=== PATIENT | male | born 1965 | race Caucasian/White ===

== ENCOUNTER 2016-07-31 01:09 | Emergency (ER) | payer BC ==
[~2016-07-31] VITALS: Ht 177.8 cm; Wt 104.6 kg
[~2016-07-31 01:09] MED LIST: AMR2 PO; ASPI81TA28 PO; ATOR-22 PO; BUPR-83 PO; GLC/500 PO; IBUP600T44 PO; INSDGI SC; LISI-461 PO; LPR25 PO; SILD100T PO; SITA50TA9 PO
[2016-07-31 01:12] VITALS: TEMP 36.6; Ht 177.8 cm; Wt 104.6 kg
[2016-07-31] MEDS ORDERED: PROMETHAZINE HCL INJ 25 MG/ML 1 ML VIAL IM STA (01:35)
[2016-07-31] MEDS ORDERED: KETOROLAC TROMETHAMINE 60 MG/2 ML VIAL IM STA (01:35)
[2016-07-31] MEDS ORDERED: MoRPHine SULFATE 4 MG/ML 1 ML CARP\\VIAL IM ONE (01:45)
[2016-07-31] MEDS ORDERED: DEXAMETHASONE SOD INJ 10 MG/ML VIAL IM ONE (01:45)
[2016-07-31] MEDS ORDERED: GLIM4TAB2 PO (02:48)
[2016-07-31] MEDS ORDERED: METO100T14 PO (02:48)
[2016-07-31] MEDS ORDERED: WLLXL300 PO (02:48)
[2016-07-31] MEDS ORDERED: VERA120C2 PO (02:48)
[2016-07-31] MEDS ORDERED: NRN100 PO (02:48)
[2016-07-31] MEDS ORDERED: INSDGIPEN SC (02:50)
[2016-07-31] MEDS ORDERED: OXYCODONE IR HOME PACK PO ONE (03:00)
[2016-07-31 03:20] VITALS: BP 144/82; PULSE 82; O2SAT 93
--- NOTE | 2016-07-31 04:30 | EMERGENCY ROOM VISIT NOTE ---
History First contact with patient: 01:21 Chief Complaint: BACK PAIN Stated Complaint: PAIN IN LEFT LOWER BACK, DOWN LEG History of Present Illness The patient is a 50 year old male who presents to the Emergency Room with complaints of right-sided low back pain that radiates down his right side leg. The patient states he has had slowly worsening symptoms over the past 3 or 4 days. He does not recall a distinct injury or trauma. He has had kidney stones in the past, but this does not feel like his kidney stones. He states that different positions and motions exacerbate his discomfort. He has been trying [id number] analgesics without relief of symptoms. He has been using the bathroom without difficulty. No saddle paresthesias. He does not report fever or chills. He does have a report of an old injury to his back 2 years ago, and occasionally this does cause him pain. He was not able to sleep the past 2 nights because of his pain, prompting him to come to the ER today for relief. He rates his discomfort an 8/10. Review of Systems More than 10 systems were reviewed and otherwise negative with the exception of history of present illness. Past Medical/Surgical History Medical Problems: (1) CALCULUS OF URETER (2) Depression (3) DIAB RADHA WO COMPL, TYPE II OR UNSPEC TYPE, NOT UNCNTRLD (4) Hyperlipidemia (5) Hypertension (6) Replacement of total knee joint Family History No pertinent family history Social History Smoking Status: Never Smoker Alcohol Use: occasionally Marital Status: Occupation Status: employed Current/Historical Medications Scheduled Aspirin (Aspirin Ec), 81 MG PO DAILY Bupropion HCl (Bupropion HCl Xl), 300 MG PO DAILY Gabapentin (Gabapentin), 100 MG PO TID Glimepiride (Glimepiride), 4 MG PO BID Insulin Glargine (Lantus Solostar), 20 UNITS SC QPM Lisinopril (Zestril), 5 MG PO DAILY Metoprolol Tartrate (Lopressor) (Lopressor), 100 MG PO BID Sitagliptin-Metformin Hcl (Janumet), 1 TAB PO BID Verapamil Hcl (Verapamil Hcl Er), 120 MG PO DAILY Allergies Coded Allergies: Levofloxacin (Verified Allergy, Mild, GI SYMPTOMS, 07/31/16) Anxiety Pneumococcal Polysaccharides (Verified Allergy, Mild, GI SYMPTOMS, 07/31/16) Flu s/s Uncoded Allergies: Tetanus/diptheria/pertussis (Adverse Reaction, Mild, GI SYMPTOMS, 02/22/14) Flu s/s Physical Exam Vital Signs Date Time Temp Pulse Resp B/P Pulse Ox O2 Delivery O2 Flow Rate FiO2 07/31/16 03:20 82 20 144/82 93 07/31/16 01:12 36.6 80 18 165/82 97 Room Air Pain Rating (0-10): 5.0 Physical Exam VITALS: Vitals are noted on the nurse's note and reviewed by myself. Vital signs stable. GENERAL: Well-developed, well-nourished, white male, who is in no acute distress and resting comfortably. Patient is cooperative with the examination. HEAD: Normocephalic atraumatic. NECK: Supple without nuchal rigidity. No lymphadenopathy. No thyromegaly. Cervical spine is nontender. HEART: Regular rate and rhythm without murmurs gallops or rubs. LUNGS: Clear to auscultation bilaterally without wheezes, rales or rhonchi. No retractions or accessory muscle use. MUSCULOSKELETAL: No muscle atrophy, erythema, or edema noted. Mild lower lumbar tenderness on palpation with right SI joint tenderness. No saddle paresthesias. Positive straight leg raise on the right. Negative straight leg raise on the left. DTRs intact to the lower extremities. NEURO: Patient was alert and oriented to person place and time. CN II through XII grossly intact. Medical Decision & Procedures Medications Administered Medications (Trade) Dose Ordered Sig/Silvano Route Start Time Stop Time Status Last Admin Dose Admin Morphine Sulfate (MoRPHine SULFATE INJ) 8 mg NOW ONCE IM 07/31/16 01:45 07/31/16 01:46 DC 07/31/16 02:03 8 MG Ketorolac Tromethamine (Toradol Inj) 60 mg NOW STAT IM 07/31/16 01:35 07/31/16 01:36 DC 07/31/16 02:03 60 MG Promethazine HCl (Phenergan Inj) 25 mg NOW STAT IM 07/31/16 01:35 07/31/16 01:36 DC 07/31/16 02:01 25 MG Dexamethasone Sodium Phosphate (Decadron Inj) 10 mg NOW ONCE IM 07/31/16 01:45 07/31/16 01:46 DC 07/31/16 02:02 10 MG Oxycodone HCl (Roxicodone Immediate Rel 5MG Home Pack) 1 homepack UD ONCE PO 07/31/16 03:00 07/31/16 03:01 DC 07/31/16 03:18 1 HOMEPACK ED Course Physical exam and history were performed. Nursing notes and EMR were reviewed. Patient appears to have low back pain symptoms with radiation down his right leg for the past few days. The patient does have a positive straight leg raise and history of old injury to his back. He does not have a recent injury. Because of the patient's discomfort I did elect to provide him a milligrams IM morphine, 60 mg IM Toradol, 10 mg IM Decadron, 25 mg IM Phenergan. X-rays were performed and do not show significant acute process. There does appear to be some chronic arthritic changes. Official radiology read is pending at the time of this dictation. Overall the patient felt much better after analgesics here in the department. He was able to rest quite comfortably and feels well for discharge home. I will give him a home pack of OxyIR and instructions to follow with his PCP in the next 1-2 days for recheck. He was otherwise invited back to the ER anytime and rated his discomfort a 2/10 at the time of her departure. 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 The chart was completed utilizing [employer] Speech Voice Recognition Software. Grammatical errors, random word insertions, pronoun errors, and incomplete sentences are an occasional consequence of this system due to software limitations, ambient noise, and hardware issues. Any formal questions or concerns about the content, text, or information contained within the body of this dictation should be directly addressed to the provider for clarification. . Medical Decision Differential diagnosis: Etiologies such as musculoskeletal, disc herniation, fracture, aortic disease, metastatic disease, cord compression, discitis, infection, renal colic, gastrointestinal, acute exacerbation of chronic back pain, sciatica, cauda equina, as well as others were entertained. Impression Primary Impression: Low back pain with sciatica Departure Information Dispostion Home / Self-Care Condition GOOD Forms HOME CARE DOCUMENTATION FORM, IMPORTANT VISIT INFORMATION Patient Instructions My [facility] Additional Instructions You were seen and evaluated today on an emergency basis only. This is not a substitute for, or an effort to provide, complete comprehensive medical care. It is not possible to recognize and treat all injuries or illnesses in a single emergency department visit. For this reason it is recommended that you followup with your primary care physician in the next 1 to 2 days for recheck of your condition. For baseline pain relief you may alternate ibuprofen and acetaminophen every 4 hours for pain control. Take 600 mg ibuprofen (Advil) and then 4 hours later take 1000 mg acetaminophen (Tylenol). Do not take more than 3000 mg acetaminophen in a single day. Oxycodone (OxyIR) 5mg (homepack): Take ONE pill every SIX hours for breakthrough pain. Avoid alcohol, operating machinery or dangerous equipment, working on ladders or roofs, DRIVING, or situations where being under the influence may be dangerous. It is recommended to use an euug-mci-lpudcob stool softener such as Colace, 100mg twice daily while taking this medication to avoid constipation. You are welcome to return to the emergency department anytime with new, worsening, or concerning symptoms.
--- NOTE | 2016-07-31 07:17 | DIAGNOSTIC IMAGING REPORT ---
LUMBAR SPINE 5 VIEWS HISTORY: Right side low back pain COMPARISON: None. FINDINGS: There is no fracture. Bilateral L5 spondylolysis with associated grade II anterolisthesis. This remains unchanged. Mild disc space narrowing at L1-L2 and moderate to space narrowing L5-S1 have slightly progressed. Severe facet degenerative changes at L5-S1 are again noted. IMPRESSION: 1. No change in the bilateral L5 spondylolysis with associated grade II anterolisthesis. 2. Mild progression of the degenerative disc disease at L1-L2 and L5-S1. 3. No fractures within the lumbar spine. Electronically signed by: Nilton Mchugh M.D. 07/31/2016 7:15 AM Dictated Date/Time: 07/31/2016 7:13 AM
== END 2016-07-31 03:20 | disposition home or self-care (01) ==
LOC: C.EDB 01:11
DX: M54.41 Lumbago with sciatica, right side (principal); E78.5 Hyperlipidemia, unspecified; I10 Essential (primary) hypertension; E11.9 Type 2 diabetes mellitus without complications; F32.9 Major depressive disorder, single episode, unspecified; Z79.4 Long term (current) use of insulin; Z79.82 Long term (current) use of aspirin; Z79.899 Other long term (current) drug therapy; Z87.442 Personal history of urinary calculi; Z87.828 Personal history of other (healed) physical injury and trauma

== ENCOUNTER → 2017-03-13 | Outpatient (CLI) | payer BC ==
[~2017-03-13] MED LIST changes: -AMR2 PO; -ATOR-22 PO; -BUPR-83 PO; -GLC/500 PO; +GLIM4TAB2 PO; -IBUP600T44 PO; -INSDGI SC; +INSDGIPEN SC; -LPR25 PO; +METO100T14 PO; +NRN100 PO; -SILD100T PO; +VERA120C2 PO; +WLLXL300 PO
--- NOTE | 2017-03-13 13:20 | DIAGNOSTIC IMAGING REPORT ---
RIGHT GREAT TOE 3 VIEWS CLINICAL HISTORY: L03.115 CELLULITIS COMPARISON: None. DISCUSSION: No acute fractures or dislocations are visualized. There are vascular calcifications present. There is no conventional radiographic evidence of osteomyelitis. There is no visible air within soft tissues. IMPRESSION: 1. No acute fractures 2. No conventional radiographic evidence of osteomyelitis Electronically signed by: Shaun Das M.D. 03/13/2017 1:18 PM Dictated Date/Time: 03/13/2017 1:17 PM
== END | disposition home or self-care (01) ==
LOC: C.RAD1850 12:54
PROVIDERS: ATTEND Student in an Organized Health Care Education/Training Program
DX: L03.115 Cellulitis of right lower limb (principal)

== ENCOUNTER 2017-05-07 08:33 | Emergency (ER) | payer OTHER ==
[~2017-05-07] VITALS: Ht 177.8 cm; Wt 103.0 kg
[~2017-05-07 08:33] MED LIST changes: +CEPH500C2 PO
[2017-05-07 08:34] VITALS: TEMP 36.6; Ht 177.8 cm; Wt 103.0 kg
[2017-05-07] MEDS ORDERED: CEFAZOLIN SOD 1000MG/7.5 ML IV PUSH IV STA (08:46)
[2017-05-07 09:10] LABS: BASO % 0.2 %; BASO ABS # 0.03 K/uL (0-0.2); EOS % 0.9 %; EOS ABS # 0.12 K/uL (0-0.5); HEMATOCRIT 41.8 % (42-52); HEMOGLOBIN 14.8 g/dL (14.0-18.0); IG# 0.04 K/uL (0.00-0.02); LYMPH % 10.8 %; LYMPH ABS # 1.45 K/uL (1.2-3.4); MEAN CELL VOLUME 88.4 fL (80-100); MEAN CORPUSCULAR HEMOGLOBIN 31.3 pg (25-34); MEAN CORPUSCULAR HGB CONC 35.4 g/dl (32-36); MEAN PLATELET VOLUME 10.5 fL (7.4-10.4); NEUT % 78.8 %; NEUT ABS # 10.54 K/uL (1.4-6.5); PLATELET COUNT 254 K/uL (130-400); RED CELL DISTRIBUTION WIDTH CV 12.7 % (11.5-14.5); WHITE BLOOD COUNT 13.38 K/uL (4.8-10.8)
[2017-05-07 09:57] LABS: CALCIUM 8.7 mg/dl (8.5-10.1); CREATININE 0.91 mg/dl (0.60-1.40); POTASSIUM 4.4 mmol/L (3.5-5.1)
--- NOTE | 2017-05-07 10:49 | DIAGNOSTIC IMAGING REPORT ---
RIGHT FOOT 3 VIEWS HISTORY: great toe infection COMPARISON: Right first toe 03/13/2017. FINDINGS: There is no fracture or dislocation. Soft tissue swelling within the dorsum of the foot and within the first toe. No evidence for osteomyelitis. Vascular calcifications are noted. Plantar and posterior calcaneal spurs. Mild degenerative changes within the midfoot. No radiopaque foreign bodies. Calcifications at the plantar fascia. IMPRESSION: 1. Soft tissue swelling within the dorsum of the foot and first toe. 2. No radiographic evidence for osteomyelitis. Electronically signed by: Nilton Mchugh M.D. 05/07/2017 10:47 AM Dictated Date/Time: 05/07/2017 10:43 AM
[2017-05-07] MEDS ORDERED: NovoLIN-R INSULIN PER UNIT CHARGE SC STA (11:19)
--- NOTE | 2017-05-07 11:22 | EMERGENCY ROOM VISIT NOTE ---
History Report prepared by Dariusz: Gustavo Lantigua Under the Supervision of: Dr. Kurt Seymour D.O. First contact with patient: 08:39 Chief Complaint: WOUND INFECTION Stated Complaint: FOOT INFECTION Nursing Triage Summary: pt to the ED with c/o sent over from wound center for streaking from right 1st digit History of Present Illness The patient is a 51 year old male who presents to the Emergency Room with complaints of a worsening infection to a wound in the toes of the right foot that began two weeks prior to this visit. The patient states that he bought a new pair of shoes two week ago that rubbed an ulcer on the first tow of his right foot. This then became infected. The patient's primary care physician started him on antibiotics and referred him to the wound clinic as he is a Type II Diabetic. He went to the wound clinic today and was sent directly here to the Emergency Department for IV antibiotics and x-ray of the wound area. 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 A total of 10 systems reviewed and were otherwise negative. Past Medical & Surgical Medical Problems: (1) CALCULUS OF URETER (2) Depression (3) DIAB RADHA WO COMPL, TYPE II OR UNSPEC TYPE, NOT UNCNTRLD (4) Hyperlipidemia (5) Hypertension (6) Replacement of total knee joint Family History Cancer Diabetes mellitus Hypertension Social History Smoking Status: Never Smoker Alcohol Use: occasionally Marital Status: Occupation Status: employed Current/Historical Medications Scheduled Aspirin (Aspirin Ec), 81 MG PO DAILY Bupropion HCl (Bupropion HCl Xl), 300 MG PO DAILY Cephalexin Monohydrate (Keflex), 500 MG PO TID Gabapentin (Gabapentin), 100 MG PO TID Glimepiride (Glimepiride), 4 MG PO BID Insulin Glargine (Lantus Solostar), 35 UNITS SC QPM Lisinopril (Zestril), 5 MG PO DAILY Metoprolol Tartrate (Lopressor) (Lopressor), 100 MG PO BID Sitagliptin-Metformin Hcl (Janumet), 1 TAB PO BID Verapamil Hcl (Verapamil Hcl Er), 120 MG PO DAILY Allergies Coded Allergies: Levofloxacin (Verified Allergy, Mild, GI SYMPTOMS, 05/07/17) Anxiety Pneumococcal Polysaccharides (Verified Allergy, Mild, GI SYMPTOMS, 05/07/17 ) Flu s/s Uncoded Allergies: Tetanus/diptheria/pertussis (Adverse Reaction, Mild, GI SYMPTOMS, 02/22/14) Flu s/s Physical Exam Vital Signs Date Time Temp Pulse Resp B/P (MAP) Pulse Ox O2 Delivery O2 Flow Rate FiO2 05/07/17 10:35 80 18 121/69 97 Room Air 05/07/17 08:34 36.6 83 16 140/86 95 Physical Exam CONSTITUTIONAL/VITAL SIGNS: Reviewed / noted above. GENERAL: Non-toxic in appearance. INTEGUMENTARY: Warm, dry, and [place]. HEAD: Normocephalic. EYES: without scleral icterus or trauma. ENT/OROPHARYNX: clear and moist. LYMPHADENOPATHY/NECK: Is supple without lymphadenopathy or meningismus. RESPIRATORY: Lungs clear and equal. CARDIOVASCULAR: Regular rate and rhythm. GI/ABDOMEN: Soft and nontender. No organomegaly or pulsatile mass. No rebound or guarding. Normal bowel sounds. EXTREMITIES: Warm and well perfused. There are two ulcerations to the right great toe, one lateral and one medially. There is redness surrounding the great toe and also a small amount of redness in the dorsal aspect of the foot. BACK: No CVA tenderness. NEUROLOGICAL: Intact without focal deficits. PSYCHIATRIC: normal affect. MUSCULOSKELETAL: Normally developed with good muscle tone. Medical Decision & Procedures ER Provider Diagnostic Interpretation: Radiology results as stated below per my review and radiologist interpretation: RIGHT FOOT 3 VIEWS HISTORY: great toe infection COMPARISON: Right first toe 03/13/2017. FINDINGS: There is no fracture or dislocation. Soft tissue swelling within the dorsum of the foot and within the first toe. No evidence for osteomyelitis. Vascular calcifications are noted. Plantar and posterior calcaneal spurs. Mild degenerative changes within the midfoot. No radiopaque foreign bodies. Calcifications at the plantar fascia. IMPRESSION: 1. Soft tissue swelling within the dorsum of the foot and first toe. 2. No radiographic evidence for osteomyelitis. Electronically signed by: Nilton Mchugh M.D. 05/07/2017 10:47 AM Dictated Date/Time: 05/07/2017 10:43 AM Laboratory Results 05/07/17 08:55 Red Blood Count 4.73, Mean Corpuscular Volume 88.4, Mean Corpuscular Hemoglobin 31.3, Mean Corpuscular Hemoglobin Concent 35.4, Mean Platelet Volume 10.5, Neutrophils (%) (Auto) 78.8, Lymphocytes (%) (Auto) 10.8, Monocytes (%) (Auto) 9.0, Eosinophils (%) (Auto) 0.9, Basophils (%) (Auto) 0.2, Neutrophils # (Auto) 10.54, Lymphocytes # (Auto) 1.45, Monocytes # (Auto) 1.20, Eosinophils # (Auto) 0.12, Basophils # (Auto) 0.03 05/07/17 08:55 Test 05/07/17 08:55 White Blood Count 13.38 K/uL (4.8-10.8) Red Blood Count 4.73 M/uL (4.7-6.1) Hemoglobin 14.8 g/dL (14.0-18.0) Hematocrit 41.8 % (42-52) Mean Corpuscular Volume 88.4 fL (80-100) Mean Corpuscular Hemoglobin 31.3 pg (25-34) Mean Corpuscular Hemoglobin Concent 35.4 g/dl (32-36) Platelet Count 254 K/uL (130-400) Mean Platelet Volume 10.5 fL (7.4-10.4) Neutrophils (%) (Auto) 78.8 % Lymphocytes (%) (Auto) 10.8 % Monocytes (%) (Auto) 9.0 % Eosinophils (%) (Auto) 0.9 % Basophils (%) (Auto) 0.2 % Neutrophils # (Auto) 10.54 K/uL (1.4-6.5) Lymphocytes # (Auto) 1.45 K/uL (1.2-3.4) Monocytes # (Auto) 1.20 K/uL (0.11-0.59) Eosinophils # (Auto) 0.12 K/uL (0-0.5) Basophils # (Auto) 0.03 K/uL (0-0.2) RDW Standard Deviation 41.0 fL (36.4-46.3) RDW Coefficient of Variation 12.7 % (11.5-14.5) Immature Granulocyte % (Auto) 0.3 % Immature Granulocyte # (Auto) 0.04 K/uL (0.00-0.02) Anion Gap 9.0 mmol/L (3-11) Est Creatinine Clear Calc Drug Dose 112.9 ml/min Estimated GFR () 111.1 Estimated GFR (Non- 95.9 BUN/Creatinine Ratio 20.3 (10-20) Calcium Level 8.7 mg/dl (8.5-10.1) Beta-Hydroxybutyric Acid 1.38 mg/dL (0.2-2.81) Laboratory results as stated above per my review. Medications Administered Medications (Trade) Dose Ordered Sig/Silvano Route Start Time Stop Time Status Last Admin Dose Admin Cefazolin Sodium (Cefazolin 1000mg Iv Push) 2,000 mg NOW STAT IV 05/07/17 08:46 05/07/17 08:49 DC 05/07/17 09:04 2,000 MG ED Course 0842: Previous medical records were reviewed. The patient was evaluated in room B11B. A complete history and physical examination was performed. 0846: Ordered Cefazolin Sodium 2000 mg IV. 1119: Ordered Regular Human Insulin 4 units. 1125: On reevaluation, the patient is resting in bed comfortably. I discussed the results and findings with the patient. He verbalized agreement of the treatment plan. The patient was discharged home. Medical Decision Differential diagnosis: Etiologies such as cellulitis, abscess, MRSA infection, DVT, necrotizing fasciitis, dermatitis, drug eruption, as well as others were entertained.. This is a 51-year-old male who presents to the ED with a chief complaint of an infection to the right toe. The patient was seen by the PCP on Saturday and started on Keflex. He first noticed the redness on Saturday. The patient states that he had been wearing a new shoe the cause some ulcerations to his right toe a couple of weeks ago. The patient was seen by the wound care center nurse today and sent here for evaluation. The doctor is apparently sick today. His vital signs here are stable. He is afebrile. Exam reveals 2 ulcerations of the right great toe. One is on the lateral and one is on the medial aspect. There is redness diffusely around the right toe and on the dorsal aspect of the foot distally. There is a small area that extends proximally along the midline of the dorsal foot but does not reach the ankle. There is no abnormal discharge noted. A white blood count of 13.3. Blood sugar was 44. Chemistries were otherwise unremarkable. X-ray did not show osteomyelitis. The patient was treated with IV Ancef. He was told the results. He was given subcutaneous insulin for his hyperglycemia. He was told the results of his tests. He is felt to be stable for discharge. He will continue his Keflex was started by his PCP. He is to have close follow-up with the wound care center and her PCP for recheck and return here for worsening or new symptoms. Medication Reconcilliation Current Medication List: was personally reviewed by me Blood Pressure Screening Patient's blood pressure: Normal blood pressure Impression Primary Impression: Cellulitis of foot Scribe Attestation The scribe's documentation has been prepared under my direction and personally reviewed by me in its entirety. I confirm that the note above accurately reflects all work, treatment, procedures, and medical decision making performed by me. Departure Information Dispostion Home / Self-Care Referrals No Doctor, Assigned (PCP) Patient Instructions My [facility] Additional Instructions Continue Keflex. Return to the emergency department for significant worsening of symptoms, fevers , vomiting or other concerns. Follow-up with wound care center or PCP for recheck in 2-3 days.
[2017-05-07 11:39] VITALS: BP 141/66; PULSE 82; O2SAT 93
[2017-05-09] MEDS ORDERED: AMOX875T PO (14:28)
[2017-05-09] MEDS ORDERED: CIPR-255 PO (14:28)
== END 2017-05-07 11:39 | disposition home or self-care (01) ==
LOC: C.EDB 08:34
DX: L03.115 Cellulitis of right lower limb (principal); F32.9 Major depressive disorder, single episode, unspecified; E11.9 Type 2 diabetes mellitus without complications; E78.5 Hyperlipidemia, unspecified; I10 Essential (primary) hypertension; Z80.9 Family history of malignant neoplasm, unspecified; Z83.3 Family history of diabetes mellitus; Z82.49 Family history of ischemic heart disease and other diseases of the circulatory system; Z79.82 Long term (current) use of aspirin; Z79.4 Long term (current) use of insulin; Z79.899 Other long term (current) drug therapy; Z88.1 Allergy status to other antibiotic agents; Z88.7 Allergy status to serum and vaccine

== ENCOUNTER → 2017-05-09 | Outpatient (CLI) | payer OTHER ==
[~2017-05-09] MED LIST changes: +AMOX875T PO; +CIPR-255 PO
--- NOTE | 2017-05-09 16:02 | DIAGNOSTIC IMAGING REPORT ---
ART DOP DUPLEX LWR EXT UNI CLINICAL HISTORY: R LEG NON HEALING WOUND arterial insufficiency TECHNIQUE: Arterial Doppler COMPARISON STUDY: None FINDINGS: Arterial Doppler evaluation of the right leg shows triphasic waveforms throughout. Monophasic waveforms are identified involving the dorsalis pedis and peroneal artery. Ankle-brachial brachial index of the right posterior tibial artery is 1.12. Dorsalis pedis is 1.21. IMPRESSION: Moderate arterial occlusive change of the right dorsalis pedis and peroneal arteries. No evidence for a high-grade or critical stenosis. Normal arterial evaluation of the right thigh The above report was generated using voice recognition software. It may contain grammatical, syntax or spelling errors. Electronically signed by: Jared Lux M.D. 05/09/2017 4:01 PM Dictated Date/Time: 05/09/2017 3:59 PM
== END | disposition home or self-care (01) ==
LOC: C.ULTR 14:57
PROVIDERS: ATTEND Physician Assistant
DX: S91.101A Unspecified open wound of right great toe without damage to nail, initial encounter (principal); X58.XXXA Exposure to other specified factors, initial encounter; I70.201 Unspecified atherosclerosis of native arteries of extremities, right leg

== ENCOUNTER → 2017-05-13 | Outpatient (CLI) | payer OTHER ==
[~2017-05-13] MED LIST changes: -CEPH500C2 PO; +GADAVIST IV PRN
--- NOTE | 2017-05-13 09:41 | DIAGNOSTIC IMAGING REPORT ---
MRI OF THE RIGHT FOREFOOT WITHOUT AND WITH GADOLINIUM CLINICAL HISTORY: Nonhealing right great toe ulcer. Possible osteomyelitis COMPARISON STUDY: Conventional radiographic study dated 05/07/2017 FINDINGS: Imaging was performed the sagittal, axial, and coronal planes before and after the administration of 10 cc of intravenous Gadavist. There is diffuse dorsal soft tissue edema. There is a small joint effusion the level of the first metatarsal phalangeal joint. There is T1 and T2 marrow edema involving the distal phalanx of the great toe. The findings are indicative of acute osteomyelitis. There is overlying soft tissue edema involving both the nailbed, as well as the plantar soft tissues, with an apparent plantar ulcer. There is mild T2 edema involving the proximal phalanx of the great toe. There is no convincing evidence of T1 edema to indicate osteomyelitis and therefore this likely represents a reactive osteitis. IMPRESSION: T1 and T2 marrow edema involving the distal phalanx of the great toe. Given the clinical history, the findings are indicative of osteomyelitis Electronically signed by: Shaun Das M.D. 05/13/2017 9:40 AM Dictated Date/Time: 05/13/2017 9:34 AM
== END ==
LOC: C.MRIBC 07:56
PROVIDERS: ATTEND Physician Assistant
DX: S91.101A Unspecified open wound of right great toe without damage to nail, initial encounter (principal); X58.XXXA Exposure to other specified factors, initial encounter

== ENCOUNTER → 2017-05-17 | Outpatient (CLI) | payer OTHER ==
[~2017-05-17] MED LIST changes: +AUGMENTIN PO; +BUPIVACAINE 0.5 % 5 MG/1 ML MPF 30ML VIAL ONE; +CIPR1TAB11 PO; +CLC100 PO; +EZET10TA63 PO; -GADAVIST IV PRN; +LCTX PO; +LIDOCAINE HCL 1% 20 ML VIAL ONE; +LINE1TAB2 PO; +METF1000 PO; +MULT-890 PO; +NVLGI/PEN SQ; +NVLGI7030 SC; +OXYC-57 PO; +POVIDONE-IODINE OP SOLN 30 ML BTL ONE
== END | disposition home or self-care (01) ==
LOC: C.CPL 16:52
PROVIDERS: ATTEND Physical Medicine & Rehabilitation Sports Medicine
DX: L97.519 Non-pressure chronic ulcer of other part of right foot with unspecified severity (principal); E11.621 Type 2 diabetes mellitus with foot ulcer; Z01.810 Encounter for preprocedural cardiovascular examination

== ENCOUNTER → 2017-05-17 | Outpatient (CLI) | payer OTHER ==
[~2017-05-17] MED LIST changes: -BUPIVACAINE 0.5 % 5 MG/1 ML MPF 30ML VIAL ONE; -LIDOCAINE HCL 1% 20 ML VIAL ONE; -POVIDONE-IODINE OP SOLN 30 ML BTL ONE
== END | disposition home or self-care (01) ==
LOC: C.RDSM 10:28
PROVIDERS: ATTEND Physical Medicine & Rehabilitation Sports Medicine
DX: S91.101A Unspecified open wound of right great toe without damage to nail, initial encounter (principal); X58.XXXA Exposure to other specified factors, initial encounter

== ENCOUNTER 2017-05-21 05:13 | Inpatient (IN) | payer OTHER ==
--- NOTE | 2017-05-20 09:07 | History and Physical ---
History & Physical Date & Time of Service: May 20, 2017 at 08:46 Chief Complaint: Right Big Toe, Claw Toes 2-5 Diabetic Foot Ulcer Primary Care Physician: Kaushal Johnson MD History of Present Illness Source: patient The patient is a 51-year-old male who presented to our office on Saturday for evaluation of her right great toe Nonhealing ulcer And probable osteomyelitis of his right great toe. He was sent to Dr. Chow by the wound clinic. He states that proximally a month prior to today he got some new shoes for work. Typically he does get his shoes from the diabetic foot clinic but this time he did not. He states that he did develop a blister on his right great toe that seemed superficial. He went to his family doctor, Dr. Johnson, and was referred to the wound clinic for treatment of the blister. He states that he was placed on antibiotics and was advised on using dressings to cover the blister and keeping it clean. He states that he did this and feels that wrapping his toe caused further breakdown in the skin of his right great toe. After approximately 10 days from the initial blister he states his antibiotics were discontinued. During that time, on no antibiotics he felt that his toe became more red and swollen. He also developed more breakdown in the skin around his great toe. He returned to the wound clinic weekly in which they debrided the wound and cleaned it and reapply the dressings. Continued to have nonhealing wounds of his right great toe. X-rays were taken back the initial time of the injury and showed no evidence of acute bony abnormality, fracture, or osteomyelitis. A recent MRI was done and shows osteomyelitis of his right distal phalanx. Due to these findings, he is referred to Dr. Chow for surgical evaluation. Currently is on Augmentin and Cipro with no significant improvement in the wounds or his toe overall. Dr. Chow discussed conservative treatment versus surgical intervention. He recommended surgical intervention and the patient agreed to proceed with surgery. He is scheduled for an irrigation, debridement of his right big toe with partial amputation of his right big toe and percutaneous flexor tenotomies of his claw toes [address] Chow on May 21, 2017. This will be performed at the [facility] and he will require a few nights in the hospital after surgery for IV antibiotics and wound management. Past Medical/Surgical History 1. Hypertension 2. History of heart palpitations and heart murmur 3. Anxiety 4. Insulin-dependent diabetes type 2 5. Obesity 6. History of kidney stones Past surgical history: 1. Left total knee arthroplasty - Done by Dr. 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[employer]) Multi-Drug Resistant Organisms History of MDRO: No Allergies Coded Allergies: Levofloxacin (Verified Allergy, Mild, GI SYMPTOMS, 05/07/17) Anxiety Pneumococcal Polysaccharides (Verified Allergy, Mild, GI SYMPTOMS, 05/07/17 ) Flu s/s Uncoded Allergies: Tetanus/diptheria/pertussis (Adverse Reaction, Mild, GI SYMPTOMS, 02/22/14) Flu s/s Home Medications Scheduled Amoxicillin & Pot Clavulanate (Augmentin 875-125 mg), 875 MG PO BID Aspirin (Aspirin Ec), 81 MG PO DAILY Bupropion HCl (Bupropion HCl Xl), 300 MG PO DAILY Ciprofloxacin Hcl (Cipro), 500 MG PO BID Gabapentin (Gabapentin), 100 MG PO TID Glimepiride (Glimepiride), 4 MG PO BID Insulin Glargine (Lantus Solostar), 45 UNITS SC QPM Lisinopril (Zestril), 5 MG PO DAILY Metoprolol Tartrate (Lopressor) (Lopressor), 100 MG PO BID Sitagliptin-Metformin Hcl (Janumet), 1 TAB PO BID Verapamil Hcl (Verapamil Hcl Er), 120 MG PO DAILY Review of Systems Constitutional: No fever, No chills, No sweats, No weight loss Eyes: No worsening of vision ENT: + dental problems (Has multiple crowns and some chipped teeth), No hearing loss, No sore throat, No tinnitus Respiratory: No cough, No sputum, No wheezing, No shortness of breath Cardiovascular: No chest pain, No edema, No palpitations Abdomen: No pain, No nausea, No vomiting, No diarrhea, No constipation Musculoskeletal: + joint pain (Right great toe), + swelling (Right great toe), No muscle pain, No calf pain Genitourinary - Male: No hematuria, No dysuria, No urinary frequency, No urinary retention, No urinary incontinence Neurologic: No memory loss, No numbness/tingling, No balance problems Hematologic / Lymphatic: No abnormal bleeding/bruising, No clotting problems Integumentary: + problem reported (Right great toe), No rash, No itch Allergic / Immunologic: + poor healing (Due to diabetes), No frequent infections Physical Exam Vital Signs Height is 5 feet 10 inches. Weight 225 pounds. BMI 32.3 General Appearance: WD/WN, no apparent distress Head: normocephalic, atraumatic Eyes: normal inspection, PERRL, EOMI, sclerae normal ENT: normal ENT inspection, hearing grossly normal, TMs normal, pharynx normal Neck: supple, no adenopathy, no carotid bruits, trachea midline Respiratory/Chest: chest non-tender, lungs clear, normal breath sounds, no respiratory distress, no accessory muscle use Cardiovascular: regular rate, rhythm, no edema, no murmur, normal peripheral pulses Abdomen/GI: normal bowel sounds, non tender, soft Extremities/Musculoskelatal: no calf tenderness, normal capillary refill, no pedal edema, + pertinent finding (Exam of his right foot: Posterior tibial pulse is not palpable, dorsalis pedis is 2+. He cannot flex the IP joint of the big toe, but can extend. There are 2 large, full-thickness ulcerations in the subcutaneous tissue one about a centimeter in diameter medially and the other one about 1.5 cm laterally. The lateral wound probes down to the bone. The toe was swollen with a deformed fungal nail. There is some redness, but not much in the way of tenderness. His partially correctable dynamic claw toes. In the standing position, he has significant claw toes with pressure on the tips of his toes. He reports intact sensation and strength is 5/5. The ankle is not swollen with good mobility.) Neurologic/Psych: no motor/sensory deficits, alert, normal mood/affect, normal reflexes, oriented x 3 Skin: normal color, warm/dry, no rash, + pertinent finding Diagnostics Diagnostic Radiology Radiology images: X-rays from February 2017 of his right foot show vascular calcifications, but no bone damage. X-rays of the right big toe done on May 17, 2017 showed lucency within the bone and erosion consistent with osteomyelitis. MRI done on May 13, 2017 shows fluid collection plantarly, with loss of flexion tendon, likely secondary to infection. Significant edema in the bone with some destruction EKG Preoperative EKG ordered and currently pending. Impression Assessment and Plan Assessment: 1. Diabetes 2. Toe deformity, toes 2 through 5. 3. Diabetic foot ulceration of the right great toe with osteomyelitis of his distal phalanx Plan: The findings on x-ray and MRI were discussed with the patient. Surgical intervention was recommended due to having osteomyelitis of the distal phalanx of the big toe with a soft tissue wound. He is scheduled for an irrigation, debridement and amputation of the right great toe, percutaneous flexor tenotomies of his claw toes 2 through 5. He has agreed agreed to proceed with surgery. Risks and complications of surgery were explained to the patient and include but are not limited to infection, bleeding, pain, scarring, nerve and blood vessel damage, weakness, wound problems, stiffness, incomplete relief of symptoms, blood clots, embolisms, heart attack, stroke and . Informed consent was obtained by Dr. Chow. There may be some issues with wound closure of his right great toe and a wound VAC might be necessary after surgery. We will obtain a preoperative EKG prior to surgery. He will be admitted after surgery for wound management, IV antibiotics, diabetic control. He most likely will need a consult after surgery for infectious disease, wound clinic, hospitalist service. Is scheduled with Dr. Chow 10-14 days after surgery for postoperative wound check. He knows to call with any further problems, questions or concerns. All questions were answered today.
[2017-05-20 11:41] VITALS: BMI 32.0
[~2017-05-21] VITALS: Ht 177.8 cm; Wt 102.3 kg
[2017-05-21] VITALS (12 sets, daily range): BP systolic 121–166; BP diastolic 73–81; PULSE 82–99; TEMP 37–37.2; O2SAT 90–98; BMI 32.0; BMI 32.4
[~2017-05-21 05:13] MED LIST changes: -AMOX875T PO; -CIPR-255 PO; -CLC100 PO; -LCTX PO; -LINE1TAB2 PO; -METF1000 PO; -MULT-890 PO; -NVLGI/PEN SQ; -NVLGI7030 SC; -OXYC-57 PO
[2017-05-21] MEDS ORDERED: SODIUM CHLORIDE 0.9% 1000ML 1,000 ML IV SCH (06:00)
[2017-05-21] MEDS ORDERED: LACTATED RINGER'S 1000ML 1,000 ML IV SCH (06:00)
[2017-05-21] MEDS ORDERED: CEFAZOLIN SOD 2000MG/15 ML IV PUSH IV SCH (06:00)
[2017-05-21] MEDS ORDERED: DEXAMETHASONE SOD INJ 4 MG/ML VIAL ONE (06:46)
[2017-05-21] MEDS ORDERED: LIDOCAINE HCL 2% 2 ML VIAL (20MG/ML) ONE (06:46)
[2017-05-21] MEDS ORDERED: MIDAZOLAM HCL 1 MG/ML 2ML VIAL ONE (06:46)
[2017-05-21] MEDS ORDERED: PROPOFOL IV EMULSION 10 MG/ML 20 ML VIAL IV ONE (06:46)
[2017-05-21] MEDS ORDERED: ONDANSETRON INJ 2 MG/ML 2 ML VIAL ONE (06:46)
[2017-05-21] MEDS ORDERED: FENTANYL CITRATE INJ 50 MCG/1 ML 2 ML VIAL ONE (06:46)
--- NOTE | 2017-05-21 07:03 | History & Physical Bridge Note ---
H&P Re-Evaluation Bridge Note: I have examined the patient, reviewed the History & Physical and in the interval since the performance of the History & Physical I have noted the following changes of clinical significance: No changes noted
[2017-05-21] MEDS ORDERED: EpHEDrine SULFATE INJ 50 MG/ML AMP IV PRN (07:45)
[2017-05-21] MEDS ORDERED: ONDANSETRON INJ 2 MG/ML 2 ML VIAL IV PRN ×2 (07:45→09:00)
[2017-05-21] MEDS ORDERED: HYDROmorphone INJ 2 MG/ML SYR/VIAL IV PRN (07:45)
[2017-05-21] MEDS ORDERED: ATROPINE SULFATE 0.1 MG/ML 5ML SYR IV PRN (07:45)
[2017-05-21] MEDS ORDERED: PHENYLEPHRINE 100MCG/ML 5ML SYR IV PRN (07:45)
--- NOTE | 2017-05-21 08:37 | [facility] Post Operative Brief Note ---
Immediate Operative Summary Operative Date May 21, 2017. Pre-Operative Diagnosis Diabetic foot ulceration of the right great toe with osteomyelitis of his distal phalanx; claw Toe deformity, toes two through five. Post-Operative Diagnosis Diabetic foot ulceration of the right great toe with osteomyelitis of his distal phalanx; claw Toe deformity, toes two through five. Procedure(s) Performed Irrigation and sharp excisional debridement. Partial amputation through the proximal phalanx of the right big toe. Percutaneous flexor digitorum longus tendon release of toes 2 and [address] Chow Rn Wellness Surgeon(s) Shelby Lopez PA-C Estimated Blood Loss 5 cc Findings Consistent with Post-Op Diagnosis Specimens Microbiology #1-Swab culture right great toe-gram stain, routine culture and sensitivity, anaerobic Microbiology #2- Distal phalanx right great toe-routine culture and sensitivity Permanent Specimen A: Distal phalanx right great toe B: Proximal phalanx right great toe Drains None Anesthesia Type General Complication(s) none Disposition Accompanied Pt To Recover: no Disposition: Recovery Room / PACU
[2017-05-21] MEDS ORDERED: BUPIVACAINE 0.5 % 5 MG/1 ML MPF 30ML VIAL INJ ONE (08:38)
[2017-05-21] MEDS ORDERED: MoRPHine SULFATE 2 MG/ML CARP IV PRN (09:00)
[2017-05-21] MEDS ORDERED: PIPERACILL/TAZOBAC CONSULT ACTIVE PRN (09:00)
[2017-05-21] MEDS ORDERED: ACETAMINOPHEN 325 MG TAB PO PRN (09:00)
[2017-05-21] MEDS ORDERED: METOCLOPRAMIDE HCL INJ 5 MG/ML 2 ML VIAL IV PRN (09:00)
--- NOTE | 2017-05-21 09:14 | [facility] Operative Report ---
Operative Report Operative Date May 21, 2017. Pre-Operative Diagnosis Diabetic foot ulceration of the right great toe with osteomyelitis of his distal phalanx; claw Toe deformity, toes two through five. Post-Operative Diagnosis Diabetic foot ulceration of the right great toe with osteomyelitis of his distal phalanx; claw Toe deformity, toes two through five. Procedure(s) Performed Irrigation and sharp excisional debridement. Partial amputation through the proximal phalanx of the right big toe. Percutaneous flexor digitorum longus tendon release of toes 2 and [address] Chow Business Management Specialist Surgeon(s) Shelby Lopez PA-C Estimated Blood Loss 5 cc Specimens Microbiology #1-Swab culture right great toe-gram stain, routine culture and sensitivity, anaerobic Microbiology #2- Distal phalanx right great toe-routine culture and sensitivity Permanent Specimen A: Distal phalanx right great toe B: Proximal phalanx right great toe Drains None Anesthesia Type General Complication(s) none Disposition no Recovery Room / PACU Indications Patient is a 51-year-old male who presented to our office for evaluation of her right great toe ulcer. He states that it started approximately 1-2 months ago. Started with a blister. He was treated as an outpatient with his family physician and at the wound care center. His wound progressively worsened. He had x-rays in February which showed no bony abnormality but a recent MRI done in April showed evidence for osteomyelitis. An x-ray was then performed of his right great toe and showed some bony destruction suggestive of osteomyelitis. Dr. Chow recommended right great toe partial amputation, irrigation and debridement and possible percutaneous flexor tenotomies of toes 2 through 5. He agreed to proceed with surgery. Risks and complications of surgery were explained to the patient and informed consent was obtained. Description of Procedure Patient was taken to the operating room and placed under general anesthesia. He was given 2 g of IV Ancef for surgical prophylaxis. Timeout was performed. He was prepped and draped in routine sterile fashion. I was present during the entire case, please see Dr. Chow's operative report for further detail. Patient was awakened and transferred to the recovery room in stable condition. I attest to the content of the Intraoperative Record and any orders documented therein. Any exceptions are noted below.
--- NOTE | 2017-05-21 09:17 | [facility] Operative Report ---
Operative Report Operative Date May 21, 2017. Pre-Operative Diagnosis Diabetic foot ulceration of the right great toe with osteomyelitis of his distal phalanx; claw Toe deformity, toes two through five. Post-Operative Diagnosis Diabetic foot ulceration of the right great toe with osteomyelitis of his distal phalanx; claw Toe deformity, toes two through five. Procedure(s) Performed Irrigation and sharp excisional debridement. Partial amputation through the proximal phalanx of the right big toe. Percutaneous flexor digitorum longus tendon release of toes 2 and [address] Chow Director Emergency Department Surgeon(s) Shelby Lopez PA-C Estimated Blood Loss 5 cc Findings Claw toe deformity of toes 2 through 4 with tight long flexor tendon. Diabetic great toe ulceration with full-thickness open wound and bone fragmentation consistent with osteomyelitis of the distal phalanx. Specimens Microbiology #1-Swab culture right great toe-gram stain, routine culture and sensitivity, anaerobic Microbiology #2- Distal phalanx right great toe-routine culture and sensitivity Permanent Specimen A: Distal phalanx right great toe B: Proximal phalanx right great toe Drains None Anesthesia Type General Complication(s) none Disposition no Recovery Room / PACU Indications Patient is a 51-year-old male with previously uncontrolled diabetes. He developed a blister secondary to shoe wear. This is progressed over the past month. He has 2 open wounds on the plantar aspect of the great toe. The lateral one of these appears to be full-thickness down to bone. MRI and x-ray showed findings consistent with osteomyelitis. Surgical surgical treatment in the form of irrigation debridement and partial amputation is recommended. Additionally he has claw toe deformities with tight flexor tendons of toes 2 through 5. Flexor tenotomy is considered to help relieve pressure on the distal aspect of the toe. Description of Procedure Patient was identified as Maury Juarez. He identified the operative site as the right foot. I marked individual toe was marked with my initials. A preop surgical timeout was performed. Preop dose of IV antibiotics was given. Informed consent was obtained. He was positioned supine on the OR table with the tourniquet on the right calf below the fibular neck. The leg was double prepped with chlorhexidine scrub and Betadine paint. Early mobilization will be utilized for DVT prophylaxis. Intraoperatively he will have SCDs. The preoperative examination showed that there was a superficial ulceration about a centimeter in in diameter located on the plantar medial aspect of the toe at about the level of the interphalangeal joint. There was some skin eschar which was removed. He had a large fungal infected horn nail which was removed. There was a ulceration medially running from close to the end of the toe to proximal to the IP joint. This was about 2 cm long and a centimeter wide with necrotic appearing tissue and black eschar distally. This probed directly down to bone proximally. Silverskiold's test was negative. The ankle could be dorsiflexed to neutral it with the knee in the extended position. There were claw toe deformities with tight flexor tendons. When the ankle was plantar flexed the toes assumed a reasonably relaxed position and the DIP joint could be fully extended. When the ankle was dorsiflexed the toe was clogged and the DIP joints became hyperflexed with palpable tension on the flexor tendon. The limb was exsanguinated with gravity. The tourniquet inflated tone 25 mmHg. At the conclusion of the operation the surgeon and assistants changed their gloves and fresh instruments were utilized. A percutaneous tenotomies were performed at the level of the middle phalanx distal aspect. The knife was introduced longitudinally in line with the toe was then turned sideways and brought along the bone until the tendon was completely released. The third toe incision was inadvertently made slightly large larger which required closure with a 4-0 nylon suture. Care was taken to stay at the level of the bone. The toes had good capillary refill at the conclusion of this procedure the other percutaneous tenotomies were left open. This relieved the tension on the toes and improved their alignment with the ankle in weightbearing plantarflexion simulated position. The fifth toe was left as is and did not have significant tension. I performed a sign a meat amputation first removing the nail. Then the germinal matrix and nailbed were excised. The distal phalanx was then excised in subperiosteal fashion using electrocautery and knife. Fragmentation at the proximal base was noted on its plantar aspect with several fragments of bone. The flexor tendon was necrotic and slightly retracted. Extraneous pieces of bone work sought out and removed were encountered especially proximally. The flexor tendon was brought into the wound and transected. The plantar plate which also appeared to be somewhat necrotic was also debrided. I then performed sharp excisional debridement with a knife and/or rongeur to completely debride the wound bed. Most of the distal phalanx appeared fine but the proximal base was softened and fragmented consistent with osteomyelitis. I then went ahead and debrided both ulcerations back to healthy tissue. This resulted in 2 large holes in the distal plantar skin flap with minimal skin bridges in between. This was not possible to repair this. I therefore elected to amputate at approximate more proximal level. I amputated the plantar distal skin bridge preserving as far distal as possible. I then made mid lateral incisions dorsal to the neurovascular bundles sub-and subperiosteally exposed the distal portion of the proximal phalanx of the great toe. I then resected the distal 10-12 mm and rounded this off with a rongeur. A sales representatives image was obtained with the fluoroscope in the AP projection. The skin could then be closed in a [place] fashion top to bottom. The tourniquet was let down after and then meticulous hemostasis was performed. There was some active but not profuse bleeding present. Irrigation was then performed with Betadine lavage 500 cc followed by approximately 250 cc of sterile saline. The wound was then closed in a tension-free fashion using 4-0 nylon with well approximated skin edges and healthy tissue. Local anesthetic was then injected into the big toe for digital block and into the incisions of the lesser toes. This was 1% lidocaine and 0.5% Marcaine without epinephrine. Leg was cleaned with wet and dry sponges and dressing consisting of Xeroform 4 x 4's fluffs between the toes cast padding and Marko wrap in a postop shoe was then applied. Patient is awake from anesthesia without difficulty taken to the recovery room in stable condition the resected bone was sent for biopsy and culture. A swab culture was also obtained of the osteomyelitis site of the wound bed. There were no complications. Counts were correct in the case. Blood loss was approximately 5 cc. At the conclusion of the procedure spoke to patient's informed her my findings and gave detailed postoperative instructions. The plan moving forward will be weightbearing as tolerated with a pair crutches. Elevation. Medicine and ID consults. He will be placed on intravenous Zosyn after consulting with pharmacy. I attest to the content of the Intraoperative Record and any orders documented therein. Any exceptions are noted below.
--- NOTE | 2017-05-21 09:19 | DIAGNOSTIC IMAGING REPORT ---
Intraoperative great toe single view CLINICAL HISTORY: Right great toe amputation COMPARISON STUDY: May 17, 2017 FINDINGS: A single fluoroscopic spot film is provided for interpretation. 1 seconds of fluoroscopic time was utilized. There are postsurgical changes of an amputation of the great toe at the level of the distal aspect of the proximal phalanx. IMPRESSION: Right great toe amputation. Electronically signed by: Shaun Das M.D. 05/21/2017 9:17 AM Dictated Date/Time: 05/21/2017 9:16 AM
--- NOTE | 2017-05-21 09:34 | Anesthesiology Progress Note ---
Anesthesia Post Op Note Date & Time May 21, 2017 at 09:34 Vital Signs Pain Intensity: 0 Vital Signs Past 12 Hours Date Time Temp Pulse Resp B/P (MAP) Pulse Ox O2 Delivery O2 Flow Rate FiO2 05/21/17 09:25 82 16 122/72 92 Room Air 05/21/17 09:15 83 18 116/76 98 Oxymask 10 05/21/17 09:05 81 15 123/73 97 Oxymask 10 05/21/17 08:58 36.3 82 22 102/65 96 Oxymask 10 05/21/17 05:45 37.2 87 20 147/79 98 Room Air 05/21/17 05:40 37.2 87 20 147/79 (101) 96 Room Air Notes Mental Status: alert / awake / arousable, participated in evaluation Pt Amnestic to Procedure: Yes Nausea / Vomiting: adequately controlled Pain: adequately controlled Airway Patency, RR, SpO2: stable & adequate BP & HR: stable & adequate Hydration State: stable & adequate Anesthetic Complications: no major complications apparent
[2017-05-21] MEDS ORDERED: PIPERACILL/TAZOBAC IV 3.375 GM in DEXTROSE 5% 100ML IV STA (10:21)
--- NOTE | 2017-05-21 11:55 | Medical Consult ---
Consultation Date of Consultation: May 21, 2017. Attending Physician: Luis Chow M.D. Reason for Consultation: Antibiotic recommendations History of Present Illness 51-year-old male well known to me from [facility], with diabetes mellitus, who has had nonhealing ulceration of his right great toe for more than 1 month. He has been treated with combination of Augmentin and ciprofloxacin with prior cultures growing methicillin sensitive Staph aureus and coagulase-negative Staph. He has had no improvement and more recently developed progressive redness and swelling and has evidence of osteomyelitis. He is now status post distal amputation of the toe. He denies any pain currently. He has not had any significant fever or chills or other systemic complaints. Past Medical/Surgical History Medical Problems: (1) Cellulitis of foot Status: Acute (2) Low back pain with sciatica Status: Acute Medical Problems: (1) CALCULUS OF URETER (2) Depression (3) DIAB RADHA WO COMPL, TYPE II OR UNSPEC TYPE, NOT UNCNTRLD (4) Diabetic ulcer of right great toe (5) Hyperlipidemia (6) Hypertension (7) Replacement of total knee joint Surgical Problems: (1) S/P amputation Family History Cancer Diabetes mellitus Hypertension Social History Smoking Status: Never Smoker Smokeless Tobacco Use: No Alcohol Use: States he drinks approximately 2 alcoholic drinks per week Drug Use: none Marital Status: 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[email or web address]) Allergies Coded Allergies: Tetanus Toxoid (Verified Allergy, Unknown, TETANUS/DIPTHERIA/PERTUSSIS-GI UPSTE/BODY ACHES, 05/21/17) OK IF MULTIPLE VACCINES GIVEN SEPARATELY PER PT Levofloxacin (Verified Adverse Reaction, Mild, GI SYMPTOMS, 05/21/17) Anxiety Pneumococcal Polysaccharides (Verified Adverse Reaction, Unknown, GI SYMPTOMS-OK IF MULTIPLE VACCINES GIVEN SEPARATELY, 05/21/17) Flu s/s Current Inpatient Medications Current Inpatient Medications Medications (Trade) Dose Ordered Sig/Silvano Route Start Time Stop Time Status Last Admin Dose Admin Sodium Chloride 1,000 ml @ 15 mls/hr Q24H IV 05/21/17 06:00 05/22/17 05:59 Cefazolin Sodium (Ancef 2000mg Iv Push) 2,000 mg PREOP IV 05/21/17 06:00 05/21/17 18:00 05/21/17 07:15 2,000 MG Lactated Ringer's 1,000 ml @ 15 mls/hr Q24H IV 05/21/17 06:00 05/22/17 05:59 05/21/17 05:37 15 MLS/HR Hydromorphone HCl (Dilaudid Inj) 0.5 mg Q5M PRN IV 05/21/17 07:45 05/21/17 12:45 Ondansetron HCl (Zofran Inj) 4 mg ONE PRN IV 05/21/17 07:45 05/21/17 12:45 Ephedrine Sulfate (EpHEDrine SULFATE INJ) 5 mg Q5M PRN IV 05/21/17 07:45 05/21/17 12:45 Atropine Sulfate (Atropine Sulfate 0.1mg/ml Inj) 0.5 mg Q1M PRN IV 05/21/17 07:45 05/21/17 12:45 Phenylephrine HCl (Maicol-Synephrine 500MCG/5ML Syr) 100 mcg Q5M PRN IV 05/21/17 07:45 05/21/17 12:45 Acetaminophen (Tylenol Tab) 650 mg Q6H PRN PO 05/21/17 09:00 06/20/17 08:59 Metoclopramide HCl (Reglan Inj) 10 mg Q6H PRN IV 05/21/17 09:00 06/20/17 08:59 Ondansetron HCl (Zofran Inj) 4 mg Q6H PRN IV 05/21/17 09:00 06/20/17 08:59 Pantoprazole Sodium (Protonix Tab) 40 mg QAM PO 05/21/17 09:00 06/20/17 08:59 UNV Potassium Chloride 10 meq/ Sodium Chloride 1,005 ml @ 100 mls/hr Q10H3M IV 05/21/17 08:58 06/20/17 08:57 UNV Oxycodone HCl (Roxicodone Immediate Rel Tab) 1-2 TABS FOR PAIN 1 TABLET ... Q4H PRN PO 05/21/17 09:00 06/04/17 08:59 Morphine Sulfate (MoRPHine SULFATE INJ) If PO analgesic is order... Q2H PRN IV 05/21/17 09:00 06/04/17 08:59 UNV Docusate Sodium (coLACE CAP) 100 mg BID PO 05/21/17 09:00 06/20/17 08:59 UNV Multivitamins (Multivitamin Tab) 1 tab QAM PO 05/21/17 09:00 06/20/17 08:59 UNV Piperacillin Sod/ Tazobactam Sod 3.375 gm/Dextrose 115 ml @ 28.75 mls/ hr Q8H IV 05/21/17 16:00 07/02/17 15:59 Miscellaneous Information (Consult) 1 ea UD PRN N/A 05/21/17 09:00 06/20/17 08:59 Review of Systems All systems were reviewed and are negative except as per HPI Physical Exam Date Time Temp Pulse Resp B/P (MAP) Pulse Ox O2 Delivery O2 Flow Rate FiO2 05/21/17 10:54 83 16 123/74 (90) 94 05/21/17 10:31 84 16 123/76 (92) 90 Room Air 05/21/17 10:24 92 Room Air 05/21/17 09:45 37.2 86 16 121/75 (90) 92 Room Air 05/21/17 09:45 92 Room Air 05/21/17 09:35 36.3 83 16 122/70 92 Room Air 05/21/17 09:25 82 16 122/72 92 Room Air 05/21/17 09:15 83 18 116/76 98 Oxymask 10 05/21/17 09:05 81 15 123/73 97 Oxymask 10 05/21/17 08:58 36.3 82 22 102/65 96 Oxymask 10 05/21/17 05:45 37.2 87 20 147/79 98 Room Air 05/21/17 05:40 37.2 87 20 147/79 (101) 96 Room Air General Appearance: WD/WN, no apparent distress Head: normocephalic, atraumatic Eyes: normal inspection, EOMI, sclerae normal ENT: normal ENT inspection, hearing grossly normal, pharynx normal Neck: supple, no adenopathy, thyroid normal, trachea midline Respiratory/Chest: chest non-tender, lungs clear, normal breath sounds, no respiratory distress Cardiovascular: regular rate, rhythm, no gallop, no murmur Abdomen/GI: normal bowel sounds, non tender, soft, no organomegaly Back: normal inspection, no CVA tenderness Extremities/Musculoskelatal: no calf tenderness, normal capillary refill, non- tender Neurologic/Psych: alert, normal mood/affect, oriented x 3 Skin: normal color, warm/dry, no rash, + pertinent finding (Surgical dressing intact) Lymphatic: no adenopathy Laboratory Results Date/Time Source Procedure Growth Status 05/21/17 07:54 Tissue Toe Right 1 Gram Stain - Final Resulted 05/21/17 07:54 Tissue Toe Right 1 Bacterial Culture Pending Resulted 05/21/17 07:50 Drainage-Deep Toe Right 1 Gram Stain - Final Resulted 05/21/17 07:50 Drainage-Deep Toe Right 1 Bacterial Culture Pending Resulted Last 24 Hours Test 05/21/17 05:42 05/21/17 09:11 Bedside Glucose 227 mg/dl 165 mg/dl Intraoperative great toe single view CLINICAL HISTORY: Right great toe amputation COMPARISON STUDY: May 17, 2017 FINDINGS: A single fluoroscopic spot film is provided for interpretation. 1 seconds of fluoroscopic time was utilized. There are postsurgical changes of an amputation of the great toe at the level of the distal aspect of the proximal phalanx. IMPRESSION: Right great toe amputation. Electronically signed by: Shaun Das M.D. 05/21/2017 9:17 AM Dictated Date/Time: 05/21/2017 9:16 AM The status of this report is Signed. Draft = Not yet reviewed or approved by Radiologist. Signed = Reviewed and approved by Radiologist. <AttendingPhy>Luis Chow M.D.</AttendingPhy> <FamilyPhy>Kaushal Johnson MD</FamilyPhy> <PrimaryPhy>Kaushal Johnson MD</PrimaryPhy > <UnitNumber>[id number]</UnitNumber> <VisitNumber>[id number]</VisitNumber> < PatientName>[place] LOMBARDI</PatientName> <DateOfBirth>1965</DateOfBirth > <Location>[facility]</ Assessment & Plan Right great toe osteomyelitis and diabetic male now status post amputation, with previous cultures positive for methicillin sensitive Staph aureus. Current treatment with Zosyn appropriate, I will adjust once final operative cultures available. Given removal of infected bone, length of antibiotics will be determined by clinical response and wound healing. Will follow.
[2017-05-21] MEDS ORDERED: MoRPHine SULFATE 4 MG/ML 1 ML CARP\\VIAL IV PRN (12:45)
[2017-05-21] MEDS: POTASSIUM CHLORIDE INJ 10 MEQ in SODIUM CHLORIDE 0.9% 1000ML 1,000 ML IV SCH ×2 (12:55→23:04)
[2017-05-21] MEDS ORDERED: DEXTROSE 50% 50 ML SYR IV PRN ×2 (13:15→17:15)
[2017-05-21] MEDS ORDERED: GLUCAGON FOR INJ 1 MG VIAL SQ PRN ×2 (13:15→17:15)
[2017-05-21] MEDS ORDERED: GLUCOSE 40% GEL 15 GM TUBE PO PRN ×2 (13:15→17:15)
[2017-05-21] MEDS ORDERED: GLUCOSE 10 TABS/TUBE PO PRN ×2 (13:15→17:15)
--- NOTE | 2017-05-21 13:33 | Medical Consult ---
Consultation Date of Consultation: May 21, 2017. Attending Physician: Luis Chow M.D. Reason for Consultation: diabetes management History of Present Illness 51 years old man with past medical history of diabetes mellitus insulin requiring and peripheral neuropathy, also patient has hypertension and mild obesity. As per patient he was trying to wear special diabetic footwear that was slightly tight and cause blisters in his foot to involve unruptured. Later on his blister got infected. Patient came for an elective debridement. As per infectious diseases note done by Dr. Vincent, outpatient cultures grew MSSA , currently patient is in [facility] and Dr. Vincent agrees with that Patient admits to having insulin requiring diabetes, takes Lantus 45 units every night, not on any sliding scale or any other oral diabetes medication. 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[employer]) Allergies Coded Allergies: Levofloxacin (Verified Allergy, Mild, GI SYMPTOMS, 05/21/17) Anxiety Pneumococcal Polysaccharides (Verified Allergy, Mild, GI SYMPTOMS-OK IF MULTIPLE VACCINES GIVEN SEPARATELY, 05/21/17) Flu s/s Tetanus Toxoid (Verified Allergy, Unknown, TETANUS/DIPTHERIA/PERTUSSIS-GI UPSTE/BODY ACHES, 05/21/17) OK IF MULTIPLE VACCINES GIVEN SEPARATELY PER PT Current Inpatient Medications Current Inpatient Medications Medications (Trade) Dose Ordered Sig/Silvano Route Start Time Stop Time Status Last Admin Dose Admin Sodium Chloride 1,000 ml @ 15 mls/hr Q24H IV 05/21/17 06:00 05/22/17 05:59 Cefazolin Sodium (Ancef 2000mg Iv Push) 2,000 mg PREOP IV 05/21/17 06:00 05/21/17 18:00 05/21/17 07:15 2,000 MG Lactated Ringer's 1,000 ml @ 15 mls/hr Q24H IV 05/21/17 06:00 05/22/17 05:59 05/21/17 05:37 15 MLS/HR Acetaminophen (Tylenol Tab) 650 mg Q6H PRN PO 05/21/17 09:00 06/20/17 08:59 Metoclopramide HCl (Reglan Inj) 10 mg Q6H PRN IV 05/21/17 09:00 06/20/17 08:59 Ondansetron HCl (Zofran Inj) 4 mg Q6H PRN IV 05/21/17 09:00 06/20/17 08:59 Pantoprazole Sodium (Protonix Tab) 40 mg QAM PO 05/22/17 09:00 05/25/17 10:00 Potassium Chloride 10 meq/ Sodium Chloride 1,005 ml @ 100 mls/hr Q10H3M IV 05/21/17 12:33 06/20/17 12:32 05/21/17 12:55 100 MLS/HR Oxycodone HCl (Roxicodone Immediate Rel Tab) 1-2 TABS FOR PAIN 1 TABLET ... Q4H PRN PO 05/21/17 09:00 06/04/17 08:59 Morphine Sulfate (MoRPHine SULFATE INJ) 2 mg Q2H PRN IV 05/21/17 09:00 06/04/17 08:59 Docusate Sodium (coLACE CAP) 100 mg BID PO 05/21/17 21:00 06/20/17 20:59 Multivitamins (Multivitamin Tab) 1 tab QAM PO 05/22/17 09:00 06/21/17 08:59 Piperacillin Sod/ Tazobactam Sod 3.375 gm/Dextrose 115 ml @ 28.75 mls/ hr Q8H IV 05/21/17 16:00 07/02/17 15:59 Miscellaneous Information (Consult) 1 ea UD PRN N/A 05/21/17 09:00 06/20/17 08:59 Morphine Sulfate (MoRPHine SULFATE INJ) 4 mg Q2H PRN IV 05/21/17 12:45 06/04/17 12:44 Review of Systems Review of system Constitutional: No fever / no chills / no sweats / no weakness / no fatigue Eyes: no blurring of vision / no eye pain / no discharge / no redness ENT: no hearing loss / no epistaxis /no swallowing problems Respiratory: no cough / no wheezing / no SOB / no hemoptysis Cardiovascular: no Chest pain / no lower extremity edema / no palpitation Abdomen: no pain / no nausea / no vomiting / no constipation Musculoskeletal: Aside from her right foot which is currently wrapped, no joint pain / no muscle pain / no joint swelling Genitourinary: no dysuria / no incontinence / no urinary retention Neurologic: no focal weakness / no numbness/tingling / no ataxia Psychiatric: no depression symptoms / no anxiety / no insomnia Endocrine: no excessive thirst / no excessive urination Hematologic: no abnormal bleeding / no bruising / no LN swelling Skin: No rash / no pallor Physical Exam Date Time Temp Pulse Resp B/P (MAP) Pulse Ox O2 Delivery O2 Flow Rate FiO2 05/21/17 13:01 92 18 136/78 (97) 05/21/17 12:08 82 18 123/73 (90) 91 Room Air 05/21/17 10:54 83 16 123/74 (90) 94 05/21/17 10:31 84 16 123/76 (92) 90 Room Air 05/21/17 10:24 92 Room Air 05/21/17 09:45 37.2 86 16 121/75 (90) 92 Room Air 05/21/17 09:45 92 Room Air 05/21/17 09:35 36.3 83 16 122/70 92 Room Air 05/21/17 09:25 82 16 122/72 92 Room Air 05/21/17 09:15 83 18 116/76 98 Oxymask 10 05/21/17 09:05 81 15 123/73 97 Oxymask 10 05/21/17 08:58 36.3 82 22 102/65 96 Oxymask 10 05/21/17 05:45 37.2 87 20 147/79 98 Room Air 05/21/17 05:40 37.2 87 20 147/79 (101) 96 Room Air Physical examination General patient appears to be comfortable, not in acute distress HEENT: Atraumatic , normocephalic /no jaundice /no pallor /anicteric /no dry mucous membrane /normal external ear inspection Neck: Supple /no swelling /central trach Heart: S1/S2 normal/regular rate and rhythm/no gallop /no rub /no murmur Lungs: Clear to auscultation bilaterally/normal chest with expansion/no rhonchi/ no rales/no wheezing/no use of accessory muscles of respiration Abdomen: Soft/nontender/no guarding/no rebound/no organomegaly/no pulsatile mass Musculoskeletal: No swelling/no edema/no tenderness/normal range of motion Neuro exam: Awake alert oriented 3/cranial nerves II through XII appear to be intact/sensation intact/moves all extremities/no abnormal movements Psychiatric evaluation: No depressed mood/normal affect Skin: No rash on exposed skin area/no erythema Extremity: Left lower extremity showed normal pulse/no pitting edema/no clubbing or cyanosis, right lower extremity is wrapped Endocrine/lymphatic: No obvious lymphadenopathy /no lymphedema Laboratory Results Last 24 Hours Test 05/21/17 05:42 05/21/17 09:11 05/21/17 12:13 05/21/17 13:14 Bedside Glucose 227 mg/dl 165 mg/dl 273 mg/dl Assessment & Plan 51-year-old male with insulin-dependent diabetes mellitus and peripheral neuropathy, hypertension and mild obesity presented to the hospital for an elective I&D/debridement of right lower extremity. Status post incision, debridement, partial amputation of proximal phalanx of right big toe and percutaneous flexor digitorum longus tendon release of toes 2 and 3 and 4, postoperative day #0 Assessment: Right foot infected diabetic ulcer plus osteomyelitis proximal phalanx of right big toe status post debridement/partial proximal phalanx amputation/tendon release Diabetes mellitus insulin requiring Hypertension Peripheral neuropathy Mild obesity Plan Status post orthopedic procedure, went uneventful full, postoperative day #0 Patient tolerated procedure well with minimal blood loss Appears to be stable Restarted patient metoprolol on 25 mg p.o. twice daily instead of 100 mg twice daily as his blood pressure is normal at this point, hold the rest of blood pressure medications Restarted patient Lantus plus sliding scale, check hemoglobin A1c Continue antibiotics as per Dr. Vincent Follow-up labs Ensure adequate oral/parenteral intake Pain management Physical therapy initiation as per primary orthopedic team DVT prophylaxis as per the choice of primary orthopedic team
[2017-05-21] MEDS ORDERED: INSULIN HUMAN REGULAR SC SCH (13:34)
[2017-05-21] MEDS: METOPROLOL TARTRATE 50 MG TAB PO SCH ×2 (13:53→20:46)
[2017-05-21 14:00] LABS: BASO % 0.2 %; BASO ABS # 0.02 K/uL (0-0.2); HEMOGLOBIN 13.8 g/dL (14.0-18.0); IG# 0.02 K/uL (0.00-0.02); LYMPH % 7.3 %; LYMPH ABS # 0.65 K/uL (1.2-3.4); MEAN CORPUSCULAR HGB CONC 34.5 g/dl (32-36); MEAN PLATELET VOLUME 9.7 fL (7.4-10.4); MONO % 1.7 %; MONO ABS # 0.15 K/uL (0.11-0.59); NEUT % 90.6 %; NEUT ABS # 8.07 K/uL (1.4-6.5); PLATELET COUNT 336 K/uL (130-400); RED CELL DISTRIBUTION WIDTH SD 41.2 fL (36.4-46.3); WHITE BLOOD COUNT 8.91 K/uL (4.8-10.8)
[2017-05-21 14:23] LABS: CALCIUM 8.2 mg/dl (8.5-10.1); CREATININE 1.19 mg/dl (0.60-1.40); POTASSIUM 4.8 mmol/L (3.5-5.1)
[2017-05-21] MEDS: PIPERACILL/TAZOBAC IV 3.375 GM in DEXTROSE 5% 100ML 100 ML IV SCH ×2 (16:09→23:25)
--- NOTE | 2017-05-21 16:13 | Orthopedic Progress Note ---
Orthopedic Progress Note Date of Service May 21, 2017. Subjective Post OP Day: 0 Reports: feeling well, pain controlled w PO medications, Denies: complaints, chest pain, SOB, nausea / vomiting, light headedness, calf pain Additional Notes: States no pain in right toe at this point. States that "it was the best anesthesia he's ever had". He has been out of bed, complaining of something rubbing on back of right heel. Objective calves soft nontender, N/V intact, capillary refill less than 2 sec., dressing C /D/I, A&O x3, toes mobile Post op shoe removed while in bed, pressure he was feeling was immediately relieved with post op shoe coming off. Dressings left intact. Heels off bed, elevated on pillow. Ice pack in place. Tolerates ankle ROM. Date Time Temp Pulse Resp B/P (MAP) Pulse Ox O2 Delivery O2 Flow Rate FiO2 05/21/17 13:01 92 18 136/78 (97) 05/21/17 12:08 82 18 123/73 (90) 91 Room Air 05/21/17 10:54 83 16 123/74 (90) 94 05/21/17 10:31 84 16 123/76 (92) 90 Room Air 05/21/17 10:24 92 Room Air 05/21/17 09:45 37.2 86 16 121/75 (90) 92 Room Air 05/21/17 09:45 92 Room Air 05/21/17 09:35 36.3 83 16 122/70 92 Room Air 05/21/17 09:25 82 16 122/72 92 Room Air 05/21/17 09:15 83 18 116/76 98 Oxymask 10 05/21/17 09:05 81 15 123/73 97 Oxymask 10 05/21/17 08:58 36.3 82 22 102/65 96 Oxymask 10 05/21/17 05:45 37.2 87 20 147/79 98 Room Air 05/21/17 05:40 37.2 87 20 147/79 (101) 96 Room Air Laboratory Results 24 Hours: Test 05/21/17 13:40 White Blood Count 8.91 K/uL Red Blood Count 4.60 M/uL Hemoglobin 13.8 g/dL Hematocrit 40.0 % Mean Corpuscular Volume 87.0 fL Mean Corpuscular Hemoglobin 30.0 pg Mean Corpuscular Hemoglobin Concent 34.5 g/dl Platelet Count 336 K/uL Mean Platelet Volume 9.7 fL Neutrophils (%) (Auto) 90.6 % Lymphocytes (%) (Auto) 7.3 % Monocytes (%) (Auto) 1.7 % Eosinophils (%) (Auto) 0.0 % Basophils (%) (Auto) 0.2 % Neutrophils # (Auto) 8.07 K/uL Lymphocytes # (Auto) 0.65 K/uL Monocytes # (Auto) 0.15 K/uL Eosinophils # (Auto) 0.00 K/uL Basophils # (Auto) 0.02 K/uL Assessment & Plan Assessment: S/P right great toe partial amputation, flexor tenotomies of toes 2-[address] Chow Plan: Ice/elevate right foot to relieve pain/swelling Post op shoe when out of bed right foot for ambulation Use walker or crutches to assist with ambulation. Regular diet as ordered Appreciate medicine assistance for diabetic management Continue IV zosyn, cultures pending. May be out of bed as tolerated, weight bear as tolerated RLE with post op shoe on. Plan for discharge to home once antibiotic determined based on culture results. All questions answered, will discuss findings with Dr. Chow Will recheck in AM. Call with questions.
[2017-05-21] MEDS ORDERED: DC ALL PREVIOUSLY ORDERED DIABETES MEDS ONE (17:15)
[2017-05-21] MEDS: LACTOBACILLUS ACIDOPHILUS (FLORANEX) TAB PO SCH (18:10)
[2017-05-21] MEDS: INSULIN ASPART 100 UNITS/ML 3 ML PEN SC SCH ×2 (18:18→20:54)
[2017-05-21] MEDS: EZETIMIBE 10MG TAB PO SCH (20:45)
[2017-05-21] MEDS: GABAPENTIN 100 MG CAP PO SCH (20:45)
[2017-05-21] MEDS: DOCUSATE SODIUM 100 MG CAP PO SCH (20:46)
[2017-05-21] MEDS: INSULIN GLARGINE SOLOSTAR 100 UNITS/ML 3 ML PEN SC SCH (20:55)
[2017-05-21] MEDS ORDERED: INSULIN GLARGINE SOLOSTAR 100 UNITS/ML 3 ML PEN SC SCH (21:00)
[2017-05-21] MEDS: OXYCODONE HCL IR 5 MG TAB (IMMEDIATE RELEASE) PO PRN (21:01)
[2017-05-22] VITALS (7 sets, daily range): BP systolic 142–159; BP diastolic 74–83; PULSE 78–96; TEMP 36.6–37; O2SAT 93–96; BMI 32.4
[2017-05-22 05:32] LABS: BASO % 0.1 %; BASO ABS # 0.01 K/uL (0-0.2); EOS % 0.1 %; EOS ABS # 0.01 K/uL (0-0.5); HEMOGLOBIN 13.2 g/dL (14.0-18.0); IG# 0.04 K/uL (0.00-0.02); MEAN CELL VOLUME 86.4 fL (80-100); MEAN CORPUSCULAR HGB CONC 34.7 g/dl (32-36); MEAN PLATELET VOLUME 9.3 fL (7.4-10.4); MONO % 7.8 %; NEUT % 78.7 %; NEUT ABS # 12.13 K/uL (1.4-6.5); PLATELET COUNT 310 K/uL (130-400); RED CELL DISTRIBUTION WIDTH CV 12.8 % (11.5-14.5); RED CELL DISTRIBUTION WIDTH SD 40.6 fL (36.4-46.3); WHITE BLOOD COUNT 15.39 K/uL (4.8-10.8)
[2017-05-22 06:17] LABS: ALBUMIN 2.6 gm/dl (3.4-5.0); CALCIUM 8.4 mg/dl (8.5-10.1); CREATININE 0.8 mg/dl (0.60-1.40); POTASSIUM 3.9 mmol/L (3.5-5.1); TOTAL PROTEIN 6.3 gm/dl (6.4-8.2)
[2017-05-22 06:59] LABS: HEMOGLOBIN A1C 11.1 % (4.5-5.6)
--- NOTE | 2017-05-22 07:56 | Anesthesiology Progress Note ---
Anesthesia Post Op Note Date & Time May 22, 2017 at 07:55 Vital Signs Pain Intensity: 0.0 Vital Signs Past 12 Hours Date Time Temp Pulse Resp B/P (MAP) Pulse Ox O2 Delivery O2 Flow Rate FiO2 05/22/17 03:41 37.0 96 16 142/74 (96) 93 Room Air 05/21/17 22:58 37.1 93 16 141/80 (100) 95 Room Air 05/21/17 20:30 97 166/77 (106) Notes Mental Status: alert / awake / arousable, participated in evaluation Pt Amnestic to Procedure: Yes Nausea / Vomiting: adequately controlled Pain: adequately controlled Airway Patency, RR, SpO2: stable & adequate BP & HR: stable & adequate Hydration State: stable & adequate Anesthetic Complications: no major complications apparent
--- NOTE | 2017-05-22 08:28 | Orthopedic Progress Note ---
Orthopedic Progress Note Date of Service May 22, 2017. Subjective Post OP Day: 1 Reports: feeling well, pain controlled w PO medications, Denies: complaints, chest pain, SOB, nausea / vomiting, light headedness, calf pain Additional Notes: States no pain in right foot. Tolerates up and ambulation with walker. Post op shoe in place. Tolerating diet Objective calves soft nontender, capillary refill less than 2 sec., A&O x3, toes mobile Tolerates gentle ROM of toes right foot. Dressings with visible dried bloody drainage but not soaking through dressings. Date Time Temp Pulse Resp B/P (MAP) Pulse Ox O2 Delivery O2 Flow Rate FiO2 05/22/17 07:55 36.8 96 20 152/80 (104) 96 Room Air 05/22/17 07:20 Room Air 05/22/17 03:41 37.0 96 16 142/74 (96) 93 Room Air 05/21/17 22:58 37.1 93 16 141/80 (100) 95 Room Air 05/21/17 20:30 97 166/77 (106) 05/21/17 19:28 37.0 95 16 136/81 (99) 94 Room Air 05/21/17 19:15 Room Air 05/21/17 17:40 37.1 99 18 132/74 (93) 94 Room Air 05/21/17 13:01 92 18 136/78 (97) 05/21/17 12:08 82 18 123/73 (90) 91 Room Air 05/21/17 10:54 83 16 123/74 (90) 94 05/21/17 10:31 84 16 123/76 (92) 90 Room Air 05/21/17 10:24 92 Room Air 05/21/17 09:45 37.2 86 16 121/75 (90) 92 Room Air 05/21/17 09:45 92 Room Air 05/21/17 09:35 36.3 83 16 122/70 92 Room Air 05/21/17 09:25 82 16 122/72 92 Room Air 05/21/17 09:15 83 18 116/76 98 Oxymask 10 05/21/17 09:05 81 15 123/73 97 Oxymask 10 05/21/17 08:58 36.3 82 22 102/65 96 Oxymask 10 Laboratory Results 24 Hours: Test 05/21/17 13:40 05/22/17 05:13 White Blood Count 8.91 K/uL 15.39 K/uL Red Blood Count 4.60 M/uL 4.40 M/uL Hemoglobin 13.8 g/dL 13.2 g/dL Hematocrit 40.0 % 38.0 % Mean Corpuscular Volume 87.0 fL 86.4 fL Mean Corpuscular Hemoglobin 30.0 pg 30.0 pg Mean Corpuscular Hemoglobin Concent 34.5 g/dl 34.7 g/dl Platelet Count 336 K/uL 310 K/uL Mean Platelet Volume 9.7 fL 9.3 fL Neutrophils (%) (Auto) 90.6 % 78.7 % Lymphocytes (%) (Auto) 7.3 % 13.0 % Monocytes (%) (Auto) 1.7 % 7.8 % Eosinophils (%) (Auto) 0.0 % 0.1 % Basophils (%) (Auto) 0.2 % 0.1 % Neutrophils # (Auto) 8.07 K/uL 12.13 K/uL Lymphocytes # (Auto) 0.65 K/uL 2.00 K/uL Monocytes # (Auto) 0.15 K/uL 1.20 K/uL Eosinophils # (Auto) 0.00 K/uL 0.01 K/uL Basophils # (Auto) 0.02 K/uL 0.01 K/uL Assessment & Plan Assessment: POD 1 - S/P right great toe partial amputation, flexor tenotomies of toes 2-[address] Chow Plan: Ice/elevate right foot to relieve pain/swelling Post op shoe when out of bed right foot for ambulation Use walker or crutches to assist with ambulation. Regular diet as ordered Appreciate medicine assistance for diabetic management Continue IV zosyn, cultures pending. - ID consult pending May be out of bed as tolerated, weight bear as tolerated RLE with post op shoe on. Plan for discharge to home once antibiotic determined based on culture results. All questions answered, will discuss findings with Dr. Chow Will recheck in AM. Call with questions.
[2017-05-22] MEDS: PIPERACILL/TAZOBAC IV 3.375 GM in DEXTROSE 5% 100ML 100 ML IV SCH (08:46)
[2017-05-22] MEDS: LISINOPRIL 5 MG TAB PO SCH (08:48)
[2017-05-22] MEDS: GABAPENTIN 100 MG CAP PO SCH ×3 (08:49→20:59)
[2017-05-22] MEDS: ASPIRIN 81 MG ECTAB PO SCH (08:49)
[2017-05-22] MEDS: VERAPAMIL HCL 120 MG TABCR PO SCH (08:49)
[2017-05-22] MEDS: PANTOprazole SOD 40 MG TAB PO SCH (08:50)
[2017-05-22] MEDS: METOPROLOL TARTRATE 50 MG TAB PO SCH ×2 (08:50→21:00)
[2017-05-22] MEDS: LACTOBACILLUS ACIDOPHILUS (FLORANEX) TAB PO SCH ×3 (08:51→17:48)
[2017-05-22] MEDS: DOCUSATE SODIUM 100 MG CAP PO SCH ×2 (08:51→20:59)
[2017-05-22] MEDS: MULTIVITAMIN TAB PO SCH (08:51)
[2017-05-22] MEDS: INSULIN ASPART 100 UNITS/ML 3 ML PEN SC SCH ×4 (08:54→21:12)
[2017-05-22] MEDS: POTASSIUM CHLORIDE INJ 10 MEQ in SODIUM CHLORIDE 0.9% 1000ML 1,000 ML IV SCH ×2 (08:56→17:50)
[2017-05-22] MEDS ORDERED: BuPROPion XL 300 MG TABCR PO SCH (09:00)
[2017-05-22] MEDS ORDERED: COUGH DROP (SUGAR FREE) LOZ 24 LOZ/1 BOX LOZ ONE (09:02)
[2017-05-22] MEDS ORDERED: COUGH DROP (SUGAR FREE) LOZ 24 LOZ/1 BOX LOZ PRN (09:15)
--- NOTE | 2017-05-22 10:41 | Progress Note ---
Progress Note Date of Service May 22, 2017. Progress Note Patient resting comfortably in bed. Afebrile vital signs stable. Labs are noted. White blood cell count likely elevated secondary to stress. Hemoglobin A1c is 11. Cultures are pending. Dressing is clean dry. Plan is to continue elevation. Dressing will be changed tomorrow. Antibiotics will be tapered upon culture results and infectious disease recommendations. Importance of tight glucose control is discussed with patient. He will follow-up with me next week. Elevation. Patient is aware that I will be out beginning tomorrow. 1 of my colleagues will assume his care if he remains an inpatient.
--- NOTE | 2017-05-22 11:13 | Discharge Instructions ---
Discharge Instructions Date of Service May 22, 2017. Admission Reason for Admission: Right Big Toe, Claw Toes 2-5 Diabetic Foot Ulcer Discharge Discharge Diagnosis / Problem: Diabetic foot ulcer right great toe, osteomyelitis right great toe Discharge Goals Goal(s): Decrease discomfort, Improve function, Increase independence Activity Recommendations Activity Limitations: per Instructions/Follow-up section Weightbearing Status: Right weightbearing (as tolerated with post op shoe ) . Instructions / Follow-Up Instructions / Follow-Up DIET: * Resume previous diet. MEDICATIONS: * Please take your prescriptions as instructed at your pre-op appointment and/ or see medication discharge instructions listed above. * If concerns develop, call your physician's office at . SPECIAL CARE INSTRUCTIONS: * Ice to right foot as needed for pain and swelling * Elevate right lower extremity above heart as needed for pain and swelling. * Keep dressing clean, dry, intact. He may change dressings daily and as needed. * Wear postop shoe right foot when out of bed. * Use crutches or walker to assist with ambulation. * You may weight-bear as tolerated right lower extremity. * Keep toes and incisions covered with clean dry dressings. Starting on Saturday, you may shower. Okay to let the water and soap run over her right foot. Do not soak or submerge her right foot. Pat incisions dry and redress with dressings appropriately. * Your surgical extremity may be discolored due to prepping agents used on the skin. A bluish-green tint is a normal variant and should not cause alarm. Call your doctor at [phone] if: * Temperature above 101 degrees * Pain not relieved by pain medicine ordered * There is increased drainage or redness from any incision * You have any unanswered questions, problems or concerns. FOLLOW UP VISIT: * If not already scheduled, please call the office at to schedule a follow-up appointment. * You have a follow-up appointment scheduled with Dr. Chow on 05/28/2017 at 8:00 a.m. * Follow up with Dr. Vincent from Infectious Disease. Please call [phone] to schedule appointment. * Follow up with Dr. Johnson your family doctor to continue your new diabetic regimen. Please call [phone] to schedule appointment. Current Hospital Diet Patient's current hospital diet: Diabetes Type 2 Diet Discharge Diet Recommended Diet: Regular Diet, Diabetes Type 2 Diet Procedures Procedures Performed: Irrigation and sharp excisional debridement. Partial amputation through the proximal phalanx of the right big toe. Percutaneous flexor digitorum longus tendon release of toes 2 and 3 and 4. Pending Studies Studies pending at discharge: no Laboratory Results Hemoglobin A1c Test 05/21/17 13:40 Range/Units Estimated Average Glucose 272 mg/dl Hemoglobin A1c 11.1 H 4.5-5.6 % Medical Emergencies . Who to Call and When: Medical Emergencies: If at any time you feel your situation is an emergency, please call 911 immediately. . Non-Emergent Contact Non-Emergency issues call your: Surgeon Call Non-Emergent contact if: temperature is above 101, your pain is not controlled, your pain is worsening, your pain is concerning you, wound has increased drainage, wound has increased redness, wound has increased pain, you have any medication questions . "Provider Documentation" section prepared by Shelby Lopez. . VTE Core Measure Inpt VTE Proph given/why not?: Treatment not indicated [place] Drug Monitoring Program Search Results: patient reviewed within database, no issues identified
[2017-05-22] MEDS: OXYCODONE HCL IR 5 MG TAB (IMMEDIATE RELEASE) PO PRN (13:49)
--- NOTE | 2017-05-22 14:04 | Infectious Disease Progress Nt ---
Progress Note Date of Service May 22, 2017. Subjective Pt evaluation today including: conversation w/ patient, physical exam, chart review, lab review, review of studies, conversation w/ design sales consultant, review of inpatient medication list Patient offers no new complaints today. Remains afebrile. Cultures growing coagulase negative Staph. All Other Systems: Reviewed and Negative Medications Current Inpatient Medications Medications (Trade) Dose Ordered Sig/Silvano Route Start Time Stop Time Status Last Admin Dose Admin Acetaminophen (Tylenol Tab) 650 mg Q6H PRN PO 05/21/17 09:00 06/20/17 08:59 Metoclopramide HCl (Reglan Inj) 10 mg Q6H PRN IV 05/21/17 09:00 06/20/17 08:59 Ondansetron HCl (Zofran Inj) 4 mg Q6H PRN IV 05/21/17 09:00 06/20/17 08:59 Pantoprazole Sodium (Protonix Tab) 40 mg QAM PO 05/22/17 09:00 05/25/17 10:00 05/22/17 08:50 40 MG Potassium Chloride 10 meq/ Sodium Chloride 1,005 ml @ 100 mls/hr Q10H3M IV 05/21/17 12:33 06/20/17 12:32 05/22/17 08:56 100 MLS/HR Oxycodone HCl (Roxicodone Immediate Rel Tab) 1-2 TABS FOR PAIN 1 TABLET ... Q4H PRN PO 05/21/17 09:00 06/04/17 08:59 05/22/17 13:49 5 MG Morphine Sulfate (MoRPHine SULFATE INJ) 2 mg Q2H PRN IV 05/21/17 09:00 06/04/17 08:59 Docusate Sodium (coLACE CAP) 100 mg BID PO 05/21/17 21:00 06/20/17 20:59 05/22/17 08:51 100 MG Multivitamins (Multivitamin Tab) 1 tab QAM PO 05/22/17 09:00 06/21/17 08:59 05/22/17 08:51 1 TAB Piperacillin Sod/ Tazobactam Sod 3.375 gm/Dextrose 115 ml @ 28.75 mls/ hr Q8H IV 05/21/17 16:00 07/02/17 15:59 05/22/17 08:46 28.75 MLS/HR Miscellaneous Information (Consult) 1 ea UD PRN N/A 05/21/17 09:00 06/20/17 08:59 Morphine Sulfate (MoRPHine SULFATE INJ) 4 mg Q2H PRN IV 05/21/17 12:45 06/04/17 12:44 Metoprolol Tartrate (Lopressor Tab) 25 mg BID PO 05/21/17 13:14 06/20/17 13:13 05/22/17 08:50 25 MG Lactobacillus Acidophilus (Floranex Tab) 4 tab TIDM PO 05/21/17 17:45 06/20/17 17:44 05/22/17 12:37 4 TAB Aspirin (Ecotrin Tab) 81 mg QAM PO 05/22/17 09:00 06/21/17 08:59 05/22/17 08:49 81 MG Bupropion HCl (Wellbutrin-Xl Tab) 300 mg QAM PO 05/22/17 09:00 06/21/17 08:59 05/22/17 08:49 300 MG EZETIMIBE (Zetia Tab) 10 mg QPM PO 05/21/17 21:00 06/20/17 20:59 05/21/17 20:45 10 MG Gabapentin (Neurontin Cap) 100 mg TID PO 05/21/17 21:00 06/20/17 20:59 05/22/17 13:49 100 MG Lisinopril (Zestril Tab) 5 mg QAM PO 05/22/17 09:00 06/21/17 08:59 05/22/17 08:48 5 MG Verapamil HCl (Calan-Sr Tab) 120 mg QAM PO 05/22/17 09:00 06/21/17 08:59 05/22/17 08:49 120 MG Insulin Aspart (novoLOG ASPART) SLIDING SCALE If C... ACHS SC 05/21/17 17:15 06/20/17 17:14 05/22/17 12:39 5 UNITS Glucose (Glucose 40% Gel) 15-30 GRAMS 15 GRAMS... UD PRN PO 05/21/17 17:15 06/20/17 17:14 Glucose (Glucose Chew Tab) 4-8 Tablets 4 Tabl... UD PRN PO 05/21/17 17:15 06/20/17 17:14 Dextrose (Dextrose 50% 50ML Syringe) 25-50ML OF 50% DW IV FOR... UD PRN IV 05/21/17 17:15 06/20/17 17:14 Glucagon (Glucagon Inj) 1 mg UD PRN SQ 05/21/17 17:15 06/20/17 17:14 Insulin Glargine (Lantus Solostar Pen) 45 units QPM SC 05/21/17 21:00 06/20/17 20:59 05/21/17 20:55 45 UNITS Menthol (Nice [place]) 1 [place] PRN PRN [place] 05/22/17 09:15 06/21/17 09:14 Objective Vital Signs Date Time Temp Pulse Resp B/P (MAP) Pulse Ox O2 Delivery O2 Flow Rate FiO2 05/22/17 11:47 36.6 82 20 142/80 (100) 96 Room Air 05/22/17 10:29 96 Room Air 05/22/17 07:55 36.8 96 20 152/80 (104) 96 Room Air 05/22/17 07:20 Room Air 05/22/17 03:41 37.0 96 16 142/74 (96) 93 Room Air 05/21/17 22:58 37.1 93 16 141/80 (100) 95 Room Air 05/21/17 20:30 97 166/77 (106) 05/21/17 19:28 37.0 95 16 136/81 (99) 94 Room Air 05/21/17 19:15 Room Air 05/21/17 17:40 37.1 99 18 132/74 (93) 94 Room Air Physical Exam General Appearance: WD/WN, no apparent distress Eyes: normal inspection, EOMI, sclerae normal ENT: normal ENT inspection, pharynx normal Neck: supple, no adenopathy, thyroid normal, trachea midline Respiratory/Chest: chest non-tender, lungs clear, normal breath sounds, no respiratory distress Cardiovascular: regular rate, rhythm, no gallop, no murmur Abdomen: normal bowel sounds, non tender, soft, no organomegaly Extremities: non-tender, no calf tenderness, normal capillary refill Neurologic/Psychiatric: alert, oriented x 3 Skin: normal color, no rash Lymphatic: no adenopathy Laboratory Results RUN DATE: 05/22/17 [facility] LAB PAGE 1 RUN TIME: 1341 Specimen Inquiry PATIENT: [place] LOMBARDI LOC: [facility] U # : [id number] AGE/SX: 51/M ROOM: [facility] REG : 05/21/[address]: Luis Chow M.D. : 1965 BED: 1 DIS : STATUS: ADM IN TLOC: SPEC #: [id number] BERE: 05/21/17 STATUS: RES REQ #: [id number] RECD: 05/21/[address]: Luis Chow M.D. SOURCE: DRAIN-DEEP ENTR: 05/21/[address] [facility] [address]: Kaushal Johnson MD SPDESC: TOE R1 ORDERED: AER/BETO CULTSMR Procedure Result Verified Site GRAM STAIN Final 05/21/17-2291 RESULT FEW WBCs SEEN RARE GRAM POSITIVE BACILLI OR AER/BETO CULT Preliminary 05/22/17-1341 Organism 1 COAG NEG STAPHYLOCOCCUS QUANITY FEW SENS NO SENSITIVITY TO FOLLOW +MIXWOUND PLUS LOW COUNTS OF PROBABLE SKIN ANGE Results Past 24 Hours Test 05/21/17 17:23 05/21/17 20:41 05/22/17 05:13 05/22/17 07:55 Range/Units Bedside Glucose 240 277 149 70-99 mg/dl White Blood Count 15.39 4.8-10.8 K/uL Red Blood Count 4.40 4.7-6.1 M/uL Hemoglobin 13.2 14.0-18.0 g/dL Hematocrit 38.0 42-52 % Mean Corpuscular Volume 86.4 80-100 fL Mean Corpuscular Hemoglobin 30.0 25-34 pg Mean Corpuscular Hemoglobin Concent 34.7 32-36 g/dl Platelet Count 310 130-400 K/uL Mean Platelet Volume 9.3 7.4-10.4 fL Neutrophils (%) (Auto) 78.7 % Lymphocytes (%) (Auto) 13.0 % Monocytes (%) (Auto) 7.8 % Eosinophils (%) (Auto) 0.1 % Basophils (%) (Auto) 0.1 % Neutrophils # (Auto) 12.13 1.4-6.5 K/uL Lymphocytes # (Auto) 2.00 1.2-3.4 K/uL Monocytes # (Auto) 1.20 0.11-0.59 K/uL Eosinophils # (Auto) 0.01 0-0.5 K/uL Basophils # (Auto) 0.01 0-0.2 K/uL RDW Standard Deviation 40.6 36.4-46.3 fL RDW Coefficient of Variation 12.8 11.5-14.5 % Immature Granulocyte % (Auto) 0.3 % Immature Granulocyte # (Auto) 0.04 0.00-0.02 K/uL Sodium Level 136 136-145 mmol/L Potassium Level 3.9 3.5-5.1 mmol/L Chloride Level 104 98-107 mmol/L Carbon Dioxide Level 25 21-32 mmol/L Anion Gap 7.0 3-11 mmol/L Blood Urea Nitrogen 15 7-18 mg/dl Creatinine 0.80 0.60-1.40 mg/dl Est Creatinine Clear Calc Drug Dose 127.9 ml/min Estimated GFR () 118.2 Estimated GFR (Non- 102.0 BUN/Creatinine Ratio 18.9 10-20 Random Glucose 173 70-99 mg/dl Calcium Level 8.4 8.5-10.1 mg/dl Magnesium Level 2.0 1.8-2.4 mg/dl Total Bilirubin 0.5 0.2-1 mg/dl Aspartate Amino Transf (AST/SGOT) 18 15-37 U/L Alanine Aminotransferase (ALT/SGPT) 35 12-78 U/L Alkaline Phosphatase 65 45-117 U/L Total Protein 6.3 6.4-8.2 gm/dl Albumin 2.6 3.4-5.0 gm/dl Globulin 3.7 2.5-4.0 gm/dl Albumin/Globulin Ratio 0.7 0.9-2 Hepatitis C Antibody Screen NEG NEG Test 05/22/17 11:56 Range/Units Bedside Glucose 206 70-99 mg/dl Assessment and Plan Right great toe osteomyelitis and diabetic male now status post amputation, with previous cultures positive for methicillin sensitive Staph aureus, but now with operative cultures growing coagulase-negative Staph. No sensitivity results available. Would recommend use of oral Zyvox 600 mg b.i.d., likely in the range of 2 weeks.
--- NOTE | 2017-05-22 14:16 | Progress Note ---
Subjective Date of Service: May 22, 2017. Subjective Pt evaluation today including: conversation w/ patient, physical exam, chart review, lab review, review of studies, conversation w/ digital media sales consultant, review of inpatient medication list Voiding: no voiding problems Walking, pain well controlled, no complaint, blood glucose around 150, patient is happy about this, denies fever and chills Problem List Medical Problems: (1) Cellulitis of foot Status: Acute (2) Low back pain with sciatica Status: Acute Review of Systems Constitutional: No fever, No chills, No sweats, No weight loss, No weakness, No fatigue, No problem reported Eyes: No worsening of vision, No eye pain, No redness, No discharge, No diplopia ENT: No hearing loss, No unusual epistaxis, No nasal symptoms, No sore throat, No tinnitus, No dental problems, No trouble swallowing Respiratory: No cough, No sputum, No wheezing, No shortness of breath, No dyspnea on exertion, No dyspnea at rest, No hemoptysis Cardiac: No chest pain, No orthopnea, No PND, No edema, No claudication, No palpitations Abdomen: No pain, No nausea, No vomiting, No diarrhea, No constipation Musculoskeletal: No joint pain, No muscle pain, No swelling, No calf pain Male : No dysuria, No urinary frequency, No incontinence, No nocturia more than once/night, No slowing stream, No hematuria Neurologic: No memory loss, No paralysis, No weakness, No numbness/tingling, No vertigo, No balance problems Psychiatric: No depression symptoms, No anhedonism, No anxiety, No insomnia, No substance abuse Heme: No abnormal bleeding/bruising, No clotting problems, No swollen lymph nodes, No night sweats Endo: No fatigue, No excessive thirst, No excessive urination Skin: + problem reported (Right toe in dress), No rash, No itch, No new/ changing skin lesions, No color change, No bleeding Objective Vital Signs Date Time Temp Pulse Resp B/P (MAP) Pulse Ox O2 Delivery O2 Flow Rate FiO2 05/22/17 11:47 36.6 82 20 142/80 (100) 96 Room Air 05/22/17 10:29 96 Room Air 05/22/17 07:55 36.8 96 20 152/80 (104) 96 Room Air 05/22/17 07:20 Room Air 05/22/17 03:41 37.0 96 16 142/74 (96) 93 Room Air 05/21/17 22:58 37.1 93 16 141/80 (100) 95 Room Air 05/21/17 20:30 97 166/77 (106) 05/21/17 19:28 37.0 95 16 136/81 (99) 94 Room Air 05/21/17 19:15 Room Air 05/21/17 17:40 37.1 99 18 132/74 (93) 94 Room Air Physical Exam General Appearance: WD/WN, no apparent distress Eyes: normal inspection, PERRL, EOMI, sclerae normal ENT: normal ENT inspection, hearing grossly normal, pharynx normal Neck: supple, no adenopathy, thyroid normal, no JVD, no carotid bruits, trachea midline Respiratory/Chest: chest non-tender, lungs clear, normal breath sounds, no respiratory distress, no accessory muscle use, + decreased breath sounds Cardiovascular: regular rate, rhythm, no edema, no gallop, no JVD, no murmur Abdomen: normal bowel sounds, non tender, soft, no organomegaly, no pulsatile mass Extremities: normal range of motion, non-tender, normal inspection, no pedal edema, no calf tenderness, normal capillary refill, pelvis stable Neurologic/Psychiatric: religious studies professor II-XII nml as tested, no motor/sensory deficits, alert, normal mood/affect, oriented x 3 Skin: normal color, warm/dry, no rash, + pertinent finding (Right toe in dress) Lymphatic: no adenopathy Laboratory Results Last 24 Hours Test 05/21/17 17:23 05/21/17 20:41 05/22/17 05:13 05/22/17 07:55 Bedside Glucose 240 mg/dl 277 mg/dl 149 mg/dl White Blood Count 15.39 K/uL Red Blood Count 4.40 M/uL Hemoglobin 13.2 g/dL Hematocrit 38.0 % Mean Corpuscular Volume 86.4 fL Mean Corpuscular Hemoglobin 30.0 pg Mean Corpuscular Hemoglobin Concent 34.7 g/dl Platelet Count 310 K/uL Mean Platelet Volume 9.3 fL Neutrophils (%) (Auto) 78.7 % Lymphocytes (%) (Auto) 13.0 % Monocytes (%) (Auto) 7.8 % Eosinophils (%) (Auto) 0.1 % Basophils (%) (Auto) 0.1 % Neutrophils # (Auto) 12.13 K/uL Lymphocytes # (Auto) 2.00 K/uL Monocytes # (Auto) 1.20 K/uL Eosinophils # (Auto) 0.01 K/uL Basophils # (Auto) 0.01 K/uL RDW Standard Deviation 40.6 fL RDW Coefficient of Variation 12.8 % Immature Granulocyte % (Auto) 0.3 % Immature Granulocyte # (Auto) 0.04 K/uL Sodium Level 136 mmol/L Potassium Level 3.9 mmol/L Chloride Level 104 mmol/L Carbon Dioxide Level 25 mmol/L Anion Gap 7.0 mmol/L Blood Urea Nitrogen 15 mg/dl Creatinine 0.80 mg/dl Est Creatinine Clear Calc Drug Dose 127.9 ml/min Estimated GFR () 118.2 Estimated GFR (Non- 102.0 BUN/Creatinine Ratio 18.9 Random Glucose 173 mg/dl Calcium Level 8.4 mg/dl Magnesium Level 2.0 mg/dl Total Bilirubin 0.5 mg/dl Aspartate Amino Transf (AST/SGOT) 18 U/L Alanine Aminotransferase (ALT/SGPT) 35 U/L Alkaline Phosphatase 65 U/L Total Protein 6.3 gm/dl Albumin 2.6 gm/dl Globulin 3.7 gm/dl Albumin/Globulin Ratio 0.7 Hepatitis C Antibody Screen NEG Test 05/22/17 11:56 Bedside Glucose 206 mg/dl Assessment and Plan 51-year-old male admitted to Dr. Chow's service l for an elective I&D/ debridement of right lower extremity. Status post incision, debridement, partial amputation of proximal phalanx of right big toe and percutaneous flexor digitorum longus tendon release of toes 2 and 3 and 4, postoperative day #1 , weightbearing, PT OT, DVT prophylaxis, and discharge plan , and pain control will be per primary team Right foot infected diabetic ulcer plus osteomyelitis proximal phalanx of right big toe status post debridement/partial proximal phalanx amputation/tendon release: Continue current antibiotics, agree with Dr. Vincent's input, recommend a follow- up culture and sensitivity, Uncontrolled diabetic with A1c at 11 , was on insulin Lantus and checking One Touch 4 times a day,, in service educator discussed with me and patient, possible start insulin sliding scale, continue home regimen of glargine, educated patient about blood glucose control for the healing of wounds and avoid of complications Hypertension Peripheral neuropathy Mild obesity The above condition are stable, continue current medication Continued [facility] stay due to: multiple IV medications needed Discharge planning: home
[2017-05-22] MEDS: LINEZOLID 600 MG TAB PO SCH (20:59)
[2017-05-22] MEDS: EZETIMIBE 10MG TAB PO SCH (21:00)
[2017-05-22] MEDS: INSULIN GLARGINE SOLOSTAR 100 UNITS/ML 3 ML PEN SC SCH (21:13)
[2017-05-23] MEDS: POTASSIUM CHLORIDE INJ 10 MEQ in SODIUM CHLORIDE 0.9% 1000ML 1,000 ML IV SCH (03:36)
[2017-05-23] MEDS: OXYCODONE HCL IR 5 MG TAB (IMMEDIATE RELEASE) PO PRN (03:39)
[2017-05-23 05:52] LABS: HEMATOCRIT 39.1 % (42-52); HEMOGLOBIN 13.4 g/dL (14.0-18.0); MEAN CELL VOLUME 86.7 fL (80-100); MEAN CORPUSCULAR HEMOGLOBIN 29.7 pg (25-34); MEAN CORPUSCULAR HGB CONC 34.3 g/dl (32-36); MEAN PLATELET VOLUME 9.5 fL (7.4-10.4); PLATELET COUNT 306 K/uL (130-400); RED CELL DISTRIBUTION WIDTH CV 13.1 % (11.5-14.5); RED CELL DISTRIBUTION WIDTH SD 41.7 fL (36.4-46.3); WHITE BLOOD COUNT 9.81 K/uL (4.8-10.8)
[2017-05-23 07:15] VITALS: BP 152/87; PULSE 74; TEMP 36.6; O2SAT 94
[2017-05-23] MEDS ORDERED: LINE1TAB2 PO (08:20)
[2017-05-23] MEDS ORDERED: CLC100 PO (08:20)
[2017-05-23] MEDS ORDERED: LCTX PO (08:20)
[2017-05-23] MEDS ORDERED: MULT-890 PO (08:20)
[2017-05-23] MEDS ORDERED: OXYC-57 PO (08:21)
--- NOTE | 2017-05-23 08:25 | Orthopedic Progress Note ---
Orthopedic Progress Note Date of Service May 23, 2017. Subjective Post OP Day: 2 Reports: feeling well, pain controlled w PO medications, Denies: complaints, chest pain, SOB, nausea / vomiting, light headedness, calf pain Objective calves soft nontender, capillary refill less than 2 sec., incision C/D/I, A&O x3 , toes mobile able to feel with light touch, excellent cap. refill. Distal pulses 1+, Able to move toes. Dressings removed today, redressed. mild erythema of right great toe amputation site. Date Time Temp Pulse Resp B/P (MAP) Pulse Ox O2 Delivery O2 Flow Rate FiO2 05/23/17 07:15 36.6 74 16 152/87 (108) 94 Room Air 05/22/17 23:25 37.0 78 16 144/75 (98) 94 Room Air 05/22/17 20:58 83 159/83 (108) 05/22/17 19:55 Room Air 05/22/17 15:18 36.7 83 18 144/81 (102) 95 Room Air 05/22/17 11:47 36.6 82 20 142/80 (100) 96 Room Air 05/22/17 10:29 96 Room Air Laboratory Results 24 Hours: Test 05/23/17 05:32 Hematocrit 39.1 % Hemoglobin 13.4 g/dL Assessment & Plan Assessment: POD 2 - S/P right great toe partial amputation, flexor tenotomies of toes 2-[address] Chow Plan: Ice/elevate right foot to relieve pain/swelling Post op shoe when out of bed right foot for ambulation Use walker or crutches to assist with ambulation. Regular diet as ordered Appreciate medicine assistance for diabetic management Zyvox started yesterday - will discharge on 600mg BID May be out of bed as tolerated, weight bear as tolerated RLE with post op shoe on. Plan for discharge to home today. All questions answered, will discuss findings with Dr. Chow Follow up with Dr. Chow, Infectious Disease and Dr. Johnson as outpatient. Discharge Planning Discharge Planning: home with home health Pain Management: Percocet
[2017-05-23] MEDS: LACTOBACILLUS ACIDOPHILUS (FLORANEX) TAB PO SCH ×2 (09:08→12:40)
[2017-05-23] MEDS: DOCUSATE SODIUM 100 MG CAP PO SCH (09:09)
[2017-05-23] MEDS: MULTIVITAMIN TAB PO SCH (09:09)
[2017-05-23] MEDS: VERAPAMIL HCL 120 MG TABCR PO SCH (09:10)
[2017-05-23] MEDS: PANTOprazole SOD 40 MG TAB PO SCH (09:10)
[2017-05-23] MEDS: LINEZOLID 600 MG TAB PO SCH (09:11)
[2017-05-23] MEDS: GABAPENTIN 100 MG CAP PO SCH ×2 (09:11→12:43)
[2017-05-23] MEDS: METOPROLOL TARTRATE 50 MG TAB PO SCH (09:12)
[2017-05-23] MEDS: ASPIRIN 81 MG ECTAB PO SCH (09:13)
[2017-05-23] MEDS: LISINOPRIL 5 MG TAB PO SCH (09:13)
[2017-05-23] MEDS: INSULIN ASPART 100 UNITS/ML 3 ML PEN SC SCH ×2 (09:17→12:42)
[2017-05-23 10:00] VITALS: Ht 177.8 cm; Wt 102.3 kg
[2017-05-23] MEDS ORDERED: METF1000 PO (10:30)
[2017-05-23] MEDS ORDERED: NVLGI7030 SC (10:30)
[2017-05-23] MEDS ORDERED: NVLGI/PEN SQ (10:36)
--- NOTE | 2017-05-23 10:37 | Discharge Instructions ---
Discharge Instructions Date of Service May 23, 2017. Admission Reason for Admission: Right Big Toe, Claw Toes 2-5 Diabetic Foot Ulcer Discharge Discharge Diagnosis / Problem: uncontrolled DM , anxiety Discharge Goals Goal(s): Decrease discomfort, Improve function, Increase independence, Improve disease control, Improve nutritional status, Learn about illness, Diagnostic testing, Therapeutic intervention, Prevent Disease Progression, Specific goals Activity Recommendations Activity Limitations: per Instructions/Follow-up section . Instructions / Follow-Up Instructions / Follow-Up you have toe infection Status post incision, debridement, for this detail you need to follow up instructions from your surgeon you have uncontrolled diabetic with A1c at 11 , you can continue insulin Lantus , I changed Janumet to Metformin, added Novolog 5 unit every meal, and Insulin sliding scale, Insulin sliding scale instructions see below: Blood glucose 150-175, 1 unit Blood glucose 176-200, 2 unit Blood glucose 201 to 225, 3 unit Glucose 226 to 250 4 unit Blood glucose from 251 to 275 , 5 unit Blood glucose from 276 to 300 6 unit Blood glucose from 301 to 325, 7 unit Blood glucose from 326 to 350, 8 unit Blood glucose from 351 to 375 , 9 units Blood glucose from 376 to 400 , 10 units Call PCP if blood glucose > 400 you have anxiety was on Wellbutrin, because you are now on Zyvox, I recommend to stop Wellbutrin because of drug drug interactions You need to be seen by your family doctor in next Saturday or Saturday, to follow- up all of your medical conditions include diabetic and to find the options of medication instead of Wellbutrin for your anxiety Call PCP if any questions Current Hospital Diet Patient's current hospital diet: Diabetes Type 2 Diet Discharge Diet Recommended Diet: Diabetes Type 2 Diet Procedures Procedures Performed: Irrigation and sharp excisional debridement. Partial amputation through the proximal phalanx of the right big toe. Percutaneous flexor digitorum longus tendon release of toes 2 and 3 and 4. Pending Studies Studies pending at discharge: no Laboratory Results Hemoglobin A1c Test 05/21/17 13:40 Range/Units Estimated Average Glucose 272 mg/dl Hemoglobin A1c 11.1 H 4.5-5.6 % Medical Emergencies . Who to Call and When: Medical Emergencies: If at any time you feel your situation is an emergency, please call 911 immediately. . Non-Emergent Contact Non-Emergency issues call your: Primary Care Provider . . "Provider Documentation" section prepared by Lorenzo Yo. .
[2017-05-23 12:11] VITALS: BP 152/87; PULSE 74; TEMP 36.6; O2SAT 94
--- NOTE | 2017-05-23 14:50 | Discharge Summary ---
Discharge Summary Date of Service May 23, 2017. Discharge Summary Admission Date: May 21, 2017 at 09:11 Discharge Date: May 23, 2017 Discharge Disposition: Home with services Principal Diagnosis: Diabetic foot ulcer right great toe; osteomyelitis right distal phalanx Secondary Diagnoses/Problems: Hypertension, hyperlipidemia, diabetes type 2 Procedures: Status post irrigation, debridement, partial amputation right great toe, percutaneous flexor tenotomies of toes [address] Chow on May 21, 2017 Consultations: Infectious disease, hospitalists Pending Studies/Follow-Up: Follow-up is scheduled with Dr. Chow on May 28, 2017. Recommend follow- up with Dr. Vincent please call his office to schedule appointment. Follow up with your family physician, Dr. Johnson for continued diabetic management/control. Medication Reconciliation New Medications: Insulin Aspart (Novolog Flexpen) 100 Units/Ml Inj 5 UNITS SQ TIDM for 30 Days Metformin Hcl (Glucophage) 1,000 Mg Tab 1 TAB PO BID for 30 Days, #60 TAB 5 Refills Oxycodone/Acetaminophen 5MG/325MG (Percocet 5MG/325MG) Tab 1-2 TABLETS PO Q4H PRN for Pain, #30 TAB Docusate Sodium (Docusate Sodium) 100 Mg Cap 100 MG PO BID for 14 Days, #28 CAP Lactobacillus Acidophilus (Floranex) 1 Tab Tab 4 TAB PO TIDM for 30 Days, TAB Linezolid (Linezolid) 600 Mg Tab 600 MG PO BID for 14 Days, #28 TAB 0 Refills Multiple Vitamin (Daily-Alphonse) 1 Tab Tab 1 TAB PO QAM for 30 Days, #30 TAB Continued Medications: Aspirin (Aspirin Ec) 81 Mg Tab 81 MG PO QAM Ezetimibe (Zetia) 10 Mg Tab 10 MG PO QPM, TAB Gabapentin (Gabapentin) 100 Mg Cap 100 MG PO TID Insulin Glargine (Lantus Solostar) 100 Unit/Ml Inj 45 UNITS SC QPM, PEN Lisinopril (Zestril) 10 Mg Tab 5 MG PO QAM 1/2 TABLET DOSE Metoprolol Tartrate (Lopressor) (Lopressor) 100 Mg Tab 100 MG PO BID Verapamil Hcl (Verapamil Hcl Er) 120 Mg Cap 120 MG PO QAM Discontinued Medications: Bupropion HCl (Bupropion HCl Xl) 300 Mg Tabcr 300 MG PO QAM Ciprofloxacin Tab (Cipro) 250 Mg Tab 500 MG PO BID, TAB Glimepiride (Glimepiride) 4 Mg Tab 4 MG PO BID Sitagliptin-Metformin Hcl (Janumet) 1 Tab Tab 1 TAB PO BID [Augmentin] () 875 MG PO BID Admission Information HPI (per Admitting provider): The patient is a 51-year-old male who presented to our office on Saturday for evaluation of her right great toe Nonhealing ulcer And probable osteomyelitis of his right great toe. He was sent to Dr. Chow by the wound clinic. He states that proximally a month prior to today he got some new shoes for work. Typically he does get his shoes from the diabetic foot clinic but this time he did not. He states that he did develop a blister on his right great toe that seemed superficial. He went to his family doctor, Dr. Johnson, and was referred to the wound clinic for treatment of the blister. He states that he was placed on antibiotics and was advised on using dressings to cover the blister and keeping it clean. He states that he did this and feels that wrapping his toe caused further breakdown in the skin of his right great toe. After approximately 10 days from the initial blister he states his antibiotics were discontinued. During that time, on no antibiotics he felt that his toe became more red and swollen. He also developed more breakdown in the skin around his great toe. He returned to the wound clinic weekly in which they debrided the wound and cleaned it and reapply the dressings. Continued to have nonhealing wounds of his right great toe. X-rays were taken back the initial time of the injury and showed no evidence of acute bony abnormality, fracture, or osteomyelitis. A recent MRI was done and shows osteomyelitis of his right distal phalanx. Due to these findings, he is referred to Dr. Chow for surgical evaluation. Currently is on Augmentin and Cipro with no significant improvement in the wounds or his toe overall. Dr. Chow discussed conservative treatment versus surgical intervention. He recommended surgical intervention and the patient agreed to proceed with surgery. He is scheduled for an irrigation, debridement of his right big toe with partial amputation of his right big toe and percutaneous flexor tenotomies of his claw toes [address] Chow on May 21, 2017. This will be performed at the [facility] and he will require a few nights in the hospital after surgery for IV antibiotics and wound management. Physical Exam (per Admitting): General Appearance: WD/WN, no apparent distress Head: normocephalic, atraumatic Eyes: normal inspection, PERRL, EOMI, sclerae normal ENT: normal ENT inspection, hearing grossly normal, TMs normal, pharynx normal Neck: supple, no adenopathy, no carotid bruits, trachea midline Respiratory/Chest: chest non-tender, lungs clear, normal breath sounds, no respiratory distress, no accessory muscle use Cardiovascular: regular rate, rhythm, no edema, no murmur, normal peripheral pulses Abdomen/GI: normal bowel sounds, non tender, soft Extremities/Musculoskelatal: no calf tenderness, normal capillary refill, no pedal edema, + pertinent finding (Exam of his right foot: Posterior tibial pulse is not palpable, dorsalis pedis is 2+. He cannot flex the IP joint of the big toe, but can extend. There are 2 large, full-thickness ulcerations in the subcutaneous tissue one about a centimeter in diameter medially and the other one about 1.5 cm laterally. The lateral wound probes down to the bone. The toe was swollen with a deformed fungal nail. There is some redness, but not much in the way of tenderness. His partially correctable dynamic claw toes. In the standing position, he has significant claw toes with pressure on the tips of his toes. He reports intact sensation and strength is 5/5. The ankle is not swollen with good mobility.) Neurologic/Psych: no motor/sensory deficits, alert, normal mood/affect, normal reflexes, oriented x 3 Skin: normal color, warm/dry, no rash, + pertinent finding Hospital Course Patient is a 51-year-old male who was admitted to the hospital after undergoing an irrigation, debridement, partial amputation of his right great toe, Percutaneous flexor tenotomies of toes [address] Chow on April. He underwent the procedure with general anesthesia. He was given 2 g of IV Ancef for surgical prophylaxis. He tolerated the procedure well without any intraoperative complications. Postoperatively IV Zosyn was ordered for broad-spectrum coverage of his right great toe. He was allowed out of bed, weightbearing as tolerated right lower extremity with the postoperative shoe on the knee assistance of a walker or crutches. He was ordered a regular diabetic type II diet. Infectious disease was consulted for antibiotic management. The hospitalists service was consulted for postoperative medical management and diabetic control. Intraoperative cultures were taken of his right great toe. His cultures grow out coag-negative staph. Dr. Vincent followed patient during his inpatient stay and his IV antibiotics were changed from Zosyn to oral Zyvox 600mg twice a day 2 weeks. His diabetes was well controlled during his inpatient stay. His lab work was stable during his inpatient stay. He tolerated regular diet. He was safe out of bed with the assistance of a walker. His dressings were changed on postoperative day 2 of his right foot. Not develop any postoperative complications. He was stable for discharge to his home with home health services for dressing changes on May 23, 2017. Discharge instructions were provided. Questions were answered today. Case management also followed the patient during his stay and assisted with setting up home nursing for dressing changes. Total time spent on discharge = This includes examination of the patient, discharge planning, medication reconciliation, and communication with other providers. Discharge Instructions Discharge Instructions Date of Service May 22, 2017. Admission Reason for Admission: Right Big Toe, Claw Toes 2-5 Diabetic Foot Ulcer Discharge Discharge Diagnosis / Problem: Diabetic foot ulcer right great toe, osteomyelitis right great toe Discharge Goals Goal(s): Decrease discomfort, Improve function, Increase independence Activity Recommendations Activity Limitations: per Instructions/Follow-up section Weightbearing Status: Right weightbearing (as tolerated with post op shoe ) . Instructions / Follow-Up Instructions / Follow-Up DIET: * Resume previous diet. MEDICATIONS: * Please take your prescriptions as instructed at your pre-op appointment and/ or see medication discharge instructions listed above. * If concerns develop, call your physician's office at . SPECIAL CARE INSTRUCTIONS: * Ice to right foot as needed for pain and swelling * Elevate right lower extremity above heart as needed for pain and swelling. * Keep dressing clean, dry, intact. He may change dressings daily and as needed. * Wear postop shoe right foot when out of bed. * Use crutches or walker to assist with ambulation. * You may weight-bear as tolerated right lower extremity. * Keep toes and incisions covered with clean dry dressings. Starting on Saturday, you may shower. Okay to let the water and soap run over her right foot. Do not soak or submerge her right foot. Pat incisions dry and redress with dressings appropriately. * Your surgical extremity may be discolored due to prepping agents used on the skin. A bluish-green tint is a normal variant and should not cause alarm. Call your doctor at [phone] if: * Temperature above 101 degrees * Pain not relieved by pain medicine ordered * There is increased drainage or redness from any incision * You have any unanswered questions, problems or concerns. FOLLOW UP VISIT: * If not already scheduled, please call the office at to schedule a follow-up appointment. * You have a follow-up appointment scheduled with Dr. Chow on 05/28/2017 at 8:00 a.m. * Follow up with Dr. Vincent from Infectious Disease. Please call [phone] to schedule appointment. * Follow up with Dr. Johnson your family doctor to continue your new diabetic regimen. Please call [phone] to schedule appointment. Current Hospital Diet Patient's current hospital diet: Diabetes Type 2 Diet Discharge Diet Recommended Diet: Regular Diet, Diabetes Type 2 Diet Procedures Procedures Performed: Irrigation and sharp excisional debridement. Partial amputation through the proximal phalanx of the right big toe. Percutaneous flexor digitorum longus tendon release of toes 2 and 3 and 4. Pending Studies Studies pending at discharge: no Laboratory Results Hemoglobin A1c Test 05/21/17 13:40 Range/Units Estimated Average Glucose 272 mg/dl Hemoglobin A1c 11.1 H 4.5-5.6 % Medical Emergencies . Who to Call and When: Medical Emergencies: If at any time you feel your situation is an emergency, please call 911 immediately. . Non-Emergent Contact Non-Emergency issues call your: Surgeon Call Non-Emergent contact if: temperature is above 101, your pain is not controlled, your pain is worsening, your pain is concerning you, wound has increased drainage, wound has increased redness, wound has increased pain, you have any medication questions . "Provider Documentation" section prepared by Shelby Lopez. . VTE Core Measure Inpt VTE Proph given/why not?: Treatment not indicated [place] Drug Monitoring Program Search Results: patient reviewed within database, no issues identified Discharge Instructions Date of Service May 23, 2017. Admission Reason for Admission: Right Big Toe, Claw Toes 2-5 Diabetic Foot Ulcer Discharge Discharge Diagnosis / Problem: uncontrolled DM , anxiety Discharge Goals Goal(s): Decrease discomfort, Improve function, Increase independence, Improve disease control, Improve nutritional status, Learn about illness, Diagnostic testing, Therapeutic intervention, Prevent Disease Progression, Specific goals Activity Recommendations Activity Limitations: per Instructions/Follow-up section . Instructions / Follow-Up Instructions / Follow-Up you have toe infection Status post incision, debridement, for this detail you need to follow up instructions from your surgeon you have uncontrolled diabetic with A1c at 11 , you can continue insulin Lantus , I changed Janumet to Metformin, added Novolog 5 unit every meal, and Insulin sliding scale, Insulin sliding scale instructions see below: Blood glucose 150-175, 1 unit Blood glucose 176-200, 2 unit Blood glucose 201 to 225, 3 unit Glucose 226 to 250 4 unit Blood glucose from 251 to 275 , 5 unit Blood glucose from 276 to 300 6 unit Blood glucose from 301 to 325, 7 unit Blood glucose from 326 to 350, 8 unit Blood glucose from 351 to 375 , 9 units Blood glucose from 376 to 400 , 10 units Call PCP if blood glucose > 400 you have anxiety was on Wellbutrin, because you are now on Zyvox, I recommend to stop Wellbutrin because of drug drug interactions You need to be seen by your family doctor in next Saturday or Saturday, to follow- up all of your medical conditions include diabetic and to find the options of medication instead of Wellbutrin for your anxiety Call PCP if any questions Current Hospital Diet Patient's current hospital diet: Diabetes Type 2 Diet Discharge Diet Recommended Diet: Diabetes Type 2 Diet Procedures Procedures Performed: Irrigation and sharp excisional debridement. Partial amputation through the proximal phalanx of the right big toe. Percutaneous flexor digitorum longus tendon release of toes 2 and 3 and 4. Pending Studies Studies pending at discharge: no Laboratory Results Hemoglobin A1c Test 05/21/17 13:40 Range/Units Estimated Average Glucose 272 mg/dl Hemoglobin A1c 11.1 H 4.5-5.6 % Medical Emergencies . Who to Call and When: Medical Emergencies: If at any time you feel your situation is an emergency, please call 911 immediately. . Non-Emergent Contact Non-Emergency issues call your: Primary Care Provider . . "Provider Documentation" section prepared by Lorenzo Yo. .
--- NOTE | 2017-05-23 18:08 | Progress Note ---
Subjective Date of Service: May 23, 2017. Subjective Pt evaluation today including: conversation w/ patient, chart review, lab review, review of studies, conversation w/ safety consultant, review of inpatient medication list Doing well, up and walk, no complaint Problem List Medical Problems: (1) Cellulitis of foot Status: Acute (2) Low back pain with sciatica Status: Acute Review of Systems Constitutional: No fever, No chills, No sweats, No weight loss, No weakness, No fatigue, No problem reported Eyes: No worsening of vision, No eye pain, No redness, No discharge, No diplopia ENT: No hearing loss, No unusual epistaxis, No nasal symptoms, No sore throat, No tinnitus, No dental problems, No trouble swallowing Respiratory: No cough, No sputum, No wheezing, No shortness of breath, No dyspnea on exertion, No dyspnea at rest, No hemoptysis Cardiac: No chest pain, No orthopnea, No PND, No edema, No claudication, No palpitations Abdomen: No pain, No nausea, No vomiting, No diarrhea, No constipation Musculoskeletal: + joint pain, No muscle pain, No swelling, No calf pain Male : No dysuria, No urinary frequency, No incontinence, No nocturia more than once/night, No slowing stream, No hematuria Neurologic: No memory loss, No paralysis, No weakness, No numbness/tingling, No vertigo, No balance problems Psychiatric: No depression symptoms, No anhedonism, No anxiety, No insomnia, No substance abuse Heme: No abnormal bleeding/bruising, No clotting problems, No swollen lymph nodes, No night sweats Endo: No fatigue, No excessive thirst, No excessive urination Skin: No rash, No itch, No new/changing skin lesions, No color change, No bleeding Objective Vital Signs Date Time Temp Pulse Resp B/P (MAP) Pulse Ox O2 Delivery O2 Flow Rate FiO2 05/23/17 12:11 36.6 74 16 94 Room Air 05/23/17 08:00 Room Air 05/23/17 07:15 36.6 74 16 152/87 (108) 94 Room Air 05/22/17 23:25 37.0 78 16 144/75 (98) 94 Room Air 05/22/17 20:58 83 159/83 (108) 05/22/17 19:55 Room Air Physical Exam General Appearance: WD/WN, no apparent distress Eyes: normal inspection, PERRL, EOMI, sclerae normal ENT: normal ENT inspection, hearing grossly normal, pharynx normal Neck: supple, no adenopathy, thyroid normal, no JVD, no carotid bruits, trachea midline Respiratory/Chest: chest non-tender, lungs clear, normal breath sounds, no respiratory distress, no accessory muscle use Cardiovascular: regular rate, rhythm, no edema, no gallop, no JVD, no murmur Abdomen: normal bowel sounds, non tender, soft, no organomegaly, no pulsatile mass Extremities: normal range of motion, non-tender, no pedal edema, no calf tenderness, normal capillary refill, pelvis stable, + pertinent finding (right foot local in dressing) Neurologic/Psychiatric: 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 as tested, no motor/sensory deficits, alert, normal mood/affect, oriented x 3 Skin: normal color, warm/dry, no rash Lymphatic: no adenopathy Laboratory Results Last 24 Hours Test 05/22/17 20:33 05/22/17 23:21 05/23/17 05:32 05/23/17 07:52 Bedside Glucose 214 mg/dl 204 mg/dl 152 mg/dl White Blood Count 9.81 K/uL Red Blood Count 4.51 M/uL Hemoglobin 13.4 g/dL Hematocrit 39.1 % Mean Corpuscular Volume 86.7 fL Mean Corpuscular Hemoglobin 29.7 pg Mean Corpuscular Hemoglobin Concent 34.3 g/dl RDW Standard Deviation 41.7 fL RDW Coefficient of Variation 13.1 % Platelet Count 306 K/uL Mean Platelet Volume 9.5 fL Test 05/23/17 12:05 Bedside Glucose 251 mg/dl Assessment and Plan 51-year-old male admitted to Dr. Chow's service l for an elective I&D/ debridement of right lower extremity. Status post incision, debridement, partial amputation of proximal phalanx of right big toe and percutaneous flexor digitorum longus tendon release of toes 2 and 3 and 4, postoperative day #2 , weightbearing, PT OT, DVT prophylaxis, and discharge plan , and pain control will be per primary team Right foot infected diabetic ulcer plus osteomyelitis proximal phalanx of right big toe status post debridement/partial proximal phalanx amputation/tendon release: Continue current antibiotics, agree with Dr. Vincent's input, recommend a follow- up culture and sensitivity, Uncontrolled diabetic with A1c at 11 , was on insulin Lantus and checking One Touch 4 times a day,, clinical systems educator discussed with me and patient, detailed planning please see instructions below. Hypertension Peripheral neuropathy Mild obesity The above condition are stable, continue current medication Anxiety on Wellbutrin at home, now patient is discharged to home with Zyvox, because there is concern about contraindication of Zyvox and Wellbutrin interaction which may have risk caused serotonin syndrome, therefore we discontinue Wellbutrin after counseling about the risks and benefits, vies patient to follow-up with his PCP for the options of anxiety medicine, PCP updated him about the decisions Instructions / Follow-Up you have toe infection Status post incision, debridement, for this detail you need to follow up instructions from your surgeon you have uncontrolled diabetic with A1c at 11 , you can continue insulin Lantus , I changed Janumet to Metformin, added Novolog 5 unit every meal, and Insulin sliding scale, Insulin sliding scale instructions see below: Blood glucose 150-175, 1 unit Blood glucose 176-200, 2 unit Blood glucose 201 to 225, 3 unit Glucose 226 to 250 4 unit Blood glucose from 251 to 275 , 5 unit Blood glucose from 276 to 300 6 unit Blood glucose from 301 to 325, 7 unit Blood glucose from 326 to 350, 8 unit Blood glucose from 351 to 375 , 9 units Blood glucose from 376 to 400 , 10 units Call PCP if blood glucose > 400 you have anxiety was on Wellbutrin, because you are now on Zyvox, I recommend to stop Wellbutrin because of drug drug interactions You need to be seen by your family doctor in next Saturday or Saturday, to follow- up all of your medical conditions include diabetic and to find the options of medication instead of Wellbutrin for your anxiety Call PCP if any questions Continued [facility] stay due to: multiple IV medications needed Discharge planning: home
== END 2017-05-23 14:48 | disposition home health service (06) | DRG 617 ==
LOC: C.ACU 05:13 → C.3E 09:11 → ENRESERV 09:32
PROVIDERS: ADMIT Internal Medicine; ATTEND Physical Medicine & Rehabilitation Sports Medicine
PROC: 0LNV0ZZ Release Right Foot Tendon, Open Approach (ICD-10-PCS; principal; 2017-05-21 07:15)
PROC: 0JBQ0ZZ Excision of Right Foot Subcutaneous Tissue and Fascia, Open Approach (ICD-10-PCS; principal; 2017-05-21 07:15)
PROC: 0Y6P0Z1 Detachment at Right 1st Toe, High, Open Approach (ICD-10-PCS; principal; 2017-05-21 07:15)
DX: E11.69 Type 2 diabetes mellitus with other specified complication (principal); M86.8X7 Other osteomyelitis, ankle and foot; L03.115 Cellulitis of right lower limb; E11.621 Type 2 diabetes mellitus with foot ulcer; E11.40 Type 2 diabetes mellitus with diabetic neuropathy, unspecified; B95.8 Unspecified staphylococcus as the cause of diseases classified elsewhere; L97.519 Non-pressure chronic ulcer of other part of right foot with unspecified severity; F41.9 Anxiety disorder, unspecified; I10 Essential (primary) hypertension; E66.9 Obesity, unspecified; Z87.442 Personal history of urinary calculi; Z96.652 Presence of left artificial knee joint; Z83.3 Family history of diabetes mellitus; Z88.1 Allergy status to other antibiotic agents; Z88.7 Allergy status to serum and vaccine; Z79.4 Long term (current) use of insulin; M21.531 Acquired clawfoot, right foot; Z79.82 Long term (current) use of aspirin

== ENCOUNTER 2019-12-09 14:25 | Inpatient (IN) ==
[2019-12-09] MEDS ORDERED: ASPIRIN CHEW 324 MG PO STA (14:42)
[2019-12-09] MEDS ORDERED: NITROGLYCERIN SL 0.4 MG/TAB TAB SL PRN (14:42)
--- NOTE | 2019-12-09 14:54 | Emergency Department Note ---
Impression & Plan Chest pain, CHF (congestive heart failure), Acute hyperkalemia ED Provider Note NAME: KY LOMBARDI AGE: 54 SEX: M : 1965 ARRIVES VIA: Walk-In INFORMANT: Patient ED PROVIDER(S): Dusty Johnson DO CHIEF COMPLAINT: Chest Pain HPI: Patient is a 54-year-old male with a past medical history of A. fib, diastolic heart failure, diabetes, hypertension, hyperlipidemia who presents to the ER for chest pain and shortness of breath. It started while he was walking up a small flight of stairs. He notes it improved with rest. It was worse when he was moving around. Is currently about 5 out of 10. It is in the middle of his chest. Describes as a pressure and heaviness. His arms feel weak and tired. He does have some shortness of breath associated with this. He has never had this before. No previous heart attacks that he is aware of. ROS: See above HPI for pertinent positives & negatives. A total of 10 systems reviewed and were otherwise negative. PAST MEDICAL HISTORY:See Below PAST SURGICAL HISTORY:See Below FAMILY HISTORY:See Below SOCIAL HISTORY:See Below HOME MEDICATIONS:See Below ALLERGIES:See Below VITALS:See Below PHYSICAL EXAMINATION: GENERAL: Sitting up in bed, alert, well appearing, well nourished, no distress, non-toxic EYE EXAM: normal conjunctiva. OROPHARYNX: no exudate, no erythema, lips, buccal mucosa, and tongue normal and mucous membranes are moist NECK: supple, no nuchal rigidity, no adenopathy, non-tender LUNGS: Clear to auscultation. Normal chest wall mechanics HEART: no murmurs, S1 normal and S2 normal ABDOMEN: abdomen soft, non-tender, normo-active bowel sounds, no masses, no rebound or guarding. BACK: Back is symmetrical on inspection and there is no deformity, no midline tenderness, no CVA tenderness. SKIN: no rashes and no bruising UPPER EXTREMITIES: upper extremities are grossly normal. LOWER EXTREMITIES: +pitting edema. Calves are equal bilateral NEURO EXAM: Normal sensorium, cranial nerves II-XII grossly intact, normal speech, no gross weakness of arms, no gross weakness of legs. MEDICAL DECISION MAKING: Patient is a 54-year-old male with a past medical history of diastolic heart failure, diabetes, hypertension, hyperlipidemia and A. fib that presents the ER for chest pain. IV was established and blood work was obtained. Labs show mild leukocytosis 11,000. Mild anemia 11. BMP with a potassium of 5.4. Creatinine at 1.47. LFTs bilirubin and troponin was negative. Lipase unremarkable. Chest x-ray suggestive of CHF. EKG was nonischemic. Patient was updated bedside. He was given aspirin and nitro as well as a dose of morphine and his pain resolved. Patient was updated at bedside and discussed with hospitalist for further evaluation. Triage Nursing notes reviewed. Prior medical records reviewed Vital Signs: reviewed and remarkable for no significant abnormalities Differential diagnosis: Differential diagnoses includes but is not limited to acute coronary syndrome, myocardial infarction, pericarditis, pulmonary embolus, aortic dissection, pneumonia, pneumothorax, musculoskeletal, shingles, esophageal. ER treatment provided: See below Diagnostics interpreted by me: ECG: Sinus rhythm 67 normal axis no PVCs Normal QTc Cardiac Monitoring: An order was placed for continuous cardiac monitoring. The monitor shows a rate of 68 with sinus rhythm. Laboratory studies: As stated above and show below. Imaging studies: See below Consultation(s): Discussed with hospitalist for further evaluation ED COURSE: Procedures: none Critical Care: None Past Med/Surg History Medical History (Updated 12/09/19 @ 19:53 by Dusty Johnson DO) Acquired bilateral hammer toes Acquired claw toe of right foot Amputated great toe of right foot Callus Depression Depression Diabetes mellitus Diabetic peripheral neuropathy associated with type 2 diabetes mellitus DM type 2 (diabetes mellitus, type 2) Dysesthesia History of amputation of right great toe History of diabetic ulcer of foot HTN (hypertension) Hyperlipidemia Hyperlipidemia Hypokalemia Hyponatremia Lymphangitis, acute, lower leg Obstructive sleep apnea syndrome Surgical screw in right hand Ulcer of left midfoot Ureteral stone Surgical History (Updated 11/02/19 @ 15:32 by Mulu Arambula PA-C) History of colonoscopy History of wisdom tooth extraction S/P knee surgery S/P left knee surgery Family History Other No pertinent family history Social History Smoking Status: Never smoker Second Hand Exposure: No; Hx Substance Use: No Preferred Language: Nigerian Communication Ability: Effective Visual Impairment: Limited 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 Groceries Required: No Beliefs That Will Affect Care: None marital status: Current Living Situation: Spouse current occupational status: employed 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 How many Children do You have: 2 Feels Safe at Home: Yes during the past year weight has: remained stable Allergies Allergies Allergy/AdvReac Type Severity Reaction Status Date / Time pneumococcal vaccine AdvReac Intermediate GI Verified 12/09/19 16:43 SYMPTOMS-OK IF MULTIPLE VACCINES GIVEN SEPARATELY tetanus toxoid, adsorbed AdvReac Intermediate TETANUS/DIPTHERIA/PERTUSSIS-GI Verified 12/09/19 16:43 UPSTE/BODY ACHES levofloxacin AdvReac Mild GI SYMPTOMS Verified 12/09/19 16:43 Home Meds Home Medications Medication Instructions Recorded Confirmed bupropion HCl [Wellbutrin XL] 300 mg PO DAILY 12/05/17 12/09/19 ezetimibe [Zetia] 10 mg PO PM 12/05/17 12/09/19 gabapentin [Neurontin] 100 mg PO TID 12/05/17 12/09/19 insulin aspart U-100 [Novolog 0 unit SUBCUT ACHS 12/05/17 12/09/19 Flexpen U-100 Insulin] lisinopril 5 mg PO QAM 12/05/17 12/09/19 metformin 1,000 mg PO BIDM 12/05/17 12/09/19 insulin glargine [Lantus Solostar 80 unit SUBCUT PM 01/06/18 12/09/19 U-100 Insulin] aspirin 81 mg tablet,delayed 81 mg PO DAILY 04/02/18 12/09/19 release verapamil 120 mg 24 hr 120 mg PO DAILY 04/02/18 12/09/19 capsule,extended release furosemide 20 mg PO QAM 12/09/19 12/09/19 trazodone 50 mg PO HS PRN 12/09/19 12/09/19 Previous Rx's Medication Instructions Recorded oxycodone 5 mg PO Q4H PRN #15 tab 03/27/19 cephalexin 500 mg capsule 500 mg PO BID #60 cap 04/01/19 Results & Data (ED) Vital Signs Vital Signs - 24 hr 12/09/19 14:27 12/09/19 14:39 12/09/19 14:48 Temperature 36.9 C Temperature Source Oral Pulse Rate 62 69 Pulse Rate from SpO2 Sensor Respiratory Rate 18 15 Respiratory Effort / Characteristics Short of Breath Respiratory Depth Respiratory Pattern Blood Pressure 118/71 Blood Pressure Mean 86 Blood Pressure Position Sitting Pulse Oximetry 96 98 Oxygen Delivery Method Room Air Room Air Sepsis Recent Fever Within 48 Hours No Sepsis New/Unexplained Change in Mental Status N/A Sepsis Action Taken by Nursing No Action Required 12/09/19 14:49 12/09/19 14:51 12/09/19 15:00 Temperature Temperature Source Pulse Rate 71 Pulse Rate from SpO2 Sensor Respiratory Rate 18 Respiratory Effort / Characteristics Non-Labored Spontaneous Respiratory Depth Normal Respiratory Pattern Regular Blood Pressure Blood Pressure Mean Blood Pressure Position Pulse Oximetry 98 Oxygen Delivery Method Room Air Sepsis Recent Fever Within 48 Hours Sepsis New/Unexplained Change in Mental Status Sepsis Action Taken by Nursing 12/09/19 15:09 12/09/19 15:11 12/09/19 15:12 Temperature Temperature Source Pulse Rate 69 71 70 Pulse Rate from SpO2 Sensor 71 Respiratory Rate 22 24 20 Respiratory Effort / Characteristics Respiratory Depth Respiratory Pattern Blood Pressure 129/63 126/67 123/64 Blood Pressure Mean 79 86 86 Blood Pressure Position Pulse Oximetry 92 92 90 Oxygen Delivery Method Sepsis Recent Fever Within 48 Hours Sepsis New/Unexplained Change in Mental Status Sepsis Action Taken by Nursing 12/09/19 15:30 12/09/19 15:31 12/09/19 16:00 Temperature Temperature Source Pulse Rate 70 69 71 Pulse Rate from SpO2 Sensor 70 69 71 Respiratory Rate 21 24 22 Respiratory Effort / Characteristics Respiratory Depth Respiratory Pattern Blood Pressure 141/72 H 142/73 H Blood Pressure Mean 84 91 Blood Pressure Position Pulse Oximetry 92 91 93 Oxygen Delivery Method Sepsis Recent Fever Within 48 Hours Sepsis New/Unexplained Change in Mental Status Sepsis Action Taken by Nursing 12/09/19 16:01 12/09/19 16:30 12/09/19 16:31 Temperature Temperature Source Pulse Rate 72 72 72 Pulse Rate from SpO2 Sensor 72 72 73 Respiratory Rate 22 18 21 Respiratory Effort / Characteristics Respiratory Depth Respiratory Pattern Blood Pressure 155/67 H Blood Pressure Mean 101 Blood Pressure Position Pulse Oximetry 91 91 91 Oxygen Delivery Method Sepsis Recent Fever Within 48 Hours Sepsis New/Unexplained Change in Mental Status Sepsis Action Taken by Nursing Laboratory Data Result diagrams: 12/09/19 14:43 12/09/19 14:43 Lab Results 12/09/19 12/09/19 12/09/19 Range/Units 14:43 14:43 14:43 WBC 11.47 H (4.8-10.8) K/uL RBC 4.05 L (4.7-6.1) M/uL Hgb 11.6 L (14.0-18.0) g/dL Hct 36.3 L (42-52) % MCV 89.6 (80-100) fL MCH 28.6 (25-34) pg MCHC 32.0 (32-36) g/dL RDW Std Deviation 45.2 (36.4-46.3) fL RDW Coeff of Monica 13.8 (11.5-14.5) % Plt Count 270 (130-400) K/uL MPV 11.1 H (7.4-10.4) fL Immature Gran % (Auto) 0.4 % Neut % (Auto) 76.5 % Lymph % (Auto) 14.5 % Elbert % (Auto) 5.8 % Eos % (Auto) 2.4 % Baso % (Auto) 0.4 % Neut # (Auto) 8.77 H (1.4-6.5) K/uL Lymph # (Auto) 1.66 (1.2-3.4) K/uL Elbert # (Auto) 0.67 H (0.11-0.59) K/uL Eos # (Auto) 0.27 (0-0.5) K/uL Baso # (Auto) 0.05 (0-0.2) K/uL Immature Gran # (Auto) 0.05 H (0.00-0.02) K/uL PT 12.5 H (9.0-12.0) Seconds INR 1.2 H (0.9-1.1) APTT 30.0 (21.0-31.0) Seconds PTT Ratio 1.1 Sodium 138 (136-145) mmol/L Potassium 5.4 H (3.5-5.1) mmol/L Chloride 106 (98-107) mmol/L Carbon Dioxide 24 (21-32) mmol/L Anion Gap 9.0 (3-11) BUN 22 H (7-18) mg/dl Creatinine 1.47 H (0.6-1.4) mg/dl Est Cr Clr Drug Dosing Not Reportable Est GFR ( Amer) 60.9 Est GFR (Non-Af Amer) 52.6 BUN/Creatinine Ratio 15.1 (10-20) Glucose 263 H (70-99) mg/dl Calcium 9.2 (8.5-10.1) mg/dl Total Bilirubin 0.3 (0.2-1) mg/dl AST 23 (15-37) U/L ALT 31 (12-78) U/L Alkaline Phosphatase 121 H (45-117) U/L Troponin I < 0.015 (0-0.045) ng/ml Total Protein 6.5 (6.4-8.2) gm/dl Albumin 3.0 L (3.4-5.0) gm/dl Globulin 3.5 (2.5-4.0) gm/dl Albumin/Globulin Ratio 0.8 L (0.9-2) Lipase 138 (73-393) U/L Procalcitonin (0-0.5) ng/ml 12/09/19 Range/Units 14:43 WBC (4.8-10.8) K/uL RBC (4.7-6.1) M/uL Hgb (14.0-18.0) g/dL Hct (42-52) % MCV (80-100) fL MCH (25-34) pg MCHC (32-36) g/dL RDW Std Deviation (36.4-46.3) fL RDW Coeff of Monica (11.5-14.5) % Plt Count (130-400) K/uL MPV (7.4-10.4) fL Immature Gran % (Auto) % Neut % (Auto) % Lymph % (Auto) % Elbert % (Auto) % Eos % (Auto) % Baso % (Auto) % Neut # (Auto) (1.4-6.5) K/uL Lymph # (Auto) (1.2-3.4) K/uL Elbert # (Auto) (0.11-0.59) K/uL Eos # (Auto) (0-0.5) K/uL Baso # (Auto) (0-0.2) K/uL Immature Gran # (Auto) (0.00-0.02) K/uL PT (9.0-12.0) Seconds INR (0.9-1.1) APTT (21.0-31.0) Seconds PTT Ratio Sodium (136-145) mmol/L Potassium (3.5-5.1) mmol/L Chloride (98-107) mmol/L Carbon Dioxide (21-32) mmol/L Anion Gap (3-11) BUN (7-18) mg/dl Creatinine (0.6-1.4) mg/dl Est Cr Clr Drug Dosing Est GFR ( Amer) Est GFR (Non-Af Amer) BUN/Creatinine Ratio (10-20) Glucose (70-99) mg/dl Calcium (8.5-10.1) mg/dl Total Bilirubin (0.2-1) mg/dl AST (15-37) U/L ALT (12-78) U/L Alkaline Phosphatase (45-117) U/L Troponin I (0-0.045) ng/ml Total Protein (6.4-8.2) gm/dl Albumin (3.4-5.0) gm/dl Globulin (2.5-4.0) gm/dl Albumin/Globulin Ratio (0.9-2) Lipase (73-393) U/L Procalcitonin 0.14 (0-0.5) ng/ml Administered Medications Nitroglycerin (Nitroglycerin Sl 0.4 Mg/Tab Tab) 0.4 mg SL UD PRN PRN Reason: Chest Pain Stop: 01/08/20 14:41 Last Admin: 12/09/19 15:10 Dose: 0.4 mg Documented by: [id number] Discontinued Medications Aspirin (Aspirin Chew 324 Mg) 243 mg PO NOW STA Stop: 12/09/19 14:43 Last Admin: 12/09/19 15:09 Dose: 243 mg Documented by: [id number] Furosemide (Furosemide 40 Mg/4 Ml Vial) 40 mg IV NOW STA Stop: 12/09/19 15:50 Last Admin: 12/09/19 15:58 Dose: 40 mg Documented by: [id number] Morphine Sulfate (Morphine Sulfate 4 Mg/Ml 1 Ml Carp\Vial) 4 mg IV NOW STA Stop: 12/09/19 15:31 Last Admin: 12/09/19 15:39 Dose: 4 mg Documented by: [id number] Discharge Plan Visit Data Chief Complaint: Shortness of Breath/Dyspnea Stated Complaint: SOB,HEAVINESS IN ARMS AND SHOULDER,TIRED ED Provider: Dusty Johnson Discharge Problem: Chest pain, CHF (congestive heart failure), Acute hyperkalemia Patient Disposition: Admitted As Inpatient Discharge Instructions Interventions: ED Discharge Assessment Last Done: 12/09/19 19:25 Discharge Problem: Chest pain Qualifiers: Chest pain type: unspecified Qualified Code(s): R07.9 - Chest pain, unspecified CHF (congestive heart failure) Qualifiers: Heart failure type: unspecified Heart failure chronicity: unspecified Qualified Code(s): I50.9 - Heart failure, unspecified
[2019-12-09 15:04] LABS: Basophils # (auto) 0.05 K/uL (0-0.2); Basophils % (auto) 0.4 %; Eosinophils # (auto) 0.27 K/uL (0-0.5); Eosinophils % (auto) 2.4 %; Hematocrit (blood only) 36.3 % (42-52); Hemoglobin 11.6 g/dL (14.0-18.0); Immature Granulocytes # (auto) 0.05 K/uL (0.00-0.02); Immature Granulocytes % (auto) 0.4 %; Lymphocytes # (auto) 1.66 K/uL (1.2-3.4); Lymphocytes % (auto) 14.5 %; Mean Corpuscular Hemoglobin 28.6 pg (25-34); Mean Corpuscular Volume 89.6 fL (80-100); Mean Platelet Volume 11.1 fL (7.4-10.4); Monocytes # (auto) 0.67 K/uL (0.11-0.59); Monocytes % (auto) 5.8 %; Neutrophils # (auto) 8.77 K/uL (1.4-6.5); Neutrophils % (auto) 76.5 %; Platelet Count 270 K/uL (130-400); RDW Coefficient of Variation 13.8 % (11.5-14.5); RDW Standard Deviation 45.2 fL (36.4-46.3); Red Blood Count 4.05 M/uL (4.7-6.1); White Blood Count 11.47 K/uL (4.8-10.8)
--- NOTE | 2019-12-09 15:17 | XRay Report ---
SINGLE VIEW CHEST CLINICAL HISTORY: Atypical chest pain. FINDINGS: An AP, portable, upright chest radiograph is compared to study dated 01/30/2018 and correlat ed with chest CT dated 01/01/2018. The examination is degraded by portable technique, apical lordotic positioning, and patient rotation. The heart is enlarged. There is pulmonary vascular congestion. B ilateral airspace opacities are noted. No large pleural effusion or pneumothorax is seen. The bony th orax is grossly intact. IMPRESSION: 1. Cardiomegaly with evidence of congestive failure. 2. Bilateral airspace opacities likely represent interstitial edema. Correlate clinically for evidenc e of a superimposed infectious/inflammatory pneumonitis. ACT 112: Negative or not required by law. Electronically signed by: Blaise Vinson M.D. 12/09/2019 3:16 PM
[2019-12-09 15:18] LABS: INR 1.2 (0.9-1.1); Partial Thromboplastin Ratio 1.1; Prothrombin Time 12.5 Seconds (9.0-12.0)
[2019-12-09 15:25] LABS: Alanine Aminotransferase 31 U/L (12-78); Aspartate Aminotransferase 23 U/L (15-37); BUN Creatinine Ratio 15.1 (10-20); Blood Urea Nitrogen 22 mg/dl (7-18); Calcium 9.2 mg/dl (8.5-10.1); Carbon Dioxide 24 mmol/L (21-32); Chloride 106 mmol/L (98-107); Est GFR (African American) 60.9; Est GFR (Non-African American) 52.6; Glucose 263 mg/dl (70-99); Lipase 138 U/L (73-393); Potassium 5.4 mmol/L (3.5-5.1); Sodium 138 mmol/L (136-145)
[2019-12-09 15:30] LABS: Albumin Globulin Ratio 0.8 (0.9-2); Alkaline Phosphatase 121 U/L (45-117); Bilirubin,Total 0.3 mg/dl (0.2-1); Globulin 3.5 gm/dl (2.5-4.0); Total Protein 6.5 gm/dl (6.4-8.2); Troponin I < 0.015 ng/ml (0-0.045)
[2019-12-09] MEDS ORDERED: MoRPHine SULFATE 4 MG/ML 1 ML CARP\\VIAL IV STA (15:30)
[2019-12-09] MEDS ORDERED: FUROSEMIDE 40 MG/4 ML VIAL IV STA (15:49)
--- NOTE | 2019-12-09 17:58 | History & Physical Report ---
Date of Service December 09, 2019 Assessment & Plan (1) Chest pain: suspect cardiac demand in setting of acute chf Trend troponins to r/o ACS although low suspicion of this. (2) Acute on chronic congestive heart failure: Unclear what caused acute exacerbation. No change in diet. Compliant with Lasix. Previous LVEF in 2018 normal - Strict I&Os Daily weights Lasix 40mg IV given in ER with producing good amounts of urine, continue lasix 40mg IV in AM as long as Cr improving. Pending TTE will continue his usual verapamil - unclear why he is not on metoprolol succinate, consider switching. Continue lisinopril 5 mg p.o. nightly. (3) Acute hyperkalemia: Should improve with lasix use. (4) Obstructive sleep apnea syndrome: CPAP 12 cm H2O (5) Multiple transverse process fractures: Gabapentin 100 mg p.o. 3 times daily Home dose: oxycodone every 4 hourly as needed (6) DM type 2 (diabetes mellitus, type 2): HbA1c 8.0 in 2018, repeat with a.m. labs Hold home dosing of metformin Continue his usual Lantus 80 units at bedtime NovoLog sliding scale, aim 100-140, correction 10mg/dL/unit, 1 unit per 3 g carbs BSG ACHS Admission and Anticipated Discharge Date Admission Date: December 09, 2019 History of Present Illness Chief Complaint: Chest pain, shortness of breath Primary Care Provider: Dino Johnson MD Casey Walker is a 54-year-old male with significant past medical history of atrial fibrillation, diastolic heart failure, diabetes, hypertension, hyperlipidemia who presents to the ER with chest pain and shortness of breath. Both his chest pain and shortness of breath occurred at the same time while walking up a flight of stairs. It improved with rest but did not fully resolved. Describes as a substernal pressure and heaviness. Worse on exertion. Severity 5/10 at worst, currently 0/10. He denies any prior heart attack. He has never had chest pain like this before. Chest pressure lasted until he came to the emergency room. He does note worsening leg swelling and shortness of breath over the last 2 days. No change in his diet. No change in his medication. He reports compliance with his medication. He is using his CPAP at night. In the ER he was diagnosed with congestive heart failure and rule out ACS. He was given nitroglycerin 0.4 mg, aspirin 243 mg, Lasix 40 mg IV, morphine 4 mg IV. With interventions given he feels much improved and denies any chest pain at this time. Allergies Allergy/AdvReac Type Severity Reaction Status Date / Time pneumococcal vaccine AdvReac Intermediate GI Verified 12/09/19 16:43 SYMPTOMS-OK IF MULTIPLE VACCINES GIVEN SEPARATELY tetanus toxoid, adsorbed AdvReac Intermediate TETANUS/DIPTHERIA/PERTUSSIS-GI Verified 12/09/19 16:43 UPSTE/BODY ACHES levofloxacin AdvReac Mild GI SYMPTOMS Verified 12/09/19 16:43 Home Medications Home Medications Medication Instructions Recorded Confirmed Type bupropion HCl [Wellbutrin XL] 300 mg PO DAILY 12/05/17 12/09/19 History ezetimibe [Zetia] 10 mg PO PM 12/05/17 12/09/19 History gabapentin [Neurontin] 100 mg PO TID 12/05/17 12/09/19 History lisinopril 5 mg PO QAM 12/05/17 12/09/19 History metformin 1,000 mg PO BIDM 12/05/17 12/09/19 History Lantus Solostar U-100 Insulin 80 unit SUBCUT PM 01/06/18 12/09/19 History aspirin 81 mg tablet,delayed 81 mg PO DAILY 04/02/18 12/09/19 History release verapamil 120 mg 24 hr 120 mg PO DAILY 04/02/18 12/09/19 History capsule,extended release oxycodone 5 mg PO Q4H PRN #15 tab 03/27/19 12/09/19 Rx cephalexin 500 mg capsule 500 mg PO BID #60 cap 04/01/19 12/09/19 Rx furosemide 20 mg PO QAM 12/09/19 12/09/19 History trazodone 50 mg PO HS PRN 12/09/19 12/09/19 History insulin aspart U-100 [Novolog 0 unit SUBCUT ACHS #0 ml 12/12/19 12/09/19 Rx Flexpen U-100 Insulin] Past Med/Surg History Medical History (Updated 12/11/19 @ 15:21 by Navi Garvey MD) Acquired bilateral hammer toes Acquired claw toe of right foot Amputated great toe of right foot Callus Depression Depression Diabetes mellitus Diabetic peripheral neuropathy associated with type 2 diabetes mellitus DM type 2 (diabetes mellitus, type 2) Dysesthesia History of amputation of right great toe History of diabetic ulcer of foot HTN (hypertension) Hyperlipidemia Hyperlipidemia Hypokalemia Hyponatremia Lymphangitis, acute, lower leg Obstructive sleep apnea syndrome Surgical screw in right hand Ulcer of left midfoot Ureteral stone Surgical History (Updated 11/02/19 @ 15:32 by Mulu Arambula PA-C) History of colonoscopy History of wisdom tooth extraction S/P knee surgery S/P left knee surgery Family History Other No pertinent family history Social History Smoking Status: Never smoker Second Hand Exposure: No; Hx Alcohol Use: Yes Alcohol type: beer Hx Substance Use: No Preferred Language: Spanish Communication Ability: Effective Visual Impairment: Limited 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 Beliefs That Will Affect Care: None marital status: Current Living Situation: Family current occupational status: employed 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 How many Children do You have: 2 Feels Safe at Home: Yes during the past year weight has: remained stable Review of Systems Review of Systems: All systems reviewed & are unremarkable except as noted in HPI & below Physical Exam Constitutional: well developed and + obese; + not well nourished and no acute distress Eyes: + anicteric sclerae; normal pupil size ENMT: external ear and nose normal, oropharynx normal Neck: trachea midline, no thyromegaly Respiratory: normal respiratory effort and able to speak in complete sentences; no labored breathing, no retractions, does not use accessory muscles and no cough Auscultation: + crackles (Bibasal to mid zone on back); no diminished lung sounds, no rales, no rhonchi and no wheezes Cardiovascular: Rate/Rhythm: regular rate and regular rhythm Heart Sounds: no murmur Vessels: + JVD Extremities: normal capillary refill and + pedal edema (3+ pitting to mid thighs b/l equal) Gastrointestinal (Abdomen): normal bowel sounds, soft, nontender, no hepatosplenomegaly Musculoskeletal: no cyanosis or clubbing, extremities motor strength 5/5 Skin: no rashes, warm and dry (No areas of cellulitis) Neurologic: moves all extremities and awake; not confused Psychiatric: A+Ox3, euthymic affect Genitourinary: no CVA tenderness Results & Data Results & Data ([facility]) Vital Signs (Past 12 Hours) Vital Signs Temp Pulse Resp BP Pulse Ox 12/09/19 16:31 72 21 91 12/09/19 16:30 72 18 155/67 H 91 12/09/19 16:01 72 22 91 12/09/19 16:00 71 22 142/73 H 93 12/09/19 15:31 69 24 141/72 H 91 12/09/19 15:30 70 21 92 12/09/19 15:12 70 20 123/64 90 12/09/19 15:11 71 24 126/67 92 12/09/19 15:09 69 22 129/63 92 12/09/19 15:00 71 18 12/09/19 14:49 98 12/09/19 14:48 98 12/09/19 14:39 69 15 12/09/19 14:27 36.9 C 62 18 118/71 96 Diagnostic Findings SINGLE VIEW CHEST IMPRESSION: 1. Cardiomegaly with evidence of congestive failure. 2. Bilateral airspace opacities likely represent interstitial edema. Correlate clinically for evidence of a superimposed infectious/inflammatory pneumonitis. ECG Indication: chest pain Rate (beats per minute): 67 Rhythm: normal sinus Findings: no acute ischemic change Comparison ECG Date: from Code Status & VTE Plan Code Status Full VTE Prophylaxis Plan VTE Prophylaxis will be ordered: No PG Care Time/CCT Total # of Minutes Spent Total Time Spent with Patient: Total time spent is greater than 50% in coordination of care (as documented) at patient's floor/unit and/or counseling patient: Coding Level of Care Code 87750 Initial Inpt Care Lvl 3 Diagnoses Chest pain R07.9 Chest pain type: unspecified Acute on chronic congestive heart failure I50.9 Acute hyperkalemia E87.5 Obstructive sleep apnea syndrome G47.33 Multiple transverse process fractures DM type 2 (diabetes mellitus, type 2) E11.9 (1) Chest pain Chest pain type: unspecified Qualified Code(s): R07.9 - Chest pain, unspecified
[2019-12-09 18:14] LABS: Adenovirus PCR Not Detected (NotDetected); Bordetella parapertussis PCR Not Detected (NotDetected); Bordetella pertussis PCR Not Detected (NotDetected); Chlamydia pneumoniae PCR Not Detected (NotDetected); Coronavirus 229E PCR Not Detected (NotDetected); Coronavirus CoV-2 (COVID19)PCR Not Detected (NotDetected); Coronavirus HKU1 PCR Not Detected (NotDetected); Coronavirus NL63 PCR Not Detected (NotDetected); Coronavirus OC43PCR Not Detected (NotDetected); Human Metapneumovirus PCR Not Detected (NotDetected); Influenza A PCR Not Detected (NotDetected); Influenza B PCR Not Detected (NotDetected); Mycoplasma pneumoniae PCR Not Detected (NotDetected); Parainfluenza Virus 1 PCR Not Detected (NotDetected); Parainfluenza Virus 2 PCR Not Detected (NotDetected); Parainfluenza Virus 3 PCR Not Detected (NotDetected); Parainfluenza Virus 4 PCR Not Detected (NotDetected); Respiratory Syncytial VirusPCR Not Detected (NotDetected); Rhinovirus/Enterovirus PCR Not Detected (NotDetected)
[2019-12-09] MEDS ORDERED: OXYCODONE HCL IR 5 MG TAB (IMMEDIATE RELEASE) PO PRN ×2 (19:37→20:37)
[2019-12-09] MEDS ORDERED: ACETAMINOPHEN 325 MG TAB PO PRN (19:37)
[2019-12-09] MEDS ORDERED: GLUCAGON FOR INJ 1 MG VIAL SQ PRN (20:16)
[2019-12-09] MEDS ORDERED: GLUCOSE 40% GEL 15 GM TUBE PO PRN (20:16)
[2019-12-09] MEDS ORDERED: DEXTROSE 50% 50 ML SYRINGE IV PRN (20:16)
[2019-12-09] MEDS ORDERED: GLUCOSE 10 TABS/TUBE PO PRN (20:16)
[2019-12-09] MEDS ORDERED: CARBOHYDRATES FOR HYPOGLYCEMIA PO PRN (20:16)
[2019-12-09] MEDS: GABAPENTIN 100 MG CAP PO SCH (21:00)
[2019-12-09] MEDS: INSULIN GLARGINE SOLOSTAR 100 UNITS/ML 3 ML PEN SC SCH (21:00)
[2019-12-09] MEDS: EZETIMIBE 10 MG TABLET PO SCH (21:00)
[2019-12-09] MEDS: INSULIN ASPART 100 UNITS/ML 3 ML PEN SC SCH (21:01)
[2019-12-09] MEDS: TRAZODONE HCL 50 MG TAB PO PRN (21:08)
[2019-12-10 04:07] LABS: Hematocrit (blood only) 34.2 % (42-52); Hemoglobin 11.3 g/dL (14.0-18.0); Mean Corpuscular Hemoglobin 29.4 pg (25-34); Mean Corpuscular Volume 89.1 fL (80-100); Mean Platelet Volume 10.1 fL (7.4-10.4); Platelet Count 221 K/uL (130-400); RDW Coefficient of Variation 13.6 % (11.5-14.5); RDW Standard Deviation 44.4 fL (36.4-46.3); Red Blood Count 3.84 M/uL (4.7-6.1); White Blood Count 9.66 K/uL (4.8-10.8)
[2019-12-10 04:34] LABS: BUN Creatinine Ratio 21.8 (10-20); Blood Urea Nitrogen 21 mg/dl (7-18); Calcium 8.6 mg/dl (8.5-10.1); Carbon Dioxide 29 mmol/L (21-32); Chloride 106 mmol/L (98-107); Creatinine Clr Calc Pharmacy 112.4 ml/min; Glucose 125 mg/dl (70-99); Sodium 138 mmol/L (136-145)
[2019-12-10 04:36] LABS: Potassium 3.9 mmol/L (3.5-5.1)
[2019-12-10 04:49] LABS: Troponin I < 0.015 ng/ml (0-0.045)
[2019-12-10 05:43] LABS: Estimated Average Glucose 243 mg/dl; Hemoglobin A1C 10.1 % (4.5-5.6)
[2019-12-10] MEDS: GABAPENTIN 100 MG CAP PO SCH ×3 (07:58→21:19)
[2019-12-10] MEDS: BuPROPion XL 300 MG TABCR PO SCH (07:58)
[2019-12-10] MEDS: ASPIRIN 81 MG ECTAB PO SCH (08:00)
[2019-12-10] MEDS: lisinopriL 5 MG TAB PO SCH (08:01)
[2019-12-10] MEDS: VERAPAMIL HCL 120 MG TABCR PO SCH (08:01)
[2019-12-10] MEDS: INSULIN ASPART 100 UNITS/ML 3 ML PEN SC SCH ×4 (08:04→21:18)
[2019-12-10] MEDS ORDERED: FUROSEMIDE 40 MG in SYRINGE 0 ML IV SCH (09:00)
[2019-12-10] MEDS ORDERED: PERFLUTREN LIPID MICROSPHERE (DEFINITY) IV ONE (10:07)
--- NOTE | 2019-12-10 14:32 | Hospitalist Progress Note ---
Date of Service December 10, 2019 Assessment & Plan (1) Acute on chronic congestive heart failure: Presumed diastolic heart failure as his last EF was 60-65% in 2018. Exacerbation caused by dietary changes. Son has been living with him and his for the last month and orders/buys more high-sodium foods. - Continue Lasix 40 mg BID17 - Daily weights; I&Os - Consult his health information manager, Dr. Marsh (2) Hypertension: BP is 140/75 today. - Continue verapamil and lisinopril (3) Chest pain: Suspect pulmonary edema. - Troponins all < 0.015. (4) DM type 2 (diabetes mellitus, type 2): HbA1c is 8.0% in 2018; 10.1% this admission. - Hold home dosing of metformin - Continue his usual Lantus 80 units at bedtime - NovoLog sliding scale - Blood sugars have been 150-260 in the last 24 hours. (5) Obstructive sleep apnea syndrome: - Continue CPAP 12 cm H2O (6) Multiple transverse process fractures: Stable today. - Continue home gabapentin & oxycodone (7) DVT prophylaxis: Lovenox 40 mg SQ daily Admission and Anticipated Discharge Date Admission Date: December 09, 2019 Subjective Already feeling much better. Able to lie flat. Legs still swollen. Reports no fevers/chills, chest pain, shortness of breath, abdominal pain, nausea, or vomiting. Physical Exam Constitutional: WD/WN, vitals as above Eyes: EOM intact bilaterally; no conjunctival abnormality ENMT: external ear and nose normal, oropharynx normal Neck: trachea midline, no thyromegaly normal visual inspection Respiratory: normal respiratory effort, lungs clear to auscultation no respiratory distress Cardiovascular: Rate/Rhythm: regular rate and regular rhythm Heart Sounds: normal S1 and normal S2 Extremities: + edema Gastrointestinal (Abdomen): Inspection/Auscultation: abdomen normal to inspect ion; abdomen not distended Musculoskeletal: no cyanosis or clubbing, extremities motor strength 5/5 Skin: no rashes, warm and dry Neurologic: moves all extremities and awake Psychiatric: Orientation: alert, oriented to person and cooperative Results & Data Results & Data ([facility]) Vital Signs (Past 12 Hours) Vital Signs Temp Pulse Pulse Resp BP BP Pulse Ox 12/10/19 14:01 82 10 L 12/10/19 12:01 36.7 C 92 H 13 12/10/19 11:36 88 14 138/74 12/10/19 10:00 84 18 12/10/19 08:00 88 14 12/10/19 07:57 37.1 C 89 17 142/82 H 12/10/19 07:00 84 17 12/10/19 04:00 36.9 C 81 17 166/81 H 94 PG Care Time/CCT Total # of Minutes Spent Total Time Spent with Patient: Total time spent is greater than 50% in coordination of care (as documented) at patient's floor/unit and/or counseling patient: Coding Level of Care Code 66152 Subseq Hosp Care Lvl 3 Diagnoses Acute on chronic congestive heart failure I50.9 Hypertension I10 Chest pain R07.9 Chest pain type: unspecified DM type 2 (diabetes mellitus, type 2) E11.9 Obstructive sleep apnea syndrome G47.33 Multiple transverse process fractures DVT prophylaxis Z29.9 (1) Chest pain Chest pain type: unspecified Qualified Code(s): R07.9 - Chest pain, unspecified
--- NOTE | 2019-12-10 18:18 | XCELERA ---
[id number]
--- NOTE | 2019-12-10 19:46 | Electrocardiogram Report ---
Test Reason : Blood Pressure : / mmHG Vent. Rate : 067 BPM Atrial Rate : 067 BPM P-R Int : 202 ms QRS Dur : 090 ms QT Int : 406 ms P-R-T Axes : 036 026 050 degrees QTc Int : 429 ms Normal sinus rhythm Normal ECG When compared with ECG of 09-DEC-2019 14:36, No significant change was found Confirmed by Amilcar Graff ([id number]) on 12/10/2019 7:46:13 PM Referred By: REFERRED SELF Confirmed By:Amilcar Graff
[2019-12-10] MEDS: INSULIN GLARGINE SOLOSTAR 100 UNITS/ML 3 ML PEN SC SCH (21:17)
[2019-12-10] MEDS: FUROSEMIDE 40 MG in SYRINGE 0 ML IV SCH (21:18)
[2019-12-10] MEDS: EZETIMIBE 10 MG TABLET PO SCH (21:19)
[2019-12-11 06:58] LABS: Hematocrit (blood only) 35.9 % (42-52); Hemoglobin 11.8 g/dL (14.0-18.0); Mean Corpuscular Hemoglobin 28.9 pg (25-34); Mean Corpuscular Hgb Conc 32.9 g/dL (32-36); Mean Corpuscular Volume 87.8 fL (80-100); Mean Platelet Volume 10.4 fL (7.4-10.4); Platelet Count 233 K/uL (130-400); RDW Coefficient of Variation 13.5 % (11.5-14.5); Red Blood Count 4.09 M/uL (4.7-6.1); White Blood Count 7.47 K/uL (4.8-10.8)
[2019-12-11 07:52] LABS: BUN Creatinine Ratio 18.5 (10-20); Calcium 8.8 mg/dl (8.5-10.1); Creatinine Clr Calc Pharmacy 94.7 ml/min; Est GFR (African American) 84.7
[2019-12-11 08:28] LABS: Magnesium 2.1 mg/dl (1.8-2.4); Potassium 4.5 mmol/L (3.5-5.1)
[2019-12-11] MEDS: FUROSEMIDE 40 MG in SYRINGE 0 ML IV SCH (08:47)
[2019-12-11] MEDS: INSULIN ASPART 100 UNITS/ML 3 ML PEN SC SCH ×4 (08:48→22:31)
[2019-12-11] MEDS: GABAPENTIN 100 MG CAP PO SCH ×3 (08:49→22:29)
[2019-12-11] MEDS: lisinopriL 5 MG TAB PO SCH (08:49)
[2019-12-11] MEDS: VERAPAMIL HCL 120 MG TABCR PO SCH (08:49)
[2019-12-11] MEDS: BuPROPion XL 300 MG TABCR PO SCH (08:49)
[2019-12-11] MEDS: ASPIRIN 81 MG ECTAB PO SCH (08:50)
--- NOTE | 2019-12-11 09:40 | Medical Student Progress Note ---
Date of Service December 11, 2019 Assessment & Plan (1) Acute on chronic congestive heart failure: Mr Berger is a 54 yo male with a pmh significant for HFpEF, HTN, and afib. He presented to the ED with SOB and chest pain. Clinical story, labs, and imaging are not concerning of an ischemic etiology and are consistent with a CHF exacerbation that is likely due to increased salt intake in his diet. Plan: continue Lasix, daily weights, strict I/O's (2) CHF (congestive heart failure): HFpEF with an EF of 75%. Mr. Berger's systolic BP seems to run in 150- 160s. He is on verapamil and lisinopril. Plan: It is important to control BP in a setting of HFpEF. Continue BP meds, take BP regularly at home. Adding a BB to patients regimen may be helpful. Heart failure chronicity: unspecified Heart failure type: diastolic Qualified Code(s): I50.30 - Unspecified diastolic (congestive) heart failure (3) DM type 2 (diabetes mellitus, type 2): Glucose level: 225, A1C: 10.8 Plan: f/u with PCP to adjust insulin regimen. Take blood sugars at home regularly. Admission and Anticipated Discharge Date Admission Date: December 09, 2019 Supervising Attestation This is a medical student note for learning purposes only. Please see the attending note for plan. Subjective Mr. Berger reports feeling better today compared to yesterday. He woke up today with a headache 3/10 and reports experiencing some SOB when sitting up from bed that resolves instantly. He also complaints of constipation, has not had a bowel movement for 2 days, He uses 2 pillows at night. He denies chest pain, [place], diaphoretic pain, heavy or difficult breathing, calf pain, nausea, or vomiting. Review of Systems Constitutional: no fever, no chills, no sweats and no fatigue Respiratory: no cough and no dyspnea Cardiovascular: no chest pain, no chest pain at rest, no chest pain with activity, no radiating jaw, neck or arm pain, no dyspnea and no palpitations Gastrointestinal: + constipation; no abdominal pain, no nausea, no vomiting and no diarrhea/loose stools Neurologic: + headache(s); no tingling, no numbness and no confusion Physical Exam Constitutional: well developed and + obese; no acute distress Respiratory: normal respiratory effort; no respiratory distress and no labored breathing Auscultation: lungs clear to auscultation bilaterally; no rales, no rhonchi and no wheezes Cardiovascular: Rate/Rhythm: regular rate and regular rhythm Heart Sounds: + murmur; no gallop and no cardiac rub Vessels: no JVD and no carotid bruit Extremities: + edema (+2 bilateral lower extremity edema, I was unable to appreciate pedal pulse ); no calf tenderness Gastrointestinal (Abdomen): Inspection/Auscultation: abdomen normal to inspection and normal bowel sounds (distant ) Percussion/Palpation: abdomen nontender, no guarding and abdomen not rigid Results & Data ([facility]) Vital Signs (Past 12 Hours) Vital Signs Temp Pulse Pulse Pulse Resp BP Pulse Ox 12/11/19 07:39 36.8 C 90 18 142/82 H 97 12/11/19 07:18 89 12/11/19 03:49 36.7 C 90 18 132/71 96 12/11/19 00:42 97 H 12/10/19 23:47 37.2 C 99 H 20 131/75 93
--- NOTE | 2019-12-11 15:26 | Hospitalist Progress Note ---
Date of Service December 11, 2019 Assessment & Plan (1) Acute on chronic congestive heart failure: Presumed diastolic heart failure as his last EF was 60-65% in 2018. Exacerbation caused by dietary changes. Son has been living with him and his for the last month and orders/buys more high-sodium foods. - Continue Lasix 40 mg daily -> Lower to daily given his mild rise in Cr today. - Daily weights; I&Os - Discussed with Dr. Marsh who will have him follow up with an office PA next week. - Likely discharge tomorrow if feeling better. (2) DM type 2 (diabetes mellitus, type 2): HbA1c is 8.0% in 2018; 10.1% this admission. - Hold home dosing of metformin - Continue his usual Lantus 80 units at bedtime - NovoLog sliding scale - Blood sugars have been 150-260 in the last 24 hours. (3) Hypertension: BP presently 130/75. As high as 170/80 in the hospital. - Continue home lisinopril & verapamil; could raise dose of lisinopril if needed (4) Infection of prosthetic right knee joint: In 2019. Was seeing Dr. Vincent for monitoring. - Continue chronic Keflex, though he and are wondering if he still needs it as it's been about 1 1/2 years. - Will defer to outpatient physicians (5) Atrial fibrillation: Unclear if he has a history of this or not. I don't see mention of it on an PCP note from 2019. - Not on anticoagulation - Defer to his cardiology for this (6) DVT prophylaxis: SCDs - Low DVT risk per admission calculator Admission and Anticipated Discharge Date Admission Date: December 09, 2019 Subjective Feeling some better today, though still short of breath with exertion. Reports no fevers/chills, chest pain, shortness of breath at rest, abdominal pain, nausea, or vomiting. Physical Exam Constitutional: WD/WN, vitals as above Eyes: EOM intact bilaterally; no conjunctival abnormality ENMT: external ear and nose normal, oropharynx normal Neck: trachea midline, no thyromegaly normal visual inspection Respiratory: normal respiratory effort, lungs clear to auscultation no respiratory distress Cardiovascular: Rate/Rhythm: regular rate and regular rhythm Heart Sounds: normal S1 and normal S2 Extremities: + edema Gastrointestinal (Abdomen): Inspection/Auscultation: abdomen normal to inspection; abdomen not distended Musculoskeletal: no cyanosis or clubbing, extremities motor strength 5/5 Skin: no rashes, warm and dry Neurologic: moves all extremities and awake Psychiatric: Orientation: alert, oriented to person and cooperative Results & Data Results & Data ([facility]) Vital Signs (Past 12 Hours) Vital Signs Temp Pulse Pulse Pulse Resp BP Pulse Ox 12/11/19 15:13 36.7 C 100 H 20 128/74 95 12/11/19 12:00 36.7 C 99 H 20 127/70 96 12/11/19 07:39 36.8 C 90 18 142/82 H 97 12/11/19 07:18 89 12/11/19 03:49 36.7 C 90 18 132/71 96 PG Care Time/CCT Total # of Minutes Spent Total Time Spent with Patient: Total time spent is greater than 50% in coordination of care (as documented) at patient's floor/unit and/or counseling patient: Coding Level of Care Code 48139 Subseq Hosp Care Lvl 3 Diagnoses Acute on chronic congestive heart failure I50.9 DM type 2 (diabetes mellitus, type 2) E11.9 Hypertension I10 Infection of prosthetic right knee joint T84.53XA Atrial fibrillation I48.91 DVT prophylaxis Z29.9
[2019-12-11] MEDS: cephALEXin 500 MG CAP PO SCH (17:39)
[2019-12-11] MEDS: TRAZODONE HCL 50 MG TAB PO PRN (22:28)
[2019-12-11] MEDS: EZETIMIBE 10 MG TABLET PO SCH (22:29)
[2019-12-11] MEDS: INSULIN GLARGINE SOLOSTAR 100 UNITS/ML 3 ML PEN SC SCH (22:32)
[2019-12-12] MEDS ORDERED: METOPROLOL TARTRATE 1 MG/ML VIAL IV STA (00:24)
[2019-12-12] MEDS ORDERED: MELATONIN 3 MG TAB PO PRN (00:25)
--- NOTE | 2019-12-12 00:28 | Communication Note ---
Date of Service: December 12, 2019 Notified about 11:45pm that pt was having a "funny feeling" in his chest and some associated SOB. Given his Hx and noting that his Lasix dose was decreased today, a stat portable XR was ordered. It showed improvement. The telemetry room was contacted and it was noted that he has been in sinus rhythm with occasional rates >100. Earlier in the day it was noted that he was in sinus tachycardia with occasional PVCs. A one time dose of Lopressor 5mg ordered. Pt also requested melatonin to help with sleep. 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
[2019-12-12 05:54] LABS: Hematocrit (blood only) 37.5 % (42-52); Hemoglobin 12.4 g/dL (14.0-18.0); Mean Corpuscular Hemoglobin 29.3 pg (25-34); Mean Corpuscular Hgb Conc 33.1 g/dL (32-36); Mean Corpuscular Volume 88.7 fL (80-100); Mean Platelet Volume 10.9 fL (7.4-10.4); Platelet Count 280 K/uL (130-400); RDW Coefficient of Variation 13.7 % (11.5-14.5); RDW Standard Deviation 44.7 fL (36.4-46.3); Red Blood Count 4.23 M/uL (4.7-6.1); White Blood Count 7.32 K/uL (4.8-10.8)
[2019-12-12 06:30] LABS: BUN Creatinine Ratio 20.7 (10-20); Calcium 8.8 mg/dl (8.5-10.1); Creatinine Clr Calc Pharmacy 79.2 ml/min; Est GFR (African American) 68.2; Est GFR (Non-African American) 58.8; Magnesium 2.2 mg/dl (1.8-2.4); Potassium 3.9 mmol/L (3.5-5.1)
[2019-12-12] MEDS: cephALEXin 500 MG CAP PO SCH (07:50)
[2019-12-12] MEDS: GABAPENTIN 100 MG CAP PO SCH (07:50)
[2019-12-12] MEDS: VERAPAMIL HCL 120 MG TABCR PO SCH (07:51)
[2019-12-12] MEDS: BuPROPion XL 300 MG TABCR PO SCH (07:51)
[2019-12-12] MEDS: lisinopriL 5 MG TAB PO SCH (07:51)
[2019-12-12] MEDS: ASPIRIN 81 MG ECTAB PO SCH (07:51)
--- NOTE | 2019-12-12 07:52 | XRay Report ---
SINGLE VIEW CHEST CLINICAL HISTORY: Dyspnea. FINDINGS: An AP, portable, upright chest radiograph is compared to study dated 12/09/2019 and correlat ed with chest CT dated 01/01/2018. The examination is degraded by portable technique and patient rota tion. The heart is top normal for projection. The pulmonary vasculature is noncongested. Chronic inte rstitial thickening is noted. There is no airspace consolidation or large pleural effusion. No pneumo thorax is seen. The bony thorax is grossly intact. IMPRESSION: No acute cardiopulmonary abnormality. ACT 112: Negative or not required by law. Electronically signed by: Blaise iVnson M.D. 12/12/2019 7:50 AM
[2019-12-12] MEDS: INSULIN ASPART 100 UNITS/ML 3 ML PEN SC SCH ×2 (07:57→12:35)
[2019-12-12] MEDS ORDERED: FUROSEMIDE 40 MG in SYRINGE 0 ML IV SCH (09:00)
--- NOTE | 2019-12-12 14:46 | Discharge Summary ---
Date of Service December 12, 2019 Admission HPI Per Admitting Provider Casey Walker is a 54-year-old male who presents to the ER with chest pain shortness of breath. Principal Diagnosis CHF Discharge Exam Constitutional: WD/WN, vitals as above Eyes: EOM intact bilaterally; no conjunctival abnormality ENMT: external ear and nose normal, oropharynx normal Neck: trachea midline, no thyromegaly normal visual inspection Respiratory: normal respiratory effort, lungs clear to auscultation no respiratory distress Cardiovascular: Rate/Rhythm: regular rate and regular rhythm Heart Sounds: normal S1 and normal S2 Extremities: + edema Gastrointestinal (Abdomen): Inspection/Auscultation: abdomen normal to inspection; abdomen not distended Musculoskeletal: no cyanosis or clubbing, extremities motor strength 5/5 Skin: no rashes, warm and dry Neurologic: moves all extremities and awake Psychiatric: Orientation: alert, oriented to person and cooperative Discharge Data Allergies Allergy/AdvReac Type Severity Reaction Status Date / Time pneumococcal vaccine AdvReac Intermediate GI Verified 12/09/19 16:43 SYMPTOMS-OK IF MULTIPLE VACCINES GIVEN SEPARATELY tetanus toxoid, adsorbed AdvReac Intermediate TETANUS/DIPTHERIA/PERTUSSIS-GI Verified 12/09/19 16:43 UPSTE/BODY ACHES levofloxacin AdvReac Mild GI SYMPTOMS Verified 12/09/19 16:43 Consultations 12/09/19 15:40 ED Decision to Admit Stat Diabetes Follow up Diabetes Follow-up Needed for HgbA1c >9% Hospital Course (1) Acute on chronic congestive heart failure: Presumed diastolic heart failure as his last EF was 60-65% in 2018. Exacerbation caused by dietary changes. Son has been living with him and his for the last month and orders/buys more high-sodium foods. - Continue Lasix 40 mg daily -> Lower to daily given his mild rise in Cr today. - Daily weights; I&Os - Discussed with Dr. Marsh who will have him follow up with an office PA next week. - Patient reports feeling well. Ok to discharge (2) DM type 2 (diabetes mellitus, type 2): HbA1c is 8.0% in 2018; 10.1% this admission. - Hold home dosing of metformin - Continue his usual Lantus 80 units at bedtime - NovoLog sliding scale - Blood sugars have been 150-260 in the last 24 hours. (3) Hypertension: BP presently 130/75. As high as 170/80 in the hospital. - Continue home lisinopril & verapamil; could raise dose of lisinopril if needed (4) Infection of prosthetic right knee joint: In 2019. Was seeing Dr. Vincent for monitoring. - Continue chronic Keflex, though he and are wondering if he still needs it as it's been about 1 1/2 years. - Will defer to outpatient physicians (5) Atrial fibrillation: Unclear if he has a history of this or not. I don't see mention of it on an PCP note from 2019. - Not on anticoagulation - Defer to his cardiology for this (6) DVT prophylaxis: SCDs - Low DVT risk per admission calculator (7) Chest pain: Suspect pulmonary edema. - Troponins all < 0.015. (8) Acute hyperkalemia: Should improve with lasix use. (9) Obstructive sleep apnea syndrome: - Continue CPAP 12 cm H2O (10) Multiple transverse process fractures: Stable today. - Continue home gabapentin & oxycodone Total Time Total Time Spent Total Time Spent (In Minutes): 32 Total Time Includes: Examination of the Patient, Discharge Planning and Medication Reconciliation Discharge Plan Discharge Items Patient Disposition: Home - Self-Care Reason For Visit: ACUTE EXACERBATION DISTOLIC CONGESTIVE HEART FAIL Discharge Diagnosis: Acute diastolic heart failure Activity: Resume your previous activity Non-emergency contact: Primary Care Provider Call non-emergency contact if: you have any medication questions Follow-up/Referrals: Dino Johnson MD [Primary Care Provider] - Diet: Low Sodium (2gm) Addtl Attending Provider Instructions: Call 911 and go to the Emergency Room if: * You have tightness or pain in your chest that does not go away with rest or Nitroglycerin * You are very short of breath even with rest Call your doctor if any of the following symptoms or problems start or get worse: * Shortness of breath or difficulty breathing * Wake up at night short of breath * Chest pain * Cough * Swelling of your hands, fee, or legs * More fatigued or tired with your normal activity * Palpitations - sudden fast heart beats WEIGHT * Weigh yourself every morning after using the bathroom. * Use the same scale. * Wear the same amount of clothing. * Write your weight down on your chart. * Call your doctor if you gain more than 2-3 pounds in 1-2 days. MEDICATIONS * Use this discharge instruction sheet for instructions. * Take your medications at the time your doctor ordered. * Do not skip a dose of your medicines. * If you miss a dose of medicine, take as soon as possible, but DO NOT DOUBLE A DOSE. * Read your medicine information when you get home. * Know all of the side effects of your medicine. * Call your doctor's office if you have any side effects. * Be sure all of your doctors know what medicine and herbs you take (including cold, flu, and herbal medicine). * Pain Medicine: If you do not get relief from your pain, please call your doctor for help. Take the following with you to your follow-up doctor appointments: * Weight Chart * Medication List * List of questions Do not drink excessive alcohol, beer or wine. Pending Studies at Discharge: No Stand-Alone Forms: My [facility] [employer], Smoking Cessation Medications and DC Order Prescriptions: Continued aspirin [Adult Low Dose Aspirin] 81 mg tablet,delayed release (DR/EC) 81 mg PO DAILY RF: 0 verapamil 120 mg capsule,ext rel. pellets 24 hr 120 mg PO DAILY RF: 0 cephalexin [Keflex] 500 mg capsule 500 mg PO BID Qty: 60 RF: 6 Lantus Solostar U-100 Insulin 100 unit/mL (3 mL) Insulin Pen 80 unit SUBCUT PM RF: 0 gabapentin [Neurontin] 100 mg capsule 100 mg PO TID RF: 0 ezetimibe [Zetia] 10 mg tablet 10 mg PO PM RF: 0 bupropion HCl [Wellbutrin XL] 300 mg tablet extended release 24 hr 300 mg PO DAILY RF: 0 lisinopril 10 mg tablet 5 mg PO QAM RF: 0 metformin 1,000 mg Tablet 1,000 mg PO BIDM RF: 0 oxycodone 5 mg tablet 5 mg PO Q4H PRN (Reason: pain) Qty: 15 RF: 0 trazodone 50 mg tablet 50 mg PO HS PRN (Reason: Insomnia) RF: 0 furosemide 20 mg Tablet 20 mg PO QAM RF: 0 insulin aspart U-100 [Novolog Flexpen U-100 Insulin] 100 unit/mL insulin pen 0 unit subcut ACHS Qty: 0 RF: 0 Discharge Orders: Discharge Order (Routine); Ordered 12/12/19 Ordered By: Aniceto Martin Admission Data Admit Date/Time: 12/09/19 16:50 Attending Provider: Aniceto Martin Admit Provider: Sanjay Blackwood Primary Care Provider: Dino Johnson Other Providers: Navi Garvey ; Sanjay Blackwood Other Interventions: Discharge Summary Assessment (RN) Last Done: 12/12/19 14:33 Coding Level of Care Code D/C Day Management >30 mins Diagnoses Acute on chronic congestive heart failure I50.9 DM type 2 (diabetes mellitus, type 2) E11.9 Hypertension I10 Infection of prosthetic right knee joint T84.53XA Atrial fibrillation I48.91 DVT prophylaxis Z29.9 Chest pain R07.9 Chest pain type: unspecified Acute hyperkalemia E87.5 Obstructive sleep apnea syndrome G47.33 Multiple transverse process fractures
== END 2019-12-12 14:52 | disposition home or self-care (01) | DRG 293 ==
LOC: ED 14:25 → 1E 16:50 → SUATTDRO 16:50 → 1E 19:25 → 2N 12-10 18:00

== ENCOUNTER 2021-08-04 13:21 | Observation (INO) ==
[2021-08-04] MEDS ORDERED: SODIUM CHLORIDE 0.9% 500 ML IV ONE (14:16)
--- NOTE | 2021-08-04 14:46 | XRay Report ---
XR chest 2V PA/lateral HISTORY: Stroke symptoms. Altered mental status. COMPARISON: Chest 07/04/2021. FINDINGS: The lungs are clear. Cardiac silhouette is normal in size. No pleural effusions. No pneumot horax. IMPRESSION: No acute process. ACT 112: Negative or not required by law. Electronically signed by: Nilton Mchugh M.D. 08/04/2021 2:45 PM
[2021-08-04 14:53] LABS: Hematocrit (blood only) 39.2 % (42-52); Hemoglobin 12.7 g/dL (14.0-18.0); Mean Corpuscular Hemoglobin 29.5 pg (25-34); Mean Corpuscular Hgb Conc 32.4 g/dL (32-36); Mean Corpuscular Volume 91.2 fL (80-100); Mean Platelet Volume 10.9 fL (7.4-10.4); Platelet Count 298 K/uL (130-400); RDW Coefficient of Variation 13.7 % (11.5-14.5); White Blood Count 8.51 K/uL (4.8-10.8)
[2021-08-04 15:09] LABS: INR 1.2 (0.9-1.1); Partial Thromboplastin Ratio 1.1; Partial Thromboplastin Time 28.9 Seconds (21.0-31.0); Prothrombin Time 12.5 Seconds (9.0-12.0)
[2021-08-04 15:20] LABS: Albumin Globulin Ratio 1.4 (0.9-2); Albumin Level 4.2 gm/dl (3.4-5.0); BUN Creatinine Ratio 10.7 (10-20); Bilirubin,Total 0.5 mg/dl (0.2-1.0); Calcium 9.4 mg/dl (8.5-10.1); Creatinine Clr Calc Pharmacy 54.2 ml/min; Est GFR (African American) 45.2 ml/min; Globulin 3.1 gm/dl (2.5-4.0); Magnesium 2.4 mg/dl (1.7-2.4); Potassium 3.7 mmol/L (3.5-5.1); Total Protein 7.3 gm/dl (6.0-8.3)
--- NOTE | 2021-08-04 15:53 | CT Scan Report ---
CT OF THE ABDOMEN AND PELVIS WITHOUT CONTRAST CLINICAL HISTORY: Bilateral lower extremity edema. Renal failure. COMPARISON STUDY: CT of the abdomen and pelvis May 28, 2021. TECHNIQUE: Axial images of the abdomen and pelvis were obtained without IV contrast. Images were revi ewed in the axial, sagittal, and coronal planes. Automated exposure control was utilized for the seamus dy. A dose lowering technique was utilized adhering to the principles of ALARA. FINDINGS: Mild cardiomegaly is noted. Lung bases are unremarkable. No renal, ureteral or bladder calc maxim are present. There is no hydronephrosis or hydroureter. Evaluation of the remainder of the abdome n and pelvis is suboptimal on this unenhanced exam. Nodularity of the liver surface is unchanged. The re is no biliary or pancreatic ductal dilatation. Unenhanced images of the spleen, adrenal glands and pancreas are unremarkable. Moderate amount of stool within the colon is present. No evidence for a b owel obstruction. Appendix is unremarkable. There is no lymphadenopathy or ascites. No acute fracture or suspicious lesion within the visualized skeletal structures. Anterolisthesis of L5 on S1 is simil ar to prior exam with bilateral L5 pars defects. Bladder is moderately distended. Calcified peritone al bodies are incidentally noted. These are not acute. IMPRESSION: 1. No urinary calculi or hydronephrosis. Moderately distended bladder. 2. No bowel obstruction. No evidence for acute appendicitis. 3. No acute process within the abdomen or pelvis on unenhanced exam. ACT 112: Negative or not required by law. Electronically signed by: Davie Fitzgerald M.D. 08/04/2021 3:52 PM
--- NOTE | 2021-08-04 15:56 | CT Scan Report ---
HEAD CT NONCONTRAST CT DOSE: 884.08 mGy.cm HISTORY: ataxia, weakness TECHNIQUE: Multiaxial CT images of the head were performed without the use of intravenous contrast. A utomated exposure control was utilized for this study. A dose lowering technique was utilized adheri ng to the principles of ALARA. Comparison: Head CT 07/04/2021. Findings: The paranasal sinuses and mastoid air cells are clear. The calvarium and skull base are int act. There is no mass, hematoma, midline shift, acute infarct. White matter hypodensity is nonspecifi c but suggestive of microvascular ischemic change. The ventricles and sulci demonstrate mild age-rela andreina involutional changes. Old punctate lacunar infarcts again noted within the right basal ganglia an d left thalamus. Impression: No significant change compared to the prior study. No acute intracranial abnormality. ACT 112: Negative or not required by law. Electronically signed by: Nilton Mchugh M.D. 08/04/2021 3:55 PM
[2021-08-04 16:31] LABS: Troponin I High Sensitivity 13.8 pg/ml (0-20)
[2021-08-04 16:38] LABS: Phosphorus 2.8 mg/dl (2.5-4.9)
--- NOTE | 2021-08-04 16:44 | History & Physical Report ---
Date of Service August 04, 2021 Assessment & Plan (1) Frequent falls: Plan: - Ongoing for several weeks, 4 in last day. Unclear etiology, patient does have evidence of significant lumbar disease on MRI, notable medical comorbidities. However assoicated with memory loss and ataxic gait is concerning for neurologic cause. - Has been seen by neurology for workup, has been ordered initial labs, imaging which we will perform today: ammonia, TSH + free T4, UA, CRP, ESR, iron panel w/ ferritin, vit B12, HgbA1C, vit D, lyme Ab IgG and IgM w/WB Rflx, - CT head without acute findings, MRI w/o contrast for further evaluation. Cannot perform w/ contrast d/t renal function. - PT and OT to see pt tomorrow. -Routine neurology consult. (2) Ataxia: Plan: - As above. (3) Memory loss: Plan: - As above. (4) Acute diastolic congestive heart failure: Plan: - Last echo in 11/2019--> EF > 70%, no wall abnormalities, mild LVH. No significant valvular abnormalities. Normal RVSP. - Lasix 20 mg daily; reports worsening of chronic b/l LE edema over 2-3 days - Will update echo. (5) Hypertension: Plan: - Continue lisinopril, metoprolol, verapamil. (6) Hyperlipidemia: Plan: - Continue rosuvastatin, Zetia. (7) Depression: Plan: - Continue bupropion. (8) DM type 2 (diabetes mellitus, type 2): Plan: - Metformin, Farxiga, inuslin at home. Hold oral agents. - Home insulin regimen: - Insulin aspart 10 units ACHS. - Insulin glargine 50 units BID. - Accu-checks with SSI. - CC/low sodium diet. - A1c in AM. (9) Diabetic peripheral neuropathy associated with type 2 diabetes mellitus: Plan: - Continue gabapentin. (10) Sleep apnea: Plan: - CPAP at night. (11) GERD (gastroesophageal reflux disease): Plan: - Continue protonix. (12) History of infection of total joint prosthesis of knee: Plan: - In 2019, on chronic Keflex 500 BID. Plan: - OBS med/surg. - SCDs for DVT ppx. - Full Code. History of Present Illness Chief Complaint: multiple falls Primary Care Provider: Dino Johnson MD Mr. Berger is a 55-year-old male with a past medical history of hypertension, diabetes type 2 with peripheral neuropathy, hyperlipidemia, depression, JENNIFFER, HFpEF, and insomnia who comes in today with worsening ataxia over the past several days. Patient actually reports he has had short-term memory loss such as forgetting his last name and what he is doing mid task over the past year, and multiple falls per week over the past month or two. He saw his PCP saw him in office for this last month and referred him to neurology, who he had just seen yesterday. They had ordered a panel of labs and MRI for further evaluation. Patient states that with his falls he typically knows he is about to fall, it happens after standing and with his first initial steps, because he is unbalanced and initially moves very quickly, hard for him to coordinate his steps. He denies LOC or hitting his head or having pain elsewhere from his falls, they are not associated with chest pain, shortness of breath, palpitations, nausea, or diaphoresis. He denies personal or family history of Alzheimer's, Parkinson's, MS, CVA. Does not smoke or use illicit drugs, drinks occasionally, several times per month but not regularly. His falls have been more frequent over the past day, which prompted presentation for further evaluation today. In ED, he is borderline hypotensive 100/55, SBP now in 130s after IVF, otherwise vital signs within normal limits and stable. Labs significant for Hgb 12.7 (baseline), 0.7 (baseline), glucose 248. Head CT did not show mass, hematoma, midline shift, or acute infarct. No change when compared to prior study. CT A/P did not show acute process within the abdomen or pelvis. CXR showed no acute process. Allergies Allergy/AdvReac Type Severity Reaction Status Date / Time levofloxacin AdvReac Intermediate GI SYMPTOMS Verified 08/04/21 16:19 pneumococcal vaccine AdvReac Intermediate GI Verified 08/04/21 16:19 SYMPTOMS-OK IF MULTIPLE VACCINES GIVEN SEPARATELY tetanus toxoid, adsorbed AdvReac Intermediate TETANUS/DIPTHERIA/PERTUSSIS-GI Verified 08/04/21 16:19 UPSTE/BODY ACHES Home Medications Medication Instructions Recorded Confirmed Type bupropion HCl 300 mg 24 hr tablet, 300 mg PO QAM 12/05/17 08/04/21 History extended release (Wellbutrin XL) ezetimibe 10 mg tablet (Zetia) 10 mg PO QPM 12/05/17 08/04/21 History metformin 1,000 mg tablet 1,000 mg PO BIDM 12/05/17 08/04/21 History aspirin 81 mg tablet,delayed 81 mg PO QAM 04/02/18 08/04/21 History release (Adult Low Dose Aspirin) furosemide 20 mg tablet 20 mg PO QAM 12/09/19 08/04/21 History insulin aspart U-100 100 unit/mL 10 unit SUBCUT ACHS ml 01/28/20 08/04/21 History (3 mL) subcutaneous pen (Novolog Flexpen U-100 Insulin aspart) metoprolol tartrate 100 mg tablet 100 mg PO BID 03/22/20 08/04/21 History insulin glargine 100 unit/mL (3 50 unit SUBCUT BID ml 03/23/20 08/04/21 History mL) subcutaneous pen (Lantus Solostar U-100 Insulin) lisinopril 2.5 mg tablet 2.5 mg PO QAM 07/04/20 08/04/21 History pantoprazole 40 mg tablet,delayed 40 mg PO QAM 07/04/20 08/04/21 History release cephalexin 500 mg capsule 500 mg PO BID 07/04/21 08/04/21 History cyclobenzaprine 10 mg tablet 10 mg PO TID PRN 07/04/21 08/04/21 History dapagliflozin 10 mg tablet 10 mg PO QAM 07/04/21 08/04/21 History (Farxiga) gabapentin 300 mg capsule 300 mg PO TID 07/04/21 08/04/21 History ondansetron HCl 4 mg tablet 4 mg PO Q8H PRN 07/04/21 08/04/21 History rosuvastatin 40 mg tablet 40 mg PO DAILY 07/04/21 08/04/21 History verapamil 180 mg tablet,extended 180 mg PO QAM 07/04/21 08/04/21 History release Past Med/Surg History Medical History Anxiety and depression Attention deficit disorder (ADD) Bulging lumbar disc Cardiac murmur FOLLOWS WITH DR. GREENWOOD CHF (congestive heart failure) Diabetic peripheral neuropathy associated with type 2 diabetes mellitus DM type 2 (diabetes mellitus, type 2) GERD (gastroesophageal reflux disease) History of amputation of right great toe History of anemia History of kidney stones HTN (hypertension) Hx MRSA infection 2018> resolved Hx of diabetic foot ulcer Hyperlipidemia Osteoarthritis Sleep apnea CPAP Surgical History History of colonoscopy History of open reduction and internal fixation (ORIF) procedure RT HAND History of tooth extraction History of total left knee replacement History of wisdom tooth extraction S/P revision of total knee LEFT Family History Father Family history of diabetes mellitus Other No family history of adverse response to anesthesia No pertinent family history Social History Smoking Status: Never smoker Second Hand Exposure: No; Hx Alcohol Use: Yes Alcohol type: beer, wine and hard liquor Hx Substance Use: No Preferred Language: Algerian Communication Ability: Effective Visual Impairment: Limited [employer]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 Beliefs That Will Affect Care: None marital status: Current Living Situation: Spouse current occupational status: employed 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 How many Children do You have: 2 Feels Safe at Home: Yes during the past year weight has: remained stable Assistive Devices: Contacts, CPAP and Denture - Upper Review of Systems Review of Systems: Constitutional: generalized weakness ongoing for weeks; No fever/chills, fatigue, myalgias, anorexia, night sweats Eyes: No diplopia, no worsening or blurred vision ENT: normal hearing, no trouble swallowing Respiratory: No cough, sputum, dyspnea at rest or on exertion Cardiovascular: No chest pain, tightness or palpitations Abdomen: No pain, nausea, vomiting, diarrhea or constipation : Denies dysuria, hematuria, increased urgency/frequency, urinary retention Musculoskeletal: No joint pain, calf pain, swelling Neurologic: short term memory loss x 1 year, balance problems x several weeks; No focal weakness, numbness/tingling Psychiatric: No anxiety or depression Skin: No rash or itch Physical Exam Physical Exam: General: awake, alert, no apparent distress Head: Normocephalic, atraumatic ENT: PERRL, EOMI, no pharyngeal exudate, mucous membranes moist Chest: Clear to auscultation, on room air, no adventitious breath sounds Cardiac: Regular rate and rhythm, no murmur, no JVD, normal peripheral pulses, good capillary refill Abdominal: NABS x 4 quadrants, soft, nontender to palpation, no rebound, guarding or tenderness Extremities: b/l LE 3+ edema; no erythema, calfs nontender to palpation Psych: Normal mood and affect Neuro: wide gait, with an initial hurried, accelerated gait consistent with festination; AAO x 3, strength intact bilaterally and rated 5/5, speech is clear, no peripheral sensory deficits Skin: b/l brush burn like rash on b/l knees consistent with patient's report of crawling on rug today after fall Results & Data Results & Data ([facility]) Vital Signs (Past 12 Hours) Vital Signs Temp Pulse Pulse Resp BP BP Pulse Ox 08/04/21 14:48 69 18 100/55 L 100 08/04/21 13:34 36.9 C 72 18 135/76 100 Laboratory Results Abnormal lab results 08/04/21 08/04/21 08/04/21 Range/Units 14:28 14:28 14:28 RBC 4.30 L (4.7-6.1) M/uL Hgb 12.7 L (14.0-18.0) g/dL Hct 39.2 L (42-52) % MPV 10.9 H (7.4-10.4) fL PT 12.5 H (9.0-12.0) Seconds INR 1.2 H (0.9-1.1) Creatinine 1.87 H (0.6-1.4) mg/dl Glucose 248 H (70-99(Fasting)) mg/dl Diagnostic Findings Chest X-Ray 08/04/21 13:39 XR chest 2V PA/lateral HISTORY: Stroke symptoms. Altered mental status. COMPARISON: Chest 07/04/2021. FINDINGS: The lungs are clear. Cardiac silhouette is normal in size. No pleural effusions. No pneumothorax. IMPRESSION: No acute process. ACT 112: Negative or not required by law. Electronically signed by: Nilton Mchugh M.D. 08/04/2021 2:45 PM Abdomen/Pelvis CT 08/04/21 14:43 CT OF THE ABDOMEN AND PELVIS WITHOUT CONTRAST CLINICAL HISTORY: Bilateral lower extremity edema. Renal failure. COMPARISON STUDY: CT of the abdomen and pelvis May 28, 2021. TECHNIQUE: Axial images of the abdomen and pelvis were obtained without IV contrast. Images were reviewed in the axial, sagittal, and coronal planes. Automated exposure control was utilized for the study. A dose lowering technique was utilized adhering to the principles of ALARA. FINDINGS: Mild cardiomegaly is noted. Lung bases are unremarkable. No renal, ureteral or bladder calculi are present. There is no hydronephrosis or hydroureter. Evaluation of the remainder of the abdomen and pelvis is suboptimal on this unenhanced exam. Nodularity of the liver surface is unchanged. There is no biliary or pancreatic ductal dilatation. Unenhanced images of the spleen, adrenal glands and pancreas are unremarkable. Moderate amount of stool within the colon is present. No evidence for a bowel obstruction. Appendix is unremarkable. There is no lymphadenopathy or ascites. No acute fracture or suspicious lesion within the visualized skeletal structures. Anterolisthesis of L5 on S1 is similar to prior exam with bilateral L5 pars defects. Bladder is moderately distended. Calcified peritoneal bodies are incidentally noted. These are not acute. IMPRESSION: 1. No urinary calculi or hydronephrosis. Moderately distended bladder. 2. No bowel obstruction. No evidence for acute appendicitis. 3. No acute process within the abdomen or pelvis on unenhanced exam. ACT 112: Negative or not required by law. Electronically signed by: Davie Fitzgerald M.D. 08/04/2021 3:[address] 08/04/21 14:[address] DOSE: 884.08 mGy.cm HISTORY: ataxia, weakness TECHNIQUE: Multiaxial CT images of the head were performed without the use of intravenous contrast. Automated exposure control was utilized for this study. A dose lowering technique was utilized adhering to the principles of ALARA. Comparison: Head CT 07/04/2021. Findings: The paranasal sinuses and mastoid air cells are clear. The calvarium and skull base are intact. There is no mass, hematoma, midline shift, acute infarct. White matter hypodensity is nonspecific but suggestive of microvascular ischemic change. The ventricles and sulci demonstrate mild age-related involutional changes. Old punctate lacunar infarcts again noted within the right basal ganglia and left thalamus. Impression: No significant change compared to the prior study. No acute intracranial abnormality. ACT 112: Negative or not required by law. Electronically signed by: Nilton Mchugh M.D. 08/04/2021 3:55 PM ECG Additional Comments: Sinus rhythm with 1st degree A-V block Otherwise normal ECG When compared with ECG of 04-JUL-2021 17:13, No significant change was found. Code Status & VTE Plan Code Status Full Code. Supervising Physician Co-Signing Physician Notes Reviewed case with TORIBIO, reviewed notes, agree with the note above. Patient was seen by neurology yesterday, concern for possible movement disorder such as Parkinson's. Was ordered extensive lab work but has not yet had the opportunity to get this drawn. Return to the hospital today as he was having multiple falls along with some other neurological symptoms as described above. Patient to be admitted for further neurology work-up, including MRI. Labs to be drawn as previously recommended by neurology. We will consult them for further recommendations. PT/OT for ambulation and safety at home. May need to consider short-term rehab depending on progress. PG Care Time/CCT Total # of Minutes Spent Total Time Spent with Patient: Total time spent is greater than 50% in coordination of care (as documented) at patient's floor/unit and/or counseling patient: Coding Level of Care Code INT OBSERVATION CARE 70M LVL 3 Diagnoses Ataxia R27.0 Acute diastolic congestive heart failure I50.31 Hypertension I10 Hyperlipidemia E78.5 Depression F32.9 DM type 2 (diabetes mellitus, type 2) E11.9 Diabetic peripheral neuropathy associated with type 2 diabetes mellitus E11.42 Sleep apnea G47.30 Memory loss R41.3 Frequent falls R29.6 GERD (gastroesophageal reflux disease) K21.9 History of infection of total joint prosthesis of knee Z87.39
[2021-08-04] MEDS ORDERED: GLUCAGON FOR INJ 1 MG VIAL SQ PRN (21:24)
[2021-08-04] MEDS ORDERED: GLUCOSE 40% GEL 15 GM TUBE PO PRN (21:24)
[2021-08-04] MEDS ORDERED: DEXTROSE 50% 50 ML SYRINGE IV PRN (21:24)
[2021-08-04] MEDS ORDERED: POLYETHYLENE (MIRALAX) 17 GM PACK PO PRN (21:24)
[2021-08-04] MEDS ORDERED: ACETAMINOPHEN 325 MG TAB PO PRN (21:24)
[2021-08-04] MEDS ORDERED: CYCLOBENZAPRINE HCL 10 MG TAB PO PRN (21:24)
[2021-08-04] MEDS ORDERED: ONDANSETRON INJ 2 MG/ML 2 ML VIAL IV PRN (21:24)
[2021-08-04] MEDS ORDERED: GLUCOSE 10 TABS/TUBE PO PRN (21:24)
[2021-08-04] MEDS ORDERED: CARBOHYDRATES FOR HYPOGLYCEMIA PO PRN (21:24)
--- NOTE | 2021-08-04 22:49 | Emergency Department Note ---
Impression & Plan Ataxia, Ambulatory dysfunction, CKD (chronic kidney disease), Diabetic peripheral neuropathy associated with type 2 diabetes mellitus ED Provider Note NAME: KY LOMBARDI AGE: 55 SEX: M ARRIVES VIA: Walk-In INFORMANT: Patient ED PROVIDER(S): Carter Juárez MD CHIEF COMPLAINT: Ambulatory dysfunction/dizziness, referred. PLAN: Disposition: Admit MEDICAL DECISION MAKING: The patient is a pleasant 55-year-old gentleman with a past medical history of CKD, diastolic heart failure, uncontrolled type 2 diabetes with diabetic neuropathy who presents to the emergency department accompanied by his for evaluation of worsening generalized weakness and gait instability where he had several falls today. The patient was seen by his neurologist yesterday and per the patient's they were planning to have an MRI performed next week to evaluate for possible stroke but given his worsening symptoms today were referred to the emergency department when they called their neurology office. There was also concern that he may have worsening kidney function. Denies any cough, congestion, fevers, chills, vomiting or diarrhea. They report that his difficulty with walking and with his walker has become so severe it is difficult to function at home. They agree that physical therapy may be helpful. The patient is no distress, afebrile stable vital signs. He has dry mucous membranes but also he has 2+ bilateral lower extremity edema. EKG without overt acute ischemia. Chest x-ray negative for acute cardiopulmonary process. CT of the head and abdomen pelvis were performed and negative for acute findings WBC and platelets within normal limits. H/H12.7/39.2 similar to prior range of values. Chemistry without metabolic acidosis. Creatinine 1.8, within prior range of values in setting of CKD. Glucose 200s. Electrolytes and LFTs without significant abnormality. High-sensitivity troponin 30.8, within normal limits. Covid-19 RNA, NAAT negative. Given the patient's worsening ambulatory dysfunction with concern for his safety at home they do agree with plan for admission for further evaluation and possible placement. Case was discussed with ABE Manley PAC, with Dr. Yvan LONDON hospitalist who will evaluate the patient for admission. Triage Nursing notes reviewed and agree them. Prior medical records reviewed Vital Signs: reviewed and remarkable for no significant abnormalities Differential diagnosis: Infection, dehydration, metabolic abnormality, hypo/hyperglycemia, electrolyte disturbance, anemia, hypoxia, cardiac sources, intracerebral event, toxicologic, neurologic, as well as other pathologies. ER treatment provided: See below. Diagnostics interpreted by me: ECG: Sinus rhythm with first-degree AV block, 71 bpm, no ectopy, no overt ST elevation or depression, QTC 456, QRS 94 Cardiac Monitoring: An order for continuous cardiac monitoring was placed and demonstrated Sinus rhythm with first-degree AV block, 71 bpm, no ectopy. Laboratory studies: See below Imaging studies: See below Consultation(s): Case was discussed with Brooke Kc, ABE PAC, with Dr. Yvan LONDON hospitalist who will evaluate the patient for admission. HPI: The patient is a pleasant 55-year-old gentleman with a past medical history of CKD, diastolic heart failure, uncontrolled type 2 diabetes with diabetic neuropathy who presents to the emergency department accompanied by his for evaluation of worsening generalized weakness and gait instability where he had several falls today. The patient was seen by his neurologist yesterday and per the patient's they were planning to have an MRI performed next week to evaluate for possible stroke but given his worsening symptoms today were referred to the emergency department when they called their neurology office. There was also concern that he may have worsening kidney function. Denies any cough, congestion, fevers, chills, vomiting or diarrhea. They report that his difficulty with walking and with his walker has become so severe it is difficult to function at home. They agree that physical therapy may be helpful. ROS: See above HPI for pertinent positives & negatives. A total of 10 systems reviewed and were otherwise negative. VITALS:See Below PHYSICAL EXAMINATION: GENERAL: Awake, alert, well-appearing, in no distress HENT: Normocephalic, atraumatic. Oropharynx with dry mucous membranes and otherwise unremarkable. EYES: Normal conjunctiva. Sclera non-icteric. EOMI. No nystamgus. PEARRL. NECK: Supple. No nuchal rigidity. FROM. No JVD. RESPIRATORY: Clear to auscultation. CARDIAC: Regular rate, normal rhythm. Extremities warm and well perfused. Pulses equal. ABDOMEN: Soft, non-distended. No tenderness to palpation. No rebound or guarding. No masses. RECTAL: Deferred. MUSCULOSKELETAL: Chest examination reveals no tenderness. The back is symmetrical on inspection without obvious abnormality. There is no CVA tenderness to palpation. No joint edema. LOWER EXTREMITIES: Calves are equal size bilaterally and non-tender. 2+ BLE. No discoloration. NEURO: No sensory or motor deficits noted. 5/5 strength and SILT x 4 extremities. Cerebellar function intact including [id number], alternating palms, [id number]. SKIN: No rash or jaundice noted. Carter Juárez MD Past Med/Surg History Medical History Anxiety and depression Attention deficit disorder (ADD) Bulging lumbar disc Cardiac murmur FOLLOWS WITH DR. GREENWOOD CHF (congestive heart failure) Diabetic peripheral neuropathy associated with type 2 diabetes mellitus DM type 2 (diabetes mellitus, type 2) GERD (gastroesophageal reflux disease) History of amputation of right great toe History of anemia History of kidney stones HTN (hypertension) Hx MRSA infection 2018> resolved Hx of diabetic foot ulcer Hyperlipidemia Osteoarthritis Sleep apnea CPAP Surgical History History of colonoscopy History of open reduction and internal fixation (ORIF) procedure RT HAND History of tooth extraction History of total left knee replacement History of wisdom tooth extraction S/P revision of total knee LEFT Family History Father Family history of diabetes mellitus Other No family history of adverse response to anesthesia No pertinent family history Social History Smoking Status: Never smoker Second Hand Exposure: No; Hx Alcohol Use: No Hx Substance Use: No Preferred Language: Polish Communication Ability: Effective Visual Impairment: Limited Hand Alterations Tailor Required: No Beliefs That Will Affect Care: None marital status: Current Living Situation: Spouse current occupational status: employed current occupation: [employer] How many Children do You have: 2 Other Information That Helps Us Care for You: No Feels Safe at Home: Yes Safety Concerns: Feels Safe At This Time during the past year weight has: remained stable Assistive Devices: Glasses and Walker Assistive Devices Comment: patient uses walker at home Allergies Allergies Allergy/AdvReac Type Severity Reaction Status Date / Time levofloxacin AdvReac Intermediate GI SYMPTOMS Verified 08/04/21 16:19 pneumococcal vaccine AdvReac Intermediate GI Verified 08/04/21 16:19 SYMPTOMS-OK IF MULTIPLE VACCINES GIVEN SEPARATELY tetanus toxoid, adsorbed AdvReac Intermediate TETANUS/DIPTHERIA/PERTUSSIS-GI Verified 08/04/21 16:19 UPSTE/BODY ACHES Home Meds Home Medications Medication Instructions Recorded Confirmed bupropion HCl 300 mg 24 hr tablet, 300 mg PO QAM 12/05/17 08/04/21 extended release (Wellbutrin XL) ezetimibe 10 mg tablet (Zetia) 10 mg PO QPM 12/05/17 08/04/21 metformin 1,000 mg tablet 1,000 mg PO BIDM 12/05/17 08/04/21 aspirin 81 mg tablet,delayed 81 mg PO QAM 04/02/18 08/04/21 release (Adult Low Dose Aspirin) furosemide 20 mg tablet 20 mg PO QAM 12/09/19 08/04/21 insulin aspart U-100 100 unit/mL 10 unit SUBCUT ACHS ml 01/28/20 08/04/21 (3 mL) subcutaneous pen (Novolog Flexpen U-100 Insulin aspart) metoprolol tartrate 100 mg tablet 100 mg PO BID 03/22/20 08/04/21 insulin glargine 100 unit/mL (3 50 unit SUBCUT BID ml 03/23/20 08/04/21 mL) subcutaneous pen (Lantus Solostar U-100 Insulin) lisinopril 2.5 mg tablet 2.5 mg PO QAM 07/04/20 08/04/21 pantoprazole 40 mg tablet,delayed 40 mg PO QAM 07/04/20 08/04/21 release cephalexin 500 mg capsule 500 mg PO BID 07/04/21 08/04/21 cyclobenzaprine 10 mg tablet 10 mg PO TID PRN 07/04/21 08/04/21 dapagliflozin 10 mg tablet 10 mg PO QAM 07/04/21 08/04/21 (Farxiga) gabapentin 300 mg capsule 300 mg PO TID 07/04/21 08/04/21 ondansetron HCl 4 mg tablet 4 mg PO Q8H PRN 07/04/21 08/04/21 rosuvastatin 40 mg tablet 40 mg PO DAILY 07/04/21 08/04/21 verapamil 180 mg tablet,extended 180 mg PO QAM 07/04/21 08/04/21 release Results & Data (ED) Vital Signs Vital Signs - 24 hr 08/04/21 13:34 08/04/21 14:48 08/04/21 16:00 Temperature 36.9 C 36.8 C Temperature Source Temporal Artery Scan Oral Pulse Rate 72 Pulse Rate [Apical] 69 75 Respiratory Rate 18 18 18 Blood Pressure 135/76 Blood Pressure [Right Arm] 100/55 L 132/71 Blood Pressure Mean 95 Blood Pressure Mean [Right Arm] 70 91 Pulse Oximetry 100 100 100 Oxygen Delivery Method Room Air Room Air Sepsis Recent Fever Within 48 Hours No Sepsis New/Unexplained Change in Mental Status No Sepsis Action Taken by Nursing No Action Required Laboratory Data Attestation: I reviewed the patient's lab results. Result diagrams: 08/04/21 14:28 08/04/21 14:28 Lab Results 08/04/21 08/04/21 08/04/21 Range/Units 14:28 14:28 14:28 WBC 8.51 (4.8-10.8) K/uL RBC 4.30 L (4.7-6.1) M/uL Hgb 12.7 L (14.0-18.0) g/dL Hct 39.2 L (42-52) % MCV 91.2 (80-100) fL MCH 29.5 (25-34) pg MCHC 32.4 (32-36) g/dL RDW Std Deviation 45.0 (36.4-46.3) fL RDW Coeff of Monica 13.7 (11.5-14.5) % Plt Count 298 (130-400) K/uL MPV 10.9 H (7.4-10.4) fL PT 12.5 H (9.0-12.0) Seconds INR 1.2 H (0.9-1.1) APTT 28.9 (21.0-31.0) Seconds PTT Ratio 1.1 Sodium 137 (136-145) mmol/L Potassium 3.7 (3.5-5.1) mmol/L Chloride 105 (98-107) mmol/L Carbon Dioxide 23 (21-32) mmol/L Anion Gap 9 (3-11) BUN 20 (6-23) mg/dl Creatinine 1.87 H (0.6-1.4) mg/dl Est Cr Clr Drug Dosing 54.2 ml/min Est GFR ( Amer) 45.2 ml/min Est GFR (Non-Af Amer) 39.0 ml/min BUN/Creatinine Ratio 10.7 (10-20) Glucose 248 H (70-99(Fasting)) mg/dl Calcium 9.4 (8.5-10.1) mg/dl Phosphorus (2.5-4.9) mg/dl Magnesium 2.4 (1.7-2.4) mg/dl Total Bilirubin 0.5 (0.2-1.0) mg/dl AST 38 (13-39) U/L ALT 30 (7-52) U/L Alkaline Phosphatase 87 (34-104) U/L Troponin I High Sens (0-20) pg/ml Total Protein 7.3 (6.0-8.3) gm/dl Albumin 4.2 (3.4-5.0) gm/dl Globulin 3.1 (2.5-4.0) gm/dl Albumin/Globulin Ratio 1.4 (0.9-2) SARS-CoV-2, RNA, NAAT (NEGATIVE) 08/04/21 08/04/21 Range/Units 14:28 14:30 WBC (4.8-10.8) K/uL RBC (4.7-6.1) M/uL Hgb (14.0-18.0) g/dL Hct (42-52) % MCV (80-100) fL MCH (25-34) pg MCHC (32-36) g/dL RDW Std Deviation (36.4-46.3) fL RDW Coeff of Monica (11.5-14.5) % Plt Count (130-400) K/uL MPV (7.4-10.4) fL PT (9.0-12.0) Seconds INR (0.9-1.1) APTT (21.0-31.0) Seconds PTT Ratio Sodium (136-145) mmol/L Potassium (3.5-5.1) mmol/L Chloride (98-107) mmol/L Carbon Dioxide (21-32) mmol/L Anion Gap (3-11) BUN (6-23) mg/dl Creatinine (0.6-1.4) mg/dl Est Cr Clr Drug Dosing ml/min Est GFR ( Amer) ml/min Est GFR (Non-Af Amer) ml/min BUN/Creatinine Ratio (10-20) Glucose (70-99(Fasting)) mg/dl Calcium (8.5-10.1) mg/dl Phosphorus 2.8 (2.5-4.9) mg/dl Magnesium (1.7-2.4) mg/dl Total Bilirubin (0.2-1.0) mg/dl AST (13-39) U/L ALT (7-52) U/L Alkaline Phosphatase (34-104) U/L Troponin I High Sens 13.8 (0-20) pg/ml Total Protein (6.0-8.3) gm/dl Albumin (3.4-5.0) gm/dl Globulin (2.5-4.0) gm/dl Albumin/Globulin Ratio (0.9-2) SARS-CoV-2, RNA, NAAT NEGATIVE (NEGATIVE) Administered Medications Discontinued Medications Sodium Chloride (Nss) 500 mls @ 999 mls/hr IV .Q31M ONE Stop: 08/04/21 14:46 Last Infusion: 08/04/21 17:34 Dose: 0 mls/hr Documented by: [id number] Admin: 08/04/21 14:42 Dose: 999 mls/hr Documented by: [id number] Imaging Data Radiologist's Impression: Chest X-Ray 08/04/21 13:39 XR chest 2V PA/lateral HISTORY: Stroke symptoms. Altered mental status. COMPARISON: Chest 07/04/2021. FINDINGS: The lungs are clear. Cardiac silhouette is normal in size. No pleural effusions. No pneumothorax. IMPRESSION: No acute process. ACT 112: Negative or not required by law. Electronically signed by: Nilton Mchugh M.D. 08/04/2021 2:45 PM Abdomen/Pelvis CT 08/04/21 14:43 CT OF THE ABDOMEN AND PELVIS WITHOUT CONTRAST CLINICAL HISTORY: Bilateral lower extremity edema. Renal failure. COMPARISON STUDY: CT of the abdomen and pelvis May 28, 2021. TECHNIQUE: Axial images of the abdomen and pelvis were obtained without IV contrast. Images were reviewed in the axial, sagittal, and coronal planes. Automated exposure control was utilized for the study. A dose lowering technique was utilized adhering to the principles of ALARA. FINDINGS: Mild cardiomegaly is noted. Lung bases are unremarkable. No renal, ure teral or bladder calculi are present. There is no hydronephrosis or hydroureter. Evaluation of the remainder of the abdomen and pelvis is suboptimal on this unenhanced exam. Nodularity of the liver surface is unchanged. There is no biliary or pancreatic ductal dilatation. Unenhanced images of the spleen, adrenal glands and pancreas are unremarkable. Moderate amount of stool within the colon is present. No evidence for a bowel obstruction. Appendix is unremarkable. There is no lymphadenopathy or ascites. No acute fracture or suspicious lesion within the visualized skeletal structures. Anterolisthesis of L5 on S1 is similar to prior exam with bilateral L5 pars defects. Bladder is moderately distended. Calcified peritoneal bodies are incidentally noted. These are not acute. IMPRESSION: 1. No urinary calculi or hydronephrosis. Moderately distended bladder. 2. No bowel obstruction. No evidence for acute appendicitis. 3. No acute process within the abdomen or pelvis on unenhanced exam. ACT 112: Negative or not required by law. Electronically signed by: Davie Fitzgerald M.D. 08/04/2021 3:[address] 08/04/21 14:[address] DOSE: 884.08 mGy.cm HISTORY: ataxia, weakness TECHNIQUE: Multiaxial CT images of the head were performed without the use of intravenous contrast. Automated exposure control was utilized for this study. A dose lowering technique was utilized adhering to the principles of ALARA. Comparison: Head CT 07/04/2021. Findings: The paranasal sinuses and mastoid air cells are clear. The calvarium and skull base are intact. There is no mass, hematoma, midline shift, acute infarct. White matter hypodensity is nonspecific but suggestive of microvascular ischemic change. The ventricles and sulci demonstrate mild age-related involutional changes. Old punctate lacunar infarcts again noted within the right basal ganglia and left thalamus. Impression: No significant change compared to the prior study. No acute intracranial abnormality. ACT 112: Negative or not required by law. Electronically signed by: Nilton Mchugh M.D. 08/04/2021 3:55 PM Discharge Plan Visit Data Chief Complaint: Neuro Symptoms/Deficit Stated Complaint: KIDNEY ISSUES, POSSIBLE STROKE, REFERRED BY DR VAZQUEZ Provider: Carter Juárez Discharge Problem: Ataxia, Ambulatory dysfunction, CKD (chronic kidney disease), Diabetic peripheral neuropathy associated with type 2 diabetes mellitus Patient Disposition: Admitted As Inpatient Discharge Instructions Interventions: ED Discharge Assessment Last Done: 08/04/21 19:50 Discharge Problem: CKD (chronic kidney disease) Qualifiers: Chronic kidney disease stage: unspecified stage Qualified Code(s): N18.9 - Chronic kidney disease, unspecified
--- NOTE | 2021-08-04 22:50 | Electrocardiogram Report ---
Test Reason : Blood Pressure : / mmHG Vent. Rate : 071 BPM Atrial Rate : 071 BPM P-R Int : 212 ms QRS Dur : 094 ms QT Int : 420 ms P-R-T Axes : 037 -06 022 degrees QTc Int : 456 ms Sinus rhythm with 1st degree A-V block Otherwise normal ECG When compared with ECG of 04-JUL-2021 17:13, No significant change was found Confirmed by Amilcar Graff ([id number]) on 08/04/2021 10:50:08 PM Referred By: REFERRED SELF Confirmed By:Amilcar Graff
[2021-08-04] MEDS: INSULIN ASPART PER UNIT SC SCH (22:52)
[2021-08-04] MEDS: INSULIN GLARGINE SOLOSTAR 100 UNITS/ML 3 ML PEN SQ SCH (22:52)
[2021-08-04] MEDS: EZETIMIBE 10 MG TABLET PO SCH (22:54)
[2021-08-04] MEDS: GABAPENTIN 300 MG CAP PO SCH (22:54)
[2021-08-04] MEDS: cephALEXin 500 MG CAP PO SCH (22:54)
[2021-08-04] MEDS: METOPROLOL TARTRATE 100 MG TAB PO SCH (22:55)
[2021-08-04 23:28] LABS: Appearance Urine Clear (Clear); Bacteria Urine Automated Negative (Negative); Bilirubin Urine Negative (Negative); Blood Urine 1+ (Negative); Cast Urine Automated 0 /lpf (0-5); Color Urine Yellow; Glucose Urine UA 3+ (Negative); Ketones Urine Negative (Negative); Leukocyte Esterase Urine Negative (Negative); Nitrite Urine Negative (Negative); Protein Urine 1+ (Negative); RBC Urine Automated 0-4 /hpf (0-4); Specific Gravity Urine 1.018 (1.000-1.030); Urobilinogen Urine Negative (Negative); WBC Urine Automated 0 /hpf (0-5); pH Urine 7.5 (4.5-7.5)
[2021-08-05 06:33] LABS: C Reactive Protein < 0.50 mg/dl (0-0.5); Iron 56 mcg/dl (35-175); Total Iron Binding Cap Calc 330 mcg/dl (250-450); Transferrin (FE) Percent Satur 17 % (20-50); Unsaturated Iron Binding Cap 274 mcg/dl (155-355)
[2021-08-05 07:01] LABS: Vitamin D, 25 Hydrox 11.3 ng/ml (30-100)
[2021-08-05 07:10] LABS: Lyme Ab IgG w/WB Rflx Negative (Negative); Lyme Ab IgM w/WB Rflx Negative (Negative)
[2021-08-05 07:46] LABS: Estimated Average Glucose 223 mg/dl; Hemoglobin A1C 9.4 % (4.5-5.6)
--- NOTE | 2021-08-05 08:32 | Magnetic Resonance Report ---
Brain MRI WITHOUT CONTRAST HISTORY: ataxia, falls, memory loss TECHNIQUE: Multiplanar multisequence MRI of the brain was performed without the use of contrast. COMPARISON STUDY: Head CT 08/04/2021. Brain MRI 11/09/2020. FINDINGS: There is no mass, hematoma, midline shift, or acute infarct. The paranasal sinuses are beverly r. The mastoid air cells are clear. The ventricles and sulci demonstrate mild age-related involutiona l changes. Scattered foci of T2 hyperintensity seen within the periventricular and subcortical white matter are nonspecific but suggestive of moderate microvascular ischemic changes. The major vascular flow voids at the skull base are well-maintained. Old punctate lacunar infarct seen within the right basal ganglia and left thalamus. IMPRESSION: No acute intracranial abnormality and no significant change compared to the prior study. Scattered fo ci of T2 hyperintensity seen within the periventricular and subcortical white matter are nonspecific but favor moderate microvascular ischemic change. Lyme disease, a demyelinating disease, or a vasculi tis could also have a similar appearance but are considered less likely. ACT 112: Negative or not required by law. Electronically signed by: Nilton Mchugh M.D. 08/05/2021 8:30 AM
--- NOTE | 2021-08-05 08:34 | Hospitalist Progress Note ---
Date of Service August 05, 2021 Assessment & Plan (1) Frequent falls: Plan: Ongoing for several weeks, 4 on day of admission Patient with diabetes and neuropathy. Sugars poorly controlled with A1c of 9.4% MRI of the brain shows microvascular disease. No acute infarct. No evidence of NPH. There was question of demyelination which could represent microvascular disease versus inflammatory process versus vasculitis (ESR/CRP WNL, Lyme IgM/IgG neg) Suspect multifactorial: Microvascular disease, diabetic neuropathy, B12 deficiency Lengthy discussion with patient regarding the importance of good glycemic control Patient with old MRI of the spine showing canal stenosis. No current reports of loss of bowel or bladder function, back pain, or radicular symptoms; however, may be playing a role Awaiting PT/OT eval. From a medical standpoint, patient may be discharged home. May benefit from short-term rehab which she is agreeable to (2) Ataxia: Plan: - Likely a result of neuropathy and B12 deficiency TSH: 1.64 CRP: <0.50 ESR: 43 Iron: 56 B12: 174 A1c: 9.4 Vitamin D: 11.4 Lyme IgM/IgG: Negative (3) B12 deficiency: Plan: Start cyanocobalamin. 1000 mcg given today. Spoke with neurology who recommends weekly injections X2 then monthly injections X2 while concurrently on oral cyanocobalamin then oral only Will need follow-up B12 level in 3 months (4) Vitamin D deficiency: Plan: Start oral supplementation with follow-up labs in 3 months (5) Cerebral microvascular disease: Plan: Continue aspirin and Crestor Obtain lipid panel in the a.m. (6) Memory loss: Plan: Likely a result of B12 deficiency May have a component of vascular dementia Did discuss with neurology potentially adding Aricept. We will hold off for now. Will need to follow-up with neurology as an outpatient. May consider this addition in the future Ammonia level normal (7) Acute diastolic congestive heart failure: Plan: - Last echo in 11/2019--> EF > 70%, no wall abnormalities, mild LVH. No significant valvular abnormalities. Normal RVSP. - Lasix 20 mg daily; reports worsening of chronic b/l LE edema over 2-3 days - TTE orderedpending - We will refrain from increasing Lasix (given renal dysfunction) as he is not in fulminant CHF. May have venous insufficiency. May benefit from compression stockings (8) CKD (chronic kidney disease): Plan: Creatinine at baseline--1.8. Baseline seems to be 1.6-2.1 Lengthy discussion with patient regarding the importance of good glycemic control Would avoid nephrotoxic medications Okay to continue lisinopril/metformin for now but with close monitoring of his renal function. If continues to uptrend, may consider discontinuation of these medicationsat discretion of PCP (9) Hypertension: Plan: - Continue lisinopril, metoprolol, verapamil. (10) Hyperlipidemia: Plan: - Continue rosuvastatin, Zetia. (11) Depression: Plan: - Continue bupropion. (12) DM type 2 (diabetes mellitus, type 2): Plan: - Metformin, Farxiga, inuslin at home. Hold oral agents. - Home insulin regimen: - Insulin aspart 10 units ACHS. - Insulin glargine 50 units BID. - Accu-checks with SSI. - CC/low sodium diet. - A1c = 9.4% - lengthy discussion with patient regarding the importance of good glycemic control. He vocalizes understanding. Follow-up with PCP regarding this (13) Diabetic peripheral neuropathy associated with type 2 diabetes mellitus: Plan: - Increase gabapentin to 600 mg twice daily (14) Sleep apnea: Plan: - CPAP at night. (15) GERD (gastroesophageal reflux disease): Plan: - Continue protonix. (16) History of infection of total joint prosthesis of knee: Plan: - In 2019, on chronic Keflex 500 BID for suppression Plan: -Awaiting PT/OT eval and recommendations -Plan for likely discharge tomorrow with home health if therapy believes this to be reasonable. Patient may warrant a short rehab stay -Plan of care discussed with neurology - updated at bedside Admission and Anticipated Discharge Date Admission Date: August 04, 2021 Subjective Patient seen on daily rounds today. Hospitalized last evening given her recurrent frequent falls and ongoing memory loss. Symptoms progressive over the past several months. Seen recently by PCP and referred to neurology. Neurological exam done in 08/03/2021 (however note still in draft form). Labs and MRI ordered; however, prior to these being completedpatient had 3 falls prompting him to seek medical attention. Patient lives with his . 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 Has been struggling with short term memory. Reports, will go to the garage to retrieve a tool for his son and when he gets there, can not remember what he was to get. Does report a family h/o Dementia In addition, has been having multiple falls. No LOC. Denies dizziness/lighth eadedness or near syncope. Will be walking and "just goes down". Does have neuropathy. Will occasionally use an ambulatory device but not "as often as he should". Denies drinking ETOH or illicit drug use. Denies loss of bowel of bladder function. report mild intention but no resting tremor. Review of Systems Review of Systems: All systems reviewed and are unremarkable except as noted in HPI and below Denies fevers, chills, headache, nasal congestion, sore throat, cough, chest pain, shortness of breath, palpitations, orthopnea, PND, abdominal pain, nausea, vomiting, diarrhea, constipation, dysuria, hematuria, frequency, back pain, joint pain or swelling, easy bruising or bleeding, skin lesions or rashes. Physical Exam Physical Exam: General: Resting comfortably in his hospital bed. NAD. HEENT: Head is AT/NC. Buccal mucosa is moist and pink Neck: No JVD. Negative hepatojugular reflex Cardiac: RRR without M/G/R Lungs: CTA without W/R/R Abdomen: Normoactive X4. Soft and nontender in all quadrants. Extremities: No peripheral clubbing cyanosis or edema Neuro: A&O X4. Cranial nerves II through XII are grossly intact. No focal neuro deficits. Unable to differentiate sharp versus dull to bilateral feet. In addition, unable to differentiate up/down (proprioception not intact) Skin: No obvious skin lesions or rashes Psych: Appropriate affect. Pleasant and cooperative Results & Data Results & Data ([facility]) Vital Signs (Past 12 Hours) Vital Signs Temp Pulse Pulse Resp BP BP Pulse Ox 08/05/21 07:29 36.7 C 64 16 124/78 96 08/05/21 03:19 68 98 08/05/21 00:15 70 97 08/04/21 22:42 36.7 C 68 18 127/74 99 08/04/21 20:35 36.7 C 68 18 133/64 100 Laboratory Results 08/04/21 14:28 08/04/21 14:28 PG Care Time/CCT Total # of Minutes Spent Total Time Spent with Patient: Total time spent is greater than 50% in coordination of care (as documented) at patient's floor/unit and/or counseling patient: Coding Level of Care Code 26601 Subseq Obs Care Lvl 3 Diagnoses Frequent falls R29.6 Ataxia R27.0 Memory loss R41.3 Acute diastolic congestive heart failure I50.31 Hypertension I10 Hyperlipidemia E78.5 Depression F32.9 DM type 2 (diabetes mellitus, type 2) E11.9 Diabetic peripheral neuropathy associated with type 2 diabetes mellitus E11.42 Sleep apnea G47.30 GERD (gastroesophageal reflux disease) K21.9 History of infection of total joint prosthesis of knee Z87.39 B12 deficiency E53.8 Vitamin D deficiency E55.9 Cerebral microvascular disease I67.89 CKD (chronic kidney disease) N18.9
[2021-08-05] MEDS: METOPROLOL TARTRATE 100 MG TAB PO SCH ×2 (08:42→21:04)
[2021-08-05] MEDS: GABAPENTIN 300 MG CAP PO SCH ×2 (08:43→21:04)
[2021-08-05] MEDS: cephALEXin 500 MG CAP PO SCH ×2 (08:43→21:04)
[2021-08-05] MEDS: FUROSEMIDE 20 MG TAB PO SCH (08:44)
[2021-08-05] MEDS: PANTOprazole 40 MG TAB PO SCH (08:44)
[2021-08-05] MEDS: ROSUVASTATIN CALCIUM 20 MG TAB PO SCH (08:45)
[2021-08-05] MEDS: VERAPAMIL HCL 180 MG TABCR PO SCH (08:45)
[2021-08-05] MEDS: ASPIRIN 81 MG ECTAB PO SCH (08:46)
[2021-08-05] MEDS: buPROPion XL 300 MG TABCR PO SCH (08:46)
[2021-08-05] MEDS: INSULIN ASPART PER UNIT SC SCH ×4 (09:00→21:09)
[2021-08-05] MEDS ORDERED: lisinopril 2.5 MG TAB PO SCH (09:00)
[2021-08-05] MEDS: INSULIN GLARGINE SOLOSTAR 100 UNITS/ML 3 ML PEN SQ SCH ×2 (09:01→21:04)
[2021-08-05] MEDS ORDERED: CYANOCOBALAMIN 1000 MCG/ML VIAL IM SCH (12:15)
[2021-08-05] MEDS ORDERED: CHOLECALCIFEROL 1,000 UNITS 25 MCG TAB PO SCH (12:15)
[2021-08-05] MEDS ORDERED: ERGOCALCIFEROL 50,000 UNITS 1250 MCG CAP PO SCH (13:15)
--- NOTE | 2021-08-05 13:19 | Neurology Consultation ---
Date of Consultation August 05, 2021 Assessment & Plan (1) Sensory ataxic gait: (2) Memory loss: (3) Neuropathy: (4) Cerebral microvascular disease: (5) Vitamin D deficiency: (6) B12 deficiency: (7) Lumbar spinal stenosis: This patient has had subacute onset of neurologic symptoms consistent with short-term memory and concentration problems and balance /gait issues. The patient has longstanding diabetes and diabetic polyneuropathy but he seems to have more of a sensory ataxic gait now. Vitamin B12 deficiency can give cognitive problems as well as sensory ataxia from posterior column neuropathy. This significant B12 deficiency, on top of a longstanding diabetic with polyneuropathy and chronic cerebral ischemia, would affect the patient much greater than without diabetic issues. Patient has low back pain and lumbar spinal stenosis. Recommendations: 1. replace B12 with 1000 micrograms IM or subcu, once a week for 2-3 weeks, then once a month for several months, then continue oral replacement daily 2. Replace vitamin-D with 13757 units of vitamin D3 weekly for 3 months then recheck vitamin-D. 3. Continue 81 milligram aspirin tablet daily. 4. Control glucose bringing his hemoglobin A1c down from 9.4 to closer to 7 initially. 5. physical and occupational therapy. 6. Follow-up with neurology PA (VALENTIN) in 2-3 weeks. Overall I spent a total of 75 minutes with this case including review of records, review of MRI films, direct evaluation of the patient at bedside, and discussion of the case with the patient and RN at bedside and Shelby Rojas, including differential diagnosis and treatment options. History of Present Illness Reason for Consultation: Patient is a 55-year-old, who I was asked to see at the request of Dr. Santoro, or neurologic consultation regarding balance problems, weakness, and memory issues. Requesting Physician: Dr. Santoro Attending Physician: Navi Garvey MD History of Present Illness Patient has a history of type 2 diabetes of a relatively uncontrolled nature with diabetic polyneuropathy. There is a history of hypertension and some diastolic congestive heart failure without a history of [place] or stroke. He has been on 81 milligram aspirin tablet daily. Patient tells me that he has been having new symptoms over the last 4 months which started somewhat insidiously and have been progressive over this time. prior to this he had no new medications, acute illness or head trauma. Patient noted short-term memory problems which have been getting a little bit worse. Long-term has remained intact. His balance is been gradually worse any falls particularly over the last month. He can get a vertiginous feeling if he gets up quick and when he sitting he does not have that sensation. When he gets up he does does not seem to sense the ground and can drag his feet causing him to fall. He says he has been very clumsy. He has had chronic low back pain and some gluteal pain but no pain or numbness in his arms or legs. He has no new tingling, incontinence, vision issues, or headache.He denies tremor. Patient saw Monica Durbin PA-C on August 03, as an outpatient in [facility], at the request of his PCP for these issues. A number of studies were ordered but because of increased falling he came to the emergency room August 04. He arrived August 04 at 1334 with a temperature 36.9, pulse 72 and regular, respiratory rate 18, blood pressure 135/76, and O2 saturation 100. Examination revealed no focal deficits or ataxia. There was mild anemia on CBC and a sed rate was 43. CRP was quite normal at less than 0.5. Creatinine was mildly elevated at 1.87, glucose of 248, but the rest of the metabolic profile was normal. Ammonia and TSH were unremarkable. B12 was low at 174. Vitamin-D was markedly low at 11.3. Chest x-ray was unremarkable. CT scan of the abdomen pelvis was unremarkable. CT scan of the head showed no acute changes MRI of the brain showed no acute stroke and no changes compared to previous imaging in October 2020. was moderate old small vessel ischemia still. MRI of the lumbar spine revealed multilevel degenerative changes of disc in bone with spinal stenosis particularly at L1-2. There was spondylolisthesis at L5 on S1. I reviewed all the MRI films. Allergies Allergy/AdvReac Type Severity Reaction Status Date / Time levofloxacin AdvReac Intermediate GI SYMPTOMS Verified 08/04/21 16:19 pneumococcal vaccine AdvReac Intermediate GI Verified 08/04/21 16:19 SYMPTOMS-OK IF MULTIPLE VACCINES GIVEN SEPARATELY tetanus toxoid, adsorbed AdvReac Intermediate TETANUS/DIPTHERIA/PERTUSSIS-GI Verified 08/04/21 16:19 UPSTE/BODY ACHES Home Medications Medication Instructions Recorded Confirmed Type bupropion HCl 300 mg 24 hr tablet, 300 mg PO QAM 12/05/17 08/04/21 History extended release (Wellbutrin XL) ezetimibe 10 mg tablet (Zetia) 10 mg PO QPM 12/05/17 08/04/21 History metformin 1,000 mg tablet 1,000 mg PO BIDM 12/05/17 08/04/21 History aspirin 81 mg tablet,delayed 81 mg PO QAM 04/02/18 08/04/21 History release (Adult Low Dose Aspirin) furosemide 20 mg tablet 20 mg PO QAM 12/09/19 08/04/21 History insulin aspart U-100 100 unit/mL 10 unit SUBCUT ACHS ml 01/28/20 08/04/21 History (3 mL) subcutaneous pen (Novolog Flexpen U-100 Insulin aspart) metoprolol tartrate 100 mg tablet 100 mg PO BID 03/22/20 08/04/21 History insulin glargine 100 unit/mL (3 50 unit SUBCUT BID ml 03/23/20 08/04/21 History mL) subcutaneous pen (Lantus Solostar U-100 Insulin) lisinopril 2.5 mg tablet 2.5 mg PO QAM 07/04/20 08/04/21 History pantoprazole 40 mg tablet,delayed 40 mg PO QAM 07/04/20 08/04/21 History release cephalexin 500 mg capsule 500 mg PO BID 07/04/21 08/04/21 History cyclobenzaprine 10 mg tablet 10 mg PO TID PRN 07/04/21 08/04/21 History dapagliflozin 10 mg tablet 10 mg PO QAM 07/04/21 08/04/21 History (Farxiga) gabapentin 300 mg capsule 300 mg PO TID 07/04/21 08/04/21 History ondansetron HCl 4 mg tablet 4 mg PO Q8H PRN 07/04/21 08/04/21 History rosuvastatin 40 mg tablet 40 mg PO DAILY 07/04/21 08/04/21 History verapamil 180 mg tablet,extended 180 mg PO QAM 07/04/21 08/04/21 History release Patient History Medical History Anxiety and depression Attention deficit disorder (ADD) Bulging lumbar disc Cardiac murmur FOLLOWS WITH DR. FRAGIN CHF (congestive heart failure) Diabetic peripheral neuropathy associated with type 2 diabetes mellitus DM type 2 (diabetes mellitus, type 2) GERD (gastroesophageal reflux disease) History of amputation of right great toe History of anemia History of kidney stones HTN (hypertension) Hx MRSA infection 2018> resolved Hx of diabetic foot ulcer Hyperlipidemia Osteoarthritis Sleep apnea CPAP Surgical History History of colonoscopy History of open reduction and internal fixation (ORIF) procedure RT HAND History of tooth extraction History of total left knee replacement History of wisdom tooth extraction S/P revision of total knee LEFT Family History Father Family history of diabetes mellitus Other No family history of adverse response to anesthesia No pertinent family history Social History (Updated 08/05/21 @ 13:02 by Jared Licona MD) Smoking Status: Never smoker Second Hand Exposure: No; Hx Alcohol Use: No Hx Substance Use: No Preferred Language: Estonian Communication Ability: Effective Visual Impairment: Limited Paste Worker Required: No Beliefs That Will Affect Care: None marital status: Current Living Situation: Spouse current occupational status: employed 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 , 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 How many Children do You have: 2 Other Information That Helps Us Care for You: No Feels Safe at Home: Yes Safety Concerns: Feels Safe At This Time during the past year weight has: remained stable Assistive Devices: Glasses and Walker Assistive Devices Comment: patient uses walker at home Review of Systems Constitutional: + fever, + fatigue and + weakness Eyes: no diplopia, no eye pain and no worsening vision Ear, Nose, Mouth, Throat: + dizziness; no ear pain, no tinnitus, no hearing loss, no hoarseness and no dysphagia Respiratory: no cough and no dyspnea Cardiovascular: no chest pain, no palpitations and no lightheadedness Gastrointestinal: no abdominal pain, no nausea and no vomiting Musculoskeletal: + back pain; no neck pain, no radicular pain, no joint pain and no myalgia Integumentary: no rash and no lesions Neurologic: + gait abnormality and + memory loss; no localized weakness, no generalized weakness, no tingling, no numbness, no tremor(s), no abnormal movements, no headache(s), no abnormal speech and no confusion Psychiatric: no depression, no irritability, no anxiety, no difficulty concentrating, no confusion and no hallucinations Endocrine: no fatigue and no flushing Hematologic / Lymphatic: no easy bleeding and no easy bruising Allergy / Immunological: no urticaria and no problem reported Exam (Neuro) Physical Exam: The patient is right-handed. The patient is awake, alert, and attentive. Speech is normal without any aphasia or dysarthria. The patient can name objects, repeat phrases, and has normal spontaneous speech. Mentation and thought processes are intact, with orientation to person, place and time, and normal fund of knowledge. Attention and concentration are normal. Mood and affect are normal and appropriate. General appearance and grooming are normal. Short and long-term memory are intact to conversation. Pupils are 4 mm bilaterally and reactive to light. Extraocular eye muscles are intact without nystagmus. Visual acuity and visual garrett seem normal grossly to confrontation. There are no deficits to sensation in the face in all 3 distributions of the fifth cranial nerve bilaterally. Corneal reflexes are positive bilaterally. Facial strength and symmetry was normal bilaterally. Hearing seems normal bilaterally. Palate moves well without asymmetry. There is normal sternocleidomastoid and trapezius (shoulder shrug) strength bilaterally. Tongue is midline with good strength bilaterally. Neck has a full range of motion without discomfort. There are no cervical bruits bilaterally. There are no cranial or ocular bruits. Heart is without murmur. There is a regular rhythm and rate. Cervical, thoracic, and lumbar spine are nontender to palpation. Gait is narrow based and very slow and cautious. Turns are very cautious as well. With outstretched arms there is no drift. There are no resting, postural, or action tremors. There is no ataxia with finger to nose testing. There is decreased facility in the hands bilaterally.. No other abnormal involuntary movements are noted. Motor strength is 5/5 diffusely in the arms bilaterally including deltoids, biceps, triceps, brachioradialis, wrist flexors and extensors, plug drill operator, and intrinsic hand muscles. Motor strength is 5/5 diffusely in the legs bilaterally including hip flexors, quadriceps, hamstrings, gastrocnemius, tibialis anterior, tibialis posterior, and Peroneii muscles. Toe extensors are normal and there is good bulk in the extensor digitorum brevis muscles bilaterally. The limbs have good tone without rigidity or spasticity. There is no atrophy noted in the muscles. Muscle bulk is normal, there is no tenderness to palpatio n, no myotonia to percussion, and no fasciculations seen. Sensory examination reveals decrease pin touch and vibration in a stocking distribution. Reflexes are 0/4 in the biceps, triceps, brachioradialis, quadriceps, and Achilles tendons bilaterally. There is no clonus bilaterally. Toes are downgoing with plantar stimulation bilaterally. Peripheral pulses are present and of normal quality distally in all 4 limbs. There is no peripheral edema noted in the limbs. Results & Data ([facility]) Vital Signs (Past 12 Hours) Vital Signs Temp Pulse Pulse Resp BP BP Pulse Ox 08/05/21 11:17 70 113/70 08/05/21 08:41 68 149/83 H 08/05/21 07:29 36.7 C 64 16 124/78 96 08/05/21 03:19 68 98 PG Care Time/CCT Total # of Minutes Spent Total Time Spent with Patient: Total time spent is greater than 50% in coordination of care (as documented) at patient's floor/unit and/or counseling patient: Coding Level of Care Code 59280 Office/Outpt Visit, Est Diagnoses Sensory ataxic gait R26.0 Memory loss R41.3 Neuropathy G62.9 Cerebral microvascular disease I67.89 Vitamin D deficiency E55.9 B12 deficiency E53.8 Lumbar spinal stenosis M48.061 Time Spent (min) 75
[2021-08-05] MEDS ORDERED: CYANOCOBALAMIN 1000 MCG/ML VIAL IM STA (14:14)
[2021-08-05 17:38] LABS: Amphetamines+Metham, Urine Neg (Neg); Barbiturates, Urine Neg (Neg); Benzodiazepine, Urine Neg (Neg); Cocaine, Urine Neg (Neg); MDMA (Ecstacy), Urine Pos (Neg); Methadone, Urine Neg (Neg); Opiate, Urine Neg (Neg); Phencyclidine, Urine Neg (Neg)
[2021-08-05] MEDS ORDERED: DONEPEZIL HCL 5 MG TAB PO SCH (21:00)
[2021-08-05] MEDS ORDERED: ATORVASTATIN 40 MG TAB PO SCH (21:00)
[2021-08-05] MEDS: EZETIMIBE 10 MG TABLET PO SCH (21:04)
[2021-08-06 07:29] LABS: BUN Creatinine Ratio 12.8 (10-20); Calcium 9.2 mg/dl (8.5-10.1); Creatinine Clr Calc Pharmacy 55.3 ml/min; Est GFR (African American) 47.7 ml/min; Est GFR (Non-African American) 41.1 ml/min; Potassium 3.7 mmol/L (3.5-5.1)
[2021-08-06] MEDS: METOPROLOL TARTRATE 100 MG TAB PO SCH (08:24)
[2021-08-06] MEDS: GABAPENTIN 300 MG CAP PO SCH (08:26)
[2021-08-06] MEDS: VERAPAMIL HCL 180 MG TABCR PO SCH (08:27)
[2021-08-06] MEDS: cephALEXin 500 MG CAP PO SCH (08:27)
[2021-08-06] MEDS: ASPIRIN 81 MG ECTAB PO SCH (08:28)
[2021-08-06] MEDS: buPROPion XL 300 MG TABCR PO SCH (08:28)
[2021-08-06] MEDS: FUROSEMIDE 20 MG TAB PO SCH (08:29)
[2021-08-06] MEDS: ROSUVASTATIN CALCIUM 20 MG TAB PO SCH (08:29)
[2021-08-06] MEDS: PANTOprazole 40 MG TAB PO SCH (08:30)
[2021-08-06] MEDS: INSULIN ASPART PER UNIT SC SCH ×2 (08:37→12:31)
[2021-08-06] MEDS: INSULIN GLARGINE SOLOSTAR 100 UNITS/ML 3 ML PEN SQ SCH (08:38)
[2021-08-06] MEDS ORDERED: lisinopril 2.5 MG TAB PO SCH (09:00)
[2021-08-06] MEDS ORDERED: CYANOCOBALAMIN (B-12) 500 MCG TABLET PO SCH (09:00)
[2021-08-06] MEDS ORDERED: ASPIRIN 81 MG ECTAB PO SCH (09:00)
--- NOTE | 2021-08-06 13:47 | Discharge Summary ---
Date of Service August 06, 2021 Admission HPI Per Admitting Provider Mr. Berger is a 55-year-old male with a past medical history of hypertension, diabetes type 2 with peripheral neuropathy, hyperlipidemia, depression, JENNIFFER, HFpEF, and insomnia who comes in today with worsening ataxia over the past several days. Patient actually reports he has had short-term memory loss such as forgetting his last name and what he is doing mid task over the past year, and multiple falls per week over the past month or two. He saw his PCP saw him in office for this last month and referred him to neurology, who he had just seen yesterday. They had ordered a panel of labs and MRI for further evalu ation. Patient states that with his falls he typically knows he is about to fall, it happens after standing and with his first initial steps, because he is unbalanced and initially moves very quickly, hard for him to coordinate his steps. He denies LOC or hitting his head or having pain elsewhere from his falls, they are not associated with chest pain, shortness of breath, palpitations, nausea, or diaphoresis. He denies personal or family history of Alzheimer's, Parkinson's, MS, CVA. Does not smoke or use illicit drugs, drinks occasionally, several times per month but not regularly. His falls have been more frequent over the past day, which prompted presentation for further evaluation today. In ED, he is borderline hypotensive 100/55, SBP now in 130s after IVF, otherwise vital signs within normal limits and stable. Labs significant for Hgb 12.7 (baseline), 0.7 (baseline), glucose 248. Head CT did not show mass, hematoma, midline shift, or acute infarct. No change when compared to prior study. CT A/P did not show acute process within the abdomen or pelvis. CXR showed no acute process. Principal Diagnosis 1. Sensory ataxic gait w/ frequent falls 2. Memory loss 3. Peripheral neuropathy 4. Vitamin B12 Deficiency 5. Vitamin D Deficiency 6. Lumbar spinal stenosis Discharge Exam GENERAL: 55 yo well-developed, well-nourished WM. NAD. LUNGS: Clear to auscultation bilaterally. No W/R/R. CARDIOVASCULAR: Regular rate and rhythm. ABDOMEN: Soft, non-tender and non-distended. BS normal x 4 quad. EXTREMITIES: Non-tender. 1+ edema b/l LE. Peripheral pulses +2/4. NEUROLOGIC: A&O x3. No focal neurological deficits. CN II-XII grossly intact. Proprioception not intact. Change in sensation (unable to differentiate sharp v dull) PSYCHIATRIC: Cooperative. Appropriate mood and affect. SKIN: Warm, dry, intact. No rashes or lesions. Discharge Data Allergies Allergy/AdvReac Type Severity Reaction Status Date / Time levofloxacin AdvReac Intermediate GI SYMPTOMS Verified 08/04/21 16:19 pneumococcal vaccine AdvReac Intermediate GI Verified 08/04/21 16:19 SYMPTOMS-OK IF MULTIPLE VACCINES GIVEN SEPARATELY tetanus toxoid, adsorbed AdvReac Intermediate TETANUS/DIPTHERIA/PERTUSSIS-GI Verified 08/04/21 16:19 UPSTE/BODY ACHES Consultations 08/04/21 16:28 ED Decision to Admit Stat 08/04/21 21:24 Consult Neurology Routine Ordered Studies Chest X-Ray 08/04/21 13:39 XR chest 2V PA/lateral HISTORY: Stroke symptoms. Altered mental status. COMPARISON: Chest 07/04/2021. FINDINGS: The lungs are clear. Cardiac silhouette is normal in size. No pleural effusions. No pneumothorax. IMPRESSION: No acute process. ACT 112: Negative or not required by law. Electronically signed by: Nilton Mchugh M.D. 08/04/2021 2:45 PM Abdomen/Pelvis CT 08/04/21 14:43 CT OF THE ABDOMEN AND PELVIS WITHOUT CONTRAST CLINICAL HISTORY: Bilateral lower extremity edema. Renal failure. COMPARISON STUDY: CT of the abdomen and pelvis May 28, 2021. TECHNIQUE: Axial images of the abdomen and pelvis were obtained without IV contrast. Images were reviewed in the axial, sagittal, and coronal planes. Automated exposure control was utilized for the study. A dose lowering technique was utilized adhering to the principles of ALARA. FINDINGS: Mild cardiomegaly is noted. Lung bases are unremarkable. No renal, ureteral or bladder calculi are present. There is no hydronephrosis or hydroureter. Evaluation of the remainder of the abdomen and pelvis is suboptimal on this unenhanced exam. Nodularity of the liver surface is unchanged. There is no biliary or pancreatic ductal dilatation. Unenhanced images of the spleen, adrenal glands and pancreas are unremarkable. Moderate amount of stool within the colon is present. No evidence for a bowel obstruction. Appendix is unremarkable. There is no lymphadenopathy or ascites. No acute fracture or suspicious lesion within the visualized skeletal structures. Anterolisthesis of L5 on S1 is similar to prior exam with bilateral L5 pars defects. Bladder is moderately distended. Calcified peritoneal bodies are incidentally noted. These are not acute. IMPRESSION: 1. No urinary calculi or hydronephrosis. Moderately distended bladder. 2. No bowel obstruction. No evidence for acute appendicitis. 3. No acute process within the abdomen or pelvis on unenhanced exam. ACT 112: Negative or not required by law. Electronically signed by: Davie Fitzgerald M.D. 08/04/2021 3:[address] 08/04/21 14:[address] DOSE: 884.08 mGy.cm HISTORY: ataxia, weakness TECHNIQUE: Multiaxial CT images of the head were performed without the use of intravenous contrast. Automated exposure control was utilized for this study. A dose lowering technique was utilized adhering to the principles of ALARA. Comparison: Head CT 07/04/2021. Findings: The paranasal sinuses and mastoid air cells are clear. The calvarium and skull base are intact. There is no mass, hematoma, midline shift, acute infarct. White matter hypodensity is nonspecific but suggestive of microvascular ischemic change. The ventricles and sulci demonstrate mild age-related involutional changes. Old punctate lacunar infarcts again noted within the right basal ganglia and left thalamus. Impression: No significant change compared to the prior study. No acute intracranial abnormality. ACT 112: Negative or not required by law. Electronically signed by: Nilton Mchugh M.D. 08/04/2021 3:55 PM Brain MRI 08/04/21 18:30 Brain MRI WITHOUT CONTRAST HISTORY: ataxia, falls, memory loss TECHNIQUE: Multiplanar multisequence MRI of the brain was performed without the use of contrast. COMPARISON STUDY: Head CT 08/04/2021. Brain MRI 11/09/2020. FINDINGS: There is no mass, hematoma, midline shift, or acute infarct. The paranasal sinuses are clear. The mastoid air cells are clear. The ventricles and sulci demonstrate mild age-related involutional changes. Scattered foci of T2 hyperintensity seen within the periventricular and subcortical white matter are nonspecific but suggestive of moderate microvascular ischemic changes. The major vascular flow voids at the skull base are well-maintained. Old punctate lacunar infarct seen within the right basal ganglia and left thalamus. IMPRESSION: No acute intracranial abnormality and no significant change compared to the prior study. Scattered foci of T2 hyperintensity seen within the periventricular and subcortical white matter are nonspecific but favor moderate microvascular ischemic change. Lyme disease, a demyelinating disease, or a vasculitis could also have a similar appearance but are considered less likely. ACT 112: Negative or not required by law. Electronically signed by: Nilton Mchugh M.D. 08/05/2021 8:30 AM Diabetes Follow up Diabetes Follow-up Needed for HgbA1c >9% Hospital Course (1) Frequent falls: Ongoing for several weeks, 4 on day of admission Patient with diabetes and neuropathy. Sugars poorly controlled with A1c of 9.4% MRI of the brain shows microvascular disease. No acute infarct. No evidence of NPH. There was question of demyelination which could represent microvascular disease versus inflammatory process versus vasculitis (ESR/CRP WNL, Lyme IgM/IgG neg) Suspect multifactorial: Microvascular disease, diabetic neuropathy, B12 deficiency Lengthy discussion with patient regarding the importance of good glycemic control Patient with old MRI of the spine showing canal stenosis. No current reports of loss of bowel or bladder function, back pain, or radicular symptoms; however, may be playing a role PT/OT consulted, apparently pt not seen by OT but has been seen by PT who felt that pt could possibly benefit from stay in rehab but could also go home with therapy. D/w pt this morning, he is motivated, self aware, and would like to try rehab as an outpatient. He is able to drive himself and his works long hours (6a-6p) thus in-home pt/ot will be needed. Case management notified to assist in arranging this. * Pt does live in a two story home with but lives on one story (2) Ataxia: - Likely a result of neuropathy and B12 deficiency TSH: 1.64 CRP: <0.50 ESR: 43 Iron: 56 B12: 174 A1c: 9.4 Vitamin D: 11.4 Lyme IgM/IgG: Negative (3) B12 deficiency: Start cyanocobalamin. 1000 mcg given today. Spoke with neurology who recommends weekly injections X2 then monthly injections X2 while concurrently on oral cyanocobalamin then oral only Will need follow-up B12 level in 3 months (4) Vitamin D deficiency: Start oral supplementation with follow-up labs in 3 months (5) Cerebral microvascular disease: Continue aspirin and Crestor Obtain lipid panel in the a.m. (6) Memory loss: Likely a result of B12 deficiency May have a component of vascular dementia Did discuss with neurology potentially adding Aricept. We will hold off for now. Will need to follow-up with neurology as an outpatient. May consider this addition in the future Ammonia level normal (7) Acute diastolic congestive heart failure: - Last echo in 11/2019--> EF > 70%, no wall abnormalities, mild LVH. No significant valvular abnormalities. Normal RVSP. - Lasix 20 mg daily; reports worsening of chronic b/l LE edema over 2-3 days - TTE orderedLVEF 60-65%, no wma, mild AR, normal RVSP, grade I diastolic dysfunction - We will refrain from increasing Lasix (given renal dysfunction) as he is not in fulminant CHF. May have venous insufficiency. May benefit from compression stockings (8) CKD (chronic kidney disease): Creatinine at baseline--1.8. Baseline seems to be 1.6-2.1 Lengthy discussion with patient regarding the importance of good glycemic control Would avoid nephrotoxic medications Okay to continue lisinopril/metformin for now but with close monitoring of his renal function. If continues to uptrend, may consider discontinuation of these medicationsat discretion of PCP (9) Hypertension: - Continue lisinopril, metoprolol, verapamil. (10) Hyperlipidemia: - Continue rosuvastatin, Zetia. (11) Depression: - Continue bupropion. (12) DM type 2 (diabetes mellitus, type 2): - Metformin, Farxiga, inuslin at home. Hold oral agents. - Home insulin regimen: - Insulin aspart 10 units ACHS. - Insulin glargine 50 units BID. - Accu-checks with SSI. - CC/low sodium diet. - A1c = 9.4% - lengthy discussion with patient regarding the importance of good glycemic control. He vocalizes understanding. Follow-up with PCP regarding this (13) Diabetic peripheral neuropathy associated with type 2 diabetes mellitus: - Increase gabapentin to 600 mg twice daily, prescription sent to pharmacy (14) Sleep apnea: - CPAP at night. (15) GERD (gastroesophageal reflux disease): - Continue protonix. (16) History of infection of total joint prosthesis of knee: - In 2019, on chronic Keflex 500mg BID for suppression Patient Total Time Total Time Spent Total Time Spent (In Minutes): <30 minutes Discharge Plan Discharge Items Patient Disposition: Home - Home Health Services Reason For Visit: FREQUENT FALLS AT HOME Discharge Diagnosis: Frequent falls Activity: Resume your previous activity Non-emergency contact: Primary Care Provider Call non-emergency contact if: you have any medication questions and your symptoms worsen Follow-up/Referrals: Dino Johnson MD [Primary Care Provider] - Diet: Carb Consistent or DM2 Addtl Attending Provider Instructions: You were hospitalized due to frequent falls which was felt to be related to balance/gait issues. You were found to be extremely deficient in vitamin B12 as well as vitamin D. In addition, with your longstanding history of diabetes and lower extremity neuropathy, this was also felt to be playing a role. You were seen in consult by neurology, Dr. Licona, who advised treatment for your vitamin deficiencies and outpatient follow up in the neurology office with Tiffanie Durbin PA-C in 2 weeks. You were given a vitamin B12 1000 mcg injection which will need to be continued on a weekly basis x2 more doses. A prescription has been sent to your pharmacy, please take these injections to your primary care physician's office and they will administer them there. You will be due for your next injection on Saturday, August 11, 2021. Please call your doctors office ahead of time to determine what time you should come to the office. You have also been started on vitamin D supplementation. It is recommended that you take one 50,000 unit capsule once a week for the next 3 months. At that time a vitamin D level will need to be rechecked. This will either be ordered by your PCP or neurology. Your gabapentin has also been increased to 600 mg twice a day. A new prescription has been sent to your pharmacy for this. In terms of your diabetes, you will need to follow-up closely with your primary care physician in order to optimize your glycemic management. The goal of your hemoglobin A1c needs to be closer to 7%. Your hemoglobin A1c that was checked during this hospitalization was at 9.4%. In addition to medications, diet is of utmost importance. Ensure that you are keeping your complex carbohydrate intake to a minimum and incorporate fresh vegetables and lean protein into each meal. Physical and occupational therapy was consulted during your hospitalization. They advised either discharge to [facility] facility where you could do inpatient physical rehabilitation or participating in physical and occupational therapy as an outpatient. You have requested to participate in therapy as an outpatient. Subsequently, you will be discharged home with your and we will arrange for in-home PT/OT. It is strongly recommended that you follow up with your family doctor within 1 week of discharge, or sooner if needed. In the event that you have any questions or concerns, please contact the nonemergency number listed on your discharge paperwork. In the event of a medical emergency, call 911. Pending Studies at Discharge: No Stand-Alone Forms: My [facility] [place], Smoking Cessation Medications and DC Order Prescriptions: New ergocalciferol (vitamin D2) 1,250 mcg (50,000 unit) Capsule 50,000 unit PO Sa@0900 Qty: 4 RF: 1 gabapentin 600 mg tablet 600 mg PO BID Qty: 60 RF: 0 cyanocobalamin (vitamin B-12) 1,000 mcg/mL kit 1,000 mcg subcut .weekly 14 Days Qty: 1 RF: 1 Continued aspirin [Adult Low Dose Aspirin] 81 mg tablet,delayed release (DR/EC) 81 mg PO QAM RF: 0 metoprolol tartrate 100 mg tablet 100 mg PO BID RF: 0 insulin aspart U-100 [Novolog Flexpen U-100 Insulin] 100 unit/mL (3 mL) insulin pen 10 unit subcut ACHS RF: 0 Lantus Solostar U-100 Insulin 100 unit/mL (3 mL) insulin pen 50 unit SUBCUT BID RF: 0 ezetimibe [Zetia] 10 mg tablet 10 mg PO QPM RF: 0 bupropion HCl [Wellbutrin XL] 300 mg tablet extended release 24 hr 300 mg PO QAM RF: 0 metformin 1,000 mg Tablet 1,000 mg PO BIDM RF: 0 furosemide 20 mg Tablet 20 mg PO QAM RF: 0 pantoprazole 40 mg Tablet,Delayed Release (Dr/Ec) 40 mg PO QAM RF: 0 lisinopril 2.5 mg Tablet 2.5 mg PO QAM RF: 0 ondansetron HCl 4 mg Tablet 4 mg PO Q8H PRN (Reason: NAUSEA/VOMITING) RF: 0 verapamil 180 mg Tablet Extended Release 180 mg PO QAM RF: 0 Farxiga 10 mg Tablet 10 mg PO QAM RF: 0 cyclobenzaprine 10 mg Tablet 10 mg PO TID PRN (Reason: MUSCLE SPASMS) RF: 0 cephalexin 500 mg capsule 500 mg PO BID RF: 0 rosuvastatin 40 mg Tablet 40 mg PO DAILY RF: 0 Discontinued gabapentin 300 mg Capsule 300 mg PO TID RF: 0 Discharge Orders: Discharge Order (Routine); Ordered 08/06/21 Ordered By: Alicja Kim/Other Patient Handouts: Vitamin B-12, Vitamin D, Managing Type 2 Diabetes, Special Foot Care for Diabetes Admission Data Admit Date/Time: 08/04/21 17:53 Attending Provider: Navi Garvey Admit Provider: Cuauhtemoc Santoro Primary Care Provider: Dino Johnson Other Providers: Jared Licona ; Navi Garvey ; [facility] Other Interventions: Discharge Summary Assessment (RN) Last Done: 08/06/21 13:53 Supervising Physician Co-Signing Physician Notes I supervised Alicja Noriega PA-C on the care of this patient. I interviewed and examined the patient independently of her. The plan is as written in her note except for any following changes/exceptions: None Doing better today. Seems more steady when discussed with PT. He feels better and would like to go home. Will continue to get B12 injections via his PCP and take high-dose vitamin D supplement. He is having some urinary urgency/incontinence as well today per the RN. There was some concern for NPH with him. His MRI "cannot exclude" NPH per radiology as he does have larger ventricles, but also has significant atrophy. I discussed this with the evaluating neurologist who felt that we should treat the B12 and vitamin D deficiencies first and re-evaluate. If his confusion & gait issues have resolved, NPH is unlikely. If they have not, then could consider further work-up. We will reach out to Shelby Garvey (director telehealth) tomorrow to help confirm prompt neurology follow-up. Coding Level of Care Code 95442 OBS Care - Discharge Diagnoses Frequent falls R29.6 Ataxia R27.0 B12 deficiency E53.8 Vitamin D deficiency E55.9 Cerebral microvascular disease I67.89 Memory loss R41.3 Acute diastolic congestive heart failure I50.31 CKD (chronic kidney disease) N18.9 Hypertension I10 Hyperlipidemia E78.5 Depression F32.9 DM type 2 (diabetes mellitus, type 2) E11.9 Diabetic peripheral neuropathy associated with type 2 diabetes mellitus E11.42 Sleep apnea G47.30 GERD (gastroesophageal reflux disease) K21.9 History of infection of total joint prosthesis of knee Z87.39 Home Health Attestation I certify that this patient is under my care and that I, or a physicians assistant track and field coach working with me, had a face to-face encounter that meets the home health [id number] encounter requirements with this patient. The encounter with the patient was in whole, or in part, for the following medical condition, which is the primary reason for home health care (list medical condition): I certify that, based on my findings, the following services are medically necessary home health services: My clinical findings support the need for the above services because: Further, I certify that my clinical findings support that this patient is homebound (i.e. absences from home require considerable and taxing effort and are for medical reasons or holiness services or infrequently or of short duration when for other reasons) because: Certification for Home Health Services: Based on the above findings, I certify that this patient is confined to the home and needs intermittent fci care, physical therapy and/or speech therapy or continues to need occupational therapy. The patient is under my care, and I have initiated the establishment of the plan of care. This patient will be followed by a physician who will periodically review the plan of care.
[2021-08-08 23:46] LABS: Methyl Alcohol Comment SERUM/PLASMA; Methyl Alcohol Level NONE DETECTED (NONE DETECTED)
[2021-08-11 05:50] LABS: MDA negative; MDEA negative; MDMA (Ecstasy) Urine, Confirm negative
== END 2021-08-06 14:50 | disposition home health service (06) ==
LOC: ED 13:21 → 3W 13:21 → SUATTDRO 17:53 → 3W 19:50
DX: Z79.01 Long term (current) use of anticoagulants; I67.89 Other cerebrovascular disease; I50.31 Acute diastolic (congestive) heart failure; E78.5 Hyperlipidemia, unspecified; R29.6 Repeated falls; E11.42 Type 2 diabetes mellitus with diabetic polyneuropathy; G47.30 Sleep apnea, unspecified; Z79.899 Other long term (current) drug therapy; Z79.82 Long term (current) use of aspirin; E55.9 Vitamin D deficiency, unspecified; R41.3 Other amnesia; F32.9 Major depressive disorder, single episode, unspecified; Z79.84 Long term (current) use of oral hypoglycemic drugs; N18.9 Chronic kidney disease, unspecified; E53.8 Deficiency of other specified B group vitamins; R27.0 Ataxia, unspecified; Z79.4 Long term (current) use of insulin; K21.9 Gastro-esophageal reflux disease without esophagitis; Z87.39 Personal history of other diseases of the musculoskeletal system and connective tissue; I13.0 Hypertensive heart and chronic kidney disease with heart failure and stage 1 through stage 4 chronic kidney disease, or unspecified chronic kidney disease

== ENCOUNTER 2021-12-31 09:59 | Inpatient (IN) ==
--- NOTE | 2021-12-31 11:12 | Emergency Department Note ---
Impression & Plan Cellulitis, Falls, Fatigue, Leg swelling ED Provider Note NAME: KY LOMBARDI AGE: 56 SEX: M : 1965 ARRIVES VIA: Walk-In INFORMANT: Patient, ED PROVIDER(S): Shai Barnhart MD Chief Complaint: Knee pain and swelling, falls HPI: Patient presents due to concern for history of about 5 falls over the last 7 to 10 days with associated worsening left knee pain and leg swelling. The patient's son is at bedside states that he is witnessed to the falls and believes that he has been falling backwards. Unsure as whether or not the patient struck his head. Patient has had increasing sleepiness but does not take any blood thinning medications. They did think that this may have been secondary to a history of hyperglycemia but his sugars been in the 170s which is fairly good for him. No chest pains or shortness of breath. They did notice increasing swelling of the left knee and has had a prior TKA about 5 or 6 years ago. Patient is compliant with medications. No reported fevers head or neck pain numbness tingling or focal weakness. Patient does suffer from neuropathy. ROS: See HPI for pertinent positives and negatives. A total of 10 systems were reviewed and otherwise negative. Past medical history: See below Surgical history: See below Social history: See below Physical Exam: GENERAL: NAD, wearing a mask, non-toxic. Wearing glasses, opens eyes to voice. EYE EXAM: Normal conjunctiva. PERRL, no anisocoria and EOM's grossly intact w/o pain. NECK: Supple, no nuchal rigidity, no adenopathy, non-tender. No signs of meningismus. FROM of the neck with good chin to chest and neck extension. No stridor. LUNGS: Clear to auscultation. Normal chest wall mechanics. HEART: NSR, no MRG. ABDOMEN: Abdomen soft, non-tender, normo-active bowel sounds, no masses, no rebound or guarding. BACK: No CVA TTP. SKIN: No rashes and no bruising. UPPER EXTREMITIES: Upper extremities are grossly normal. Abrasion to right posterior elbow with associated eschar, no obvious deformity or TTP, neurovasc ular intact distally. LOWER EXTREMITIES: Grossly normal, left greater than right lower extremity swe lling with associated calor with mild erythema distal to the left knee, no obvious erythema overlying the left knee, well-perfused. Compartments are soft and without crepitus or fluctuance. No active drainage. NEURO EXAM: A&O x3, cranial nerves II-XII grossly intact, normal speech, moves all 4 extremities w/ eception of decreased range of motion of left lower extremity secondary to pain. Sensation normal throughout per patient. Differential diagnoses: Infection, DVT, dehydration, metabolic abnormality, hypo/hyperglycemia, electrolyte disturbance, anemia, hypoxia, cardiac sources, intracerebral event, toxicologic, neurologic, as well as other pathologies. Course: Patient was seen and evaluated the bedside. Full history physical exam was performed. EKG interpreted by me Imaging Studies: See Below Cardiac monitoring: An order was placed for continuous cardiac monitoring. The monitor shows a rate of with rhythm. MDM: Patient presents due to concern for knee swelling leg pain and increasing falls. Blood work is obtained along with a CT of the head left lower extremity ultra sound chest x-ray and left knee x-ray. Patient was ordered Tylenol and IV fluids as the patient clinically appears dehydrated. The patient's blood work showed mild white count of 12. The patient has anemia hemoglobin 11.3 with a normal platelet count. Patient does have mild hyponatremia. Creatinine at virtual baseline 1.6. BSG 145 patient is not in DKA. Patient's Pro-Eliecer is 1.7. I did order broad-spectrum antibiotics. Patient's chest x-ray is negative. Venous Dopplers negative of the left lower extremity knee x-ray is negative the patient's head CT is negative. I did discuss the case and the on-call hospitalist Dr. Mckinney and the patient was admitted to the medicine service. The patient did have the calor and swelling to the left lower extremity and the patient may have a beginning of a cellulitis. Patient does not have any overt signs of a septic joint. There is no surrounding erythema over the left knee. Past Med/Surg History Medical History Anxiety and depression Attention deficit disorder (ADD) Bulging lumbar disc Cardiac murmur FOLLOWS WITH DR. GREENWOOD CHF (congestive heart failure) Diabetic peripheral neuropathy associated with type 2 diabetes mellitus DM type 2 (diabetes mellitus, type 2) GERD (gastroesophageal reflux disease) History of amputation of right great toe History of anemia History of kidney stones HTN (hypertension) Hx MRSA infection 2018> resolved Hx of diabetic foot ulcer Hyperlipidemia Osteoarthritis Sleep apnea CPAP Surgical History History of colonoscopy History of open reduction and internal fixation (ORIF) procedure RT HAND History of tooth extraction History of total left knee replacement History of wisdom tooth extraction S/P revision of total knee LEFT Family History Father Family history of diabetes mellitus Other No family history of adverse response to anesthesia No pertinent family history Social History Smoking Status: Never smoker Second Hand Exposure: No; Hx Alcohol Use: No Hx Substance Use: No Preferred Language: Angolan Communication Ability: Effective Visual Impairment: Limited Dedenter Required: No Beliefs That Will Affect Care: None marital status: Current Living Situation: Spouse current occupational status: employed current occupation: [employer] , 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 How many Children do You have: 2 Feels Safe at Home: Yes during the past year weight has: remained stable Assistive Devices: Walker Allergies Allergies Allergy/AdvReac Type Severity Reaction Status Date / Time levofloxacin AdvReac Intermediate GI SYMPTOMS Verified 12/31/21 15:16 pneumococcal vaccine AdvReac Intermediate GI Verified 12/31/21 15:16 SYMPTOMS-OK IF MULTIPLE VACCINES GIVEN SEPARATELY tetanus toxoid, adsorbed AdvReac Intermediate TETANUS/DIPTHERIA/PERTUSSIS-GI Verified 12/31/21 15:16 UPSTE/BODY ACHES Home Meds Home Medications Medication Instructions Recorded Confirmed bupropion HCl 300 mg 24 hr tablet, 300 mg PO QAM 12/05/17 12/31/21 extended release (Wellbutrin XL) ezetimibe 10 mg tablet (Zetia) 10 mg PO QPM 12/05/17 12/31/21 metformin 1,000 mg tablet 1,000 mg PO BIDM 12/05/17 12/31/21 aspirin 81 mg tablet,delayed 81 mg PO QAM 04/02/18 12/31/21 release (Adult Low Dose Aspirin) furosemide 20 mg tablet 20 mg PO QAM 12/09/19 12/31/21 insulin aspart U-100 100 unit/mL 10 unit subcut ACHS 01/28/20 12/31/21 (3 mL) subcutaneous pen (Novolog Flexpen U-100 Insulin aspart) metoprolol tartrate 100 mg tablet 100 mg PO BID 03/22/20 12/31/21 insulin glargine 100 unit/mL (3 50 unit subcut BID 03/23/20 12/31/21 mL) subcutaneous pen (Lantus Solostar U-100 Insulin) lisinopril 2.5 mg tablet 2.5 mg PO QAM 07/04/20 12/31/21 pantoprazole 40 mg tablet,delayed 40 mg PO QAM 07/04/20 12/31/21 release cyclobenzaprine 10 mg tablet 10 mg PO TID PRN MUSCLE SPASMS 07/04/21 12/31/21 dapagliflozin 10 mg tablet 10 mg PO QAM 07/04/21 12/31/21 ([facility]) ondansetron HCl 4 mg tablet 4 mg PO Q8H PRN NAUSEA/VOMITING 07/04/21 12/31/21 rosuvastatin 40 mg tablet 40 mg PO DAILY 07/04/21 12/31/21 verapamil 180 mg tablet,extended 180 mg PO QAM 07/04/21 12/31/21 release cyanocobalamin (vitamin B-12) 1,000 mcg subcut WK 12/31/21 12/31/21 1,000 mcg/mL injection kit ergocalciferol (vitamin D2) 1,250 50,000 unit PO WK 12/31/21 12/31/21 mcg (50,000 unit) capsule Previous Rx's Medication Instructions Recorded gabapentin 600 mg tablet 600 mg PO BID #60 tabs 08/06/21 Results & Data (ED) Vital Signs Vital Signs - 24 hr 12/31/21 10:11 12/31/21 13:33 12/31/21 12:10 Temperature 36.7 C Temperature Source Temporal Artery Scan Pulse Rate 80 Pulse Rate [Left Apical] 68 84 Pulse Rhythm Regular Pulse Rhythm [Left Apical] Regular Pulse Strength Normal Pulse Strength [Left Apical] Normal Respiratory Rate 20 16 16 Respiratory Effort / Characteristics Non-Labored Spontaneous Non-Labored Respiratory Depth Normal Normal Respiratory Pattern Regular Blood Pressure 99/49 L Blood Pressure [Left Arm] 97/52 L 121/46 L Blood Pressure Mean 65 Blood Pressure Mean [Left Arm] 67 71 Blood Pressure Position Sitting Pulse Oximetry 95 92 94 Oxygen Delivery Method Room Air Room Air Room Air Oxygen Flow Rate Sepsis Recent Fever Within 48 Hours No Sepsis New/Unexplained Change in Mental Status No Sepsis Action Taken by Nursing No Action Required 12/31/21 14:04 Temperature Temperature Source Pulse Rate Pulse Rate [Left Apical] 77 Pulse Rhythm Pulse Rhythm [Left Apical] Regular Pulse Strength Pulse Strength [Left Apical] Normal Respiratory Rate 20 Respiratory Effort / Characteristics Non-Labored Spontaneous Respiratory Depth Normal Respiratory Pattern Blood Pressure Blood Pressure [Left Arm] 94/49 L Blood Pressure Mean Blood Pressure Mean [Left Arm] 64 Blood Pressure Position Pulse Oximetry 97 Oxygen Delivery Method Nasal Cannula Oxygen Flow Rate 2 Sepsis Recent Fever Within 48 Hours Sepsis New/Unexplained Change in Mental Status Sepsis Action Taken by Care Home Medications Current Medication List: was personally reviewed by me Laboratory Data Attestation: I reviewed the patient's lab results. Result diagrams: 12/31/21 11:15 12/31/21 11:15 Lab Results 12/31/21 12/31/21 12/31/21 Range/Units 11:15 11:15 11:15 WBC 12.58 H (4.8-10.8) K/ul RBC 3.83 L (4.63-6.08) M/uL Hgb 11.3 L (14.0-18.0) g/dl Hct 33.0 L (40.1-51.0) % MCV 86.2 (80.0-100.0) fL MCH 29.5 (25.0-34.0) pg MCHC 34.2 (32.0-36.0) g/dL RDW Std Deviation 41.1 (36.4-46.3) fL RDW Coeff of Monica 13.2 (11.5-14.5) % Plt Count 252 (130-400) K/uL MPV 10.8 (9.4-12.4) fL Immature Gran % (Auto) 0.4 % Neut % (Auto) 84.6 % Lymph % (Auto) 6.7 % [place] % (Auto) 7.9 % Eos % (Auto) 0.2 % Baso % (Auto) 0.2 % Neut # (Auto) 10.64 H (1.4-6.5) K/uL Lymph # (Auto) 0.84 L (1.2-3.4) K/uL [place] # (Auto) 0.99 H (0.24-0.82) K/uL Eos # (Auto) 0.03 (0-0.50) K/uL Baso # (Auto) 0.03 (0-0.2) K/uL Immature Gran # (Auto) 0.05 H (0.00-0.02) K/uL Sodium 132 L (136-145) mmol/L Potassium 3.7 (3.5-5.1) mmol/L Chloride 97 L (98-107) mmol/L Carbon Dioxide 24 (21-32) mmol/L Anion Gap 11 (3-11) BUN 39 H (6-23) mg/dl Creatinine 1.66 H (0.6-1.4) mg/dl Est Cr Clr Drug Dosing Not Reportable Est GFR ( Amer) 51.9 ml/min Est GFR (Non-Af Amer) 44.8 ml/min BUN/Creatinine Ratio 23.5 H (10-20) Glucose 145 H (70-99(Fasting)) mg/dl Calcium 9.1 (8.5-10.1) mg/dl Total Bilirubin 0.7 (0.2-1.0) mg/dl AST 48 H (13-39) U/L ALT 32 (7-52) U/L Alkaline Phosphatase 83 (34-104) U/L Ammonia C-Reactive Protein 18.02 H (0-0.5) mg/dl Total Protein 7.1 (6.0-8.3) gm/dl Albumin 3.5 (3.4-5.0) gm/dl Globulin 3.6 (2.5-4.0) gm/dl Albumin/Globulin Ratio 1.0 (0.9-2) SARS-CoV-2, RNA, NAAT (NEGATIVE) 12/31/21 12/31/21 Range/Units 11:50 14:56 WBC (4.8-10.8) K/ul RBC (4.63-6.08) M/uL Hgb (14.0-18.0) g/dl Hct (40.1-51.0) % MCV (80.0-100.0) fL MCH (25.0-34.0) pg MCHC (32.0-36.0) g/dL RDW Std Deviation (36.4-46.3) fL RDW Coeff of Monica (11.5-14.5) % Plt Count (130-400) K/uL MPV (9.4-12.4) fL Immature Gran % (Auto) % Neut % (Auto) % Lymph % (Auto) % [place] % (Auto) % Eos % (Auto) % Baso % (Auto) % Neut # (Auto) (1.4-6.5) K/uL Lymph # (Auto) (1.2-3.4) K/uL [place] # (Auto) (0.24-0.82) K/uL Eos # (Auto) (0-0.50) K/uL Baso # (Auto) (0-0.2) K/uL Immature Gran # (Auto) (0.00-0.02) K/uL Sodium (136-145) mmol/L Potassium (3.5-5.1) mmol/L Chloride (98-107) mmol/L Carbon Dioxide (21-32) mmol/L Anion Gap (3-11) BUN (6-23) mg/dl Creatinine (0.6-1.4) mg/dl Est Cr Clr Drug Dosing Est GFR ( Amer) ml/min Est GFR (Non-Af Amer) ml/min BUN/Creatinine Ratio (10-20) Glucose (70-99(Fasting)) mg/dl Calcium (8.5-10.1) mg/dl Total Bilirubin (0.2-1.0) mg/dl AST (13-39) U/L ALT (7-52) U/L Alkaline Phosphatase (34-104) U/L Ammonia Cancelled C-Reactive Protein (0-0.5) mg/dl Total Protein (6.0-8.3) gm/dl Albumin (3.4-5.0) gm/dl Globulin (2.5-4.0) gm/dl Albumin/Globulin Ratio (0.9-2) SARS-CoV-2, RNA, NAAT NEGATIVE (NEGATIVE) Administered Medications Discontinued Medications Acetaminophen (Acetaminophen 500 Mg Tab) 1,000 mg PO NOW STA Stop: 12/31/21 11:34 Last Admin: 12/31/21 11:49 Dose: 1,000 mg Documented By: TW Sodium Chloride (Nss 1000ml) 1,000 mls @ 999 mls/hr IV .Q1H1M ONE Stop: 12/31/21 12:33 Last Infusion: 12/31/21 12:39 Dose: 0 mls/hr Documented By: Admin: 12/31/21 11:49 Dose: 999 mls/hr Documented By: DESI Piperacillin Sod/Tazobactam Sod (Zosyn) 4.5 gm in 120 mls @ 240 mls/hr IV NOW ONE Stop: 12/31/21 14:40 Last Infusion: 12/31/21 16:44 Dose: 0 mls/hr Documented By: KKRg Admin: 12/31/21 16:14 Dose: 240 mls/hr Documented By: MACKENZIE Vancomycin HCl 2,500 mg/ (Sodium Chloride) 550 mls @ 200 mls/hr IV NOW ONE Stop: 12/31/21 16:55 Last Admin: 12/31/21 15:02 Dose: 200 mls/hr Documented By: MACKENZIE Sodium Chloride (Nss 1000ml) 1,000 mls @ 999 mls/hr IV .Q1H1M ONE Stop: 12/31/21 16:33 Last Admin: 12/31/21 16:14 Dose: 999 mls/hr Documented By: MACKENZIE Imaging Data Radiologist's Impression: Head CT 12/31/21 11:33 CT head/brain wo con CLINICAL HISTORY: 56 years-old Male with falls, fatigue. Acute head trauma status post fall TECHNIQUE: Multiple axial CT images of the head were obtained without contrast. A dose lowering technique was utilized adhering to the principles of ALARA. CT DOSE: 687.98 mGy.cm COMPARISON: Head CT and brain MRI 08/04/2021 FINDINGS: No acute intracranial hemorrhage, midline shift, intracranial mass, hydroceph alus, territorial ischemia or abnormal extra-axial collection. Involutional changes with ex vacuo ventriculomegaly. White matter hypodensities appears stable. The calvarium is intact. The paranasal sinuses, mastoid air cells, and middle ear cavities are clear. IMPRESSION: No acute intracranial abnormality or calvarial fracture. ACT 112: Negative or not required by law. The above report was generated using voice recognition software. It may contain grammatical, syntax or spelling errors. Electronically signed by: Gus Haider M.D. 12/31/2021 1:43 PM Knee X-Ray 12/31/21 11:33 XR knee LT 3V HISTORY: 56 years-old Male L knee swelling/pain; prior TKA acute left knee pain status post fall COMPARISON: 01/30/2018 TECHNIQUE: 3 views of the left knee FINDINGS: Total joint arthroplasty with patellar resurfacing. No acute fracture, dislocation or evidence of hardware complication. Corticated ossifications surrounding the knee are unchanged. Probable trace joint effusion. Arterial calcifications. IMPRESSION: No acute fracture. ACT 112: Negative or not required by law. The above report was generated using voice recognition software. It may contain grammatical, syntax or spelling errors. Electronically signed by: Gus Haider M.D. 12/31/2021 12:10 PM Venous Doppler Study 12/31/21 11:33 LEFT LOWER EXTREMITY VENOUS DOPPLER HISTORY: Acute pain and swelling of the left lower extremity swelling compared to R COMPARISON STUDY: Doppler study 02/17/2018 FINDINGS: There is normal compressibility, flow, and augmentation within the left lower extremity deep venous system. Subcutaneous edema. IMPRESSION: No DVT within the left lower extremity. ACT 112: Negative or not required by law. Electronically signed by: Gus Haider M.D. 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 No pneumothorax, pleural effusion, airspace consolidation or overt pulmonary edema. Bones of the chest appear grossly intact. Unchanged linear calcification along the right inferior glenoid. IMPRESSION: No acute process. ACT 112: Negative or not required by law. The above report was generated using voice recognition software. It may contain grammatical, syntax or spelling errors. Electronically signed by: Gus Haider M.D. 12/31/2021 12:09 PM Discharge Plan Visit Data Chief Complaint: Knee Injury/Pain Stated Complaint: LEFT KNEE PAIN, FALL ED Provider: Shai Barnhart Discharge Problem: Cellulitis, Falls, Fatigue, Leg swelling Patient Disposition: Admitted As Inpatient Discharge Instructions Interventions: ED Discharge Assessment Last Done: 12/31/21 16:45
[2021-12-31 11:27] LABS: Basophils # (auto) 0.03 K/uL (0-0.2); Basophils % (auto) 0.2 %; Eosinophils # (auto) 0.03 K/uL (0-0.50); Eosinophils % (auto) 0.2 %; Hemoglobin 11.3 g/dl (14.0-18.0); Immature Granulocytes # (auto) 0.05 K/uL (0.00-0.02); Immature Granulocytes % (auto) 0.4 %; Lymphocytes # (auto) 0.84 K/uL (1.2-3.4); Lymphocytes % (auto) 6.7 %; Mean Corpuscular Hemoglobin 29.5 pg (25.0-34.0); Mean Corpuscular Hgb Conc 34.2 g/dL (32.0-36.0); Mean Corpuscular Volume 86.2 fL (80.0-100.0); Mean Platelet Volume 10.8 fL (9.4-12.4); Monocytes # (auto) 0.99 K/uL (0.24-0.82); Monocytes % (auto) 7.9 %; Neutrophils # (auto) 10.64 K/uL (1.4-6.5); Neutrophils % (auto) 84.6 %; Platelet Count 252 K/uL (130-400); RDW Coefficient of Variation 13.2 % (11.5-14.5); RDW Standard Deviation 41.1 fL (36.4-46.3); Red Blood Count 3.83 M/uL (4.63-6.08); White Blood Count 12.58 K/ul (4.8-10.8)
[2021-12-31] MEDS ORDERED: SODIUM CHLORIDE 0.9% 1000ML 1,000 ML IV ONE ×3 (11:33→15:45)
[2021-12-31] MEDS ORDERED: ACETAMINOPHEN 500 MG TAB PO STA (11:33)
[2021-12-31 12:10] LABS: Alanine Aminotransferase 32 U/L (7-52); Albumin Level 3.5 gm/dl (3.4-5.0); Alkaline Phosphatase 83 U/L (34-104); Anion Gap 11 (3-11); Aspartate Aminotransferase 48 U/L (13-39); BUN Creatinine Ratio 23.5 (10-20); Bilirubin,Total 0.7 mg/dl (0.2-1.0); Blood Urea Nitrogen 39 mg/dl (6-23); Calcium 9.1 mg/dl (8.5-10.1); Carbon Dioxide 24 mmol/L (21-32); Chloride 97 mmol/L (98-107); Est GFR (African American) 51.9 ml/min; Est GFR (Non-African American) 44.8 ml/min; Globulin 3.6 gm/dl (2.5-4.0); Glucose 145 mg/dl (70-99(Fasting)); Potassium 3.7 mmol/L (3.5-5.1); Sodium 132 mmol/L (136-145); Total Protein 7.1 gm/dl (6.0-8.3)
--- NOTE | 2021-12-31 12:10 | XRay Report ---
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 No pneumothorax, pleural effusion, airspace consolidation or overt pulmonary edema. Bones of the chest appear grossly intact. Unchanged linear calcification along the right inferior glenoid. IMPRESSION: No acute process. ACT 112: Negative or not required by law. The above report was generated using voice recognition software. It may contain grammatical, syntax o r spelling errors. Electronically signed by: Gus Haider M.D. 12/31/2021 12:09 PM
--- NOTE | 2021-12-31 12:12 | XRay Report ---
XR knee LT 3V HISTORY: 56 years-old Male L knee swelling/pain; prior TKA acute left knee pain status post fall COMPARISON: 01/30/2018 TECHNIQUE: 3 views of the left knee FINDINGS: Total joint arthroplasty with patellar resurfacing. No acute fracture, dislocation or evidence of tolu dware complication. Corticated ossifications surrounding the knee are unchanged. Probable trace joint effusion. Arterial calcifications. IMPRESSION: No acute fracture. ACT 112: Negative or not required by law. The above report was generated using voice recognition software. It may contain grammatical, syntax o r spelling errors. Electronically signed by: Gus Haider M.D. 12/31/2021 12:10 PM
--- NOTE | 2021-12-31 13:45 | CT Scan Report ---
CT head/brain wo con CLINICAL HISTORY: 56 years-old Male with falls, fatigue. Acute head trauma status post fall TECHNIQUE: Multiple axial CT images of the head were obtained without contrast. A dose lowering tech nique was utilized adhering to the principles of ALARA. CT DOSE: 687.98 mGy.cm COMPARISON: Head CT and brain MRI 08/04/2021 FINDINGS: No acute intracranial hemorrhage, midline shift, intracranial mass, hydrocephalus, territorial ischem ia or abnormal extra-axial collection. Involutional changes with ex vacuo ventriculomegaly. White mat ter hypodensities appears stable. The calvarium is intact. The paranasal sinuses, mastoid air cells, and middle ear cavities are clear . IMPRESSION: No acute intracranial abnormality or calvarial fracture. ACT 112: Negative or not required by law. The above report was generated using voice recognition software. It may contain grammatical, syntax o r spelling errors. Electronically signed by: Gus Haider M.D. 12/31/2021 1:43 PM
--- NOTE | 2021-12-31 13:49 | Ultrasound Report ---
LEFT LOWER EXTREMITY VENOUS DOPPLER HISTORY: Acute pain and swelling of the left lower extremity swelling compared to R COMPARISON STUDY: Doppler study 02/17/2018 FINDINGS: There is normal compressibility, flow, and augmentation within the left lower extremity yvonne p venous system. Subcutaneous edema. IMPRESSION: No DVT within the left lower extremity. ACT 112: Negative or not required by law. Electronically signed by: Gus Haider M.D. 12/31/2021 1:48 PM
[2021-12-31] MEDS ORDERED: VANCOMYCIN HCL 2,500 MG in SODIUM CHLORIDE 0.9% 500 ML IV ONE (14:11)
[2021-12-31] MEDS ORDERED: PIPERACILLIN/TAZOBACTAM 4.5 GM/120 ML BAG IV ONE (14:11)
[2021-12-31] MEDS ORDERED: VANCOMYCIN CONSULT ACTIVE PRN (14:11)
--- NOTE | 2021-12-31 15:18 | History & Physical Report ---
Date of Service December 31, 2021 Assessment & Plan (1) History of infection of total joint prosthesis of knee: Plan: Patient presents with metabolic encephalopathy with his history of infection of his total knee and lack of significant clinical corresponding evidence of inspection concern would be of recurrence. Patient does have erythema to the left leg elevation of procalcitonin and leukocytosis subsequently placed on vancomycin and Zosyn with concern for prosth etic knee infection. Plain films did not show anything significant we will have orthopedic consultation and consider advanced imaging if required. Blood cultures are obtained. Other sources have been ruled out with exception of a pending urine analysis. Chest is clear on exam x-ray is unremarkable he has no right upper quadrant pain and LFTs are not significantly abnormal on presentation he does have a pilot point gallbladder. Although previous diabetic foot infections his feet including his area of amputation do not look significantly abnormal. At this point time we will treat him with the above antibiotics wait for orthopedic evaluation and inflammatory markers will be checked in the morning also consider infectious disease if need be Patient has a qSOFA score of 2 which gives him a 6% chance of a bad outcome and concern for sepsis on presentation although early should be undertaken (2) DM type 2 (diabetes mellitus, type 2): Plan: His diabetes has been out of control as an outpatient according to his family. He is on a fairly robust dose of glargine (50 twice daily) this will be continued as well as sliding scale and an A1c will be checked (3) Diastolic heart failure: Plan: Patient is not in acute diastolic heart failure has chronic issues. His blood pressure is low on presentation subsequently we will reduce his metoprolol to 50 twice daily from 100 and hold his verapamil. Patient also is on daily Lasix therapy this will also be held in hopes his blood pressure improves. Patient will be given 2 L of crystalloid given the concern of low blood pressure being associated with infection (4) Sleep apnea: Plan: Patient will be continued on CPAP at 12 cm of water (5) Hypertension: Plan: Patient typically is on metoprolol verapamil and furosemide. The verapamil and furosemide will be held metoprolol dose will be reduced to watch his blood pressure after volume resuscitation with crystalloid (6) Depression: Plan: Patient will continue on Wellbutrin (7) CKD (chronic kidney disease): Plan: Patient has chronic kidney disease stage III based upon diabetic nephropathy and hypertension Plan Heparin abuse for DVT prevention at this time History of Present Illness Primary Care Provider: Dino Johnson MD 56-year-old male brought into the emergency department for uncontrolled diabetes and some discomfort with his left knee which is replaced. The patient has had a previous knee infection with strep which required polyexchange approximately 2019 and remains on suppressive therapy with Keflex. In the emergency department plain films did not show significant derangement of his knee hardware, Doppler study of that leg is unremarkable (the leg is slightly swollen and erythematous) patient has elevated procalcitonin, elevation of white count with leftward shift and has encephalopathy with confusion In the emergency department is given vancomycin and Zosyn and blood cultures obtained pending urine culture negative chest x-ray and negative pulmonary symptoms. The patient has no peripheral stigmata of endocarditis nor new cardiac murmurs as I auscultated He previously has had diabetic foot infections and amputation partially of his right toe. There is a ecchymotic area distally which looks to be traumatic and not to be gangrene otherwise there is no other open areas on his feet Is COVID-negative on presentation Allergies Allergy/AdvReac Type Severity Reaction Status Date / Time levofloxacin AdvReac Intermediate GI SYMPTOMS Verified 12/31/21 15:16 pneumococcal vaccine AdvReac Intermediate GI Verified 12/31/21 15:16 SYMPTOMS-OK IF MULTIPLE VACCINES GIVEN SEPARATELY tetanus toxoid, adsorbed AdvReac Intermediate TETANUS/DIPTHERIA/PERTUSSIS-GI Verified 12/31/21 15:16 UPSTE/BODY ACHES Home Medications Medication Instructions Recorded Confirmed Type bupropion HCl 300 mg 24 hr tablet, 300 mg PO QAM 12/05/17 12/21/21 History extended release (Wellbutrin XL) ezetimibe 10 mg tablet (Zetia) 10 mg PO QPM 12/05/17 12/21/21 History metformin 1,000 mg tablet 1,000 mg PO BIDM 12/05/17 12/21/21 History aspirin 81 mg tablet,delayed 81 mg PO QAM 04/02/18 12/21/21 History release (Adult Low Dose Aspirin) furosemide 20 mg tablet 20 mg PO QAM 12/09/19 12/21/21 History insulin aspart U-100 100 unit/mL 10 unit subcut ACHS 01/28/20 12/21/21 History (3 mL) subcutaneous pen (Novolog Flexpen U-100 Insulin aspart) metoprolol tartrate 100 mg tablet 100 mg PO BID 03/22/20 12/21/21 History insulin glargine 100 unit/mL (3 50 unit subcut BID 03/23/20 12/21/21 History mL) subcutaneous pen (Lantus Solostar U-100 Insulin) lisinopril 2.5 mg tablet 2.5 mg PO QAM 07/04/20 12/21/21 History pantoprazole 40 mg tablet,delayed 40 mg PO QAM 07/04/20 12/21/21 History release cyclobenzaprine 10 mg tablet 10 mg PO TID PRN MUSCLE SPASMS 07/04/21 12/21/21 History dapagliflozin 10 mg tablet 10 mg PO QAM 07/04/21 12/21/21 History (Farga) ondansetron HCl 4 mg tablet 4 mg PO Q8H PRN NAUSEA/VOMITING 07/04/21 12/21/21 History rosuvastatin 40 mg tablet 40 mg PO DAILY 07/04/21 12/21/21 History verapamil 180 mg tablet,extended 180 mg PO QAM 07/04/21 12/21/21 History release cyanocobalamin (vitamin B-12) 1,000 mcg subcut .weekly 2 weeks 08/06/21 12/21/21 Rx 1,000 mcg/mL injection kit #1 ea ergocalciferol (vitamin D2) 1,250 50,000 unit PO Sa@0900 #4 caps 08/06/21 12/21/21 Rx mcg (50,000 unit) capsule gabapentin 600 mg tablet 600 mg PO BID #60 tabs 08/06/21 12/21/21 Rx cephalexin 500 mg capsule 500 mg PO BID 12/06/21 12/21/21 History Past Med/Surg History Medical History (Updated 12/31/21 @ 15:14 by Narendra Mckinney MD) Anxiety and depression Attention deficit disorder (ADD) Bulging lumbar disc Cardiac murmur FOLLOWS WITH DR. GREENWOOD CHF (congestive heart failure) Diabetic peripheral neuropathy associated with type 2 diabetes mellitus DM type 2 (diabetes mellitus, type 2) GERD (gastroesophageal reflux disease) History of amputation of right great toe History of anemia History of kidney stones HTN (hypertension) Hx MRSA infection 2018> resolved Hx of diabetic foot ulcer Hyperlipidemia Osteoarthritis Sleep apnea CPAP Surgical History History of colonoscopy History of open reduction and internal fixation (ORIF) procedure RT HAND History of tooth extraction History of total left knee replacement History of wisdom tooth extraction S/P revision of total knee LEFT Family History Father Family history of diabetes mellitus Other No family history of adverse response to anesthesia No pertinent family history Social History Smoking Status: Never smoker Second Hand Exposure: No; Hx Alcohol Use: No Hx Substance Use: No Preferred Language: Burkinan Communication Ability: Effective Visual Impairment: Limited 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 Patient is fatigued and intermittently lethargic although oriented with direct questioning no headache, no visual changes no speech or swallowing issues no chest pain, pressure or palpitations no shortness of breath, cough or wheezes no abdominal pain, nausea or vomiting, diarrhea or constipation no dysuria, hematuria or frequency Does complain of some left knee pain has bilateral lower extremity swelling which is normal for him but the left is much more swollen than the right no back pain, CVA tenderness or radicular pain Left leg has more erythema than the right He is alert and oriented x3 no focal loss of gross sensation but he does have neuropathy to his feet and amputation of his previous right great toe no complaints of anxiety or depression.. Physical Exam Physical Exam: The patient appeared well nourished and normally developed. He appears to be chronically ill though Vital signs as documented. Head exam is normocephalic atraumatic Oropharynx is without erythema or exudates Neck is without JVD, thyromegaly, or carotid bruits. Lungs are clear to auscultation, no focal loss of breath sounds Cardiac exam, Rhythm is regular.. No murmurs, rubs or gallops. Abdominal exam reveals normal bowel sounds, soft non tender, no masses Extremities are edematous left greater than right 1+ right 2+ left Erythema on the left leg circumferentially from the knee to the foot the knee itself is not grossly erythematous there is well-healed scar from previous knee replacement surgery and no overt effusion Neurologic exam is alert x3 and oriented, distal neuropathy Skin is with redness to the distal left lower extremity Psychologically is without concerns for anxiety or depression.. Results & Data Results & Data ([facility]) Vital Signs (Past 12 Hours) Vital Signs Temp Pulse Pulse Resp BP BP Pulse Ox 12/31/21 14:04 77 20 94/49 L 97 12/31/21 12:10 84 16 121/46 L 94 12/31/21 13:33 68 16 97/52 L 92 12/31/21 10:11 98.1 F 80 20 99/49 L 95 O2 Del Method O2 Flow Rate 12/31/21 14:04 Nasal Cannula 2 12/31/21 12:10 Room Air 12/31/21 13:33 Room Air 12/31/21 10:11 Room Air Diagnostic Findings Head CT 12/31/21 11:33 CT head/brain wo con CLINICAL HISTORY: 56 years-old Male with falls, fatigue. Acute head trauma status post fall TECHNIQUE: Multiple axial CT images of the head were obtained without contrast. A dose lowering technique was utilized adhering to the principles of ALARA. CT DOSE: 687.98 mGy.cm COMPARISON: Head CT and brain MRI 08/04/2021 FINDINGS: No acute intracranial hemorrhage, midline shift, intracranial mass, hydrocephalus, territorial ischemia or abnormal extra-axial collection. Involut ional changes with ex vacuo ventriculomegaly. White matter hypodensities appears stable. The calvarium is intact. The paranasal sinuses, mastoid air cells, and middle ear cavities are clear. IMPRESSION: No acute intracranial abnormality or calvarial fracture. ACT 112: Negative or not required by law. The above report was generated using voice recognition software. It may contain grammatical, syntax or spelling errors. Electronically signed by: Gus Haider M.D. 12/31/2021 1:43 PM Knee X-Ray 12/31/21 11:33 XR knee LT 3V HISTORY: 56 years-old Male L knee swelling/pain; prior TKA acute left knee pain status post fall COMPARISON: 01/30/2018 TECHNIQUE: 3 views of the left knee FINDINGS: Total joint arthroplasty with patellar resurfacing. No acute fracture, dislocation or evidence of hardware complication. Corticated ossifications surrounding the knee are unchanged. Probable trace joint effusion. Arterial calcifications. IMPRESSION: No acute fracture. ACT 112: Negative or not required by law. The above report was generated using voice recognition software. It may contain grammatical, syntax or spelling errors. Electronically signed by: Gus Haider M.D. 12/31/2021 12:10 PM Venous Doppler Study 12/31/21 11:33 LEFT LOWER EXTREMITY VENOUS DOPPLER HISTORY: Acute pain and swelling of the left lower extremity swelling compared to R COMPARISON STUDY: Doppler study 02/17/2018 FINDINGS: There is normal compressibility, flow, and augmentation within the left lower extremity deep venous system. Subcutaneous edema. IMPRESSION: No DVT within the left lower extremity. ACT 112: Negative or not required by law. Electronically signed by: Gus Haider M.D. 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 No pneumothorax, pleural effusion, airspace consolidation or overt pulmonary edema. Bones of the chest appear grossly intact. Unchanged linear calcification along the right inferior glenoid. IMPRESSION: No acute process. ACT 112: Negative or not required by law. The above report was generated using voice recognition software. It may contain grammatical, syntax or spelling errors. Electronically signed by: Gus Haider M.D. 12/31/2021 12:09 PM PG Care Time/CCT Total # of Minutes Spent Total Time Spent with Patient: Total time spent is greater than 50% in coordination of care (as documented) at patient's floor/unit and/or counseling patient: Coding Level of Care Code 90125 Initial Inpt Care Lvl 3 Diagnoses History of infection of total joint prosthesis of knee Z87.39 DM type 2 (diabetes mellitus, type 2) E11.9 Diastolic heart failure I50.30 Sleep apnea G47.30 Hypertension I10 Depression F32.9 CKD (chronic kidney disease) N18.9
[2021-12-31] MEDS ORDERED: Patient's HEIGHT &/or WEIGHT Needed SCH (16:45)
[2021-12-31] MEDS ORDERED: GLUCOSE 40% GEL 15 GM TUBE PO PRN (16:48)
[2021-12-31] MEDS ORDERED: CARBOHYDRATES FOR HYPOGLYCEMIA PO PRN (16:48)
[2021-12-31] MEDS ORDERED: DEXTROSE 50% 50 ML SYRINGE IV PRN (16:48)
[2021-12-31] MEDS ORDERED: GLUCOSE 10 TAB/TUBE PO PRN (16:48)
[2021-12-31] MEDS ORDERED: GLUCAGON FOR INJ 1 MG VIAL SQ PRN (16:48)
[2021-12-31] MEDS ORDERED: ALUMINUM/MAGNESIUM SUSP 30 ML UDC PO PRN (17:14)
[2021-12-31] MEDS ORDERED: ONDANSETRON INJ 2 MG/ML 2 ML VIAL IV PRN (17:19)
[2021-12-31] MEDS ORDERED: LIDOCAINE 1% LOCAL 20 ML VIAL ONE (17:58)
[2021-12-31] MEDS: INSULIN ASPART PER UNIT SC SCH ×2 (18:08→20:56)
--- NOTE | 2021-12-31 18:31 | Pharmacy Report ---
Pharmacy Vanc AUC Short Note - Date of Service December 31, 2021 - Assessment & Plan Assessment 56 year old M receiving IV vancomycin for treatment of possible prosthetic knee infection. Pertinent microbiologic data includes: blood cultures are pending. Day # 1 of antimicrobial therapy. Plan Vancomycin * Loading dose: vancomycin 2500 mg IV x 1 received in the ED * Maintenance dose: vancomycin 1500 mg IV q24H * AUC/AALIYAH is the preferred PK/PD target for vancomycin * AUC guided dosing is effective and associated with decreased risk of nephrotoxicity compared to traditional trough targets * Trough level of 15.5 mcg/mL is predicted to achieve target AUC/AALIYAH of 400-600 mg/L.hr (504 mg/L.hr) and may be associated with a 11 % risk of nephrotoxicity * Vancomycin level would be obtained prior to the 3rd dose or sooner if the renal function changes Zosyn: * Zosyn 4.5g IV q8h Pharmacy will continue to follow and will adjust dose/frequency as necessary. Thank you.
--- NOTE | 2021-12-31 18:55 | Communication Note ---
Full consult dictated. Knee with purulent fluid. Will discuss with joint arthroplasty time timing of I and D, poly exchange. NPO after midnight
[2021-12-31 19:50] LABS: Appearance Synovial Fluid Turbid; Color Synovial Fluid Pale Yellow; RBC Synovial Fluid (A) 12000 /uL; Source Synovial Fluid Knee; WBC Synovial Fluid (A) 63600 /ul (0-200)
[2021-12-31] MEDS: GABAPENTIN 600 MG TAB PO SCH (20:53)
[2021-12-31] MEDS: EZETIMIBE 10 MG TABLET PO SCH (20:53)
[2021-12-31] MEDS: LANTUS PER UNIT CHARGE SQ SCH (20:56)
[2021-12-31] MEDS: METOPROLOL TARTRATE 50 MG TAB PO SCH (20:56)
[2021-12-31] MEDS: ACETAMINOPHEN 325 MG TAB PO PRN (20:57)
[2021-12-31] MEDS ORDERED: HEPARIN SOD 5,000 UNIT/0.5 ML VIAL SQ SCH (21:00)
[2021-12-31] MEDS: PIPERACILLIN/TAZOBACTAM 4.5 GM in DEXTROSE 5% 100 ML IV SCH (21:05)
--- NOTE | 2021-12-31 21:17 | Consultation Report ---
ORTHOPEDIC SURGERY CONSULTATION DATE OF SERVICE: 12/31/2021 HISTORY OF PRESENT ILLNESS: The patient notes pain and swelling in the left knee, began with insidio us onset over the past few days. He notes erythema in his leg as well. PAST MEDICAL HISTORY: Type 2 diabetes, diastolic heart failure, hypertension, depression, chronic ki dney disease stage III. PAST SURGICAL HISTORY: 1. Status post total knee replacement on the left done by Dr. Yu in approximately 2000. He had subsequent revision for infection by Dr. José in 2018. He states he did well until then. 2. Previous history of diabetic foot infection with partial amputation of his right great toe. MEDICATIONS: 1. Bupropion. 2. Ezetimibe. 3. Metformin. 4. Aspirin 81 mg. 5. Furosemide. 6. Insulin. 7. Metoprolol. 8. Lisinopril. 9. Pantoprazole. 10. Cyclobenzaprine. 11. Farxiga. 12. Zofran. 13. Lovastatin. 14. Verapamil. 15. Vitamin B12. 16. Gabapentin. PHYSICAL EXAMINATION: Left lower extremity exam: Knee is swollen and does show a tense effusion. He has minimal erythema around the knee, but does have cellulitis extending down the lower leg and calf . Calf soft and compartments are soft. He can flex and extend the toes, but exam is limited seconda ry to discomfort. I reviewed AP, lateral, and sunrise view of the left knee. It does show well fixed component, status post total knee arthroplasty, good alignment is seen. LABORATORY DATA: White count 12.58, BUN 39, creatinine 1.66. C-reactive protein 18.2, ESR pending. Procalcitonin 1.78. IMPRESSION: A 56-year-old male with, 1. Rule out recurrent left total knee infection. 2. History of diabetes and congestive heart failure. PLAN: I discussed findings and treatment with him and recommendations for aspiration. PROCEDURE NOTE: Left knee was prepped in the standard fashion with alcohol and Betadine. I injected lidocaine in the local area. With an 18-gauge spinal needle, I was able to aspirate approximately 3 0 mL of purulent-appearing fluid. This was sent to laboratory for cell count, crystals, cultures and sensitivity, Gram stain, Lyme. Soft dressing was applied. We will continue vancomycin and Zosyn, which I already have been given. We will make n.p.o. after mi dnight and hold all anticoagulants. We will discuss with joint replacement team further. It is like ly he would need I and D with poly exchange. Job ID: [id number]
[2022-01-01 04:32] LABS: A calco-baum cmplx NotReported Not Detected (NotDetected); Bact fragilis Not Reported Not Detected (NotDetected); C auris Not Reported Not Detected (NotDetected); CTX-M Resistant Gene Not Detected (NotDetected); Calbicans Not Reported Not Detected (NotDetected); Candida glabrata Not Reported Not Detected (NotDetected); Candida krusei Not Reported Not Detected (NotDetected); Cneoformans/gatti Not Reported Not Detected (NotDetected); Cparapsilosis Not Reported Not Detected (NotDetected); Ctropicalis Not Reported Not Detected (NotDetected); E cloacae compx Not Reported Not Detected (NotDetected); Efaecalis Not Reported Not Detected (NotDetected); Efaecium Not Reported Not Detected (NotDetected); Enterobacterales DETECTED (NotDetected); Enterobacterales Not Reported DETECTED (NotDetected); Escherichia coli Not Reported Not Detected (NotDetected); H influenzae Not Reported Not Detected (NotDetected); IMP Resistant Gene Not Detected (NotDetected); K aerogenes Not Reported Not Detected (NotDetected); KPC Resistant Gene Not Detected (NotDetected); Koxytoca Not Reported Not Detected (NotDetected); Kpneumoniae grp Not Reported Not Detected (NotDetected); Lmonocyt Not Reported Not Detected (NotDetected); N meningitidis Not Reported Not Detected (NotDetected); NDM Resistant Gene Not Detected (NotDetected); OXA 48 Like Resistant Gene Not Detected (NotDetected); P aeruginosa Not Reported Not Detected (NotDetected); Proteus spp Not Reported Not Detected (NotDetected); Salmonella spp Not Reported Not Detected (NotDetected); Serratia marcescens DETECTED (NotDetected); Smarcescens Not Reported DETECTED (NotDetected); Staph lugdunensis Not Reported Not Detected (NotDetected); Staph spp. Not Reported Not Detected (NotDetected); Staphaureus Not Reported Not Detected (NotDetected); Staphepi Not Reported Not Detected (NotDetected); Stenmaltophilia Not Reported Not Detected (NotDetected); Strep agal(GrpB) Not Reported Not Detected (NotDetected); Strep pneum Not Reported Not Detected (NotDetected); Strep pyog (GrpA) Not Reported Not Detected (NotDetected); Strep spp Not Reported Not Detected (NotDetected); VIM Resistant Gene Not Detected (NotDetected)
[2022-01-01] MEDS: PIPERACILLIN/TAZOBACTAM 4.5 GM in DEXTROSE 5% 100 ML IV SCH (05:07)
--- NOTE | 2022-01-01 05:14 | Communication Note ---
Date of Service: January 01, 2022 Notified that blood cultures drawn yesterday positive for gram negative bacilli (03/26). Patient currently on abx therapy including tx with Zosyn, will continue.
--- NOTE | 2022-01-01 05:56 | Electrocardiogram Report ---
Test Reason : Blood Pressure : / mmHG Vent. Rate : 074 BPM Atrial Rate : 074 BPM P-R Int : 186 ms QRS Dur : 096 ms QT Int : 400 ms P-R-T Axes : 044 -10 027 degrees QTc Int : 444 ms Normal sinus rhythm Septal infarct , age undetermined Abnormal ECG When compared with ECG of 04-AUG-2021 14:34, No significant change was found Confirmed by Amilcar Graff ([id number]) on 01/01/2022 5:56:23 AM Referred By: Confirmed By:Amilcar Graff
[2022-01-01 06:17] LABS: Hematocrit (blood only) 28.4 % (40.1-51.0); Hemoglobin 9.7 g/dl (14.0-18.0); Mean Corpuscular Hemoglobin 29.5 pg (25.0-34.0); Mean Corpuscular Hgb Conc 34.2 g/dL (32.0-36.0); Mean Corpuscular Volume 86.3 fL (80.0-100.0); Mean Platelet Volume 10.8 fL (9.4-12.4); Platelet Count 219 K/uL (130-400); RDW Standard Deviation 40.9 fL (36.4-46.3); Red Blood Count 3.29 M/uL (4.63-6.08); White Blood Count 11.83 K/ul (4.8-10.8)
[2022-01-01 06:54] LABS: BUN Creatinine Ratio 20.1 (10-20); C Reactive Protein 24.82 mg/dl (0-0.5); Creatinine Clr Calc Pharmacy 67.4 ml/min; Est GFR (African American) 61.6 ml/min; Est GFR (Non-African American) 53.1 ml/min; Potassium 3.6 mmol/L (3.5-5.1)
[2022-01-01 07:32] LABS: Estimated Average Glucose 255 mg/dl; Hemoglobin A1C 10.5 % (4.5-5.6)
[2022-01-01] MEDS ORDERED: Nursing to Pharmacy Communication SCH ×3 (08:15→14:30)
[2022-01-01] MEDS: METOPROLOL TARTRATE 50 MG TAB PO SCH ×2 (09:00→20:54)
[2022-01-01] MEDS: ROSUVASTATIN CALCIUM 20 MG TAB PO SCH (09:01)
[2022-01-01] MEDS: PANTOprazole 40 MG TAB PO SCH (09:01)
[2022-01-01] MEDS: GABAPENTIN 600 MG TAB PO SCH ×2 (09:02→20:54)
[2022-01-01] MEDS: buPROPion XL 300 MG TABCR PO SCH (09:02)
[2022-01-01] MEDS: INSULIN ASPART PER UNIT SC SCH ×5 (09:11→20:55)
[2022-01-01] MEDS: LANTUS PER UNIT CHARGE SQ SCH ×2 (09:45→20:59)
[2022-01-01] MEDS ORDERED: VANCOMYCIN HCL 1,250 MG in SODIUM CHLORIDE 0.9% 250 ML IV SCH (10:00)
[2022-01-01] MEDS: CEFEPIME 2,000 MG in SYRINGE 0 ML IV SCH ×2 (11:39→20:54)
[2022-01-01] MEDS ORDERED: GADOBUTROL 65ML VIAL IV ONE (13:02)
--- NOTE | 2022-01-01 13:26 | Hospitalist Progress Note ---
Date of Service January 01, 2022 Assessment & Plan (1) Infected prosthetic knee joint: Plan: Left knee with recurrent infection. Joint aspiration fluid from 12/31 growing Gram(-) bacteria. Also with bacteremia. - Continue vanc/cefepime for now - Follow cultures - Orthopedics consulted - Likely washout on Saturday. (2) DM type 2 (diabetes mellitus, type 2): Plan: A1c is 10.5%. - Continue long-acting insulin glargine 50 units SQ BID for now (reduce dose for NPO on Saturday) - Sliding scale insulin (3) Diastolic heart failure: Plan: Patient is not in acute diastolic heart failure. - Hold home ASA & lisinopril - Lowered dose of metoprolol to 50 mg PO BID from 100 mg PO BID for now. - Presently appears euvolemic, but will need to restart home Lasix if any signs of increased volume. (4) Anemia: Plan: Baseline hgb ~11 - 12. Now down to 9.7. No signs of acute bleeding. - Get anemia labs in AM. (5) Hypertension: Plan: BP today is 115/65. - Continue beta-josias as above - Hold calcium channel josias (6) Sleep apnea: Plan: - Patient will be continued on CPAP at 12 cm of water (7) Depression: Plan: - Continue Wellbutrin (8) CKD (chronic kidney disease): Plan: Baseline Cr ~1.5 - 1.7, CKD Stage II. Presently at baseline. - Monitor - Renally adjust meds for CrCl ~65 mL/min (9) DVT prophylaxis: Plan: Heparin 5,000 units SQ BID after surgery Plan Heparin abuse for DVT prevention at this time Admission and Anticipated Discharge Date Admission Date: December 31, 2021 Subjective Seen this morning. Not in great spirits because he is upset about his knee. Overall, stable though. Not a lot of pain, but tired. Physical Exam Constitutional: WD/WN, vitals as above Eyes: EOM intact bilaterally; no conjunctival abnormality ENMT: external ear and nose normal, oropharynx normal Neck: trachea midline, no thyromegaly normal visual inspection Respiratory: normal respiratory effort, lungs clear to auscultation no respiratory distress Cardiovascular: RRR, no murmur, no edema Gastrointestinal (Abdomen): Inspection/Auscultation: abdomen normal to i nspection; abdomen not distended Musculoskeletal: no cyanosis or clubbing, extremities motor strength 5/5 Knee: + knee abnormal to inspection (On left side) and + skin erythema Skin: no rashes, warm and dry Neurologic: moves all extremities and awake Psychiatric: Orientation: alert, oriented to person and cooperative Results & Data Results & Data ([facility]) Vital Signs (Past 12 Hours) Vital Signs Temp Pulse Pulse Resp BP Pulse Ox O2 Del Method 01/01/22 05:55 89 01/01/22 07:34 Nasal Cannula 01/01/22 02:27 37.3 C 90 20 114/67 90 Nasal Cannula O2 Flow Rate 01/01/22 05:55 01/01/22 07:34 2 01/01/22 02:27 2 PG Care Time/CCT Total # of Minutes Spent Total Time Spent with Patient: Total time spent is greater than 50% in coordination of care (as documented) at patient's floor/unit and/or counseling patient: Coding Level of Care Code 61066 Subseq Hosp Care Lvl 3 Diagnoses Infected prosthetic knee joint T84.59XA; Z96.659 DM type 2 (diabetes mellitus, type 2) E11.9 Diastolic heart failure I50.30 Anemia D64.9 Hypertension I10 Sleep apnea G47.30 Depression F32.9 CKD (chronic kidney disease) N18.9 DVT prophylaxis Z29.9
[2022-01-01] MEDS ORDERED: VANCOMYCIN HCL 1,500 MG in SODIUM CHLORIDE 0.9% 500 ML IV SCH (15:00)
--- NOTE | 2022-01-01 16:23 | Infectious Disease Consult ---
Date of Consultation January 01, 2022 Assessment & Plan (1) Gram-negative bacteremia: 56 yo M with history of poorly controlled diabetes with peripheral neuropathy, hyperlipidemia, depression, JENNIFFER, insomnia, partial amputation of his right great toe, L knee streptococcal TKA s/p revision 2018 on oral suppressive cephalexin admitted on 12/31 with left knee pain Patient now with infected L knee PJI Gram negative and gram negative bacteremia. On admission, BP was decreased but improved after fluid. Patient was febrile to 38.4 Initial labs show WBC 12, hgb 11.3. Creatinine 1.6. glucose 145. PCT 1.7. Chest xray was negative for acute infection. Left lower extremity dopplers negative for DVT. L knee xray negative for fracture. Total TKA noted. Patient as started on Vancomycin and Zosyn overnight. 12/31 Blood cultures are now growing Serratia. ID has been consulted. Patient noted to have levofloxacin intolerance (GI symptoms) Recommend: -DC Vancomycin -C/W Zosyn, awaiting bacteria -Repeat blood cultures to document clearance -Surgical plans per [facility] (2) Infection of total left knee replacement: [place] knee [place] [address] Yu. L knee PJI [place] [address] José. Which grew some streptococcus, currently on suppressive abx therapy. initially was on amoxicillin suppressive therapy but this was extended and changed to cephalexin by Dr. Garcia, ID 12/31 aspiration, cx GNB Plans for I+D and poly exchange by Orthopaedics (3) Cellulitis: MRI of foot is negative for osteomyelitis Plan Thank you for this consultation. Please page for questions. Lyndsey Chandra MD [facility], [facility] Consultation Information This patient recommendation is based on a telemedicine consult request which was completed asynchronously through chart review and information provided by the primary physician. The patient was not seen or examined today. The evaluation is consultative in nature and all patient care and treatment decisions can either be accepted or rejected by the patient's primary hospital-based treating physician using their own independent medical judgment for their patient. Nurse Care Manager contact information: Please call [facility] Call Center [phone]. (Phone Number For Physician Use Only) Time Spent Reviewing Chart: 31+ minutes History of Present Illness Attending Physician: Navi Garvey MD History of Present Illness 56 yo M with history of poorly controlled diabetes with peripheral neuropathy, hyperlipidemia, depression, JENNIFFER, insomnia, partial amputation of his right great toe, L knee streptococcal TKA s/p revision 2018 on oral suppressive cephalexin admitted on 12/31 with left knee pain. Infectious diseases has been consulted for Gram negative sepsis. Per review of EMR, the patient had several falls prior to admission, this was witnessed by patients sons. Family noted an increase in his left knee swelling. Review of EMR shows that he initially was on amoxicillin suppressive therapy but this was extended and changed to cephalexin. On admission, BP was decreased but improved after fluid. Patient was febrile to 38.4 Initial labs show WBC 12, hgb 11.3. Creatinine 1.6. glucose 145. PCT 1.7. Chest xray was negative for acute infection. Left lower extremity dopplers negative for DVT. L knee xray negative for fracture. Total TKA noted. Patient as started on Vancomycin and Zosyn overnight. 12/31 Blood cultures are now growing Serratia. ID has been consulted. Patient noted to have levofloxacin intolerance (GI symptoms) Left knee aspirated 12/31 now growing Gram negative bacilli. Overnight, temp curve has improved MRI L foot demonstrated small skin ulceration at the posterior heel. No underlying abscess or bony destruction to suggest an osteomyelitis. Allergies Allergy/AdvReac Type Severity Reaction Status Date / Time levofloxacin AdvReac Intermediate GI SYMPTOMS Verified 12/31/21 15:16 pneumococcal vaccine AdvReac Intermediate GI Verified 12/31/21 15:16 SYMPTOMS-OK IF MULTIPLE VACCINES GIVEN SEPARATELY tetanus toxoid, adsorbed AdvReac Intermediate TETANUS/DIPTHERIA/PERTUSSIS-GI Verified 12/31/21 15:16 UPSTE/BODY ACHES Home Medications Medication Instructions Recorded Confirmed Type bupropion HCl 300 mg 24 hr tablet, 300 mg PO QAM 12/05/17 12/31/21 History extended release (Wellbutrin XL) ezetimibe 10 mg tablet (Zetia) 10 mg PO QPM 12/05/17 12/31/21 History metformin 1,000 mg tablet 1,000 mg PO BIDM 12/05/17 12/31/21 History aspirin 81 mg tablet,delayed 81 mg PO QAM 04/02/18 12/31/21 History release (Adult Low Dose Aspirin) furosemide 20 mg tablet 20 mg PO QAM 12/09/19 12/31/21 History insulin aspart U-100 100 unit/mL 10 unit subcut ACHS 01/28/20 12/31/21 History (3 mL) subcutaneous pen (Novolog Flexpen U-100 Insulin aspart) metoprolol tartrate 100 mg tablet 100 mg PO BID 03/22/20 12/31/21 History insulin glargine 100 unit/mL (3 50 unit subcut BID 03/23/20 12/31/21 History mL) subcutaneous pen (Lantus Solostar U-100 Insulin) lisinopril 2.5 mg tablet 2.5 mg PO QAM 07/04/20 12/31/21 History pantoprazole 40 mg tablet,delayed 40 mg PO QAM 07/04/20 12/31/21 History release cyclobenzaprine 10 mg tablet 10 mg PO TID PRN MUSCLE SPASMS 07/04/21 12/31/21 History dapagliflozin 10 mg tablet 10 mg PO QAM 07/04/21 12/31/21 History (Farxiga) ondansetron HCl 4 mg tablet 4 mg PO Q8H PRN NAUSEA/VOMITING 07/04/21 12/31/21 History rosuvastatin 40 mg tablet 40 mg PO DAILY 07/04/21 12/31/21 History verapamil 180 mg tablet,extended 180 mg PO QAM 07/04/21 12/31/21 History release gabapentin 600 mg tablet 600 mg PO BID #60 tabs 08/06/21 12/31/21 Rx cyanocobalamin (vitamin B-12) 1,000 mcg subcut WK 12/31/21 12/31/21 History 1,000 mcg/mL injection kit ergocalciferol (vitamin D2) 1,250 50,000 unit PO WK 12/31/21 12/31/21 History mcg (50,000 unit) capsule Patient History Medical History Anxiety and depression Attention deficit disorder (ADD) Bulging lumbar disc Cardiac murmur FOLLOWS WITH DR. GREENWOOD CHF (congestive heart failure) Diabetic peripheral neuropathy associated with type 2 diabetes mellitus DM type 2 (diabetes mellitus, type 2) GERD (gastroesophageal reflux disease) History of amputation of right great toe History of anemia History of kidney stones HTN (hypertension) Hx MRSA infection 2018> resolved Hx of diabetic foot ulcer Hyperlipidemia Osteoarthritis Sleep apnea CPAP Surgical History History of colonoscopy History of open reduction and internal fixation (ORIF) procedure RT HAND History of tooth extraction History of total left knee replacement History of wisdom tooth extraction S/P revision of total knee LEFT Family History Father Family history of diabetes mellitus Other No family history of adverse response to anesthesia No pertinent family history Social History Smoking Status: Never smoker Second Hand Exposure: No; Do You Dip or Chew Tobacco: No; Tobacco Cessation Education Requested by Patient: No Hx Alcohol Use: No Hx Substance Use: No Preferred Language: Tajik Communication Ability: Effective Visual Impairment: Limited Butadiene Convertor Operator Required: No Beliefs That Will Affect Care: None marital status: Current Living Situation: Spouse current occupational status: employed 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 , 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 How many Children do You have: 2 Other Information That Helps Us Care for You: No Feels Safe at Home: Yes Safety Concerns: Feels Safe At This Time during the past year weight has: remained stable Assistive Devices: None Assistive Devices Comment: has a rollator Review of System Not done d/t econsultation Physical Exam Physical Exam: not examined d/t e-consultation Results & Data ([facility]) Vital Signs (Past 12 Hours) Vital Signs Pulse O2 Del Method O2 Flow Rate 01/01/22 05:55 89 01/01/22 07:34 Nasal Cannula 2 Laboratory Results Microbiology 12/31/21 18:22 Joint Fluid,Knee Gram Stain - Final 12/31/21 18:22 Joint Fluid,Knee Aerobic and Anaerobic Culture - Preliminary Gram negative bacilli 12/31/21 11:45 Blood Aerobic Blood Culture - Preliminary 12/31/21 11:45 Blood Anaerobic Blood Culture - Preliminary Gram negative bacilli Gram negative bacilli Laboratory Tests 12/31/21 12/31/21 12/31/21 11:15 11:45 Unknown WBC RBC Hct Sodium BUN Creatinine AST 48 H ALT 32 Alkaline Phosphatase 83 C-Reactive Protein Procalcitonin 1.78 H Enterobacterales (PCR) DETECTED A Serratia marcescens PCR DETECTED A 01/01/22 01/01/22 06:00 06:00 WBC 11.83 H RBC 3.29 L Hct 28.4 L Sodium 132 L BUN 29 H Creatinine 1.44 H AST ALT Alkaline Phosphatase C-Reactive Protein 24.82 H Procalcitonin Enterobacterales (PCR) Serratia marcescens PCR (1) Cellulitis Laterality: left Site of cellulitis: extremity Site of cellulitis of extremity: lower extremity Qualified Code(s): L03.116 - Cellulitis of left lower limb :
--- NOTE | 2022-01-01 16:45 | Magnetic Resonance Report ---
MR ankle LT wo/w con HISTORY: Heel ulcer, likely osteo or abscess TECHNIQUE: Multiplanar multisequence MRI of the left ankle was performed both before and after the in travenous administration of 10 cc of Gadavist contrast. COMPARISON STUDY: Left calcaneus radiographs 10/17/2021. FINDINGS: There is diffuse subcutaneous trace edema and soft tissue edema within the ankle and visual ized foot. This most pronounced within the dorsum of the forefoot. There is minimal subcutaneous kinza a within the posterior heel. Possible small skin ulceration within the posterior heel measuring 14 mm . No loculated fluid collections to suggest an abscess. Normal marrow signal intensity seen throughou t the visualized osseous structures of the ankle. Specifically, the calcaneus is intact. No for destr uctive changes to suggest an osteomyelitis. There is posterior tibial and peroneus brevis tendinopath y. A small plantar heel spur with mild plantar fasciitis. The Achilles tendon appears intact. IMPRESSION: 1. Probable small skin ulceration at the posterior heel. No underlying abscess or bony destruction to suggest an osteomyelitis. 2. Diffuse subcutaneous and soft tissue edema. This may be chronic or represent a cellulitis. 3. Mild plantar fasciitis. ACT 112: Negative or not required by law. Electronically signed by: Nilton Mchugh M.D. 01/01/2022 4:44 PM
--- NOTE | 2022-01-01 17:47 | Orthopedic Progress Note ---
Date of Service January 01, 2022 Assessment & Plan (1) Infection of total left knee replacement: Plan: Left knee aspirate showing 63,000 white cells. Culture showing gram-negative bacilli on his knee aspirate. 1 out of 2 culture showing 2 separate gram- negative bacilli. CRP rising and is around 24. We will check ESR. As noted, [facility] discussion with [facility], patient will need an explantation of his hardware, irrigation debridement, and implantation of antibiotic articulating spacer. Patient will require 6 weeks of IV antibiotics. This has been discussed with the patient in detail and he understands and is in agreement. Plans will be for surgery this coming Saturday on 01/03/[address] Blake. Continue to follow cultures and sensitivities. Wound care consult for left heel ulcer. MRI of the left ankle is not showing any deep abscesses of the left heel and that there is no signs of osteomyelitis. Admission and Anticipated Discharge Date Admission Date: December 31, 2021 Subjective Patient lying in bed awake and alert. Has finished his dinner. No new complaints today. Had MRI of his left ankle which was not showing any abscess. Discussed with patient that he would need more than just an irrigation and debridement with polyethylene bearing change this time. We discussed that he would need a full explant of his hardware, irrigation and debridement, and implantation of an articulated antibiotic spacer. Patient understands the situation. He states that he had been on chronic Keflex twice daily since 2018 and his previous infection. Physical Exam Physical Exam: Left knee with Marko wrap and noticeably swollen. Tender on palpation and tender with range of motion. Small left heel ulcer on the plantar surface. No drainage noted. Very tender on palpation in that area. Results & Data ([facility]) Vital Signs (Past 12 Hours) Vital Signs Pulse O2 Del Method O2 Flow Rate 01/01/22 16:33 86 01/01/22 05:55 89 01/01/22 07:34 Nasal Cannula 2 Laboratory Results Patient:KY LOMBARDI Admit Date:12/31/21 MR#:[id number] Address1:[address] [place] [address] Acct ID:[id number] Address2: Date:1965 [facility] Zip:[place] [address] Age:56 Location: Sex:M Room/Bed:[facility] Att Phy:Navi Garvey MD Diagnosis:KNEE PAIN, HYPERGLYCEMIA Kadi Phy:Kaushal Johnson MD Service Date:01/01/22 Fam Phy: Interpreting Phy:Nilton Chrissie Virimoy MDAdmit Phy:Narendra Mckinney MD Ordering Phy:Navi Garvey MD cc: ~ MR ankle LT wo/w con HISTORY: Heel ulcer, likely osteo or abscess TECHNIQUE: Multiplanar multisequence MRI of the left ankle was performed both before and after the intravenous administration of 10 cc of Gadavist contrast. COMPARISON STUDY: Left calcaneus radiographs 10/17/2021. FINDINGS: There is diffuse subcutaneous trace edema and soft tissue edema within the ankle and visualized foot. This most pronounced within the dorsum of the forefoot. There is minimal subcutaneous edema within the posterior heel. Possible small skin ulceration within the posterior heel measuring 14 mm. No loculated fluid collections to suggest an abscess. Normal marrow signal intensity seen throughout the visualized osseous structures of the ankle. Specifically, the calcaneus is intact. No for destructive changes to suggest an osteomyelitis. There is posterior tibial and peroneus brevis tendinopathy. A small plantar heel spur with mild plantar fasciitis. The Achilles tendon appears intact. IMPRESSION: 1. Probable small skin ulceration at the posterior heel. No underlying abscess or bony destruction to suggest an osteomyelitis. 2. Diffuse subcutaneous and soft tissue edema. This may be chronic or represent a cellulitis. 3. Mild plantar fasciitis. ACT 112: Negative or not required by law. Diagnostic Findings Name: KY LOMBARDI Acct: [id number] Status: ADM IN : 1965 [facility] Date: 12/31/21 Age: 56 Sex: M Dis Date: Loc: [address]/Bed: [facility] Spec: [id number] Collected: 12/31/21 Received: 12/31/[address]: Kaushal Carrington MD Copy To: Narendra Mckinney MD Source: Joint Fluid,Knee OV Order: Ordered: Aer/Edna Cult/Sm Comments: Comment Left Knee Procedure Result Verified Site Gram Stain Final 01/01/22 Gram Stain Result Many Polys and Few Mononucleated Cells No Organisms Seen Aero/Edna Cult Preliminary 01/01/22 Organism 1 Gram negative bacilli Quantity Moderate Sens Sensitivities to Follow
[2022-01-01] MEDS: EZETIMIBE 10 MG TABLET PO SCH (20:54)
[2022-01-02] MEDS: CEFEPIME 2,000 MG in SYRINGE 0 ML IV SCH ×3 (02:53→20:24)
[2022-01-02 07:01] LABS: Hematocrit (blood only) 29.9 % (40.1-51.0); Hemoglobin 10.2 g/dl (14.0-18.0); Mean Corpuscular Hemoglobin 28.9 pg (25.0-34.0); Mean Corpuscular Hgb Conc 34.1 g/dL (32.0-36.0); Mean Corpuscular Volume 84.7 fL (80.0-100.0); Mean Platelet Volume 10.9 fL (9.4-12.4); Platelet Count 260 K/uL (130-400); RDW Standard Deviation 39.8 fL (36.4-46.3); Red Blood Count 3.53 M/uL (4.63-6.08); Reticulated Hemoglobin 27.6 pg (28.2-36.6); Reticulocyte % 1.5 % (0.5-2.0); Reticulocytes # 0.05 10^6/uL (0.02-0.10)
[2022-01-02 07:28] LABS: Calcium 8.5 mg/dl (8.5-10.1); Creatinine Clr Calc Pharmacy 87.5 ml/min; Est GFR (African American) 84.4 ml/min; Est GFR (Non-African American) 72.8 ml/min; Magnesium 2.1 mg/dl (1.7-2.4); Potassium 3.6 mmol/L (3.5-5.1)
[2022-01-02 07:41] LABS: Ferritin 61.1 ng/ml (8-388)
[2022-01-02 07:47] LABS: Folate (Folic Acid) 15.53 ng/ml (>5.38)
[2022-01-02] MEDS: buPROPion XL 300 MG TABCR PO SCH (08:37)
[2022-01-02] MEDS: METOPROLOL TARTRATE 50 MG TAB PO SCH ×2 (08:37→20:26)
[2022-01-02] MEDS: GABAPENTIN 600 MG TAB PO SCH ×2 (08:37→20:25)
[2022-01-02] MEDS: PANTOprazole 40 MG TAB PO SCH (08:37)
[2022-01-02] MEDS: ROSUVASTATIN CALCIUM 20 MG TAB PO SCH (08:38)
[2022-01-02] MEDS: LANTUS PER UNIT CHARGE SQ SCH ×2 (08:43→20:24)
[2022-01-02] MEDS: INSULIN ASPART PER UNIT SC SCH ×4 (08:43→20:24)
--- NOTE | 2022-01-02 10:30 | Infectious Disease Progress Nt ---
Date of Service January 02, 2022 Assessment & Plan (1) Gram-negative bacteremia: Plan: 56 yo M with history of poorly controlled diabetes with peripheral neuropathy, hyperlipidemia, depression, JENNIFFER, insomnia, partial amputation of his right great toe, L knee streptococcal TKA s/p revision 2019 on oral suppressive cephalexin admitted on 12/31 with left knee pain Patient now with infected L knee PJI Gram negative and gram negative bacteremia. On admission, BP was decreased but improved after fluid. Patient was febrile to 38.4 Initial labs show WBC 12, hgb 11.3. Creatinine 1.6. glucose 145. PCT 1.7. Chest xray was negative for acute infection. Left lower extremity dopplers negative for DVT. L knee xray negative for fracture. Total TKA noted. Patient as started on Vancomycin and Zosyn overnight. 12/31 Blood cultures are now growing Serratia. ID has been consulted. Patient noted to have levofloxacin intolerance (GI symptoms) Recommend: -Zosyn d/cd -Cefepime 2G IV TID -F/u OR cultures and blood cultures -Repeat blood cultures to document clearance -Surgical plans per Orthopaedics plan to complete removal of hardware with spacer placement. Anticipate he will need 6 week therapy. Hold on PICC line until blood cultures cleared x 48 hours. (2) Infection of total left knee replacement: Plan: [place] [address] Yu. L knee PJI in [address] José. Which grew some streptococcus, currently on suppressive abx therapy. initially was on amoxicillin suppressive therapy but this was extended and changed to cephalexin by Dr. Garcia, ID 12/31 aspiration, serratia Surgical plans as above (3) Cellulitis: Plan: MRI of foot is negative for osteomyelitis Plan I called and spoke with Dr. Guru Chandra MD [facility], [facility] Admission and Anticipated Discharge Date Admission Date: December 31, 2021 Subjective Subsequent visit was provided via telemedicine using two-way real-time interactive telecommunication between the patient and the telemedicine provider. For the duration of the visit, the provider was performing the assessment from a different facility than the patient. This includesuse of bluetooth stethoscope forauscultationperformed by the telepresenter that the telemedicine provider can hear if described in the physical exam. Milk Pickup Truck Driver contact information: Please call [facility] Call Center . (Phone Number For Physician Use Only) After establishing a telemedicine visit, patient was: Patient was verified with two unique identifiers, Patient/authorized rep acknowledged consent and understanding and Gave permission to continue telehealth session Subsequent Time Spent w Inpatient: 25 minutes patient states he had a cut on his left leg but unable to tell me more detail. He is feeling better overall but c/o contined fatigue. He denies fevers, chills, diarrhea. Review of System Constitutional: as per Subjective / HPI Gastrointestinal: + change in bowel habits; no abdominal pain Physical Exam Constitutional: WD/WN, vitals as above Skin: L knee swelling, incision closed. no small area L foot orthopedist to touch but no erythema, swelling to top of knee L heel ulcer surrounding erythema Results & Data ([facility]) Vital Signs (Past 12 Hours) Vital Signs Temp Pulse Pulse Resp BP BP Pulse Ox 01/02/22 08:00 37.4 C 88 20 148/72 H 93 01/02/22 06:07 90 01/02/22 02:54 37.4 C 87 20 132/67 92 01/01/22 23:36 82 01/01/22 22:45 37.1 C 81 18 120/68 92 O2 Del Method 01/02/22 08:00 Room Air 01/02/22 06:07 01/02/22 02:54 Room Air 01/01/22 23:36 01/01/22 22:45 Room Air Laboratory Results Microbiology 12/31/21 18:22 Joint Fluid,Knee Gram Stain - Final 12/31/21 18:22 Joint Fluid,Knee Aerobic and Anaerobic Culture - Preliminary Serratia marcescens Microbiology 12/31/21 18:22 Joint Fluid,Knee Gram Stain - Final 12/31/21 18:22 Joint Fluid,Knee Aerobic and Anaerobic Culture - Preliminary Serratia marcescens 12/31/21 11:45 Blood Aerobic Blood Culture - Preliminary 12/31/21 11:45 Blood Anaerobic Blood Culture - Preliminary Gram negative bacilli Gram negative bacilli Laboratory Tests 01/02/22 01/02/22 06:31 06:31 WBC 11.10 H Plt Count 260 Creatinine 1.11 D Org 1 = Serratia marcescens Collected: 12/31/21 18:22 Source: Joint Fluid,Knee ANTIBIOTIC ORG 1 Cefepime S Ceftriaxone I Ciprofloxacin S Ertapenem S Gentamicin S Levofloxacin S Meropenem S Piperacillin/Tazobactam S Tobramycin S Trimethoprim/Sulfamethoxazole S Medications Administered Medications Cefepime HCl 2,000 mg/ Syringe 20 mls @ 5 mls/min IV Q8H [facility]; Protocol Stop: 01/15/22 11:59 (1) Cellulitis Laterality: left Site of cellulitis: extremity Site of cellulitis of extremity: lower extremity Qualified Code(s): L03.116 - Cellulitis of left lower limb
--- NOTE | 2022-01-02 12:55 | Hospitalist Progress Note ---
Date of Service January 02, 2022 Assessment & Plan (1) Infected prosthetic knee joint: Plan: Left knee with recurrent infection. Joint aspiration fluid from 12/31 growing Gram(-) bacteria. Also with bacteremia. - Continue cefepime for now - Follow cultures -> Growing Serratia marcescens with intermediate sensitivity to ceftriaxone, but otherwise sensitive. - Orthopedics consulted - Likely washout on Saturday. - ID consulted - appreciate recs - Repeat blood cultures (2) DM type 2 (diabetes mellitus, type 2): Plan: A1c is 10.5%. - Continue long-acting insulin glargine 50 units SQ BID for now (reduce dose for NPO on Saturday) - Sliding scale insulin -> Blood sugars 108 - 200 in last 24 hours. (3) Diastolic heart failure: Plan: Patient is not in acute diastolic heart failure. - Hold home ASA & lisinopril - Lowered dose of metoprolol to 50 mg PO BID from 100 mg PO BID for now. - Presently appears euvolemic, but will need to restart home Lasix if any signs of increased volume. (4) Anemia: Plan: Baseline hgb ~11 - 12. Now down to 9.7. No signs of acute bleeding. Anemia labs shows anemia of chronic disease. - Monitor (5) Hypertension: Plan: BP today is 125/65. - Continue beta-josias as above - Hold calcium channel josias (6) Sleep apnea: Plan: - Patient will be continued on CPAP at 12 cm of water (7) Depression: Plan: - Continue Wellbutrin (8) CKD (chronic kidney disease): Plan: Baseline Cr ~1.2 - 1.5, CKD Stage II. Presently at baseline. - Monitor (9) DVT prophylaxis: Plan: Heparin 5,000 units SQ BID after surgery Plan Heparin abuse for DVT prevention at this time Admission and Anticipated Discharge Date Admission Date: December 31, 2021 Subjective Stable today. No increased pain. No major issues. Reports no fevers/chills, chest pain, shortness of breath, abdominal pain, nausea, or vomiting. Physical Exam Constitutional: WD/WN, vitals as above Eyes: EOM intact bilaterally; no conjunctival abnormality ENMT: external ear and nose normal, oropharynx normal Neck: trachea midline, no thyromegaly normal visual inspection Respiratory: normal respiratory effort, lungs clear to auscultation no respiratory distress Cardiovascular: RRR, no murmur, no edema Gastrointestinal (Abdomen): Inspection/Auscultation: abdomen normal to inspection; abdomen not distended Musculoskeletal: no cyanosis or clubbing, extremities motor strength 5/5 Knee: + knee abnormal to inspection (On left side) and + skin erythema Skin: no rashes, warm and dry + ulcer (Left heel) Neurologic: moves all extremities and awake Psychiatric: Orientation: alert, oriented to person and cooperative Results & Data Results & Data ([facility]) Vital Signs (Past 12 Hours) Vital Signs Temp Pulse Pulse Resp BP BP Pulse Ox 01/02/22 10:56 37.1 C 79 18 124/68 92 01/02/22 08:00 37.4 C 88 20 148/72 H 93 01/02/22 06:07 90 01/02/22 02:54 37.4 C 87 20 132/67 92 O2 Del Method 01/02/22 10:56 Room Air 01/02/22 08:00 Room Air 01/02/22 06:07 01/02/22 02:54 Room Air PG Care Time/CCT Total # of Minutes Spent Total Time Spent with Patient: Total time spent is greater than 50% in coordination of care (as documented) at patient's floor/unit and/or counseling patient: Coding Level of Care Code 83575 Subseq Hosp Care Lvl 3 Diagnoses Infected prosthetic knee joint T84.59XA; Z96.659 DM type 2 (diabetes mellitus, type 2) E11.9 Diastolic heart failure I50.30 Anemia D64.9 Hypertension I10 Sleep apnea G47.30 Depression F32.9 CKD (chronic kidney disease) N18.9 DVT prophylaxis Z29.9
--- NOTE | 2022-01-02 13:47 | Orthopedic Progress Note ---
Date of Service January 02, 2022 Assessment & Plan (1) Infection of total left knee replacement: Plan: Left knee aspirate showing 63,000 white cells. Culture showing gram-negative bacilli on his knee aspirate. --> Serratia Marcescens identified. 1 out of 2 culture showing 2 gram neg bacilli . ESR 75 yesterday. As noted, after discussion with [facility], patient will need an explantation of his hardware, irrigation debridement, and implantation of antibiotic articulating spacer. Patient will require 6 weeks of IV antibiotics. This has been discussed with the patient in detail and he understands and is in agreement. Plans will be for surgery this coming Saturday on 01/03/[address] Blake. Continue to follow cultures and sensitivities. Wound care consult for left heel ulcer. MRI of the left ankle is not showing any deep abscesses of the left heel and that there is no signs of osteomyelitis. Plan for OR at 1600 tomorrow. Admission and Anticipated Discharge Date Admission Date: December 31, 2021 Subjective Pt resting comfortably. No new complaints. Physical Exam Physical Exam: No new changes with his left knee. Results & Data ([facility]) Vital Signs (Past 12 Hours) Vital Signs Temp Pulse Pulse Resp BP BP Pulse Ox 01/02/22 10:56 37.1 C 79 18 124/68 92 01/02/22 08:00 37.4 C 88 20 148/72 H 93 01/02/22 06:07 90 01/02/22 02:54 37.4 C 87 20 132/67 92 O2 Del Method 01/02/22 10:56 Room Air 01/02/22 08:00 Room Air 01/02/22 06:07 01/02/22 02:54 Room Air
--- NOTE | 2022-01-02 15:14 | Anesthesiology Consultation ---
Date of Service January 02, 2022 Assessment & Plan (1) Encounter for pre-operative examination: Chart Review Chart Review: Acceptable Risk for Surgery and Patient NOT seen in Pre Admission Testing Consults Requested none History Surgery Operation Date: 01/03/22 07:00 Proposed Procedures p Left Incision and Drainage Knee - Gus Blake DO s Explant Hardware, Implant Antibiotic Spacer - Gus Blake DO Height/Weight Height: 5 ft 10 in Weight: 103.6 kg Allergies Allergy/AdvReac Type Severity Reaction Status Date / Time levofloxacin AdvReac Intermediate GI SYMPTOMS Verified 12/31/21 15:16 pneumococcal vaccine AdvReac Intermediate GI Verified 12/31/21 15:16 SYMPTOMS-OK IF MULTIPLE VACCINES GIVEN SEPARATELY tetanus toxoid, adsorbed AdvReac Intermediate TETANUS/DIPTHERIA/PERTUSSIS-GI Verified 12/31/21 15:16 UPSTE/BODY ACHES Medications Home Medications Medication Instructions Recorded Confirmed Last Taken bupropion HCl 300 mg 24 hr tablet, 300 mg PO QAM 12/05/17 12/31/21 12/31/21 extended release (Wellbutrin XL) ezetimibe 10 mg tablet (Zetia) 10 mg PO QPM 12/05/17 12/31/21 12/30/21 metformin 1,000 mg tablet 1,000 mg PO BIDM 12/05/17 12/31/21 12/31/21 08:00 aspirin 81 mg tablet,delayed 81 mg PO QAM 04/02/18 12/31/21 12/31/21 release (Adult Low Dose Aspirin) furosemide 20 mg tablet 20 mg PO QAM 12/09/19 12/31/21 12/31/21 insulin aspart U-100 100 unit/mL 10 unit subcut ACHS 01/28/20 12/31/21 12/31/21 (3 mL) subcutaneous pen (Novolog Flexpen U-100 Insulin aspart) metoprolol tartrate 100 mg tablet 100 mg PO BID 03/22/20 12/31/21 12/31/21 insulin glargine 100 unit/mL (3 50 unit subcut BID 03/23/20 12/31/21 12/31/21 08:00 mL) subcutaneous pen (Lantus Solostar U-100 Insulin) lisinopril 2.5 mg tablet 2.5 mg PO QAM 07/04/20 12/31/21 12/31/21 pantoprazole 40 mg tablet,delayed 40 mg PO QAM 07/04/20 12/31/21 12/31/21 release cyclobenzaprine 10 mg tablet 10 mg PO TID PRN MUSCLE SPASMS 07/04/21 12/31/21 Un known dapagliflozin 10 mg tablet 10 mg PO QAM 07/04/21 12/31/21 12/31/21 (Merged With [facility]) ondansetron HCl 4 mg tablet 4 mg PO Q8H PRN NAUSEA/VOMITING 07/04/21 12/31/21 Unknown rosuvastatin 40 mg tablet 40 mg PO DAILY 07/04/21 12/31/21 12/31/21 verapamil 180 mg tablet,extended 180 mg PO QAM 07/04/21 12/31/21 12/31/21 release gabapentin 600 mg tablet 600 mg PO BID #60 tabs 08/06/21 12/31/21 12/31/21 08:00 cyanocobalamin (vitamin B-12) 1,000 mcg subcut WK 12/31/21 12/31/21 12/29/21 1,000 mcg/mL injection kit ergocalciferol (vitamin D2) 1,250 50,000 unit PO WK 12/31/21 12/31/21 12/26/21 mcg (50,000 unit) capsule Active Medications Generic Name Dose Route Start Last Admin Trade Name Freq PRN Reason Stop Dose Admin Acetaminophen 650 mg 12/31/21 17:14 12/31/21 20:57 Acetaminophen 325 Mg Tab PO 01/30/22 17:13 650 mg Q4H PRN Administration Pain or Fever Bupropion HCl 300 mg 01/01/22 09:00 01/02/22 08:37 Bupropion Xl 300 Mg Tabcr PO 01/31/22 08:59 300 mg QAM ALL Administration Ezetimibe 10 mg 12/31/21 21:00 01/01/22 20:54 Ezetimibe 10 Mg Tablet PO 01/30/22 20:59 10 mg QPM ALL Administration Gabapentin 600 mg 12/31/21 21:00 01/02/22 08:37 Gabapentin 600 Mg Tab PO 01/30/22 20:59 600 mg BID ALL Administration Heparin Sodium (Porcine) 5,000 units 12/31/21 21:00 12/31/21 20:54 Heparin Sod 5,000 Unit/0.5 Ml Vial SQ 01/30/22 20:59 5,000 units Q12 ALL Administration Cefepime HCl 2,000 mg/ Syringe 20 mls @ 5 mls/min 01/01/22 12:00 01/02/22 12: 24 IV 01/15/22 11:59 5 mls/min Q8H ALL Administration Protocol Insulin Aspart 0 units 01/01/22 16:30 01/02/22 12:24 Insulin Aspart Per Unit SC 01/31/22 08:29 3 units ACHS ALL Administration Insulin Glargine 50 units 12/31/21 21:00 01/02/22 08:43 Lantus Per Unit Charge SQ 01/30/22 20:59 50 units BID ALL Administration Metoprolol Tartrate 50 mg 12/31/21 21:00 01/02/22 08:37 Metoprolol Tartrate 50 Mg Tab PO 01/30/22 20:59 50 mg BID ALL Administration Pantoprazole Sodium 40 mg 01/01/22 09:00 01/02/22 08:37 Pantoprazole 40 Mg Tab PO 01/31/22 08:59 40 mg QAM ALL Administration Rosuvastatin Calcium 40 mg 01/01/22 09:00 01/02/22 08:38 Rosuvastatin Calcium 20 Mg Tab PO 01/31/22 08:59 40 mg DAILY ALL Administration Past Medical History Medical History Anxiety and depression Attention deficit disorder (ADD) Bulging lumbar disc Cardiac murmur FOLLOWS WITH DR. GREENWOOD CHF (congestive heart failure) Diabetic peripheral neuropathy associated with type 2 diabetes mellitus DM type 2 (diabetes mellitus, type 2) GERD (gastroesophageal reflux disease) History of amputation of right great toe History of anemia History of kidney stones HTN (hypertension) Hx MRSA infection 2018> resolved Hx of diabetic foot ulcer Hyperlipidemia Obesity Osteoarthritis Sleep apnea CPAP Past Family History Family History Father Family history of diabetes mellitus Other No family history of adverse response to anesthesia No pertinent family history Past Surgical History Surgical History History of colonoscopy History of open reduction and internal fixation (ORIF) procedure RT HAND History of tooth extraction History of total left knee replacement History of wisdom tooth extraction S/P revision of total knee LEFT Social History Smoking Status: Never smoker Do You Dip or Chew Tobacco: No Hx Alcohol Use: No Alcohol type: beer, wine and hard liquor alcohol intake frequency: a few times a month Hx Substance Use: No substance use type: does not use Physical Exam Vital Signs Last Vital Signs Temp 37.1 C 01/02/22 10:56 Pulse 83 01/02/22 14:28 Resp 18 01/02/22 10:56 BP 124/68 01/02/22 10:56 Pulse Ox 92 01/02/22 10:56 O2 Del Method 01/02/22 10:56 O2 Flow Rate 2 01/01/22 07:34 Testing Laboratory Results 01/02/22 06:31 01/02/22 06:31 Hemoglobin A1c 10.5 % (4.5-5.6) H 01/01/22 06:00 12/31/21 11:50 Aerobic Blood Culture - Preliminary Blood No growth in Aerobic bottle after 48 hours. Anaerobic Blood Culture - Preliminary No growth in Anaerobic bottle after 48 hours. 01/01/22 16:46 Urine Culture - Preliminary Urine,Clean Catch No growth - Less than 1,000 colonies/mL, Final report to follow. 12/31/21 11:45 Aerobic Blood Culture - Preliminary Blood Gram negative bacilli Anaerobic Blood Culture - Preliminary Gram negative bacilli 12/31/21 18:22 Gram Stain - Final Joint Fluid,Knee Aerobic and Anaerobic Culture - Preliminary Serratia marcescens 01/02/22 01/02/22 11:37 07:36 POC Glucose 108 H 113 H Electrocardiogram Date: 12/31/21 ~ DICTATED BY:Amilcar Graff MD Test Reason : Blood Pressure : / mmHG Vent. 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 No p neumothorax, pleural effusion, airspace consolidation or overt pulmonary edema. Bones of the chest appear grossly intact. Unchanged linear calcification along the right inferior glenoid. IMPRESSION: No acute process. ACT 112: Negative or not required by law. The above report was generated using voice recognition software. It may contain grammatical, syntax or spelling errors. Electronically signed by: Gus Haider M.D. 12/31/2021 12:09 PM Dictated:12/31/211207 Transcribed: 12/31/211207 Echocardiogram Date: 08/05/21 EF: 60-65 LV Function: normal Other Findings: + LVH (mild concentric) and + diastolic dysfunction (grade 1) Valvular Disease: + AI (mild)
[2022-01-02] MEDS: EZETIMIBE 10 MG TABLET PO SCH (20:26)
[2022-01-03] MEDS: CEFEPIME 2,000 MG in SYRINGE 0 ML IV SCH ×3 (03:01→20:30)
[2022-01-03] MEDS ORDERED: Nursing to Pharmacy Communication SCH ×2 (07:00→20:30)
[2022-01-03 07:03] LABS: Hematocrit (blood only) 31.5 % (40.1-51.0); Mean Corpuscular Hemoglobin 29.7 pg (25.0-34.0); Mean Corpuscular Hgb Conc 34.9 g/dL (32.0-36.0); Mean Corpuscular Volume 85.1 fL (80.0-100.0); Mean Platelet Volume 10.5 fL (9.4-12.4); Platelet Count 330 K/uL (130-400); RDW Coefficient of Variation 12.9 % (11.5-14.5); RDW Standard Deviation 40.2 fL (36.4-46.3); White Blood Count 11.72 K/ul (4.8-10.8)
[2022-01-03 07:29] LABS: BUN Creatinine Ratio 18.3 (10-20); Calcium 8.8 mg/dl (8.5-10.1); Creatinine Clr Calc Pharmacy 84.2 ml/min; Est GFR (African American) 80.9 ml/min; Est GFR (Non-African American) 69.8 ml/min; Potassium 3.7 mmol/L (3.5-5.1)
[2022-01-03] MEDS: METOPROLOL TARTRATE 50 MG TAB PO SCH ×2 (08:42→20:35)
[2022-01-03] MEDS: GABAPENTIN 600 MG TAB PO SCH ×2 (08:43→20:35)
[2022-01-03] MEDS: ROSUVASTATIN CALCIUM 20 MG TAB PO SCH (08:43)
[2022-01-03] MEDS: PANTOprazole 40 MG TAB PO SCH (08:43)
[2022-01-03] MEDS: buPROPion XL 300 MG TABCR PO SCH (08:44)
[2022-01-03] MEDS: LANTUS PER UNIT CHARGE SQ SCH ×2 (09:06→21:36)
[2022-01-03] MEDS: INSULIN ASPART PER UNIT SC SCH ×3 (11:52→21:36)
--- NOTE | 2022-01-03 13:12 | Hospitalist Progress Note ---
Date of Service January 03, 2022 Assessment & Plan (1) Infected prosthetic knee joint: Plan: Left knee with recurrent infection. Joint aspiration fluid from 12/31 growing Serratia. Also with bacteremia. - Continue cefepime x 6 weeks. - Follow cultures -> Growing Serratia marcescens with intermediate sensitivity to ceftriaxone, but otherwise sensitive. - Orthopedics consulted - Washout on 01/03 with explantation and antibiotic spacer. Plan for re-due in 6 weeks or so. - ID consulted - appreciate recs - Repeat blood cultures on 01/02 with no growth so far. (2) DM type 2 (diabetes mellitus, type 2): Plan: A1c is 10.5%. - Continue long-acting insulin glargine 50 units SQ BID for now (reduce dose for NPO on Saturday) - Sliding scale insulin -> Blood sugars 130 - 200 in last 24 hours. (3) Diastolic heart failure: Plan: Patient is not in acute diastolic heart failure. - Hold home ASA & lisinopril - Lowered dose of metoprolol to 50 mg PO BID from 100 mg PO BID for now. - Presently appears euvolemic, but will need to restart home Lasix if any signs of increased volume. (4) Anemia: Plan: Baseline hgb ~11 - 12. Now down to 9.7. No signs of acute bleeding. Anemia labs shows anemia of chronic disease. - Monitor (5) Hypertension: Plan: BP today is 125/65. - Continue beta-josias as above - Hold calcium channel josias (6) Sleep apnea: Plan: - Patient will be continued on CPAP at 12 cm of water (7) Depression: Plan: - Continue Wellbutrin (8) CKD (chronic kidney disease): Plan: Baseline Cr ~1.2 - 1.5, CKD Stage II. Presently at baseline. - Monitor (9) DVT prophylaxis: Plan: Heparin 5,000 units SQ BID after surgery Plan Heparin abuse for DVT prevention at this time Admission and Anticipated Discharge Date Admission Date: December 31, 2021 Subjective No major issues today. Awaiting surgery today. Reports no fevers/chills, chest pain, shortness of breath, abdominal pain, nausea, or vomiting. Physical Exam Constitutional: WD/WN, vitals as above Eyes: EOM intact bilaterally; no conjunctival abnormality ENMT: external ear and nose normal, oropharynx normal Neck: trachea midline, no thyromegaly normal visual inspection Respiratory: normal respiratory effort, lungs clear to auscultation no respiratory distress Cardiovascular: RRR, no murmur, no edema Gastrointestinal (Abdomen): Inspection/Auscultation: abdomen normal to inspection; abdomen not distended Musculoskeletal: no cyanosis or clubbing, extremities motor strength 5/5 Knee: + knee abnormal to inspection (On left side) and + skin erythema Skin: no rashes, warm and dry + ulcer (Left heel) Neurologic: moves all extremities and awake Psychiatric: Orientation: alert, oriented to person and cooperative Results & Data Results & Data ([facility]) Vital Signs (Past 12 Hours) Vital Signs Temp Pulse Pulse Resp BP BP Pulse Ox 01/03/22 11:31 36.8 C 73 20 128/72 93 01/03/22 06:09 82 01/03/22 06:42 37.2 C 83 18 154/67 H 93 01/03/22 03:56 37.2 C 85 18 138/71 94 O2 Del Method 01/03/22 11:31 Room Air 01/03/22 06:09 01/03/22 06:42 Room Air 01/03/22 03:56 Room Air PG Care Time/CCT Total # of Minutes Spent Total Time Spent with Patient: Total time spent is greater than 50% in coordination of care (as documented) at patient's floor/unit and/or counseling patient: Coding Level of Care Code 12616 Subseq Hosp Care Lvl 2 Diagnoses Infected prosthetic knee joint T84.59XA; Z96.659 DM type 2 (diabetes mellitus, type 2) E11.9 Diastolic heart failure I50.30 Anemia D64.9 Hypertension I10 Sleep apnea G47.30 Depression F32.9 CKD (chronic kidney disease) N18.9 DVT prophylaxis Z29.9
--- NOTE | 2022-01-03 14:22 | Infectious Disease Progress Nt ---
Date of Service January 03, 2022 Assessment & Plan (1) Gram-negative bacteremia: Plan: 56 yo M with history of poorly controlled diabetes with peripheral neuropathy, hyperlipidemia, depression, JENNIFFER, insomnia, partial amputation of his right great toe, L knee streptococcal TKA s/p revision 2019 on oral suppressive cephalexin admitted on 12/31 with left knee pain Patient now with infected Serratia L knee PJI and bacteremia. On admission, BP was decreased but improved after fluid. Patient was febrile to 38.4 Initial labs show WBC 12, hgb 11.3. Creatinine 1.6. glucose 145. PCT 1.7. Chest xray was negative for acute infection. Left lower extremity dopplers neg ative for DVT. L knee xray negative for fracture. Total TKA noted. Patient as started on Vancomycin and Zosyn overnight. 12/31 Blood cultures are now growing Serratia. ID has been consulted. Patient noted to have levofloxacin intolerance (GI symptoms) Recommend: -Cefepime 2G IV TID -F/u OR cultures -Repeat blood cultures to document clearance are in llab -Patient in surgery today -Anticipate 6 week duration of therapy pending OR findings (2) Infection of total left knee replacement: Plan: Total knee [place] [address] Yu. L knee PJI [place] [address] José. Which grew some streptococcus, currently on suppressive abx therapy. initially was on amoxicillin suppressive therapy but this was extended and changed to cephalexin by Dr. Garcia, ID 12/31 aspiration, serratia Surgical plans as above (3) Cellulitis: Plan: MRI of foot is negative for osteomyelitis Plan ID will follow with you. No changes to Antibiotics today. Lyndsey Chandra MD [facility], [facility] Admission and Anticipated Discharge Date Admission Date: December 31, 2021 Subjective This patient recommendation is based on a telemedicine consult request which was completed asynchronously through chart review and information provided by the primary physician. The patient was not seen or examined today. The evaluation is consultative in nature and all patient care and treatment decisions can either be accepted or rejected by the patient's primary hospital-based treating physician using their own independent medical judgment for their patient. 24 hours: Patient to OR today with Orthopaedics Physical Exam Physical Exam: not examined, d/t econsultation Results & Data ([facility]) Vital Signs (Past 12 Hours) Vital Signs Temp Pulse Pulse Resp BP BP Pulse Ox 01/03/22 11:31 36.8 C 73 20 128/72 93 01/03/22 06:09 82 01/03/22 06:42 37.2 C 83 18 154/67 H 93 01/03/22 03:56 37.2 C 85 18 138/71 94 O2 Del Method 01/03/22 11:31 Room Air 01/03/22 06:09 01/03/22 06:42 Room Air 01/03/22 03:56 Room Air Laboratory Results Laboratory Tests 01/03/22 01/03/22 06:39 06:39 WBC 11.72 H Hgb 11.0 L Sodium 133 L Potassium 3.7 Creatinine 1.15 Glucose 159 H Spec: [id number] Collected: 01/02/22 Received: 01/02/[address]: Navi Garvey MD Copy To: Narendra Mckinney MD Source: Blood OV Order: Ordered: Blood Culture Comments: Comment Default is separate sites, same time Blood culture drawn venously from Left Arm. Procedure Result Verified Site Blood Culture Aerobic Preliminary 01/03/22 No growth in Aerobic bottle after 24 hours. Blood Culture Anaerobic Preliminary 01/03/22 No growth in Anaerobic bottle after 24 hours. Medications Cefepime HCl 2,000 mg/ Syringe 20 mls @ 5 mls/min IV Q8H [facility]; Protocol Stop: 01/15/22 11:59 Microbiology 12/31/21 18:22 Joint Fluid,Knee Gram Stain - Final 12/31/21 11:45 Blood Aerobic Blood Culture - Final 12/31/21 11:45 Blood Anaerobic Blood Culture - Final Serratia marcescens Serratia marcescens 12/31/21 18:22 Joint Fluid,Knee Aerobic and Anaerobic Culture - Preliminary Serratia marcescens Copy To: Narendra Mckinney MD Source: Joint Fluid,Knee OV Order: Ordered: Aer/Edna Cult/Sm Comments: Comment Left Knee Procedure Result Verified Site Gram Stain Final 01/01/22 Gram Stain Result Many Polys and Few Mononucleated Cells No Organisms Seen Aero/Edna Cult Preliminary 01/03/22-1025 Organism 1 Serratia marcescens Quantity Moderate Sens Sensitivities to Follow No Anaerobes Isolated No Anaerobes Isolated S marcesc RX M.I.C. --- --------- Cefepime S <=2 Ceftriaxone I 2 Ciprofloxacin S <=0.25 Ertapenem S <=0.5 Gentamicin S <=4 Levofloxacin S <=0.5 Meropenem S <=1 Tobramycin S <=4 Trimeth/Sulfa S <=2/38 Pip/Tazo S <=16 Medications Administered Medications Cefepime HCl 2,000 mg/ Syringe 20 mls @ 5 mls/min IV Q8H [facility]; Protocol Stop: 01/15/22 11:59 (1) Cellulitis Laterality: left Site of cellulitis: extremity Site of cellulitis of extremity: lower extremity Qualified Code(s): L03.116 - Cellulitis of left lower limb
[2022-01-03] MEDS ORDERED: fentaNYL citrate 100 MCG/2 ML VIAL ONE ×2 (15:43)
[2022-01-03] MEDS ORDERED: PHENYLEPHRINE 100MCG/ML 5ML SYR ONE (15:43)
[2022-01-03] MEDS ORDERED: LIDOCAINE 2% MPF LOCAL 5 ML VIAL INFIL ONE (15:43)
[2022-01-03] MEDS ORDERED: MIDAZOLAM HCL 1 MG/ML 2ML VIAL ONE (15:43)
[2022-01-03] MEDS ORDERED: ePHEDrine sulfate 50 MG/ML SYR ONE (15:43)
[2022-01-03] MEDS ORDERED: ONDANSETRON INJ 2 MG/ML 2 ML VIAL ONE ×2 (15:43→16:20)
[2022-01-03] MEDS ORDERED: PROPOFOL IV EMULSION 10 MG/ML 20 ML VIAL IV ONE (15:43)
--- NOTE | 2022-01-03 16:17 | History & Physical Bridge Note ---
Date of Service January 03, 2022 History & Physical Bridge Note I have examined the patient, reviewed the History & Physical and in the interval since the performance of the History & Physical I have noted the following changes of clinical significance: no changes noted. Met with patient preoperatively and we had a lengthy discussion regarding risk benefits mention complications of left knee irrigation and debridement with placement of antibiotic spacer and two-stage revision arthroplasty. Risk include but are not limited to infection, neurovascular injury, DVT, bone loss, stiffness, and need for subsequent surgical procedures. After reviewing these he has elected proceed with surgical intervention and written consent was obtained.
[2022-01-03] MEDS ORDERED: ROCURONIUM BROMIDE 10 MG/ML 5 ML VIAL IV ONE (16:20)
[2022-01-03] MEDS ORDERED: DEXAMETHASONE SOD INJ 4 MG/ML VIAL ONE (16:20)
[2022-01-03] MEDS ORDERED: VANCOMYCIN HCL 1000MG/20ML VIAL ONE (16:33)
[2022-01-03] MEDS ORDERED: TOBRAMYCIN SULF 40 MG/ML 2 ML VIAL ONE (16:45)
[2022-01-03] MEDS ORDERED: TOBRAMYCIN SULFATE VIAL ONE (16:46)
[2022-01-03] MEDS ORDERED: KETAMINE 50 MG/5 ML SYRINGE ONE (17:26)
[2022-01-03] MEDS ORDERED: ACETAMINOPHEN 1,000 MG/100 ML VIAL IV STA (19:11)
[2022-01-03] MEDS ORDERED: ONDANSETRON INJ 2 MG/ML 2 ML VIAL IV PRN (19:11)
[2022-01-03] MEDS ORDERED: ATROPINE SULFATE 0.1 MG/ML 10ML SYR IV PRN (19:11)
[2022-01-03] MEDS ORDERED: HYDROmorphone INJ 2 MG/ML SYR/VIAL IV PRN (19:11)
[2022-01-03] MEDS ORDERED: fentaNYL citrate 100 MCG/2 ML VIAL IV PRN (19:11)
[2022-01-03] MEDS ORDERED: ePHEDrine sulfate 50 MG/ML AMP IV PRN (19:11)
--- NOTE | 2022-01-03 19:11 | Post Operative Brief Note ---
Immediate Post Op Note v1 Date of Surgery January 03, 2022 Pre & Post Diagnosis Operation Date: 01/03/22 07:00 Pre-Op Diagnosis: (1) Infection of total left knee replacement Post-Op Diagnosis: (1) Infection of total left knee replacement I identified the patient and participated in the time-out.: Yes Procedure Operation Date: 01/03/22 07:00 Actual Procedures p Left Knee Incision and Drainage (Left) - Gus Blake DO s Explant Hardware, Implant Antibiotic Spacer(Left) - Gus Blake DO Surgeon Gus Blake DO Helicopter Engineer Jose Armando Caldwell PA-C Estimated Blood Loss 40 Findings Consistent with Post-Op Diagnosis See dictation Drains Hemovac Drain (10 fr dual trocar) Complications None
[2022-01-03] MEDS ORDERED: MAGNESIUM HYDROXIDE SUSP 30 ML UDC PO PRN (19:12)
[2022-01-03] MEDS ORDERED: bisacodyL 10 MG SUPP PR PRN (19:12)
[2022-01-03] MEDS ORDERED: NALOXONE HCL 0.4 MG/1 ML VIAL/CARP IV PRN (19:12)
[2022-01-03] MEDS ORDERED: diphenhydrAMINE 50 MG/ML VIAL IV PRN (19:13)
--- NOTE | 2022-01-03 19:33 | Operative Report ---
Post Operative Report Pre & Post Diagnosis Operation Date: 01/03/22 07:00 Pre-Op Diagnosis: (1) Infection of total left knee replacement Post-Op Diagnosis: (1) Infection of total left knee replacement I identified the patient and participated in the time-out.: Yes Procedure Operation Date: 01/03/22 07:00 Actual Procedures p Left Knee Incision and Drainage (Left) - Gus Blake DO s Explant Hardware, Implant Antibiotic Spacer(Left) - Gus Blake DO Surgeon Gus Blake DO Fast Food Assistant Restaurant Manager Jose Armando Caldwell PA-C Estimated Blood Loss 40 Findings Consistent with Post-Op Diagnosis See dictation Specimens Synovial fluid cultures Drains Hemovac Complications None Indications 56-year-old male with history of a total knee arthroplasty approximately 20 years ago and subsequent irrigation and debridement with polyethylene exchange several years ago presenting to [facility] with a chief complaint of left knee pain and swelling. Labs and inflammatory markers showed elevation concerning for infection. Synovial fluid aspiration was performed of his left knee which demonstrated findings consistent with a prosthetic joint infection. Cultures grew out Serratia. Considering these findings we had a discussion with the patient regarding the risk benefits and potential complications of the left knee explantation and placement of an antibiotic spacer with a planned two-stage revision arthroplasty. Risk include but are not limited to: Repeat infection, neurovascular injury, DVT, fracture, bone loss, arthrofibrosis, and need for additional procedures. After reviewing these he elected to proceed with surgical intervention and written consent was obtained Description of Procedure Implants: Biomet Vanguard 75 mm PS femur, Vanguard PS polyethylene 14 x 79/83 Op note: Patient was appropriately identified in the preoperative holding area and the left lower extremity was marked. He had been receiving vancomycin per protocol. He was then taken back to the operative suite. He was positioned supine on the regular OR table. After successful induction of anesthesia a nonsterile thigh tourniquet was placed on the left lower extremity. He was then prepped and draped in the standard orthopedic fashion and timeout was then performed. The left lower extremity was then held to gravity for several moments and the tourniquet was then inflated to 250 mmHg. Previous midline incision was then opened using a scalpel. Subcutaneous tissues were dissected down to the medial capsule and medial capsulotomy was performed using electrocautery. Purulent fluid was encountered and synovial fluid cultures were obtained and sent for analysis. Previous cultures from aspiration were already finalized and were growing out Serratia. At this point an extensive synovectomy was then performed. Patella was then removed using a reciprocating saw and residual patellar pegs were removed using a drill and a curette. The knee was then hyperflexed and a 3.5 mm screwdriver was used to remove the screw threaded into the PS post. The polyethylene was then removed. Attention then was turned to removal of the femoral component. Using combination of a TPS saw as well as flexible osteotomes the femur was successfully removed without any significant bone loss. There is only some mild bone loss noted over the posterior medial condyle. Attention was then turned to removal of the tibial baseplate. Again using combination of TPS saw as well as flexible osteotomes the tibial baseplate was then removed. In order to get the tibial baseplate removed a quadriceps snip had to be performed to allow exposure of the lateral condyle of the tibia and eversion of the patella to get the implant out. Once implants were removed combination of curette as well as osteotomes were used to remove any residual cement. The bone was then debrided of any devitalized tissue. The wound was then copiously irrigated using a combination of Betadine as well scrub brush and normal saline solution. This process was repeated several times for a total of 6000 L of normal saline solution. At this time drapes were then changed as well as any instrumentation and gloves. Attention was then turned to preparation for implantation of components. A 75 mm PS femur was then placed on the femur and was noted to have good fit and medial lateral coverage. A size 14 x 78/83 polyethylene was then placed. This was noted to allow full extension as well as stability with flexion to nearly 90 degrees. Implants were then removed and the knee was once again copiously irrigated and dried. Cement was then mixed using a combination of Palacos cement with gentamicin as well as vancomycin powder mixed in. Once cement mix had settled cement was then hand packed onto the femur and a 75 mm femoral component was then impacted onto the femur. Cement was then hand packed onto the proximal tibia and a 14 mm x 79/83 polyethylene was then placed on the tibia. The knee was then held in full extension while cement was allowed to harden. Any residual cement was then removed. Once cement had hardened components were noted to be in satisfactory position. Tourniquet was then deflated and any bleeding areas were cauterized using electrocautery. Attention was then turned to repair of the quad snip which was repaired using 0 antibiotic impregnated Vicryl in an interrupted fashion. Deep Hemovac was then placed. Capsular closure was then performed using a combination of 0 PDS suture in interrupted fashion followed by a running 1-0 strata fix suture. Subcutaneous tissues were then copiously irrigated and Closed using 2-0 PDS suture followed by masoud for the skin. Gauze were placed around the Hemovac exit. A sterile Silverlon dressing was then placed followed by Webril ABD and an Marko wrap. Patient tolerated the procedure well and was taken to the recovery room in hemodynamically stable condition. Jose Armando Caldwell PA-C was present throughout the duration of the case and assisted with patient positioning, draping, soft tissue management and exposure, as well as retraction and closure. I attest to the content of the Intraoperative Record and any orders documented therein. Any exceptions are noted below.
--- NOTE | 2022-01-03 20:10 | Anesthesiology Progress Note ---
Date of Service January 03, 2022 Anesthesia Post Procedure Vital Signs Vital Signs: Temp Pulse Pulse Pulse Resp BP BP 01/03/22 20:00 79 17 114/54 L 01/03/22 19:50 79 20 137/66 01/03/22 19:43 97.3 F L 79 12 125/66 01/03/22 15:31 99.7 F H 81 18 132/67 01/03/22 14:20 78 01/03/22 11:31 98.2 F 73 20 128/72 01/03/22 06:09 82 01/03/22 06:42 99.0 F 83 18 154/67 H 01/03/22 03:56 99.0 F 85 18 138/71 01/02/22 23:26 98.4 F 88 18 142/62 H 01/02/22 22:47 86 Pulse Ox O2 Del Method O2 Flow Rate 01/03/22 20:00 93 Nasal Cannula 2 01/03/22 19:50 95 Oxymask 15 01/03/22 19:43 90 Oxymask 10 01/03/22 15:31 96 Room Air 01/03/22 14:20 01/03/22 11:31 93 Room Air 01/03/22 06:09 01/03/22 06:42 93 Room Air 01/03/22 03:56 94 Room Air 01/02/22 23:26 98 Room Air 01/02/22 22:47 Pain Intensity Knee: Pain Intensity: 2 Left Knee: Pain Intensity: 4 Transfer of Care Handoff Completed per policy Notes Mental Status: alert / awake / arousable and participated in evaluation Patient Amnestic to Procedure: Yes Nausea / Vomiting: adequately controlled Pain: adequately controlled Airway Patency, RR, SpO2: stable & adequate BP & HR: stable & adequate Hydration State: stable & adequate Anesthetic Complications: no major complications apparent and Pt Satisfied with anesthetic care
[2022-01-03] MEDS: SODIUM CHLORIDE 0.9% 1000ML 1,000 ML IV SCH (20:30)
[2022-01-03] MEDS: EZETIMIBE 10 MG TABLET PO SCH (20:35)
[2022-01-03] MEDS: SENNA 8.6 MG TAB PO SCH (20:35)
[2022-01-03] MEDS: DOCUSATE SODIUM 100 MG CAP PO SCH (20:35)
[2022-01-03] MEDS: oxyCODONE HCL IR 5 MG TAB (IMMEDIATE RELEASE) PO PRN (23:35)
[2022-01-04] MEDS: CEFEPIME 2,000 MG in SYRINGE 0 ML IV SCH ×3 (03:28→21:44)
[2022-01-04] MEDS: SODIUM CHLORIDE 0.9% 1000ML 1,000 ML IV SCH (05:54)
[2022-01-04 07:29] LABS: Hematocrit (blood only) 31.3 % (40.1-51.0); Hemoglobin 10.4 g/dl (14.0-18.0); Mean Corpuscular Hemoglobin 28.9 pg (25.0-34.0); Mean Corpuscular Hgb Conc 33.2 g/dL (32.0-36.0); Mean Corpuscular Volume 86.9 fL (80.0-100.0); Mean Platelet Volume 10.4 fL (9.4-12.4); Platelet Count 411 K/uL (130-400); RDW Coefficient of Variation 13.1 % (11.5-14.5); RDW Standard Deviation 41.4 fL (36.4-46.3); White Blood Count 15.33 K/ul (4.8-10.8)
[2022-01-04 08:18] LABS: BUN Creatinine Ratio 22.3 (10-20); Calcium 8.5 mg/dl (8.5-10.1); Creatinine Clr Calc Pharmacy 85.3 ml/min; Est GFR (African American) 83.5 ml/min; Potassium 4.5 mmol/L (3.5-5.1)
[2022-01-04] MEDS: PANTOprazole 40 MG TAB PO SCH (08:39)
[2022-01-04] MEDS: INSULIN ASPART PER UNIT SC SCH ×4 (08:39→21:53)
[2022-01-04] MEDS: METOPROLOL TARTRATE 50 MG TAB PO SCH ×2 (08:39→21:38)
[2022-01-04] MEDS: ROSUVASTATIN CALCIUM 20 MG TAB PO SCH (08:39)
[2022-01-04] MEDS: buPROPion XL 300 MG TABCR PO SCH (08:39)
[2022-01-04] MEDS: DOCUSATE SODIUM 100 MG CAP PO SCH ×2 (08:39→21:38)
[2022-01-04] MEDS: MULTIVITAMIN TAB PO SCH (08:39)
[2022-01-04] MEDS: GABAPENTIN 600 MG TAB PO SCH ×2 (08:39→21:38)
[2022-01-04] MEDS: LANTUS PER UNIT CHARGE SQ SCH ×2 (08:41→21:54)
[2022-01-04 08:52] LABS: Lyme DNA PCR CSF or Synovial Not Detected (Not Detected); Lyme DNA Source SYNOVIAL FLUID
[2022-01-04] MEDS: oxyCODONE HCL IR 5 MG TAB (IMMEDIATE RELEASE) PO PRN ×2 (08:53→21:52)
--- NOTE | 2022-01-04 12:44 | Orthopedic Progress Note ---
Date of Service January 04, 2022 Assessment & Plan (1) Infection of total left knee replacement: Plan: POD 1 s/p explant infected TKA; I&D left knee; Implant articulated antibx spacer. PT/OT Protocols. WBAT with immobilizer on. Hinged knee brace ordered and to be p ut on tomorrow. DVT prophylaxis - Resume Heparin this PM or tomorrow in AM. SCD's Pain management as written. Continue IV antibx. Pt will require PICC line for IV antibx x 6 weeks. Admission and Anticipated Discharge Date Admission Date: December 31, 2021 Subjective POD 1 Pt sitting in chair at bedside getting ready to eat lunch. Pt feels much better today. Less left knee pain. No new complaints. Physical Exam Physical Exam: Dressings intact. Calves soft,NT. NV intact. Toes mobile. HV with 100ml from previous shift. Results & Data ([facility]) Vital Signs (Past 12 Hours) Vital Signs Temp Pulse Pulse Resp BP Pulse Ox O2 Del Method 01/04/22 11:15 36.9 C 105 H 18 148/73 H 92 01/04/22 08:14 101 H 01/04/22 07:59 36.9 C 105 H 20 145/78 H 92 Room Air 01/04/22 03:43 36.8 C 96 H 20 127/74 93 Room Air 01/04/22 01:33 Room Air 01/04/22 01:11 Room Air Laboratory Results Laboratory Results WBC 15.33 K/ul (4.8-10.8) H 01/04/22 07:06 RBC 3.60 M/uL (4.63-6.08) L 01/04/22 07:06 Hgb 10.4 g/dl (14.0-18.0) L 01/04/22 07:06 Hct 31.3 % (40.1-51.0) L 01/04/22 07:06 MCV 86.9 fL (80.0-100.0) 01/04/22 07:06 MCH 28.9 pg (25.0-34.0) 01/04/22 07:06 MCHC 33.2 g/dL (32.0-36.0) 01/04/22 07:06 RDW Std Deviation 41.4 fL (36.4-46.3) 01/04/22 07:06 RDW Coeff of Monica 13.1 % (11.5-14.5) 01/04/22 07:06 Plt Count 411 K/uL (130-400) H 01/04/22 07:06 MPV 10.4 fL (9.4-12.4) 01/04/22 07:06 Immature Gran % (Auto) 0.4 % 12/31/21 11:15 Neut % (Auto) 84.6 % 12/31/21 11:15 Lymph % (Auto) 6.7 % 12/31/21 11:15 Glacier % (Auto) 7.9 % 12/31/21 11:15 Eos % (Auto) 0.2 % 12/31/21 11:15 Baso % (Auto) 0.2 % 12/31/21 11:15 Reticulocyte % (Auto) 1.5 % (0.5-2.0) 01/02/22 06:31 Neut # (Auto) 10.64 K/uL (1.4-6.5) H 12/31/21 11:15 Lymph # (Auto) 0.84 K/uL (1.2-3.4) L 12/31/21 11:15 Glacier # (Auto) 0.99 K/uL (0.24-0.82) H 12/31/21 11:15 Eos # (Auto) 0.03 K/uL (0-0.50) 12/31/21 11:15 Baso # (Auto) 0.03 K/uL (0-0.2) 12/31/21 11:15 Reticulocyte # 0.05 10^6/uL (0.02-0.10) 01/02/22 06:31 Immature Gran # (Auto) 0.05 K/uL (0.00-0.02) H 12/31/21 11:15 ESR 75 mm/hr (0-20) H 01/01/22 06:00 Immature Retic Fraction 14.0 % (2.3-13.4) H 01/02/22 06:31 Retic Hgb Content 27.6 pg (28.2-36.6) L 01/02/22 06:31 Sodium 131 mmol/L (136-145) L 01/04/22 07:06 Potassium 4.5 mmol/L (3.5-5.1) D 01/04/22 07:06 Chloride 102 mmol/L (98-107) 01/04/22 07:06 Carbon Dioxide 22 mmol/L (21-32) 01/04/22 07:06 Anion Gap 7 (3-11) 01/04/22 07:06 BUN 25 mg/dl (6-23) H 01/04/22 07:06 Creatinine 1.12 mg/dl (0.6-1.4) 01/04/22 07:06 Est Cr Clr Drug Dosing 85.3 ml/min 01/04/22 07:06 Est GFR ( Amer) 83.5 ml/min 01/04/22 07:06 Est GFR (Non-Af Amer) 72.0 ml/min 01/04/22 07:06 BUN/Creatinine Ratio 22.3 (10-20) H 01/04/22 07:06 Glucose 221 mg/dl (70-99(Fasting)) H 01/04/22 07:06 POC Glucose 314 mg/dl (70-99) H* 01/04/22 11:32 Estimat Average Glucose 255 mg/dl 01/01/22 06:00 Hemoglobin A1c 10.5 % (4.5-5.6) H 01/01/22 06:00 Lactate 0.9 mmol/L (0.4-2.0) 12/31/21 15:42 Calcium 8.5 mg/dl (8.5-10.1) 01/04/22 07:06 Magnesium 2.0 mg/dl (1.7-2.4) 01/04/22 07:06 Iron 19 mcg/dl (35-175) L 01/02/22 06:31 Unsaturated IBC 172 mcg/dl (155-355) 01/02/22 06:31 Ferritin 61.1 ng/ml (8-388) 01/02/22 06:31 Total Bilirubin 0.7 mg/dl (0.2-1.0) 12/31/21 11:15 AST 48 U/L (13-39) H 12/31/21 11:15 ALT 32 U/L (7-52) 12/31/21 11:15 Alkaline Phosphatase 83 U/L (34-104) 12/31/21 11:15 Ammonia 22.0 umol/L (18-72) 12/31/21 15:46 C-Reactive Protein 24.82 mg/dl (0-0.5) H 01/01/22 06:00 Total Protein 7.1 gm/dl (6.0-8.3) 12/31/21 11:15 Albumin 3.5 gm/dl (3.4-5.0) 12/31/21 11:15 Globulin 3.6 gm/dl (2.5-4.0) 12/31/21 11:15 Albumin/Globulin Ratio 1.0 (0.9-2) 12/31/21 11:15 Vitamin B12 998 pg/ml (180-914) H 01/02/22 06:31 Folate 15.53 ng/ml (>5.38) 01/02/22 06:31 Procalcitonin 1.78 ng/ml (0-0.5) H 12/31/21 Unknown Fld Lyme DNA (PCR) Not Detected (Not Detected) 12/31/21 18:22 Fluid Comment 12/31/21 18:22 Synovial Source Knee 12/31/21 18:22 Synovial Color Pale Yellow 12/31/21 18:22 Synovial Appearance Turbid 12/31/21 18:22 Synovial WBC 65184 /ul (0-200) H 12/31/21 18:22 Synovial RBC 16819 /uL 12/31/21 18:22 Synovial Polynuclear % 97.0 % 12/31/21 18:22 Synovial Mononuclear % 30.0 % 12/31/21 18:22 Synovial Crystals 12/31/21 18:22 Nasal Screen MRSA (PCR) Negative (Negative) 12/31/21 15:00 Lyme Specimen Source SYNOVIAL FLUID 12/31/21 18:22 Lyme DNA Comment see note 12/31/21 18:22 Enterobacterales (PCR) DETECTED (NotDetected) A 12/31/21 11:45 SARS-CoV-2, RNA, NAAT NEGATIVE (NEGATIVE) 12/31/21 11:50 Serratia marcescens PCR DETECTED (NotDetected) A 12/31/21 11:45 blaIMP Car res Gene PCR Not Detected (NotDetected) 12/31/21 11:45 KPC-Carbap Res Gene PCR Not Detected (NotDetected) 12/31/21 11:45 blaNDM Car Res Gene PCR Not Detected (NotDetected) 12/31/21 11:45 OXA-48 Carbapenem Resis Gene (PCR) Not Detected (NotDetected) 12/31/21 11:45 blaVIM Car Res Gene PCR Not Detected (NotDetected) 12/31/21 11:45 CTX-M Gene Resistance (PCR) Not Detected (NotDetected) 12/31/21 11:45 Bld Cult ID Panel PCR See PCR Comment (NotDetected) 12/31/21 11:45
--- NOTE | 2022-01-04 13:51 | Hospitalist Progress Note ---
Date of Service January 04, 2022 Assessment & Plan (1) Infected prosthetic knee joint: Plan: Left knee with recurrent infection. Joint aspiration fluid from 12/31 growing Serratia. Also with bacteremia. - Continue cefepime x 6 weeks. - Follow cultures -> Growing Serratia marcescens with intermediate sensitivity to ceftriaxone, but otherwise sensitive. - Orthopedics consulted - Washout on 01/03 with explantation and antibiotic spacer. Plan for re-due in 6 weeks or so. - ID consulted - appreciate recs - Repeat blood cultures on 01/02 with no growth so far. Can order PICC today or tomorrow AM. (2) DM type 2 (diabetes mellitus, type 2): Plan: A1c is 10.5%. - Continue long-acting insulin glargine 50 units SQ BID for now (reduce dose for NPO on Saturday) - Sliding scale insulin -> Blood sugars 130 - 310 in last 24 hours. Will tighten scale. (3) Diastolic heart failure: Plan: Patient is not in acute diastolic heart failure. - Hold home ASA & lisinopril - Lowered dose of metoprolol to 50 mg PO BID from 100 mg PO BID for now. - Presently appears euvolemic, but will restart home Lasix. (4) Anemia: Plan: Baseline hgb ~11 - 12. Now down to 9.7. No signs of acute bleeding. Anemia labs shows anemia of chronic disease. - Monitor (5) Hypertension: Plan: BP today is 150/65. - Continue beta-josias as above - Hold calcium channel josias (6) Sleep apnea: Plan: - Patient will be continued on CPAP at 12 cm of water (7) Depression: Plan: - Continue Wellbutrin (8) CKD (chronic kidney disease): Plan: Baseline Cr ~1.2 - 1.5, CKD Stage II. Presently at baseline. - Monitor (9) DVT prophylaxis: Plan: Heparin 5,000 units SQ BID Plan Heparin abuse for DVT prevention at this time Admission and Anticipated Discharge Date Admission Date: December 31, 2021 Subjective Stable today. No major issues. Feels well. Reports no fevers/chills, chest pain, shortness of breath, abdominal pain, nausea, or vomiting. Physical Exam Constitutional: WD/WN, vitals as above Eyes: EOM intact bilaterally; no conjunctival abnormality ENMT: external ear and nose normal, oropharynx normal Neck: trachea midline, no thyromegaly normal visual inspection Respiratory: normal respiratory effort, lungs clear to auscultation no respiratory distress Cardiovascular: RRR, no murmur, no edema Gastrointestinal (Abdomen): Inspection/Auscultation: abdomen normal to inspection; abdomen not distended Musculoskeletal: no cyanosis or clubbing, extremities motor strength 5/5 Knee: + knee abnormal to inspection (On left side) and + skin erythema Skin: no rashes, warm and dry + ulcer (Left heel) Neurologic: moves all extremities and awake Psychiatric: Orientation: alert, oriented to person and cooperative Results & Data Results & Data ([facility]) Vital Signs (Past 12 Hours) Vital Signs Temp Pulse Pulse Resp BP Pulse Ox O2 Del Method 01/04/22 11:15 36.9 C 105 H 18 148/73 H 92 01/04/22 08:14 101 H 01/04/22 07:59 36.9 C 105 H 20 145/78 H 92 Room Air 01/04/22 03:43 36.8 C 96 H 20 127/74 93 Room Air PG Care Time/CCT Total # of Minutes Spent Total Time Spent with Patient: Total time spent is greater than 50% in coordination of care (as documented) at patient's floor/unit and/or counseling patient: Coding Level of Care Code 00310 Subseq Hosp Care Lvl 3 Diagnoses Infected prosthetic knee joint T84.59XA; Z96.659 DM type 2 (diabetes mellitus, type 2) E11.9 Diastolic heart failure I50.30 Anemia D64.9 Hypertension I10 Sleep apnea G47.30 Depression F32.9 CKD (chronic kidney disease) N18.9 DVT prophylaxis Z29.9
--- NOTE | 2022-01-04 14:00 | XRay Report ---
XR knee LT 1 or 2V routine HISTORY: 56 years-old Male s/p implant spacer left knee total joint arthroplasty COMPARISON: 12/31/2021 TECHNIQUE: 2 views of the left knee FINDINGS: Total joint arthroplasty. Interval removal of the tibial hardware with placement of an implant spacer . Anterior midline skin masoud are present along with expected postoperative soft tissue swelling wi th deep tissue air. Surgical drainage catheter in place. No acute fracture or malalignment identified . The study however is limited secondary to positioning. Arterial calcifications. IMPRESSION: Expected postoperative changes. ACT 112: Negative or not required by law. The above report was generated using voice recognition software. It may contain grammatical, syntax o r spelling errors. Electronically signed by: Gus Haider M.D. 01/04/2022 1:59 PM
--- NOTE | 2022-01-04 15:14 | Infectious Disease Progress Nt ---
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 On admission, BP was decreased but improved after fluid. Patient was febrile to 38.4 Initial labs show WBC 12, hgb 11.3. Creatinine 1.6. glucose 145. PCT 1.7. Chest xray was negative for acute infection. Left lower extremity dopplers neg ative for DVT. L knee xray negative for fracture. Total TKA noted. Patient as started on Vancomycin and Zosyn overnight. 12/31 Blood cultures are now growing Serratia. ID has been consulted. Patient noted to have levofloxacin intolerance (GI symptoms) 01/02 Blood cultures No growth 01/03 OR for explant total, with abx spacer, no complications Recommend: -Cefepime 2G IV TID -F/u OR cultures, likely growing Serratia -PICC line -Anticipate 6 week duration of therapy pending OR findings, Anticipate Cefepime 2G IV TID x 6 weeks through 02/14/22, if OR cx are growing same specimen/sensis (anticipated) (2) Infection of total left knee replacement: Plan: [place] [address] Yu. L knee PJI [place] [address] José. Which grew some streptococcus, currently on suppressive abx therapy. initially was on amoxicillin suppressive therapy but this was extended and changed to cephalexin by Dr. Garcia, ID 12/31 aspiration, serratia 01/03 Explant with spacer (3) Cellulitis: Plan: MRI of foot is negative for osteomyelitis Plan ID will follow with you. No changes to Antibiotics today. Lyndsey Chandra MD [facility], [facility] Connect 30min spent charting and documenting. Admission and Anticipated Discharge Date Admission Date: December 31, 2021 Subjective This patient recommendation is based on a telemedicine consult request which was completed asynchronously through chart review and information provided by the primary physician. The patient was not seen or examined today. The evaluation is consultative in nature and all patient care and treatment decisions can either be accepted or rejected by the patient's primary hospital-based treating physician using their own independent medical judgment for their patient. Patient not seen. 24 hours: POD #1 s/p removal of knee hardware and placement of abx spacer VSS, WBC increased to 15 L synovial fluid: many wbcs, no orgs, CX GNB Review of System N/A econsultation Physical Exam Physical Exam: N/A econsultation Results & Data ([facility]) Vital Signs (Past 12 Hours) Vital Signs Temp Pulse Pulse Resp BP Pulse Ox O2 Del Method 01/04/22 11:15 36.9 C 105 H 18 148/73 H 92 01/04/22 08:14 101 H 01/04/22 07:59 36.9 C 105 H 20 145/78 H 92 Room Air 01/04/22 03:43 36.8 C 96 H 20 127/74 93 Room Air Laboratory Results Gram Stain Final 01/03/22-2113 Gram Stain Result Many WBCs Seen No Organisms Seen Aero/Edna Cult Preliminary 01/04/22-1349 Organism 1 Gram negative bacilli Medications Cefepime HCl 2,000 mg/ Syringe 20 mls @ 5 mls/min IV Q8H ALL; Protocol Stop: 01/15/22 11:59 Laboratory Tests 01/03/22 01/04/22 01/04/22 06:39 07:06 07:06 WBC 11.72 H 15.33 H Plt Count 411 H Sodium 131 L Medications Administered Medications Cefepime HCl 2,000 mg/ Syringe 20 mls @ 5 mls/min IV Q8H ALL; Protocol Stop: 01/15/22 11:59 Cefepime HCl 2,000 mg/ Syringe 20 mls @ 5 mls/min IV TID ALL; Protocol Stop: 01/18/22 20:59 (1) Cellulitis Laterality: left Site of cellulitis: extremity Site of cellulitis of extremity: lower extremity Qualified Code(s): L03.116 - Cellulitis of left lower limb
[2022-01-04] MEDS: EZETIMIBE 10 MG TABLET PO SCH (21:37)
[2022-01-04] MEDS: SENNA 8.6 MG TAB PO SCH (21:38)
[2022-01-04] MEDS: HEPARIN SOD 5,000 UNIT/0.5 ML VIAL SQ SCH (21:39)
[2022-01-04] MEDS: ACETAMINOPHEN 325 MG TAB PO PRN (21:53)
[2022-01-05 07:42] LABS: Hemoglobin 9.8 g/dl (14.0-18.0); Mean Corpuscular Hemoglobin 29.1 pg (25.0-34.0); Mean Corpuscular Hgb Conc 33.8 g/dL (32.0-36.0); Mean Corpuscular Volume 86.1 fL (80.0-100.0); Mean Platelet Volume 10.3 fL (9.4-12.4); Platelet Count 450 K/uL (130-400); Red Blood Count 3.37 M/uL (4.63-6.08); White Blood Count 12.78 K/ul (4.8-10.8)
[2022-01-05] MEDS: MULTIVITAMIN TAB PO SCH (07:48)
[2022-01-05] MEDS: METOPROLOL TARTRATE 50 MG TAB PO SCH ×2 (07:48→20:29)
[2022-01-05] MEDS: buPROPion XL 300 MG TABCR PO SCH (07:49)
[2022-01-05] MEDS: GABAPENTIN 600 MG TAB PO SCH ×2 (07:49→20:27)
[2022-01-05] MEDS: ROSUVASTATIN CALCIUM 20 MG TAB PO SCH (07:49)
[2022-01-05] MEDS: HEPARIN SOD 5,000 UNIT/0.5 ML VIAL SQ SCH ×2 (07:50→20:27)
[2022-01-05] MEDS: DOCUSATE SODIUM 100 MG CAP PO SCH ×2 (07:50→20:26)
[2022-01-05] MEDS: PANTOprazole 40 MG TAB PO SCH (07:50)
[2022-01-05] MEDS: FUROSEMIDE 20 MG TAB PO SCH (07:50)
[2022-01-05] MEDS: CEFEPIME 2,000 MG in SYRINGE 0 ML IV SCH ×3 (07:53→20:37)
[2022-01-05] MEDS: LANTUS PER UNIT CHARGE SQ SCH ×2 (08:05→20:39)
[2022-01-05] MEDS: INSULIN ASPART PER UNIT SC SCH ×4 (08:06→20:38)
[2022-01-05 08:10] LABS: BUN Creatinine Ratio 25.6 (10-20); Calcium 8.5 mg/dl (8.5-10.1); Est GFR (African American) 79.2 ml/min; Est GFR (Non-African American) 68.3 ml/min; Magnesium 2.1 mg/dl (1.7-2.4)
--- NOTE | 2022-01-05 09:27 | Infectious Disease Progress Nt ---
Date of Service January 05, 2022 Assessment & Plan (1) Gram-negative bacteremia: Plan: 56 yo M with history of poorly controlled diabetes with peripheral neuropathy, hyperlipidemia, depression, JENNIFFER, insomnia, partial amputation of his right great toe, L knee streptococcal TKA s/p revision 2019 on oral suppressive cephalexin admitted on 12/31 with left knee pain Patient now with infected Serratia L knee PJI and bacteremia. On admission, BP was decreased but improved after fluid. Patient was febrile to 38.4 Initial labs show WBC 12, hgb 11.3. Creatinine 1.6. glucose 145. PCT 1.7. Chest xray was negative for acute infection. Left lower extremity dopplers neg ative for DVT. L knee xray negative for fracture. Total TKA noted. Patient as started on Vancomycin and Zosyn overnight. 12/31 Blood cultures are now growing Serratia.(I: Ceftriaxone) ID has been con sulted. Patient noted to have levofloxacin intolerance (GI symptoms) MICRO: 12/31 L knee aspiration: Serratia I: Ceftriaxone 01/02 Blood cultures No growth 01/03 OR for explant total, with abx spacer, no complications, OR CULTURES Serratia: No resistance OR cultures are growing panS Serratia but prior aspiration and blood cultures are growing Serratia I to ceftriaxone. Recommend c/w Cefepime to cover both strains. Recommend: -Cefepime 2G IV TID -PICC line -Anticipate 6 week duration of therapy pending OR findings, Anticipate Cefepime 2G IV TID x 6 weeks through 02/14/22 -Once antbiotics have completed recommend 2-8 weeks of observation prior to reimplantation -Weekly CBC with diff, CMP to be sent to patients primary team. -Would try to arrange outpatient ID follow up for patient for at least 1-2 visits ID will sign off at this time. Please call with any questions. Lyndsey Chandra MD [facility], [facility] (2) Infection of total left knee replacement: Plan: [place] [address] Yu. L knee PJI [place] [address] José. Which grew some streptococcus, currently on suppressive abx therapy. initially was on amoxicillin suppressive therapy but this was extended and changed to cephalexin by Dr. Garcia, ID 12/31 aspiration, serratia 01/03 Explant with spacer (3) Cellulitis: Plan: MRI of foot is negative for osteomyelitis Plan Lyndsey Chandra MD [facility], [facility] 30min spent charting and documenting. Admission and Anticipated Discharge Date Admission Date: December 31, 2021 Subjective Subsequent visit was provided via telemedicine using two-way real-time interactive telecommunication between the patient and the telemedicine provider. For the duration of the visit, the provider was performing the assessment from a different facility than the patient. This includesuse of bluetooth stethoscope forauscultationperformed by the telepresenter that the telemedicine provider can hear if described in the physical exam. [employer] contact information: Please call [facility] . (Phone Number For Physician Use Only) After establishing a telemedicine visit, patient was: Patient was verified with two unique identifiers, Patient/authorized rep acknowledged consent and understanding and Gave permission to continue telehealth session Subsequent Time Spent w Inpatient: 25 minutes Patient denies F/C/N/V, no diarrhea, no abdominal pain, 24 hours:POD #2 s/p removal of knee hardware and placement of abx spacer VSS, WBC increased to 15 L synovial fluid: many wbcs, no orgs, CX Serratia, no resistance noted Review of System as per subjective Physical Exam Constitutional: WD/WN, vitals as above well developed; no acute distress Gastrointestinal (Abdomen): normal bowel sounds, soft, nontender, no hepatosplenomegaly Skin: no rashes, warm and dry L knee wrapped, Suction, dark bloody fluid Results & Data ([facility]) Vital Signs (Past 12 Hours) Vital Signs Temp Pulse Pulse Resp BP Pulse Ox O2 Del Method 01/05/22 07:41 37.0 C 85 18 135/72 95 Room Air 01/05/22 03:06 36.8 C 80 16 121/69 93 Room Air 01/04/22 22:14 101 H 01/04/22 22:50 37.0 C 101 H 18 114/58 L 95 Room Air Laboratory Results Medications Cefepime HCl 2,000 mg/ Syringe 20 mls @ 5 mls/min IV Q8H ALL; Protocol Stop: 01/15/22 11:59 Laboratory Tests 01/05/22 01/05/22 07:12 07:12 WBC 12.78 H Hgb 9.8 L Hct 29.0 L Plt Count 450 H Sodium 132 L BUN 30 H Creatinine 1.17 Spec: [id number] Collected: 01/03/22 Received: 01/03/[address]: Gus Blake DO Copy To: Narendra Mckinney MD Source: Knee OV Order: Ordered: Aer/Edna Cult/Sm Comments: Comment 1. Left Knee Synovial Fluid Procedure Result Verified Site Gram Stain Final 01/03/22 Gram Stain Result Many WBCs Seen No Organisms Seen Aero/Edna Cult Preliminary 01/05/22 Organism 1 Serratia marcescens Quantity Rare Sens Sensitivities to Follow S marcesc RX M.I.C. --- --------- Cefepime S <=2 Ceftriaxone S <=1 Ciprofloxacin S <=0.25 Ertapenem S <=0.5 Gentamicin S <=4 Levofloxacin S <=0.5 Meropenem S <=1 Tobramycin S <=4 Trimeth/Sulfa S <=2/38 Pip/Tazo S <=16 S = SENSITIVE I = INTERMEDIATE R = RESISTANT Microbiology 12/31/21 18:22 Joint Fluid,Knee Gram Stain - Final 12/31/21 11:45 Blood Aerobic Blood Culture - Final 12/31/21 11:45 Blood Anaerobic Blood Culture - Final Serratia marcescens Serratia marcescens 12/31/21 18:22 Joint Fluid,Knee Aerobic and Anaerobic Culture - Preliminary [place] [address] / Director: Luis Robles M.D. Clinical Laboratory Report Name: [place] LOMBARDI Kristine Acct: [id number] Status: ADM IN : 1965 [facility] Date: 12/31/21 Age: 56 Sex: M Dis Date: Loc: [address]/Bed: [facility] Spec: [id number] Collected: 12/31/21 Received: 12/31/[address]: Kaushal Carrington MD Copy To: Narendra Mckinney MD Source: Joint Fluid,Knee OV Order: Ordered: Aer/Edna Cult/Sm Comments: Comment Left Knee Procedure Result Verified Site Gram Stain Final 01/01/2245 Gram Stain Result Many Polys and Few Mononucleated Cells No Organisms Seen Aero/Edna Cult Preliminary 01/04/22-1000 Organism 1 Serratia marcescens Quantity Moderate Sens Sensitivities to Follow No Anaerobes Isolated No Anaerobes Isolated S marcesc RX M.I.C. --- --------- Cefepime S <=2 Ceftriaxone I 2 Ciprofloxacin S <=0.25 Ertapenem S <=0.5 Gentamicin S <=4 Levofloxacin S <=0.5 Meropenem S <=1 Tobramycin S <=4 Trimeth/Sulfa S <=2/38 Pip/Tazo S <=16 S = SENSITIVE I = INTERMEDIATE R = RESISTANT Medications Administered Medications Cefepime HCl 2,000 mg/ Syringe 20 mls @ 5 mls/min IV Q8H [facility]; Protocol Stop: 01/15/22 11:59 (1) Cellulitis Laterality: left Site of cellulitis: extremity Site of cellulitis of extremity: lower extremity Qualified Code(s): L03.116 - Cellulitis of left lower limb
[2022-01-05] MEDS: oxyCODONE HCL IR 5 MG TAB (IMMEDIATE RELEASE) PO PRN ×2 (10:16→14:22)
--- NOTE | 2022-01-05 13:02 | Hospitalist Progress Note ---
Date of Service January 05, 2022 Assessment & Plan (1) Infected prosthetic knee joint: Plan: Left knee with recurrent infection. Joint aspiration fluid from 12/31 growing Serratia. Also with bacteremia. - Continue cefepime x 6 weeks. - Follow cultures -> Growing Serratia marcescens with intermediate sensitivity to ceftriaxone, but otherwise sensitive. - Orthopedics consulted - Washout on 01/03 with explantation and antibiotic spacer. Plan for re-due in 6 weeks or so. - ID consulted - appreciate recs - Repeat blood cultures on 01/02 with no growth so far. PICC ordered today. (2) DM type 2 (diabetes mellitus, type 2): Plan: A1c is 10.5%. - Continue long-acting insulin glargine 50 units SQ BID for now (reduce dose for NPO on Saturday) - Sliding scale insulin -> Blood sugars 130 - 190 in last 24 hours. (3) Diastolic heart failure: Plan: Patient is not in acute diastolic heart failure. - Hold home ASA & lisinopril - Lowered dose of metoprolol to 50 mg PO BID from 100 mg PO BID for now. - Presently appears euvolemic, but will restart home Lasix. (4) Anemia: Plan: Baseline hgb ~11 - 12. Now down to 9.7. No signs of acute bleeding. Anemia labs shows anemia of chronic disease. - Monitor (5) Hypertension: Plan: BP today is 125/65. - Continue beta-josias as above - Hold calcium channel josias (6) Sleep apnea: Plan: - Patient will be continued on CPAP at 12 cm of water (7) Depression: Plan: - Continue Wellbutrin (8) CKD (chronic kidney disease): Plan: Baseline Cr ~1.2 - 1.5, CKD Stage II. Presently at baseline. - Monitor (9) DVT prophylaxis: Plan: Heparin 5,000 units SQ BID Admission and Anticipated Discharge Date Admission Date: December 31, 2021 Subjective Doing well today. Some pain in the left knee, but otherwise good. Reports no fevers/chills, chest pain, shortness of breath, abdominal pain, nausea, or vomiting. Physical Exam Constitutional: WD/WN, vitals as above Eyes: EOM intact bilaterally; no conjunctival abnormality ENMT: external ear and nose normal, oropharynx normal Neck: trachea midline, no thyromegaly normal visual inspection Respiratory: normal respiratory effort, lungs clear to auscultation no respiratory distress Cardiovascular: RRR, no murmur, no edema Gastrointestinal (Abdomen): Inspection/Auscultation: abdomen normal to inspection; abdomen not distended Musculoskeletal: no cyanosis or clubbing, extremities motor strength 5/5 Knee: + knee abnormal to inspection (On left side) and + skin erythema Skin: no rashes, warm and dry + ulcer (Left heel) Neurologic: moves all extremities and awake Psychiatric: Orientation: alert, oriented to person and cooperative Results & Data Results & Data ([facility]) Vital Signs (Past 12 Hours) Vital Signs Temp Pulse Resp BP Pulse Ox O2 Del Method 01/05/22 11:06 37.1 C 85 18 124/72 94 Room Air 01/05/22 07:41 37.0 C 85 18 135/72 95 Room Air 01/05/22 03:06 36.8 C 80 16 121/69 93 Room Air PG Care Time/CCT Total # of Minutes Spent Total Time Spent with Patient: Total time spent is greater than 50% in coordination of care (as documented) at patient's floor/unit and/or counseling patient: Coding Level of Care Code 46741 Subseq Hosp Care Lvl 2 Diagnoses Infected prosthetic knee joint T84.59XA; Z96.659 DM type 2 (diabetes mellitus, type 2) E11.9 Diastolic heart failure I50.30 Anemia D64.9 Hypertension I10 Sleep apnea G47.30 Depression F32.9 CKD (chronic kidney disease) N18.9 DVT prophylaxis Z29.9
--- NOTE | 2022-01-05 13:51 | Orthopedic Progress Note ---
Date of Service January 05, 2022 Assessment & Plan (1) Infection of total left knee replacement: Plan: POD 2 s/p explant infected TKA; I&D left knee; Implant articulated antibx spacer. PT/OT Protocols. WBAT with immobilizer on. Hinged knee brace ordered and to be p ut on today. Awaiting orthotics to place brace. DVT prophylaxis - Heparin, SCD's Pain management as written. Continue IV antibx. PICC line has been placed. Pt will require PICC line for IV antibx x 6 weeks. Admission and Anticipated Discharge Date Admission Date: December 31, 2021 Subjective Postop day 2 Patient lying in bed awake and alert. Having some pain in the with range of motion. Patient states that he is having good pain control at rest. Dr. Pinto is present for the exam. Patient has no other complaints at this time. Physical Exam Physical Exam: Dressings removed. Hemovac discontinued. Sierra dressing is intact with scant drainage. Mild swelling noted. No overt erythema noted around the knee. Patient has moderate tenderness over the medial aspect of the knee compared to lateral. 4 x 4 gauze were placed over the drain site and an Marko wrap was wrapped around the knee. Calves are soft and nontender. Toes are mobile. Results & Data ([facility]) Vital Signs (Past 12 Hours) Vital Signs Temp Pulse Resp BP Pulse Ox O2 Del Method 01/05/22 11:06 37.1 C 85 18 124/72 94 Room Air 01/05/22 07:41 37.0 C 85 18 135/72 95 Room Air 01/05/22 03:06 36.8 C 80 16 121/69 93 Room Air Laboratory Results 01/05/22 01/05/22 01/05/22 Range/Units 11:46 07:38 07:12 WBC (4.8-10.8) K/ul RBC (4.63-6.08) M/uL Hgb (14.0-18.0) g/dl Hct (40.1-51.0) % MCV (80.0-100.0) fL MCH (25.0-34.0) pg MCHC (32.0-36.0) g/dL RDW Std Deviation (36.4-46.3) fL RDW Coeff of Monica (11.5-14.5) % Plt Count (130-400) K/uL MPV (9.4-12.4) fL Sodium 132 L (136-145) mmol/L Potassium 4.0 (3.5-5.1) mmol/L Chloride 100 (98-107) mmol/L Carbon Dioxide 25 (21-32) mmol/L Anion Gap 7 (3-11) BUN 30 H (6-23) mg/dl Creatinine 1.17 (0.6-1.4) mg/dl Est Cr Clr Drug Dosing 82.0 ml/min Est GFR ( Amer) 79.2 ml/min Est GFR (Non-Af Amer) 68.3 ml/min BUN/Creatinine Ratio 25.6 H (10-20) Glucose 191 H (70-99(Fasting)) mg/dl POC Glucose 146 H 192 H (70-99) mg/dl Calcium 8.5 (8.5-10.1) mg/dl Magnesium 2.1 (1.7-2.4) mg/dl 01/05/22 01/04/22 01/04/22 Range/Units 07:12 21:40 16:30 WBC 12.78 H (4.8-10.8) K/ul RBC 3.37 L (4.63-6.08) M/uL Hgb 9.8 L (14.0-18.0) g/dl Hct 29.0 L (40.1-51.0) % MCV 86.1 (80.0-100.0) fL MCH 29.1 (25.0-34.0) pg MCHC 33.8 (32.0-36.0) g/dL RDW Std Deviation 41.0 (36.4-46.3) fL RDW Coeff of Monica 13.0 (11.5-14.5) % Plt Count 450 H (130-400) K/uL MPV 10.3 (9.4-12.4) fL Sodium (136-145) mmol/L Potassium (3.5-5.1) mmol/L Chloride (98-107) mmol/L Carbon Dioxide (21-32) mmol/L Anion Gap (3-11) BUN (6-23) mg/dl Creatinine (0.6-1.4) mg/dl Est Cr Clr Drug Dosing ml/min Est GFR ( Amer) ml/min Est GFR (Non-Af Amer) ml/min BUN/Creatinine Ratio (10-20) Glucose (70-99(Fasting)) mg/dl POC Glucose 146 H 247 H (70-99) mg/dl Calcium (8.5-10.1) mg/dl Magnesium (1.7-2.4) mg/dl
[2022-01-05] MEDS: EZETIMIBE 10 MG TABLET PO SCH (20:26)
[2022-01-05] MEDS: SENNA 8.6 MG TAB PO SCH (20:30)
[2022-01-06 05:48] LABS: Hematocrit (blood only) 27.7 % (40.1-51.0); Hemoglobin 9.3 g/dl (14.0-18.0); Mean Corpuscular Hgb Conc 33.6 g/dL (32.0-36.0); Mean Corpuscular Volume 86.3 fL (80.0-100.0); Mean Platelet Volume 9.8 fL (9.4-12.4); Platelet Count 477 K/uL (130-400); RDW Coefficient of Variation 13.2 % (11.5-14.5); RDW Standard Deviation 41.3 fL (36.4-46.3); Red Blood Count 3.21 M/uL (4.63-6.08); White Blood Count 14.57 K/ul (4.8-10.8)
[2022-01-06 06:10] LABS: Albumin Globulin Ratio 0.8 (0.9-2); Albumin Level 2.8 gm/dl (3.4-5.0); BUN Creatinine Ratio 24.6 (10-20); Bilirubin,Total 0.4 mg/dl (0.2-1.0); Calcium 8.5 mg/dl (8.5-10.1); Creatinine Clr Calc Pharmacy 78.6 ml/min; Est GFR (African American) 75.3 ml/min; Est GFR (Non-African American) 64.9 ml/min; Globulin 3.4 gm/dl (2.5-4.0); Magnesium 2.1 mg/dl (1.7-2.4); Total Protein 6.2 gm/dl (6.0-8.3)
[2022-01-06] MEDS: oxyCODONE HCL IR 5 MG TAB (IMMEDIATE RELEASE) PO PRN ×2 (06:43→13:35)
[2022-01-06] MEDS: buPROPion XL 300 MG TABCR PO SCH (07:39)
[2022-01-06] MEDS: ROSUVASTATIN CALCIUM 20 MG TAB PO SCH (07:39)
[2022-01-06] MEDS: FUROSEMIDE 20 MG TAB PO SCH (07:40)
[2022-01-06] MEDS: DOCUSATE SODIUM 100 MG CAP PO SCH (07:40)
[2022-01-06] MEDS: PANTOprazole 40 MG TAB PO SCH (07:40)
[2022-01-06] MEDS: METOPROLOL TARTRATE 50 MG TAB PO SCH (07:41)
[2022-01-06] MEDS: HEPARIN SOD 5,000 UNIT/0.5 ML VIAL SQ SCH (07:41)
[2022-01-06] MEDS: GABAPENTIN 600 MG TAB PO SCH (07:41)
[2022-01-06] MEDS: MULTIVITAMIN TAB PO SCH (07:41)
[2022-01-06] MEDS: INSULIN ASPART PER UNIT SC SCH ×2 (08:05→13:39)
[2022-01-06] MEDS: CEFEPIME 2,000 MG in SYRINGE 0 ML IV SCH (08:08)
[2022-01-06] MEDS: LANTUS PER UNIT CHARGE SQ SCH (08:08)
--- NOTE | 2022-01-06 08:45 | Orthopedic Progress Note ---
Date of Service January 06, 2022 Assessment & Plan (1) Infection of total left knee replacement: Plan: POD 3 s/p explant infected TKA; I&D left knee; Implant articulated antibx spacer. PT/OT Protocols. WBAT with immobilizer on. Hinged knee brace ordered and to be p ut on today. . DVT prophylaxis - Heparin, SCD's Pain management as written. Continue IV antibx. PICC line has been placed. Pt will require PICC line for IV antibx x 6 weeks. Patient is orthopedic stable. Ortho will sign off at this time. Patient should follow-up with Dr. Blake 14 to 16 days postop. He can call [phone] for an appointment. Admission and Anticipated Discharge Date Admission Date: December 31, 2021 Subjective Postop day 3 Patient lying in bed awake and alert. Having some pain in the with range of motion. Patient states that he is having good pain control at rest. Patient has no other complaints at this time. Review of Systems Review of Systems: All systems reviewed & are unremarkable except as noted in Subjective Physical Exam Physical Exam: Left knee dressing is clean, dry, intact. Toes are mobile with good dorsiflexion. No calf tenderness. Distally neurovascular status and sensation intact Results & Data ([facility]) Vital Signs (Past 12 Hours) Vital Signs Temp Pulse Pulse Resp BP Pulse Ox O2 Del Method 01/06/22 08:24 37.1 C 87 20 133/73 96 Room Air 01/06/22 07:11 85 01/06/22 03:24 37.3 C 86 20 127/61 93 Room Air 01/05/22 23:35 37.4 C 93 H 18 126/63 93 Room Air 01/05/22 23:23 99 H
--- NOTE | 2022-01-06 16:01 | Discharge Summary ---
Date of Service January 06, 2022 Admission HPI Per Admitting Provider 56-year-old male brought into the emergency department for uncontrolled diabetes and some discomfort with his left knee which is replaced. The patient has had a previous knee infection with strep which required polyexchange approximately 2018 and remains on suppressive therapy with Keflex. In the emergency department plain films did not show significant derangement of his knee hardware, Doppler study of that leg is unremarkable (the leg is slightly swollen and erythematous) patient has elevated procalcitonin, elevation of white count with leftward shift and has encephalopathy with confusion In the emergency department is given vancomycin and Zosyn and blood cultures obtained pending urine culture negative chest x-ray and negative pulmonary symptoms. The patient has no peripheral stigmata of endocarditis nor new cardiac murmurs as I auscultated He previously has had diabetic foot infections and amputation partially of his right toe. There is a ecchymotic area distally which looks to be traumatic and not to be gangrene otherwise there is no other open areas on his feet Is COVID-negative on presentation Principal Diagnosis Left prosthetic knee infection Discharge Exam Constitutional WD/WN, vitals as above Eyes EOM intact bilaterally; no conjunctival abnormality ENMT external ear and nose normal, oropharynx normal Neck trachea midline, no thyromegaly normal visual inspection Respiratory normal respiratory effort, lungs clear to auscultation no respiratory distress Cardiovascular RRR, no murmur, no edema Gastrointestinal (Abdomen) Inspection/Auscultation: abdomen normal to inspection; abdomen not distended Musculoskeletal no cyanosis or clubbing, extremities motor strength 5/5 Knee: + knee abnormal to inspection (On left side) and + skin erythema Skin no rashes, warm and dry + ulcer (Left heel) Neurologic moves all extremities and awake Psychiatric Orientation: alert, oriented to person and cooperative Discharge Data Allergies Allergy/AdvReac Type Severity Reaction Status Date / Time levofloxacin AdvReac Intermediate GI SYMPTOMS Verified 12/31/21 15:16 pneumococcal vaccine AdvReac Intermediate GI Verified 12/31/21 15:16 SYMPTOMS-OK IF MULTIPLE VACCINES GIVEN SEPARATELY tetanus toxoid, adsorbed AdvReac Intermediate TETANUS/DIPTHERIA/PERTUSSIS-GI Verified 12/31/21 15:16 UPSTE/BODY ACHES Consultations 12/31/21 14:23 ED Decision to Admit Stat 12/31/21 16:48 Consult Orthopedic Surgery Routine 01/01/22 13:27 Consult Infectious Diseases Routine Procedures Performed Operation Date: 01/03/22 07:00 Actual Procedures p Left Knee Incision and Drainage (Left) - Gus Blake DO s Explant Hardware, Implant Antibiotic Spacer(Left) - Gus Blake DO Ordered Studies 12/31/21 11:33 CT head/brain wo con Stat US venous doppler LE LT Stat 01/01/22 11:32 MR ankle LT wo/w con Routine Diabetes Follow up Diabetes Follow-up Needed for HgbA1c >9% Hospital Course (1) 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 Joint aspiration fluid from 12/31 growing Serratia. Also with bacteremia. - Continue cefepime x 6 weeks (End date: 02/12/2022) - Follow cultures -> Growing Serratia marcescens with intermediate sensitivity to ceftriaxone, but otherwise sensitive. - Orthopedics consulted - Washout on 01/03 with explantation and antibiotic spacer. Plan for re-due in 6 weeks or so. - ID consulted - appreciate recs - Repeat blood cultures on 01/02 with no growth so far. - Monitor CBC, CMP, CRP, ESR weekly while on abx. (2) Elevated LFTs: LFTs noted to be elevated at AST/ALT/alk phos/Tbili: 132/115/172/0.4 on 01/06. Normal on 12/31. Presumed to be due to the cefepime (~3% risk of elevated enzymes per UTD). - Discussed with [facility] DO who is comfortable with transfer. Will closely monitor and discuss with ID re: change in abx if continue to rise. - Discontinue statin for now (3) DM type 2 (diabetes mellitus, type 2): A1c is 10.5%. - Continue long-acting insulin glargine 50 units SQ BID - Sliding scale insulin -> Blood sugars 130 - 190 in last 24 hours. (4) Diastolic heart failure: Patient is not in acute diastolic heart failure. - Continue home ASA & lisinopril - Continue metoprolol - Presently appears euvolemic, but restarted home Lasix on 01/04. (5) Anemia: Baseline hgb ~11 - 12. Now down to 9.3. No signs of acute bleeding. Anemia labs shows anemia of chronic disease. - Monitor (6) Hypertension: BP today is 125/65. - Continue beta-josias as above - Held calcium channel josias inpatient -> Did mention to [facility] provider that may want to keep this held. (7) Sleep apnea: - Patient will be continued on CPAP at 12 cm of water (8) Depression: - Continue Wellbutrin (9) CKD (chronic kidney disease): Baseline Cr ~1.2 - 1.5, CKD Stage II. Presently at baseline. - Monitor (10) DVT prophylaxis: Lovenox 40 mg daily on discharge. Will likely want to keep DVT ppx for some time given his limited mobility. Total Time Total Time Spent Total Time Spent (In Minutes): 45 Discharge Plan Discharge Items Patient Disposition: Transfer Inpatient Rehab Fac Reason For Visit: KNEE PAIN, HYPERGLYCEMIA Discharge Diagnosis: Infected left knee replacement Activity: Per Instructions section Weightbearing: Left weightbearing Weightbearing Comment: as tolerated with walker Non-emergency contact: Surgeon Call non-emergency contact if: you have any medication questions, your pain is not controlled, your temperature is above 101.5, your wound has increased redness and your wound has increased drainage Follow-up/Referrals: Dino Johnson MD [Primary Care Provider] - Gus Blake DO [Surgeon] - (Follow up with Dr. Blake in 2 weeks from the day of surgery for your first postoperative visit. ) Diet: Carb Consistent or DM2 Addtl Attending Provider Instructions: Mr. Berger, you were admitted with a left knee infection that actually also got into your bloodstream. Luckily, this is responding to antibiotics very well. You had your knee revised and will need to be on IV antibiotics for 6 weeks. Addtl Motor Bike Mechanic Provider Instructions: Please fit patient with a left hinged knee brace. (Occidental type) range of motion 0 to 30 degrees only at this time. Weightbearing as tolerated on the left lower extremity. YOU MUST WEAR YOUR HINGED KNEE BRACE AT ALL TIMES, ESCPECIALLY WHEN AMBULATING. YOU MAY REMOVE IT FOR BATHING OR CHANGING CLOTHES. NO FLEXING THE KNEE PAST 30 DEGREES AT THIS TIME. LENO Dressing - This is a large suction dressing covering your incision. This will help pull any excess drainage from the wound and allow your incision to heal properly. You may shower with this if you can keep the unit outside of the shower. If any bleeding or leakage is noted please call your doctor's office. This will remain on your incision for 7 days and then should be removed. This can be done yourself or by the home nursing staff if applicable. The entire unit is disposable once removed. Once removed, keep incision clean and dry. If redness or drainage is noted, please call your surgeon. After LENO dressing has been removed, you may get the wound wet. Do not soak it. No tub baths. No direct shower pressure on the wound. Cover wound with 4x4 gauze until seen in the office for your first postoperative visit. Follow up with Dr. Blake in 2 weeks from the day of your surgery. Please call for an appointment. [phone] Pending Studies at Discharge: No Stand-Alone Forms: My [facility] Skilled Items Patient informed of condition?: Yes DNR: No Discharge Level of Care: Acute rehab Communicable Disease: No Discharge Prognosis: Improving Lines: PICC Urinary Catheter: No Medications and DC Order Prescriptions: New oxycodone 5 mg Tablet 5 - 10 mg PO Q4H PRNQty: 0 0RF cefepime 2 gram recon soln 2 g IV Q8H Qty: 10 0RF enoxaparin [Lovenox] 40 mg/0.4 mL syringe 40 mg subcut DAILY Qty: 4 0RF Continued aspirin [Adult Low Dose Aspirin] 81 mg tablet,delayed release (DR/EC) 81 mg PO QAM metoprolol tartrate 100 mg tablet 100 mg PO BID insulin aspart U-100 [Novolog Flexpen U-100 Insulin] 100 unit/mL (3 mL) insulin pen 10 unit subcut ACHS Rx Instructions: 15 units plus sliding scale tid subcut before meals and at bedtime; per sliding scale Lantus Solostar U-100 Insulin 100 unit/mL (3 mL) insulin pen 50 unit SUBCUT BID Rx Instructions: PER PT "START AT 50 UNITS PLUS SLIDING SCALE DEPENDING ON BSG". ezetimibe [Zetia] 10 mg tablet 10 mg PO QPM bupropion HCl [Wellbutrin XL] 300 mg tablet extended release 24 hr 300 mg PO QAM metformin 1,000 mg Tablet 1,000 mg PO BIDM furosemide 20 mg Tablet 20 mg PO QAM pantoprazole 40 mg Tablet,Delayed Release (Dr/Ec) 40 mg PO QAM lisinopril 2.5 mg Tablet 2.5 mg PO QAM ergocalciferol (vitamin D2) 1,250 mcg (50,000 unit) capsule 50,000 unit PO WK Rx Instructions: TUESDAYS cyanocobalamin (vitamin B-12) 1,000 mcg/mL kit 1,000 mcg subcut WK Rx Instructions: On Fridays ondansetron HCl 4 mg Tablet 4 mg PO Q8H PRN (Reason: NAUSEA/VOMITING) verapamil 180 mg Tablet Extended Release 180 mg PO QAM Farxiga 10 mg Tablet 10 mg PO QAM cyclobenzaprine 10 mg Tablet 10 mg PO TID PRN (Reason: MUSCLE SPASMS) gabapentin 600 mg tablet 600 mg PO BID Qty: 60 0RF Discontinued rosuvastatin 40 mg Tablet 40 mg PO DAILY Discharge Orders: Discharge Order (Routine); Ordered 01/06/22 Ordered By: Navi Garvey Admission Data Admit Date/Time: 12/31/21 15:00 Attending Provider: Navi Garvey Admit Provider: Narendra Mckinney Primary Care Provider: Dino Johnson Other Providers: [facility],Home [facility] ; Narendra Mckinney ; Kaushal Carrington ; Aster Cintron ; Uli Virgen ; Marylou Sharif ; Carli Gupta ; Julieta Truong ; Lyndsey Chandra ; Pati Herron ; Ulises Ayoub ; Mony Nevarez ; [facility] Other Interventions: Discharge Summary Assessment (RN) Last Done: 01/06/22 11:27 Coding Level of Care Code D/C DAY MANAGEMENT >30 MINS Diagnoses Infected prosthetic knee joint T84.59XA; Z96.659 Elevated LFTs R79.89 DM type 2 (diabetes mellitus, type 2) E11.9 Diastolic heart failure I50.30 Anemia D64.9 Hypertension I10 Sleep apnea G47.30 Depression F32.9 CKD (chronic kidney disease) N18.9 DVT prophylaxis Z29.9
== END 2022-01-06 14:07 | DRG 466 ==
LOC: ED 09:59 → SUATTDRO 15:00 → 2N 15:00

== ENCOUNTER 2022-01-30 12:49 | Inpatient (IN) ==
--- NOTE | 2022-01-30 14:19 | XRay Report ---
SINGLE VIEW CHEST CLINICAL HISTORY: Syncope. FINDINGS: An AP, portable, upright chest radiograph is compared to study dated 12/31/2021. Correlation is made with chest CT dated 01/01/2018. A right PICC line is new from previous. The tip of the ni ter projects over the cavoatrial junction. The cardiomediastinal silhouette is top normal for project ion. There is mild bibasilar atelectasis. The lungs and pleural spaces are otherwise clear. No pneumo thorax is seen. The bony thorax is grossly intact. IMPRESSION: No acute cardiopulmonary abnormality. ACT 112: Negative or not required by law. Electronically signed by: Blaise Vinson M.D. 01/30/2022 2:17 PM
[2022-01-30 15:07] LABS: Basophils # (auto) 0.08 K/uL (0-0.2); Basophils % (auto) 0.7 %; Eosinophils # (auto) 0.38 K/uL (0-0.50); Eosinophils % (auto) 3.2 %; Hematocrit (blood only) 29.5 % (40.1-51.0); Hemoglobin 9.7 g/dl (14.0-18.0); Immature Granulocytes # (auto) 0.03 K/uL (0.00-0.02); Immature Granulocytes % (auto) 0.3 %; Lymphocytes % (auto) 6.7 %; Mean Corpuscular Hgb Conc 32.9 g/dL (32.0-36.0); Mean Corpuscular Volume 88.1 fL (80.0-100.0); Mean Platelet Volume 11.3 fL (9.4-12.4); Monocytes # (auto) 0.92 K/uL (0.24-0.82); Monocytes % (auto) 7.7 %; Neutrophils # (auto) 9.67 K/uL (1.4-6.5); Neutrophils % (auto) 81.4 %; Platelet Count 250 K/uL (130-400); RDW Coefficient of Variation 14.6 % (11.5-14.5); Red Blood Count 3.35 M/uL (4.63-6.08); White Blood Count 11.88 K/ul (4.8-10.8)
[2022-01-30 15:31] LABS: Troponin I High Sensitivity 23.2 pg/ml (0-20)
[2022-01-30 15:33] LABS: Albumin Globulin Ratio 1.1 (0.9-2); Albumin Level 3.5 gm/dl (3.4-5.0); BUN Creatinine Ratio 11.3 (10-20); Bilirubin,Total 0.4 mg/dl (0.2-1.0); Calcium 9.2 mg/dl (8.5-10.1); Creatinine Clr Calc Pharmacy 22.6 ml/min; Est GFR (African American) 16.7 ml/min; Est GFR (Non-African American) 14.4 ml/min; Globulin 3.2 gm/dl (2.5-4.0); Magnesium 1.9 mg/dl (1.7-2.4); Potassium 4.6 mmol/L (3.5-5.1); Total Protein 6.7 gm/dl (6.0-8.3)
[2022-01-30 15:59] LABS: Appearance Urine Clear (Clear); Bacteria Urine Automated Negative (Negative); Bilirubin Urine Negative (Negative); Blood Urine 1+ (Negative); Color Urine Yellow; Glucose Urine UA Negative (Negative); Ketones Urine Negative (Negative); Leukocyte Esterase Urine Negative (Negative); Nitrite Urine Negative (Negative); Protein Urine 2+ (Negative); RBC Urine Automated 0-4 /hpf (0-4); Urobilinogen Urine Negative (Negative); pH Urine 5.5 (4.5-7.5)
--- NOTE | 2022-01-30 16:09 | CT Scan Report ---
CT head/brain wo con CLINICAL HISTORY: fall, headstrike, ams Technique: Contiguous axial CT images of the head were acquired from the base of the skull to the edgard j carlos without intravenous contrast administration. Images were viewed in brain, subdural and bone [facility]. Automated dose lowering techniques and/or adjustment according to patient size were utilized for this exam. Comparison: Comparison is made to CT head 12/31/2021 Findings: Areas of decreased attenuation are present in the periventricular and subcortical white matter bilate rally consistent with small vessel ischemic disease. Generalized cerebral atrophy with commensurate e nlargement of the ventricles, sulci, and cisterns is also present. There is no acute intracranial hem orrhage or evidence of acute territorial infarction. No shift of the midline structures, mass effect, or extra-axial abnormalities are shown. Atherosclerotic calcifications are present in the intracran ial segments of the internal carotid arteries. Imaged portions of the paranasal sinuses and mastoid air cells are clear. The orbits appear normal. There are no acute fractures of the calvaria or scalp swelling. Impression: No acute intracranial hemorrhage, no evidence of acute territorial infarction or other acute intracra nial disease process. ACT 112: Negative or not required by law. Electronically signed by: Carl Deras M.D. 01/30/2022 4:08 PM
--- NOTE | 2022-01-30 16:19 | CT Scan Report ---
CT abd pelvis wo con CLINICAL HISTORY: arf, ams TECHNIQUE: Helical axial images of the abdomen and pelvis were obtained. Automated dose lowering tech niques and/or adjustment according to patient size were utilized for this exam. This exam was perfor med without intravenous contrast. CT DOSE: 1977.61 mGy.cm COMPARISON: Comparison is made to CT abdomen pelvis 08/04/2021 FINDINGS: Lower chest: Lung bases appear clear. Right PICC catheter is seen. Liver: Minimal nodularity of the liver surface is again seen. Gallbladder and biliary tree: No calcified gallstones. Normal caliber wall. No intra- or extrahepatic biliary ductal dilation. Pancreas: Unremarkable, no focal lesions. Spleen: Unremarkable. Adrenals: Unremarkable. Kidneys and ureters: Perinephric stranding is noted bilaterally. Bladder: Unremarkable. Reproductive organs: Unremarkable. Bowel: Unremarkable appearance of the bowel. The appendix is normal. Lymph nodes Retroperitoneal: Unremarkable. Pelvic: Unremarkable. Mesenteric: Unremarkable. Peritoneum: Normal. Vessels: Atherosclerotic calcifications are seen. Abdominal wall: Injection granulomata are seen. Nonspecific skin thickening is noted in the anterior abdomen, similar to prior exam. Bones: Degenerative changes in the visualized spine. Pars defects are seen at L5-S1 with grade 1 ante rolisthesis. Prominent disc disease at L1-L2 is seen. Old fractures of the left transverse processes of L1 and L2 are seen. Old healed rib fractures are partially visualized. IMPRESSION: No acute abnormalities, in particular no evidence of acute fracture or intra-abdominal trauma. ACT 112: Negative or not required by law. Electronically signed by: Carl Deras M.D. 01/30/2022 4:18 PM
[2022-01-30 16:35] LABS: Influenza A virus by PCR Negative (Neg); Influenza B virus by PCR Negative (Neg); RSV by PCR Negative (Neg); SARS CoV2 RNA(COVID-19)Cepheid NEGATIVE (Negative)
--- NOTE | 2022-01-30 17:25 | History & Physical Report ---
Date of Service January 30, 2022 Assessment & Plan (1) Infection of total left knee replacement: Plan: S/p explantation and antibiotic spacer on 01/03/[address] Blake. - Hold cefepime at this time - Orthopedics consulted - Consider switch to alternative agent -> Feel we can defer for the night as cefepime renally eliminated. As such, suspect he has supratherapeutic level at present. - ID consulted for adjustment of abx (2) Acute renal failure: Plan: Baseline CKD Stage II with CrCl ~78. Now with Cr of 4.2 on admission. Likely some pre-renal from poor eating/drinking, with possible AIN from cefepime? No urgent need for HD at this time. - IVFs started - Bladder appears to have ~260 mL in it on CT a/p on admission. Bladder scans Qshift with instructions to send me amounts. - UA ordered - Nephrology consulted (3) Fall: Plan: With possible syncope and confusion. Confusion I think is from cefepime. Would consider this metabolic encephalopathy. - Telemetry - PT/OT (4) Diastolic heart failure: Plan: Patient is not in acute diastolic heart failure. - Continue home ASA & metoprolol - Hold lisinopril for KUN - Presently appears euvolemic. Was on Lasix on discharge on 01/06; clearly hold any Lasix at this time. (5) Hypertension: Plan: BP in the ER was 105/65. - Continue metoprolol; hold lisinopril (6) Depression: Plan: - Hold Wellbutrin until KUN improving (7) Uncontrolled type 2 diabetes mellitus with diabetic neuropathy, with long- term current use of insulin: Plan: A1c is 10.5%. - Continue long-acting insulin glargine 22 units SQ BID (reduced from home dosing) - Sliding scale insulin (8) Anemia: Plan: Baseline hgb ~11 - 12. Now down to 9.3. No signs of acute bleeding. Anemia labs shows anemia of chronic disease. - Monitor (9) Sleep apnea: Plan: - Patient will be continued on CPAP at 12 cm of water (10) DVT prophylaxis: Plan: Heparin 5,000 units SQ Q12h FULL CODE - Per patient in the ER with present History of Present Illness Primary Care Provider: Dino Johnson MD 56yo M w/ hx of DM and left prosthetic knee infection presenting with acute renal failure and fall/syncope at home. Patient is fairly confused and provides contradictory history. Per , she believes he was likely sitting on the bed, slid off, and struck a night stand and broke his glasses. He is not clear and says he was standing, but then also says he was sitting on the bed. He cannot recall exactly. No known prodrome symptoms, but again, he is not sure. His notes that he is confused and "not with [her]" over the last day and half or so. She also notes that he has not been eating/drinking as much at home. Allergies Allergy/AdvReac Type Severity Reaction Status Date / Time levofloxacin AdvReac Intermediate GI SYMPTOMS Verified 01/30/22 17:09 pneumococcal vaccine AdvReac Intermediate GI Verified 01/30/22 17:09 SYMPTOMS-OK IF MULTIPLE VACCINES GIVEN SEPARATELY tetanus toxoid, adsorbed AdvReac Intermediate TETANUS/DIPTHERIA/PERTUSSIS-GI Verified 01/30/22 17:09 UPSTE/BODY ACHES Home Medications Medication Instructions Recorded Confirmed Type Unknown Antibiotic Iv 1 dose IV TID 01/30/22 History acetaminophen 500 mg tablet 500 - 1,000 mg PO Q8 PRN Pain 01/30/22 01/30/22 History (Tylenol Extra Strength) cyanocobalamin (vitamin B-12) 1,000 mcg PO DAILY 01/30/22 01/30/22 History 1,000 mcg tablet (Vitamin B-12) cyclobenzaprine 10 mg tablet 10 mg PO TID PRN Spasms 01/30/22 01/30/22 History gabapentin 600 mg tablet 600 mg PO AMHS 01/30/22 01/30/22 History insulin aspart U-100 100 unit/mL 6 unit subcut TIDWMEAL 01/30/22 01/30/22 History (3 mL) subcutaneous pen (Novolog Flexpen U-100 Insulin aspart) insulin glargine 100 unit/mL 28 unit subcut BID 01/30/22 01/30/22 History subcutaneous solution (Lantus U-100 Insulin) lisinopril 2.5 mg tablet 2.5 mg PO QAM 01/30/22 01/30/22 History melatonin 3 mg tablet 6 mg PO HS PRN Sleep 01/30/22 01/30/22 History metformin 1,000 mg tablet 1,000 mg PO BID 01/30/22 01/30/22 History metoprolol tartrate 100 mg tablet 50 mg PO AMHS 01/30/22 01/30/22 History naloxone 4 mg/actuation nasal 4 mg intranasal DAILY PRN opiod od 01/30/22 01/30/22 History spray (Narcan) oxycodone 5 mg tablet 5 mg PO Q6 PRN .moderate pain 01/30/22 01/30/22 History pantoprazole 40 mg tablet,delayed 40 mg PO QAM 01/30/22 01/30/22 History release Past Med/Surg History Medical History Anxiety and depression Attention deficit disorder (ADD) Bulging lumbar disc Cardiac murmur FOLLOWS WITH DR. GREENWOOD CHF (congestive heart failure) Diabetic peripheral neuropathy associated with type 2 diabetes mellitus DM type 2 (diabetes mellitus, type 2) GERD (gastroesophageal reflux disease) History of amputation of right great toe History of anemia History of kidney stones HTN (hypertension) Hx MRSA infection 2018> resolved Hx of diabetic foot ulcer Hyperlipidemia Obesity Osteoarthritis Sleep apnea CPAP Surgical History History of colonoscopy History of open reduction and internal fixation (ORIF) procedure RT HAND History of tooth extraction History of total left knee replacement History of wisdom tooth extraction S/P revision of total knee LEFT Family History Father Family history of diabetes mellitus Other No family history of adverse response to anesthesia No pertinent family history Social History Smoking Status: Never smoker Second Hand Exposure: No; Hx Alcohol Use: No Hx Substance Use: No Preferred Language: Hungarian Communication Ability: Effective Visual Impairment: Limited Aircraft Body Repairer Required: No Beliefs That Will Affect Care: None marital status: Current Living Situation: Spouse current occupational status: employed 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 , 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 How many Children do You have: 2 Feels Safe at Home: Yes during the past year weight has: remained stable Assistive Devices: None Review of Systems Review of Systems: All systems reviewed & are unremarkable except as noted in HPI & below Physical Exam Constitutional: WD/WN, vitals as above Eyes: EOM intact bilaterally; no conjunctival abnormality ENMT: external ear and nose normal, oropharynx normal Neck: trachea midline, no thyromegaly normal visual inspection Respiratory: normal respiratory effort, lungs clear to auscultation no respiratory distress Cardiovascular: RRR, no murmur, no edema Gastrointestinal (Abdomen): Inspection/Auscultation: abdomen normal to inspection; abdomen not distended Musculoskeletal: Left knee in brace with suture line appearing fairly well healed apart from one small area. Skin: no rashes, warm and dry Neurologic: moves all extremities and awake Psychiatric: Orientation: alert, oriented to person and cooperative Results & Data Results & Data ([facility]) Vital Signs (Past 12 Hours) Vital Signs Temp Pulse Pulse Resp BP BP Pulse Ox 01/30/22 16:45 78 18 106/65 99 01/30/22 14:57 75 16 125/60 96 01/30/22 14:00 94 H 18 98 01/30/22 12:57 16 92 01/30/22 12:57 01/30/22 13:01 36.8 C 80 18 101/73 100 O2 Del Method O2 Flow Rate 01/30/22 16:45 Room Air 01/30/22 14:57 Room Air 01/30/22 14:00 Room Air 01/30/22 12:57 Room Air 01/30/22 12:57 Room Air 0 01/30/22 13:01 Room Air Code Status & VTE Plan VTE Prophylaxis Plan VTE Prophylaxis will be ordered: Yes PG Care Time/CCT Total # of Minutes Spent Total Time Spent with Patient: Total time spent is greater than 50% in coordination of care (as documented) at patient's floor/unit and/or counseling patient: Coding Level of Care Code 23607 Initial Inpt Care Lvl 3 Diagnoses Infection of total left knee replacement T84.54XA Acute renal failure N17.9 Fall W19.XXXA Diastolic heart failure I50.30 Hypertension I10 Depression F32.9 Uncontrolled type 2 diabetes mellitus with diabetic neuropathy, with long-term current use of insulin E11.40; E11.65; Z79.4 Anemia D64.9 Sleep apnea G47.30 DVT prophylaxis Z29.9
[2022-01-30 17:48] LABS: INR 1.4 (0.9-1.1); Prothrombin Time 14.6 Seconds (9.0-12.0)
[2022-01-30] MEDS ORDERED: GLUCOSE 40% GEL 15 GM TUBE PO PRN (18:26)
[2022-01-30] MEDS ORDERED: CARBOHYDRATES FOR HYPOGLYCEMIA PO PRN (18:26)
[2022-01-30] MEDS ORDERED: ONDANSETRON INJ 2 MG/ML 2 ML VIAL IV PRN (18:26)
[2022-01-30] MEDS ORDERED: GLUCOSE 10 TAB/TUBE PO PRN (18:26)
[2022-01-30] MEDS ORDERED: GLUCAGON FOR INJ 1 MG VIAL SQ PRN (18:26)
[2022-01-30] MEDS ORDERED: DEXTROSE 50% 50 ML SYRINGE IV PRN (18:26)
[2022-01-30] MEDS ORDERED: PNEUMOCOCCAL POLYSACCHARIDES 25 MCG/0.5 ML VIAL/SYR IM ONE (18:34)
[2022-01-30] MEDS ORDERED: LORazepam 0.5 MG TAB PO STA (19:01)
[2022-01-30] MEDS: LACTATED RINGER'S 1,000 ML IV SCH (19:09)
[2022-01-30] MEDS: MELATONIN 3 MG TAB PO PRN (20:23)
[2022-01-30] MEDS: METOPROLOL TARTRATE 50 MG TAB PO SCH (20:23)
[2022-01-30] MEDS: HEPARIN SOD 5,000 UNIT/0.5 ML VIAL SQ SCH (20:24)
[2022-01-30] MEDS: ACETAMINOPHEN 325 MG TAB PO PRN (20:24)
[2022-01-30] MEDS: INSULIN ASPART PER UNIT SC SCH (20:25)
[2022-01-30] MEDS: LANTUS PER UNIT CHARGE SQ SCH (20:33)
--- NOTE | 2022-01-30 20:38 | Emergency Department Note ---
Impression & Plan Acute metabolic encephalopathy, Acute renal failure, Syncope ED Provider Note NAME: KY LOMBARDI AGE: 56 SEX: M ARRIVES VIA: Ambulance INFORMANT: Patient, ED PROVIDER(S): Carter Juárez MD CHIEF COMPLAINT: Syncope, confusion PLAN: Disposition: Admit MEDICAL DECISION MAKING: The patient is a pleasant 56-year-old gentleman with a past medical history of uncontrolled diabetes, recent complicated medical course where he was hospitalized for infection of his left prosthetic knee where he had surgical I&D and explant of his hardware with implant of antibiotic spacer subsequently discharged to acute rehab at [facility] where he was discharged approximately a week ago to home with ongoing IV cefepime 2 g 3 times daily via his PICC line w radha presents to the emergency department today via EMS for evaluation of progressive confusion from baseline and dizziness with a syncopal episode that occurred today where he did hit his head. His denies any recent fevers, nausea, vomiting or diarrhea. She does report that she feels he has been urinating less and need to eat and drink less as well. On arrival the patient is acute on chronically ill-appearing, fatigued mildly confused to situation, afebrile stable vital signs. He appears clinically dry. He is confused to situation and did not remember his being in the room upon his arrival to the emergency department. He further reports that he did not think he had blood drawn yesterday which did occur by his home nursing agency and did show worsening renal function to a creatinine of 3.2. He denies any particular complaints at this time though though he is unreliable historian at the moment. Poor attention. He has a minor superficial linear abrasion to the left lateral eyelid. No overt hematoma. Minor punctate abrasion of the left knee without dehiscence of surgical wound. Patient moves all extremities equally with generalized weakness. EKG without overt acute ischemia. Chest x-ray negative for acute cardiopulmonary process. WBC 11.8K, nonspecific with neutrophil predominance though no significant left shift. H/H similar to prior. Platelets within normal limits. Chemistry was metabolic acidosis with bicarbonate of 18 but normal anion gap. Creatinine has up trended to 4.2 with BUN of 48. High-sensitivity troponin 23.2, nonspecific. CRP is undetectable and had been as high as 24 on last admission. ESR was elevated at 66 and had been as high as 100 on last admission. Procalcitonin mildly above normal at 0.54. TSH within normal limits. Lipase within normal limits. UA without convincing evidence of infection. COVID-19 PCR was negative. Influenza and RSV PCR were also negative. INR is mildly elevated at 1.4, nonspecific. LFTs are unremarkable. Electrolytes without significant abnormality. CT of the head and CT of the abdomen pelvis were performed and were negative for acute abnormalities. Given the patient's acute renal failure with metabolic encephalopathy we will proceed with admission. The patient's agrees with this plan. Of note, the patient was due for his second dose of IV cefepime this afternoon however given his acute renal failure that have already received his every 24 hour dosing this morning. Case was discussed with SHREYA Mo hospitalist, who will evaluate the patient for admission. Triage Nursing notes reviewed and agree them. Prior medical records reviewed Vital Signs: reviewed and remarkable for no significant abnormalities Differential diagnosis: Infection, dehydration, metabolic abnormality, hypo/hyperglycemia, electrolyte disturbance, anemia, hypoxia, cardiac sources, intracerebral event, toxicologic, neurologic, as well as other pathologies. ER treatment provided: See below. Diagnostics interpreted by me: ECG: Normal sinus rhythm, 71 bpm, no ectopy, no overt ST elevation or depression, QTC 441, QRS 80 Cardiac Monitoring: An order for continuous cardiac monitoring was placed and demonstrated Normal sinus rhythm, 71 bpm, no ectopy. Laboratory studies: See below Imaging studies: See below Consultation(s): Case was discussed with SHREYA Mo hospitalist, who will evaluate the patient for admission. HPI: The patient is a pleasant 56-year-old gentleman with a past medical history of uncontrolled diabetes, recent complicated medical course where he was hospitalized for infection of his left prosthetic knee where he had surgical I&D and explant of his hardware with implant of antibiotic spacer subsequently discharged to acute rehab at [facility] where he was discharged approximately a week ago to home with ongoing IV cefepime 2 g 3 times daily via his PICC line who presents emergency department today via EMS for evaluation of progressive confusion from baseline and dizziness with a syncopal episode that occurred today where he did hit his head. His denies any recent fevers, nausea, vomiting or diarrhea. She does report that she feels he has been urinating less and need to eat and drink less as well. ROS: See above HPI for pertinent positives & negatives. A total of 10 systems reviewed and were otherwise negative. VITALS:See Below PHYSICAL EXAMINATION: GENERAL: Awake, alert, acute on chronically ill-appearing, in no distress HENT: Normocephalic, Minor superficial linear abrasion to the left lateral eyelid. No overt hematoma.. Oropharynx with dry mucous membranes and otherwise unremarkable. EYES: Normal conjunctiva. Sclera non-icteric. NECK: Supple. No nuchal rigidity. FROM. No JVD. RESPIRATORY: Clear to auscultation. CARDIAC: Regular rate, normal rhythm. Extremities warm and well perfused. Pulses equal. ABDOMEN: Soft, non-distended. No tenderness to palpation. No rebound or guarding. No masses. RECTAL: Deferred. MUSCULOSKELETAL: Chest examination reveals no tenderness. The back is symmetrical on inspection without obvious abnormality. There is no CVA tenderness to palpation. Minor punctate abrasion of the left knee without dehiscence of surgical wound. Knee immobilizer present. No overt warmth or discoloration to the knee. LOWER EXTREMITIES: Calves are equal size bilaterally and non-tender. No edema. No discoloration. NEURO: Confused to situation. Poor attention. Moves all extremities equally with generalized weakness. SKIN: No rash or jaundice noted. ED COURSE: Critical Care: I have personally spent greater than 35 minutes of critical care time in the direct management of this patient. This includes bedside care, interpretation o f diagnostic studies, and testing, discussion with consultants, patient, and family members, and other required patient management activities. This 35 minutes is in excess of all separately billable procedures. Carter Juárez MD Past Med/Surg History Medical History Anxiety and depression Attention deficit disorder (ADD) Bulging lumbar disc Cardiac murmur FOLLOWS WITH DR. GREENWOOD CHF (congestive heart failure) Diabetic peripheral neuropathy associated with type 2 diabetes mellitus DM type 2 (diabetes mellitus, type 2) GERD (gastroesophageal reflux disease) History of amputation of right great toe History of anemia History of kidney stones HTN (hypertension) Hx MRSA infection 2018> resolved Hx of diabetic foot ulcer Hyperlipidemia Obesity Osteoarthritis Sleep apnea CPAP Surgical History History of colonoscopy History of open reduction and internal fixation (ORIF) procedure RT HAND History of tooth extraction History of total left knee replacement History of wisdom tooth extraction S/P revision of total knee LEFT Family History Father Family history of diabetes mellitus Other No family history of adverse response to anesthesia No pertinent family history Social History Smoking Status: Unknown if ever smoked Second Hand Exposure: No; Hx Alcohol Use: No Hx Substance Use: No Preferred Language: Macanese Communication Ability: Effective Visual Impairment: Limited 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 Beliefs That Will Affect Care: None marital status: Current Living Situation: Spouse current occupational status: employed current occupation: [id number] , 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 How many Children do You have: 2 Feels Safe at Home: Yes during the past year weight has: remained stable Assistive Devices: None Allergies Allergies Allergy/AdvReac Type Severity Reaction Status Date / Time levofloxacin AdvReac Intermediate GI SYMPTOMS Verified 01/30/22 17:09 pneumococcal vaccine AdvReac Intermediate GI Verified 01/30/22 17:09 SYMPTOMS-OK IF MULTIPLE VACCINES GIVEN SEPARATELY tetanus toxoid, adsorbed AdvReac Intermediate TETANUS/DIPTHERIA/PERTUSSIS-GI Verified 01/30/22 17:09 UPSTE/BODY ACHES Home Meds Home Medications Medication Instructions Recorded Confirmed Unknown Antibiotic Iv 1 dose IV TID 01/30/22 acetaminophen 500 mg tablet 500 - 1,000 mg PO Q8 PRN Pain 01/30/22 01/30/22 (Tylenol Extra Strength) cyanocobalamin (vitamin B-12) 1,000 mcg PO DAILY 01/30/22 01/30/22 1,000 mcg tablet (Vitamin B-12) cyclobenzaprine 10 mg tablet 10 mg PO TID PRN Spasms 01/30/22 01/30/22 gabapentin 600 mg tablet 600 mg PO AMHS 01/30/22 01/30/22 insulin aspart U-100 100 unit/mL 6 unit subcut TIDWMEAL 01/30/22 01/30/22 (3 mL) subcutaneous pen (Novolog Flexpen U-100 Insulin aspart) insulin glargine 100 unit/mL 28 unit subcut BID 01/30/22 01/30/22 subcutaneous solution (Lantus U-100 Insulin) lisinopril 2.5 mg tablet 2.5 mg PO QAM 01/30/22 01/30/22 melatonin 3 mg tablet 6 mg PO HS PRN Sleep 01/30/22 01/30/22 metformin 1,000 mg tablet 1,000 mg PO BID 01/30/22 01/30/22 metoprolol tartrate 100 mg tablet 50 mg PO AMHS 01/30/22 01/30/22 naloxone 4 mg/actuation nasal 4 mg intranasal DAILY PRN opiod od 01/30/22 01/30/22 spray (Narcan) oxycodone 5 mg tablet 5 mg PO Q6 PRN .moderate pain 01/30/22 01/30/22 pantoprazole 40 mg tablet,delayed 40 mg PO QAM 01/30/22 01/30/22 release Results & Data (ED) Vital Signs Vital Signs - 24 hr 01/30/22 13:01 01/30/22 12:57 01/30/22 12:57 Temperature 36.8 C Temperature Source Oral Pulse Rate 80 Pulse Rate [Apical] Pulse Rhythm Regular Pulse Rhythm [Apical] Pulse Strength Normal Respiratory Rate 18 16 Respiratory Effort / Characteristics Non-Labored Spontaneous Non-Labored Respiratory Depth Normal Normal Respiratory Pattern Regular Regular Blood Pressure 101/73 Blood Pressure [Left Arm] Blood Pressure Mean 82 Blood Pressure Mean [Left Arm] Blood Pressure Position [Left Arm] Pulse Oximetry 100 92 Oxygen Delivery Method Room Air Room Air Room Air Oxygen Flow Rate 0 Sepsis Recent Fever Within 48 Hours No Sepsis New/Unexplained Change in Mental Status Yes Sepsis Action Taken by Nursing No Action Required 01/30/22 14:00 01/30/22 14:57 01/30/22 16:45 Temperature Temperature Source Pulse Rate 94 H Pulse Rate [Apical] 75 78 Pulse Rhythm Regular Pulse Rhythm [Apical] Regular Regular Pulse Strength Respiratory Rate 18 16 18 Respiratory Effort / Characteristics Non-Labored Non-Labored Respiratory Depth Normal Normal Respiratory Pattern Regular Regular Blood Pressure Blood Pressure [Left Arm] 125/60 106/65 Blood Pressure Mean Blood Pressure Mean [Left Arm] 81 78 Blood Pressure Position [Left Arm] Lying Lying Pulse Oximetry 98 96 99 Oxygen Delivery Method Room Air Room Air Room Air Oxygen Flow Rate Sepsis Recent Fever Within 48 Hours Sepsis New/Unexplained Change in Mental Status Sepsis Action Taken by Nursing Laboratory Data Attestation: I reviewed the patient's lab results. Result diagrams: 01/30/22 13:31 01/30/22 13:31 Lab Results 01/30/22 01/30/22 01/30/22 Range/Units 13:31 13:31 13:31 WBC 11.88 H (4.8-10.8) K/ul RBC 3.35 L (4.63-6.08) M/uL Hgb 9.7 L (14.0-18.0) g/dl Hct 29.5 L (40.1-51.0) % MCV 88.1 (80.0-100.0) fL MCH 29.0 (25.0-34.0) pg MCHC 32.9 (32.0-36.0) g/dL RDW Std Deviation 47.0 H (36.4-46.3) fL RDW Coeff of Monica 14.6 H (11.5-14.5) % Plt Count 250 (130-400) K/uL MPV 11.3 (9.4-12.4) fL Immature Gran % (Auto) 0.3 % Neut % (Auto) 81.4 % Lymph % (Auto) 6.7 % [place] % (Auto) 7.7 % Eos % (Auto) 3.2 % Baso % (Auto) 0.7 % Neut # (Auto) 9.67 H (1.4-6.5) K/uL Lymph # (Auto) 0.80 L (1.2-3.4) K/uL [place] # (Auto) 0.92 H (0.24-0.82) K/uL Eos # (Auto) 0.38 (0-0.50) K/uL Baso # (Auto) 0.08 (0-0.2) K/uL Immature Gran # (Auto) 0.03 H (0.00-0.02) K/uL ESR (0-20) mm/hr PT (9.0-12.0) Seconds INR (0.9-1.1) Sodium 138 (136-145) mmol/L Potassium 4.6 (3.5-5.1) mmol/L Chloride 109 H (98-107) mmol/L Carbon Dioxide 18 L (21-32) mmol/L Anion Gap 11 (3-11) BUN 48 H (6-23) mg/dl Creatinine 4.23 H D (0.6-1.4) mg/dl Est Cr Clr Drug Dosing 22.6 ml/min Est GFR ( Amer) 16.7 ml/min Est GFR (Non-Af Amer) 14.4 ml/min BUN/Creatinine Ratio 11.3 (10-20) Glucose 121 H (70-99(Fasting)) mg/dl Calcium 9.2 (8.5-10.1) mg/dl Phosphorus 4.0 (2.5-4.9) mg/dl Magnesium 1.9 (1.7-2.4) mg/dl Total Bilirubin 0.4 (0.2-1.0) mg/dl AST 20 (13-39) U/L ALT 17 (7-52) U/L Alkaline Phosphatase 117 H (34-104) U/L Troponin I High Sens 23.2 H (0-20) pg/ml C-Reactive Protein (0-0.5) mg/dl Total Protein 6.7 (6.0-8.3) gm/dl Albumin 3.5 (3.4-5.0) gm/dl Globulin 3.2 (2.5-4.0) gm/dl Albumin/Globulin Ratio 1.1 (0.9-2) Lipase 14 (11-82) U/L Procalcitonin (0-0.5) ng/ml TSH 3.406 (0.300-4.500) uIu/ml Urine Color Urine Appearance (Clear) Urine pH (4.5-7.5) Ur Specific [place] (1.000-1.030) Urine Protein (Negative) Urine Glucose (UA) (Negative) Urine Ketones (Negative) Urine Blood (Negative) Urine Nitrite (Negative) Urine Bilirubin (Negative) Urine Urobilinogen (Negative) Ur Leukocyte Esterase (Negative) Urine WBC (Auto) (0-5) /hpf Urine RBC (Auto) (0-4) /hpf U Hyaline Cast (Auto) (0-5) /lpf U Epithel Cells (Auto) (0-5) /lpf Urine Bacteria (Auto) (Negative) Urine Yeast SARS-CoV-2 (PCR) (Negative) Influenza Type A (PCR) (Neg) Influenza Type B (PCR) (Neg) RSV (RT-PCR) (Neg) 01/30/22 01/30/22 01/30/22 Range/Units 13:31 13:31 13:31 WBC (4.8-10.8) K/ul RBC (4.63-6.08) M/uL Hgb (14.0-18.0) g/dl Hct (40.1-51.0) % MCV (80.0-100.0) fL MCH (25.0-34.0) pg MCHC (32.0-36.0) g/dL RDW Std Deviation (36.4-46.3) fL RDW Coeff of Monica (11.5-14.5) % Plt Count (130-400) K/uL MPV (9.4-12.4) fL Immature Gran % (Auto) % Neut % (Auto) % Lymph % (Auto) % [place] % (Auto) % Eos % (Auto) % Baso % (Auto) % Neut # (Auto) (1.4-6.5) K/uL Lymph # (Auto) (1.2-3.4) K/uL [place] # (Auto) (0.24-0.82) K/uL Eos # (Auto) (0-0.50) K/uL Baso # (Auto) (0-0.2) K/uL Immature Gran # (Auto) (0.00-0.02) K/uL ESR (0-20) mm/hr PT 14.6 H (9.0-12.0) Seconds INR 1.4 H (0.9-1.1) Sodium (136-145) mmol/L Potassium (3.5-5.1) mmol/L Chloride (98-107) mmol/L Carbon Dioxide (21-32) mmol/L Anion Gap (3-11) BUN (6-23) mg/dl Creatinine (0.6-1.4) mg/dl Est Cr Clr Drug Dosing ml/min Est GFR ( Amer) ml/min Est GFR (Non-Af Amer) ml/min BUN/Creatinine Ratio (10-20) Glucose (70-99(Fasting)) mg/dl Calcium (8.5-10.1) mg/dl Phosphorus (2.5-4.9) mg/dl Magnesium (1.7-2.4) mg/dl Total Bilirubin (0.2-1.0) mg/dl AST (13-39) U/L ALT (7-52) U/L Alkaline Phosphatase (34-104) U/L Troponin I High Sens (0-20) pg/ml C-Reactive Protein < 0.50 (0-0.5) mg/dl Total Protein (6.0-8.3) gm/dl Albumin (3.4-5.0) gm/dl Globulin (2.5-4.0) gm/dl Albumin/Globulin Ratio (0.9-2) Lipase (11-82) U/L Procalcitonin 0.54 H (0-0.5) ng/ml TSH (0.300-4.500) uIu/ml Urine Color Urine Appearance (Clear) Urine pH (4.5-7.5) Ur Specific [place] (1.000-1.030) Urine Protein (Negative) Urine Glucose (UA) (Negative) Urine Ketones (Negative) Urine Blood (Negative) Urine Nitrite (Negative) Urine Bilirubin (Negative) Urine Urobilinogen (Negative) Ur Leukocyte Esterase (Negative) Urine WBC (Auto) (0-5) /hpf Urine RBC (Auto) (0-4) /hpf U Hyaline Cast (Auto) (0-5) /lpf U Epithel Cells (Auto) (0-5) /lpf Urine Bacteria (Auto) (Negative) Urine Yeast SARS-CoV-2 (PCR) (Negative) Influenza Type A (PCR) (Neg) Influenza Type B (PCR) (Neg) RSV (RT-PCR) (Neg) 01/30/22 01/30/22 01/30/22 Range/Units 13:31 15:32 15:40 WBC (4.8-10.8) K/ul RBC (4.63-6.08) M/uL Hgb (14.0-18.0) g/dl Hct (40.1-51.0) % MCV (80.0-100.0) fL MCH (25.0-34.0) pg MCHC (32.0-36.0) g/dL RDW Std Deviation (36.4-46.3) fL RDW Coeff of Monica (11.5-14.5) % Plt Count (130-400) K/uL MPV (9.4-12.4) fL Immature Gran % (Auto) % Neut % (Auto) % Lymph % (Auto) % [place] % (Auto) % Eos % (Auto) % Baso % (Auto) % Neut # (Auto) (1.4-6.5) K/uL Lymph # (Auto) (1.2-3.4) K/uL [place] # (Auto) (0.24-0.82) K/uL Eos # (Auto) (0-0.50) K/uL Baso # (Auto) (0-0.2) K/uL Immature Gran # (Auto) (0.00-0.02) K/uL ESR 66 H (0-20) mm/hr PT (9.0-12.0) Seconds INR (0.9-1.1) Sodium (136-145) mmol/L Potassium (3.5-5.1) mmol/L Chloride (98-107) mmol/L Carbon Dioxide (21-32) mmol/L Anion Gap (3-11) BUN (6-23) mg/dl Creatinine (0.6-1.4) mg/dl Est Cr Clr Drug Dosing ml/min Est GFR ( Amer) ml/min Est GFR (Non-Af Amer) ml/min BUN/Creatinine Ratio (10-20) Glucose (70-99(Fasting)) mg/dl Calcium (8.5-10.1) mg/dl Phosphorus (2.5-4.9) mg/dl Magnesium (1.7-2.4) mg/dl Total Bilirubin (0.2-1.0) mg/dl AST (13-39) U/L ALT (7-52) U/L Alkaline Phosphatase (34-104) U/L Troponin I High Sens (0-20) pg/ml C-Reactive Protein (0-0.5) mg/dl Total Protein (6.0-8.3) gm/dl Albumin (3.4-5.0) gm/dl Globulin (2.5-4.0) gm/dl Albumin/Globulin Ratio (0.9-2) Lipase (11-82) U/L Procalcitonin (0-0.5) ng/ml TSH (0.300-4.500) uIu/ml Urine Color Yellow Urine Appearance Clear (Clear) Urine pH 5.5 (4.5-7.5) Ur Specific [place] 1.010 (1.000-1.030) Urine Protein 2+ H (Negative) Urine Glucose (UA) Negative (Negative) Urine Ketones Negative (Negative) Urine Blood 1+ H (Negative) Urine Nitrite Negative (Negative) Urine Bilirubin Negative (Negative) Urine Urobilinogen Negative (Negative) Ur Leukocyte Esterase Negative (Negative) Urine WBC (Auto) 1-5 (0-5) /hpf Urine RBC (Auto) 0-4 (0-4) /hpf U Hyaline Cast (Auto) 1-5 (0-5) /lpf U Epithel Cells (Auto) 5-10 H (0-5) /lpf Urine Bacteria (Auto) Negative (Negative) Urine Yeast Not Reportable SARS-CoV-2 (PCR) NEGATIVE (Negative) Influenza Type A (PCR) Negative (Neg) Influenza Type B (PCR) Negative (Neg) RSV (RT-PCR) Negative (Neg) Administered Medications Lactated Ringer's (Lr) 1,000 mls @ 80 mls/hr IV .[id number] ALL Stop: 03/01/22 18:25 Last Admin: 01/30/22 19:09 Dose: 80 mls/hr Documented By: [id number] Imaging Data Radiologist's Impression: Chest X-Ray 01/30/22 13:56 SINGLE VIEW CHEST CLINICAL HISTORY: Syncope. FINDINGS: An AP, portable, upright chest radiograph is compared to study dated 12/31/2021. Correlation is made with chest CT dated 01/01/2018. A right PICC line is new from previous. The tip of the catheter projects over the cavoatrial junction. The cardiomediastinal silhouette is top normal for projection. There is mild bibasilar atelectasis. The lungs and pleural spaces are otherwise clear. No pneumothorax is seen. The bony thorax is grossly intact. IMPRESSION: No acute cardiopulmonary abnormality. ACT 112: Negative or not required by law. Electronically signed by: Blaise Vinson M.D. 01/30/2022 2:17 PM Abdomen/Pelvis CT 01/30/22 15:08 CT abd pelvis wo con CLINICAL HISTORY: arf, ams TECHNIQUE: Helical axial images of the abdomen and pelvis were obtained. Automated dose lowering techniques and/or adjustment according to patient size were utilized for this exam. This exam was performed without intravenous contrast. CT DOSE: 1977.61 mGy.cm COMPARISON: Comparison is made to CT abdomen pelvis 08/04/2021 FINDINGS: Lower chest: Lung bases appear clear. Right PICC catheter is seen. Liver: Minimal nodularity of the liver surface is again seen. Gallbladder and biliary tree: No calcified gallstones. Normal caliber wall. No intra- or extrahepatic biliary ductal dilation. Pancreas: Unremarkable, no focal lesions. Spleen: Unremarkable. Adrenals: Unremarkable. Kidneys and ureters: Perinephric stranding is noted bilaterally. Bladder: Unremarkable. Reproductive organs: Unremarkable. Bowel: Unremarkable appearance of the bowel. The appendix is normal. Lymph nodes Retroperitoneal: Unremarkable. Pelvic: Unremarkable. Mesenteric: Unremarkable. Peritoneum: Normal. Vessels: Atherosclerotic calcifications are seen. Abdominal wall: Injection granulomata are seen. Nonspecific skin thickening is noted in the anterior abdomen, similar to prior exam. Bones: Degenerative changes in the visualized spine. Pars defects are seen at L5-S1 with grade 1 anterolisthesis. Prominent disc disease at L1-L2 is seen. Old fractures of the left transverse processes of L1 and L2 are seen. Old healed rib fractures are partially visualized. IMPRESSION: No acute abnormalities, in particular no evidence of acute fracture or intra- abdominal trauma. ACT 112: Negative or not required by law. Electronically signed by: Carl Deras M.D. 01/30/2022 4:[address] 01/30/22 15:08 CT head/brain wo con CLINICAL HISTORY: fall, headstrike, ams Technique: Contiguous axial CT images of the head were acquired from the base of the skull to the vertex without intravenous contrast administration. Images were viewed in brain, subdural and bone windows. Automated dose lowering techniques and/or adjustment according to patient size were utilized for this exam. Comparison: Comparison is made to CT head 12/31/2021 Findings: Areas of decreased attenuation are present in the periventricular and subcortical white matter bilaterally consistent with small vessel ischemic disease. Generalized cerebral atrophy with commensurate enlargement of the ventricles, sulci, and cisterns is also present. There is no acute intracranial hemorrhage or evidence of acute territorial infarction. No shift of the midline structures, mass effect, or extra-axial abnormalities are shown. Atheroscl erotic calcifications are present in the intracranial segments of the internal carotid arteries. Imaged portions of the paranasal sinuses and mastoid air cells are clear. The orbits appear normal. There are no acute fractures of the calvaria or scalp swelling. Impression: No acute intracranial hemorrhage, no evidence of acute territorial infarction or other acute intracranial disease process. ACT 112: Negative or not required by law. Electronically signed by: Carl Deras M.D. 01/30/2022 4:08 PM Discharge Plan Visit Data Chief Complaint: Syncope Stated Complaint: SYNCOPE, NEAR SYNCOPE, FALL ED Provider: Carter Juárez Discharge Problem: Acute metabolic encephalopathy, Acute renal failure, Syncope Patient Disposition: Admitted As Inpatient Discharge Instructions Interventions: ED Discharge Assessment Last Done: 01/30/22 17:49
[2022-01-31] MEDS: LACTATED RINGER'S 1,000 ML IV SCH ×2 (05:34→17:23)
[2022-01-31 06:29] LABS: Hematocrit (blood only) 29.3 % (40.1-51.0); Hemoglobin 9.6 g/dl (14.0-18.0); Mean Corpuscular Hemoglobin 28.7 pg (25.0-34.0); Mean Corpuscular Hgb Conc 32.8 g/dL (32.0-36.0); Mean Corpuscular Volume 87.5 fL (80.0-100.0); Mean Platelet Volume 11.2 fL (9.4-12.4); Platelet Count 252 K/uL (130-400); RDW Coefficient of Variation 14.6 % (11.5-14.5); RDW Standard Deviation 47.2 fL (36.4-46.3); Red Blood Count 3.35 M/uL (4.63-6.08); White Blood Count 9.92 K/ul (4.8-10.8)
[2022-01-31 06:46] LABS: BUN Creatinine Ratio 11.2 (10-20); Calcium 8.9 mg/dl (8.5-10.1); Est GFR (African American) 15.3 ml/min; Est GFR (Non-African American) 13.2 ml/min; Magnesium 1.8 mg/dl (1.7-2.4); Potassium 3.9 mmol/L (3.5-5.1)
[2022-01-31] MEDS: INSULIN ASPART PER UNIT SC SCH ×4 (08:33→20:50)
[2022-01-31] MEDS: LANTUS PER UNIT CHARGE SQ SCH ×2 (08:33→21:46)
[2022-01-31] MEDS: PANTOprazole 40 MG TAB PO SCH (08:36)
[2022-01-31] MEDS: HEPARIN SOD 5,000 UNIT/0.5 ML VIAL SQ SCH ×2 (08:36→20:27)
[2022-01-31] MEDS: METOPROLOL TARTRATE 50 MG TAB PO SCH ×2 (08:37→20:26)
--- NOTE | 2022-01-31 09:25 | Infectious Disease Consult ---
Date of Consultation January 31, 2022 Assessment & Plan (1) Acute renal failure: (2) Gram-negative bacteremia: (3) Infection of total left knee replacement: Plan 56 yo M with history of poorly controlled DM2, peripheral neuropathy, CHF, HTN, HLD, depression, JENNIFFER, partial amputation of R great toe, L knee streptococcal TKA s/p revision 2019 previously on oral suppressive cephalexin, recent admission for Serratia L knee PJI and bacteremia s/p total explant and spacer (01/03). OR cultures and blood cultures grew conway-sensitive Serratia, but a L knee aspirate grew Serratia intermediate to ceftriaxone, so the patient was placed on cefepime with a plan for 6 weeks duration through 02/14. He presented on 01/30 with progressive confusion, dizziness, syncopal episode, found to have worsening KUN. Cr has uptrended to 4.56 today. There is concern for KUN secondary to cefepime. Cefepime can rarely cause AIN. Problems: #KUN #Serratia L knee PJI and bacteremia s/p total explant and spacer #Levofloxacin intolerance: GI symptoms #History of L knee streptococcal TKA s/p revision 2019 previously on oral suppressive cephalexin Recommendations: -Await nephrology evaluation for etiology of KUN -In setting of concern for KUN secondary to cefepime, will instead start ertapenem 500 mg daily -Will continue to follow Consultation Information This patient recommendation is based on a telemedicine consult request which was completed asynchronously through chart review and information provided by the primary physician. The patient was not seen or examined today. The evaluation is consultative in nature and all patient care and treatment decisions can either be accepted or rejected by the patient's primary hospital-based treating physician using their own independent medical judgment for their patient. [employer] contact information: Please call [facility] . (Phone Number For Physician Use Only) Time Spent Reviewing Chart: 31+ minutes History of Present Illness Reason for Consultation: KUN on cefepime Attending Physician: Navi Garvey MD History of Present Illness 56 yo M with history of poorly controlled DM2, peripheral neuropathy, CHF, HTN, HLD, depression, JENNIFFER, partial amputation of R great toe, L knee streptococcal TKA s/p revision 2019 previously on oral suppressive cephalexin, recent admission for Serratia L knee PJI and bacteremia s/p total explant and spacer (01/03), discharged to SNF on 01/06 with plan for 6 weeks of IV cefepime through 02/14. He presented on 01/30 with progressive confusion, dizziness, with a syncopal episode in which he struck his head. His denies any recent fevers, nausea, vomiting, or diarrhea. She felt he has been urinating less and eating/drinking less. Labs drawn the day prior had shown worsening Cr to 3.2. On presentation, he was confused, afebrile, with stable vitals. Labs showed WBC 11.8, Cr 4.23, ESR 66, CRP < 0.5. COVID-19, flu, and RSV were negative. UA showed 2+ protein, 1+ blood, 5-[address] A/P without contrast were unremarkable. CT head without acute findings. He was admitted for acute renal failure with metabolic encephalopathy. Cefepime was held in the setting of KUN. Orthopedics and nephrology are consulted. ID is consulted due to concern for KUN in setting of cefepime. Cr has uptrended to 4.56 today. WBC is now 9.92. Allergies Allergy/AdvReac Type Severity Reaction Status Date / Time levofloxacin AdvReac Intermediate GI SYMPTOMS Verified 01/30/22 17:09 pneumococcal vaccine AdvReac Intermediate GI Verified 01/30/22 17:09 SYMPTOMS-OK IF MULTIPLE VACCINES GIVEN SEPARATELY tetanus toxoid, adsorbed AdvReac Intermediate TETANUS/DIPTHERIA/PERTUSSIS-GI Verified 01/30/22 17:09 UPSTE/BODY ACHES Home Medications Medication Instructions Recorded Confirmed Type Unknown Antibiotic Iv 1 dose IV TID 01/30/22 History acetaminophen 500 mg tablet 500 - 1,000 mg PO Q8 PRN Pain 01/30/22 01/30/22 History (Tylenol Extra Strength) cyanocobalamin (vitamin B-12) 1,000 mcg PO DAILY 01/30/22 01/30/22 History 1,000 mcg tablet (Vitamin B-12) cyclobenzaprine 10 mg tablet 10 mg PO TID PRN Spasms 01/30/22 01/30/22 History gabapentin 600 mg tablet 600 mg PO AMHS 01/30/22 01/30/22 History insulin aspart U-100 100 unit/mL 6 unit subcut TIDWMEAL 01/30/22 01/30/22 History (3 mL) subcutaneous pen (Novolog Flexpen U-100 Insulin aspart) insulin glargine 100 unit/mL 28 unit subcut BID 01/30/22 01/30/22 History subcutaneous solution (Lantus U-100 Insulin) lisinopril 2.5 mg tablet 2.5 mg PO QAM 01/30/22 01/30/22 History melatonin 3 mg tablet 6 mg PO HS PRN Sleep 01/30/22 01/30/22 History metformin 1,000 mg tablet 1,000 mg PO BID 01/30/22 01/30/22 History metoprolol tartrate 100 mg tablet 50 mg PO AMHS 01/30/22 01/30/22 History naloxone 4 mg/actuation nasal 4 mg intranasal DAILY PRN opiod od 01/30/22 01/30/22 History spray (Narcan) oxycodone 5 mg tablet 5 mg PO Q6 PRN .moderate pain 01/30/22 01/30/22 History pantoprazole 40 mg tablet,delayed 40 mg PO QAM 01/30/22 01/30/22 History release Patient History Medical History Anxiety and depression Attention deficit disorder (ADD) Bulging lumbar disc Cardiac murmur FOLLOWS WITH DR. GREENWOOD CHF (congestive heart failure) Diabetic peripheral neuropathy associated with type 2 diabetes mellitus DM type 2 (diabetes mellitus, type 2) GERD (gastroesophageal reflux disease) History of amputation of right great toe History of anemia History of kidney stones HTN (hypertension) Hx MRSA infection 2018> resolved Hx of diabetic foot ulcer Hyperlipidemia Obesity Osteoarthritis Sleep apnea CPAP Surgical History History of colonoscopy History of open reduction and internal fixation (ORIF) procedure RT HAND History of tooth extraction History of total left knee replacement History of wisdom tooth extraction S/P revision of total knee LEFT Family History Father Family history of diabetes mellitus Other No family history of adverse response to anesthesia No pertinent family history Social History Smoking Status: Unknown if ever smoked Second Hand Exposure: No; Hx Alcohol Use: No Hx Substance Use: No Preferred Language: Slovak Communication Ability: Effective Visual Impairment: Limited Clothes Separator Required: No Beliefs That Will Affect Care: None marital status: Current Living Situation: Spouse current occupational status: employed current occupation: [employer] , 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 How many Children do You have: 2 Feels Safe at Home: Yes during the past year weight has: remained stable Assistive Devices: None Review of System Pt not seen Physical Exam Physical Exam: Pt not seen Results & Data (MN) Vital Signs (Past 12 Hours) Vital Signs Temp Pulse Pulse Resp BP Pulse Ox O2 Del Method 01/31/22 08:10 37.4 C 84 21 112/70 98 Room Air 01/31/22 07:30 76 01/31/22 03:35 36.5 C 76 20 120/68 97 Room Air 01/30/22 22:18 75 01/30/22 23:02 36.6 C 74 18 104/61 96 Room Air Laboratory Results Short CBC 01/30/22 01/31/22 Range/Units 13:31 05:38 WBC 11.88 H 9.92 (4.8-10.8) K/ul Hgb 9.7 L 9.6 L (14.0-18.0) g/dl Hct 29.5 L 29.3 L (40.1-51.0) % Plt Count 250 252 (130-400) K/uL BMP 01/30/22 01/31/22 13:31 05:38 Sodium 138 140 Potassium 4.6 3.9 Chloride 109 H 110 H Carbon Dioxide 18 L 22 BUN 48 H 51 H Creatinine 4.23 H D 4.56 H* D Glucose 121 H 61 L Calcium 9.2 8.9 Liver Function 01/30/22 Range/Units 13:31 Total Bilirubin 0.4 (0.2-1.0) mg/dl AST 20 (13-39) U/L ALT 17 (7-52) U/L Alkaline Phosphatase 117 H (34-104) U/L Albumin 3.5 (3.4-5.0) gm/dl Urine 01/30/22 Range/Units 15:32 Urine Color Yellow Urine Appearance Clear (Clear) Urine pH 5.5 (4.5-7.5) Ur Specific [place] 1.010 (1.000-1.030) Urine Protein 2+ H (Negative) Urine Glucose (UA) Negative (Negative) Diagnostic Findings RADIOLOGY Chest X-Ray 01/30/22 13:56 FINDINGS: An AP, portable, upright chest radiograph is compared to study dated 12/31/2021. Correlation is made with chest CT dated 01/01/2018. A right PICC line is new from previous. The tip of the catheter projects over the cavoatrial junction. The cardiomediastinal silhouette is top normal for projection. There is mild bibasilar atelectasis. The lungs and pleural spaces are otherwise clear. No pneumothorax is seen. The bony thorax is grossly intact. IMPRESSION: No acute cardiopulmonary abnormality. Abdomen/Pelvis CT 01/30/22 15:08 FINDINGS: Lower chest: Lung bases appear clear. Right PICC catheter is seen. Liver: Minimal nodularity of the liver surface is again seen. Gallbladder and biliary tree: No calcified gallstones. Normal caliber wall. No intra- or extrahepatic biliary ductal dilation. Pancreas: Unremarkable, no focal lesions. Spleen: Unremarkable. Adrenals: Unremarkable. Kidneys and ureters: Perinephric stranding is noted bilaterally. Bladder: Unremarkable. Reproductive organs: Unremarkable. Bowel: Unremarkable appearance of the bowel. The appendix is normal. Lymph nodes Retroperitoneal: Unremarkable. Pelvic: Unremarkable. Mesenteric: Unremarkable. Peritoneum: Normal. Vessels: Atherosclerotic calcifications are seen. Abdominal wall: Injection granulomata are seen. Nonspecific skin thickening is noted in the anterior abdomen, similar to prior exam. Bones: Degenerative changes in the visualized spine. Pars defects are seen at L5-S1 with grade 1 anterolisthesis. Prominent disc disease at L1-L2 is seen. Old fractures of the left transverse processes of L1 and L2 are seen. Old healed rib fractures are partially visualized. IMPRESSION: No acute abnormalities, in particular no evidence of acute fracture or intra- abdominal trauma. Head CT 01/30/22 15:08 Findings: Areas of decreased attenuation are present in the periventricular and subcortical white matter bilaterally consistent with small vessel ischemic disease. Generalized cerebral atrophy with commensurate enlargement of the ventricles, sulci, and cisterns is also present. There is no acute intracranial hemorrhage or evidence of acute territorial infarction. No shift of the midline structures, mass effect, or extra-axial abnormalities are shown. Atherosclerotic calcifications are present in the intracranial segments of the internal carotid arteries. Imaged portions of the paranasal sinuses and mastoid air cells are clear. The orbits appear normal. There are no acute fractures of the calvaria or scalp swelling. Impression: No acute intracranial hemorrhage, no evidence of acute territorial infarction or other acute intracranial disease process. MICRO: 01/30 UCx: pending 01/30 BCx x2: pending 01/03 OR L knee synovial fluid: Serratia marcescens S marcesc RX M.I.C. --- --------- Cefepime S <=2 Ceftriaxone S <=1 Ciprofloxacin S <=0.25 Ertapenem S <=0.5 Gentamicin S <=4 Levofloxacin S <=0.5 Meropenem S <=1 Tobramycin S <=4 Trimeth/Sulfa S <=2/38 Pip/Tazo S <=16 01/02 BCx x4: NG 12/31 L knee joint fluid: Serratia marcescens S marcesc RX M.I.C. --- --------- Cefepime S <=2 Ceftriaxone I 2 Ciprofloxacin S <=0.25 Ertapenem S <=0.5 Gentamicin S <=4 Levofloxacin S <=0.5 Meropenem S <=1 Tobramycin S <=4 Trimeth/Sulfa S <=2/38 Pip/Tazo S <=16 12/31 BCx x2: Serratia marcescens in 2/4 vials S marcesc RX M.I.C. --- --------- Cefepime S <=2 Ceftriaxone S <=1 Ciprofloxacin S <=0.25 Ertapenem S <=0.5 Gentamicin S <=4 Levofloxacin S <=0.5 Meropenem S <=1 Tobramycin S <=4 Trimeth/Sulfa S <=2/38 Pip/Tazo S <=16 10/17 L foot deep wound culture: Serratia marcescens Medications Administered Current Inpatient Medications Acetaminophen (Acetaminophen 325 Mg Tab) 650 mg PO Q4H PRN PRN Reason: pain/fever Stop: 03/01/22 18:25 Last Admin: 01/30/22 20:24 Dose: 650 mg Dextrose (Dextrose 50% 50 Ml Syringe) 25 - 50 ml IV UD PRN; Protocol PRN Reason: Hypoglycemia Protocol Stop: 03/01/22 18:25 Glucagon (Glucagon For Inj 1 Mg Vial) 1 mg SQ UD PRN; Protocol PRN Reason: Hypoglycemia Protocol Stop: 03/01/22 18:25 Glucose (Glucose 40% Gel 15 Gm Tube) 15 - 30 gm PO UD PRN; Protocol PRN Reason: Hypoglycemia Protocol Stop: 03/01/22 18:25 Glucose (Glucose 10 Tab/Tube) 4 - 8 tab PO UD PRN; Protocol PRN Reason: Hypoglycemia Treatment Stop: 03/01/22 18:25 Heparin Sodium (Beef Lung) (Heparin 10 Unit/Ml 5 Ml Flush) 5 ml FLUSH PRN PRN PRN Reason: Flush Stop: 03/02/22 00:35 Heparin Sodium (Porcine) (Heparin Sod 5,000 Unit/0.5 Ml Vial) 5,000 units SQ Q12 ALL Stop: 03/01/22 20:59 Last Admin: 01/31/22 08:36 Dose: 5,000 units Lactated Ringer's (Lr) 1,000 mls @ 80 mls/hr IV .[id number] ALL Stop: 03/01/22 18:25 Last Admin: 01/31/22 05:34 Dose: 80 mls/hr Insulin Aspart (Insulin Aspart Per Unit) 0 units SC ACHS ALL Stop: 03/01/22 20:59 Last Admin: 01/31/22 08:33 Dose: Not Given Insulin Glargine (Lantus Per Unit Charge) 22 units SQ BID ALL Stop: 03/01/22 20:59 Last Admin: 01/31/22 08:33 Dose: 18 units Melatonin (Melatonin 3 Mg Tab) 6 mg PO HS PRN PRN Reason: Sleep Stop: 03/01/22 18:25 Last Admin: 01/30/22 20:23 Dose: 6 mg Metoprolol Tartrate (Metoprolol Tartrate 50 Mg Tab) 50 mg PO BID ALL Stop: 03/01/22 20:59 Last Admin: 01/31/22 08:37 Dose: 50 mg Miscellaneous (Carbohydrates For Hypoglycemia ) 15 - 30 gm PO UD PRN PRN Reason: Hypoglycemia Protocol Stop: 03/01/22 18:25 Last Admin: 01/31/22 07:48 Dose: 15 gm Ondansetron HCl (Ondansetron Inj 2 Mg/Ml 2 Ml Vial) 4 mg IV Q4H PRN PRN Reason: Nausea Stop: 03/01/22 18:25 Oxycodone HCl (Oxycodone Hcl Ir 5 Mg Tab (Immediate Release)) 5 mg PO Q6 PRN PRN Reason: Severe Pain Stop: 02/13/22 18:25 Pantoprazole Sodium (Pantoprazole 40 Mg Tab) 40 mg PO [facility] Stop: 03/02/22 08:59 Last Admin: 01/31/22 08:36 Dose: 40 mg
[2022-01-31] MEDS: ERTAPENEM SODIUM 500 MG in SYRINGE 0 ML IV SCH (11:34)
--- NOTE | 2022-01-31 12:47 | Nephrology Consultation ---
Date of Consultation January 31, 2022 Assessment & Plan (1) Acute metabolic encephalopathy: Possible cefepime related. In setting of KUN. Avoid cyclobenzaprine. Medications currently appropriate for kidney dysfunction. Improving. (2) Acute renal failure: Non-oliguric. Urinary retention noted. Beyer placed for monitoring. Document strict I/O's. Volume depleted. Furosemide held. Continue gentle balanced IVF as Rx. Hold lisinopril and metformin. Medications are currently dosed for kidney dysfunction. DDx prerenal, ATN, AIN, with post obstructive component. Microscopy acellular. Repeat metabolic profile this afternoon. 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 (3) Infection of total left knee replacement: Cefepime held. ID consult pending. History of Present Illness Reason for Consultation: KUN Requesting Physician: Navi Garvey MD Attending Physician: Navi Garvey MD History of Present Illness Mr. Casey Berger is a 56 year-old male with DM and OA/DJD. He was recently admitted to [facility] with Serratia bacteremia and prosthetic joint infection. TKA originally performed by Dr. Yu in 2000. STep PJI diagnosed in 2018. Maintained on chronic suppressive antibiotic therapy with amoxicillin converted to cephalexin. In December, Casey started on therapy with IV cefepime, s/p explant and spacer on 01/03, and discharged to [facility]. He returned home from rehab on Saturday. Casey presented to the ER at [facility] yesterday s/p fall at home with mental status changes. He was admitted with ARF and syncope. CT on admission notable for ~250 ml in the bladder. Casey required straight cath in the ER overnight for 400 ml and a second CIC this AM for 400 ml. On bladder scan during my assessment this morning, he had >250 ml in his bladder despite good urine output with condom cath. He remained slightly confused and denied any urge to void his bladder. Serum creatinine 1.2 mg/dL on January 06. Creatinine 1.5 on January 22. Creatinine 4.23 yesterday and 4.56 mg/dL this AM. Non-oliguric. CT otherwise demonstrates normal appearing kidneys. Casey has never been previously evaluated by a heating and cooling technician. Urine microscopy acellular. Home medications include furosemide, lisinopril, and metformin. Fargixga on medication list but patient reportedly not taking. Cyclobenzaprine also on home medication list but Casey denies taking. Electrolytes are acceptable. IVF infusing at 80 ml/hr. Allergies Allergy/AdvReac Type Severity Reaction Status Date / Time levofloxacin AdvReac Intermediate GI SYMPTOMS Verified 01/30/22 17:09 pneumococcal vaccine AdvReac Intermediate GI Verified 01/30/22 17:09 SYMPTOMS-OK IF MULTIPLE VACCINES GIVEN SEPARATELY tetanus toxoid, adsorbed AdvReac Intermediate TETANUS/DIPTHERIA/PERTUSSIS-GI Verified 01/30/22 17:09 UPSTE/BODY ACHES Home Medications Medication Instructions Recorded Confirmed Type Unknown Antibiotic Iv 1 dose IV TID 01/30/22 History acetaminophen 500 mg tablet 500 - 1,000 mg PO Q8 PRN Pain 01/30/22 01/30/22 History (Tylenol Extra Strength) cyanocobalamin (vitamin B-12) 1,000 mcg PO DAILY 01/30/22 01/30/22 History 1,000 mcg tablet (Vitamin B-12) cyclobenzaprine 10 mg tablet 10 mg PO TID PRN Spasms 01/30/22 01/30/22 History gabapentin 600 mg tablet 600 mg PO AMHS 01/30/22 01/30/22 History insulin aspart U-100 100 unit/mL 6 unit subcut TIDWMEAL 01/30/22 01/30/22 History (3 mL) subcutaneous pen (Novolog Flexpen U-100 Insulin aspart) insulin glargine 100 unit/mL 28 unit subcut BID 01/30/22 01/30/22 History subcutaneous solution (Lantus U-100 Insulin) lisinopril 2.5 mg tablet 2.5 mg PO QAM 01/30/22 01/30/22 History melatonin 3 mg tablet 6 mg PO HS PRN Sleep 01/30/22 01/30/22 History metformin 1,000 mg tablet 1,000 mg PO BID 01/30/22 01/30/22 History metoprolol tartrate 100 mg tablet 50 mg PO AMHS 01/30/22 01/30/22 History naloxone 4 mg/actuation nasal 4 mg intranasal DAILY PRN opiod od 01/30/22 01/30/22 History spray (Narcan) oxycodone 5 mg tablet 5 mg PO Q6 PRN .moderate pain 01/30/22 01/30/22 History pantoprazole 40 mg tablet,delayed 40 mg PO QAM 01/30/22 01/30/22 History release Patient History Medical History Anxiety and depression Attention deficit disorder (ADD) Bulging lumbar disc Cardiac murmur FOLLOWS WITH DR. GREENWOOD CHF (congestive heart failure) Diabetic peripheral neuropathy associated with type 2 diabetes mellitus DM type 2 (diabetes mellitus, type 2) GERD (gastroesophageal reflux disease) History of amputation of right great toe History of anemia History of kidney stones HTN (hypertension) Hx MRSA infection 2018> resolved Hx of diabetic foot ulcer Hyperlipidemia Obesity Osteoarthritis Sleep apnea CPAP Surgical History History of colonoscopy History of open reduction and internal fixation (ORIF) procedure RT HAND History of tooth extraction History of total left knee replacement History of wisdom tooth extraction S/P revision of total knee LEFT Family History Father Family history of diabetes mellitus Other No family history of adverse response to anesthesia No pertinent family history Social History Smoking Status: Unknown if ever smoked Second Hand Exposure: No; Hx Alcohol Use: No Hx Substance Use: No Preferred Language: Chinese Communication Ability: Effective Visual Impairment: Limited 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 Food Vending Service Required: No Beliefs That Will Affect Care: None marital status: Current Living Situation: Spouse current occupational status: employed 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 , 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 How many Children do You have: 2 Feels Safe at Home: Yes during the past year weight has: remained stable Assistive Devices: None Review of Systems Review of Systems: All systems reviewed & are unremarkable except as noted in HPI & below Physical Exam Constitutional: well developed; no acute distress Eyes: no scleral abnormality and no corneal abnormality ENMT: Mouth: no oral mucosal abnormality and oral mucous membranes not dry Neck: normal visual inspection and trachea midline Respiratory: normal respiratory effort Auscultation: lungs clear to auscul tation bilaterally Cardiovascular: Rate/Rhythm: regular rate Heart Sounds: normal S1 and normal S2 Extremities: no edema Musculoskeletal: Extremities: no cyanosis and no clubbing Skin: normal turgor; no lesions Neurologic: Motor/Sensory: no tremor and no asterixis Psychiatric: Orientation: alert Speech: normal rate/rhythm/volume of speech Affect: euthymic affect Results & Data ([facility]) Vital Signs (Past 12 Hours) Vital Signs Temp Pulse Pulse Resp BP Pulse Ox O2 Del Method 01/31/22 11:21 36.4 C L 85 19 121/62 100 Room Air 01/31/22 09:40 Room Air 01/31/22 08:10 37.4 C 84 21 112/70 98 Room Air 01/31/22 07:30 76 01/31/22 03:35 36.5 C 76 20 120/68 97 Room Air Laboratory Results Laboratory Results - last 24 hr 01/30/22 01/30/22 01/30/22 13:31 13:31 13:31 WBC 11.88 H RBC 3.35 L Hgb 9.7 L Hct 29.5 L MCV 88.1 MCH 29.0 MCHC 32.9 RDW Std Deviation 47.0 H RDW Coeff of Monica 14.6 H Plt Count 250 MPV 11.3 Immature Gran % (Auto) 0.3 Neut % (Auto) 81.4 Lymph % (Auto) 6.7 Yates % (Auto) 7.7 Eos % (Auto) 3.2 Baso % (Auto) 0.7 Neut # (Auto) 9.67 H Lymph # (Auto) 0.80 L Yates # (Auto) 0.92 H Eos # (Auto) 0.38 Baso # (Auto) 0.08 Immature Gran # (Auto) 0.03 H ESR PT INR Sodium 138 Potassium 4.6 Chloride 109 H Carbon Dioxide 18 L Anion Gap 11 BUN 48 H Creatinine 4.23 H D Est Cr Clr Drug Dosing 22.6 Est GFR ( Amer) 16.7 Est GFR (Non-Af Amer) 14.4 BUN/Creatinine Ratio 11.3 Glucose 121 H POC Glucose Lactate Calcium 9.2 Phosphorus 4.0 Magnesium 1.9 Total Bilirubin 0.4 AST 20 ALT 17 Alkaline Phosphatase 117 H Ammonia Troponin I High Sens 23.2 H C-Reactive Protein Total Protein 6.7 Albumin 3.5 Globulin 3.2 Albumin/Globulin Ratio 1.1 Lipase 14 Procalcitonin TSH 3.406 Urine Color Urine Appearance Urine pH Ur Specific [place] Urine Protein Urine Glucose (UA) Urine Ketones Urine Blood Urine Nitrite Urine Bilirubin Urine Urobilinogen Ur Leukocyte Esterase Urine WBC (Auto) Urine RBC (Auto) U Hyaline Cast (Auto) U Epithel Cells (Auto) Urine Bacteria (Auto) Urine Yeast SARS-CoV-2 (PCR) Influenza Type A (PCR) Influenza Type B (PCR) RSV (RT-PCR) 01/30/22 01/30/22 01/30/22 13:31 13:31 13:31 WBC RBC Hgb Hct MCV MCH MCHC RDW Std Deviation RDW Coeff of Monica Plt Count MPV Immature Gran % (Auto) Neut % (Auto) Lymph % (Auto) Yates % (Auto) Eos % (Auto) Baso % (Auto) Neut # (Auto) Lymph # (Auto) Yates # (Auto) Eos # (Auto) Baso # (Auto) Immature Gran # (Auto) ESR PT 14.6 H INR 1.4 H Sodium Potassium Chloride Carbon Dioxide Anion Gap BUN Creatinine Est Cr Clr Drug Dosing Est GFR ( Amer) Est GFR (Non-Af Amer) BUN/Creatinine Ratio Glucose POC Glucose Lactate Calcium Phosphorus Magnesium Total Bilirubin AST ALT Alkaline Phosphatase Ammonia Troponin I High Sens C-Reactive Protein < 0.50 Total Protein Albumin Globulin Albumin/Globulin Ratio Lipase Procalcitonin 0.54 H TSH Urine Color Urine Appearance Urine pH Ur Specific [place] Urine Protein Urine Glucose (UA) Urine Ketones Urine Blood Urine Nitrite Urine Bilirubin Urine Urobilinogen Ur Leukocyte Esterase Urine WBC (Auto) Urine RBC (Auto) U Hyaline Cast (Auto) U Epithel Cells (Auto) Urine Bacteria (Auto) Urine Yeast SARS-CoV-2 (PCR) Influenza Type A (PCR) Influenza Type B (PCR) RSV (RT-PCR) 01/30/22 01/30/22 01/30/22 13:31 15:32 15:40 WBC RBC Hgb Hct MCV MCH MCHC RDW Std Deviation RDW Coeff of Monica Plt Count MPV Immature Gran % (Auto) Neut % (Auto) Lymph % (Auto) Yates % (Auto) Eos % (Auto) Baso % (Auto) Neut # (Auto) Lymph # (Auto) Yates # (Auto) Eos # (Auto) Baso # (Auto) Immature Gran # (Auto) ESR 66 H PT INR Sodium Potassium Chloride Carbon Dioxide Anion Gap BUN Creatinine Est Cr Clr Drug Dosing Est GFR ( Amer) Est GFR (Non-Af Amer) BUN/Creatinine Ratio Glucose POC Glucose Lactate Calcium Phosphorus Magnesium Total Bilirubin AST ALT Alkaline Phosphatase Ammonia Troponin I High Sens C-Reactive Protein Total Protein Albumin Globulin Albumin/Globulin Ratio Lipase Procalcitonin TSH Urine Color Yellow Urine Appearance Clear Urine pH 5.5 Ur Specific [place] 1.010 Urine Protein 2+ H Urine Glucose (UA) Negative Urine Ketones Negative Urine Blood 1+ H Urine Nitrite Negative Urine Bilirubin Negative Urine Urobilinogen Negative Ur Leukocyte Esterase Negative Urine WBC (Auto) 1-5 Urine RBC (Auto) 0-4 U Hyaline Cast (Auto) 1-5 U Epithel Cells (Auto) 5-10 H Urine Bacteria (Auto) Negative Urine Yeast Not Reportable SARS-CoV-2 (PCR) NEGATIVE Influenza Type A (PCR) Negative Influenza Type B (PCR) Negative RSV (RT-PCR) Negative 01/30/22 01/30/22 01/30/22 19:35 19:35 20:14 WBC RBC Hgb Hct MCV MCH MCHC RDW Std Deviation RDW Coeff of Monica Plt Count MPV Immature Gran % (Auto) Neut % (Auto) Lymph % (Auto) Yates % (Auto) Eos % (Auto) Baso % (Auto) Neut # (Auto) Lymph # (Auto) Yates # (Auto) Eos # (Auto) Baso # (Auto) Immature Gran # (Auto) ESR PT INR Sodium Potassium Chloride Carbon Dioxide Anion Gap BUN Creatinine Est Cr Clr Drug Dosing Est GFR ( Amer) Est GFR (Non-Af Amer) BUN/Creatinine Ratio Glucose POC Glucose 85 Lactate 0.5 Calcium Phosphorus Magnesium Total Bilirubin AST ALT Alkaline Phosphatase Ammonia 14.0 L Troponin I High Sens C-Reactive Protein Total Protein Albumin Globulin Albumin/Globulin Ratio Lipase Procalcitonin TSH Urine Color Urine Appearance Urine pH Ur Specific [place] Urine Protein Urine Glucose (UA) Urine Ketones Urine Blood Urine Nitrite Urine Bilirubin Urine Urobilinogen Ur Leukocyte Esterase Urine WBC (Auto) Urine RBC (Auto) U Hyaline Cast (Auto) U Epithel Cells (Auto) Urine Bacteria (Auto) Urine Yeast SARS-CoV-2 (PCR) Influenza Type A (PCR) Influenza Type B (PCR) RSV (RT-PCR) 01/31/22 01/31/22 01/31/22 05:38 05:38 07:48 WBC 9.92 RBC 3.35 L Hgb 9.6 L Hct 29.3 L MCV 87.5 MCH 28.7 MCHC 32.8 RDW Std Deviation 47.2 H RDW Coeff of Monica 14.6 H Plt Count 252 MPV 11.2 Immature Gran % (Auto) Neut % (Auto) Lymph % (Auto) Yates % (Auto) Eos % (Auto) Baso % (Auto) Neut # (Auto) Lymph # (Auto) Yates # (Auto) Eos # (Auto) Baso # (Auto) Immature Gran # (Auto) ESR PT INR Sodium 140 Potassium 3.9 Chloride 110 H Carbon Dioxide 22 Anion Gap 8 BUN 51 H Creatinine 4.56 H* D Est Cr Clr Drug Dosing 21.0 Est GFR ( Amer) 15.3 Est GFR (Non-Af Amer) 13.2 BUN/Creatinine Ratio 11.2 Glucose 61 L POC Glucose 61 L* Lactate Calcium 8.9 Phosphorus Magnesium 1.8 Total Bilirubin AST ALT Alkaline Phosphatase Ammonia Troponin I High Sens C-Reactive Protein Total Protein Albumin Globulin Albumin/Globulin Ratio Lipase Procalcitonin TSH Urine Color Urine Appearance Urine pH Ur Specific [place] Urine Protein Urine Glucose (UA) Urine Ketones Urine Blood Urine Nitrite Urine Bilirubin Urine Urobilinogen Ur Leukocyte Esterase Urine WBC (Auto) Urine RBC (Auto) U Hyaline Cast (Auto) U Epithel Cells (Auto) Urine Bacteria (Auto) Urine Yeast SARS-CoV-2 (PCR) Influenza Type A (PCR) Influenza Type B (PCR) RSV (RT-PCR) 01/31/22 01/31/22 01/31/22 07:48 08:08 11:33 WBC RBC Hgb Hct MCV MCH MCHC RDW Std Deviation RDW Coeff of Monica Plt Count MPV Immature Gran % (Auto) Neut % (Auto) Lymph % (Auto) Yates % (Auto) Eos % (Auto) Baso % (Auto) Neut # (Auto) Lymph # (Auto) Yates # (Auto) Eos # (Auto) Baso # (Auto) Immature Gran # (Auto) ESR PT INR Sodium Potassium Chloride Carbon Dioxide Anion Gap BUN Creatinine Est Cr Clr Drug Dosing Est GFR ( Amer) Est GFR (Non-Af Amer) BUN/Creatinine Ratio Glucose POC Glucose 66 L* 104 H 146 H Lactate Calcium Phosphorus Magnesium Total Bilirubin AST ALT Alkaline Phosphatase Ammonia Troponin I High Sens C-Reactive Protein Total Protein Albumin Globulin Albumin/Globulin Ratio Lipase Procalcitonin TSH Urine Color Urine Appearance Urine pH Ur Specific [place] Urine Protein Urine Glucose (UA) Urine Ketones Urine Blood Urine Nitrite Urine Bilirubin Urine Urobilinogen Ur Leukocyte Esterase Urine WBC (Auto) Urine RBC (Auto) U Hyaline Cast (Auto) U Epithel Cells (Auto) Urine Bacteria (Auto) Urine Yeast SARS-CoV-2 (PCR) Influenza Type A (PCR) Influenza Type B (PCR) RSV (RT-PCR) PG Care Time/CCT Total # of Minutes Spent Total Time Spent with Patient: Total time spent is greater than 50% in coordination of care (as documented) at patient's floor/unit and/or counseling patient: Coding Level of Care Code 81977 Inpt Consult Level 4 Diagnoses Acute metabolic encephalopathy G93.41 Acute renal failure N17.9 Infection of total left knee replacement T84.54XA
--- NOTE | 2022-01-31 13:18 | Hospitalist Progress Note ---
Date of Service January 31, 2022 Assessment & Plan (1) Infection of total left knee replacement: Plan: S/p explantation and antibiotic spacer on 01/03/[address] Blake. - Hold cefepime at this time - Orthopedics consulted - Consider switch to alternative agent -> ID recommended ertapenem 500 mg IV daily. Discussed with ID today. (2) Acute renal failure: Plan: Baseline CKD Stage II with CrCl ~78. Now with Cr of 4.2 on admission. Likely some pre-renal from poor eating/drinking, with possible AIN from cefepime? No urgent need for HD at this time. - IVFs started - Bladder appears to have ~[address] mL in it on CT a/p on admission. Beyer placed on 01/31 for UOP > 300 mL. - UA on 01/30 fairly bland. - Nephrology consulted - Discussed today. Continue current plan. (3) Fall: Plan: With possible syncope and confusion. Confusion I think is from cefepime. Would consider this metabolic encephalopathy. - Telemetry - PT/OT (4) Diastolic heart failure: Plan: Patient is not in acute diastolic heart failure. - Continue home ASA & metoprolol - Hold lisinopril for KUN - Presently appears euvolemic. Was on Lasix on discharge on 01/06; hold any Lasix at this time. (5) Hypertension: Plan: BP today was 125/60. - Continue metoprolol; hold lisinopril (6) Depression: Plan: - Hold Wellbutrin until KUN improving (7) Uncontrolled type 2 diabetes mellitus with diabetic neuropathy, with long- term current use of insulin: Plan: A1c is 10.5%. - Continue long-acting insulin glargine 18 units SQ BID (reduced on 01/31 for AM hypoglycemia) - Sliding scale insulin (8) Anemia: Plan: Baseline hgb ~11 - 12. Now down to 9.3. No signs of acute bleeding. Anemia labs shows anemia of chronic disease. - Monitor (9) Sleep apnea: Plan: - Patient will be continued on CPAP at 12 cm of water (10) DVT prophylaxis: Plan: Heparin 5,000 units SQ Q12h FULL CODE - Per patient in the ER with present Admission and Anticipated Discharge Date Admission Date: January 30, 2022 Subjective Doing well today. More alert and awake. No major concerns. Reports no fevers/chills, chest pain, shortness of breath, abdominal pain, nausea, or vomiting. 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 Skin: no rashes, warm and dry Neurologic: moves all extremities and awake Psychiatric: Orientation: alert, oriented to person and cooperative Results & Data Results & Data ([facility]) Vital Signs (Past 12 Hours) Vital Signs Temp Pulse Pulse Resp BP Pulse Ox O2 Del Method 01/31/22 11:21 36.4 C L 85 19 121/62 100 Room Air 01/31/22 09:40 Room Air 01/31/22 08:10 37.4 C 84 21 112/70 98 Room Air 01/31/22 07:30 76 01/31/22 03:35 36.5 C 76 20 120/68 97 Room Air PG Care Time/CCT Total # of Minutes Spent Total Time Spent with Patient: Total time spent is greater than 50% in coordination of care (as documented) at patient's floor/unit and/or counseling patient: Coding Level of Care Code 52007 Subseq Hosp Care Lvl 3 Diagnoses Infection of total left knee replacement T84.54XA Acute renal failure N17.9 Fall W19.XXXA Diastolic heart failure I50.30 Hypertension I10 Depression F32.9 Uncontrolled type 2 diabetes mellitus with diabetic neuropathy, with long-term current use of insulin E11.40; E11.65; Z79.4 Anemia D64.9 Sleep apnea G47.30 DVT prophylaxis Z29.9
--- NOTE | 2022-01-31 16:34 | Electrocardiogram Report ---
Test Reason : Blood Pressure : / mmHG Vent. Rate : 071 BPM Atrial Rate : 071 BPM P-R Int : 180 ms QRS Dur : 080 ms QT Int : 406 ms P-R-T Axes : 059 008 046 degrees QTc Int : 441 ms Normal sinus rhythm Low voltage QRS Septal infarct (cited on or before 31-DEC-2021) Abnormal ECG When compared with ECG of 31-DEC-2021 12:37, No significant change was found Confirmed by Celestino Desir ([id number]) on 01/31/2022 4:34:16 PM Referred By: REFERRED SELF Confirmed By:Celestino Desir
--- NOTE | 2022-01-31 16:47 | Electrocardiogram Report ---
Test Reason : Blood Pressure : / mmHG Vent. Rate : 077 BPM Atrial Rate : 077 BPM P-R Int : 192 ms QRS Dur : 074 ms QT Int : 398 ms P-R-T Axes : 051 003 046 degrees QTc Int : 450 ms Normal sinus rhythm with 1st degree A-V block Nonspecific ST abnormality Abnormal ECG When compared with ECG of 30-JAN-2022 12:53, (unconfirmed) No significant change was found Confirmed by Celestino Desir ([id number]) on 01/31/2022 4:47:08 PM Referred By: REFERRED SELF Confirmed By:Celestino Desir
[2022-01-31 17:37] LABS: Creatinine Clr Calc Pharmacy 20.6 ml/min; Est GFR (African American) 14.9 ml/min; Est GFR (Non-African American) 12.8 ml/min
[2022-01-31 17:38] LABS: BUN Creatinine Ratio 10.7 (10-20); Calcium 8.5 mg/dl (8.5-10.1); Potassium 4.3 mmol/L (3.5-5.1)
--- NOTE | 2022-01-31 18:39 | Orthopedic Progress Note ---
Date of Service January 31, 2022 Assessment & Plan (1) Infection of total left knee replacement: Plan: Antibiotics per infectious disease and treatment of acute renal insufficiency per medical team. With regard to the knee replacements typically 6 weeks antibiotics and then reevaluation. Weightbearing as tolerated with knee brace. Follow-up as outpatient with Dr. Blake. Admission and Anticipated Discharge Date Admission Date: January 30, 2022 Subjective Patient has pain left knee when he puts weight on it during ambulation otherwise no significant pain. Review of Systems Review of Systems: Noncontributory Physical Exam Physical Exam: Left knee incision no acute drainage some old bleeding on skin which is dried and not recent. No erythema no knee effusion. Intact extensor mechanism. Results & Data ([facility]) Vital Signs (Past 12 Hours) Vital Signs Temp Pulse Pulse Resp BP Pulse Ox O2 Del Method 01/31/22 16:30 87 01/31/22 15:27 37.3 C 87 19 107/64 92 Room Air 01/31/22 11:21 36.4 C L 85 19 121/62 100 Room Air 01/31/22 09:40 Room Air 01/31/22 08:10 37.4 C 84 21 112/70 98 Room Air 01/31/22 07:30 76 Laboratory Results White blood cell count 9.9, hemoglobin 9.6, BUN 50 creatinine 4.6
[2022-01-31] MEDS: MELATONIN 3 MG TAB PO PRN (20:26)
[2022-01-31] MEDS: ACETAMINOPHEN 325 MG TAB PO PRN (20:26)
[2022-02-01] MEDS: LACTATED RINGER'S 1,000 ML IV SCH ×2 (06:05→19:45)
[2022-02-01] MEDS: INSULIN ASPART PER UNIT SC SCH ×4 (07:52→21:23)
[2022-02-01] MEDS: HEPARIN SOD 5,000 UNIT/0.5 ML VIAL SQ SCH ×2 (07:58→21:34)
[2022-02-01] MEDS: METOPROLOL TARTRATE 50 MG TAB PO SCH ×2 (07:58→21:35)
[2022-02-01] MEDS: PANTOprazole 40 MG TAB PO SCH (07:58)
[2022-02-01 09:02] LABS: Hematocrit (blood only) 30.7 % (40.1-51.0); Hemoglobin 10.2 g/dl (14.0-18.0); Mean Corpuscular Hemoglobin 29.1 pg (25.0-34.0); Mean Corpuscular Hgb Conc 33.2 g/dL (32.0-36.0); Mean Corpuscular Volume 87.7 fL (80.0-100.0); Mean Platelet Volume 11.4 fL (9.4-12.4); Platelet Count 245 K/uL (130-400); RDW Coefficient of Variation 14.7 % (11.5-14.5); RDW Standard Deviation 47.2 fL (36.4-46.3); White Blood Count 9.06 K/ul (4.8-10.8)
--- NOTE | 2022-02-01 09:38 | Nephrology Progress Note ---
Date of Service February 01, 2022 Assessment & Plan (1) Acute metabolic encephalopathy: Plan: Etiology unclear. Possible cefepime related. In setting of KUN, avoid cyclobenzaprine. Medications currently appropriate for kidney dysfunction. (2) Acute renal failure: Plan: Non-oliguric. Urinary retention noted. AM labs pending. Beyer remains intact draining clear yellow urine. Document strict I/O's. Furosemide held. Continue LR to encourage slightly positive fluid balance. Hold lisinopril and metformin. Medications are currently dosed for kidney dysfunction. DDx prerenal, ATN, AIN, with post obstructive component. Microscopy acellular. Repeat metabolic profile this afternoon. Continue to avoid cefepime at this time. (3) Infection of total left knee replacement: Plan: Cefepime held. ID consult reviewed. Ertapenem started yesterday. Admission and Anticipated Discharge Date Admission Date: January 30, 2022 Subjective Noted hypoglycemia. Casey continues to feel confused. He is oriented to person and place but having difficulty tracking time. He reports concerns regarding short term memory. He states that he is also having difficulty organizing his thoughts. He slept reasonably well. Appetite is good. He feels particularly thirsty this AM. Review of Systems Review of Systems: All systems reviewed & are unremarkable except as noted in HPI & below Physical Exam Constitutional: well developed; no acute distress Eyes: no scleral abnormality and no corneal abnormality ENMT: Mouth: no oral mucosal abnormality and oral mucous membranes not dry Neck: normal visual inspection and trachea midline Respiratory: normal respiratory effort Auscultation: lungs clear to auscultation bilaterally Cardiovascular: Rate/Rhythm: regular rate Heart Sounds: normal S1 and normal S2 Extremities: no edema Musculoskeletal: Extremities: no cyanosis and no clubbing Skin: normal turgor; no lesions Neurologic: Motor/Sensory: no tremor and no asterixis Psychiatric: Orientation: alert Speech: normal rate/rhythm/volume of speech Affect: euthymic affect Results & Data ([facility]) Vital Signs (Past 12 Hours) Vital Signs Temp Pulse Pulse Resp BP Pulse Ox O2 Del Method 02/01/22 07:21 36.5 C 75 18 133/76 100 Room Air 02/01/22 02:51 36.5 C 74 18 123/67 98 Room Air 01/31/22 23:37 36.9 C 84 18 125/70 97 Room Air 01/31/22 22:14 63 Laboratory Results Laboratory Results - last 24 hr 01/31/22 01/31/22 01/31/22 11:33 16:34 16:36 WBC RBC Hgb Hct MCV MCH MCHC RDW Std Deviation RDW Coeff of Monica Plt Count MPV Sodium 138 Potassium 4.3 Chloride 108 H Carbon Dioxide 21 Anion Gap 9 BUN 50 H Creatinine 4.66 H* Est Cr Clr Drug Dosing 20.6 Est GFR ( Amer) 14.9 Est GFR (Non-Af Amer) 12.8 BUN/Creatinine Ratio 10.7 Glucose 76 POC Glucose 146 H 85 Calcium 8.5 Magnesium 01/31/22 02/01/22 02/01/22 20:46 07:42 07:43 WBC RBC Hgb Hct MCV MCH MCHC RDW Std Deviation RDW Coeff of Monica Plt Count MPV Sodium Potassium Chloride Carbon Dioxide Anion Gap BUN Creatinine Est Cr Clr Drug Dosing Est GFR ( Amer) Est GFR (Non-Af Amer) BUN/Creatinine Ratio Glucose POC Glucose 89 61 L* 65 L* Calcium Magnesium 02/01/22 02/01/22 02/01/22 08:03 08:38 08:38 WBC 9.06 RBC 3.50 L Hgb 10.2 L Hct 30.7 L MCV 87.7 MCH 29.1 MCHC 33.2 RDW Std Deviation 47.2 H RDW Coeff of Monica 14.7 H Plt Count 245 MPV 11.4 Sodium Pending Potassium Pending Chloride Pending Carbon Dioxide Pending Anion Gap Pending BUN Pending Creatinine Pending Est Cr Clr Drug Dosing Pending Est GFR ( Amer) Pending Est GFR (Non-Af Amer) Pending BUN/Creatinine Ratio Pending Glucose Pending POC Glucose 70 Calcium Pending Magnesium Pending PG Care Time/CCT Total # of Minutes Spent Total Time Spent with Patient: Total time spent is greater than 50% in coordination of care (as documented) at patient's floor/unit and/or counseling patient: Coding Level of Care Code 16769 Subseq Hosp Care Lvl 3 Diagnoses Acute metabolic encephalopathy G93.41 Acute renal failure N17.9 Infection of total left knee replacement T84.54XA
[2022-02-01 09:47] LABS: BUN Creatinine Ratio 10.5 (10-20); Calcium 8.8 mg/dl (8.5-10.1); Creatinine Clr Calc Pharmacy 20.6 ml/min; Est GFR (African American) 15.2 ml/min; Est GFR (Non-African American) 13.1 ml/min; Magnesium 1.8 mg/dl (1.7-2.4); Potassium 3.9 mmol/L (3.5-5.1)
[2022-02-01] MEDS: LANTUS PER UNIT CHARGE SQ SCH ×2 (09:48→21:36)
[2022-02-01] MEDS: ERTAPENEM SODIUM 500 MG in SYRINGE 0 ML IV SCH (09:58)
[2022-02-01] MEDS ORDERED: ALTEPLASE, RECOMBINANT 1 MG/ML 2ML VIAL INSTIL ONE (12:07)
--- NOTE | 2022-02-01 15:03 | Hospitalist Progress Note ---
Date of Service February 01, 2022 Assessment & Plan (1) Acute renal failure: Plan: Baseline CKD Stage II with CrCl ~78. Now with Cr of 4.2 on admission. Likely some pre-renal from poor eating/drinking, with possible AIN from cefepime? No urgent need for HD at this time. - IVFs started - Bladder appears to have ~[address] mL in it on CT a/p on admission. Beyer placed on 01/31 for UOP > 300 mL. - UA on 01/30 fairly bland. - Nephrology consulted - Continue current plan. Cr slightly better today. (2) Infection of total left knee replacement: Plan: S/p explantation and antibiotic spacer on 01/03/[address] Blake. - Hold cefepime at this time - Orthopedics consulted - No concerns - Consider switch to alternative agent -> ID recommended ertapenem 500 mg IV daily. (End date still 02/12/2022 as there was no abx failure or anything.) (3) Fall: Plan: With possible syncope and confusion. Confusion I think is from cefepime. Would consider this metabolic encephalopathy. - Telemetry - PT/OT (4) Diastolic heart failure: Plan: Patient is not in acute diastolic heart failure. - Continue home ASA & metoprolol - Hold lisinopril for KUN - Presently appears euvolemic. Was on Lasix on discharge on 01/06; hold any Lasix at this time. (5) Hypertension: Plan: BP today was 145/60. - Continue metoprolol; hold lisinopril (6) Depression: Plan: - Hold Wellbutrin until KUN improving (7) Uncontrolled type 2 diabetes mellitus with diabetic neuropathy, with long- term current use of insulin: Plan: A1c is 10.5%. - Continue long-acting insulin glargine 18 units SQ HS (reduced multiple times for AM hypoglycemia) - Sliding scale insulin (8) Anemia: Plan: Baseline hgb ~11 - 12. Now down to 9.3. No signs of acute bleeding. Anemia labs shows anemia of chronic disease. - Monitor (9) Sleep apnea: Plan: - Patient will be continued on CPAP at 12 cm of water (10) DVT prophylaxis: Plan: Heparin 5,000 units SQ Q12h FULL CODE - Per patient in the ER with present Admission and Anticipated Discharge Date Admission Date: January 30, 2022 Subjective Feeling better this AM. No major issues. Reports no fevers/chills, chest pain, shortness of breath, abdominal pain, nausea, or vomiting. Physical Exam Constitutional: WD/WN, vitals as above Eyes: EOM intact bilaterally; no conjunctival abnormality ENMT: external ear and nose normal, oropharynx normal Neck: trachea midline, no thyromegaly normal visual inspection Respiratory: normal respiratory effort, lungs clear to auscultation no respiratory distress Cardiovascular: RRR, no murmur, no edema Gastrointestinal (Abdomen): Inspection/Auscultation: abdomen normal to inspection; abdomen not distended Skin: no rashes, warm and dry Neurologic: moves all extremities and awake Fewer tremors today. Psychiatric: Orientation: alert, oriented to person and cooperative Results & Data Results & Data ([facility]) Vital Signs (Past 12 Hours) Vital Signs Temp Pulse Pulse Resp BP Pulse Ox O2 Del Method 02/01/22 14:54 36.4 C L 88 18 155/72 H 96 Room Air 02/01/22 07:00 76 02/01/22 11:20 36.6 C 78 18 137/73 100 Room Air 02/01/22 07:21 36.5 C 75 18 133/76 100 Room Air PG Care Time/CCT Total # of Minutes Spent Total Time Spent with Patient: Total time spent is greater than 50% in coordination of care (as documented) at patient's floor/unit and/or counseling patient: Coding Level of Care Code 41336 Subseq Hosp Care Lvl 3 Diagnoses Acute renal failure N17.9 Infection of total left knee replacement T84.54XA Fall W19.XXXA Diastolic heart failure I50.30 Hypertension I10 Depression F32.9 Uncontrolled type 2 diabetes mellitus with diabetic neuropathy, with long-term current use of insulin E11.40; E11.65; Z79.4 Anemia D64.9 Sleep apnea G47.30 DVT prophylaxis Z29.9
[2022-02-01] MEDS: MELATONIN 3 MG TAB PO PRN (21:41)
[2022-02-02] MEDS: HEPARIN SOD 5,000 UNIT/0.5 ML VIAL SQ SCH ×2 (08:02→20:46)
[2022-02-02] MEDS: PANTOprazole 40 MG TAB PO SCH (08:02)
[2022-02-02] MEDS: METOPROLOL TARTRATE 50 MG TAB PO SCH ×2 (08:02→20:46)
[2022-02-02] MEDS: LACTATED RINGER'S 1,000 ML IV SCH (08:06)
[2022-02-02 08:13] LABS: Hematocrit (blood only) 30.5 % (40.1-51.0); Mean Corpuscular Hemoglobin 28.8 pg (25.0-34.0); Mean Corpuscular Hgb Conc 32.8 g/dL (32.0-36.0); Mean Corpuscular Volume 87.9 fL (80.0-100.0); Mean Platelet Volume 10.9 fL (9.4-12.4); Platelet Count 247 K/uL (130-400); RDW Coefficient of Variation 14.6 % (11.5-14.5); Red Blood Count 3.47 M/uL (4.63-6.08); White Blood Count 10.48 K/ul (4.8-10.8)
[2022-02-02] MEDS: INSULIN ASPART PER UNIT SC SCH ×4 (08:13→20:45)
[2022-02-02 09:36] LABS: BUN Creatinine Ratio 10.5 (10-20); Calcium 8.4 mg/dl (8.5-10.1); Creatinine Clr Calc Pharmacy 22.5 ml/min; Est GFR (Non-African American) 14.7 ml/min; Potassium 3.7 mmol/L (3.5-5.1)
--- NOTE | 2022-02-02 09:43 | Nephrology Progress Note ---
Date of Service February 02, 2022 Assessment & Plan (1) Acute renal failure: Plan: Non-oliguric. Urinary retention noted on admission. Reasonable to attempt removing Beyer today for voiding trial. Stop IV LR and encourage PO intake. Document strict I/O's. Goal is to encourage even to slightly positive fluid balance. Furosemide held. Continue to hold lisinopril and metformin. Medications are currently dosed for kidney dysfunction. DDx prerenal, ATN, AIN, with post obstructive component. Microscopy acellular. Continue to avoid cefepime at this time. (2) Acute metabolic encephalopathy: Plan: Etiology unclear. Possible cefepime related. Significant improvement. (3) Infection of total left knee replacement: Plan: ID consult reviewed. Abx therapy switched to Ertapenem. Admission and Anticipated Discharge Date Admission Date: January 30, 2022 Subjective No acute events overnight. Casey reports feeling much better this AM. Appetite is good and he is drinking plenty of fluid. No fluid retention or edema. No shortness of breath. No fevers or chills. Beyer draining clear yellow urine. Review of Systems Review of Systems: All systems reviewed & are unremarkable except as noted in HPI & below Physical Exam Constitutional: well developed; no acute distress Eyes: no scleral abnormality and no corneal abnormality ENMT: Mouth: no oral mucosal abnormality and oral mucous membranes not dry Neck: normal visual inspection and trachea midline Respiratory: normal respiratory effort Auscultation: lungs clear to auscultation bilaterally Cardiovascular: Rate/Rhythm: regular rate Heart Sounds: normal S1 and normal S2 Extremities: no edema Musculoskeletal: Extremities: no cyanosis and no clubbing Skin: normal turgor; no lesions Neurologic: Motor/Sensory: no tremor and no asterixis Psychiatric: Orientation: alert Speech: normal rate/rhythm/volume of speech Affect: euthymic affect Genitourinary: Beyer with clear yellow urine in bag Results & Data ([facility]) Vital Signs (Past 12 Hours) Vital Signs Temp Pulse Pulse Resp BP Pulse Ox O2 Del Method 02/02/22 08:00 36.8 C 80 18 147/68 H 96 Room Air 02/02/22 03:39 36.6 C 81 18 142/76 H 96 Room Air 02/01/22 22:24 69 02/01/22 22:40 36.7 C 89 18 137/74 97 Room Air 02/01/22 22:35 Room Air Laboratory Results Laboratory Results - last 24 hr 02/01/22 02/01/22 02/01/22 08:38 11:40 16:19 WBC RBC Hgb Hct MCV MCH MCHC RDW Std Deviation RDW Coeff of Monica Plt Count MPV Sodium 140 Potassium 3.9 Chloride 108 H Carbon Dioxide 23 Anion Gap 9 BUN 48 H Creatinine 4.58 H* Est Cr Clr Drug Dosing 20.6 Est GFR ( Amer) 15.2 Est GFR (Non-Af Amer) 13.1 BUN/Creatinine Ratio 10.5 Glucose 90 POC Glucose 116 H 93 Calcium 8.8 Magnesium 1.8 02/01/22 02/02/22 02/02/22 20:02 07:43 07:46 WBC 10.48 RBC 3.47 L Hgb 10.0 L Hct 30.5 L MCV 87.9 MCH 28.8 MCHC 32.8 RDW Std Deviation 47.0 H RDW Coeff of Monica 14.6 H Plt Count 247 MPV 10.9 Sodium Potassium Chloride Carbon Dioxide Anion Gap BUN Creatinine Est Cr Clr Drug Dosing Est GFR ( Amer) Est GFR (Non-Af Amer) BUN/Creatinine Ratio Glucose POC Glucose 131 H 80 Calcium Magnesium 02/02/22 07:46 WBC RBC Hgb Hct MCV MCH MCHC RDW Std Deviation RDW Coeff of Monica Plt Count MPV Sodium 142 Potassium 3.7 Chloride 109 H Carbon Dioxide 24 Anion Gap 9 BUN 44 H Creatinine 4.18 H D Est Cr Clr Drug Dosing 22.5 Est GFR ( Amer) 17.0 Est GFR (Non-Af Amer) 14.7 BUN/Creatinine Ratio 10.5 Glucose 67 L POC Glucose Calcium 8.4 L Magnesium PG Care Time/CCT Total # of Minutes Spent Total Time Spent with Patient: Total time spent is greater than 50% in coordination of care (as documented) at patient's floor/unit and/or counseling patient: Coding Level of Care Code 90220 Subseq Hosp Care Lvl 3 Diagnoses Acute renal failure N17.9 Acute metabolic encephalopathy G93.41 Infection of total left knee replacement T84.54XA
[2022-02-02] MEDS: ERTAPENEM SODIUM 500 MG in SYRINGE 0 ML IV SCH (10:28)
--- NOTE | 2022-02-02 10:48 | Infectious Disease Progress Nt ---
Date of Service February 02, 2022 Assessment & Plan (1) Acute renal failure: (2) Gram-negative bacteremia: (3) Infection of total left knee replacement: Plan 56 yo M with history of poorly controlled DM2, peripheral neuropathy, CHF, HTN, HLD, depression, JENNIFFER, partial amputation of R great toe, L knee streptococcal TKA s/p revision 2019 previously on oral suppressive cephalexin, recent admission for Serratia L knee PJI and bacteremia s/p total explant and spacer (01/03). OR cultures and blood cultures grew conway-sensitive Serratia, but a L knee aspirate grew Serratia intermediate to ceftriaxone, so the patient was placed on cefepime with a plan for 6 weeks duration through 02/14. He presented on 01/30 with progressive confusion, dizziness, syncopal episode, found to have worsening KUN with Cr peak at 4.66. There is concern for KUN secondary to cefepime. Therefore, cefepime was stopped and he was instead started on ertapenem. Problems: #KUN #Serratia L knee PJI and bacteremia s/p total explant and spacer #Levofloxacin intolerance: GI symptoms #History of L knee streptococcal TKA s/p revision 2019 previously on oral suppressive cephalexin Recommendations: -Continue ertapenem 500 mg IV daily (renally dosed) via PICC to complete 6 week course through 02/14. If CrCl improves >30, would increase ertapenem to 1 g IV q24h -Weekly CBC with diff, CMP while on ertapenem to monitor for antimicrobial toxicity, to be sent to patients primary team. -Once antibiotics have completed, recommend 2-8 weeks of observation prior to reimplantation -Will sign off. Please page ID Connect with any further questions Admission and Anticipated Discharge Date Admission Date: January 30, 2022 Subjective This patient recommendation is based on a telemedicine consult request which was completed asynchronously through chart review and information provided by the primary physician. The patient was not seen or examined today. The evaluation is consultative in nature and all patient care and treatment decisions can either be accepted or rejected by the patient's primary hospital-based treating physician using their own independent medical judgment for their patient. No acute events Cr downtrended to 4.18 today Continues on ertapenem Review of System Pt not seen Physical Exam Physical Exam: Pt not seen Results & Data ([facility]) Vital Signs (Past 12 Hours) Vital Signs Temp Pulse Pulse Resp BP Pulse Ox O2 Del Method 02/02/22 10:40 79 02/02/22 08:00 36.8 C 80 18 147/68 H 96 Room Air 02/02/22 03:39 36.6 C 81 18 142/76 H 96 Room Air Laboratory Results Short CBC 02/02/22 Range/Units 07:46 WBC 10.48 (4.8-10.8) K/ul Hgb 10.0 L (14.0-18.0) g/dl Hct 30.5 L (40.1-51.0) % Plt Count 247 (130-400) K/uL BMP 02/02/22 07:46 Sodium 142 Potassium 3.7 Chloride 109 H Carbon Dioxide 24 BUN 44 H Creatinine 4.18 H D Glucose 67 L Calcium 8.4 L Diagnostic Findings Microbiology 01/30/22 19:35 Blood Aerobic Blood Culture - Preliminary No growth in Aerobic bottle after 48 hours. 01/30/22 19:35 Blood Anaerobic Blood Culture - Preliminary No growth in Anaerobic bottle after 48 hours. 01/30/22 13:21 Blood Aerobic Blood Culture - Preliminary No growth in Aerobic bottle after 48 hours. 01/30/22 13:21 Blood Anaerobic Blood Culture - Preliminary No growth in Anaerobic bottle after 48 hours. 01/30/22 15:32 Urine,Clean Catch Urine Culture - Final Three types of organisms present, all low counts probable skin erik. No further identifications or s ensitivities to follow. Medications Administered Current Inpatient Medications Acetaminophen (Acetaminophen 325 Mg Tab) 650 mg PO Q4H PRN PRN Reason: pain/fever Stop: 03/01/22 18:25 Last Admin: 01/31/22 20:26 Dose: 650 mg Dextrose (Dextrose 50% 50 Ml Syringe) 25 - 50 ml IV UD PRN; Protocol PRN Reason: Hypoglycemia Protocol Stop: 03/01/22 18:25 Glucagon (Glucagon For Inj 1 Mg Vial) 1 mg SQ UD PRN; Protocol PRN Reason: Hypoglycemia Protocol Stop: 03/01/22 18:25 Glucose (Glucose 40% Gel 15 Gm Tube) 15 - 30 gm PO UD PRN; Protocol PRN Reason: Hypoglycemia Protocol Stop: 03/01/22 18:25 Glucose (Glucose 10 Tab/Tube) 4 - 8 tab PO UD PRN; Protocol PRN Reason: Hypoglycemia Treatment Stop: 03/01/22 18:25 Heparin Sodium (Beef Lung) (Heparin 10 Unit/Ml 5 Ml Flush) 5 ml FLUSH PRN PRN PRN Reason: Flush Stop: 03/02/22 00:35 Heparin Sodium (Porcine) (Heparin Sod 5,000 Unit/0.5 Ml Vial) 5,000 units SQ Q12 [facility] Stop: 03/01/22 20:59 Last Admin: 02/02/22 08:02 Dose: 5,000 units Ertapenem 500 mg/ Syringe 5 mls @ 2 mls/min IV Q24H [facility]; Protocol Stop: 03/14/22 10:14 Last Admin: 02/02/22 10:28 Dose: 2 mls/min Insulin Aspart (Insulin Aspart Per Unit) 0 units SC ACHS [facility] Stop: 03/01/22 20:59 Last Admin: 02/02/22 08:13 Dose: 4 units Insulin Glargine (Lantus Per Unit Charge) 18 units SQ HS ALL Stop: 03/03/22 20:59 Last Admin: 02/01/22 21:36 Dose: 18 units Melatonin (Melatonin 3 Mg Tab) 6 mg PO HS PRN PRN Reason: Sleep Stop: 03/01/22 18:25 Last Admin: 02/01/22 21:41 Dose: 6 mg Metoprolol Tartrate (Metoprolol Tartrate 50 Mg Tab) 50 mg PO BID [facility] Stop: 03/01/22 20:59 Last Admin: 02/02/22 08:02 Dose: 50 mg Miscellaneous (Carbohydrates For Hypoglycemia ) 15 - 30 gm PO UD PRN PRN Reason: Hypoglycemia Protocol Stop: 03/01/22 18:25 Last Admin: 01/31/22 07:48 Dose: 15 gm Ondansetron HCl (Ondansetron Inj 2 Mg/Ml 2 Ml Vial) 4 mg IV Q4H PRN PRN Reason: Nausea Stop: 03/01/22 18:25 Oxycodone HCl (Oxycodone Hcl Ir 5 Mg Tab (Immediate Release)) 5 mg PO Q6 PRN PRN Reason: Severe Pain Stop: 02/13/22 18:25 Pantoprazole Sodium (Pantoprazole 40 Mg Tab) 40 mg PO QAM [facility] Stop: 03/02/22 08:59 Last Admin: 02/02/22 08:02 Dose: 40 mg
--- NOTE | 2022-02-02 15:04 | Hospitalist Progress Note ---
Date of Service February 02, 2022 Assessment & Plan (1) Acute renal failure: Plan: Baseline CKD Stage II with CrCl ~78. Now with Cr of 4.2 on admission. Likely some pre-renal from poor eating/drinking, with possible AIN from cefepime? No urgent need for HD at this time. - IVFs stopped on 02/02 - Bladder appeared to have ~[address] mL in it on CT a/p on admission. Beyer placed on 01/31 for UOP > 300 mL. - UA on 01/30 fairly bland. - Nephrology consulted - Continue current plan. Cr better today at 4.2. (2) Infection of total left knee replacement: Plan: S/p explantation and antibiotic spacer on 01/03/[address] Blake. - Hold cefepime at this time - Orthopedics consulted - No concerns - Consider switch to alternative agent -> ID recommended ertapenem 500 mg IV daily. (End date still 02/14/2022 as there was no abx failure or anything.) Increase to 1,000 if CrCL > 30 mL/min. (3) Fall: Plan: With possible syncope and confusion. Confusion I think is from cefepime. Would consider this metabolic encephalopathy. - PT/OT (4) Diastolic heart failure: Plan: Patient is not in acute diastolic heart failure. - Continue home ASA & metoprolol - Hold lisinopril for KUN - Presently appears euvolemic. Was on Lasix on discharge on 01/06; hold any Lasix at this time. Still euvolemic on 02/02. (5) Hypertension: Plan: BP today was 125/60. - Continue metoprolol; hold lisinopril (6) Depression: Plan: - Hold Wellbutrin until KUN improving (7) Uncontrolled type 2 diabetes mellitus with diabetic neuropathy, with long- term current use of insulin: Plan: A1c is 10.5%. - Continue long-acting insulin glargine 18 units SQ HS (reduced multiple times for AM hypoglycemia) - Sliding scale insulin (8) Anemia: Plan: Baseline hgb ~11 - 12. Now down to 10.0. No signs of acute bleeding. Anemia labs shows anemia of chronic disease. - Monitor (9) Sleep apnea: Plan: - Patient will be continued on CPAP at 12 cm of water (10) DVT prophylaxis: Plan: Heparin 5,000 units SQ Q12h FULL CODE - Per patient in the ER with present Admission and Anticipated Discharge Date Admission Date: January 30, 2022 Subjective Doing better today. More energy, less tremor and less confusion. No overnight events. Physical Exam Constitutional: WD/WN, vitals as above Eyes: EOM intact bilaterally; no conjunctival abnormality ENMT: external ear and nose normal, oropharynx normal Neck: trachea midline, no thyromegaly normal visual inspection Respiratory: normal respiratory effort, lungs clear to auscultation no re spiratory distress Cardiovascular: RRR, no murmur, no edema Gastrointestinal (Abdomen): Inspection/Auscultation: abdomen normal to inspection; abdomen not distended Skin: no rashes, warm and dry Neurologic: moves all extremities and awake Psychiatric: Orientation: alert, oriented to person and cooperative Results & Data Results & Data ([facility]) Vital Signs (Past 12 Hours) Vital Signs Temp Pulse Pulse Resp BP Pulse Ox O2 Del Method 02/02/22 11:00 Room Air 02/02/22 12:00 36.8 C 81 18 120/71 99 Room Air 02/02/22 10:41 Room Air 02/02/22 10:40 79 02/02/22 08:00 36.8 C 80 18 147/68 H 96 Room Air 02/02/22 03:39 36.6 C 81 18 142/76 H 96 Room Air PG Care Time/CCT Total # of Minutes Spent Total Time Spent with Patient: Total time spent is greater than 50% in coordination of care (as documented) at patient's floor/unit and/or counseling patient: Coding Level of Care Code 43282 Subseq Hosp Care Lvl 2 Diagnoses Acute renal failure N17.9 Infection of total left knee replacement T84.54XA Fall W19.XXXA Diastolic heart failure I50.30 Hypertension I10 Depression F32.9 Uncontrolled type 2 diabetes mellitus with diabetic neuropathy, with long-term current use of insulin E11.40; E11.65; Z79.4 Anemia D64.9 Sleep apnea G47.30 DVT prophylaxis Z29.9
[2022-02-02] MEDS: LANTUS PER UNIT CHARGE SQ SCH (20:45)
[2022-02-02] MEDS: MELATONIN 3 MG TAB PO PRN (20:48)
[2022-02-03 06:36] LABS: Hematocrit (blood only) 29.6 % (40.1-51.0); Mean Corpuscular Hemoglobin 29.1 pg (25.0-34.0); Mean Corpuscular Hgb Conc 33.8 g/dL (32.0-36.0); Mean Platelet Volume 11.3 fL (9.4-12.4); Platelet Count 266 K/uL (130-400); RDW Coefficient of Variation 14.5 % (11.5-14.5); RDW Standard Deviation 45.6 fL (36.4-46.3); Red Blood Count 3.44 M/uL (4.63-6.08); White Blood Count 9.93 K/ul (4.8-10.8)
[2022-02-03 06:53] LABS: Albumin Level 3.2 gm/dl (3.4-5.0); BUN Creatinine Ratio 10.9 (10-20); Bilirubin,Total 0.4 mg/dl (0.2-1.0); Calcium 8.5 mg/dl (8.5-10.1); Creatinine Clr Calc Pharmacy 24.5 ml/min; Est GFR (African American) 18.8 ml/min; Est GFR (Non-African American) 16.2 ml/min; Globulin 3.1 gm/dl (2.5-4.0); Magnesium 1.6 mg/dl (1.7-2.4); Potassium 3.5 mmol/L (3.5-5.1); Total Protein 6.3 gm/dl (6.0-8.3)
[2022-02-03] MEDS: PANTOprazole 40 MG TAB PO SCH (07:17)
[2022-02-03] MEDS: METOPROLOL TARTRATE 50 MG TAB PO SCH ×2 (07:17→21:44)
[2022-02-03] MEDS: HEPARIN SOD 5,000 UNIT/0.5 ML VIAL SQ SCH ×3 (07:18→21:44)
[2022-02-03 07:20] LABS: INR 1.3 (0.9-1.1)
[2022-02-03] MEDS: INSULIN ASPART PER UNIT SC SCH ×4 (08:26→21:42)
[2022-02-03] MEDS: MAGNESIUM SULFATE / D5W 1 GM/100 ML BAG IV SCH ×3 (08:34→12:35)
[2022-02-03] MEDS: ERTAPENEM SODIUM 500 MG in SYRINGE 0 ML IV SCH (08:34)
[2022-02-03] MEDS: oxyCODONE HCL IR 5 MG TAB (IMMEDIATE RELEASE) PO PRN ×2 (08:43→21:43)
--- NOTE | 2022-02-03 08:53 | Nephrology Progress Note ---
Date of Service February 03, 2022 Assessment & Plan (1) Acute renal failure: Plan: * Non-oliguric KUN due to dehydration in the setting of ACEi therapy. Urine sediment was negative for cellular casts. Urinary retention identified at the time of admission. Beyer catheter remains in place * Lisinopril and metformin have been held * Kidney function is gradually improving w/ conservative management. Cr peak 4.6, baseline Cr 1.2 * Cefepime stopped due to concerns of neurologic side effects in the setting of KUN * Encourage oral intake, monitor PRP (2) Acute metabolic encephalopathy: Plan: * Etiology unclear. Possible cefepime related. Significant improvement (3) Infection of total left knee replacement: Plan: * ID consult reviewed. Abx therapy switched to Ertapenem Admission and Anticipated Discharge Date Admission Date: January 30, 2022 Subjective Mr. Berger was evaluated in his hospital room this morning. He reports back discomfort from being in bed and requests to get up to a chair today. Beyer catheter remains in place draining clear, yellow urine Review of Systems Constitutional: no fever Eyes: no problem reported Ear, Nose, Mouth, Throat: no problem reported Respiratory: no cough and no dyspnea Cardiovascular: no chest pain Gastrointestinal: no abdominal pain, no nausea and no vomiting Neurologic: no confusion Physical Exam Constitutional: not in distress Eyes: PERRL, conjunctivae normal, anicteric sclerae ENMT: external ear and nose normal, oropharynx normal Neck: trachea midline, no thyromegaly Respiratory: normal respiratory effort, lungs clear to auscultation Cardiovascular: RRR, no murmur, no edema Gastrointestinal (Abdomen): normal bowel sounds, soft, nontender, no hepatosplenomegaly Neurologic: awake; not confused Results & Data ([facility]) Vital Signs (Past 12 Hours) Vital Signs Temp Pulse Pulse Resp BP Pulse Ox O2 Del Method 02/03/22 07:36 36.8 C 77 18 138/73 95 Room Air 02/03/22 07:10 76 02/03/22 02:56 36.7 C 75 18 122/69 95 Room Air 02/03/22 00:39 82 02/02/22 23:12 36.8 C 79 18 132/71 94 Room Air Laboratory Results Laboratory Tests 01/30/22 02/03/22 02/03/22 15:32 06:01 06:01 WBC 9.93 Hgb 10.0 L Hct 29.6 L Plt Count 266 Sodium 140 Potassium 3.5 Chloride 107 Carbon Dioxide 24 BUN 42 H Creatinine 3.84 H D Glucose 93 Calcium 8.5 Magnesium 1.6 L Albumin 3.2 L Urine Color Yellow Urine Appearance Clear Urine pH 5.5 Ur Specific [place] 1.010 Urine Protein 2+ H Urine Glucose (UA) Negative Urine Blood 1+ H Urine Nitrite Negative Ur Leukocyte Esterase Negative Urine WBC (Auto) 1-5 Urine RBC (Auto) 0-4 PG Care Time/CCT Total # of Minutes Spent Total Time Spent with Patient: Total time spent is greater than 50% in coordination of care (as documented) at patient's floor/unit and/or counseling patient: Coding Level of Care Code 14661 Subseq Hosp Care Lvl 3 Diagnoses Acute renal failure N17.9 Acute metabolic encephalopathy G93.41 Infection of total left knee replacement T84.54XA
--- NOTE | 2022-02-03 11:53 | Hospitalist Progress Note ---
Date of Service February 03, 2022 Assessment & Plan (1) Acute renal failure: Plan: Baseline CKD Stage II with CrCl ~78. Now with Cr of 4.2 on admission. Likely some pre-renal from poor eating/drinking, with possible AIN from cefepime? No urgent need for HD at this time. - IVFs stopped on 02/02 - Bladder appeared to have ~260 mL in it on CT a/p on admission. Beyer placed on 01/31 for UOP > 300 mL. - UA on 01/30 fairly bland. - Nephrology consulted - Continue current plan. Cr better today at 3.85. (2) Infection of total left knee replacement: Plan: S/p explantation and antibiotic spacer on 01/03/[address] Blake. - Hold cefepime at this time - Orthopedics consulted - No concerns - Consider switch to alternative agent -> ID recommended ertapenem 500 mg IV daily. (End date still 02/14/2022 as there was no abx failure.) Increase to 1,000 if CrCL > 30 mL/min. (3) Fall: Plan: With possible syncope and confusion. Confusion I think is from cefepime. Would consider this metabolic encephalopathy. - PT/OT (4) Diastolic heart failure: Plan: Patient is not in acute diastolic heart failure. - Continue home ASA & metoprolol - Hold lisinopril for KUN - Presently appears euvolemic. Was on Lasix on discharge on 01/06; hold any L asix at this time. Still euvolemic on 02/03. (5) Hypertension: Plan: BP today was 145/60. - Continue metoprolol; hold lisinopril (6) Depression: Plan: - Held Wellbutrin until KUN improved; resume on 02/03 (7) Uncontrolled type 2 diabetes mellitus with diabetic neuropathy, with long- term current use of insulin: Plan: A1c is 10.5%. - Continue long-acting insulin glargine 18 units SQ HS (reduced multiple times for AM hypoglycemia) - Sliding scale insulin -> Blood sugars have been good x 24 hours. Continue. (8) Anemia: Plan: Baseline hgb ~11 - 12. Now down to 10.0. No signs of acute bleeding. Anemia labs shows anemia of chronic disease. - Monitor (9) Sleep apnea: Plan: - Patient will be continued on CPAP at 12 cm of water (10) DVT prophylaxis: Plan: Heparin 5,000 units SQ Q12h FULL CODE - Per patient in the ER with present Admission and Anticipated Discharge Date Admission Date: January 30, 2022 Subjective Doing well today. No major issues. Reports no fevers/chills, chest pain, shortness of breath, abdominal pain, nausea, or vomiting. Physical Exam Constitutional: WD/WN, vitals as above Eyes: EOM intact bilaterally; no conjunctival abnormality ENMT: external ear and nose normal, oropharynx normal Neck: trachea midline, no thyromegaly normal visual inspection Respiratory: normal respiratory effort, lungs clear to auscultation no respiratory distress Cardiovascular: RRR, no murmur, no edema Gastrointestinal (Abdomen): Inspection/Auscultation: abdomen normal to inspection; abdomen not distended Skin: no rashes, warm and dry Neurologic: moves all extremities and awake Psychiatric: Orientation: alert, oriented to person and cooperative Results & Data Results & Data ([facility]) Vital Signs (Past 12 Hours) Vital Signs Temp Pulse Pulse Resp BP Pulse Ox O2 Del Method 02/03/22 11:38 36.8 C 76 20 147/75 H 97 Room Air 02/03/22 07:36 36.8 C 77 18 138/73 95 Room Air 02/03/22 07:10 76 02/03/22 02:56 36.7 C 75 18 122/69 95 Room Air 02/03/22 00:39 82 PG Care Time/CCT Total # of Minutes Spent Total Time Spent with Patient: Total time spent is greater than 50% in coordination of care (as documented) at patient's floor/unit and/or counseling patient: Coding Level of Care Code 36880 Subseq Hosp Care Lvl 3 Diagnoses Acute renal failure N17.9 Infection of total left knee replacement T84.54XA Fall W19.XXXA Diastolic heart failure I50.30 Hypertension I10 Depression F32.9 Uncontrolled type 2 diabetes mellitus with diabetic neuropathy, with long-term current use of insulin E11.40; E11.65; Z79.4 Anemia D64.9 Sleep apnea G47.30 DVT prophylaxis Z29.9
[2022-02-03] MEDS: MELATONIN 3 MG TAB PO PRN (21:43)
[2022-02-03] MEDS: LANTUS PER UNIT CHARGE SQ SCH (21:43)
[2022-02-04 06:35] LABS: Hematocrit (blood only) 31.7 % (40.1-51.0); Hemoglobin 10.6 g/dl (14.0-18.0); Mean Corpuscular Hgb Conc 33.4 g/dL (32.0-36.0); Mean Corpuscular Volume 86.8 fL (80.0-100.0); Mean Platelet Volume 10.8 fL (9.4-12.4); Platelet Count 287 K/uL (130-400); RDW Coefficient of Variation 14.3 % (11.5-14.5); RDW Standard Deviation 45.5 fL (36.4-46.3); Red Blood Count 3.65 M/uL (4.63-6.08)
[2022-02-04 07:06] LABS: BUN Creatinine Ratio 12.4 (10-20); Calcium 8.7 mg/dl (8.5-10.1); Creatinine Clr Calc Pharmacy 30.5 ml/min; Est GFR (African American) 24.8 ml/min; Est GFR (Non-African American) 21.4 ml/min; Potassium 3.6 mmol/L (3.5-5.1)
--- NOTE | 2022-02-04 09:05 | Nephrology Progress Note ---
Date of Service February 04, 2022 Assessment & Plan (1) Acute renal failure: Plan: * Non-oliguric KUN due to dehydration in the setting of ACEi therapy. Urine sediment was negative for cellular casts. Urinary retention identified at the time of admission. Beyer catheter remains in place * Continue to hold lisinopril and metformin * Kidney function is gradually improving w/ conservative management. Cr peak 4.6, baseline Cr 1.2. Volume status and electrolyte balance remain acceptable * Cefepime stopped due to concerns of neurologic side effects in the setting of KUN * Encourage oral hydration, monitor PRP (2) Acute metabolic encephalopathy: Plan: * Etiology unclear. Possible cefepime related. Significant improvement (3) Infection of total left knee replacement: Plan: * ID consult reviewed. Abx therapy switched to Ertapenem Admission and Anticipated Discharge Date Admission Date: January 30, 2022 Subjective Mr. Berger was evaluated in his hospital room this morning. He voices no new medical concerns. Beyer catheter remains in place draining clear, yellow urine. Review of Systems Constitutional: no fever Eyes: no problem reported Ear, Nose, Mouth, Throat: no problem reported Respiratory: no cough and no dyspnea Cardiovascular: no chest pain Gastrointestinal: no abdominal pain, no nausea and no vomiting Neurologic: no confusion Physical Exam Constitutional: not in distress Eyes: PERRL, conjunctivae normal, anicteric sclerae ENMT: external ear and nose normal, oropharynx normal Neck: trachea midline, no thyromegaly Respiratory: normal respiratory effort, lungs clear to auscultation Cardiovascular: RRR, no murmur, no edema Gastrointestinal (Abdomen): normal bowel sounds, soft, nontender, no hepatosplenomegaly Neurologic: awake; not confused Results & Data ([facility]) Vital Signs (Past 12 Hours) Vital Signs Temp Pulse Pulse Resp BP Pulse Ox O2 Del Method 02/04/22 07:38 36.8 C 88 14 147/74 H 99 Room Air 02/04/22 07:20 86 02/04/22 02:57 37.1 C 83 18 148/80 H 94 Room Air 02/04/22 00:27 98 H 02/03/22 23:00 37 C 99 H 18 130/70 94 Room Air Laboratory Results Laboratory Tests 01/31/22 02/01/22 02/02/22 16:34 08:38 07:46 WBC Hgb Hct Plt Count Sodium Potassium Chloride Carbon Dioxide BUN Creatinine 4.66 H* 4.58 H* 4.18 H D 02/03/22 02/04/22 02/04/22 06:01 06:19 06:19 WBC 12.60 H Hgb 10.6 L Hct 31.7 L Plt Count 287 Sodium 136 Potassium 3.6 Chloride 103 Carbon Dioxide 25 BUN 38 H Creatinine 3.84 H D 3.06 H D PG Care Time/CCT Total # of Minutes Spent Total Time Spent with Patient: Total time spent is greater than 50% in coordination of care (as documented) at patient's floor/unit and/or counseling patient: Coding Level of Care Code 07331 Subseq Hosp Care Lvl 3 Diagnoses Acute renal failure N17.9 Acute metabolic encephalopathy G93.41 Infection of total left knee replacement T84.54XA
[2022-02-04] MEDS: PANTOprazole 40 MG TAB PO SCH (10:14)
[2022-02-04] MEDS: METOPROLOL TARTRATE 50 MG TAB PO SCH ×2 (10:14→21:59)
[2022-02-04] MEDS: HEPARIN SOD 5,000 UNIT/0.5 ML VIAL SQ SCH ×2 (10:16→21:36)
[2022-02-04] MEDS: INSULIN ASPART PER UNIT SC SCH ×4 (10:18→21:36)
[2022-02-04] MEDS: ERTAPENEM SODIUM 500 MG in SYRINGE 0 ML IV SCH (11:17)
[2022-02-04] MEDS: ACETAMINOPHEN 325 MG TAB PO PRN (12:11)
--- NOTE | 2022-02-04 13:28 | Hospitalist Progress Note ---
Date of Service February 04, 2022 Assessment & Plan (1) Acute renal failure: Plan: Baseline CKD Stage II with CrCl ~78. Cr of 4.2 on admission. Likely some pre- renal from poor eating/drinking, with possible AIN from cefepime? - IVFs stopped on 02/02 - Beyer placed on 01/31 for UOP > 300 mL. Voiding trial on 02/04. Beyer ordered to be removed. - Nephrology consulted - Continue current plan. Cr better today at 3.0. Dispo: Had hoped to go home, but very orthostatic on 02/03: 133/67 -> 85/55 (sitting to standing). Not sure if he's having some post-ATN diuresis? Has >2L of UOP in last 24 hours. Will trial GUEVARA soni. (2) Infection of total left knee replacement: Plan: S/p explantation and antibiotic spacer on 01/03/[address] Blake. - Hold cefepime at this time - Orthopedics consulted - No concerns - Consider switch to alternative agent -> ID recommended ertapenem 500 mg IV daily. (End date still 02/14/2022 as there was no abx failure.) Increased to 1,000 for 02/05 as Cr improves. (3) Fall: Plan: With possible syncope and confusion. Confusion I think is from cefepime. Improved with time. Would consider this metabolic encephalopathy. - PT/OT (4) Diastolic heart failure: Plan: Patient is not in acute diastolic heart failure. - Continue home ASA & metoprolol - Hold lisinopril for KUN - Presently appears euvolemic. Was on Lasix on discharge on 01/06; hold any Lasix at this time. Still euvolemic on 02/04. (5) Hypertension: Plan: BP today was 150/60. - Continue metoprolol; hold lisinopril (6) Depression: Plan: Was on bupropion on last discharge; not on meds now. - Will need to ask patient. (7) Uncontrolled type 2 diabetes mellitus with diabetic neuropathy, with long- term current use of insulin: Plan: A1c is 10.5%. - Continue long-acting insulin glargine 18 units SQ HS (reduced multiple times for AM hypoglycemia) - Sliding scale insulin -> Blood sugars have been good x 24 hours. Continue. (8) Anemia: Plan: Baseline hgb ~11 - 12. Now down to 10.0. No signs of acute bleeding. Anemia labs shows anemia of chronic disease. - Monitor (9) Sleep apnea: Plan: - Patient will be continued on CPAP at 12 cm of water (10) DVT prophylaxis: Plan: Heparin 5,000 units SQ Q12h FULL CODE - Per patient in the ER with present Admission and Anticipated Discharge Date Admission Date: January 30, 2022 Subjective Discouraged today. Has a lot of pain in his neck and shoulders/upper back. Reports no fevers/chills, chest pain, shortness of breath, abdominal pain, nausea, or vomiting. Physical Exam Constitutional: WD/WN, vitals as above Eyes: EOM intact bilaterally; no conjunctival abnormality ENMT: external ear and nose normal, oropharynx normal Neck: trachea midline, no thyromegaly normal visual inspection Respiratory: normal respiratory effort, lungs clear to auscultation no respiratory distress Cardiovascular: RRR, no murmur, no edema Gastrointestinal (Abdomen): Inspection/Auscultation: abdomen normal to inspection; abdomen not distended Skin: no rashes, warm and dry Neurologic: moves all extremities and awake Psychiatric: Orientation: alert, oriented to person and cooperative Results & Data Results & Data ([facility]) Vital Signs (Past 12 Hours) Vital Signs Temp Pulse Pulse Resp BP Pulse Ox O2 Del Method 02/04/22 12:10 37.4 C 82 14 150/77 H 93 Room Air 02/04/22 07:38 36.8 C 88 14 147/74 H 99 Room Air 02/04/22 07:20 86 02/04/22 02:57 37.1 C 83 18 148/80 H 94 Room Air PG Care Time/CCT Total # of Minutes Spent Total Time Spent with Patient: Total time spent is greater than 50% in coordination of care (as documented) at patient's floor/unit and/or counseling patient: Coding Level of Care Code 26706 Subseq Hosp Care Lvl 3 Diagnoses Acute renal failure N17.9 Infection of total left knee replacement T84.54XA Fall W19.XXXA Diastolic heart failure I50.30 Hypertension I10 Depression F32.9 Uncontrolled type 2 diabetes mellitus with diabetic neuropathy, with long-term current use of insulin E11.40; E11.65; Z79.4 Anemia D64.9 Sleep apnea G47.30 DVT prophylaxis Z29.9
[2022-02-04] MEDS: LANTUS PER UNIT CHARGE SQ SCH (21:35)
--- NOTE | 2022-02-05 08:19 | Hospitalist Progress Note ---
Date of Service February 05, 2022 Assessment & Plan (1) Acute renal failure: Plan: - Baseline CKD Stage II with CrCl ~78. - Cr of 4.2 -> 2.69 on 02/05. Non-oliguric KUN, suspected prerenal. - IVFs stopped on 02/02. - Beyer placed on 01/31 for monitoring of UOP; can discontinue tomorrow if tolerates voiding trial. - Nephrology consulted and appreciate recommendations. - GUEVARA soni for orthostasis. (2) Infection of total left knee replacement: Plan: - S/p explantation and antibiotic spacer on 01/[address] Blake. - Orthopedics consulted - No concerns at this time. - Given KUN on cefepime, ID recommended transition to ertapenem IV daily (renal dosing) with end date of 02/14/2022. (3) Fall: Plan: - With possible syncope and confusion. - Orthostatic on 02/03, trial GUEVARA celestin. - PT/OT while admitted with recommendations for acute rehab on discharge. Patient amenable to plan. (4) Diastolic heart failure: Plan: - Hx diastolic CHF with Echo 07/2021 with EF 60-65% with Grade 1 diastolic dysfunction. - Continue home metoprolol. - Hold lisinopril for KUN. - Holding Lasix as patient is euvolemic at this time. Low salt diet. (5) Uncontrolled type 2 diabetes mellitus with diabetic neuropathy, with long- term current use of insulin: Plan: - A1c is 10.5%. - Continue long-acting insulin glargine 18 units SQ HS (reduced multiple times for AM hypoglycemia) with sliding scale coverage. - Continued DM2 education while admitted. (6) Anemia: Plan: - Baseline hgb ~11 - 12. Stable at 10.2 last several days. No signs of acute bleeding. - Anemia labs suggest anemia of chronic disease. - Daily CBC. (7) Hypertension: Plan: - BP 140s/70s. - Continue metoprolol; hold lisinopril as above. (8) Depression: Plan: - Was on bupropion on last discharge; not on meds now. (9) Sleep apnea: Plan: - Patient will be continued on CPAP at 12 cm H2O. (10) DVT prophylaxis: Plan: - Heparin 5,000 units SQ q12h - FULL CODE - low salt, DM2 diet - Med/Surg status Admission and Anticipated Discharge Date Admission Date: January 30, 2022 Subjective Patient without acute events overnight. No fevers or notable vital sign abnormalities. This morning patient is in poor mood due to not liking the food, but otherwise feels well. He denies pain in his LLE. He also denies chest pain, SOB, nausea/vomiting, diarrhea, fevers. Review of Systems Review of Systems: All systems reviewed & are unremarkable except as noted in Subjective Physical Exam Constitutional: WD/WN, vitals as above Eyes: EOM intact bilaterally; no conjunctival abnormality ENMT: external ear and nose normal, oropharynx normal Neck: trachea midline, no thyromegaly normal visual inspection Respiratory: normal respiratory effort, lungs clear to auscultation no respiratory distress Cardiovascular: RRR, no murmur, no edema Gastrointestinal (Abdomen): Inspection/Auscultation: abdomen normal to inspection; abdomen not distended Skin: no rashes, warm and dry left knee TKA surgical site with masoud in place, no surrounding erythema, no purulent drainage, no open wound Neurologic: moves all extremities and awake; no focal motor deficits Psychiatric: Orientation: alert and oriented x 3 Affect: + irritable affect Results & Data Results & Data ([facility]) Vital Signs (Past 12 Hours) Vital Signs Temp Pulse Resp BP Pulse Ox O2 Del Method 02/05/22 07:32 37.1 C 88 17 160/74 H 96 Room Air PG Care Time/CCT Total # of Minutes Spent Total Time Spent with Patient: Total time spent is greater than 50% in coordination of care (as documented) at patient's floor/unit and/or counseling patient: Coding Level of Care Code 20796 Subseq Hosp Care Lvl 3 Diagnoses Acute renal failure N17.9 Infection of total left knee replacement T84.54XA Fall W19.XXXA Diastolic heart failure I50.30 Uncontrolled type 2 diabetes mellitus with diabetic neuropathy, with long-term current use of insulin E11.40; E11.65; Z79.4 Anemia D64.9 Hypertension I10 Depression F32.9 Sleep apnea G47.30 DVT prophylaxis Z29.9
[2022-02-05 08:30] LABS: Hematocrit (blood only) 29.9 % (40.1-51.0); Hemoglobin 10.2 g/dl (14.0-18.0); Mean Corpuscular Hemoglobin 29.2 pg (25.0-34.0); Mean Corpuscular Hgb Conc 34.1 g/dL (32.0-36.0); Mean Corpuscular Volume 85.7 fL (80.0-100.0); Mean Platelet Volume 11.1 fL (9.4-12.4); Platelet Count 292 K/uL (130-400); RDW Coefficient of Variation 14.2 % (11.5-14.5); RDW Standard Deviation 44.4 fL (36.4-46.3); Red Blood Count 3.49 M/uL (4.63-6.08); White Blood Count 11.47 K/ul (4.8-10.8)
--- NOTE | 2022-02-05 08:48 | Nephrology Progress Note ---
Date of Service February 05, 2022 Assessment & Plan (1) Acute renal failure: Plan: * Non-oliguric KUN due to dehydration in the setting of ACEi therapy. Urine sediment was negative for cellular casts. Urinary retention identified at the time of admission. Beyer catheter remains in place * Continue to hold lisinopril and metformin * Kidney function is gradually improving w/ conservative management. Cr peak 4.6, baseline Cr 1.2. Volume status and electrolyte balance remain acceptable * Cefepime stopped due to concerns of neurologic side effects in the setting of KUN * Encourage oral hydration, monitor PRP (2) Acute metabolic encephalopathy: Plan: * Etiology unclear. Possible cefepime related. Significant improvement (3) Infection of total left knee replacement: Plan: * ID consult reviewed. Abx therapy switched to Ertapenem Admission and Anticipated Discharge Date Admission Date: January 30, 2022 Subjective Mr. Berger was evaluated in his hospital room this morning. He Beyer catheter remains in place draining clear, yellow urine. Review of Systems Constitutional: no fever Eyes: no problem reported Ear, Nose, Mouth, Throat: no problem reported Respiratory: no cough and no dyspnea Cardiovascular: no chest pain Gastrointestinal: no abdominal pain, no nausea and no vomiting Neurologic: no confusion Physical Exam Constitutional: not in distress Eyes: PERRL, conjunctivae normal, anicteric sclerae ENMT: external ear and nose normal, oropharynx normal Neck: trachea midline, no thyromegaly Respiratory: normal respiratory effort, lungs clear to auscultation Cardiovascular: RRR, no murmur, no edema Gastrointestinal (Abdomen): normal bowel sounds, soft, nontender, no hep atosplenomegaly Neurologic: awake; not confused Results & Data ([facility]) Vital Signs (Past 12 Hours) Vital Signs Temp Pulse Resp BP Pulse Ox O2 Del Method 02/05/22 07:32 37.1 C 88 17 160/74 H 96 Room Air Laboratory Results Laboratory Tests 02/05/22 02/05/22 08:11 08:11 WBC 11.47 H Hgb 10.2 L Hct 29.9 L Plt Count 292 Sodium 137 Potassium 3.4 L Chloride 102 Carbon Dioxide 26 BUN 36 H Creatinine 2.69 H D Glucose 170 H PG Care Time/CCT Total # of Minutes Spent Total Time Spent with Patient: Total time spent is greater than 50% in coordination of care (as documented) at patient's floor/unit and/or counseling patient: Coding Level of Care Code 00471 Subseq Hosp Care Lvl 3 Diagnoses Acute renal failure N17.9 Acute metabolic encephalopathy G93.41 Infection of total left knee replacement T84.54XA
[2022-02-05 09:06] LABS: BUN Creatinine Ratio 13.4 (10-20); Calcium 8.8 mg/dl (8.5-10.1); Creatinine Clr Calc Pharmacy 34.7 ml/min; Est GFR (African American) 28.9 ml/min; Potassium 3.4 mmol/L (3.5-5.1)
[2022-02-05] MEDS: INSULIN ASPART PER UNIT SC SCH ×4 (09:06→22:12)
[2022-02-05] MEDS: HEPARIN SOD 5,000 UNIT/0.5 ML VIAL SQ SCH ×2 (09:06→22:06)
[2022-02-05] MEDS: METOPROLOL TARTRATE 50 MG TAB PO SCH ×2 (09:07→22:06)
[2022-02-05] MEDS: ERTAPENEM SODIUM 1,000 MG in SYRINGE 0 ML IV SCH (09:07)
[2022-02-05] MEDS: PANTOprazole 40 MG TAB PO SCH (09:07)
[2022-02-05] MEDS: LANTUS PER UNIT CHARGE SQ SCH (22:13)
[2022-02-06] MEDS: ERTAPENEM SODIUM 1,000 MG in SYRINGE 0 ML IV SCH (08:26)
[2022-02-06] MEDS: PANTOprazole 40 MG TAB PO SCH (08:26)
[2022-02-06] MEDS: HEPARIN SOD 5,000 UNIT/0.5 ML VIAL SQ SCH ×2 (08:26→20:35)
[2022-02-06] MEDS: METOPROLOL TARTRATE 50 MG TAB PO SCH ×2 (08:26→20:35)
--- NOTE | 2022-02-06 08:26 | Hospitalist Progress Note ---
Date of Service February 06, 2022 Assessment & Plan (1) Acute renal failure: Plan: - Baseline CKD Stage II with CrCl ~78. - Cr of 4.2 -> 2.25 on 02/06. Non-oliguric KUN, suspect prerenal. - IVFs stopped on 02/02. - Beyer placed on 01/31 for monitoring of UOP; can discontinue if tolerates voiding trial. - Nephrology consulted and appreciate recommendations; daily renal panel to monitor renal function. - GUEVARA soni for orthostasis. (2) Infection of total left knee replacement: Plan: - S/p explantation and antibiotic spacer on 01/[address] Blake. - Orthopedics consulted - No concerns at this time. - Given KUN on cefepime, ID recommended transition to ertapenem IV daily (renal dosing) with end date of 02/14/2022. (3) Fall: Plan: - With possible syncope and confusion. - Orthostatic on 02/03, trial GUEVARA celestin. - PT/OT while admitted with recommendations for acute rehab on discharge. Patient was resistant to plan, but with discussion was amenable. (4) Diastolic heart failure: Plan: - Hx diastolic CHF with Echo 07/2021 with EF 60-65% with Grade 1 diastolic dysfunction. - Continue home metoprolol. - Hold lisinopril for KUN. - Holding Lasix as patient is euvolemic at this time. Low salt diet. (5) Uncontrolled type 2 diabetes mellitus with diabetic neuropathy, with long- term current use of insulin: Plan: - A1c is 10.5%. - Continue long-acting insulin glargine 18 units SQ HS (reduced multiple times for AM hypoglycemia) with sliding scale coverage. - Continued DM2 education while admitted. (6) Anemia: Plan: - Baseline Hgb ~11 - 12. No signs of acute bleeding. - Anemia labs suggest anemia of chronic disease. - Hgb stable for several days. (7) Hypertension: Plan: - BP 140s/70s. - Continue metoprolol; hold lisinopril as above. (8) Depression: Plan: - Was on bupropion on last discharge; not on meds now. (9) Sleep apnea: Plan: - Patient will be continued on CPAP at 12 cm H2O. (10) Hypokalemia: Plan: - K 3.3 today. - Start KCl 40meq daily. Plan - Heparin 5,000 units SQ q12h - FULL CODE - low salt, DM2 diet - Med/Surg status Admission and Anticipated Discharge Date Admission Date: January 30, 2022 Subjective No events overnight. Patient is looking forward to leaving hospital. He initially refused AM blood draw however was convinced by Nephrology. He complains of discomfort lying in bed, otherwise no complaints (no chest pain, abdominal pain, SOB, nausea, diarrhea). Review of Systems Review of Systems: All systems reviewed & are unremarkable except as noted in Subjective Physical Exam Constitutional: WD/WN, vitals as above Eyes: EOM intact bilaterally; no conjunctival abnormality ENMT: external ear and nose normal, oropharynx normal Neck: normal visual inspection Respiratory: normal respiratory effort, lungs clear to auscultation no respiratory distress Cardiovascular: RRR, no murmur, no edema Gastrointestinal (Abdomen): Inspection/Auscultation: abdomen normal to inspection; abdomen not distended Skin: no rashes, warm and dry left knee TKA surgical site with masoud in place, no surrounding erythema, no purulent drainage, no open wound Neurologic: moves all extremities and awake; no focal motor deficits Psychiatric: Orientation: alert and oriented x 3 Affect: + irritable affect Results & Data Results & Data ([facility]) Vital Signs (Past 12 Hours) Vital Signs Temp Pulse Resp BP Pulse Ox O2 Del Method 02/06/22 07:37 36.8 C 93 H 16 134/77 96 Room Air 02/05/22 23:30 Room Air 02/05/22 20:38 37.3 C 95 H 20 147/74 H 94 Room Air PG Care Time/CCT Total # of Minutes Spent Total Time Spent with Patient: Total time spent is greater than 50% in coordination of care (as documented) at patient's floor/unit and/or counseling patient: Coding Level of Care Code 15276 Subseq Hosp Care Lvl 3 Diagnoses Acute renal failure N17.9 Infection of total left knee replacement T84.54XA Fall W19.XXXA Diastolic heart failure I50.30 Uncontrolled type 2 diabetes mellitus with diabetic neuropathy, with long-term current use of insulin E11.40; E11.65; Z79.4 Anemia D64.9 Hypertension I10 Depression F32.9 Sleep apnea G47.30 Hypokalemia E87.6
--- NOTE | 2022-02-06 08:50 | Nephrology Progress Note ---
Date of Service February 06, 2022 Assessment & Plan (1) Acute renal failure: Plan: * Non-oliguric KUN due to dehydration in the setting of ACEi therapy. Urine sediment was negative for cellular casts * Continue to hold lisinopril and metformin * Kidney function had been gradually improving w/ conservative management. Cr peak 4.6, baseline Cr 1.2 * Encouraged patient to allow am blood draw * Encourage oral hydration, monitor PRP (2) Acute metabolic encephalopathy: Plan: * Resolved (3) Infection of total left knee replacement: Plan: * Remains on Ertapenem therapy Admission and Anticipated Discharge Date Admission Date: January 30, 2022 Subjective Mr. Berger was evaluated in his hospital room this morning. He expressed frustration at remaining hospitalized. He wants to return home. He declined his morning blood draw Review of Systems Constitutional: no fever Eyes: no problem reported Ear, Nose, Mouth, Throat: no problem reported Respiratory: no cough and no dyspnea Cardiovascular: no chest pain Gastrointestinal: no abdominal pain, no nausea and no vomiting Neurologic: no confusion Physical Exam Constitutional: not in distress Eyes: PERRL, conjunctivae normal, anicteric sclerae ENMT: external ear and nose normal, oropharynx normal Neck: trachea midline, no thyromegaly Respiratory: normal respiratory effort, lungs clear to auscultation Cardiovascular: RRR, no murmur, no edema Gastrointestinal (Abdomen): normal bowel sounds, soft, nontender, no hepatosplenomegaly Neurologic: awake; not confused Results & Data ([facility]) Vital Signs (Past 12 Hours) Vital Signs Temp Pulse Resp BP Pulse Ox O2 Del Method 02/06/22 07:37 36.8 C 93 H 16 134/77 96 Room Air 02/05/22 23:30 Room Air PG Care Time/CCT Total # of Minutes Spent Total Time Spent with Patient: Total time spent is greater than 50% in coordination of care (as documented) at patient's floor/unit and/or counseling patient: Coding Level of Care Code 82211 Subseq Hosp Care Lvl 3 Diagnoses Acute renal failure N17.9 Acute metabolic encephalopathy G93.41 Infection of total left knee replacement T84.54XA
[2022-02-06] MEDS: INSULIN ASPART PER UNIT SC SCH ×4 (09:28→20:54)
[2022-02-06 10:08] LABS: BUN Creatinine Ratio 15.6 (10-20); Calcium 9.1 mg/dl (8.5-10.1); Creatinine Clr Calc Pharmacy 41.5 ml/min; Est GFR (African American) 35.9 ml/min; Potassium 3.3 mmol/L (3.5-5.1)
[2022-02-06] MEDS: POTASSIUM CHLORIDE CRTAB 20 MEQ TABCR PO SCH (13:13)
[2022-02-06] MEDS: MELATONIN 3 MG TAB PO PRN (20:54)
[2022-02-06] MEDS: LANTUS PER UNIT CHARGE SQ SCH (20:54)
[2022-02-07] MEDS: POTASSIUM CHLORIDE CRTAB 20 MEQ TABCR PO SCH (08:27)
[2022-02-07] MEDS: HEPARIN SOD 5,000 UNIT/0.5 ML VIAL SQ SCH ×2 (08:28→21:15)
[2022-02-07] MEDS: PANTOprazole 40 MG TAB PO SCH (08:28)
[2022-02-07] MEDS: METOPROLOL TARTRATE 50 MG TAB PO SCH ×2 (08:28→21:17)
[2022-02-07 08:32] LABS: BUN Creatinine Ratio 17.8 (10-20); Calcium 9.1 mg/dl (8.5-10.1); Creatinine Clr Calc Pharmacy 42.6 ml/min; Est GFR (African American) 37.1 ml/min; Potassium 3.7 mmol/L (3.5-5.1)
--- NOTE | 2022-02-07 08:38 | Nephrology Progress Note ---
Date of Service February 07, 2022 Assessment & Plan (1) Acute renal failure: Plan: * Non-oliguric KUN due to dehydration in the setting of ACEi therapy. Urine sediment was negative for cellular casts * Continue to hold lisinopril and metformin * Kidney function had been gradually improving w/ conservative management. Cr peak 4.6, baseline Cr 1.2 * Encourage oral hydration, monitor PRP * Explained this morning that kidney function is improving but may not be complete. Will require continued monitoring (2) Acute metabolic encephalopathy: Plan: * Resolved (3) Infection of total left knee replacement: Plan: * Remains on Ertapenem therapy Admission and Anticipated Discharge Date Admission Date: January 30, 2022 Subjective Mr. Berger was evaluated in his hospital room this morning. He denied fever or flank discomfort. He is voiding easily without any hesitancy Review of Systems Constitutional: no fever Eyes: no problem reported Ear, Nose, Mouth, Throat: no problem reported Respiratory: no cough and no dyspnea Cardiovascular: no chest pain Gastrointestinal: no abdominal pain, no nausea and no vomiting Neurologic: no confusion Physical Exam Constitutional: not in distress Eyes: PERRL, conjunctivae normal, anicteric sclerae ENMT: external ear and nose normal, oropharynx normal Neck: trachea midline, no thyromegaly Respiratory: normal respiratory effort, lungs clear to auscultation Cardiovascular: RRR, no murmur, no edema Gastrointestinal (Abdomen): normal bowel sounds, soft, nontender, no hepatosplenomegaly Neurologic: awake; not confused Results & Data ([facility]) Vital Signs (Past 12 Hours) Vital Signs Temp Pulse Resp BP Pulse Ox O2 Del Method 02/07/22 07:09 36.8 C 85 16 150/79 H 98 Room Air Laboratory Results Laboratory Tests 02/07/22 07:30 Sodium 138 Potassium 3.7 Chloride 103 Carbon Dioxide 26 BUN 39 H Creatinine 2.19 H Glucose 168 H PG Care Time/CCT Total # of Minutes Spent Total Time Spent with Patient: Total time spent is greater than 50% in coordination of care (as documented) at patient's floor/unit and/or counseling patient: Coding Level of Care Code 13625 Subseq Hosp Care Lvl 3 Diagnoses Acute renal failure N17.9 Acute metabolic encephalopathy G93.41 Infection of total left knee replacement T84.54XA
--- NOTE | 2022-02-07 08:48 | Hospitalist Progress Note ---
Date of Service February 07, 2022 Assessment & Plan (1) Acute renal failure: Plan: - Baseline CKD Stage II with baseline creatinine ~1.2. - Cr of 4.2 -> 2.19 on 02/07. Non-oliguric KUN, suspect prerenal. - IVFs stopped on 02/02. Encourage PO fluid intake. - Beyer placed on 01/31 for monitoring of UOP; discontinued on 02/04. - Nephrology consulted and appreciate recommendations; daily renal panel to monitor renal function. - GUEVARA soni for orthostasis. (2) Infection of total left knee replacement: Plan: - S/p explantation and antibiotic spacer on 01/[address] Blake. - Orthopedics consulted - No concerns at this time. - Given KUN on cefepime, ID recommended transition to ertapenem IV daily (renal dosing) with end date of 02/14/2022. (3) Fall: Plan: - With possible syncope and confusion on admission suspected related to KUN. - Orthostatic on 02/03, continue GUEVARA celestin. - PT/OT while admitted with recommendations for acute rehab on discharge. (4) Diastolic heart failure: Plan: - Hx diastolic CHF with Echo 07/2021 with EF 60-65% with Grade 1 diastolic dysfunction. - Continue home metoprolol. - Hold lisinopril for KUN. - Holding Lasix as patient is euvolemic at this time. Low salt diet. (5) Uncontrolled type 2 diabetes mellitus with diabetic neuropathy, with long- term current use of insulin: Plan: - A1c is 10.5%. - Increase long-acting insulin glargine 22 units SQ HS (given BSGs >160 since 02/05) with sliding scale coverage. - Continued DM2 education while admitted. (6) Anemia: Plan: - Baseline Hgb ~11-12. No signs of acute bleeding. - Anemia labs suggest anemia of chronic disease. - Hgb stable this admission. (7) Hypertension: Plan: - BP 140s/70s. - Continue metoprolol; hold lisinopril as above. (8) Sleep apnea: Plan: - Continue CPAP at 12 cm H2O. (9) Hypokalemia: Plan: - Started KCl 40meq daily this admission. - K 3.7 today. Plan - Heparin 5,000 units SQ q12h - FULL CODE - low salt, DM2 diet - Med/Surg status Admission and Anticipated Discharge Date Admission Date: January 30, 2022 Subjective No events overnight. Patient is more comfortable and pleasant today. Asked for a hamburger because he enjoyed that the other day. Other than some mild left knee pain with moving into chair, no complaints (no chest pain, abdominal pain, SOB, nausea, diarrhea). He reports a history of intermittent urinary incontinence at home, for which he wears a Depends just in case. Review of Systems Review of Systems: All systems reviewed & are unremarkable except as noted in Subjective Physical Exam Constitutional: WD/WN, vitals as above Eyes: EOM intact bilaterally; no conjunctival abnormality ENMT: external ear and nose normal, oropharynx normal Neck: trachea midline, no thyromegaly normal visual inspection Respiratory: normal respiratory effort, lungs clear to auscultation no respiratory distress Cardiovascular: RRR, no murmur, no edema Gastrointestinal (Abdomen): Inspection/Auscultation: abdomen normal to inspection; abdomen not distended Skin: no rashes, warm and dry Neurologic: moves all extremities and awake; no focal motor deficits Psychiatric: Orientation: alert and oriented x 3 Affect: euthymic affect Results & Data Results & Data ([facility]) Vital Signs (Past 12 Hours) Vital Signs Temp Pulse Resp BP Pulse Ox O2 Del Method 02/07/22 07:09 36.8 C 85 16 150/79 H 98 Room Air PG Care Time/CCT Total # of Minutes Spent Total Time Spent with Patient: Total time spent is greater than 50% in coordination of care (as documented) at patient's floor/unit and/or counseling patient: Coding Level of Care Code 98164 Subseq Hosp Care Lvl 3 Diagnoses Acute renal failure N17.9 Infection of total left knee replacement T84.54XA Fall W19.XXXA Diastolic heart failure I50.30 Uncontrolled type 2 diabetes mellitus with diabetic neuropathy, with long-term current use of insulin E11.40; E11.65; Z79.4 Anemia D64.9 Hypertension I10 Sleep apnea G47.30 Hypokalemia E87.6
[2022-02-07] MEDS: INSULIN ASPART PER UNIT SC SCH ×4 (08:51→21:15)
[2022-02-07] MEDS: ERTAPENEM SODIUM 1,000 MG in SYRINGE 0 ML IV SCH (10:54)
[2022-02-07] MEDS: ACETAMINOPHEN 325 MG TAB PO PRN (16:19)
[2022-02-07] MEDS: LANTUS PER UNIT CHARGE SQ SCH (21:16)
[2022-02-07] MEDS: MELATONIN 3 MG TAB PO PRN (21:17)
[2022-02-08 07:15] LABS: Hematocrit (blood only) 31.7 % (40.1-51.0); Hemoglobin 10.6 g/dl (14.0-18.0); Mean Corpuscular Hemoglobin 28.5 pg (25.0-34.0); Mean Corpuscular Hgb Conc 33.4 g/dL (32.0-36.0); Mean Corpuscular Volume 85.2 fL (80.0-100.0); Mean Platelet Volume 10.8 fL (9.4-12.4); Platelet Count 411 K/uL (130-400); RDW Coefficient of Variation 13.6 % (11.5-14.5); RDW Standard Deviation 42.6 fL (36.4-46.3); Red Blood Count 3.72 M/uL (4.63-6.08); White Blood Count 8.81 K/ul (4.8-10.8)
[2022-02-08 07:47] LABS: BUN Creatinine Ratio 20.1 (10-20); Calcium 9.1 mg/dl (8.5-10.1); Creatinine Clr Calc Pharmacy 49.4 ml/min; Est GFR (African American) 44.3 ml/min; Est GFR (Non-African American) 38.3 ml/min; Potassium 3.8 mmol/L (3.5-5.1)
--- NOTE | 2022-02-08 08:50 | Nephrology Progress Note ---
Date of Service February 08, 2022 Assessment & Plan (1) Acute renal failure: Plan: * Non-oliguric KUN due to dehydration in the setting of ACEi therapy. Urine sediment was negative for cellular casts * Continue to hold lisinopril and metformin * Kidney function had been gradually improving w/ conservative management. Cr peak 4.6, baseline Cr 1.2 * Encourage oral hydration, monitor PRP * Explained this morning that kidney function is improving but may not be complete * Patient is nearing baseline function. No further Nephrology intervention needed. Patient may follow up w/ PCP after discharge from the hospital. Will sign off. Please call if further assistance is needed (2) Acute metabolic encephalopathy: Plan: * Resolved (3) Infection of total left knee replacement: Plan: * Remains on Ertapenem therapy Admission and Anticipated Discharge Date Admission Date: January 30, 2022 Subjective Mr. Berger was evaluated in his hospital room this morning. He was in much better spirits. He denied fever or flank discomfort. Mr. Berger reports that he is voiding easily without any hesitancy. He is hopeful to return home soon. Review of Systems Constitutional: no fever Eyes: no problem reported Ear, Nose, Mouth, Throat: no problem reported Respiratory: no cough and no dyspnea Cardiovascular: no chest pain Gastrointestinal: no abdominal pain, no nausea and no vomiting Neurologic: no confusion Physical Exam Constitutional: not in distress Eyes: PERRL, conjunctivae normal, anicteric sclerae ENMT: external ear and nose normal, oropharynx normal Neck: trachea midline, no thyromegaly Respiratory: normal respiratory effort, lungs clear to auscultation Cardiovascular: RRR, no murmur, no edema Gastrointestinal (Abdomen): normal bowel sounds, soft, nontender, no hepatosplenomegaly Neurologic: awake; not confused Results & Data ([facility]) Vital Signs (Past 12 Hours) Vital Signs Temp Pulse Resp BP Pulse Ox O2 Del Method 02/07/22 21:09 37.0 C 82 16 133/76 95 Room Air Laboratory Results Laboratory Tests 02/08/22 02/08/22 06:32 06:32 WBC 8.81 Hgb 10.6 L Hct 31.7 L Plt Count 411 H Sodium 137 Potassium 3.8 Chloride 104 Carbon Dioxide 24 BUN 38 H Creatinine 1.89 H D Glucose 149 H PG Care Time/CCT Total # of Minutes Spent Total Time Spent with Patient: Total time spent is greater than 50% in coordination of care (as documented) at patient's floor/unit and/or counseling patient: Coding Level of Care Code 02116 Subseq Hosp Care Lvl 3 Diagnoses Acute renal failure N17.9 Acute metabolic encephalopathy G93.41 Infection of total left knee replacement T84.54XA
[2022-02-08] MEDS: INSULIN ASPART PER UNIT SC SCH ×4 (09:04→21:13)
[2022-02-08] MEDS: POTASSIUM CHLORIDE CRTAB 20 MEQ TABCR PO SCH (09:17)
[2022-02-08] MEDS: HEPARIN SOD 5,000 UNIT/0.5 ML VIAL SQ SCH ×2 (09:17→20:35)
[2022-02-08] MEDS: ERTAPENEM SODIUM 1,000 MG in SYRINGE 0 ML IV SCH (09:17)
[2022-02-08] MEDS: PANTOprazole 40 MG TAB PO SCH (09:17)
[2022-02-08] MEDS: METOPROLOL TARTRATE 50 MG TAB PO SCH ×2 (09:17→20:35)
--- NOTE | 2022-02-08 14:32 | Hospitalist Progress Note ---
Date of Service February 08, 2022 Assessment & Plan (1) Acute renal failure: Plan: - Baseline CKD Stage II with baseline creatinine ~1.2. - Cr of 4.2 -> 1.89 on 02/08. Non-oliguric KUN, suspect prerenal. - IVFs stopped on 02/02. Encourage PO fluid intake. - Beyer placed on 01/31 for monitoring of UOP; discontinued on 02/04. - Nephrology consulted and appreciate recommendations; daily renal panel to monitor renal function. - GUEVARA soni for orthostasis. (2) Infection of total left knee replacement: Plan: - S/p explantation and antibiotic spacer on 01/[address] Blake. - Orthopedics consulted - No concerns at this time. - Given KUN on cefepime, ID recommended transition to ertapenem IV daily (renal dosing) with end date of 02/14/2022. No purulent drainage or erythema over surgical site at this time. (3) Fall: Plan: - With possible syncope and confusion on admission suspected related to KUN. - Orthostatic on 02/03, continue GUEVARA celestin. - PT/OT while admitted with recommendations for acute rehab on discharge. Hopeful for discharge in the next 1 to 2 days as patient's renal function improves. (4) Diastolic heart failure: Plan: - Hx diastolic CHF with Echo 07/2021 with EF 60-65% with Grade 1 diastolic dysfunction. - Continue home metoprolol. - Hold lisinopril for KUN. - Holding Lasix as patient is euvolemic at this time. Low salt diet. (5) Uncontrolled type 2 diabetes mellitus with diabetic neuropathy, with long- term current use of insulin: Plan: - A1c is 10.5%. - Continue long-acting insulin glargine 22 units SQ HS (given BSGs >160 since 02/05) with sliding scale coverage. Correction factor adjusted given elevated glucoses today, though I suspect these are due to lunch brought from outside hospital. - Continued DM2 education while admitted. (6) Anemia: Plan: - Baseline Hgb ~11-12. No signs of acute bleeding. Hemoglobin 10.6. - Anemia labs suggest anemia of chronic disease. - Hgb stable this admission. (7) Hypertension: Plan: - BP 140s/70s. - Continue metoprolol; hold lisinopril as above. (8) Sleep apnea: Plan: - Continue CPAP at 12 cm H2O. (9) Hypokalemia: Plan: - Started KCl 40meq daily this admission. - K 3.8 today. Plan - Heparin 5,000 units SQ q12h - FULL CODE - low salt, DM2 diet - Med/Surg status Admission and Anticipated Discharge Date Admission Date: January 30, 2022 Subjective Patient without any acute events overnight. Was somewhat irritable this morning however this improved with some breakfast, and patient was pleasant on my interview today. Patient denies chest pain, shortness of breath, nausea, vomiting, diarrhea, difficulty with urination. Review of Systems Review of Systems: All systems reviewed & are unremarkable except as noted in Subjective Physical Exam Constitutional: WD/WN, vitals as above Eyes: EOM intact bilaterally; no conjunctival abnormality ENMT: external ear and nose normal, oropharynx normal Neck: trachea midline, no thyromegaly normal visual inspection Respiratory: normal respiratory effort, lungs clear to auscultation no respiratory distress Cardiovascular: RRR, no murmur, no edema Gastrointestinal (Abdomen): Inspection/Auscultation: abdomen normal to inspection; abdomen not distended Skin: no rashes, warm and dry No erythema or purulent drainage from left knee surgical site Neurologic: moves all extremities and awake; no focal motor deficits Psychiatric: Orientation: alert and oriented x 3 Affect: euthymic affect PG Care Time/CCT Total # of Minutes Spent Total Time Spent with Patient: Total time spent is greater than 50% in coordination of care (as documented) at patient's floor/unit and/or counseling patient: Coding Level of Care Code 95576 Subseq Hosp Care Lvl 3 Diagnoses Acute renal failure N17.9 Infection of total left knee replacement T84.54XA Fall W19.XXXA Diastolic heart failure I50.30 Uncontrolled type 2 diabetes mellitus with diabetic neuropathy, with long-term current use of insulin E11.40; E11.65; Z79.4 Anemia D64.9 Hypertension I10 Sleep apnea G47.30 Hypokalemia E87.6
[2022-02-08] MEDS: GABAPENTIN 600 MG TAB PO SCH (20:35)
[2022-02-08] MEDS: LANTUS PER UNIT CHARGE SQ SCH (21:13)
[2022-02-09] MEDS: HEPARIN SOD 5,000 UNIT/0.5 ML VIAL SQ SCH (08:30)
[2022-02-09] MEDS: METOPROLOL TARTRATE 50 MG TAB PO SCH (08:30)
[2022-02-09] MEDS: PANTOprazole 40 MG TAB PO SCH (08:31)
[2022-02-09] MEDS: POTASSIUM CHLORIDE CRTAB 20 MEQ TABCR PO SCH (08:31)
[2022-02-09] MEDS: GABAPENTIN 600 MG TAB PO SCH (08:31)
[2022-02-09 08:38] LABS: BUN Creatinine Ratio 18.4 (10-20); Calcium 9.3 mg/dl (8.5-10.1); Creatinine Clr Calc Pharmacy 53.6 ml/min; Est GFR (Non-African American) 42.3 ml/min; Potassium 3.9 mmol/L (3.5-5.1)
[2022-02-09] MEDS: INSULIN ASPART PER UNIT SC SCH (08:50)
--- NOTE | 2022-02-09 09:27 | Discharge Summary ---
Discharge Summary Date of Service February 09, 2022 Admission HPI Per Admitting Provider 56yo M w/ hx of DM and left prosthetic knee infection presenting with acute renal failure and fall/syncope at home. Patient is fairly confused and provides contradictory history. Per , she believes he was likely sitting on the bed, slid off, and struck a night stand and broke his glasses. He is not clear and says he was standing, but then also says he was sitting on the bed. He cannot recall exactly. No known prodrome symptoms, but again, he is not sure. His notes that he is confused and "not with [her]" over the last day and half or so. She also notes that he has not been eating/drinking as much at home. Admission Exam Per Admitting Provider Constitutional: WD/WN, vitals as above Eyes: EOM intact bilaterally; no conjunctival abnormality ENMT: external ear and nose normal, oropharynx normal Neck: trachea midline, no thyromegaly normal visual inspection Respiratory: normal respiratory effort, lungs clear to auscultation no respiratory distress Cardiovascular: RRR, no murmur, no edema Gastrointestinal (Abdomen): Inspection/Auscultation: abdomen normal to inspection; abdomen not distended Musculoskeletal: Left knee in brace with suture line appearing fairly well healed apart from one small area. Skin: no rashes, warm and dry Neurologic: moves all extremities and awake Psychiatric: Orientation: alert, oriented to person and cooperative Principal Dx & Hospital Course #1 = Principal Diagnosis (1) Acute renal failure: - Baseline CKD Stage II with baseline creatinine ~1.2. - Cr of 4.2 -> 1.74 on 02/09, day of discharge. Non-oliguric KUN, suspect prerenal. - IVFs stopped on 02/02. Encourage PO fluid intake, with repeat BMP over the weekend at [facility]. - Beyer placed on 01/31 for monitoring of UOP; discontinued on 02/04. - Nephrology consulted and appreciate recommendations; daily renal panel to monitor renal function. - GUEVARA soni for orthostasis. (2) Infection of total left knee replacement: - S/p explantation and antibiotic spacer on 01/[address] Blake. - Orthopedics consulted - No concerns at this time. - Given KUN on cefepime, ID recommended transition to ertapenem IV daily (renal dosing) with end date of 02/14/2022. - No purulent drainage or erythema over surgical site at this time. Patient will complete antibiotics at [facility]. (3) Fall: - With possible syncope and confusion on admission suspected related to KUN. - Orthostatic on 02/03, continue GUEVARA kerry. - [facility] (4) Diastolic heart failure: - Hx diastolic CHF with Echo 07/2021 with EF 60-65% with Grade 1 diastolic dysfu nction. - Continue home metoprolol. - Hold lisinopril for KUN. - Holding Lasix as patient is euvolemic at this time. Long discussion had regarding low-salt diet. Can be resumed by [facility] if deemed necessary. (5) Uncontrolled type 2 diabetes mellitus with diabetic neuropathy, with long- term current use of insulin: - A1c is 10.5%. - Continue long-acting insulin glargine 22 units SQ HS (given BSGs >160 since 02/05) with sliding scale coverage. - Continued DM2 education while at [facility]. - Follow up with PCP regarding other agents to add for DM2 control. (6) Anemia: - Baseline Hgb ~11-12. No signs of acute bleeding. Hemoglobin 10.6 on 02/08. - Anemia labs suggest anemia of chronic disease. (7) Hypertension: - BP 140s/70s. - Continue metoprolol; hold lisinopril as above. (8) Sleep apnea: - Continue CPAP at 12 cm H2O. (9) Hypokalemia: - Started KCl 40meq daily this admission. - K normal on day of discharge. Discharge Exam Constitutional WD/WN, vitals as above Respiratory normal respiratory effort, lungs clear to auscultation no respiratory distress Cardiovascular RRR, no murmur, no edema Gastrointestinal (Abdomen) Inspection/Auscultation: abdomen normal to inspection; abdomen not distended Skin no rashes, warm and dry Neurologic moves all extremities and awake; no focal motor deficits Psychiatric Orientation: alert and oriented x 3 Affect: euthymic affect Updated Medication List Medication Instructions Recorded Confirmed Type Unknown Antibiotic Iv 1 dose IV TID 01/30/22 History acetaminophen 500 mg tablet 500 - 1,000 mg PO Q8 PRN Pain 01/30/22 01/30/22 History (Tylenol Extra Strength) cyanocobalamin (vitamin B-12) 1,000 mcg PO DAILY 01/30/22 01/30/22 History 1,000 mcg tablet (Vitamin B-12) cyclobenzaprine 10 mg tablet 10 mg PO TID PRN Spasms 01/30/22 01/30/22 History gabapentin 600 mg tablet 600 mg PO AMHS 01/30/22 01/30/22 History insulin aspart U-100 100 unit/mL 6 unit subcut TIDWMEAL 01/30/22 01/30/22 History (3 mL) subcutaneous pen (Novolog Flexpen U-100 Insulin aspart) insulin glargine 100 unit/mL 28 unit subcut BID 01/30/22 01/30/22 History subcutaneous solution (Lantus U-100 Insulin) melatonin 3 mg tablet 6 mg PO HS PRN Sleep 01/30/22 01/30/22 History metformin 1,000 mg tablet 1,000 mg PO BID 01/30/22 01/30/22 History metoprolol tartrate 100 mg tablet 50 mg PO AMHS 01/30/22 01/30/22 History naloxone 4 mg/actuation nasal 4 mg intranasal DAILY PRN opiod od 01/30/22 01/30/22 History spray (Narcan) oxycodone 5 mg tablet 5 mg PO Q6 PRN .moderate pain 01/30/22 01/30/22 History pantoprazole 40 mg tablet,delayed 40 mg PO QAM 01/30/22 01/30/22 History release potassium chloride 20 mEq 40 meq PO QAM #60 tabs 02/09/22 Rx tablet,extended release(part/cryst) Hospital Stay Data Consultations 01/30/22 16:31 ED Decision to Admit Stat 01/30/22 18:26 Consult Infectious Diseases Routine Consult Nephrology Routine Consult Orthopedic Surgery Routine Diagnostic Imagining Performed 01/30/22 15:08 CT abd pelvis wo con Stat CT head/brain wo con Stat Discharge Instructions Given to Patient (Per Discharging Provider) Acute renal failure: - Baseline CKD Stage II with baseline creatinine ~1.2. - Cr of 4.2 -> 1.74 on 02/09. Non-oliguric KUN, suspect prerenal. - IVFs stopped on 02/02. Encourage PO fluid intake. - Beyer placed on 01/31 for monitoring of UOP; discontinued on 02/04. - Nephrology consulted and appreciate recommendations; daily renal panel to monitor renal function until back to baseline. - GUEVARA hose for orthostasis. - Follow up creatinine daily while at [facility]; anticipate continued improvement. Infection of total left knee replacement: - S/p explantation and antibiotic spacer on 01/[address] Blake. - Orthopedics consulted - No concerns at this time. - Given KUN on cefepime, ID recommended transition to ertapenem IV daily (renal dosing) with end date of 02/14/2022. No purulent drainage or erythema over surgical site at this time. Fall: - With possible syncope and confusion on admission suspected related to KUN. - Orthostatic on 02/03, but not since, continue GUEVARA hosiery. - [facility] for rehab. Diastolic heart failure: - Hx diastolic CHF with Echo 07/2021 with EF 60-65% with Grade 1 diastolic dysfunction. - Continue home metoprolol. - Holding lisinopril for KUN. - Holding Lasix as patient is euvolemic at this time. Low salt diet. Uncontrolled type 2 diabetes mellitus with diabetic neuropathy, with long-term current use of insulin: - A1c is 10.5%. - Continue long-acting insulin glargine 22 units SQ HS (given BSGs >160 since 02/05) with sliding scale coverage. Correction factor adjustments as need given elevated glucoses today, though I suspect these are due to lunch brought from outside hospital. Anemia: - Baseline Hgb ~11-12. No signs of acute bleeding. Hemoglobin 10.6. - Anemia labs suggest anemia of chronic disease. - Hgb stable this admission. Hypertension: - BP 140s/70s. - Continue metoprolol; hold lisinopril as above. Sleep apnea: - Continue CPAP at 12 cm H2O. Hypokalemia: - Started KCl 40meq daily this admission. Continue. Total Time Total Time Spent Total Time Spent (In Minutes): 40 minutes Coding Level of Care Code D/C DAY MANAGEMENT >30 MINS Diagnoses Acute renal failure N17.9 Infection of total left knee replacement T84.54XA Fall W19.XXXA Diastolic heart failure I50.30 Uncontrolled type 2 diabetes mellitus with diabetic neuropathy, with long-term current use of insulin E11.40; E11.65; Z79.4 Anemia D64.9 Hypertension I10 Sleep apnea G47.30 Hypokalemia E87.6
[2022-02-09] MEDS: ERTAPENEM SODIUM 1,000 MG in SYRINGE 0 ML IV SCH (10:53)
== END 2022-02-09 12:17 | DRG 682 ==
LOC: ED 12:49 → SUATTDRO 17:09 → 2W 17:09 → 3W 02-04 14:47

== ENCOUNTER 2022-11-12 00:23 | Observation (INO) ==
[2022-11-12] MEDS ORDERED: ONDANSETRON INJ 2 MG/ML 2 ML VIAL IV STA ×2 (00:45→03:21)
[2022-11-12] MEDS ORDERED: MoRPHine SULFATE 4 MG/ML 1 ML CARP\\VIAL IV STA ×2 (00:45→03:21)
[2022-11-12] MEDS ORDERED: SODIUM CHLORIDE 0.9% 500 ML IV STA (00:45)
--- NOTE | 2022-11-12 01:04 | Emergency Department Note ---
History of Present Illness General Chief complaint: Flank Pain Stated complaint: RIGHT SIDED PAIN UNDER RIB CAGE Time Seen by Provider: 11/12/22 00:38 History of Present Illness Maximum Pain Intensity: 5 This 57-year-old gentleman presents to the ER complaining of right-sided chest and abdominal pain for the past day. Patient fell 2 nights ago on this area but pain started last night. Patient denies bruising, dyspnea, vomiting, diarrhea. He still has his gallbladder. Home Medications Medication Instructions Recorded Confirmed Type acetaminophen 500 mg tablet 500 - 1,000 mg PO Q8 PRN Pain 01/30/22 11/12/22 History (Tylenol Extra Strength) cyanocobalamin (vitamin B-12) 1,000 mcg PO DAILY 01/30/22 11/12/22 History 1,000 mcg tablet (Vitamin B-12) gabapentin 600 mg tablet 600 mg PO AMHS 01/30/22 11/12/22 History insulin aspart U-100 100 unit/mL 6 unit subcut TIDWMEAL 01/30/22 11/12/22 His tory (3 mL) subcutaneous pen (Novolog FlexPen U-100 Insulin aspart) insulin glargine 100 unit/mL 28 unit subcut BID 01/30/22 11/12/22 History subcutaneous solution (Lantus U-100 Insulin) metformin 1,000 mg tablet 1,000 mg PO BID 01/30/22 11/12/22 History metoprolol tartrate 100 mg tablet See Rx Instructions .Route .COMPLEX 01/30/22 11/12/22 History pantoprazole 40 mg tablet,delayed 40 mg PO QAM 01/30/22 11/12/22 History release potassium chloride 20 mEq 40 meq PO QAM #60 tabs 02/09/22 11/12/22 Rx tablet,extended release(part/cryst) aspirin 81 mg tablet,delayed 81 mg PO DAILY 03/08/22 11/12/22 History release (Adult Aspirin Regimen) cholecalciferol (vitamin D3) 25 25 mcg PO DAILY 03/08/22 11/12/22 History mcg (1,000 unit) capsule furosemide 20 mg tablet 20 mg PO DAILY 11/12/22 11/12/22 History sacubitril 24 mg-valsartan 26 mg 1 tab PO BID 11/12/22 11/12/22 History tablet (Entresto) Allergies Allergy/AdvReac Type Severity Reaction Status Date / Time levofloxacin AdvReac Intermediate GI SYMPTOMS Verified 11/12/22 02:03 pneumococcal vaccine AdvReac Intermediate GI Verified 11/12/22 02:03 SYMPTOMS-OK IF MULTIPLE VACCINES GIVEN SEPARATELY tetanus toxoid, adsorbed AdvReac Intermediate TETANUS/DIPTHERIA/PERTUSSIS-GI Verified 11/12/22 02:03 UPSTE/BODY ACHES Past Med/Surg History Medical History Acute on chronic congestive heart failure Anxiety and depression Attention deficit disorder (ADD) Bulging lumbar disc Cardiac murmur FOLLOWS WITH DR. GREENWOOD CHF (congestive heart failure) Diabetic peripheral neuropathy associated with type 2 diabetes mellitus DM type 2 (diabetes mellitus, type 2) GERD (gastroesophageal reflux disease) History of amputation of right great toe History of anemia History of kidney stones HTN (hypertension) Hx MRSA infection 2018> resolved Hx of diabetic foot ulcer Hyperlipidemia Infection of prosthetic right knee joint Obesity Obstructive sleep apnea syndrome Osteoarthritis Sleep apnea CPAP Surgical History History of colonoscopy History of open reduction and internal fixation (ORIF) procedure RT HAND History of tooth extraction History of total left knee replacement History of wisdom tooth extraction S/P revision of total knee LEFT Family History Father Family history of diabetes mellitus Other No family history of adverse response to anesthesia No pertinent family history Social History Smoking Status: Never smoker Second Hand Exposure: No; Do You Dip or Chew Tobacco: No; Hx Alcohol Use: No Hx Substance Use: No Preferred Language: Greek Communication Ability: Impaired Visual Impairment: Limited Swing Ride Operator Required: No Beliefs That Will Affect Care: None marital status: Current Living Situation: Spouse current occupational status: employed current occupation: [employer] , 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 How many Children do You have: 2 Feels Safe at Home: Yes Diet: diabetic during the past year weight has: remained stable Assistive Devices: CPAP, Walker and Wheelchair Review of Systems A total of 10 systems reviewed and were otherwise negative Physical Exam Vital Signs Vital Signs - 24 hr 11/12/22 00:29 11/12/22 01:05 Temperature 36.9 C Temperature Source Temporal Artery Scan Pulse Rate 105 H Respiratory Rate 16 Respiratory Effort / Characteristics Non-Labored Spontaneous Respiratory Depth Normal Blood Pressure 136/75 Blood Pressure Mean 95 Pulse Oximetry 99 98 Oxygen Delivery Method Room Air Room Air Sepsis Recent Fever Within 48 Hours No Sepsis New/Unexplained Change in Mental Status N/A Sepsis Action Taken by Nursing No Action Required VITALS: Vitals are noted on the nurse's note and reviewed by myself. Vital signs stable. GENERAL: pleasant gentleman who appears in, in no acute distress, nondiaphoretic, well-developed well-nourished. SKIN: The skin was without rashes, erythema, or bruising. There is no tenting of the skin. Capillary reflex less than 2 seconds. HEAD: Normocephalic atraumatic. EARS: External auditory canals clear, EYES: Pupils equal round and reactive to light and accommodation. Conjunctivae without injection, sclerae without icterus. Extraocular movements intact. NOSE: Patent, turbinates without inflammation or discharge. MOUTH: Mucous membranes moist. Pharynx without erythema or exudate. Uvula midline. Airway patent. Tongue does not deviate. NECK: Supple without nuchal rigidity. No lymphadenopathy. No thyromegaly. Cervical spine is nontender. No JVD. HEART: Regular rate and rhythm LUNGS: Clear to auscultation bilaterally without wheezes, rales or rhonchi. No retractions or accessory muscle use. ABDOMEN: Positive bowel sounds x 4. Normal tympanic percussion. Soft, tender right upper quadrant, without masses or organomegaly. No guarding or rebound tenderness. No CVA tenderness MUSCULOSKELETAL: No muscle atrophy, erythema, noted. NEURO: Patient was alert and oriented to person place and time. Normal sensation to light and sharp touch. No focal neurological deficits. Course Administered Medications Discontinued Medications Sodium Chloride (Nss) 500 mls @ 999 mls/hr IV .Q31M STA Stop: 11/12/22 01:15 Last Infusion: 11/12/22 02:01 Dose: 0 mls/hr Documented By: Admin: 11/12/22 01:30 Dose: 999 mls/hr Documented By: MINNIE Sodium Chloride (Nss 1000ml) 1,000 mls @ 999 mls/hr IV .Q1H1M ONE Stop: 11/12/22 02:48 Last Infusion: 11/12/22 02:59 Dose: 0 mls/hr Documented By: Admin: 11/12/22 01:58 Dose: 999 mls/hr Documented By: MINNIE Ioversol (Ioversol 350 Mg 125ml Prefilled Syringe) 125 ml IV ONCE ONE Stop: 11/12/22 01:38 Last Admin: 11/12/22 01:37 Dose: 117 ml Documented By: JAYSON Morphine Sulfate (Morphine Sulfate 4 Mg/Ml 1 Ml Carp\Vial) 4 mg IV NOW STA Stop: 11/12/22 00:46 Last Admin: 11/12/22 01:28 Dose: 4 mg Documented By: MINNIE Ondansetron HCl (Ondansetron Inj 2 Mg/Ml 2 Ml Vial) 4 mg IV NOW STA Stop: 11/12/22 00:46 Last Admin: 11/12/22 01:29 Dose: 4 mg Documented By: MINNIE Medical Decision Making Medical Records Attestation: I reviewed the patient's medical records. Home Medications Current Medication List: was personally reviewed by me Laboratory Data Attestation: I reviewed the patient's lab results. 11/12/22 01:01 11/12/22 01:01 Lab Results 11/12/22 11/12/22 11/12/22 Range/Units 00:59 01:01 01:01 WBC 8.75 (4.8-10.8) K/ul RBC 4.02 L (4.70-6.10) M/uL Hgb 11.4 L (14.0-18.0) g/dl POC Hgb 11.9 L (14.0-18.0) g/dl Hct 33.6 L (42.0-52.0) % POC Hct 35 L (42-52) % MCV 83.6 (80.0-100.0) fL MCH 28.4 (25.0-34.0) pg MCHC 33.9 (32.0-36.0) g/dL RDW Std Deviation 42.2 (36.4-46.3) fL RDW Coeff of Monica 13.8 (11.5-14.5) % Plt Count 234 (130-400) K/uL MPV 11.4 (9.4-12.4) fL Immature Gran % (Auto) 0.2 % Neut % (Auto) 65.5 % Lymph % (Auto) 21.8 % [place] % (Auto) 10.6 % Eos % (Auto) 1.3 % Baso % (Auto) 0.6 % Neut # (Auto) 5.73 (1.40-6.50) K/uL Lymph # (Auto) 1.91 (1.2-3.4) K/uL [place] # (Auto) 0.93 H (0.11-0.59) K/uL Eos # (Auto) 0.11 (0-0.50) K/uL Baso # (Auto) 0.05 (0-0.2) K/uL Immature Gran # (Auto) 0.02 (0.01-0.20) K/uL VBG pH (7.36-7.41) VBG pCO2 (38-50) mmHg VBG pO2 mmHg VBG HCO3 mmol/L VBG O2 Saturation % VBG Base Excess mEq/L POC Sodium 131 L (135-144) mmol/L Sodium 130 L (136-145) mmol/L POC Potassium 4.4 (3.3-5.0) mmol/L Potassium 4.1 (3.5-5.1) mmol/L POC Chloride 98 L (101-112) mmol/L Chloride 96 L (98-107) mmol/L Carbon Dioxide 20 L (21-32) mmol/L POC Total CO2 19 L (24-31) mmol/L Anion Gap 14 H (3-11) POC Anion Gap 19.0 (16-25) mmol/L POC BUN 21 H (7-18) mg/dl BUN 19 (6-23) mg/dl Creatinine 1.17 (0.6-1.4) mg/dl POC Creatinine 1.1 (0.6-1.3) mg/dl Est Cr Clr Drug Dosing 79.2 ml/min Est GFR ( Amer) 78.6 ml/min Est GFR (Non-Af Amer) 67.8 ml/min BUN/Creatinine Ratio 16.2 (10-20) Glucose 381 H* (70-99(Fasting)) mg/dl POC Glucose (70-99) mg/dl POC Glucose (other) 385 H* (70-99) mg/dl Calcium 9.2 (8.6-10.3) mg/dl POC Ioniz Calcium Elizabeth 1.10 L (1.12-1.32) mmol/l Total Bilirubin 0.6 (0.2-1.0) mg/dl AST 13 (13-39) U/L ALT 11 (7-52) U/L Alkaline Phosphatase 104 (34-104) U/L Troponin I High Sens 45.1 H (0-20) pg/ml Total Protein 6.5 (6.0-8.3) gm/dl Albumin 3.6 (3.4-5.0) gm/dl Globulin 2.9 (2.5-4.0) gm/dl Albumin/Globulin Ratio 1.2 (0.9-2) Lipase 8 L (11-82) U/L Urine Color Urine Appearance (Clear) Urine pH (4.5-7.5) Ur Specific [place] (1.000-1.030) Urine Protein (Negative) Urine Glucose (UA) (Negative) Urine Ketones (Negative) Urine Blood (Negative) Urine Nitrite (Negative) Urine Bilirubin (Negative) Urine Urobilinogen (Negative) Ur Leukocyte Esterase (Negative) Urine WBC (Auto) (0-5) /hpf Urine RBC (Auto) (0-4) /hpf U Hyaline Cast (Auto) (0-5) /lpf U Epithel Cells (Auto) (0-5) /lpf Urine Bacteria (Auto) (Negative) 11/12/22 11/12/22 11/12/22 Range/Units 02:14 02:14 02:25 WBC (4.8-10.8) K/ul RBC (4.70-6.10) M/uL Hgb (14.0-18.0) g/dl POC Hgb (14.0-18.0) g/dl Hct (42.0-52.0) % POC Hct (42-52) % MCV (80.0-100.0) fL MCH (25.0-34.0) pg MCHC (32.0-36.0) g/dL RDW Std Deviation (36.4-46.3) fL RDW Coeff of Monica (11.5-14.5) % Plt Count (130-400) K/uL MPV (9.4-12.4) fL Immature Gran % (Auto) % Neut % (Auto) % Lymph % (Auto) % [place] % (Auto) % Eos % (Auto) % Baso % (Auto) % Neut # (Auto) (1.40-6.50) K/uL Lymph # (Auto) (1.2-3.4) K/uL [place] # (Auto) (0.11-0.59) K/uL Eos # (Auto) (0-0.50) K/uL Baso # (Auto) (0-0.2) K/uL Immature Gran # (Auto) (0.01-0.20) K/uL VBG pH 7.48 H (7.36-7.41) VBG pCO2 29 L (38-50) mmHg VBG pO2 24 mmHg VBG HCO3 22 mmol/L VBG O2 Saturation < 60.0 % VBG Base Excess -0.8 mEq/L POC Sodium (135-144) mmol/L Sodium (136-145) mmol/L POC Potassium (3.3-5.0) mmol/L Potassium (3.5-5.1) mmol/L POC Chloride (101-112) mmol/L Chloride (98-107) mmol/L Carbon Dioxide (21-32) mmol/L POC Total CO2 (24-31) mmol/L Anion Gap (3-11) POC Anion Gap (16-25) mmol/L POC BUN (7-18) mg/dl BUN (6-23) mg/dl Creatinine (0.6-1.4) mg/dl POC Creatinine (0.6-1.3) mg/dl Est Cr Clr Drug Dosing ml/min Est GFR ( Amer) ml/min Est GFR (Non-Af Amer) ml/min BUN/Creatinine Ratio (10-20) Glucose (70-99(Fasting)) mg/dl POC Glucose (70-99) mg/dl POC Glucose (other) (70-99) mg/dl Calcium (8.6-10.3) mg/dl POC Ioniz Calcium Elizabeth (1.12-1.32) mmol/l Total Bilirubin (0.2-1.0) mg/dl AST (13-39) U/L ALT (7-52) U/L Alkaline Phosphatase (34-104) U/L Troponin I High Sens 38.5 H (0-20) pg/ml Total Protein (6.0-8.3) gm/dl Albumin (3.4-5.0) gm/dl Globulin (2.5-4.0) gm/dl Albumin/Globulin Ratio (0.9-2) Lipase (11-82) U/L Urine Color Yellow Urine Appearance Clear (Clear) Urine pH 7.5 (4.5-7.5) Ur Specific [place] 1.023 (1.000-1.030) Urine Protein 1+ H (Negative) Urine Glucose (UA) 3+ H (Negative) Urine Ketones 1+ H (Negative) Urine Blood Negative (Negative) Urine Nitrite Negative (Negative) Urine Bilirubin Negative (Negative) Urine Urobilinogen Negative (Negative) Ur Leukocyte Esterase Negative (Negative) Urine WBC (Auto) 0 (0-5) /hpf Urine RBC (Auto) 0-4 (0-4) /hpf U Hyaline Cast (Auto) 0 (0-5) /lpf U Epithel Cells (Auto) 0-5 (0-5) /lpf Urine Bacteria (Auto) Negative (Negative) 11/12/22 Range/Units 03:11 WBC (4.8-10.8) K/ul RBC (4.70-6.10) M/uL Hgb (14.0-18.0) g/dl POC Hgb (14.0-18.0) g/dl Hct (42.0-52.0) % POC Hct (42-52) % MCV (80.0-100.0) fL MCH (25.0-34.0) pg MCHC (32.0-36.0) g/dL RDW Std Deviation (36.4-46.3) fL RDW Coeff of Monica (11.5-14.5) % Plt Count (130-400) K/uL MPV (9.4-12.4) fL Immature Gran % (Auto) % Neut % (Auto) % Lymph % (Auto) % [place] % (Auto) % Eos % (Auto) % Baso % (Auto) % Neut # (Auto) (1.40-6.50) K/uL Lymph # (Auto) (1.2-3.4) K/uL [place] # (Auto) (0.11-0.59) K/uL Eos # (Auto) (0-0.50) K/uL Baso # (Auto) (0-0.2) K/uL Immature Gran # (Auto) (0.01-0.20) K/uL VBG pH (7.36-7.41) VBG pCO2 (38-50) mmHg VBG pO2 mmHg VBG HCO3 mmol/L VBG O2 Saturation % VBG Base Excess mEq/L POC Sodium (135-144) mmol/L Sodium (136-145) mmol/L POC Potassium (3.3-5.0) mmol/L Potassium (3.5-5.1) mmol/L POC Chloride (101-112) mmol/L Chloride (98-107) mmol/L Carbon Dioxide (21-32) mmol/L POC Total CO2 (24-31) mmol/L Anion Gap (3-11) POC Anion Gap (16-25) mmol/L POC BUN (7-18) mg/dl BUN (6-23) mg/dl Creatinine (0.6-1.4) mg/dl POC Creatinine (0.6-1.3) mg/dl Est Cr Clr Drug Dosing ml/min Est GFR ( Amer) ml/min Est GFR (Non-Af Amer) ml/min BUN/Creatinine Ratio (10-20) Glucose (70-99(Fasting)) mg/dl POC Glucose 301 H* (70-99) mg/dl POC Glucose (other) (70-99) mg/dl Calcium (8.6-10.3) mg/dl POC Ioniz Calcium Elizabeth (1.12-1.32) mmol/l Total Bilirubin (0.2-1.0) mg/dl AST (13-39) U/L ALT (7-52) U/L Alkaline Phosphatase (34-104) U/L Troponin I High Sens (0-20) pg/ml Total Protein (6.0-8.3) gm/dl Albumin (3.4-5.0) gm/dl Globulin (2.5-4.0) gm/dl Albumin/Globulin Ratio (0.9-2) Lipase (11-82) U/L Urine Color Urine Appearance (Clear) Urine pH (4.5-7.5) Ur Specific [place] (1.000-1.030) Urine Protein (Negative) Urine Glucose (UA) (Negative) Urine Ketones (Negative) Urine Blood (Negative) Urine Nitrite (Negative) Urine Bilirubin (Negative) Urine Urobilinogen (Negative) Ur Leukocyte Esterase (Negative) Urine WBC (Auto) (0-5) /hpf Urine RBC (Auto) (0-4) /hpf U Hyaline Cast (Auto) (0-5) /lpf U Epithel Cells (Auto) (0-5) /lpf Urine Bacteria (Auto) (Negative) Imaging Data Attestation: I personally reviewed and interpreted this imaging study as follows: Radiologist's Impression: Abdomen/Pelvis CT 11/12/22 00:45 Exam(s): CT ABDOMEN + PELVIS With Contrast IV Amt: 117 ML OPTIRAY 350 EXAM: CT Abdomen and Pelvis With Intravenous Contrast CLINICAL HISTORY: Fall. TECHNIQUE: Axial computed tomography images of the abdomen and pelvis with intravenous contrast. CTDI is 19.47 mGy and DLP is 1008.25 mGy-cm. Automated exposure control was utilized for the study. A dose lowering technique was utilized adhering to the principles of ALARA. CONTRAST: Patient received 117 ML OPTIRAY 350 of IV contrast COMPARISON: CT abdomen and pelvis 11/02/2021 FINDINGS: Lung bases: Unremarkable. No mass. No consolidation. There is elevation of the left hemidiaphragm. ABDOMEN: Liver: Unremarkable. No mass. Gallbladder and bile ducts: Unremarkable. No calcified stones. No ductal dilation. Pancreas: Unremarkable. No mass. No ductal dilation. Spleen: Unremarkable. No splenomegaly. Adrenals: Unremarkable. No mass. Kidneys and ureters: Unremarkable. No solid mass. No hydronephrosis. Stomach and bowel: Unremarkable. No obstruction. No mucosal thickening. PELVIS: Appendix: Normal appendix. Bladder: Unremarkable. No mass. Reproductive: Unremarkable as visualized. ABDOMEN and PELVIS: Intraperitoneal space: Unremarkable. No free air. No significant fluid collection. Bones/joints: There are degenerative changes of the spine. No acute fracture. No dislocation. Soft tissues: There is thickening of the anterior abdominal wall dermis adjacent to the umbilicus. Vasculature: Mild atherosclerosis. No abdominal aortic aneurysm. Lymph nodes: Unremarkable. No enlarged lymph nodes. IMPRESSION: There is thickening of the anterior abdominal wall dermis adjacent to the umbilicus. This may be infectious or inflammatory. Otherwise, no acute finding. Electronically signed by: Milly Schmidt MD 11/12/22 02:29 AM Chest CTA 11/12/22 00:46 Exam(s): CTA CHEST IV Amt: 117 ML OPTIRAY 350 EXAM: CT Angiography Chest With Intravenous Contrast CLINICAL HISTORY: Chest pain. TECHNIQUE: Axial computed tomographic angiography images of the chest with intravenous contrast. CTDI is 22.5 mGy and DLP is 771.66 mGy-cm. Automated exposure control was utilized for the study. A dose lowering technique was utilized adhering to the principles of ALARA. MIP reconstructed images were created and reviewed. COMPARISON: No relevant prior studies available. FINDINGS: Pulmonary arteries: Unremarkable. No pulmonary embolus. Aorta: No acute findings. No thoracic aortic aneurysm. Lungs: Unremarkable. No mass. No consolidation. Pleural space: Unremarkable. No significant effusion. No pneumothorax. Heart: Unremarkable. No cardiomegaly. No significant pericardial effusion. No evidence of RV dysfunction. Bones/joints: Minimal atherosclerosis. No aneurysm or dissection. Degenerative. No acute fracture. No dislocation. Soft tissues: Unremarkable. Lymph nodes: Unremarkable. No enlarged lymph nodes. IMPRESSION: No pulmonary embolus. Electronically signed by: Milly Schmidt MD 11/12/22 02:27 AM [facility] Narrative Prior records/ancillary studies reviewed. Triage Nursing notes reviewed. Additional history obtained from family. The patient's history was concerning for chest and abdominal pain with traumatic injury Differential diagnosis: Etiologies such as fracture, dislocation, intra-abdominal, pneumothorax, intrathoracic , intracranial, neurologic, as well as other traumatic pathologies were entertained. Physical examination findings: As above. The patients vitals were stable. ER treatment provided: IV Normal Saline hydration, morphine and Zofran were ordered Insulin was ordered for hyperglycemia An order was placed for continuous cardiac monitoring. The monitor shows a rate of 60-100 with a sinus rhythm per my interpretation. On reassessment the patient felt better. Vital signs were stable. Diagnostic interpretation by me: EKG ordered for upper abdominal pain and A 12 lead ECG revealed no emergent pathology. EKG: Normal sinus, normal intervals, poor baseline, no acute ST-T wave changes. Impression normal sinus rhythm independently interpreted by myself I think arrhythmia is unlikely. EKG shows normal sinus rhythm with no interval abnormalities such as QT prolongation or WPW. There are no findings to suggest Brugada syndrome. Cardiac monitoring in the emergency department reveals no tachycardic or bradycardic dysrhythmia. Hypertrophic cardiomyopathy was considered but there are no clear historical elements pointing toward this. EKG is not suggestive. The QRS voltage is not extremely large The labs Independently Interpreted by myself revealed VBG with stable pH. Hyperglycemia Slightly elevated troponin. Repeat was ordered Imaging studies: Chest x-ray without acute consolidation, pneumothorax or free air per my independent interpretation CTs of the chest abdomen pelvis were reviewed by myself and independent interpreted with no PE or intra-abdominal injury and read by radiology as above. Patient had no signs of cellulitis on the abdominal wall. The thickening of the skin is from the area where he gets his insulin shots at HEART SCORE: Hx: high/mod/low suspicion: 0 ECG: ST depression/nonspecific changes/normal: 0 Age: Greater than 65/45-64/less than 45: 1 Risk factors: (Hypertension, hyperlipidemia, diabetes, coronary disease, tobacco use, cocaine use): 2 Troponin: Greater than 2 times normal limits/1-2 times normal limits/normal: 1 Total: 3 Consultation: A consultation was placed with hospitalist. The case was discussed and diagnostics were reviewed. The patient was admitted to their service for further evaluation and treatment. This appears to be consistent with poorly controlled diabetes with a gap but stable pH and a elevated troponin. Labs and diagnostics were independently interpreted by myself. Imaging was negative for PE or intra-abdominal injury. Patient was given medications as above. Blood sugar did improve. VBG showed stable pH. Medicine was consulted and case is discussed. Patient will be admitted to the medical service for further evaluation and treatment. By the evaluation outlined above emergent etiologies such as fracture, dislocation, int ra-abdominal, pneumothorax, pulmonary contusion, hemothorax, intracranial, neurologic,as well as others were deemed relatively unlikely. The pt informed about the findings as listed above. All questions were answered and pleased with the treatment. The chart was completed utilizing [employer] Speech voice recognition software. Grammatical errors, random word insertions, pronoun errors, and incomplete sentences are an occassional consequence of this system due to software limitations, ambient noise, and hardware issues. Any formal questions or concerns about the content, text, or information contained within the body of this dictation should be directly addressed to the physician veterinary assistant for clarification. Impression & Plan Chest pain, Elevated troponin, Acute hyperglycemia Discharge Plan Visit Data Chief Complaint: Flank Pain Stated Complaint: RIGHT SIDED PAIN UNDER RIB CAGE ED Provider: Pheasant,Melissa S. ED Midlevel Provider: Bethany Hernandez Discharge Problem: Chest pain, Elevated troponin, Acute hyperglycemia Patient Disposition: Admitted As Inpatient Condition: Good Forms Stand Alone Forms: My [facility] [employer] Prescriptions Prescriptions: No Action aspirin [Adult Aspirin Regimen] 81 mg tablet,delayed release (DR/EC) 81 mg PO DAILY cholecalciferol (vitamin D3) 25 mcg (1,000 unit) capsule 25 mcg PO DAILY gabapentin 600 mg Tablet 600 mg PO AMHS insulin glargine [Lantus U-100 Insulin] 100 unit/mL Solution 28 unit SUBCUT BID metoprolol tartrate 100 mg tablet See Rx Instructions .ROUTE .COMPLEX Rx Instructions: TAKES 50 MG QAM, THEN 100 MG QPM. cyanocobalamin (vitamin B-12) [Vitamin B-12] 1,000 mcg Tablet 1,000 mcg PO DAILY acetaminophen [Tylenol Extra Strength] 500 mg Tablet 500 - 1,000 mg PO Q8 PRN (Reason: Pain) pantoprazole 40 mg tablet,delayed release (DR/EC) 40 mg PO QAM metformin 1,000 mg tablet 1,000 mg PO BID insulin aspart U-100 [Novolog FlexPen U-100 Insulin] 100 unit/mL (3 mL) insulin pen 6 unit SUBCUT TIDWMEAL potassium chloride 20 mEq Tablet,Er Particles/Crystals 40 meq PO QAM Qty: 60 0RF furosemide 20 mg tablet 20 mg PO DAILY Entresto 24-26 mg tablet 1 tab PO BID Referrals Referrals: Dino Johnson MD [Primary Care Provider] - Chest pain Qualifiers: Chest pain type: unspecified Qualified Code(s): R07.9 - Chest pain, unspecified
[2022-11-12 01:11] LABS: iSTAT Creatinine 1.1 mg/dl (0.6-1.3); iSTAT Hemoglobin 11.9 g/dl (14.0-18.0); iSTAT Ionized Calcium 1.1 mmol/l (1.12-1.32); iSTAT Potassium 4.4 mmol/L (3.3-5.0)
[2022-11-12 01:21] LABS: Basophils # (auto) 0.05 K/uL (0-0.2); Basophils % (auto) 0.6 %; Eosinophils # (auto) 0.11 K/uL (0-0.50); Eosinophils % (auto) 1.3 %; Hematocrit (blood only) 33.6 % (42.0-52.0); Hemoglobin 11.4 g/dl (14.0-18.0); Immature Granulocytes # (auto) 0.02 K/uL (0.01-0.20); Immature Granulocytes % (auto) 0.2 %; Lymphocytes # (auto) 1.91 K/uL (1.2-3.4); Lymphocytes % (auto) 21.8 %; Mean Corpuscular Hemoglobin 28.4 pg (25.0-34.0); Mean Corpuscular Hgb Conc 33.9 g/dL (32.0-36.0); Mean Corpuscular Volume 83.6 fL (80.0-100.0); Mean Platelet Volume 11.4 fL (9.4-12.4); Monocytes # (auto) 0.93 K/uL (0.11-0.59); Monocytes % (auto) 10.6 %; Neutrophils # (auto) 5.73 K/uL (1.40-6.50); Neutrophils % (auto) 65.5 %; Platelet Count 234 K/uL (130-400); RDW Coefficient of Variation 13.8 % (11.5-14.5); RDW Standard Deviation 42.2 fL (36.4-46.3); Red Blood Count 4.02 M/uL (4.70-6.10); White Blood Count 8.75 K/ul (4.8-10.8)
[2022-11-12] MEDS ORDERED: IOVERSOL 350 MG 125mL Prefilled Syringe IV ONE (01:37)
[2022-11-12 01:44] LABS: Albumin Globulin Ratio 1.2 (0.9-2); Albumin Level 3.6 gm/dl (3.4-5.0); BUN Creatinine Ratio 16.2 (10-20); Bilirubin,Total 0.6 mg/dl (0.2-1.0); Calcium 9.2 mg/dl (8.6-10.3); Creatinine Clr Calc Pharmacy 79.2 ml/min; Est GFR (African American) 78.6 ml/min; Est GFR (Non-African American) 67.8 ml/min; Globulin 2.9 gm/dl (2.5-4.0); Potassium 4.1 mmol/L (3.5-5.1); Total Protein 6.5 gm/dl (6.0-8.3)
[2022-11-12] MEDS ORDERED: SODIUM CHLORIDE 0.9% 1000ML 1,000 ML IV ONE (01:48)
[2022-11-12 01:50] LABS: Troponin I High Sensitivity 45.1 pg/ml (0-20)
[2022-11-12 02:20] LABS: Base Excess VBG -0.8 mEq/L; HCO3 VBG 22 mmol/L; Oxygen Saturation VBG < 60.0 %; PCO2 VBG 29 mmHg (38-50); PO2 VBG 24 mmHg; pH VBG 7.48 (7.36-7.41)
--- NOTE | 2022-11-12 02:28 | CT Scan Report ---
Exam(s): CTA CHEST IV Amt: 117 ML OPTIRAY 350 EXAM: CT Angiography Chest With Intravenous Contrast CLINICAL HISTORY: Chest pain. TECHNIQUE: Axial computed tomographic angiography images of the chest with intravenous contrast. CTDI is 22.5 mGy and DLP is 771.66 mGy-cm. Automated exposure control was utilized for the study. A dose lowering technique was utilized adhering to the principles of ALARA. MIP reconstructed images were created and reviewed. COMPARISON: No relevant prior studies available. FINDINGS: Pulmonary arteries: Unremarkable. No pulmonary embolus. Aorta: No acute findings. No thoracic aortic aneurysm. Lungs: Unremarkable. No mass. No consolidation. Pleural space: Unremarkable. No significant effusion. No pneumothorax. Heart: Unremarkable. No cardiomegaly. No significant pericardial effusion. No evidence of RV dysfunction. Bones/joints: Minimal atherosclerosis. No aneurysm or dissection. Degenerative. No acute fracture. No dislocation. Soft tissues: Unremarkable. Lymph nodes: Unremarkable. No enlarged lymph nodes. IMPRESSION: No pulmonary embolus. Electronically signed by: Milly Schmidt MD 11/12/22 02:27 AM
--- NOTE | 2022-11-12 02:30 | CT Scan Report ---
Exam(s): CT ABDOMEN + PELVIS With Contrast IV Amt: 117 ML OPTIRAY 350 EXAM: CT Abdomen and Pelvis With Intravenous Contrast CLINICAL HISTORY: Fall. TECHNIQUE: Axial computed tomography images of the abdomen and pelvis with intravenous contrast. CTDI is 19.47 mGy and DLP is 1008.25 mGy-cm. Automated exposure control was utilized for the study. A dose lowering technique was utilized adhering to the principles of ALARA. CONTRAST: Patient received 117 ML OPTIRAY 350 of IV contrast COMPARISON: CT abdomen and pelvis 11/02/2021 FINDINGS: Lung bases: Unremarkable. No mass. No consolidation. There is elevation of the left hemidiaphragm. ABDOMEN: Liver: Unremarkable. No mass. Gallbladder and bile ducts: Unremarkable. No calcified stones. No ductal dilation. Pancreas: Unremarkable. No mass. No ductal dilation. Spleen: Unremarkable. No splenomegaly. Adrenals: Unremarkable. No mass. Kidneys and ureters: Unremarkable. No solid mass. No hydronephrosis. Stomach and bowel: Unremarkable. No obstruction. No mucosal thickening. PELVIS: Appendix: Normal appendix. Bladder: Unremarkable. No mass. Reproductive: Unremarkable as visualized. ABDOMEN and PELVIS: Intraperitoneal space: Unremarkable. No free air. No significant fluid collection. Bones/joints: There are degenerative changes of the spine. No acute fracture. No dislocation. Soft tissues: There is thickening of the anterior abdominal wall dermis adjacent to the umbilicus. Vasculature: Mild atherosclerosis. No abdominal aortic aneurysm. Lymph nodes: Unremarkable. No enlarged lymph nodes. IMPRESSION: There is thickening of the anterior abdominal wall dermis adjacent to the umbilicus. This may be infectious or inflammatory. Otherwise, no acute finding. Electronically signed by: Milly Schmidt MD 11/12/22 02:29 AM
[2022-11-12 02:35] LABS: Appearance Urine Clear (Clear); Bacteria Urine Automated Negative (Negative); Bilirubin Urine Negative (Negative); Blood Urine Negative (Negative); Cast Urine Automated 0 /lpf (0-5); Color Urine Yellow; Epithelial Cell Urine Auto 0-5 /lpf (0-5); Glucose Urine UA 3+ (Negative); Ketones Urine 1+ (Negative); Leukocyte Esterase Urine Negative (Negative); Nitrite Urine Negative (Negative); RBC Urine Automated 0-4 /hpf (0-4); Specific Gravity Urine 1.023 (1.000-1.030); Urobilinogen Urine Negative (Negative); WBC Urine Automated 0 /hpf (0-5); pH Urine 7.5 (4.5-7.5)
[2022-11-12 02:38] LABS: Protein Urine 1+ (Negative)
[2022-11-12] MEDS ORDERED: NovoLIN-R INSULIN PER UNIT CHARGE IV STA (03:20)
[2022-11-12] MEDS ORDERED: diphenhydrAMINE 50 MG/ML VIAL IV STA (03:21)
--- NOTE | 2022-11-12 04:09 | History & Physical Report ---
Date of Service November 12, 2022 Assessment & Plan (1) Abdominal pain: Plan: 57 M with PMH CHF, type 2 diabetes, GERD, who presents with colicky RUQ, epigastric pain. Now admitted for further evaluation, management. Abdominal pain -No nausea vomiting. No leukocytosis. Lipase LFTs, transaminases normal. CT A/P, CT chest negative. -Abdominal pain predominantly RUQ, worse with movement. * Admit to observation (med telemetry) * N.p.o. except for meds. * Pain control with IV Tylenol, as needed IV Dilaudid. * HIDA scan ordered to r/o cholecystic/biliary process. Consider GI consult as well for evaluation. Hyperglycemia -BSG 381 on admission. S/p Novolin 10 units in the ED. -On basal bolus insulin at home (28 units Lantus twice daily, NovoLog 6 units 3 times daily with meals). * Lantus 14 units twice daily; SSI coverage per protocol. Elevated troponin -45.1 on admission. Downtrended (38.5). Consider resolved. Other chronic conditions: Continue home meds. Code: Full code Dispo: PCU FEN/GI: NPO. DVT Prophylaxis: Heparin 5000 u q12h PT/OT: No Consults: None Case Management: No (2) Hyperglycemia due to type 2 diabetes mellitus: (3) Elevated troponin: (4) GERD (gastroesophageal reflux disease): History of Present Illness Primary Care Provider: Dino Johnson MD Casey is a 57-year-old male with a past medical history of type 2 diabetes, CHF, hypertension, GERD, and previous kidney stones, who presents to the ED with right-sided rib pain, RUQ pain for 1 day. Patient reports falling on his side 2 nights ago, but the pain did not start until last night. Otherwise, he denies shortness of breath, dizziness, nausea, constipation, or diarrhea. In the ED, vitals were notable for mild tachycardia. Labs were notable for glucose-381, and troponin-45.1. Lipase was 8, AST/ALT, and alk phos were all within normal limits. Chest CT was negative, as was CT A/P, for an acute process or abnormality. He received 10 units of Novolin, and IV morphine for pain. Hospitalist service was then consulted for admission. Allergies Allergy/AdvReac Type Severity Reaction Status Date / Time levofloxacin AdvReac Intermediate GI SYMPTOMS Verified 11/12/22 02:03 pneumococcal vaccine AdvReac Intermediate GI Verified 11/12/22 02:03 SYMPTOMS-OK IF MULTIPLE VACCINES GIVEN SEPARATELY tetanus toxoid, adsorbed AdvReac Intermediate TETANUS/DIPTHERIA/PERTUSSIS-GI Verified 11/12/22 02:03 UPSTE/BODY ACHES Home Medications Medication Instructions Recorded Confirmed Type acetaminophen 500 mg tablet 500 - 1,000 mg PO Q8 PRN Pain 01/30/22 11/12/22 History (Tylenol Extra Strength) cyanocobalamin (vitamin B-12) 1,000 mcg PO DAILY 01/30/22 11/12/22 History 1,000 mcg tablet (Vitamin B-12) gabapentin 600 mg tablet 600 mg PO AMHS 01/30/22 11/12/22 History insulin aspart U-100 100 unit/mL 6 unit subcut TIDWMEAL 01/30/22 11/12/22 History (3 mL) subcutaneous pen (Novolog FlexPen U-100 Insulin aspart) insulin glargine 100 unit/mL 28 unit subcut BID 01/30/22 11/12/22 History subcutaneous solution (Lantus U-100 Insulin) metformin 1,000 mg tablet 1,000 mg PO BID 01/30/22 11/12/22 History metoprolol tartrate 100 mg tablet See Rx Instructions .Route .COMPLEX 01/30/22 11/12/22 History pantoprazole 40 mg tablet,delayed 40 mg PO QAM 01/30/22 11/12/22 History release potassium chloride 20 mEq 40 meq PO QAM #60 tabs 02/09/22 11/12/22 Rx tablet,extended release(part/cryst) aspirin 81 mg tablet,delayed 81 mg PO DAILY 03/08/22 11/12/22 History release (Adult Aspirin Regimen) cholecalciferol (vitamin D3) 25 25 mcg PO DAILY 03/08/22 11/12/22 History mcg (1,000 unit) capsule furosemide 20 mg tablet 20 mg PO DAILY 11/12/22 11/12/22 History sacubitril 24 mg-valsartan 26 mg 1 tab PO BID 11/12/22 11/12/22 History tablet (Entresto) Past Med/Surg History Medical History Acute on chronic congestive heart failure Anxiety and depression Attention deficit disorder (ADD) Bulging lumbar disc Cardiac murmur FOLLOWS WITH DR. GREENWOOD CHF (congestive heart failure) Diabetic peripheral neuropathy associated with type 2 diabetes mellitus DM type 2 (diabetes mellitus, type 2) GERD (gastroesophageal reflux disease) History of amputation of right great toe History of anemia History of kidney stones HTN (hypertension) Hx MRSA infection 2018> resolved Hx of diabetic foot ulcer Hyperlipidemia Infection of prosthetic right knee joint Obesity Obstructive sleep apnea syndrome Osteoarthritis Sleep apnea CPAP Surgical History History of colonoscopy History of open reduction and internal fixation (ORIF) procedure RT HAND History of tooth extraction History of total left knee replacement History of wisdom tooth extraction S/P revision of total knee LEFT Family History Father Family history of diabetes mellitus Other No family history of adverse response to anesthesia No pertinent family history Social History Smoking Status: Never smoker Second Hand Exposure: No; Do You Dip or Chew Tobacco: No; Hx Alcohol Use: No Hx Substance Use: No Preferred Language: Czech Communication Ability: Impaired Visual Impairment: Limited Assistant Required: No Beliefs That Will Affect Care: None marital status: Current Living Situation: Spouse current occupational status: employed 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 Normal conjunctiva, anicteric sclera. Oropharynx normal. Respiratory: Normal respiratory effort, CTABL. Cardiovascular: RRR without murmurs, gallops, or rubs. No pedal edema. GI: Soft abdomen with normal bowel sounds heard on auscultation. Tenderness to palpation at the right upper quadrant, epigastrium, and left lower quadrant. Neuro: Alert and oriented x3. Results & Data Results & Data Vital Signs (Past 12 Hours) Vital Signs Temp Pulse Pulse Resp BP BP Pulse Ox 11/12/22 02:23 83 16 115/71 97 11/12/22 01:05 98 11/12/22 00:29 36.9 C 105 H 16 136/75 99 O2 Del Method 11/12/22 02:23 Room Air 11/12/22 01:05 Room Air 11/12/22 00:29 Room Air Resident Activity Tracking Resident Involvement: Resident Care Provided Care Provided: Adult Hospital Medicine (1) Abdominal pain Abdominal location: right lower quadrant Qualified Code(s): R10.31 - Right lower quadrant pain
[2022-11-12] MEDS ORDERED: NITROGLYCERIN SL 0.4 MG/TAB TAB SL PRN (04:49)
[2022-11-12] MEDS ORDERED: GLUCOSE 40% GEL 15 GM TUBE PO PRN (04:49)
[2022-11-12] MEDS ORDERED: DEXTROSE 50% 50 ML SYRINGE IV PRN (04:49)
[2022-11-12] MEDS ORDERED: ACETAMINOPHEN 1,000 MG/100 ML VIAL IV PRN (04:49)
[2022-11-12] MEDS ORDERED: GLUCAGON FOR INJ 1 MG VIAL SQ PRN (04:49)
[2022-11-12] MEDS ORDERED: CARBOHYDRATES FOR HYPOGLYCEMIA PO PRN (04:49)
[2022-11-12] MEDS ORDERED: GLUCOSE 10 TAB/TUBE PO PRN (04:49)
[2022-11-12] MEDS ORDERED: HYDROmorphone INJ 0.5 MG/0.5 ML SYR IV PRN ×2 (04:49)
--- NOTE | 2022-11-12 07:01 | XRay Report ---
XR chest 1V portable CLINICAL HISTORY: Chest pain, nonspecific TECHNIQUE: Single frontal radiograph of the chest was obtained. Comparison: None available at the time of this dictation. FINDINGS: No lines and tubes are seen. The cardiomediastinal silhouette is normal. The lungs are clear. No evid ence of pleural effusion or pneumothorax. IMPRESSION: No acute chest disease. ACT 112: Negative or not required by law. Electronically signed by: Carl Deras M.D. 11/12/2022 6:59 AM
[2022-11-12] MEDS: INSULIN ASPART PER UNIT CHARGE SC SCH ×3 (10:07→17:13)
[2022-11-12] MEDS: GABAPENTIN 600 MG TAB PO SCH ×2 (10:24→20:44)
[2022-11-12] MEDS: HEPARIN SOD 5,000 UNIT/0.5 ML VIAL SQ SCH ×2 (10:25→20:44)
[2022-11-12] MEDS: VALSARTAN/SACUBITRIL 26/24MG TAB PO SCH ×2 (10:25→20:44)
[2022-11-12] MEDS: METOPROLOL TARTRATE 50 MG TAB PO SCH (10:25)
[2022-11-12] MEDS: PANTOprazole 40 MG in SYRINGE 0 ML IV SCH (11:59)
[2022-11-12] MEDS: LANTUS PER UNIT CHARGE SQ SCH ×2 (12:00→22:02)
[2022-11-12] MEDS ORDERED: SINCALIDE 1.9 MCG in 0.9 % SODIUM CHLORIDE 100 ML IV SCH (12:00)
--- NOTE | 2022-11-12 12:46 | Electrocardiogram Report ---
Test Reason : Blood Pressure : / mmHG Vent. Rate : 094 BPM Atrial Rate : 094 BPM P-R Int : 164 ms QRS Dur : 090 ms QT Int : 380 ms P-R-T Axes : 041 -03 054 degrees QTc Int : 475 ms Normal sinus rhythm Septal infarct , age undetermined Abnormal ECG When compared with ECG of 31-JAN-2022 06:14, No significant change was found Confirmed by Efrem Duenas ([id number]) on 11/12/2022 12:46:10 PM Referred By: REFERRED SELF Confirmed By:Efrem Duenas
--- NOTE | 2022-11-12 15:11 | Nuclear Medicine Report ---
NM hepatobiliary EF CLINICAL HISTORY: 57 years-old Male with RUQ pain. Acute right upper quadrant abdominal pain TECHNIQUE: Following the intravenous administration of 5.0 mCi of technetium-99m Choletec, sequentia l abdominal images were obtained. In order to evaluate the contractile response of the gallbladder, 1.9 mcg of Kinevac was administered by slow intravenous infusion over 30 min starting approximately 6 0 min after the administration of the radiopharmaceutical. Sequential imaging was continued for 45 m in after the start of the Kinevac infusion. COMPARISON: CT 11/12/2022 FINDINGS: There is prompt, uniform accumulation of the tracer by the liver. There is normal filling of the int rahepatic ducts, common bile duct and gallbladder and normal excretion of the tracer into the duodenu m. There is suboptimal contraction of the gallbladder. The calculated gallbladder ejection fraction is 11% (normal >40%). There is mild enterogastric reflux. IMPRESSION: 1. Decreased contractile response of the gallbladder to Kinevac infusion. 2. Mild enterogastric reflux. ACT 112: Negative or not required by law. The above report was generated using voice recognition software. It may contain grammatical, syntax o r spelling errors. Electronically signed by: Gus Haider M.D. 11/12/2022 3:10 PM
[2022-11-12] MEDS ORDERED: diphenhydrAMINE Capsule 25 MG CAP PO ONE (17:13)
[2022-11-12 18:06] LABS: BUN Creatinine Ratio 12.4 (10-20); Calcium 8.7 mg/dl (8.6-10.3); Creatinine Clr Calc Pharmacy 92.2 ml/min; Est GFR (African American) 98.6 ml/min; Est GFR (Non-African American) 85.1 ml/min; Magnesium 1.8 mg/dl (1.7-2.4); Potassium 3.8 mmol/L (3.5-5.1)
--- NOTE | 2022-11-12 18:30 | Communication Note ---
Date of Service: November 12, 2022 Seen this am and again in the afternoon. Persistent right sided lower chest pain on the side. Better when not moving. No lower abdominal pain. no fever. o/e - General - in distress from pain. TTP across left lower chest wall laterally. Rest of abdomen and chest wall with no tenderness. BS + H - RRR Reviewed chart Acute right lower abdomen/chest wall pain - HIDA with 10% EF. consult surgery added. continue NPO. 50 beats of WCT - check bmp, mag. consult cardio. echo ordered. check troponin right toe wound - consult wound care see the H and P for rest of the information.
--- NOTE | 2022-11-12 19:57 | Surgery Consultation ---
This case was discussed with the surgical PA. I agreed with the plan. Date of Consultation November 12, 2022 Assessment & Plan (1) Biliary dyskinesia: The patient has been admitted on the hospitalist service. He is currently undergoing evaluation for chest pain. An echocardiogram has been ordered which is pending.Serial troponins are being followed. Concerning the patient's abnormal HIDA scan at the present time the patient does not exhibit any signs or symptoms of acute cholecystitis. I discussed case with my attending physician Dr. Davis and she feels that the patient will likely need to undergo further evaluation with possible upper endoscopy and potentially GI evaluation prior to consideration being given to performing cholecystectomy. In addition, the patient's above noted work-up for chest pain will need to be completed prior to entertaining any surgical intervention. It does appear on physical exam that the majority of patient's pain is located over his right lower ribs as described in the physical exam section of this note which may be the likely culprit of the patient's pain. History of Present Illness Reason for Consultation: Abnormal HIDA scan Attending Physician: Makenna Bravo MD History of Present Illness This is a 57-year-old male who presented to the hospital secondary to chest pain in the right lower chest along with right sided upper abdominal pain. The patient reports that he fell out of bed approximately 3 to 4 days ago falling on his right side. He notes that over the past 2 days he developed some pain that is gotten progressively worse. He notes that the pain appears to be much worse with coughing. He denies any fevers, shakes, or chills. He denies any nausea or vomiting. I did asked the patient if he has been experiencing any postprandial pain over the past several weeks to months which he denies. He denies any prior abdominal surgeries. Since arrival to the hospital the patient has had labs and imaging which I independent reviewed. The patient did have a CT scan of the abdomen and pelvis. This showed the patient had some thickening of the anterior abdominal wall dermis near the umbilicus. There were no additional acute findings noted. Of note, there were no gallstones noted and no biliary ductal dilatation. Chest x- ray showed no evidence of pneumonia. A CT scan of the chest did not show any evidence of pulmonary emboli. A HIDA scan was performed that showed normal filling of the intrahepatic ducts, the common bile duct, and the gallbladder. The gallbladder ejection fraction was noted to be decreased at 11%. Labs include a CBC were white blood cell count platelet count were normal. His hemoglobin and hematocrit were 11.4 and 33.6. Chemistry profile showed sodium was 135 with a normal potassium. BUN and creatinine were noted to be both within the normal range. The patient did not have any elevation of his bilirubin, transaminases, or alkaline phosphatase. His lipase was also nonelevated. He did have a slight elevation of his troponin at 38.5. A urinalysis was not indicative of infection. An EKG did not show any evidence of acute ischemic changes. I asked the patient about his functional status and he notes that he is fairly active when he is feeling well. He notes that he can walk on a flat surface wit hout any chest pain or shortness of breath and also notes that he can negotiate steps and inclines. He does report a history of diabetes and notes that he did suffer an infection of his right great toe several years ago which required a partial amputation At the time of my interview the patient was resting comfortably in bed and he was in no distress Allergies Allergy/AdvReac Type Severity Reaction Status Date / Time levofloxacin AdvReac Intermediate GI SYMPTOMS Verified 11/12/22 02:03 pneumococcal vaccine AdvReac Intermediate GI Verified 11/12/22 02:03 SYMPTOMS-OK IF MULTIPLE VACCINES GIVEN SEPARATELY tetanus toxoid, adsorbed AdvReac Intermediate TETANUS/DIPTHERIA/PERTUSSIS-GI Diana ified 11/12/22 02:03 UPSTE/BODY ACHES Home Medications Medication Instructions Recorded Confirmed Type acetaminophen 500 mg tablet 500 - 1,000 mg PO Q8 PRN Pain 01/30/22 11/12/22 History (Tylenol Extra Strength) cyanocobalamin (vitamin B-12) 1,000 mcg PO DAILY 01/30/22 11/12/22 History 1,000 mcg tablet (Vitamin B-12) gabapentin 600 mg tablet 600 mg PO AMHS 01/30/22 11/12/22 History insulin aspart U-100 100 unit/mL 6 unit subcut TIDWMEAL 01/30/22 11/12/22 History (3 mL) subcutaneous pen (Novolog FlexPen U-100 Insulin aspart) insulin glargine 100 unit/mL 28 unit subcut BID 01/30/22 11/12/22 History subcutaneous solution (Lantus U-100 Insulin) metformin 1,000 mg tablet 1,000 mg PO BID 01/30/22 11/12/22 History metoprolol tartrate 100 mg tablet See Rx Instructions .Route .COMPLEX 01/30/22 11/12/22 History pantoprazole 40 mg tablet,delayed 40 mg PO QAM 01/30/22 11/12/22 History release potassium chloride 20 mEq 40 meq PO QAM #60 tabs 02/09/22 11/12/22 Rx tablet,extended release(part/cryst) aspirin 81 mg tablet,delayed 81 mg PO DAILY 03/08/22 11/12/22 History release (Adult Aspirin Regimen) cholecalciferol (vitamin D3) 25 25 mcg PO DAILY 03/08/22 11/12/22 History mcg (1,000 unit) capsule furosemide 20 mg tablet 20 mg PO DAILY 11/12/22 11/12/22 History sacubitril 24 mg-valsartan 26 mg 1 tab PO BID 11/12/22 11/12/22 History tablet (Entresto) Patient History Medical History Acute on chronic congestive heart failure Anxiety and depression Attention deficit disorder (ADD) Bulging lumbar disc Cardiac murmur FOLLOWS WITH DR. GREENWOOD CHF (congestive heart failure) Diabetic peripheral neuropathy associated with type 2 diabetes mellitus DM type 2 (diabetes mellitus, type 2) GERD (gastroesophageal reflux disease) History of amputation of right great toe History of anemia History of kidney stones HTN (hypertension) Hx MRSA infection 2018> resolved Hx of diabetic foot ulcer Hyperlipidemia Infection of prosthetic right knee joint Obesity Obstructive sleep apnea syndrome Osteoarthritis Sleep apnea CPAP Surgical History History of colonoscopy History of open reduction and internal fixation (ORIF) procedure RT HAND History of tooth extraction History of total left knee replacement History of wisdom tooth extraction S/P revision of total knee LEFT Family History Father Family history of diabetes mellitus Other No family history of adverse response to anesthesia No pertinent family history Social History Smoking Status: Never smoker Second Hand Exposure: No; Do You Dip or Chew Tobacco: No; Hx Alcohol Use: Yes Alcohol type: beer Hx Substance Use: No Preferred Language: Burmese Communication Ability: Effective Visual Impairment: Limited Motion Picture Narrator Required: No Beliefs That Will Affect Care: None marital status: Current Living Situation: Spouse current occupational status: employed 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 , 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 How many Children do You have: 2 Other Information That Helps Us Care for You: No Feels Safe at Home: Yes Safety Concerns: Feels Safe At This Time Diet: diabetic during the past year weight has: remained stable Assistive Devices: CPAP, Denture - Upper, Glasses, Walker and Wheelchair Review of Systems Constitutional: no fever and no chills Eyes: + corrective lenses Ear, Nose, Mouth, Throat: no ear pain Respiratory: no cough and no dyspnea Cardiovascular: + chest pain (Right-sided chest pain in the lower chest wall) Gastrointestinal: + abdominal pain; no nausea and no vomiting Genitourinary: no dysuria Musculoskeletal: no back pain Integumentary: no rash Neurologic: no localized weakness Physical Exam Physical Exam: No chest wall ecchymosis was noted Constitutional: WD/WN, vitals as above Eyes: + anicteric sclerae Wears glasses ENMT: Ears: no hearing impairment and no external ear abnormality No sublingual jaundice noted Neck: trachea midline Respiratory: normal respiratory effort; no respiratory distress and no labored breathing No wheezing Cardiovascular: Rate/Rhythm: regular rate and regular rhythm Gastrointestinal (Abdomen): Abdomen is soft and nonrigid. It is nondistended. The patient only had minor pain with palpation of the right upper quadrant but this appeared to be more related to palpation of his rib cage in this vicinity. There is no rebound tenderness or guarding Musculoskeletal: No calf tenderness. The patient was noted to have a partial amputation of his right great toe. The patient had significant point tenderness with palpation of his right lateral and right anterior lower ribs. Skin: no rashes Neurologic: moves all extremities Psychiatric: A+Ox3, euthymic affect Results & Data Vital Signs (Past 12 Hours) Vital Signs Temp Pulse Pulse Resp BP Pulse Ox O2 Del Method 11/12/22 15:41 Room Air 11/12/22 15:41 36.7 C 95 H 18 99/60 L 95 Room Air 11/12/22 10:56 36.4 C 98 H 18 132/82 98 Room Air 11/12/22 09:13 93 H PG Care Time/CCT Total # of Minutes Spent Total Time Spent with Patient: Total time spent is greater than 50% in coordination of care (as documented) at patient's floor/unit and/or counseling patient: Coding Level of Care Code 62954 IN/OBS CONSULT LVL 5,80M Diagnoses Biliary dyskinesia K82.8
[2022-11-12 20:17] LABS: Troponin I High Sensitivity 28.8 pg/ml (0-20)
[2022-11-12] MEDS: LACTATED RINGER'S 1,000 ML IV SCH (20:40)
[2022-11-12] MEDS ORDERED: METOPROLOL TARTRATE 100 MG TAB PO SCH (21:00)
[2022-11-13] MEDS: INSULIN ASPART PER UNIT CHARGE SC SCH ×4 (00:26→17:32)
--- NOTE | 2022-11-13 06:53 | Hospitalist Progress Note ---
Date of Service November 13, 2022 Assessment & Plan (1) Abdominal pain: (2) Hyperglycemia due to type 2 diabetes mellitus: (3) Elevated troponin: (4) GERD (gastroesophageal reflux disease): (5) Biliary dyskinesia: (6) Chronic heart failure with preserved ejection fraction (HFpEF): (7) Ventricular tachycardia: Plan 57 M with PMH CHF, type 2 diabetes, GERD, who presents with colicky RUQ, epigastric pain. Abdominal pain/ Bilary Dyskinesia -RUQ abdominal at arrival -Advanced his diet today, tolerating well, Denied any post pandrial pain - No nausea vomiting. No leukocytosis. - Lipase LFTs, transaminases normal. Alk phos within normal limit. CT A/P, CT chest negative. -HIDA scan: decreased contractile response of the gallbladder EF 11%. No signs of acute cholecystitis -Surgery consulted: No surgery at the moment. Recommended possible upper endoscopy and potentially GI evaluation Right chest pain/ Rib cage -Rib cage pain that is worse in inspirations. -EKG no ST changes -Elevated troponin: 45.1 on admission. Downtrending (28.8) - CTA: no PE -Chest xray: negative for fracture -Tylenol prn Ventricular tachycardia -30 second run of wide- complex tachycardia -Cardiology consulted today -Magnesium supplement (Slow MAg 64 mg once daily) - Increased metoprolol to 100 BID -Holding Entresto for now, to reassess restarting later of his BP rebounds -Echo: mild aortic stenosis (new compared with old), EF 65-70%, Grade 1 diastolic dysfunction CHF- Grade 1 diastolic dysfunction Chronic, currently compensated Cardiology consult: -Entresto hold for now Uncontrolled DM2 -BSG 381 on admission. S/p Novolin 10 units in the ED. -On basal bolus insulin at home (28 units Lantus twice daily, NovoLog 6 units 3 times daily with meals). - HA1c: 16.2 -Lantus 14 units twice daily; SSI coverage per protocol. Partial amputation Right big toe -Wound care consulted Code: Full code Dispo: PCU/ Telemetry FEN/GI: NPO. DVT Prophylaxis: Heparin 5000 u q12h PT/OT: No Consults: None Case Management: no Admission and Anticipated Discharge Date Admission Date: November 12, 2022 Subjective 57 y/o male with PMH of DM 2, CHF, HTN, GERD and previous kidney stones that arrived to ED due to right sided rib pain, RUQ pain and epigastric pain of 1 day of evolution. Patient refers falling 2 nights ago he fall from bed, the pain started 1 day before admission. Today was evaluated at bedside found AAOx3, in no acute distress. He did mention right lower chest pain, that he describe is in the right lower rib cage worsening in inspiration. He is currently tolerating diet, with no post pandrial pain. He denied any SOB, diziiness, nausea, constipation, or diarrhea. Review of Systems Review of Systems: As per HPI Physical Exam Physical Exam: No chest wall ecchymosis was noted Constitutional: WD/WN, vitals as above Eyes: + anicteric sclerae Wears glasses ENMT: Ears: no hearing impairment and no external ear abnormality No sublingual jaundice noted Neck: trachea midline Respiratory: normal respiratory effort; no respiratory distress and no labored breathing No wheezing Cardiovascular: Rate/Rhythm: regular rate and regular rhythm Gastrointestinal (Abdomen): Abdomen is soft and nonrigid. It is nondistended. The patient only had minor pain with palpation of the right upper quadrant but this appeared to be more related to palpation of his rib cage in this vicinity. There is no rebound tenderness or guarding Musculoskeletal: No calf tenderness. The patient was noted to have a partial amputation of his right great toe. The patient had significant point tenderness with palpation of his right lateral and right anterior lower ribs. Skin: no rashes Neurologic: moves all extremities Psychiatric: A+Ox3, euthymic affect Results & Data Results & Data Vital Signs (Past 12 Hours) Vital Signs Temp Pulse Pulse Resp BP Pulse Ox O2 Del Method 11/13/22 02:55 36.5 C 78 16 106/68 93 Room Air 11/12/22 22:00 99 H 11/12/22 22:56 36.8 C 82 20 100/62 96 Room Air 11/12/22 20:00 Room Air 11/12/22 19:21 37.1 C 109 H 20 119/73 96 Room Air Resident Activity Tracking Resident Involvement: Resident Care Provided Care Provided: Adult [facility] Medicine (1) Abdominal pain Abdominal location: right lower quadrant Qualified Code(s): R10.31 - Right lower quadrant pain
[2022-11-13 07:29] LABS: Basophils # (auto) 0.07 K/uL (0-0.2); Basophils % (auto) 0.9 %; Eosinophils # (auto) 0.23 K/uL (0-0.50); Hematocrit (blood only) 35.7 % (42.0-52.0); Hemoglobin 11.7 g/dl (14.0-18.0); Immature Granulocytes # (auto) 0.02 K/uL (0.01-0.20); Immature Granulocytes % (auto) 0.3 %; Lymphocytes # (auto) 1.57 K/uL (1.2-3.4); Lymphocytes % (auto) 20.2 %; Mean Corpuscular Hemoglobin 28.5 pg (25.0-34.0); Mean Corpuscular Hgb Conc 32.8 g/dL (32.0-36.0); Mean Corpuscular Volume 86.9 fL (80.0-100.0); Monocytes # (auto) 0.69 K/uL (0.11-0.59); Monocytes % (auto) 8.9 %; Neutrophils # (auto) 5.21 K/uL (1.40-6.50); Neutrophils % (auto) 66.7 %; Platelet Count 241 K/uL (130-400); RDW Coefficient of Variation 14.4 % (11.5-14.5); RDW Standard Deviation 45.8 fL (36.4-46.3); Red Blood Count 4.11 M/uL (4.70-6.10); White Blood Count 7.79 K/ul (4.8-10.8)
[2022-11-13 07:44] LABS: BUN Creatinine Ratio 9.9 (10-20); Calcium 8.7 mg/dl (8.6-10.3); Creatinine Clr Calc Pharmacy 88.5 ml/min; Est GFR (African American) 93.9 ml/min; Magnesium 1.8 mg/dl (1.7-2.4); Potassium 4.1 mmol/L (3.5-5.1)
[2022-11-13 08:46] LABS: Estimated Average Glucose 418 mg/dl; Hemoglobin A1C 16.2 % (4.5-5.6)
[2022-11-13] MEDS: LACTATED RINGER'S 1,000 ML IV SCH (09:04)
[2022-11-13] MEDS: GABAPENTIN 600 MG TAB PO SCH (09:25)
[2022-11-13] MEDS: HEPARIN SOD 5,000 UNIT/0.5 ML VIAL SQ SCH (09:25)
[2022-11-13] MEDS: LANTUS PER UNIT CHARGE SQ SCH (09:25)
[2022-11-13] MEDS: METOPROLOL TARTRATE 50 MG TAB PO SCH (09:26)
[2022-11-13] MEDS: VALSARTAN/SACUBITRIL 26/24MG TAB PO SCH (09:26)
[2022-11-13] MEDS: PANTOprazole 40 MG in SYRINGE 0 ML IV SCH (11:54)
--- NOTE | 2022-11-13 11:56 | Surgery Progress Note ---
Date of Service November 13, 2022 Assessment & Plan (1) Biliary dyskinesia: Plan: Patient here with R lower rib pain HIDA obtained yesterday showed low EF, 11%, consistent with biliary dyskinesia WBC 7, LFTs from yesterday are unremarkable Pt appears tender over right lower ribs, not specifically in the abdomen He is tolerating a diet. pain is improving No findings of acute cholecystitis on exam/imaging/labs He may f/u with us as an outpatient to discuss elective cholecystectomy down the road if he has any issues with GB, but no indications for lap jamie necessitated at this time we will sign off, but call back with any questions/concerns Admission and Anticipated Discharge Date Admission Date: November 12, 2022 Supervising Physician Co-Signing Physician Notes I have also seen this patient and agree with this assessment. The patient has been advised to follow-up with the surgeon should he begin to experience biliary like symptoms which were discussed with him. He expressed understanding and again confirms he has never had such symptoms previously. The patient is being discharged. Subjective Patient reports feeling mildly better pain contreras this AM. He is currently tolerating a diet without nausea/vomiting. Reports no issues with post prandial pains. Physical Exam Physical Exam: awake/alert, no distress Respiratory: normal respiratory effort Gastrointestinal (Abdomen): Inspection/Auscultation: abdomen not distended Percussion/Palpation: + abdomen tender (discomfort to palpation over the inferior right ribs, no epigastric/RUQ ttp) and abdomen soft Results & Data Vital Signs (Past 12 Hours) Vital Signs Temp Pulse Pulse Resp BP Pulse Ox O2 Del Method 11/13/22 11:30 36.9 C 77 19 96/54 L 95 Room Air 11/13/22 11:01 80 11/13/22 07:28 37.2 C 79 19 101/58 L 96 Room Air 11/13/22 02:55 36.5 C 78 16 106/68 93 Room Air PG Care Time/CCT Total # of Minutes Spent Total Time Spent with Patient: Total time spent is greater than 50% in coordination of care (as documented) at patient's floor/unit and/or counseling patient: Coding Level of Care Code 16499 SUB INP/OBS CARE 1/25MIN Diagnoses Biliary dyskinesia K82.8
--- NOTE | 2022-11-13 14:56 | Cardiology Consultation ---
Date of Consultation November 13, 2022 Assessment & Plan (1) Ventricular tachycardia: Single but sustained episode of mild asymptomatic ventricular tachycardia yesterday, no recurrence. Magnesium was borderline (1.8) and has been low in the past at times, would recommend adding magnesium supplement (Slow-Mag 64 mg once daily given history of renal insufficiency). Would also increase metoprolol to 100 mg twice daily, since his heart rate has been in the 80 to 90 bpm range he should tolerate this from a rate perspective. However, his BP has been borderline hypotensive, would hold Entresto for now (used for his HFpEF) and reassess restarting this later if his BP rebounds. (2) Chest pain: Chest wall tenderness with stable ECG and declining troponin, no evidence of ongoing myocardial ischemia. No further cardiac work-up in the absence of more characteristic anginal type symptoms, ECG changes, or rising cardiac enzymes. (3) Elevated troponin: See #2. (4) Chronic heart failure with preserved ejection fraction (HFpEF): Compensated currently, monitor volume status closely with history of diastolic dysfunction related heart failure, primarily manifested as leg edema. Plan Outpatient cardiology by Dr. Marsh, if he has ongoing cardiac issues today please contact me, Dr. Harmon will be covering tomorrow (Saturday). History of Present Illness Reason for Consultation: Wide-complex tachycardia Requesting Physician: Makenna Bravo MD Attending Physician: Makenna Bravo MD History of Present Illness 57-year-old man with history of HFpEF, prior history of LVOT dynamic obstruction/JOHN of MV (not seen on 2021 or current echoes), PAD, carotid disease (70-79% left, 60-69% right), DM, GERD, nephrolithiasis, admitted 11/12/2022 with right-sided thoracic and abdominal pain 2 days after falling out of bed on that side, overnight he had a 30 second run of wide-complex tachycardia. Although the patient had fallen several days ago, his discomfort did not start until the evening prior to admission. ECG showed no acute change and troponin was initially 45 and dropped throughout the day to 28. He had definite right lateral chest wall thoracic tenderness. Chest x-ray and chest CT were negative. Although his telemetry rhythm has been predominantly sinus, yesterday during the day he had 30 second run of wide-complex tachycardia, he noted feeling "tense" for 2 or 3 minutes around the time of the symptoms but denied any chest discomfort, subjective palpitations, presyncope, or syncope. No further ectopy overnight and no further new symptoms. At the time of my evaluation, he continued to have some right-sided chest wall/upper abdominal discomfort but had no other somatic complaints. Allergies Allergy/AdvReac Type Severity Reaction Status Date / Time levofloxacin AdvReac Intermediate GI SYMPTOMS Verified 11/12/22 02:03 pneumococcal vaccine AdvReac Intermediate GI Verified 11/12/22 02:03 SYMPTOMS-OK IF MULTIPLE VACCINES GIVEN SEPARATELY tetanus toxoid, adsorbed AdvReac Intermediate TETANUS/DIPTHERIA/PERTUSSIS-GI Verified 11/12/22 02:03 UPSTE/BODY ACHES Home Medications Medication Instructions Recorded Confirmed Type acetaminophen 500 mg tablet 500 - 1,000 mg PO Q8 PRN Pain 01/30/22 11/12/22 History (Tylenol Extra Strength) cyanocobalamin (vitamin B-12) 1,000 mcg PO DAILY 01/30/22 11/12/22 History 1,000 mcg tablet (Vitamin B-12) gabapentin 600 mg tablet 600 mg PO AMHS 01/30/22 11/12/22 History insulin aspart U-100 100 unit/mL 6 unit subcut TIDWMEAL 01/30/22 11/12/22 History (3 mL) subcutaneous pen (Novolog FlexPen U-100 Insulin aspart) insulin glargine 100 unit/mL 28 unit subcut BID 01/30/22 11/12/22 History subcutaneous solution (Lantus U-100 Insulin) metformin 1,000 mg tablet 1,000 mg PO BID 01/30/22 11/12/22 History pantoprazole 40 mg tablet,delayed 40 mg PO QAM 01/30/22 11/12/22 History release potassium chloride 20 mEq 40 meq PO QAM #60 tabs 02/09/22 11/12/22 Rx tablet,extended release(part/cryst) aspirin 81 mg tablet,delayed 81 mg PO DAILY 03/08/22 11/12/22 History release (Adult Aspirin Regimen) cholecalciferol (vitamin D3) 25 25 mcg PO DAILY 03/08/22 11/12/22 History mcg (1,000 unit) capsule furosemide 20 mg tablet 20 mg PO DAILY 11/12/22 11/12/22 History magnesium chloride 64 mg 64 mg PO QAM #30 tabs 11/13/22 Rx (magnesium chloride) tablet,delayed release (Mag 64) metoprolol tartrate 100 mg tablet 100 mg PO BID #60 tabs 11/13/22 Rx Patient History Medical History Acute on chronic congestive heart failure Anxiety and depression Attention deficit disorder (ADD) Bulging lumbar disc Cardiac murmur FOLLOWS WITH DR. MARSH CHF (congestive heart failure) Diabetic peripheral neuropathy associated with type 2 diabetes mellitus DM type 2 (diabetes mellitus, type 2) GERD (gastroesophageal reflux disease) History of amputation of right great toe History of anemia History of kidney stones HTN (hypertension) Hx MRSA infection 2018> resolved Hx of diabetic foot ulcer Hyperlipidemia Infection of prosthetic right knee joint Obesity Obstructive sleep apnea syndrome Osteoarthritis Sleep apnea CPAP Surgical History History of colonoscopy History of open reduction and internal fixation (ORIF) procedure RT HAND History of tooth extraction History of total left knee replacement History of wisdom tooth extraction S/P revision of total knee LEFT Family History Father Family history of diabetes mellitus Other No family history of adverse response to anesthesia No pertinent family history Social History Smoking Status: Never smoker Second Hand Exposure: No; Do You Dip or Chew Tobacco: No; Hx Alcohol Use: Yes Alcohol type: beer Hx Substance Use: No Preferred Language: [place] Communication Ability: Effective Visual Impairment: Limited Computer Architect Required: No Beliefs That Will Affect Care: None marital status: Current Living Situation: Spouse current occupational status: employed 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 Skin: no ecchymoses or generalized lesions. HEENT: unremarkable. Neck: JVP at the clavicle at 90 degrees, no carotid bruits. Lungs: clear. Cardiac: regular rhythm, normal S1-2, 2/6 crescendo/decrescendo systolic ejection murmur right upper sternal border, no diastolic murmur. Abdomen: benign. Extremities: no edema, lower extremity pulses somewhat diminished, amputation distal portion right great toe. Neurologic: normal affect and conversation, nonfocal. Results & Data Vital Signs (Past 12 Hours) Vital Signs Temp Pulse Pulse Resp BP Pulse Ox O2 Del Method 11/13/22 11:30 98.4 F 77 19 96/54 L 95 Room Air 11/13/22 11:01 80 11/13/22 07:28 99.0 F 79 19 101/58 L 96 Room Air 11/13/22 02:55 97.7 F 78 16 106/68 93 Room Air Laboratory Results Serial troponins yesterday 45, 38, 28. Sodium 135, potassium 4.1, magnesium 1.8, BUN 10, creatinine 1.01. Diagnostic Findings Admission ECG showed sinus rhythm at 94 bpm with age-indeterminate septal infarct. Compared with 01/31/2022 study, no significant change. Echocardiogram today showed normal LV size and systolic function with no wall motion abnormalities, moderate LVH, mild aortic stenosis, mild aortic regurgitation, and mild mitral regurgitation. Chest x-ray yesterday showed no acute disease. Chest CT yesterday showed no aortic dissection or pulmonary embolism. PG Care Time/CCT Total # of Minutes Spent Total Time Spent with Patient: Total time spent is greater than 50% in coordination of care (as documented) at patient's floor/unit and/or counseling patient: Coding Level of Care Code 83137 IN/OBS CONSULT LVL 4,60M Diagnoses Ventricular tachycardia I47.20 Chest pain R07.9 Chest pain type: unspecified Elevated troponin R77.8 Chronic heart failure with preserved ejection fraction (HFpEF) I50.32 (2) Chest pain Chest pain type: unspecified Qualified Code(s): R07.9 - Chest pain, unspecified
--- NOTE | 2022-11-13 14:56 | XCELERA ---
[id number]
--- NOTE | 2022-11-13 17:47 | Discharge Summary ---
Date of Service November 13, 2022 Admission HPI Per Admitting Provider Casey is a 57-year-old male with a past medical history of type 2 diabetes, CHF, hypertension, GERD, and previous kidney stones, who presents to the ED with right-sided rib pain, RUQ pain for 1 day. Patient reports falling on his side 2 nights ago, but the pain did not start until last night. Otherwise, he denies shortness of breath, dizziness, nausea, constipation, or diarrhea. In the ED, vitals were notable for mild tachycardia. Labs were notable for glucose-381, and troponin-45.1. Lipase was 8, AST/ALT, and alk phos were all within normal limits. Chest CT was negative, as was CT A/P, for an acute proce ss or abnormality. He received 10 units of Novolin, and IV morphine for pain. Hospitalist service was then consulted for admission. Admission Exam Per Admitting Provider General: No acute distress HEENT: PERRLA. Normal conjunctiva, anicteric sclera. Oropharynx normal. Respiratory: Normal respiratory effort, CTABL. Cardiovascular: RRR without murmurs, gallops, or rubs. No pedal edema. GI: Soft abdomen with normal bowel sounds heard on auscultation. Tenderness to palpation at the right upper quadrant, epigastrium, and left lower quadrant. Neuro: Alert and oriented x3. Principal Diagnosis Biliary Dyskinesia Ventricular Tachycardia Discharge Exam No chest wall ecchymosis was noted Constitutional WD/WN, vitals as above Eyes + anicteric sclerae ENMT Ears: no hearing impairment and no external ear abnormality Neck trachea midline Respiratory normal respiratory effort; no respiratory distress and no labored breathing Cardiovascular Rate/Rhythm: regular rate and regular rhythm Skin no rashes Neurologic moves all extremities Psychiatric A+Ox3, euthymic affect Discharge Data Allergies Allergy/AdvReac Type Severity Reaction Status Date / Time levofloxacin AdvReac Intermediate GI SYMPTOMS Verified 11/12/22 02:03 pneumococcal vaccine AdvReac Intermediate GI Verified 11/12/22 02:03 SYMPTOMS-OK IF MULTIPLE VACCINES GIVEN SEPARATELY tetanus toxoid, adsorbed AdvReac Intermediate TETANUS/DIPTHERIA/PERTUSSIS-GI Verified 11/12/22 02:03 UPSTE/BODY ACHES Consultations 11/12/22 02:35 ED Decision to Admit Stat 11/12/22 15:50 Consult General Surgery Routine 11/12/22 17:11 Consult Cardiology Routine Ordered Studies Labs 11/12/22 11/12/22 11/12/22 00:59 01:01 01:01 WBC 8.75 RBC 4.02 L Hgb 11.4 L POC Hgb 11.9 L Hct 33.6 L POC Hct 35 L MCV 83.6 MCH 28.4 MCHC 33.9 RDW Std Deviation 42.2 RDW Coeff of Monica 13.8 Plt Count 234 MPV 11.4 Immature Gran % (Auto) 0.2 Neut % (Auto) 65.5 Lymph % (Auto) 21.8 Kaufman % (Auto) 10.6 Eos % (Auto) 1.3 Baso % (Auto) 0.6 Neut # (Auto) 5.73 Lymph # (Auto) 1.91 Kaufman # (Auto) 0.93 H Eos # (Auto) 0.11 Baso # (Auto) 0.05 Immature Gran # (Auto) 0.02 VBG pH VBG pCO2 VBG pO2 VBG HCO3 VBG O2 Saturation VBG Base Excess POC Sodium 131 L Sodium 130 L POC Potassium 4.4 Potassium 4.1 POC Chloride 98 L Chloride 96 L Carbon Dioxide 20 L POC Total CO2 19 L Anion Gap 14 H POC Anion Gap 19.0 POC BUN 21 H BUN 19 Creatinine 1.17 POC Creatinine 1.1 Est Cr Clr Drug Dosing 79.2 Est GFR ( Amer) 78.6 Est GFR (Non-Af Amer) 67.8 BUN/Creatinine Ratio 16.2 Glucose 381 H* POC Glucose POC Glucose (other) 385 H* Estimat Average Glucose Hemoglobin A1c Calcium 9.2 POC Ioniz Calcium Elizabeth 1.10 L Magnesium Total Bilirubin 0.6 AST 13 ALT 11 Alkaline Phosphatase 104 Troponin I High Sens 45.1 H Total Protein 6.5 Albumin 3.6 Globulin 2.9 Albumin/Globulin Ratio 1.2 Lipase 8 L Urine Color Urine Appearance Urine pH Ur Specific Minot Urine Protein Urine Glucose (UA) Urine Ketones Urine Blood Urine Nitrite Urine Bilirubin Urine Urobilinogen Ur Leukocyte Esterase Urine WBC (Auto) Urine RBC (Auto) U Hyaline Cast (Auto) U Epithel Cells (Auto) Urine Bacteria (Auto) 11/12/22 11/12/22 11/12/22 02:14 02:14 02:25 WBC RBC Hgb POC Hgb Hct POC Hct MCV MCH MCHC RDW Std Deviation RDW Coeff of Monica Plt Count MPV Immature Gran % (Auto) Neut % (Auto) Lymph % (Auto) Kaufman % (Auto) Eos % (Auto) Baso % (Auto) Neut # (Auto) Lymph # (Auto) Kaufman # (Auto) Eos # (Auto) Baso # (Auto) Immature Gran # (Auto) VBG pH 7.48 H VBG pCO2 29 L VBG pO2 24 VBG HCO3 22 VBG O2 Saturation < 60.0 VBG Base Excess -0.8 POC Sodium Sodium POC Potassium Potassium POC Chloride Chloride Carbon Dioxide POC Total CO2 Anion Gap POC Anion Gap POC BUN BUN Creatinine POC Creatinine Est Cr Clr Drug Dosing Est GFR ( Amer) Est GFR (Non-Af Amer) BUN/Creatinine Ratio Glucose POC Glucose POC Glucose (other) Estimat Average Glucose Hemoglobin A1c Calcium POC Ioniz Calcium Elizabeth Magnesium Total Bilirubin AST ALT Alkaline Phosphatase Troponin I High Sens 38.5 H Total Protein Albumin Globulin Albumin/Globulin Ratio Lipase Urine Color Yellow Urine Appearance Clear Urine pH 7.5 Ur Specific Minot 1.023 Urine Protein 1+ H Urine Glucose (UA) 3+ H Urine Ketones 1+ H Urine Blood Negative Urine Nitrite Negative Urine Bilirubin Negative Urine Urobilinogen Negative Ur Leukocyte Esterase Negative Urine WBC (Auto) 0 Urine RBC (Auto) 0-4 U Hyaline Cast (Auto) 0 U Epithel Cells (Auto) 0-5 Urine Bacteria (Auto) Negative 11/12/22 11/12/22 11/12/22 03:11 09:13 15:32 WBC RBC Hgb POC Hgb Hct POC Hct MCV MCH MCHC RDW Std Deviation RDW Coeff of Monica Plt Count MPV Immature Gran % (Auto) Neut % (Auto) Lymph % (Auto) Kaufman % (Auto) Eos % (Auto) Baso % (Auto) Neut # (Auto) Lymph # (Auto) Kaufman # (Auto) Eos # (Auto) Baso # (Auto) Immature Gran # (Auto) VBG pH VBG pCO2 VBG pO2 VBG HCO3 VBG O2 Saturation VBG Base Excess POC Sodium Sodium POC Potassium Potassium POC Chloride Chloride Carbon Dioxide POC Total CO2 Anion Gap POC Anion Gap POC BUN BUN Creatinine POC Creatinine Est Cr Clr Drug Dosing Est GFR ( Amer) Est GFR (Non-Af Amer) BUN/Creatinine Ratio Glucose POC Glucose 301 H* 276 H 172 H POC Glucose (other) Estimat Average Glucose Hemoglobin A1c Calcium POC Ioniz Calcium Elizabeth Magnesium Total Bilirubin AST ALT Alkaline Phosphatase Troponin I High Sens Total Protein Albumin Globulin Albumin/Globulin Ratio Lipase Urine Color Urine Appearance Urine pH Ur Specific [place] Urine Protein Urine Glucose (UA) Urine Ketones Urine Blood Urine Nitrite Urine Bilirubin Urine Urobilinogen Ur Leukocyte Esterase Urine WBC (Auto) Urine RBC (Auto) U Hyaline Cast (Auto) U Epithel Cells (Auto) Urine Bacteria (Auto) 11/12/22 11/12/22 11/13/22 17:32 20:40 06:08 WBC RBC Hgb POC Hgb Hct POC Hct MCV MCH MCHC RDW Std Deviation RDW Coeff of Monica Plt Count MPV Immature Gran % (Auto) Neut % (Auto) Lymph % (Auto) Kaufman % (Auto) Eos % (Auto) Baso % (Auto) Neut # (Auto) Lymph # (Auto) Kaufman # (Auto) Eos # (Auto) Baso # (Auto) Immature Gran # (Auto) VBG pH VBG pCO2 VBG pO2 VBG HCO3 VBG O2 Saturation VBG Base Excess POC Sodium Sodium 135 L POC Potassium Potassium 3.8 POC Chloride Chloride 102 Carbon Dioxide 26 POC Total CO2 Anion Gap 7 POC Anion Gap POC BUN BUN 12 Creatinine 0.97 POC Creatinine Est Cr Clr Drug Dosing 92.2 Est GFR ( Amer) 98.6 Est GFR (Non-Af Amer) 85.1 BUN/Creatinine Ratio 12.4 Glucose 167 H POC Glucose 160 H 147 H POC Glucose (other) Estimat Average Glucose Hemoglobin A1c Calcium 8.7 POC Ioniz Calcium Elizabeth Magnesium 1.8 Total Bilirubin AST ALT Alkaline Phosphatase Troponin I High Sens 28.8 H Total Protein Albumin Globulin Albumin/Globulin Ratio Lipase Urine Color Urine Appearance Urine pH Ur Specific [place] Urine Protein Urine Glucose (UA) Urine Ketones Urine Blood Urine Nitrite Urine Bilirubin Urine Urobilinogen Ur Leukocyte Esterase Urine WBC (Auto) Urine RBC (Auto) U Hyaline Cast (Auto) U Epithel Cells (Auto) Urine Bacteria (Auto) 11/13/22 11/13/22 11/13/22 07:06 07:06 07:06 WBC 7.79 RBC 4.11 L Hgb 11.7 L POC Hgb Hct 35.7 L POC Hct MCV 86.9 MCH 28.5 MCHC 32.8 RDW Std Deviation 45.8 RDW Coeff of Monica 14.4 Plt Count 241 MPV 11.0 Immature Gran % (Auto) 0.3 Neut % (Auto) 66.7 Lymph % (Auto) 20.2 Kaufman % (Auto) 8.9 Eos % (Auto) 3.0 Baso % (Auto) 0.9 Neut # (Auto) 5.21 Lymph # (Auto) 1.57 Kaufman # (Auto) 0.69 H Eos # (Auto) 0.23 Baso # (Auto) 0.07 Immature Gran # (Auto) 0.02 VBG pH VBG pCO2 VBG pO2 VBG HCO3 VBG O2 Saturation VBG Base Excess POC Sodium Sodium 135 L POC Potassium Potassium 4.1 POC Chloride Chloride 102 Carbon Dioxide 27 POC Total CO2 Anion Gap 6 POC Anion Gap POC BUN BUN 10 Creatinine 1.01 POC Creatinine Est Cr Clr Drug Dosing 88.5 Est GFR ( Amer) 93.9 Est GFR (Non-Af Amer) 81.0 BUN/Creatinine Ratio 9.9 L Glucose 171 H POC Glucose POC Glucose (other) Estimat Average Glucose 418 Hemoglobin A1c 16.2 H Calcium 8.7 POC Ioniz Calcium Elizabeth Magnesium 1.8 Total Bilirubin AST ALT Alkaline Phosphatase Troponin I High Sens Total Protein Albumin Globulin Albumin/Globulin Ratio Lipase Urine Color Urine Appearance Urine pH Ur Specific [place] Urine Protein Urine Glucose (UA) Urine Ketones Urine Blood Urine Nitrite Urine Bilirubin Urine Urobilinogen Ur Leukocyte Esterase Urine WBC (Auto) Urine RBC (Auto) U Hyaline Cast (Auto) U Epithel Cells (Auto) Urine Bacteria (Auto) 11/13/22 11/13/22 11:36 16:17 WBC RBC Hgb POC Hgb Hct POC Hct MCV MCH MCHC RDW Std Deviation RDW Coeff of Monica Plt Count MPV Immature Gran % (Auto) Neut % (Auto) Lymph % (Auto) Kaufman % (Auto) Eos % (Auto) Baso % (Auto) Neut # (Auto) Lymph # (Auto) Kaufman # (Auto) Eos # (Auto) Baso # (Auto) Immature Gran # (Auto) VBG pH VBG pCO2 VBG pO2 VBG HCO3 VBG O2 Saturation VBG Base Excess POC Sodium Sodium POC Potassium Potassium POC Chloride Chloride Carbon Dioxide POC Total CO2 Anion Gap POC Anion Gap POC BUN BUN Creatinine POC Creatinine Est Cr Clr Drug Dosing Est GFR ( Amer) Est GFR (Non-Af Amer) BUN/Creatinine Ratio Glucose POC Glucose 181 H 202 H POC Glucose (other) Estimat Average Glucose Hemoglobin A1c Calcium POC Ioniz Calcium Elizabeth Magnesium Total Bilirubin AST ALT Alkaline Phosphatase Troponin I High Sens Total Protein Albumin Globulin Albumin/Globulin Ratio Lipase Urine Color Urine Appearance Urine pH Ur Specific [place] Urine Protein Urine Glucose (UA) Urine Ketones Urine Blood Urine Nitrite Urine Bilirubin Urine Urobilinogen Ur Leukocyte Esterase Urine WBC (Auto) Urine RBC (Auto) U Hyaline Cast (Auto) U Epithel Cells (Auto) Urine Bacteria (Auto) Abdomen/Pelvis CT 11/12/22 00:45 Exam(s): CT ABDOMEN + PELVIS With Contrast IV Amt: 117 ML OPTIRAY 350 EXAM: CT Abdomen and Pelvis With Intravenous Contrast CLINICAL HISTORY: Fall. TECHNIQUE: Axial computed tomography images of the abdomen and pelvis with intravenous contrast. CTDI is 19.47 mGy and DLP is 1008.25 mGy-cm. Automated exposure control was utilized for the study. A dose lowering technique was utilized adhering to the principles of ALARA. CONTRAST: Patient received 117 ML OPTIRAY 350 of IV contrast COMPARISON: CT abdomen and pelvis 11/02/2021 FINDINGS: Lung bases: Unremarkable. No mass. No consolidation. There is elevation of the left hemidiaphragm. ABDOMEN: Liver: Unremarkable. No mass. Gallbladder and bile ducts: Unremarkable. No calcified stones. No ductal dilation. Pancreas: Unremarkable. No mass. No ductal dilation. Spleen: Unremarkable. No splenomegaly. Adrenals: Unremarkable. No mass. Kidneys and ureters: Unremarkable. No solid mass. No hydronephrosis. Stomach and bowel: Unremarkable. No obstruction. No mucosal thickening. PELVIS: Appendix: Normal appendix. Bladder: Unremarkable. No mass. Reproductive: Unremarkable as visualized. ABDOMEN and PELVIS: Intraperitoneal space: Unremarkable. No free air. No significant fluid collection. Bones/joints: There are degenerative changes of the spine. No acute fracture. No dislocation. Soft tissues: There is thickening of the anterior abdominal wall dermis adjacent to the umbilicus. Vasculature: Mild atherosclerosis. No abdominal aortic aneurysm. Lymph nodes: Unremarkable. No enlarged lymph nodes. IMPRESSION: There is thickening of the anterior abdominal wall dermis adjacent to the umbilicus. This may be infectious or inflammatory. Otherwise, no acute finding. Electronically signed by: Milly Schmidt MD 11/12/22 02:29 AM Chest X-Ray 11/12/22 00:45 XR chest 1V portable CLINICAL HISTORY: Chest pain, nonspecific TECHNIQUE: Single frontal radiograph of the chest was obtained. Comparison: None available at the time of this dictation. FINDINGS: No lines and tubes are seen. The cardiomediastinal silhouette is normal. The lungs are clear. No evidence of pleural effusion or pneumothorax. IMPRESSION: No acute chest disease. ACT 112: Negative or not required by law. Electronically signed by: Carl Deras M.D. 11/12/2022 6:59 AM Chest CTA 11/12/22 00:46 Exam(s): CTA CHEST IV Amt: 117 ML OPTIRAY 350 EXAM: CT Angiography Chest With Intravenous Contrast CLINICAL HISTORY: Chest pain. TECHNIQUE: Axial computed tomographic angiography images of the chest with intravenous contrast. CTDI is 22.5 mGy and DLP is 771.66 mGy-cm. Automated exposure control was utilized for the study. A dose lowering technique was utilized adhering to the principles of ALARA. MIP reconstructed images were created and reviewed. COMPARISON: No relevant prior studies available. FINDINGS: Pulmonary arteries: Unremarkable. No pulmonary embolus. Aorta: No acute findings. No thoracic aortic aneurysm. Lungs: Unremarkable. No mass. No consolidation. Pleural space: Unremarkable. No significant effusion. No pneumothorax. Heart: Unremarkable. No cardiomegaly. No significant pericardial effusion. No evidence of RV dysfunction. Bones/joints: Minimal atherosclerosis. No aneurysm or dissection. Degenerative. No acute fracture. No dislocation. Soft tissues: Unremarkable. Lymph nodes: Unremarkable. No enlarged lymph nodes. IMPRESSION: No pulmonary embolus. Electronically signed by: Milly Schmidt MD 11/12/22 02:27 AM Hepatobiliary Scan Nuclear Medicine 11/12/22 04:00 NM hepatobiliary EF CLINICAL HISTORY: 57 years-old Male with RUQ pain. Acute right upper quadrant abdominal pain TECHNIQUE: Following the intravenous administration of 5.0 mCi of technetium- 99m Choletec, sequential abdominal images were obtained. In order to evaluate the contractile response of the gallbladder, 1.9 mcg of Kinevac was administered by slow intravenous infusion over 30 min starting approximately 60 min after the administration of the radiopharmaceutical. Sequential imaging was continued for 45 min after the start of the Kinevac infusion. COMPARISON: CT 11/12/2022 FINDINGS: There is prompt, uniform accumulation of the tracer by the liver. There is normal filling of the intrahepatic ducts, common bile duct and gallbladder and normal excretion of the tracer into the duodenum. There is suboptimal contraction of the gallbladder. The calculated gallbladder ejection fraction is 11% (normal >40%). There is mild enterogastric reflux. IMPRESSION: 1. Decreased contractile response of the gallbladder to Kinevac infusion. 2. Mild enterogastric reflux. ACT 112: Negative or not required by law. The above report was generated using voice recognition software. It may contain grammatical, syntax or spelling errors. Electronically signed by: Gus Haider M.D. 11/12/2022 3:10 PM 11/12/22 00:45 CT Abd and Pelvis [CT abd pelvis IV con only] Stat 11/12/22 00:46 CT angio chest PE protocol Stat Diabetes Follow up Diabetes Follow-up Needed for HgbA1c >9% Hospital Course (1) Abdominal pain: (2) Hyperglycemia due to type 2 diabetes mellitus: (3) Elevated troponin: (4) GERD (gastroesophageal reflux disease): (5) Biliary dyskinesia: (6) Chronic heart failure with preserved ejection fraction (HFpEF): (7) Ventricular tachycardia: Plan 57 y/o male with PMH of DM 2, CHF, HTN, GERD and previous kidney stones that arrived to ED due to right sided rib pain, RUQ pain and epigastric pain of 1 day of evolution. Patient refers, 2 nights ago he fall from his bedbut the pain started 1 day before admission. He did mention right lower chest pain, that he described is in the right lower rib cage worsening in inspiration. CT abdomen/pelvis with no acute findings. Chest xray and CTA were both negative, no acute findings, no PEs. HIDA showed calculated gallbladder ejection fraction is 11%( normal is >40%) Surgery was consulted, no emergent surgery at the moment and recommended EDG and GI consult outpatient. During the stay patient develop wide complex tachycardia. Echocardiogram showed EF 65-70%, Grade I diastolic dysfunction and mild aortic stenosis. Cardiology was consulted - recommended increase Metoprolol to 100 mg BID (from once a day) and to hold Entresto since his blood pressure was running low.. It is important to follow up with Cardiology PCP to reassess medication use. EKG with no ST changes. High troponin at admission (45.1), declining after initial. Additionally, patient arrived here with hyperglycemia of 381 on admission. His HgbA1c was 16.2%.He was managed here with Lantus 14 BID and SSI coverage per protocol. Medicine adherence was discussed today, he refers feeling overwhelmed with all medication she is currently on. He refers feeling down and doesn't take the medication as prescribed to him. Discussed compliance with medication. He denied any suicidal and homicidal thoughts. He was strongly encourage to follow depression topic on his next PCP visit. Plan was explained to patient as well of importance of follow with PCP within a week, as well follow up with Cardiology and set up referral with Gastroenterology for evaluation of HIDA scan results and further work up. Total Time Total Time Spent Total Time Spent (In Minutes): see attending attestation Discharge Plan Discharge Items Patient Disposition: Home - Self-Care Reason For Visit: RIGHT SIDED ABDOMINAL PAIN Discharge Diagnosis: Bilary Dyskinesia Condition on Discharge: Good Activity: Resume your previous activity Non-emergency contact: Primary Care Provider Call non-emergency contact if: you have any medication questions and your pain is concerning for you Follow-up/Referrals: Dino Johnson MD [Primary Care Provider] - (patients will make follow up appointment.) Harrison Jacques DO [Physician] - (patients will make follow up appointment. ) Diet: Heart Healthy Addtl Attending Provider Instructions: You were in the hospital due to right sided rib pain and RUQ pain. After imaging evaluation you were found with Biliary dyskinesia (a functional disorder that affect the gall bladder) Surgery evaluated you during your stay and did not recommended emergent surgery at the moment. While you were here, wide complex tachycardia were noted. Cardiology was consulted. Echocardiogram was performed that showed Grade I diastolic dysfunction, and new mild aortic stenosis. As per Cardiology, Metoprolol dose was increased to 100 mg twice a day and will hold Entresto (used for your heart failure medicine) for now. It is important to follow with your Cardiology outpatient to re-assess on medication. Additional, during your stay you were found with low magnesium levels. As per Cardiology recommendation we will add Slow-Mag 64 mg once daily. We recommended to follow with GI outpatient, as well endoscopy by them. Follow up with Surgery out patient for consideration for elective cholecystectomy We recommended to follow with your PCP within a week New medication Metoprolol 100 mg twice a day HOLD Entresto for now, until follow up with PCP and Cardiology Slow-Mag 64 mg once daily Continue these medications: Aspirin 81 mg daily Vitamin D Vitamin B12 Furosemide 20 mg Gabapentin 600 mg Insulin management: 28 units Lantus kayley a day 6 units Sarina Log with meals Metformin 1,000 mg Pending Studies at Discharge: No Stand-Alone Forms: My [facility], Smoking Cessation Medications and DC Order Prescriptions: New metoprolol tartrate 100 mg Tablet 100 mg PO BID Qty: 60 1RF Mag 64 64 mg Tablet,Delayed Release (Dr/Ec) 64 mg PO QAM Qty: 30 1RF bupropion HCl [Wellbutrin SR] 200 mg tablet sustained-release 12 hr 300 mg PO DAILY Qty: 30 1RF metoprolol tartrate 100 mg tablet 100 mg PO BID Qty: 60 0RF Continued aspirin [Adult Aspirin Regimen] 81 mg tablet,delayed release (DR/EC) 81 mg PO DAILY cholecalciferol (vitamin D3) 25 mcg (1,000 unit) capsule 25 mcg PO DAILY gabapentin 600 mg Tablet 600 mg PO AMHS insulin glargine [Lantus U-100 Insulin] 100 unit/mL Solution 28 unit SUBCUT BID cyanocobalamin (vitamin B-12) [Vitamin B-12] 1,000 mcg Tablet 1,000 mcg PO DAILY acetaminophen [Tylenol Extra Strength] 500 mg Tablet 500 - 1,000 mg PO Q8 PRN (Reason: Pain) pantoprazole 40 mg tablet,delayed release (DR/EC) 40 mg PO QAM metformin 1,000 mg tablet 1,000 mg PO BID insulin aspart U-100 [Novolog FlexPen U-100 Insulin] 100 unit/mL (3 mL) insulin pen 6 unit SUBCUT TIDWMEAL potassium chloride 20 mEq Tablet,Er Particles/Crystals 40 meq PO QAM Qty: 60 0RF furosemide 20 mg tablet 20 mg PO DAILY Discontinued metoprolol tartrate 100 mg tablet See Rx Instructions .ROUTE .COMPLEX Rx Instructions: TAKES 50 MG QAM, THEN 100 MG QPM. Entresto 24-26 mg tablet 1 tab PO BID Discharge Orders: Discharge Order (Routine); Ordered 11/13/22 Ordered By: Stacy Kim/Other Patient Handouts: High Blood Sugar (Hyperglycemia), Managing Type 2 Diabetes Admission Data Admit Date/Time: 11/12/22 03:15 Attending Provider: Makenna Bravo Admit Provider: Catarina Ann Primary Care Provider: Dino Johnson Other Providers: Quentin Gray ; Harrison Jacques ; Efrem Duenas Other Interventions: Discharge Summary Assessment (RN) Last Done: 11/13/22 18:06 Supervising Physician Co-Signing Physician Notes Resident Physician Supervision Note: I independently interviewed and examined the patient and verified the lei history and physical, reviewed labs and image studies and agree with resident findings and care plan.
[2022-11-13] MEDS ORDERED: METOPROLOL TARTRATE 100 MG TAB PO SCH (21:00)
[2022-11-14] MEDS ORDERED: MAGNESIUM CHLORIDE W/CALCIUM 64MG DELAYED REL TAB PO SCH (09:00)
== END 2022-11-13 19:11 | disposition home or self-care (01) ==
LOC: EDINP 00:23 → ED 00:23 → SUATTDRO 03:15 → 2S 13:25

== ENCOUNTER 2023-03-05 15:04 | Inpatient (IN) ==
[2023-03-05] MEDS ORDERED: SODIUM CHLORIDE 0.9% 500 ML IV ONE (15:11)
--- NOTE | 2023-03-05 15:11 | ED Triage Note ---
Date of Service March 05, 2023 Provider in Triage Author: Tabatha Arrieta History of Present Illness This patient was briefly evaluated while in triage. An abbreviated physical exam was performed. This patient is a 57-year-old Male who presents to the ED for evaluation of "my foot." Pt. states his right foot is black, misshapen, and blistered "baseball sized blisters." Pt. denies any pain unless it's touched. Was referred by bridge attacher. Dr. Maciel referred here. Referral note that he needs BKA and is known diabetic. Physical Exam VITALS: Vitals are noted on the nurse's note and reviewed by myself. GENERAL: This is a 57 year old male, in no acute distress, nondiaphoretic, well- developed well-nourished. SKIN: No obvious/visible rashes, edema, erythema HEAD: Normocephalic atraumatic. EYES: Conjunctivae without injection, sclerae without icterus. NECK: No JVD. LUNGS: No retractions or accessory muscle use. Marko bandage in place on right foot. MUSCULOSKELETAL: Presents in a wheelchair. NEURO: Patient was alert and oriented to person place and time. No focal neurological deficits. Initial orders for labs and / or imaging were placed and patient was placed in the waiting area until a bed is available. Please see further documentation for the full ED course.
[2023-03-05 16:08] LABS: Basophils # (auto) 0.05 K/uL (0.00-0.20); Basophils % (auto) 0.8 %; Eosinophils # (auto) 0.09 K/uL (0.00-0.50); Eosinophils % (auto) 1.4 %; Hematocrit (blood only) 37.9 % (42.0-52.0); Hemoglobin 12.6 g/dl (14.0-18.0); Immature Granulocytes # (auto) 0.03 K/uL (0.01-0.20); Immature Granulocytes % (auto) 0.5 %; Lymphocytes # (auto) 1.13 K/uL (1.20-3.40); Lymphocytes % (auto) 17.3 %; Mean Corpuscular Hemoglobin 27.9 pg (25.0-34.0); Mean Corpuscular Hgb Conc 33.2 g/dL (32.0-36.0); Mean Platelet Volume 10.6 fL (9.4-12.4); Monocytes # (auto) 0.77 K/uL (0.11-0.59); Monocytes % (auto) 11.8 %; Neutrophils # (auto) 4.48 K/uL (1.40-6.50); Neutrophils % (auto) 68.2 %; Platelet Count 299 K/uL (130-400); RDW Coefficient of Variation 12.8 % (11.5-14.5); Red Blood Count 4.51 M/uL (4.70-6.10); White Blood Count 6.55 K/ul (4.8-10.8)
[2023-03-05] MEDS ORDERED: cefTRIAXone SODIUM 2,000 MG/50 ML BAG IV STA (16:25)
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
[2023-03-05 16:35] LABS: Alanine Aminotransferase 14 U/L (7-52); Albumin Globulin Ratio 0.9 (0.9-2); Albumin Level 3.5 gm/dl (3.4-5.0); Alkaline Phosphatase 131 U/L (34-104); Anion Gap 10 (3-11); Aspartate Aminotransferase 21 U/L (13-39); BUN Creatinine Ratio 13.9 (10-20); Bilirubin,Total 0.5 mg/dl (0.2-1.0); Blood Urea Nitrogen 24 mg/dl (6-23); C Reactive Protein 9.31 mg/dl (0-0.5); Calcium 9.6 mg/dl (8.6-10.3); Carbon Dioxide 24 mmol/L (21-32); Chloride 93 mmol/L (98-107); Est GFR (Non-African American) 42.3 ml/min; Globulin 3.7 gm/dl (2.5-4.0); Glucose 507 mg/dl (70-99(Fasting)); Potassium 3.5 mmol/L (3.5-5.1); Sodium 127 mmol/L (136-145); Total Protein 7.2 gm/dl (6.0-8.3)
[2023-03-05] MEDS ORDERED: SODIUM CHLORIDE 0.9% 1,000 ML IV ONE (16:41)
[2023-03-05] MEDS ORDERED: NovoLIN-R INSULIN PER UNIT CHARGE IV STA ×2 (16:41→18:58)
--- NOTE | 2023-03-05 17:50 | History & Physical Report ---
Date of Service March 05, 2023 Assessment & Plan (1) Right foot infection: Plan: -Admit to med/tele -Currently stable and with pain controlled at rest -Presented to the ED today with acute onset of right foot swelling, erythema, and necrotic right second/third toes -Xray of the right foot is negative for signs of OM or signs of gas -Exam findings are concerning for acute infection with necrosis requiring amputation for source control -S/P one dose of Ceftriaxone and 1.5L NSS in the ED -Will broaden coverage to Cefepime, flagyl, and daptomycin for now -Will obtain blood cultures and culture of the open wound -Consulted and spoke with Dr. Garcia of Podiatry, appreciate his assistance >Agrees with broad spectrum abx >Will take him to the OR tomorrow for amputation and deep wound cultures -Will obtain MRI of the right foot w/wo con for further assessment -Will given an additional 1L Normosol on admission -NPO at midnight -Tylenol and dilaudid for pain control -Will hold chemical DVT PPX tonight in preparation for the OR tomorrow -Will obtain ECG and Chest xray for pre-operative clearance -HH/DMII diet until midnight -AM CBC, CMP, Mag, PT/INR (2) KIMMIE (acute kidney injury): Plan: -Cr today is 1.7, baseline appears near 1.0 -Patient denies reduction in urine output recently -Will obtain UA and renal US for further assessment -Will give an additional 1L Normosol on admission for hydration -Monitor urine output q6h, avoid nephrotoxic agents -Monitor daily renal function -Will hold lasix, metformin for now (3) Uncontrolled type 2 diabetes mellitus with hyperglycemia, with long-term current use of insulin: Plan: -Patient presented with BSG in the 500's -AG WNL, bicarb WNL, no sign of acidosis -Patient states he did not take his insulin this am -S/P 10 units IV insulin in the ED -Repeat BSG on admission at 343 -Will give another 10 units IV insulin now -Start 10 units BID lantus -Monitor BSG q6h overnight, goal is 110-140 -Start CF of 50 and CR of 15 -HH/DMII diet until midnight then NPO -Adjust regimen as needed (4) Chronic heart failure with preserved ejection fraction (HFpEF): Plan: -Appears euvolemic on exam -Will hold lasix in the naty-operative period -Monitor volume status moving forward (5) Sleep apnea: Plan: -HS CPAP/Bipap ordered (6) PAD (peripheral artery disease): Plan: -Will continue aspirin (7) Hypertension: Plan: -Stable -Can continue metoprolol -Will hold lasix with kimmie and to avoid hypotension with current infection Plan The patient was discussed with Dr. Lopez at the time of the admission History of Present Illness Chief Complaint: Concern for right foot infection Primary Care Provider: Kaushal Johnson MD Casey is a 57 year old male with a PMH significant for DMII, HFpEF, LVOT (dynamic obstruction/JOHN of MV (not seen on 2021 or recent echos), PAD, carotid disease (70-79% left, 60-69% right), L knee streptococcal TKA s/p revision 2018 previously on oral suppressive cephalexin, admission last year for Serratia L knee PJI and bacteremia s/p total explant and spacer (01/03/22), hypertension, and GERD who was sent to the [facility] ED from his [place] [facility] office due to concerns for necrotic right foot wound and possible need for amputation. He remained stable while in the ED. Labs were significant for a WBC WNL, ESR of 48, CRP of 9.31, glucose of 503, corrected sodium of 134, Cr of 1.73 (baseline is near 1.0). Xray of the right foot was read as "1. No acute fracture within the right foot. No radiographic evidence for acute osteomyelitis. 2. Medial right foot soft tissue swelling with possible large blister. 3. Status post right first toe amputation. 4. Extensive vascular calcification.". Prior to admission the patient was given 10 units IV insulin, 1.5L NSS, and a dose of Ceftriaxone. At the time of the exam the patient was lying in bed in no acute distress. He states that he woke up this am in his normal state of health. He already had socks on from last night so he did not see his right foot changes immediately. He later checked his feet and noticed the significant right medial blister and blackened right second and third toes. He states that his foot did not look like that yesterday. He states that his right first toe was amputated by Dr. Chow approximately 2 years ago. He is currently pain free in the right foot unless it is palpated. He denies recent fever, chest pain, SOB, cough, abd pain, nausea, vomiting, diarrhea, dysuria, decreased urine output, hematuria, melena, and recent trauma. I explained that Podiatry will be taking him to the OR tomorrow morning for at least a partial amputation of his right foot, final decisions will be discussed between he and Podiatry tomorrow; he expressed understanding. Please refer to Dr. Lopez's attestation for any changes to the treatment plan. Allergies Allergy/AdvReac Type Severity Reaction Status Date / Time levofloxacin AdvReac Intermediate GI SYMPTOMS Verified 02/01/23 13:37 pneumococcal vaccine AdvReac Intermediate GI Verified 02/01/23 13:37 SYMPTOMS-OK IF MULTIPLE VACCINES GIVEN SEPARATELY tetanus toxoid, adsorbed AdvReac Intermediate TETANUS/DIPTHERIA/PERTUSSIS-GI Verified 02/01/23 13:37 UPSTE/BODY ACHES Home Medications Medication Instructions Recorded Confirmed Type acetaminophen 500 mg tablet 500 - 1,000 mg PO Q8 PRN Pain 01/30/22 03/05/23 History (Tylenol Extra Strength) cyanocobalamin (vitamin B-12) 1,000 mcg PO QAM 01/30/22 03/05/23 History 1,000 mcg tablet (Vitamin B-12) gabapentin 600 mg tablet 600 mg PO AMHS 01/30/22 03/05/23 History metformin 1,000 mg tablet 1,000 mg PO BID 01/30/22 03/05/23 History pantoprazole 40 mg tablet,delayed 40 mg PO QAM 01/30/22 03/05/23 History release potassium chloride 20 mEq 40 meq (2 x 20 mEq) PO QAM #60 tabs 02/09/22 03/05/23 Rx tablet,extended release(part/cryst) aspirin 81 mg tablet,delayed 81 mg PO DAILY 03/08/22 03/05/23 History release (Adult Aspirin Regimen) cholecalciferol (vitamin D3) 25 25 mcg PO QAM 03/08/22 03/05/23 History mcg (1,000 unit) capsule furosemide 20 mg tablet 20 mg PO QAM 11/12/22 03/05/23 History magnesium chloride 64 mg 64 mg PO QAM #30 tabs 11/13/22 03/05/23 Rx (magnesium chloride) tablet,delayed release (Mag 64) metoprolol tartrate 100 mg tablet 100 mg PO BID #60 tabs 11/13/22 03/05/23 Rx blood sugar diagnostic 12/07/22 02/01/23 History blood-glucose sensor (Dexcom G6 12/07/22 02/01/23 History Sensor device) insulin aspar prot-insulin aspart See Rx Instructions subcut BID #60 12/07/22 03/05/23 Rx 100 unit/mL (70-30) subcutaneous mL pen (Novolog Mix 70-30FlexPen U-100) pen needle, diabetic 32 gauge x 12/07/22 02/01/23 History 5/32" (BD Ultra-Fine Fanny Pen Needle) rosuvastatin 40 mg tablet 40 mg PO QAM 12/07/22 03/05/23 History BiPap Machine 03/05/23 03/05/23 History bupropion HCl 200 mg tablet,12 hr 300 mg PO QAM 03/05/23 03/05/23 History sustained-release (Wellbutrin SR) cephalexin 500 mg capsule 500 mg PO Q6H #120 caps 03/13/23 Rx insulin aspart U-100 100 unit/mL 25 unit (0.25 mL) SC ACHS 30 days 03/13/23 Rx subcutaneous solution (Novolog #10 mL U-100 Insulin aspart) insulin glargine 100 unit/mL (3 30 unit (0.3 mL) subcut BID #15 mL 03/13/23 Rx mL) subcutaneous pen (Lantus Solostar U-100 Insulin) Past Med/Surg History Medical History KIMMIE (acute kidney injury) Acute hyperglycemia Elevated troponin Elevated LFTs Gram-negative bacteremia Infection of total left knee replacement Leg swelling Fatigue Venous stasis ulcer Diabetic ulcer of left heel Seizure-like activity History of infection of total joint prosthesis of knee GERD (gastroesophageal reflux disease) Hx MRSA infection 2018> resolved Hx of diabetic foot ulcer Bulging lumbar disc GERD (gastroesophageal reflux disease) History of anemia Attention deficit disorder (ADD) Anxiety and depression History of kidney stones Cardiac murmur FOLLOWS WITH DR. GREENWOOD Serum potassium elevated Osteoarthritis Sleep apnea CPAP Acute on chronic congestive heart failure CHF (congestive heart failure) Obstructive sleep apnea syndrome Hyperlipidemia HTN (hypertension) Acute diastolic congestive heart failure Infection of prosthetic right knee joint Hypokalemia Streptococcal sepsis Hypophosphatemia Hyponatremia Ulcer of left midfoot Acquired bilateral hammer toes Callus Diabetic ulcer of left foot Cellulitis of left leg Pleural effusion DM type 2 (diabetes mellitus, type 2) Acquired claw toe of right foot Testicular pain Low back pain with sciatica History of diabetic ulcer of foot Dysesthesia Diabetic peripheral neuropathy associated with type 2 diabetes mellitus Surgical History History of tooth extraction History of open reduction and internal fixation (ORIF) procedure RT HAND S/P revision of total knee LEFT History of total left knee replacement History of revision of total replacement of knee joint (05/23/12) Amputated great toe of right foot History of colonoscopy History of wisdom tooth extraction Family History Father Family history of diabetes mellitus Other No family history of adverse response to anesthesia No pertinent family history Social History Smoking Status: Never smoker Second Hand Exposure: Yes; Do You Dip or Chew Tobacco: No; Hx Alcohol Use: No Hx Substance Use: No Preferred Language: Icelandic Communication Ability: Effective Visual Impairment: Limited Steam Trap Man Required: No Beliefs That Will Affect Care: None marital status: Current Living Situation: Spouse and Family current occupational status: employed current occupation: [employer] , 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 How many Children do You have: 2 Feels Safe at Home: Yes Safety Concerns: Feels Safe At This Time Diet: diabetic during the past year weight has: remained stable Assistive Devices: Glasses and Walker Physical Exam 2 Physical Exam: Physical Exam: General: In no acute distress, stated age, chronically ill appearing but non- toxic HEENT: Normocephalic, atraumatic, no scleral icterus, pupils around round, symmetrical, and reactive to light, moist mucus membranes, trachea midline, no thyromegaly Chest/Pulm: No respiratory distress, symmetrical chest expansion, clear breath sounds throughout Cardiac: RRR, no murmurs noted Abdomen: Negative for ascites and bruising, normoactive bowel sounds, soft, non-tender to palpation throughout Musculoskeletal: Patient with previous right great toe amputation; right foot is swollen and erythematous with concern for ischemic right second and third toes, large blister running the length of the medial aspect of the right foot, Extremities: Radial, dorsalis pedis, and posterior tibial pulses are intact, brisk and symmetrical on bedside doppler , 1+ edema in the BL LE's. Skin: as described above; also see attached pictures Neuro: Alert and oriented to person, place, month, year, and president, no tremors noted Psych: No acute distress, calm and cooperative during the exam Results & Data Results & Data Vital Signs (Past 12 Hours) Vital Signs Temp Pulse Pulse Resp BP BP Pulse Ox 03/05/23 16:38 72 16 133/77 99 03/05/23 16:38 100 03/05/23 15:06 36.1 C L 78 19 111/65 94 O2 Del Method 03/05/23 16:38 Room Air 03/05/23 16:38 Room Air 03/05/23 15:06 Room Air Laboratory Results Abnormal lab results 03/05/23 03/05/23 03/05/23 Range/Units 15:36 18:28 18:54 RBC 4.51 L (4.70-6.10) M/uL Hgb 12.6 L (14.0-18.0) g/dl Hct 37.9 L (42.0-52.0) % Lymph # (Auto) 1.13 L (1.20-3.40) K/uL [place] # (Auto) 0.77 H (0.11-0.59) K/uL ESR 48 H (0-20) mm/hr Sodium 127 L (136-145) mmol/L Chloride 93 L (98-107) mmol/L BUN 24 H (6-23) mg/dl Creatinine 1.73 H (0.6-1.4) mg/dl Glucose 507 H* (70-99(Fasting)) mg/dl POC Glucose 339 H* 343 H* (70-99) mg/dl Alkaline Phosphatase 131 H (34-104) U/L C-Reactive Protein 9.31 H (0-0.5) mg/dl Diagnostic Findings Foot X-Ray 03/05/23 15:11 XR foot RT min 3V routine CLINICAL HISTORY: Right foot pain. Blisters. Diabetic. COMPARISON: Right first toe radiographs May 17, 2017. Fluoroscopic images of the right first toe May 21, 2017. MRI of the right foot May 13, 2017. Right foot radiographs May 07, 2017. FINDINGS: Right first digit amputation is noted. No acute fracture within the right foot is noted. No bony erosions are identified. Significant soft tissue swelling along the medial aspect of the midfoot is present. Bandage overlying the amputation site of the first digit is present. There is extensive vascular calcification. Plantar canal spurring is noted. There is moderate mid foot osteophytosis. IMPRESSION: 1. No acute fracture within the right foot. No radiographic evidence for acute osteomyelitis. 2. Medial right foot soft tissue swelling with possible large blister. 3. Status post right first toe amputation. 4. Extensive vascular calcification. ACT 112: Negative or not required by law. Electronically signed by: Davie Fitzgerald M.D. 03/05/2023 6:39 PM ECG Additional Comments: Will obtain at the time of admission Code Status & VTE Plan Code Status Full code VTE Prophylaxis Plan VTE Prophylaxis will be ordered: Yes Supervising Physician Co-Signing Physician Notes Patient seen and examined, chart reviewed, case discussed with Kurt Ling PA-C and I agree with the assessment and plan as above except as otherwise noted Labs and images reviewed 57-year-old male with past medical history of DM 2, PAD, CKD who presents with right diabetic foot infection with fluid collection around the great toe proximal phalanx with concern for osteo. Dopplers performed at bedside due to concern for peripheral artery disease/ischemia, patient has a brisk DP and PT pulse audible to Doppler on the right. MRI ordered and pending. Agree with broad antibiotic coverage including MRSA coverage, cefepime/Flagyl/Dapto. Podiatry consulted, anticipate surgical intervention 03/14. Patient seen at bedside, does not appear septic or toxic. Lungs are clear. Foot as shown in image above. Agree with assessment and management as noted PG Care Time/CCT Total # of Minutes Spent Total Time Spent with Patient: Total time spent is greater than 50% in coordination of care (as documented) at patient's floor/unit and/or counseling patient: Coding [place] [address] INT INP/OBS CARE 2/55MIN Patient Type Established Medical Decision Making Moderate Complexity Diagnoses Right foot infection L08.9 KIMMIE (acute kidney injury) N17.9 Uncontrolled type 2 diabetes mellitus with hyperglycemia, with long-term current use of insulin E11.65; Z79.4 Chronic heart failure with preserved ejection fraction (HFpEF) I50.32 Sleep apnea G47.30 PAD (peripheral artery disease) I73.9 Hypertension I10
[2023-03-05] MEDS ORDERED: DEXTROSE 50% 50 ML SYRINGE IV PRN (18:37)
[2023-03-05] MEDS ORDERED: CARBOHYDRATES FOR HYPOGLYCEMIA PO PRN (18:37)
[2023-03-05] MEDS ORDERED: GLUCOSE 10 TAB/TUBE PO PRN (18:37)
[2023-03-05] MEDS ORDERED: GLUCAGON FOR INJ 1 MG VIAL SQ PRN (18:37)
[2023-03-05] MEDS ORDERED: GLUCOSE 40% GEL 15 GM TUBE PO PRN (18:37)
[2023-03-05] MEDS ORDERED: POTASSIUM CHLORIDE CRTAB 20 MEQ TABCR PO STA (18:38)
--- NOTE | 2023-03-05 18:41 | XRay Report ---
XR foot RT min 3V routine CLINICAL HISTORY: Right foot pain. Blisters. Diabetic. COMPARISON: Right first toe radiographs May 17, 2017. Fluoroscopic images of the right first toe May 21, 2017. MRI of the right foot May 13, 2017. Right foot radiographs May 07, 2017 . FINDINGS: Right first digit amputation is noted. No acute fracture within the right foot is noted. N o bony erosions are identified. Significant soft tissue swelling along the medial aspect of the midfo ot is present. Bandage overlying the amputation site of the first digit is present. There is extensiv e vascular calcification. Plantar canal spurring is noted. There is moderate mid foot osteophytosis. IMPRESSION: 1. No acute fracture within the right foot. No radiographic evidence for acute osteomyelitis. 2. Medial right foot soft tissue swelling with possible large blister. 3. Status post right first toe amputation. 4. Extensive vascular calcification. ACT 112: Negative or not required by law. Electronically signed by: Davie Fitzgerald M.D. 03/05/2023 6:39 PM
[2023-03-05] MEDS ORDERED: PLASMA-LYTE A 1,000 ML IV ONE (18:48)
[2023-03-05] MEDS ORDERED: CEFEPIME 2,000 MG in SYRINGE 0 ML IV STA (19:13)
[2023-03-05] MEDS ORDERED: metroNIDAZOLE 500 MG/100 ML BAG IV STA (19:13)
[2023-03-05] MEDS ORDERED: ACETAMINOPHEN 325 MG TAB PO PRN (19:41)
[2023-03-05] MEDS: DAPTOmycin 300 MG in SYRINGE 0 ML IV SCH (22:26)
[2023-03-05] MEDS: INSULIN ASPART PER UNIT CHARGE SC SCH (22:40)
[2023-03-05] MEDS: METOPROLOL TARTRATE 100 MG TAB PO SCH (22:41)
[2023-03-05] MEDS: GABAPENTIN 600 MG TAB PO SCH (22:42)
--- NOTE | 2023-03-05 23:02 | Ultrasound Report ---
Exam(s): US RENAL EXAM: US Retroperitoneal Limited, Renal CLINICAL HISTORY: Reason for exam: KUN, please monitor for obstruction. TECHNIQUE: Real-time limited ultrasound of the retroperitoneum with image documentation. COMPARISON: No relevant prior studies available. FINDINGS: Right kidney: Unremarkable. No stones. No solid mass. No hydronephrosis. Mild fullness of the RIGHT renal collection system. Left kidney: Unremarkable. No stones. No solid mass. No hydronephrosis. IMPRESSION: Normal retroperitoneal ultrasound. Electronically signed by: Tim Phoenix MD 03/05/23 23:01 PM
[2023-03-05] MEDS: LANTUS PER UNIT CHARGE SQ SCH (23:15)
--- NOTE | 2023-03-06 00:49 | Magnetic Resonance Report ---
Exam(s): MRI RIGHT FOOT W/WO Contrast IV Amt: 8cc gadavist EXAM: MR Right Lower Extremity Without and With Intravenous Contrast, Foot CLINICAL HISTORY: Reason for exam: necrotic right foot, need further evaluation. TECHNIQUE: Multiplanar magnetic resonance images of the right foot without and with intravenous contrast. CONTRAST: Patient received 8cc gadavist of IV contrast COMPARISON: No relevant prior studies available. FINDINGS: Amputation of the first ray at the level of the interphalangeal joint. There is a moderate fluid collection surrounding the great toe proximal phalanx, concerning for an abscess. Mild edema of the great toe proximal phalanx, concerning for osteomyelitis. Soft tissue ulceration involving the third toe with mild edema of the middle and distal phalanx, concerning for early osteomyelitis. Blister along the dorsal surface of the fourth toe. No definite MR evidence of osteomyelitis of the fourth or fifth rays. Moderate first, second, and third intermetatarsal bursitis. No metatarsal fracture. No blistering malalignment. IMPRESSION: Evaluation is limited due to motion artifact, large [id number], and poor spatial resolution. 1. Amputation of the first ray at the level of the interphalangeal joint. Moderate fluid collection surrounding the great toe proximal phalanx, concerning for an abscess. Mild edema of the great toe proximal phalanx, concerning for osteomyelitis. 2. Soft tissue ulceration involving the third toe with mild edema of the middle and distal phalanx, concerning for early osteomyelitis. 3. Blister along the dorsal surface of the fourth toe. No definite MR evidence of osteomyelitis of the fourth or fifth rays. Electronically signed by: Tim Phoenix MD 03/06/23 00:48 AM
[2023-03-06] MEDS: INSULIN ASPART PER UNIT CHARGE SC SCH ×5 (01:30→20:17)
[2023-03-06] MEDS: metroNIDAZOLE 500 MG/100 ML BAG IV SCH ×3 (04:30→20:17)
[2023-03-06 04:35] LABS: Basophils # (auto) 0.08 K/uL (0.00-0.20); Basophils % (auto) 0.6 %; Eosinophils # (auto) 0.06 K/uL (0.00-0.50); Eosinophils % (auto) 0.4 %; Hematocrit (blood only) 35.9 % (42.0-52.0); Hemoglobin 12.2 g/dl (14.0-18.0); Immature Granulocytes # (auto) 0.06 K/uL (0.01-0.20); Immature Granulocytes % (auto) 0.4 %; Lymphocytes # (auto) 0.63 K/uL (1.20-3.40); Lymphocytes % (auto) 4.6 %; Mean Corpuscular Hemoglobin 28.3 pg (25.0-34.0); Mean Corpuscular Volume 83.3 fL (80.0-100.0); Monocytes # (auto) 1.21 K/uL (0.11-0.59); Monocytes % (auto) 8.8 %; Neutrophils # (auto) 11.71 K/uL (1.40-6.50); Neutrophils % (auto) 85.2 %; Platelet Count 269 K/uL (130-400); RDW Coefficient of Variation 13.1 % (11.5-14.5); RDW Standard Deviation 40.1 fL (36.4-46.3); Red Blood Count 4.31 M/uL (4.70-6.10); White Blood Count 13.75 K/ul (4.8-10.8)
[2023-03-06 05:03] LABS: Albumin Level 3.2 gm/dl (3.4-5.0); BUN Creatinine Ratio 11.8 (10-20); Bilirubin,Total 0.3 mg/dl (0.2-1.0); Creatinine Clr Calc Pharmacy 50.1 ml/min; Est GFR (African American) 50.4 ml/min; Est GFR (Non-African American) 43.5 ml/min; Globulin 3.1 gm/dl (2.5-4.0); Magnesium 1.9 mg/dl (1.7-2.4); Potassium 3.6 mmol/L (3.5-5.1); Total Protein 6.3 gm/dl (6.0-8.3)
[2023-03-06 05:05] LABS: INR 1.2 (0.9-1.1); Prothrombin Time 13.1 Seconds (9.0-12.0)
[2023-03-06 06:24] LABS: Appearance Urine Clear (Clear); Bacteria Urine Automated Negative (Negative); Bilirubin Urine Negative (Negative); Blood Urine 1+ (Negative); Color Urine Yellow; Epithelial Cell Urine Auto >30 /lpf (0-5); Glucose Urine UA 3+ (Negative); Ketones Urine Trace (Negative); Leukocyte Esterase Urine Negative (Negative); Nitrite Urine Negative (Negative); RBC Urine Automated 0-4 /hpf (0-4); Specific Gravity Urine 1.015 (1.000-1.030); Urobilinogen Urine Negative (Negative); pH Urine 7.5 (4.5-7.5)
[2023-03-06 06:27] LABS: Protein Urine 2+ (Negative)
[2023-03-06 06:52] LABS: Renal Epithelial Cells Urine 0-5 /lpf (0-5)
--- NOTE | 2023-03-06 07:03 | XRay Report ---
SINGLE VIEW CHEST CLINICAL HISTORY: Preoperative examination FINDINGS: An AP, portable, upright chest radiograph is compared to chest x-ray and chest CT dated 10/24. The examination is degraded by portable technique and apical lordotic positioning. There is a dvanced atherosclerotic calcification of the carotid bulbs. The cardiomediastinal silhouette is unrem arkable. The lungs and pleural spaces are clear. No pneumothorax is seen. The skeletal structures are osteopenic. The bony thorax is grossly intact. Degenerative change is noted in the shoulders with ca lcified joint bodies on the right. IMPRESSION: No active disease in the chest. ACT 112: Negative or not required by law. Electronically signed by: Blaise Vinson M.D. 03/06/2023 7:01 AM
--- NOTE | 2023-03-06 07:23 | Anesthesiology Consultation ---
Date of Service March 06, 2023 Assessment & Plan (1) Encounter for pre-operative examination: Chart Review Chart Review: Acceptable Risk for Surgery History Surgery Operation Date: 03/06/23 07:00 Proposed Procedures p Right Foot Amputation Transmetatarsal - Ifeanyi Garcia DPM, MS Height/Weight Height: 5 ft 11 in Weight: 76.3 kg Allergies Allergy/AdvReac Type Severity Reaction Status Date / Time levofloxacin AdvReac Intermediate GI SYMPTOMS Verified 02/01/23 13:37 pneumococcal vaccine AdvReac Intermediate GI Verified 02/01/23 13:37 SYMPTOMS-OK IF MULTIPLE VACCINES GIVEN SEPARATELY tetanus toxoid, adsorbed AdvReac Intermediate TETANUS/DIPTHERIA/PERTUSSIS-GI Verified 02/01/23 13:37 UPSTE/BODY ACHES Medications Home Medications Medication Instructions Recorded Confirmed Last Taken acetaminophen 500 mg tablet 500 - 1,000 mg PO Q8 PRN Pain 01/30/22 03/05/23 Unknown (Tylenol Extra Strength) cyanocobalamin (vitamin B-12) 1,000 mcg PO QAM 01/30/22 03/05/23 03/05/23 1,000 mcg tablet (Vitamin B-12) gabapentin 600 mg tablet 600 mg PO AMHS 01/30/22 03/05/23 03/05/23 metformin 1,000 mg tablet 1,000 mg PO BID 01/30/22 03/05/23 03/05/23 pantoprazole 40 mg tablet,delayed 40 mg PO QAM 01/30/22 03/05/23 03/05/23 release potassium chloride 20 mEq 40 meq (2 x 20 mEq) PO QAM #60 tabs 02/09/22 03/05/23 03/05/23 tablet,extended release(part/cryst) aspirin 81 mg tablet,delayed 81 mg PO DAILY 03/08/22 03/05/23 03/05/23 release (Adult Aspirin Regimen) cholecalciferol (vitamin D3) 25 25 mcg PO QAM 03/08/22 03/05/23 03/05/23 mcg (1,000 unit) capsule furosemide 20 mg tablet 20 mg PO QAM 11/12/22 03/05/23 03/05/23 magnesium chloride 64 mg 64 mg PO QAM #30 tabs 11/13/22 03/05/23 03/05/23 (magnesium chloride) tablet,delayed release (Mag 64) metoprolol tartrate 100 mg tablet 100 mg PO BID #60 tabs 11/13/22 03/05/23 03/05/23 blood sugar diagnostic 12/07/22 02/01/23 Unknown blood-glucose sensor (Dexcom G6 12/07/22 02/01/23 Unknown Sensor device) insulin aspar prot-insulin aspart See Rx Instructions subcut BID #60 12/07/22 03/05/23 03/05/23 100 unit/mL (70-30) subcutaneous mL pen (Novolog Mix 70-30FlexPen U-100) pen needle, diabetic 32 gauge x 12/07/22 02/01/23 Unknown 32" (BD Ultra-Fine Fanny Pen Needle) rosuvastatin 40 mg tablet 40 mg PO QAM 12/07/22 03/05/23 03/05/23 BiPap Machine 03/05/23 03/05/23 Unknown bupropion HCl 200 mg tablet,12 hr 300 mg PO QAM 03/05/23 03/05/23 03/05/23 sustained-release (Wellbutrin SR) Active Medications Generic Name Dose Route Start Last Admin Trade Name Freq PRN Reason Stop Dose Admin Gabapentin 600 mg 03/05/23 21:23 03/05/23 22:42 Gabapentin 600 Mg Tab PO 04/04/23 21:22 600 mg AMHS ALL Administration Daptomycin 300 mg/ Syringe 6 mls @ 3 mls/min 03/05/23 19:30 03/05/23 22:26 IV 03/12/23 19:29 3 mls/min Q24H ALL Administration Protocol Metronidazole 500 mg in 100 mls @ 100 mls/hr 03/06/23 04:00 03/06/23 05:59 Flagyl IV 03/13/23 03:59 Infused Q8H ALL Infusion Protocol Insulin Aspart 0 units 03/06/23 06:00 03/06/23 06:02 Insulin Aspart Per Unit Charge SC 04/05/23 05:59 3 units Q6 ALL Administration Insulin Glargine 10 units 03/05/23 21:00 03/05/23 23:15 Lantus Per Unit Charge SQ 04/04/23 20:59 10 units BID ALL Administration Metoprolol Tartrate 100 mg 03/05/23 21:23 03/05/23 22:41 Metoprolol Tartrate 100 Mg Tab PO 04/04/23 21:22 100 mg BID ALL Administration Past Medical History Medical History (Updated 03/06/23 @ 07:23 by Prosper Booker MD) KUN (acute kidney injury) Acute hyperglycemia Elevated troponin Elevated LFTs Gram-negative bacteremia Infection of total left knee replacement Leg swelling Fatigue Venous stasis ulcer Diabetic ulcer of left heel Seizure-like activity History of infection of total joint prosthesis of knee GERD (gastroesophageal reflux disease) Hx MRSA infection 2018> resolved Hx of diabetic foot ulcer Bulging lumbar disc GERD (gastroesophageal reflux disease) History of anemia Attention deficit disorder (ADD) Anxiety and depression History of kidney stones Cardiac murmur FOLLOWS WITH DR. GREENWOOD Serum potassium elevated Osteoarthritis Sleep apnea CPAP Acute on chronic congestive heart failure CHF (congestive heart failure) Obstructive sleep apnea syndrome Hyperlipidemia HTN (hypertension) Acute diastolic congestive heart failure Infection of prosthetic right knee joint Hypokalemia Streptococcal sepsis Hypophosphatemia Hyponatremia Ulcer of left midfoot Acquired bilateral hammer toes Callus Diabetic ulcer of left foot Cellulitis of left leg Pleural effusion DM type 2 (diabetes mellitus, type 2) Acquired claw toe of right foot Testicular pain Low back pain with sciatica History of diabetic ulcer of foot Dysesthesia Diabetic peripheral neuropathy associated with type 2 diabetes mellitus Past Family History Family History Father Family history of diabetes mellitus Other No family history of adverse response to anesthesia No pertinent family history Past Surgical History Surgical History History of tooth extraction History of open reduction and internal fixation (ORIF) procedure RT HAND S/P revision of total knee LEFT History of total left knee replacement History of revision of total replacement of knee joint (05/23/12) Amputated great toe of right foot History of colonoscopy History of wisdom tooth extraction Social History Smoking Status: Never smoker Do You Dip or Chew Tobacco: No Hx Alcohol Use: No Alcohol type: beer alcohol intake frequency: a few times a month Hx Substance Use: No substance use type: does not use Physical Exam Vital Signs Last Vital Signs Temp 36.1 C L 03/05/23 15:06 Pulse 91 H 03/06/23 06:52 Resp 15 03/06/23 02:15 BP 153/90 H 03/05/23 23:02 Pulse Ox 94 03/06/23 02:15 O2 Del Method Room Air 03/05/23 23:02 FiO2 21 03/06/23 02:15 Testing Laboratory Results 03/06/23 03:29 03/06/23 03:29 PT 13.1 Seconds (9.0-12.0) H 03/06/23 03:29 INR 1.2 (0.9-1.1) H 03/06/23 03:29 Urine Color Yellow 03/06/23 05:20 Urine Appearance Clear (Clear) 03/06/23 05:20 Urine pH 7.5 (4.5-7.5) 03/06/23 05:20 Ur Specific [place] 1.015 (1.000-1.030) 03/06/23 05:20 Urine Protein 2+ (Negative) H 03/06/23 05:20 Urine Glucose (UA) 3+ (Negative) H 03/06/23 05:20 Urine Ketones Trace (Negative) H 03/06/23 05:20 Urine Nitrite Negative (Negative) 03/06/23 05:20 Ur Leukocyte Esterase Negative (Negative) 03/06/23 05:20 Urine WBC (Auto) 1-5 /hpf (0-5) 03/06/23 05:20 Urine RBC (Auto) 0-4 /hpf (0-4) 03/06/23 05:20 U Hyaline Cast (Auto) 1-5 /lpf (0-5) 03/06/23 05:20 U Epithel Cells (Auto) >30 /lpf (0-5) H 03/06/23 05:20 Urine Bacteria (Auto) Negative (Negative) 03/06/23 05:20 03/06/23 03/06/23 03/06/23 05:57 00:55 00:52 POC Glucose 262 H 284 H 316 H* 03/05/23 22:10 POC Glucose 197 H Electrocardiogram Date: 03/05/23 Findings: + NSR @ (85) and + poor R wave progression PVC's Chest X-Ray Date: 03/05/23 Findings: + NAD Echocardiogram Date: 11/13/22 EF: 65-70% LV Function: normal Other Findings: + LVH (moderate) Valvular Disease: + (mild), + AI (mild) and + MR (mild)
[2023-03-06] MEDS: ASPIRIN 81 MG ECTAB PO SCH (07:43)
[2023-03-06] MEDS: PANTOprazole 40 MG TAB PO SCH (07:43)
[2023-03-06] MEDS: METOPROLOL TARTRATE 100 MG TAB PO SCH ×2 (07:43→20:16)
[2023-03-06] MEDS: GABAPENTIN 600 MG TAB PO SCH ×2 (07:43→20:17)
[2023-03-06] MEDS: MAGNESIUM CHLORIDE W/CALCIUM 64MG DELAYED REL TAB PO SCH (07:43)
[2023-03-06] MEDS: POTASSIUM CHLORIDE CRTAB 20 MEQ TABCR PO SCH (07:44)
[2023-03-06] MEDS: ROSUVASTATIN CALCIUM 20 MG TAB PO SCH (07:44)
[2023-03-06] MEDS: buPROPion SR 150 MG TABCR PO SCH (07:44)
[2023-03-06] MEDS: LANTUS PER UNIT CHARGE SQ SCH ×2 (08:19→20:18)
[2023-03-06] MEDS: CEFEPIME 2,000 MG in SYRINGE 0 ML IV SCH ×2 (11:41→23:13)
--- NOTE | 2023-03-06 13:08 | Hospitalist Progress Note ---
Date of Service March 06, 2023 Assessment & Plan (1) Necrotic toes: Plan: Pt is a 57 yo male with PMH of uncontrolled DM, ADD, GERD, JENNIFFER, HLD, HTN, and HFpEF presenting from his licensed optician d/t concern for right foot infection w/ necrosis possibly requiring amputation. Right foot infection w/ necrosis - xray of foot showed no fracture or signs of osteo - foot MRI showed fluid collection around great toe proximal phalanx and third toe with edema concerning for osteomyelitis; no definite evidence of osteo in 4th and 5th toes - s/p one dose of ceftriaxone and 1.5L NSS in the ED and another 1L upon admission - blood cx pending; wound cx pending - current ABX coverage: cefepime, flagyl, and daptomycin - continue tylenol and dilaudid PRN for pain control - pt set for surgical intervention today for amputation/deep wound cx KUN - Cr upon admission 1.7; baseline appears near 1.0 - renal US neg - s/p IVF - hold lasix and metformin - continue to monitor Uncontrolled type 2 diabetes mellitus - patient admitted with BSG in the 500's; hold home metformin - AG WNL, bicarb WNL, no sign of DKA - lantus 10 units BID; CF of 50 and CR of 15; BS goal is 110-140 Chronic heart failure with preserved ejection fraction - appears euvolemic on exam - lasix held d/t KUN and pre-operative; will reassess fluid status and need for lasix Sleep apnea - continue CPAP/Bipap Peripheral arterial disease - will continue aspirin Hypertension - stable - continue metoprolol Diet: will resume carb consistent after surgery VTE ppx: deferring until after surgery Dispo: med/surg with tele Code: full Line: jimenez in place (2) Cellulitis: (3) Right foot infection: (4) Uncontrolled type 2 diabetes mellitus with hyperglycemia, with long-term current use of insulin: (5) PAD (peripheral artery disease): (6) KUN (acute kidney injury): Admission and Anticipated Discharge Date Admission Date: March 05, 2023 Supervising Physician Co-Signing Physician Notes Resident Physician Supervision Note: I independently interviewed and examined the patient and verified the lei history and physical, reviewed labs and image studies and agree with resident findings and care plan. Subjective Pt feeling well this morning. No chest pain, SOB, or foot/leg pain. Denies fevers/chills. Review of Systems Review of Systems: As per HPI Physical Exam Physical Exam: Constitutional: well appearing, no acute distress HEENT: normocephalic, no conjunctival injection CV: regular rhythm, regular rate, no murmur, no LE edema Respiratory: Clear to auscultation bilaterally. No rhonchi, wheezes, or crackles. No increased work of breathing GI: soft, nondistended, positive bowel sounds MSK: hx of 1st digit of right foot amputation. Remnants and 2nd toe necrotic. Large fluid/gas filled lesion noted on lateral side of right foot. Open wound noted of lower right leg with purulent discharge. Neuro: alert, no FND noted Results & Data Results & Data Vital Signs (Past 12 Hours) Vital Signs Temp Pulse Pulse Resp BP Pulse Ox O2 Del Method 03/06/23 11:34 37.2 C 85 20 91/52 L 95 Room Air 03/06/23 07:41 36.9 C 93 H 20 96/59 L 98 Room Air 03/06/23 06:52 91 H 03/06/23 02:15 82 15 94 03/06/23 02:00 84 FiO2 03/06/23 11:34 03/06/23 07:41 03/06/23 06:52 03/06/23 02:15 21 03/06/23 02:00 Resident Activity Tracking Resident Involvement: Resident Care Provided Care Provided: Adult Hospital Medicine (2) Cellulitis Site of cellulitis: unspecified site Qualified Code(s): L03.90 - Cellulitis, unspecified
--- NOTE | 2023-03-06 14:26 | Electrocardiogram Report ---
Test Reason : Blood Pressure : / mmHG Vent. Rate : 085 BPM Atrial Rate : 085 BPM P-R Int : 170 ms QRS Dur : 078 ms QT Int : 362 ms P-R-T Axes : 032 000 034 degrees QTc Int : 430 ms Poor data quality, interpretation may be adversely affected Sinus rhythm with occasional Premature ventricular complexes Septal infarct (cited on or before 12-NOV-2022) Abnormal ECG When compared with ECG of 12-NOV-2022 01:34, Premature ventricular complexes are now Present Confirmed by Efrem Duenas ([id number]) on 03/06/2023 2:26:20 PM Referred By: REFERRED SELF Confirmed By:Efrem Duenas
[2023-03-06] MEDS ORDERED: PHENYLEPHRINE HCL 10 MG/ML VIAL ONE (15:02)
[2023-03-06] MEDS ORDERED: LIDOCAINE 2% 2 ML VIAL/AMP(20MG/ML) INFIL ONE (15:02)
[2023-03-06] MEDS ORDERED: ePHEDrine sulfate 50 MG/ML AMP ONE (15:02)
[2023-03-06] MEDS ORDERED: ONDANSETRON INJ 2 MG/ML 2 ML VIAL ONE (15:02)
[2023-03-06] MEDS ORDERED: PROPOFOL IV EMULSION 10 MG/ML 20 ML VIAL IV ONE ×2 (15:02→15:39)
[2023-03-06] MEDS ORDERED: ROCURONIUM BROMIDE 10 MG/ML 5 ML VIAL IV ONE (15:02)
[2023-03-06] MEDS ORDERED: BUPIVACAINE/EPINEPHRINE 0.5% MPF 1:200,000 30 ML VIAL ONE (15:06)
[2023-03-06] MEDS ORDERED: fentaNYL citrate PF 100 MCG/2 ML VIAL ONE (15:31)
[2023-03-06] MEDS ORDERED: fentaNYL citrate PF 100 MCG/2 ML VIAL IV PRN (15:33)
[2023-03-06] MEDS ORDERED: ATROPINE SULFATE 0.1 MG/ML 10ML SYR IV PRN (15:33)
[2023-03-06] MEDS ORDERED: ePHEDrine sulfate 50 MG/ML AMP IV PRN (15:33)
[2023-03-06] MEDS ORDERED: ONDANSETRON INJ 2 MG/ML 2 ML VIAL IV PRN (15:33)
[2023-03-06] MEDS ORDERED: HYDROmorphone INJ 2 MG/ML SYR/VIAL IV PRN (15:33)
[2023-03-06] MEDS ORDERED: KETAMINE HCL 10MG/ML SYR ONE (15:37)
[2023-03-06] MEDS ORDERED: DexMEDEtomidine HCL IV 100 MCG/ML VIAL IV ONE (15:37)
--- NOTE | 2023-03-06 15:38 | Orthopedic Consultation ---
Date of Consultation March 06, 2023 Assessment & Plan (1) Necrotic toes: Patient seen, evaluated, and treated. I reviewed MRI images and findings. I reviewed physical exam with Patient and . Both Patient and are in agreement on need for partial amputation of right foot. I reviewed transmetatarsal amputation in detail. Patient would like to proceed. All questions answered. (2) Cellulitis: (3) PAD (peripheral artery disease): (4) Right foot infection: (5) Uncontrolled type 2 diabetes mellitus with hyperglycemia, with long-term current use of insulin: History of Present Illness Attending Physician: Makenna Bravo MD History of Present Illness Patient is a 57 year old male seen at bedside for right foot necrotic toes. Patient has a past medical history significant for DMII, HFpEF, LVOT (dynamic obstruction/JOHN of MV (not seen on 2021 or recent echos), PAD, carotid disease (70-79% left, 60-69% right), L knee streptococcal TKA, hypertension, and GERD. He is status post TKA revision 2018 previously on oral suppressive cephalexin, admission last year for Serratia L knee PJI and bacteremia s/p total explant and spacer (01/03/22). MRI is concerning for osteomyelitis. Patient's is present who understands need for transmetatarsal amputation due to the extensive necrosis of the distal forefoot. Allergies Allergy/AdvReac Type Severity Reaction Status Date / Time levofloxacin AdvReac Intermediate GI SYMPTOMS Verified 02/01/23 13:37 pneumococcal vaccine AdvReac Intermediate GI Verified 02/01/23 13:37 SYMPTOMS-OK IF MULTIPLE VACCINES GIVEN SEPARATELY tetanus toxoid, adsorbed AdvReac Intermediate TETANUS/DIPTHERIA/PERTUSSIS-GI Verified 02/01/23 13:37 UPSTE/BODY ACHES Home Medications Medication Instructions Recorded Confirmed Type acetaminophen 500 mg tablet 500 - 1,000 mg PO Q8 PRN Pain 01/30/22 03/05/23 History (Tylenol Extra Strength) cyanocobalamin (vitamin B-12) 1,000 mcg PO QAM 01/30/22 03/05/23 History 1,000 mcg tablet (Vitamin B-12) gabapentin 600 mg tablet 600 mg PO AMHS 01/30/22 03/05/23 History metformin 1,000 mg tablet 1,000 mg PO BID 01/30/22 03/05/23 History pantoprazole 40 mg tablet,delayed 40 mg PO QAM 01/30/22 03/05/23 History release potassium chloride 20 mEq 40 meq (2 x 20 mEq) PO QAM #60 tabs 02/09/22 03/05/23 Rx tablet,extended release(part/cryst) aspirin 81 mg tablet,delayed 81 mg PO DAILY 03/08/22 03/05/23 History release (Adult Aspirin Regimen) cholecalciferol (vitamin D3) 25 25 mcg PO QAM 03/08/22 03/05/23 History mcg (1,000 unit) capsule furosemide 20 mg tablet 20 mg PO QAM 11/12/22 03/05/23 History magnesium chloride 64 mg 64 mg PO QAM #30 tabs 11/13/22 03/05/23 Rx (magnesium chloride) tablet,delayed release (Mag 64) metoprolol tartrate 100 mg tablet 100 mg PO BID #60 tabs 11/13/22 03/05/23 Rx blood sugar diagnostic 12/07/22 02/01/23 History blood-glucose sensor (Dexcom G6 12/07/22 02/01/23 History Sensor device) insulin aspar prot-insulin aspart See Rx Instructions subcut BID #60 12/07/22 03/05/23 Rx 100 unit/mL (70-30) subcutaneous mL pen (Novolog Mix 70-30FlexPen U-100) pen needle, diabetic 32 gauge x 12/07/22 02/01/23 History 5/32" (BD Ultra-Fine Fanny Pen Needle) rosuvastatin 40 mg tablet 40 mg PO QAM 12/07/22 03/05/23 History BiPap Machine 03/05/23 03/05/23 History bupropion HCl 200 mg tablet,12 hr 300 mg PO QAM 03/05/23 03/05/23 History sustained-release (Wellbutrin SR) Patient History Medical History KUN (acute kidney injury) Acute hyperglycemia Elevated troponin Elevated LFTs Gram-negative bacteremia Infection of total left knee replacement Leg swelling Fatigue Venous stasis ulcer Diabetic ulcer of left heel Seizure-like activity History of infection of total joint prosthesis of knee GERD (gastroesophageal reflux disease) Hx MRSA infection 2018> resolved Hx of diabetic foot ulcer Bulging lumbar disc GERD (gastroesophageal reflux disease) History of anemia Attention deficit disorder (ADD) Anxiety and depression History of kidney stones Cardiac murmur FOLLOWS WITH DR. GREENWOOD Serum potassium elevated Osteoarthritis Sleep apnea CPAP Acute on chronic congestive heart failure CHF (congestive heart failure) Obstructive sleep apnea syndrome Hyperlipidemia HTN (hypertension) Acute diastolic congestive heart failure Infection of prosthetic right knee joint Hypokalemia Streptococcal sepsis Hypophosphatemia Hyponatremia Ulcer of left midfoot Acquired bilateral hammer toes Callus Diabetic ulcer of left foot Cellulitis of left leg Pleural effusion DM type 2 (diabetes mellitus, type 2) Acquired claw toe of right foot Testicular pain Low back pain with sciatica History of diabetic ulcer of foot Dysesthesia Diabetic peripheral neuropathy associated with type 2 diabetes mellitus Surgical History History of tooth extraction History of open reduction and internal fixation (ORIF) procedure RT HAND S/P revision of total knee LEFT History of total left knee replacement History of revision of total replacement of knee joint (05/23/12) Amputated great toe of right foot History of colonoscopy History of wisdom tooth extraction Family History Father Family history of diabetes mellitus Other No family history of adverse response to anesthesia No pertinent family history Social History Smoking Status: Never smoker Second Hand Exposure: Yes; Do You Dip or Chew Tobacco: No; Hx Alcohol Use: No Hx Substance Use: No Preferred Language: Serbian Communication Ability: Effective Visual Impairment: Limited 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 Beliefs That Will Affect Care: None marital status: Current Living Situation: Spouse and Family current occupational status: employed current occupation: [employer] , 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 How many Children do You have: 2 Feels Safe at Home: Yes Safety Concerns: Feels Safe At This Time Diet: diabetic during the past year weight has: remained stable Assistive Devices: Glasses and Walker Review of Systems Review of Systems: All systems reviewed & are unremarkable except as noted in HPI & below Physical Exam Physical Exam: General: In no acute distress, stated age, chronically ill appearing but non- toxic HEENT: Normocephalic, atraumatic, no scleral icterus, pupils around round, symmetrical, and reactive to light, moist mucus membranes, trachea midline, no thyromegaly Chest/Pulm: No respiratory distress, symmetrical chest expansion, clear breath sounds throughout Cardiac: RRR, no murmurs noted Abdomen: Negative for ascites and bruising, normoactive bowel sounds, soft, non- tender to palpation throughout Musculoskeletal: Patient with previous right great toe amputation; right foot is swollen and erythematous with concern for ischemic right second and third toes, large blister running the length of the medial aspect of the right foot, Extremities: Radial, dorsalis pedis, and posterior tibial pulses are intact, brisk and symmetrical on bedside doppler , 1+ edema in the BL LE's. Skin: as described above; also see attached pictures Neuro: Alert and oriented to person, place, month, year, and president, no tremors noted Psych: No acute distress, calm and cooperative during the exam Results & Data Vital Signs (Past 12 Hours) Vital Signs Temp Pulse Pulse Resp BP Pulse Ox O2 Del Method 03/06/23 15:29 37 C 80 18 105/55 L 97 Room Air 03/06/23 15:21 83 03/06/23 11:34 37.2 C 85 20 91/52 L 95 Room Air 03/06/23 07:41 36.9 C 93 H 20 96/59 L 98 Room Air 03/06/23 06:52 91 H Diagnostic Findings [place] [phone] Magnetic Resonance Report Patient: KY LOMBARDI Admit Date: 03/05/23 MR#: [id number] Address1: [address] [place] [address] Acct ID:[id number] Address2: Date: 1965 [facility] Zip: [place] [address] Age: 57 Location: [facility] Sex: M Room/Bed: [facility] 1-5 Att Phy: Makenna Bravo MD Diagnosis: RIGHT FOOT INFECTION, HYPERGLYCEMIA Kadi Phy: Kaushal Johnson MD Service Date: 03/05/23 Fam Phy: Interpreting Phy: Tim Phoenix MDAdmit Phy: Luis Lopez MD Ordering Phy: Kurt Ling PA-C cc: ~ Exam(s): MRI RIGHT FOOT W/WO Contrast IV Amt: 8cc gadavist EXAM: MR Right Lower Extremity Without and With Intravenous Contrast, Foot CLINICAL HISTORY: Reason for exam: necrotic right foot, need further evaluation. TECHNIQUE: Multiplanar magnetic resonance images of the right foot without and with intravenous contrast. CONTRAST: Patient received 8cc gadavist of IV contrast COMPARISON: No relevant prior studies available. FINDINGS: Amputation of the first ray at the level of the interphalangeal joint. There is a moderate fluid collection surrounding the great toe proximal phalanx, concerning for an abscess. Mild edema of the great toe proximal phalanx, concerning for osteomyelitis. Soft tissue ulceration involving the third toe with mild edema of the middle and distal phalanx, concerning for early osteomyelitis. Blister along the dorsal surface of the fourth toe. No definite MR evidence of osteomyelitis of the fourth or fifth rays. Moderate first, second, and third intermetatarsal bursitis. No metatarsal fracture. No blistering malalignment. IMPRESSION: Evaluation is limited due to motion artifact, large [id number], and poor spatial resolution. 1. Amputation of the first ray at the level of the interphalangeal joint. Moderate fluid collection surrounding the great toe proximal phalanx, concerning for an abscess. Mild edema of the great toe proximal phalanx, concerning for osteomyelitis. 2. Soft tissue ulceration involving the third toe with mild edema of the middle and distal phalanx, concerning for early osteomyelitis. 3. Blister along the dorsal surface of the fourth toe. No definite MR evidence of osteomyelitis of the fourth or fifth rays. Electronically signed by: Tim Phoenix MD 03/06/23 00:48 AM Dictated: 03/06/2347 Transcribed: 03/06/2347 (2) Cellulitis Site of cellulitis: unspecified site Qualified Code(s): L03.90 - Cellulitis, unspecified
--- NOTE | 2023-03-06 15:54 | History & Physical Bridge Note ---
Date of Service March 06, 2023 History & Physical Bridge Note I have examined the patient, reviewed the History & Physical and in the interval since the performance of the History & Physical I have noted the following changes of clinical significance: no changes noted
--- NOTE | 2023-03-06 16:59 | Post Operative Brief Note ---
Immediate Post Op Note v1 Date of Surgery March 06, 2023 Pre & Post Diagnosis Operation Date: 03/06/23 07:00 Pre-Op Diagnosis: Necrotic right toes Post-Op Diagnosis: Necrotic right toes I identified the patient and participated in the time-out.: Yes Procedure Operation Date: 03/06/23 07:00 Actual Procedures p Right Foot Amputation Transmetatarsal - Ifeanyi Garcia DPM, MS Surgeon Ifeanyi Garcia DPM, MS Professor Of Kinesiology None Estimated Blood Loss 0 Findings Consistent with Post-Op Diagnosis Necrotic right forefoot Specimens Microbiology - right first metatarsal bone Right transmetatarsal amputation - Pathology Drains Other ([place] catheter from inpatient floor, clear yellow urine noted, anesthesia to monitor urine output)
--- NOTE | 2023-03-06 18:26 | Anesthesiology Progress Note ---
Date of Service March 06, 2023 Anesthesia Post Procedure Vital Signs Vital Signs: Temp Pulse Pulse Pulse Resp BP Pulse Ox 03/06/23 18:05 36.6 C 76 99/59 L 97 03/06/23 17:58 36.7 C 78 102/62 97 03/06/23 17:35 37.1 C 80 15 101/69 99 03/06/23 17:25 78 14 102/55 L 99 03/06/23 17:15 77 14 90/52 L 100 03/06/23 17:05 82 14 93/52 L 100 03/06/23 16:58 36.6 C 79 13 95/52 L 96 03/06/23 15:29 37 C 80 18 105/55 L 97 03/06/23 15:21 83 03/06/23 11:34 37.2 C 85 20 91/52 L 95 03/06/23 07:41 36.9 C 93 H 20 96/59 L 98 03/06/23 06:52 91 H 03/06/23 02:15 82 15 94 03/06/23 02:00 84 03/05/23 23:02 88 16 153/90 H 98 03/05/23 22:56 89 03/05/23 22:43 91 H 20 130/83 95 03/05/23 22:43 95 03/05/23 19:35 83 16 134/70 95 03/05/23 18:32 74 03/05/23 18:30 76 16 94/45 L 98 O2 Del Method O2 Flow Rate FiO2 03/06/23 18:05 Room Air 03/06/23 17:58 Room Air 03/06/23 17:35 Room Air 03/06/23 17:25 Oxymask 4 03/06/23 17:15 Oxymask 4 03/06/23 17:05 Oxymask 6 03/06/23 16:58 Oxymask 6 03/06/23 15:29 Room Air 03/06/23 15:21 03/06/23 11:34 Room Air 03/06/23 07:41 Room Air 03/06/23 06:52 03/06/23 02:15 21 03/06/23 02:00 03/05/23 23:02 Room Air 03/05/23 22:56 03/05/23 22:43 Room Air 03/05/23 22:43 Room Air 03/05/23 19:35 Room Air 03/05/23 18:32 03/05/23 18:30 Room Air Transfer of Care Handoff Completed per policy Notes Mental Status: alert / awake / arousable and participated in evaluation Patient Amnestic to Procedure: Yes Nausea / Vomiting: adequately controlled Pain: adequately controlled Airway Patency, RR, SpO2: stable & adequate BP & HR: stable & adequate Hydration State: stable & adequate Anesthetic Complications: no major complications apparent and Pt Satisfied with anesthetic care
[2023-03-06] MEDS: DAPTOmycin 300 MG in SYRINGE 0 ML IV SCH (20:17)
--- NOTE | 2023-03-06 21:33 | Operative Report ---
Post Operative Report Pre & Post Diagnosis Operation Date: 03/06/23 07:00 Pre-Op Diagnosis: Necrotic right toes Post-Op Diagnosis: Necrotic right toes I identified the patient and participated in the time-out.: Yes Procedure Operation Date: 03/06/23 07:00 Actual Procedures p Right Foot Amputation Transmetatarsal - Ifeanyi Garcia DPM, MS Surgeon Ifeanyi Garcia DPM, MS Low Pressure Kettle Operator None Estimated Blood Loss 0 Findings Consistent with Post-Op Diagnosis consistent with pre operative diagnosis Specimens Right transmetatarsal amputation - pathology / microbiology Deep culture right foot Description of Procedure History of present illness: Patient is a 57 year old type II diabetic male who is seen for treatment of right foot necrosis. I discussed Patient and 's wish for amputation and reviewed surgery. All questions answered. Discussed procedure in detail and postoperative recovery. All potential risks, benefits, complications, alternatives, rehab, potential for incomplete relief of symptoms, need for further surgery, DVT, PE, , persistent pain, swelling, scarring, weakness, neurovascular, wound complications and potential for amputations were discussed with patient. Unwanted outcomes such as, but not limited to were reviewed including under correction, overcorrection, return of deformity, infection. All questions were answered. Patient has decided to proceed with procedure as indicated. Preoperative diagnosis: right foot necrosis Postoperative diagnosis: right foot necrosis Name of operation: right foot transmetatarsal amputation, with delayed primary closure Surgeon Dr. Garcia Low Pressure Kettle Operator: None Anesthesia: General anesthesia care Hemostasis: Anatomic dissection, Pneumatic calf tourniquet Estimated blood loss: none Procedure in detail: Under mild sedation the patient was brought in the operating room placed on the operating table in supine position. A pneumatic calf tourniquet was then placed about the patient's right thigh. Following IV the foot was then prepped scrubbed and draped in usual aseptic manner. An Esmarch bandage was utilized to exsanguinate the patient's right foot and the pneumatic calf tourniquet was then inflated. Attention was then directed to the right gangerous necrosis foot. A fishmouth incision was created utilizing a sharp, sterile, #15 blade encompassing the forefoot. The incision which was deepened throgh subcutaneous tissue using sharp blunt dissection. Care was taken to identify and retract all vital neurovascular structures. All bleeders were ligated and cauterized necessary. Once down to the layer of periosteum and bone, a transverse incision was made within the periosteum. A lei elevator was then used to free the soft tissue at the site of the metatarsal neck region. Once this was then performed with the use of a sagittal saw the metatarsals were then transversely cut in a fashion where the 1st and 3rd metatarsals were approximately the same length. The 2nd metatarsal was left slightly long as to maintain the metatarsal parabola. Once all the metatarsals have been cut, the metatarsal heads were then disarticulated from the surrounding soft tissue with the use of a 15 blade dissecting down through the medial aspect of the first metatarsal capsule including the sesamoids the soft tissue was then reflected from the plantar aspect of the metatarsal heads plantarly. The patient at that point then had the forefoot completely disarticulated and passed off to the back table in order to be sent for pathology. Attention was now directed back towards the forefoot. There was no gross infectious signs noted at this point. The patient then underwent copious irrigation with the use of 3 L of lactate ringer. All participants in the surgery removed their top layer of gloves and only clean instrumentation was used from here on out. Hemostasis was acquired. To make sure that the patient will not further demarcate it was decided the wound would not be closed immediately. In addition, the patient had some erythema with presentation today. I did not wish for the patient to undergo closure as there was the possibility of possible infection within the wound bed. The pneumatic tourniquet was deflated and a prompt hyperemic response was noted to the right foot. 4x4's, ABD, Kerlix and Marko were then applied. The Patient tolerated the procedure and anesthesia well. He was transferred to recovery room vital signs stable. After postoperative monitoring the patient will be re admitted to the floor resuming all pre operative orders. I attest to the content of the Intraoperative Record and any orders documented therein. Any exceptions are noted below.
[2023-03-07] MEDS: metroNIDAZOLE 500 MG/100 ML BAG IV SCH (04:49)
[2023-03-07 06:24] LABS: Basophils # (auto) 0.05 K/uL (0.00-0.20); Basophils % (auto) 0.4 %; Eosinophils # (auto) 0.03 K/uL (0.00-0.50); Eosinophils % (auto) 0.2 %; Hematocrit (blood only) 32.4 % (42.0-52.0); Hemoglobin 10.8 g/dl (14.0-18.0); Immature Granulocytes # (auto) 0.04 K/uL (0.01-0.20); Immature Granulocytes % (auto) 0.3 %; Lymphocytes # (auto) 0.76 K/uL (1.20-3.40); Lymphocytes % (auto) 6.2 %; Mean Corpuscular Hemoglobin 27.9 pg (25.0-34.0); Mean Corpuscular Hgb Conc 33.3 g/dL (32.0-36.0); Mean Corpuscular Volume 83.7 fL (80.0-100.0); Mean Platelet Volume 10.2 fL (9.4-12.4); Monocytes % (auto) 9.8 %; Neutrophils # (auto) 10.22 K/uL (1.40-6.50); Neutrophils % (auto) 83.1 %; Platelet Count 231 K/uL (130-400); RDW Coefficient of Variation 13.2 % (11.5-14.5); Red Blood Count 3.87 M/uL (4.70-6.10)
[2023-03-07 06:40] LABS: Albumin Level 2.7 gm/dl (3.4-5.0); BUN Creatinine Ratio 11.4 (10-20); Bilirubin,Total 0.3 mg/dl (0.2-1.0); Calcium 8.4 mg/dl (8.6-10.3); Creatinine Clr Calc Pharmacy 56.9 ml/min; Est GFR (African American) 58.7 ml/min; Est GFR (Non-African American) 50.6 ml/min; Globulin 2.7 gm/dl (2.5-4.0); Magnesium 1.8 mg/dl (1.7-2.4); Potassium 3.5 mmol/L (3.5-5.1); Total Protein 5.4 gm/dl (6.0-8.3)
[2023-03-07 06:46] LABS: INR 1.3 (0.9-1.1); Prothrombin Time 13.9 Seconds (9.0-12.0)
[2023-03-07] MEDS: ASPIRIN 81 MG ECTAB PO SCH (08:31)
[2023-03-07] MEDS: ROSUVASTATIN CALCIUM 20 MG TAB PO SCH (08:32)
[2023-03-07] MEDS: MAGNESIUM CHLORIDE W/CALCIUM 64MG DELAYED REL TAB PO SCH (08:32)
[2023-03-07] MEDS: PANTOprazole 40 MG TAB PO SCH (08:32)
[2023-03-07] MEDS: POTASSIUM CHLORIDE CRTAB 20 MEQ TABCR PO SCH (08:32)
[2023-03-07] MEDS: buPROPion SR 150 MG TABCR PO SCH (08:32)
[2023-03-07] MEDS: METOPROLOL TARTRATE 100 MG TAB PO SCH ×2 (08:33→21:17)
[2023-03-07] MEDS: GABAPENTIN 600 MG TAB PO SCH ×2 (08:34→21:15)
[2023-03-07] MEDS: INSULIN ASPART PER UNIT CHARGE SC SCH ×4 (08:47→21:21)
[2023-03-07] MEDS ORDERED: NALOXONE HCL 0.4 MG/1 ML VIAL/CARP IV PRN (08:48)
[2023-03-07] MEDS: LANTUS PER UNIT CHARGE SQ SCH ×2 (08:51→21:22)
--- NOTE | 2023-03-07 10:56 | Hospitalist Progress Note ---
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 Right foot infection w/ necrosis- s/p transmetatarsal amputation - xray of foot showed no fracture or signs of osteo - foot MRI showed fluid collection around great toe proximal phalanx and third toe with edema concerning for osteomyelitis; no definite evidence of osteo in 4th and 5th toes - blood cx neg; wound cx growing staph species - ABX coverage as follows: - s/p 1 dose of ceftriaxone - d/c flagyl - continue cefepime and daptomycin - continue tylenol, oxycodone, dilaudid PRN for pain control - vascular consulted; bilateral LE arterial studies ordered KUN - Cr upon admission 1.7; baseline appears near 1.0 - renal US neg; s/p IVF - hold lasix and metformin - continue to monitor Uncontrolled type 2 diabetes mellitus - patient admitted with BSG in the 500's; hold home metformin - AG WNL, bicarb WNL, no sign of DKA - continue lantus and SSI Chronic heart failure with preserved ejection fraction - appears euvolemic on exam - lasix held d/t KUN; will continue to monitor Cr to determine when to restart lasix Sleep apnea - continue CPAP/Bipap Peripheral arterial disease - will continue aspirin Hypertension - stable - continue metoprolol Diet: carb consistent, heart healthy VTE ppx: lovenox Dispo: med/surg with tele Code: full (2) Cellulitis: (3) Right foot infection: (4) Uncontrolled type 2 diabetes mellitus with hyperglycemia, with long-term current use of insulin: (5) PAD (peripheral artery disease): (6) KUN (acute kidney injury): Admission and Anticipated Discharge Date Admission Date: March 05, 2023 Supervising Physician Co-Signing Physician Notes Resident Physician Supervision Note: I independently interviewed and examined the patient and verified the lei history and physical, reviewed labs and image studies and agree with resident findings and care plan. Chronic nocturia - reporting urinating multiple times at night. never had urology eval. advised to get referral for urology consult as outpatient. condom cath in place - wants to buy these for home use. Subjective Pt doing well this AM. His right foot/leg hurts 6/10. No other concerns; denies SOB, fevers, chills, or chest pain. Review of Systems Review of Systems: As per HPI Physical Exam Physical Exam: Constitutional: well appearing, no acute distress HEENT: normocephalic, no conjunctival injection CV: regular rhythm, regular rate, no murmur, no LE edema Respiratory: Clear to auscultation bilaterally. No rhonchi, wheezes, or crackles. No increased work of breathing MSK: right foot wrapped- dressing clean and dry. Erythema noted on lower right leg above surgical dressing. Left leg/foot w/o signs of infection. Skin: warm, dry Neuro: alert, no FND noted Results & Data Results & Data Vital Signs (Past 12 Hours) Vital Signs Temp Pulse Pulse Resp BP Pulse Ox O2 Del Method 03/07/23 08:05 37.3 C 94 H 18 119/65 96 Room Air 03/07/23 08:00 91 H 03/07/23 03:12 36.9 C 91 H 16 120/60 95 Room Air 03/06/23 23:17 37 C 77 16 101/58 L 95 Room Air Resident Activity Tracking Resident Involvement: Resident Care Provided Care Provided: Adult Hospital Medicine (2) Cellulitis Site of cellulitis: unspecified site Qualified Code(s): L03.90 - Cellulitis, unspecified
[2023-03-07] MEDS: CEFEPIME 2,000 MG in SYRINGE 0 ML IV SCH ×2 (11:07→21:16)
[2023-03-07] MEDS: oxyCODONE HCL IR 5 MG TAB (IMMEDIATE RELEASE) PO PRN (11:14)
[2023-03-07] MEDS ORDERED: ONDANSETRON INJ 2 MG/ML 2 ML VIAL IV PRN (14:24)
[2023-03-07] MEDS: SODIUM CHLORIDE 0.9% 1,000 ML IV SCH (16:49)
[2023-03-07] MEDS: ENOXAPARIN INJ 40 MG/0.4 ML SYR SQ SCH (16:50)
[2023-03-07] MEDS: DAPTOmycin 300 MG in SYRINGE 0 ML IV SCH (21:14)
[2023-03-08 06:23] LABS: Basophils # (auto) 0.04 K/uL (0.00-0.20); Basophils % (auto) 0.3 %; Eosinophils # (auto) 0.15 K/uL (0.00-0.50); Eosinophils % (auto) 1.1 %; Hematocrit (blood only) 33.4 % (42.0-52.0); Hemoglobin 11.1 g/dl (14.0-18.0); Immature Granulocytes # (auto) 0.06 K/uL (0.01-0.20); Immature Granulocytes % (auto) 0.5 %; Lymphocytes # (auto) 0.98 K/uL (1.20-3.40); Lymphocytes % (auto) 7.5 %; Mean Corpuscular Hemoglobin 28.2 pg (25.0-34.0); Mean Corpuscular Hgb Conc 33.2 g/dL (32.0-36.0); Mean Corpuscular Volume 84.8 fL (80.0-100.0); Mean Platelet Volume 10.4 fL (9.4-12.4); Monocytes # (auto) 1.19 K/uL (0.11-0.59); Monocytes % (auto) 9.1 %; Neutrophils % (auto) 81.5 %; Platelet Count 233 K/uL (130-400); RDW Coefficient of Variation 13.2 % (11.5-14.5); RDW Standard Deviation 40.9 fL (36.4-46.3); Red Blood Count 3.94 M/uL (4.70-6.10); White Blood Count 13.12 K/ul (4.8-10.8)
[2023-03-08 06:37] LABS: INR 1.4 (0.9-1.1); Prothrombin Time 14.6 Seconds (9.0-12.0)
[2023-03-08] MEDS: SODIUM CHLORIDE 0.9% 1,000 ML IV SCH ×2 (06:48→18:07)
[2023-03-08 06:52] LABS: Albumin Globulin Ratio 0.9 (0.9-2); Albumin Level 2.8 gm/dl (3.4-5.0); BUN Creatinine Ratio 11.1 (10-20); Bilirubin,Total 0.3 mg/dl (0.2-1.0); Calcium 8.7 mg/dl (8.6-10.3); Creatinine Clr Calc Pharmacy 55.4 ml/min; Est GFR (African American) 56.8 ml/min; Magnesium 1.9 mg/dl (1.7-2.4); Potassium 3.6 mmol/L (3.5-5.1); Total Protein 5.8 gm/dl (6.0-8.3)
--- NOTE | 2023-03-08 07:03 | Hospitalist Progress Note ---
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 Right foot infection w/ necrosis- s/p transmetatarsal amputation (03/06) - xray of foot showed no fracture or signs of osteo - foot MRI showed fluid collection around great toe proximal phalanx and third toe with edema concerning for osteomyelitis; no definite evidence of osteo in 4th and 5th toes - blood cx neg; wound cx growing MSSA - ABX coverage as follows: - s/p 1 dose of ceftriaxone, 3 days of dapto, 2 days of cefepime - narrowed ABX coverage to cefazolin 2g q8hr 03/08 - continue tylenol, oxycodone, dilaudid PRN for pain control - vascular consulted; bilateral LE arterial studies pending - pt will need closure of his wound per podiatry when appropriate KUN - Cr upon admission 1.7; baseline appears near 1.0 - renal US neg - continue to hold lasix and metformin; continue NS at 80 mL/hr - will need to continue to re-evaluate to determine when lasix should be resumed Uncontrolled type 2 diabetes mellitus - patient admitted with BSG in the 500's; hold home metformin - AG WNL, bicarb WNL, no signs of DKA - continue lantus and SSI Chronic heart failure with preserved ejection fraction - last echo 10/2022 showed EF 65-70% with LVH and mild - continues to be euvolemic on exam - lasix held d/t KUN; will continue to monitor Cr to determine when to restart lasix Sleep apnea - continue CPAP/Bipap Peripheral arterial disease - will continue aspirin Hypertension - stable - continue metoprolol Chronic nocturia - reporting urinating multiple times at night. never had urology eval. - advised to get referral for urology consult as outpatient. - condom cath in place - wants to buy these for home use. Diet: carb consistent, heart healthy VTE ppx: lovenox Dispo: med/surg with tele Code: full (2) Cellulitis: (3) Right foot infection: (4) Uncontrolled type 2 diabetes mellitus with hyperglycemia, with long-term current use of insulin: (5) PAD (peripheral artery disease): (6) KUN (acute kidney injury): Admission and Anticipated Discharge Date Admission Date: March 05, 2023 Supervising Physician Co-Signing Physician Notes Resident Physician Supervision Note: I independently interviewed and examined the patient and verified the lei history and physical, reviewed labs and image studies and agree with resident findings and care plan. Subjective Pt feeling about the same as yesterday- however, he said he was not nauseous this AM. He still had not eaten breakfast. He denies pain. Review of Systems Review of Systems: As per HPI Physical Exam Physical Exam: Constitutional: well appearing, no acute distress HEENT: normocephalic, no conjunctival injection CV: clinically well perfused Respiratory: no increased work of breathing MSK: right foot dressing clean and dry Skin: warm, dry, no rashes Neuro: alert, no FND noted Results & Data Results & Data Vital Signs (Past 12 Hours) Vital Signs Temp Pulse Pulse Resp BP Pulse Ox O2 Del Method 03/08/23 03:37 36.5 C 80 18 121/70 96 Room Air 03/08/23 03:17 16 03/07/23 23:27 36.3 C L 84 18 123/71 97 Room Air 03/07/23 23:18 71 12 98 03/07/23 21:58 82 03/07/23 19:58 36.6 C 78 18 110/63 98 Room Air FiO2 03/08/23 03:37 03/08/23 03:17 21 03/07/23 23:27 03/07/23 23:18 21 03/07/23 21:58 03/07/23 19:58 Resident Activity Tracking Resident Involvement: Resident Care Provided Care Provided: Adult Hospital Medicine (2) Cellulitis Site of cellulitis: unspecified site Qualified Code(s): L03.90 - Cellulitis, unspecified
[2023-03-08] MEDS: ROSUVASTATIN CALCIUM 20 MG TAB PO SCH (08:46)
[2023-03-08] MEDS: PANTOprazole 40 MG TAB PO SCH (08:47)
[2023-03-08] MEDS: buPROPion SR 150 MG TABCR PO SCH (08:47)
[2023-03-08] MEDS: ASPIRIN 81 MG ECTAB PO SCH (08:47)
[2023-03-08] MEDS: MAGNESIUM CHLORIDE W/CALCIUM 64MG DELAYED REL TAB PO SCH (08:47)
[2023-03-08] MEDS: GABAPENTIN 600 MG TAB PO SCH ×2 (08:48→20:36)
[2023-03-08] MEDS: METOPROLOL TARTRATE 100 MG TAB PO SCH ×2 (08:48→20:36)
[2023-03-08] MEDS: POTASSIUM CHLORIDE CRTAB 20 MEQ TABCR PO SCH (08:56)
[2023-03-08] MEDS: oxyCODONE HCL IR 5 MG TAB (IMMEDIATE RELEASE) PO PRN (08:57)
[2023-03-08] MEDS: ceFAZolin 2000MG 2,000 MG/15 ML SYR IV SCH ×2 (08:57→18:07)
[2023-03-08] MEDS: INSULIN ASPART PER UNIT CHARGE SC SCH ×4 (08:57→20:36)
[2023-03-08] MEDS: LANTUS PER UNIT CHARGE SQ SCH ×2 (08:58→20:35)
--- NOTE | 2023-03-08 10:42 | Consultation ---
Date of Consultation March 08, 2023 Assessment & Plan (1) PAD (peripheral artery disease): Pt has not yet had any imaging to eval his arterial flow. Arterial US from 2021 indicated diffuse disease. Pt has no sx of claudication CANDY VENDOR. Exam demonstrates no sign of ischemia. Arterial US was ordered yesterday by Dr Yu, but not yet completed. Will make further recommendations once this is completed. History of Present Illness Reason for Consultation: PAD, R foot gangrene Attending Physician: Makenna Bravo MD History of Present Illness 57 yo m with hx of HTN, DMII, CHF, CKD, spinal stenosis, osteoarthritis, depression, hyperlipidemia, JENNIFFER, carotid stenosis, admitted with R foot gangrene, seen in consultation today for possible PAD. Pt is a poor historian. Pt has had ulcerations in BLE in past(as recently as 2021), and was following at the [facility] center for wound care, which resulted in healing of his wounds. He did see Dr Kaushal Braga at that time and had an arterial US performed. He was not felt to have significant arterial insufficiency to warrant intervention. His wounds did heal. Pt states this time his R foot turned black "overnight." He states his checks his feet every morning and did not see anything amiss, but then he suddenly had black toes. Unable to tell me exactly when this occurred. Denies any hx of peripheral arterial interventions, fever, chest pain, SOB, abd pain, N/V, rest pain, claudication, other complaints. Prior to this admission, pt was ambulatory without assistance. He did undergo R foot TMA by Dr Ifeanyi Garcia a few days ago. Currently c/o pain in BL heels from being in bed. Pt follows with Dr Red Marsh for cardiology, who also follows his carotid stenosis. Per pt, last carotid US was within the past 3 months. No arterial US performed yet. Prior US performed in 2021 indicated mild/moderate diffuse disease. Allergies Allergy/AdvReac Type Severity Reaction Status Date / Time levofloxacin AdvReac Intermediate GI SYMPTOMS Verified 02/01/23 13:37 pneumococcal vaccine AdvReac Intermediate GI Verified 02/01/23 13:37 SYMPTOMS-OK IF MULTIPLE VACCINES GIVEN SEPARATELY tetanus toxoid, adsorbed AdvReac Intermediate TETANUS/DIPTHERIA/PERTUSSIS-GI Verified 02/01/23 13:37 UPSTE/BODY ACHES Home Medications Medication Instructions Recorded Confirmed Type acetaminophen 500 mg tablet 500 - 1,000 mg PO Q8 PRN Pain 01/30/22 03/05/23 History (Tylenol Extra Strength) cyanocobalamin (vitamin B-12) 1,000 mcg PO QAM 01/30/22 03/05/23 History 1,000 mcg tablet (Vitamin B-12) gabapentin 600 mg tablet 600 mg PO AMHS 01/30/22 03/05/23 History metformin 1,000 mg tablet 1,000 mg PO BID 01/30/22 03/05/23 History pantoprazole 40 mg tablet,delayed 40 mg PO QAM 01/30/22 03/05/23 History release potassium chloride 20 mEq 40 meq (2 x 20 mEq) PO QAM #60 tabs 02/09/22 03/05/23 Rx tablet,extended release(part/cryst) aspirin 81 mg tablet,delayed 81 mg PO DAILY 03/08/22 03/05/23 History release (Adult Aspirin Regimen) cholecalciferol (vitamin D3) 25 25 mcg PO QAM 03/08/22 03/05/23 History mcg (1,000 unit) capsule furosemide 20 mg tablet 20 mg PO QAM 11/12/22 03/05/23 History magnesium chloride 64 mg 64 mg PO QAM #30 tabs 11/13/22 03/05/23 Rx (magnesium chloride) tablet,delayed release (Mag 64) metoprolol tartrate 100 mg tablet 100 mg PO BID #60 tabs 11/13/22 03/05/23 Rx blood sugar diagnostic 12/07/22 02/01/23 History blood-glucose sensor (Dexcom G6 12/07/22 02/01/23 History Sensor device) insulin aspar prot-insulin aspart See Rx Instructions subcut BID #60 12/07/22 03/05/23 Rx 100 unit/mL (70-30) subcutaneous mL pen (Novolog Mix 70-30FlexPen U-100) pen needle, diabetic 32 gauge x 12/07/22 02/01/23 History 5/32" (BD Ultra-Fine Fanny Pen Needle) rosuvastatin 40 mg tablet 40 mg PO QAM 12/07/22 03/05/23 History BiPap Machine 03/05/23 03/05/23 History bupropion HCl 200 mg tablet,12 hr 300 mg PO QAM 03/05/23 03/05/23 History sustained-release (Wellbutrin SR) Patient History Medical History KUN (acute kidney injury) Acute hyperglycemia Elevated troponin Elevated LFTs Gram-negative bacteremia Infection of total left knee replacement Leg swelling Fatigue Venous stasis ulcer Diabetic ulcer of left heel Seizure-like activity History of infection of total joint prosthesis of knee GERD (gastroesophageal reflux disease) Hx MRSA infection 2018> resolved Hx of diabetic foot ulcer Bulging lumbar disc GERD (gastroesophageal reflux disease) History of anemia Attention deficit disorder (ADD) Anxiety and depression History of kidney stones Cardiac murmur FOLLOWS WITH DR. MARSH Serum potassium elevated Osteoarthritis Sleep apnea CPAP Acute on chronic congestive heart failure CHF (congestive heart failure) Obstructive sleep apnea syndrome Hyperlipidemia HTN (hypertension) Acute diastolic congestive heart failure Infection of prosthetic right knee joint Hypokalemia Streptococcal sepsis Hypophosphatemia Hyponatremia Ulcer of left midfoot Acquired bilateral hammer toes Callus Diabetic ulcer of left foot Cellulitis of left leg Pleural effusion DM type 2 (diabetes mellitus, type 2) Acquired claw toe of right foot Testicular pain Low back pain with sciatica History of diabetic ulcer of foot Dysesthesia Diabetic peripheral neuropathy associated with type 2 diabetes mellitus Surgical History History of tooth extraction History of open reduction and internal fixation (ORIF) procedure RT HAND S/P revision of total knee LEFT History of total left knee replacement History of revision of total replacement of knee joint (05/23/12) Amputated great toe of right foot History of colonoscopy History of wisdom tooth extraction Family History Father Family history of diabetes mellitus Other No family history of adverse response to anesthesia No pertinent family history Social History Smoking Status: Never smoker Second Hand Exposure: Yes; Do You Dip or Chew Tobacco: No; Hx Alcohol Use: No Hx Substance Use: No Preferred Language: Dominican Communication Ability: Effective Visual Impairment: Limited Dispatch Lead Required: No Beliefs That Will Affect Care: None marital status: Current Living Situation: Spouse and Family current occupational status: employed current occupation: [employer] , 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 How many Children do You have: 2 Feels Safe at Home: Yes Safety Concerns: Feels Safe At This Time Diet: diabetic during the past year weight has: remained stable Assistive Devices: Glasses and Walker Review of Systems Review of Systems: All systems reviewed & are unremarkable except as noted in HPI & below Physical Exam Constitutional: WD/WN, vitals as above cooperative and comfortable; not in distress ENMT: Ears: no hearing impairment Neck: trachea midline Respiratory: normal respiratory effort, lungs clear to auscultation Cardiovascular: Rate/Rhythm: regular rate and regular rhythm Vessels: femoral pulses present, posterior tibial pulses present (easily dopplerable, biphasic BLE), dorsalis pedis pulses present (easily dopplerable, biphasic BLE) and radial pulses present; + abnormal peripheral pulses Extremities: normal capillary refill (LLE normal, RLE large dressing in place. ) Gastrointestinal (Abdomen): Inspection/Auscultation: abdomen normal to inspection and normal bowel sounds Percussion/Palpation: abdomen soft; abdomen nontender Musculoskeletal: no cyanosis or clubbing, extremities motor strength 5/5 Skin: no rashes, warm and dry (RLE surgical wound dressing in place) Neurologic: moves all extremities and awake; no focal motor deficits and not confused Psychiatric: A+Ox3, euthymic affect Results & Data Vital Signs (Past 12 Hours) Vital Signs Temp Pulse Pulse Pulse Resp BP Pulse Ox 03/08/23 07:38 36.7 C 89 16 134/65 94 03/08/23 03:37 36.5 C 80 18 121/70 96 03/08/23 03:17 16 03/07/23 23:27 36.3 C L 84 18 123/71 97 03/07/23 23:18 71 12 98 O2 Del Method FiO2 03/08/23 07:38 Room Air 03/08/23 03:37 Room Air 03/08/23 03:17 21 03/07/23 23:27 Room Air 03/07/23 23:18 21
[2023-03-08] MEDS: ENOXAPARIN INJ 40 MG/0.4 ML SYR SQ SCH (16:17)
--- NOTE | 2023-03-08 17:13 | Ultrasound Report ---
ULTRASOUND BILATERAL LOWER EXTREMITY ARTERIAL; ANKLE BRACHIAL INDICES CLINICAL HISTORY: Nonhealing wound. COMPARISON STUDY: No prior studies are available for comparison at the time of dictation. TECHNIQUE: Real-time, grayscale and color Doppler sonography of the arteries of the right and left lo wer extremity is performed from the inguinal crease to the foot. Ankle brachial indices were assessed . FINDINGS: Ankle brachial indices: Right brachial pressure measures 130 and left brachial pressure measures 123. The dorsalis pedis arteries were not compressible in either legs. Pressures in the right posterior t ibial artery measure 153 for an JOAQUIN of 1.18 and pressures in the left posterior tibial artery measure 129 for an JOAQUIN of 0.99. Right lower extremity: Atherosclerotic plaque and irregularity is seen throughout the arteries of the right lower extremity. There are monophasic to biphasic waveforms in the common femoral artery with velocities measuring up to 108 cm/s. The profunda femoris artery is patent with velocities measuring up to 102 cm/s. There are monophasic to biphasic waveforms seen throughout the superficial femoral ar letha with velocities measuring up to 133 cm/s. The popliteal artery is patent with velocities measuri ng up to 121 cm/s. There is three-vessel runoff to the foot. There are monophasic arterial waveforms in the calf vessels with slightly blunted arterial upstrokes. Velocities within the calf arteries noris sure up to 169 cm/s. The dorsalis pedis artery is patent with velocities measure up to 151 cm/s. Left lower extremity: Atherosclerotic plaque and irregularity is seen throughout the arteries of the left lower extremity. There are triphasic waveforms in the common femoral artery with velocities fortino uring up to 118 cm/s. The profunda femoris artery is patent with velocities measuring up to 63 cm/s. There are triphasic waveforms throughout the superficial femoral artery with velocities measuring up to 141 cm/s. There are triphasic arterial waveforms in the popliteal artery with velocities measuring up to 95 cm/s. There is three-vessel runoff to the foot. [id number] waveforms are seen t hroughout the calf arteries. Arterial upstroke is slightly blunted. Velocities within the calf arteri es measure up to 136 cm/s. The dorsalis pedis artery is patent with velocities elevated velocities me asuring up to 312 cm/s. IMPRESSION: 1. Atherosclerotic plaque with changes of peripheral vascular disease as above. 2. Significantly elevated velocities within the left dorsalis pedis artery indicate stenosis. 3. No additional foci of high-grade stenosis identified throughout the arteries of the right or left lower extremity. No focal vessel cut off is seen. 4. Ankle brachial indices as above. Dictated: 03/08/2023 4:36 PM Transcribed: 03/08/2023 5:08 PM Goldy [id number] Electronically signed by: Blaise Vinson M.D. 03/08/2023 5:12 PM
--- NOTE | 2023-03-08 22:15 | Orthopedic Progress Note ---
Date of Service March 08, 2023 Assessment & Plan (1) Necrotic toes: Plan: Patient seen, evaluated, and treated. Reviewed duplex ultra sound result. Appreciate Vascular consult. Patient scheduled for delayed primary closure 03/10/23. Thank you for allowing me to participate in the care of this Patient. (2) Cellulitis: (3) PAD (peripheral artery disease): (4) Right foot infection: (5) Uncontrolled type 2 diabetes mellitus with hyperglycemia, with long-term current use of insulin: Admission and Anticipated Discharge Date Admission Date: March 05, 2023 Subjective Patient seen at bedside resting comfortably. Patient is status post day #2 TMA right foot. Patient completed vascular studies today. Patient's is present who helps with history and care. Review of Systems Review of Systems: All systems reviewed & are unremarkable except as noted in Subjective Physical Exam Constitutional: well developed, cooperative and comfortable Eyes: normal visual garrett by confrontation Neck: trachea midline Respiratory: normal respiratory effort Cardiovascular: Rate/Rhythm: regular rate and regular rhythm Vessels: posterior tibial pulses present and dorsalis pedis pulses present Musculoskeletal: Extremities: + amputation noted (Right foot TMA) Skin: + ulcer (Right medial foot and ankle par tial thickness ulcers) and + wound (Right transmetatarsal amputation site open) Neurologic: moves all extremities (Absent lower extremity epicritic sensation) Psychiatric: Orientation: alert and oriented x 3 Results & Data Vital Signs (Past 12 Hours) Vital Signs Temp Pulse Pulse Pulse Resp BP BP 03/08/23 19:00 36.9 C 82 20 120/71 03/08/23 16:54 80 03/08/23 16:20 36.6 C 79 18 131/66 03/08/23 11:27 37.0 C 80 16 102/60 03/08/23 10:35 81 Pulse Ox O2 Del Method 03/08/23 19:00 95 Room Air 03/08/23 16:54 03/08/23 16:20 96 Room Air 03/08/23 11:27 95 Room Air 03/08/23 10:35 Diagnostic Findings [place], [place] [phone] Ultrasound Report Patient: KY LOMBARDI Admit Date: 03/05/23 MR#: [id number] Address1: [address] [place] [address] Acct ID:[id number] Address2: Date: 1965 [facility] Zip: [place] [address] Age: 57 Location: 2W Sex: M Room/Bed: [facility] Att Phy: Makenna Bravo MD Diagnosis: RIGHT FOOT INFECTION, HYPERGLYCEMIA Kadi Phy: Kaushal Johnson MD Service Date: 03/08/23 Fam Phy: Interpreting Phy: Blaise Vinson MDAdmit Phy: Luis Lopez MD Ordering Phy: Milo Yu M.D. cc: ~ ULTRASOUND BILATERAL LOWER EXTREMITY ARTERIAL; ANKLE BRACHIAL INDICES CLINICAL HISTORY: Nonhealing wound. COMPARISON STUDY: No prior studies are available for comparison at the time of dictation. TECHNIQUE: Real-time, grayscale and color Doppler sonography of the arteries of the right and left lower extremity is performed from the inguinal crease to the foot. Ankle brachial indices were assessed. FINDINGS: Ankle brachial indices: Right brachial pressure measures 130 and left brachial pressure measures 123. The dorsalis pedis arteries were not compressible in either legs. Pressures in the right posterior tibial artery measure 153 for an JOAQUIN of 1.18 and pressures in the left posterior tibial artery measure 129 for an JOAQUIN of 0.99. Right lower extremity: Atherosclerotic plaque and irregularity is seen throughout the arteries of the right lower extremity. There are monophasic to biphasic waveforms in the common femoral artery with velocities measuring up to 108 cm/s. The profunda femoris artery is patent with velocities measuring up to 102 cm/s. There are monophasic to biphasic waveforms seen throughout the superficial femoral artery with velocities measuring up to 133 cm/s. The popliteal artery is patent with velocities measuring up to 121 cm/s. There is three-vessel runoff to the foot. There are monophasic arterial waveforms in the calf vessels with slightly blunted arterial upstrokes. Velocities within the calf arteries measure up to 169 cm/s. The dorsalis pedis artery is patent with velocities measure up to 151 cm/s. Left lower extremity: Atherosclerotic plaque and irregularity is seen throughout the arteries of the left lower extremity. There are triphasic waveforms in the common femoral artery with velocities measuring up to 118 cm/s. The profunda femoris artery is patent with velocities measuring up to 63 cm/s. There are triphasic waveforms throughout the superficial femoral artery with velocities m easuring up to 141 cm/s. There are triphasic arterial waveforms in the popliteal artery with velocities measuring up to 95 cm/s. There is three-vessel runoff to the foot. [id number] waveforms are seen throughout the calf arteries. Arterial upstroke is slightly blunted. Velocities within the calf arteries measure up to 136 cm/s. The dorsalis pedis artery is patent with velocities elevated velocities measuring up to 312 cm/s. IMPRESSION: 1. Atherosclerotic plaque with changes of peripheral vascular disease as above. 2. Significantly elevated velocities within the left dorsalis pedis artery indicate stenosis. 3. No additional foci of high-grade stenosis identified throughout the arteries of the right or left lower extremity. No focal vessel cut off is seen. 4. Ankle brachial indices as above. Dictated: 03/08/2023 4:36 PM Transcribed: 03/08/2023 5:08 PM Goldy [id number] Electronically signed by: Blaise Vinson M.D. 03/08/2023 5:12 PM Dictated: 03/08/23 1636 Transcribed: 03/08/23 1708 (2) Cellulitis Site of cellulitis: unspecified site Qualified Code(s): L03.90 - Cellulitis, unspecified
[2023-03-09] MEDS: ceFAZolin 2000MG 2,000 MG/15 ML SYR IV SCH ×3 (02:23→17:12)
[2023-03-09] MEDS: SODIUM CHLORIDE 0.9% 1,000 ML IV SCH ×2 (02:23→18:01)
[2023-03-09 05:35] LABS: Hematocrit (blood only) 34.4 % (42.0-52.0); Mean Corpuscular Hemoglobin 27.2 pg (25.0-34.0); Mean Corpuscular Volume 85.1 fL (80.0-100.0); Mean Platelet Volume 10.2 fL (9.4-12.4); Platelet Count 244 K/uL (130-400); RDW Coefficient of Variation 13.2 % (11.5-14.5); RDW Standard Deviation 41.4 fL (36.4-46.3); Red Blood Count 4.04 M/uL (4.70-6.10); White Blood Count 11.81 K/ul (4.8-10.8)
[2023-03-09 05:51] LABS: BUN Creatinine Ratio 10.6 (10-20); Calcium 8.1 mg/dl (8.6-10.3); Creatinine Clr Calc Pharmacy 59.7 ml/min; Est GFR (African American) 62.2 ml/min; Est GFR (Non-African American) 53.7 ml/min; Potassium 3.6 mmol/L (3.5-5.1)
--- NOTE | 2023-03-09 06:58 | Hospitalist Progress Note ---
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 Right foot infection w/ necrosis- s/p transmetatarsal amputation (03/06) Right foot MRI showed fluid collection around great toe proximal phalanx and third toe with edema concerning for osteomyelitis. Wound cx MSSA. Blood cultures negative. Duplex studies as above. Abx: s/p 1 dose of ceftriaxone, 3 days of dapto, 2 days of cefepime narrowed abx coverage to cefazolin 2g q8hr 03/08 - continue tylenol, oxycodone, dilaudid PRN for pain control - vascular consulted - appreciate recs - pt will need closure of his wound per podiatry when appropriate, plan for 03/11 KUN - Cr upon admission 1.7; baseline appears near 1.0 - renal US neg - continue to hold lasix and metformin; continue NS at 80 mL/hr - will need to continue to re-evaluate to determine when lasix should be resumed Uncontrolled type 2 diabetes mellitus Patient admitted with BSG in the 500s. HbA1c 16.2. No signs of acidosis. Lantus and SSI while inpatient. Holding metformin for now. Chronic heart failure with preserved ejection fraction Last echo 10/2022 showed EF 65-70% with LVH and mild - continues to be euvolemic on exam - lasix held d/t KUN; will continue to monitor Cr to determine when to restart lasix Sleep apnea - continue CPAP/BiPAP Peripheral arterial disease - will continue aspirin Hypertension - stable - continue metoprolol Diet: carb consistent, heart healthy VTE ppx: lovenox Dispo: med/surg with tele Code: full (2) Cellulitis: (3) Right foot infection: (4) Uncontrolled type 2 diabetes mellitus with hyperglycemia, with long-term current use of insulin: (5) PAD (peripheral artery disease): (6) KUN (acute kidney injury): Admission and Anticipated Discharge Date Admission Date: March 05, 2023 Supervising Physician Co-Signing Physician Notes Resident Physician Supervision Note: I independently interviewed and examined the patient and verified the lei history and physical, reviewed labs and image studies and agree with resident findings and care plan. Subjective Patient seen at bedside this AM. Eager for discharge, but understanding that he needs to stay at this time. Denies any pain, fevers, chills, CP, or SOB. Review of Systems 2 Review of Systems: As per HPI Physical Exam 2 Physical Exam: Constitutional: well appearing, no acute distress HEENT: normocephalic, no conjunctival injection CV: RRR no m/r/g clinically well perfused Respiratory: CTAB no wheezing no increased work of breathing Abd: soft, non-tender, non-distended MSK: right foot dressing clean and dry Skin: warm, dry, no rashes Neuro: alert, no FND noted Results & Data Results & Data Laboratory Results 03/09/23 05:11 03/09/23 05:11 Diagnostic Findings Duplex Scan Lower Extremity Artery 03/08/23 00:00 FINDINGS: Ankle brachial indices: Right brachial pressure measures 130 and left brachial pressure measures 123. The dorsalis pedis arteries were not compressible in either legs. Pressures in the right posterior tibial artery measure 153 for an JOAQUIN of 1.18 and pressures in the left posterior tibial artery measure 129 for an JOAQUIN of 0.99. Right lower extremity: Atherosclerotic plaque and irregularity is seen throughout the arteries of the right lower extremity. There are monophasic to biphasic waveforms in the common femoral artery with velocities measuring up to 108 cm/s. The profunda femoris artery is patent with velocities measuring up to 102 cm/s. There are monophasic to biphasic waveforms seen throughout the superficial femoral artery with velocities measuring up to 133 cm/s. The popliteal artery is patent with velocities measuring up to 121 cm/s. There is three-vessel runoff to the foot. There are monophasic arterial waveforms in the calf vessels with slightly blunted arterial upstrokes. Velocities within the calf arteries measure up to 169 cm/s. The dorsalis pedis artery is patent with velocities measure up to 151 cm/s. Left lower extremity: Atherosclerotic plaque and irregularity is seen throughout the arteries of the left lower extremity. There are triphasic waveforms in the common femoral artery with velocities measuring up to 118 cm/s. The profunda femoris artery is patent with velocities measuring up to 63 cm/s. There are triphasic waveforms throughout the superficial femoral artery with velocities measuring up to 141 cm/s. There are triphasic arterial waveforms in the popliteal artery with velocities measuring up to 95 cm/s. There is three-vessel runoff to the foot. [id number] waveforms are seen throughout the calf arteries. Arterial upstroke is slightly blunted. Velocities within the calf arteries measure up to 136 cm/s. The dorsalis pedis artery is patent with velocities elevated velocities measuring up to 312 cm/s. IMPRESSION: 1. Atherosclerotic plaque with changes of peripheral vascular disease as above. 2. Significantly elevated velocities within the left dorsalis pedis artery indicate stenosis. 3. No additional foci of high-grade stenosis identified throughout the arteries of the right or left lower extremity. No focal vessel cut off is seen. 4. Ankle brachial indices as above. Resident Activity Tracking Resident Involvement: Resident Care Provided Care Provided: Adult Hospital Medicine (2) Cellulitis Site of cellulitis: unspecified site Qualified Code(s): L03.90 - Cellulitis, unspecified
[2023-03-09] MEDS: ASPIRIN 81 MG ECTAB PO SCH (08:18)
[2023-03-09] MEDS: buPROPion SR 150 MG TABCR PO SCH (08:19)
[2023-03-09] MEDS: MAGNESIUM CHLORIDE W/CALCIUM 64MG DELAYED REL TAB PO SCH (08:19)
[2023-03-09] MEDS: ROSUVASTATIN CALCIUM 20 MG TAB PO SCH (08:19)
[2023-03-09] MEDS: METOPROLOL TARTRATE 100 MG TAB PO SCH ×2 (08:19→21:13)
[2023-03-09] MEDS: PANTOprazole 40 MG TAB PO SCH (08:19)
[2023-03-09] MEDS: HYDROmorphone INJ 0.5 MG/0.5 ML SYR IV PRN (08:19)
[2023-03-09] MEDS: POTASSIUM CHLORIDE CRTAB 20 MEQ TABCR PO SCH (08:19)
[2023-03-09] MEDS: GABAPENTIN 600 MG TAB PO SCH ×2 (08:19→21:13)
[2023-03-09] MEDS: INSULIN ASPART PER UNIT CHARGE SC SCH ×4 (09:06→21:13)
[2023-03-09] MEDS: LANTUS PER UNIT CHARGE SQ SCH ×2 (09:07→21:13)
[2023-03-09] MEDS: ENOXAPARIN INJ 40 MG/0.4 ML SYR SQ SCH (15:19)
--- NOTE | 2023-03-09 17:32 | Anesthesiology Consultation ---
Date of Service March 09, 2023 Assessment & Plan (1) Encounter for pre-operative examination: Chart Review Chart Review: Acceptable Risk for Surgery History Surgery Operation Date: 03/06/23 07:00 Proposed Procedures p Right Foot Amputation Transmetatarsal - Ifeanyi Garcia DPM, Operation Date: 03/10/23 07:30 Proposed Procedures p Right Foot Delayed Primary Closure - Ifeanyi Garcia DPM, MS Height/Weight Height: 5 ft 11 in Weight: 78.8 kg Allergies Allergy/AdvReac Type Severity Reaction Status Date / Time levofloxacin AdvReac Intermediate GI SYMPTOMS Verified 02/01/23 13:37 pneumococcal vaccine AdvReac Intermediate GI Verified 02/01/23 13:37 SYMPTOMS-OK IF MULTIPLE VACCINES GIVEN SEPARATELY tetanus toxoid, adsorbed AdvReac Intermediate TETANUS/DIPTHERIA/PERTUSSIS-GI Verified 02/01/23 13:37 UPSTE/BODY ACHES Medications Home Medications Medication Instructions Recorded Confirmed Last Taken acetaminophen 500 mg tablet 500 - 1,000 mg PO Q8 PRN Pain 01/30/22 03/05/23 Unknown (Tylenol Extra Strength) cyanocobalamin (vitamin B-12) 1,000 mcg PO QAM 01/30/22 03/05/23 03/05/23 1,000 mcg tablet (Vitamin B-12) gabapentin 600 mg tablet 600 mg PO AMHS 01/30/22 03/05/23 03/05/23 metformin 1,000 mg tablet 1,000 mg PO BID 01/30/22 03/05/23 03/05/23 pantoprazole 40 mg tablet,delayed 40 mg PO QAM 01/30/22 03/05/23 03/05/23 release potassium chloride 20 mEq 40 meq (2 x 20 mEq) PO QAM #60 tabs 02/09/22 03/05/23 03/05/23 tablet,extended release(part/cryst) aspirin 81 mg tablet,delayed 81 mg PO DAILY 03/08/22 03/05/23 03/05/23 release (Adult Aspirin Regimen) cholecalciferol (vitamin D3) 25 25 mcg PO QAM 03/08/22 03/05/23 03/05/23 mcg (1,000 unit) capsule furosemide 20 mg tablet 20 mg PO QAM 11/12/22 03/05/23 03/05/23 magnesium chloride 64 mg 64 mg PO QAM #30 tabs 11/13/22 03/05/23 03/05/23 (magnesium chloride) tablet,delayed release (Mag 64) metoprolol tartrate 100 mg tablet 100 mg PO BID #60 tabs 11/13/22 03/05/23 03/05/23 blood sugar diagnostic 12/07/22 02/01/23 Unknown blood-glucose sensor (Dexcom G6 12/07/22 02/01/23 Unknown Sensor device) insulin aspar prot-insulin aspart See Rx Instructions subcut BID #60 12/07/22 03/05/23 03/05/23 100 unit/mL (70-30) subcutaneous mL pen (Novolog Mix 70-30FlexPen U-100) pen needle, diabetic 32 gauge x 12/07/22 02/01/23 Unknown " (BD Ultra-Fine Fanny Pen Needle) rosuvastatin 40 mg tablet 40 mg PO QAM 12/07/22 03/05/23 03/05/23 BiPap Machine 03/05/23 03/05/23 Unknown bupropion HCl 200 mg tablet,12 hr 300 mg PO QAM 03/05/23 03/05/23 03/05/23 sustained-release (Wellbutrin SR) Active Medications Generic Name Dose Route Start Last Admin Trade Name Freq PRN Reason Stop Dose Admin Acetaminophen 650 mg 03/05/23 19:41 03/07/23 08:46 Acetaminophen 325 Mg Tab PO 04/04/23 19:44 650 mg Q6H PRN Administration pain(1-4),headache,fever Aspirin 81 mg 03/06/23 09:00 03/09/23 08:18 Aspirin 81 Mg Ectab PO 04/05/23 08:59 81 mg DAILY ALL Administration Bupropion HCl 300 mg 03/06/23 09:00 03/09/23 08:19 Bupropion Sr 150 Mg Tabcr PO 04/05/23 08:59 300 mg QAM ALL Administration Enoxaparin Sodium 40 mg 03/07/23 14:30 03/09/23 15:19 Enoxaparin Inj 40 Mg/0.4 Ml Syr SQ 04/06/23 14:29 40 mg Q24H ALL Administration Gabapentin 600 mg 03/05/23 21:23 03/09/23 08:19 Gabapentin 600 Mg Tab PO 04/04/23 21:22 600 mg AMHS ALL Administration Hydromorphone HCl 0.5 mg 03/05/23 19:41 03/09/23 08:19 Hydromorphone Inj 0.5 Mg/0.5 Ml Syr IV 03/19/23 19:40 0.5 mg Q6H PRN Administration Pain(5+) Sodium Chloride 1,000 mls @ 80 mls/hr 03/07/23 16:45 03/09/23 14:54 Nss IV 04/06/23 16:44 Infused .[id number] ALL Infusion Cefazolin Sodium 2,000 mg in 15 mls @ 3.75 mls/min 03/08/23 09:00 03/09/23 17:12 Ancef 2000mg IV 03/15/23 08:59 3.75 mls/min Q8H ALL Administration Insulin Aspart 0 units 03/06/23 21:00 03/09/23 13:00 Insulin Aspart Per Unit Charge SC 04/05/23 20:59 15 units ACHS ALL Administration Insulin Glargine 15 units 03/07/23 21:00 03/09/23 09:07 Lantus Per Unit Charge SQ 04/06/23 20:59 15 units BID ALL Administration Magnesium Chloride 64 mg 03/06/23 09:00 03/09/23 08:19 Magnesium Chloride W/Calcium 64mg Delayed Rel Tab PO 04/05/23 08:59 64 mg QAM ALL Administration Metoprolol Tartrate 100 mg 03/05/23 21:23 03/09/23 08:19 Metoprolol Tartrate 100 Mg Tab PO 04/04/23 21:22 100 mg BID ALL Administration Ondansetron HCl 4 mg 03/07/23 14:24 03/07/23 14:38 Ondansetron Inj 2 Mg/Ml 2 Ml Vial IV 04/06/23 14:23 4 mg Q6H PRN Administration Nausea And Vomiting Oxycodone HCl 5 mg 03/07/23 08:47 03/08/23 08:57 Oxycodone Hcl Ir 5 Mg Tab (Immediate Release) PO 03/21/23 08:46 5 mg Q6H PRN Administration Pain Pantoprazole Sodium 40 mg 03/06/23 09:00 03/09/23 08:19 Pantoprazole 40 Mg Tab PO 04/05/23 08:59 40 mg QAM ALL Administration Potassium Chloride 40 meq 03/06/23 09:00 03/09/23 08:19 Potassium Chloride Crtab 20 Meq Tabcr PO 04/05/23 08:59 40 meq QAM ALL Administration Rosuvastatin Calcium 40 mg 03/06/23 09:00 03/09/23 08:19 Rosuvastatin Calcium 20 Mg Tab PO 04/05/23 08:59 40 mg QAM ALL Administration NPO Date Last Intake of Fluids: 03/06/23 Time Last Intake of Fluids: 07:30 Last Intake of Fluids Comment: sips with meds Date Last Intake of Solids: 03/05/23 Past Medical History Medical History KUN (acute kidney injury) Acute hyperglycemia Elevated troponin Elevated LFTs Gram-negative bacteremia Infection of total left knee replacement Leg swelling Fatigue Venous stasis ulcer Diabetic ulcer of left heel Seizure-like activity History of infection of total joint prosthesis of knee GERD (gastroesophageal reflux disease) Hx MRSA infection 2018> resolved Hx of diabetic foot ulcer Bulging lumbar disc GERD (gastroesophageal reflux disease) History of anemia Attention deficit disorder (ADD) Anxiety and depression History of kidney stones Cardiac murmur FOLLOWS WITH DR. GREENWOOD Serum potassium elevated Osteoarthritis Sleep apnea CPAP Acute on chronic congestive heart failure CHF (congestive heart failure) Obstructive sleep apnea syndrome Hyperlipidemia HTN (hypertension) Acute diastolic congestive heart failure Infection of prosthetic right knee joint Hypokalemia Streptococcal sepsis Hypophosphatemia Hyponatremia Ulcer of left midfoot Acquired bilateral hammer toes Callus Diabetic ulcer of left foot Cellulitis of left leg Pleural effusion DM type 2 (diabetes mellitus, type 2) Acquired claw toe of right foot Testicular pain Low back pain with sciatica History of diabetic ulcer of foot Dysesthesia Diabetic peripheral neuropathy associated with type 2 diabetes mellitus Past Family History Family History Father Family history of diabetes mellitus Other No family history of adverse response to anesthesia No pertinent family history Past Surgical History Surgical History History of tooth extraction History of open reduction and internal fixation (ORIF) procedure RT HAND S/P revision of total knee LEFT History of total left knee replacement History of revision of total replacement of knee joint (05/23/12) Amputated great toe of right foot History of colonoscopy History of wisdom tooth extraction Social History Smoking Status: Never smoker Do You Dip or Chew Tobacco: No Hx Alcohol Use: No Alcohol type: beer alcohol intake frequency: a few times a month Hx Substance Use: No substance use type: does not use Physical Exam Vital Signs Last Vital Signs Temp 36.6 C 03/09/23 16:31 Pulse 59 L 03/09/23 16:31 Resp 16 03/09/23 16:31 BP 117/58 L 03/09/23 16:31 Pulse Ox 95 03/09/23 16:31 O2 Del Method Room Air 03/09/23 16:31 O2 Flow Rate 4 03/06/23 17:25 FiO2 21 03/08/23 23:04 Testing Laboratory Results 03/09/23 05:11 03/09/23 05:11 PT 14.6 Seconds (9.0-12.0) H 03/08/23 05:50 INR 1.4 (0.9-1.1) H 03/08/23 05:50 Urine Color Yellow 03/06/23 05:20 Urine Appearance Clear (Clear) 03/06/23 05:20 Urine pH 7.5 (4.5-7.5) 03/06/23 05:20 Ur Specific [place] 1.015 (1.000-1.030) 03/06/23 05:20 Urine Protein 2+ (Negative) H 03/06/23 05:20 Urine Glucose (UA) 3+ (Negative) H 03/06/23 05:20 Urine Ketones Trace (Negative) H 03/06/23 05:20 Urine Nitrite Negative (Negative) 03/06/23 05:20 Ur Leukocyte Esterase Negative (Negative) 03/06/23 05:20 Urine WBC (Auto) 1-5 /hpf (0-5) 03/06/23 05:20 Urine RBC (Auto) 0-4 /hpf (0-4) 03/06/23 05:20 U Hyaline Cast (Auto) 1-5 /lpf (0-5) 03/06/23 05:20 U Epithel Cells (Auto) >30 /lpf (0-5) H 03/06/23 05:20 Urine Bacteria (Auto) Negative (Negative) 03/06/23 05:20 03/06/23 16:40 Gram Stain - Final Foot,Right Aerobic and Anaerobic Culture - Preliminary Staphylococcus aureus Group G Beta Strep 03/06/23 16:40 Gram Stain - Final Foot,Right Aerobic and Anaerobic Culture - Preliminary Staphylococcus aureus 03/05/23 Unknown Gram Stain - Final Foot,Right Aerobic and Anaerobic Culture - Preliminary Staphylococcus aureus 03/05/23 15:36 Aerobic Blood Culture - Preliminary Blood No growth in Aerobic bottle after 48 hours. Anaerobic Blood Culture - Preliminary No growth in Anaerobic bottle after 48 hours. 03/05/23 15:36 Aerobic Blood Culture - Preliminary Blood No growth in Aerobic bottle after 48 hours. Anaerobic Blood Culture - Preliminary No growth in Anaerobic bottle after 48 hours. 03/09/23 03/09/23 03/09/23 17:06 12:31 08:30 POC Glucose 170 H 291 H 213 H Electrocardiogram Date: 03/05/23 Findings: + NSR @ (85) PVC's Chest X-Ray Date: 03/05/23 Findings: + NAD Echocardiogram Date: 11/13/22 EF: 65-70% LV Function: normal Other Findings: + LVH (moderate) Valvular Disease: + (mild), + AI (mild) and + MR (mild)
[2023-03-10] MEDS: ceFAZolin 2000MG 2,000 MG/15 ML SYR IV SCH ×3 (01:00→17:21)
[2023-03-10 05:00] LABS: Hematocrit (blood only) 35.5 % (42.0-52.0); Hemoglobin 11.8 g/dl (14.0-18.0); Mean Corpuscular Hgb Conc 33.2 g/dL (32.0-36.0); Mean Corpuscular Volume 84.3 fL (80.0-100.0); Platelet Count 287 K/uL (130-400); RDW Coefficient of Variation 13.1 % (11.5-14.5); RDW Standard Deviation 40.5 fL (36.4-46.3); Red Blood Count 4.21 M/uL (4.70-6.10); White Blood Count 13.68 K/ul (4.8-10.8)
[2023-03-10 05:15] LABS: BUN Creatinine Ratio 10.9 (10-20); Calcium 8.5 mg/dl (8.6-10.3); Creatinine Clr Calc Pharmacy 61.8 ml/min; Est GFR (Non-African American) 56.1 ml/min; Potassium 3.8 mmol/L (3.5-5.1)
[2023-03-10] MEDS: SODIUM CHLORIDE 0.9% 1,000 ML IV SCH ×2 (06:21→22:51)
--- NOTE | 2023-03-10 07:00 | Hospitalist Progress Note ---
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 Right foot infection w/ necrosis- s/p transmetatarsal amputation (03/06) Right foot MRI showed fluid collection around great toe proximal phalanx and third toe with edema concerning for osteomyelitis. Wound cx MSSA. Blood cultures negative. Duplex studies as above - appreciate vascular recommendations. Returned to OR for closure 03/10. Abx: s/p 1 dose of ceftriaxone, 3 days of dapto, 2 days of cefepime narrowed abx coverage to cefazolin 2g q8hr 03/08 - continue tylenol, oxycodone, dilaudid PRN for pain control - vascular consulted - appreciate recs - podiatry on board - appreciate recs KUN - Cr upon admission 1.7; baseline appears near 1.0 - renal US neg - continue to hold lasix and metformin; continue NS at 80 mL/hr - will need to continue to re-evaluate fluid status to determine when lasix should be resumed Uncontrolled type 2 diabetes mellitus Patient admitted with BSG in the 500s. HbA1c 16.2. No signs of acidosis. Lantus and SSI while inpatient. Holding metformin for now. Chronic heart failure with preserved ejection fraction Last echo 10/2022 showed EF 65-70% with LVH and mild - continues to be euvolemic on exam - lasix held d/t KUN; will continue to monitor Cr to determine when to restart lasix Sleep apnea - continue CPAP/BiPAP Peripheral arterial disease - will continue aspirin Hypertension - stable - continue metoprolol Diet: carb consistent, heart healthy VTE ppx: lovenox Dispo: med/surg with tele Code: full (2) Cellulitis: (3) Right foot infection: (4) Uncontrolled type 2 diabetes mellitus with hyperglycemia, with long-term current use of insulin: (5) PAD (peripheral artery disease): (6) KUN (acute kidney injury): Admission and Anticipated Discharge Date Admission Date: March 05, 2023 Supervising Physician Co-Signing Physician Notes Resident Physician Supervision Note: I independently interviewed and examined the patient and verified the lei history and physical, reviewed labs and image studies and agree with resident findings and care plan. Subjective Patient in the OR upon my evaluation Returned in the afternoon. BP on the soft side. Patient asymptomatic. Pain well controlled. Review of Systems 2 Review of Systems: As per HPI Physical Exam 2 Physical Exam: Constitutional: well appearing, no acute distress HEENT: normocephalic, no conjunctival injection CV: clinically well perfused Respiratory: no increased work of breathing Abd: non-distended MSK: right foot dressing clean and dry Skin: warm, dry, no rashes Neuro: alert, no FND noted Results & Data Results & Data Laboratory Results 03/10/23 04:31 03/10/23 04:31 Resident Activity Tracking Resident Involvement: Resident Care Provided Care Provided: Adult Hospital Medicine (2) Cellulitis Site of cellulitis: unspecified site Qualified Code(s): L03.90 - Cellulitis, unspecified
[2023-03-10] MEDS ORDERED: fentaNYL citrate PF 100 MCG/2 ML VIAL ONE (07:32)
[2023-03-10] MEDS ORDERED: MIDAZOLAM HCL 1 MG/ML 2ML VIAL ONE (07:32)
[2023-03-10] MEDS: METOPROLOL TARTRATE 100 MG TAB PO SCH ×2 (07:40→20:52)
[2023-03-10] MEDS: ASPIRIN 81 MG ECTAB PO SCH (07:49)
[2023-03-10] MEDS: INSULIN ASPART PER UNIT CHARGE SC SCH ×4 (07:49→20:52)
[2023-03-10] MEDS: LANTUS PER UNIT CHARGE SQ SCH ×2 (07:49→20:52)
[2023-03-10] MEDS: GABAPENTIN 600 MG TAB PO SCH ×2 (07:49→20:51)
[2023-03-10] MEDS: buPROPion SR 150 MG TABCR PO SCH (07:49)
[2023-03-10] MEDS: MAGNESIUM CHLORIDE W/CALCIUM 64MG DELAYED REL TAB PO SCH (07:50)
[2023-03-10] MEDS: ROSUVASTATIN CALCIUM 20 MG TAB PO SCH (07:50)
[2023-03-10] MEDS: PANTOprazole 40 MG TAB PO SCH (07:50)
[2023-03-10] MEDS: POTASSIUM CHLORIDE CRTAB 20 MEQ TABCR PO SCH (07:50)
[2023-03-10] MEDS ORDERED: LIDOCAINE 2% 2 ML VIAL/AMP(20MG/ML) INFIL ONE (08:02)
[2023-03-10] MEDS ORDERED: PROPOFOL IV EMULSION 10 MG/ML 20 ML VIAL IV ONE ×2 (08:02→08:37)
[2023-03-10] MEDS ORDERED: HYDROmorphone INJ 1 MG/ML SYRINGE IV PRN (08:05)
[2023-03-10] MEDS ORDERED: PROMETHAZINE HCL 6.25 MG in SODIUM CHLORIDE 0.9% 50 ML IV PRN (08:05)
[2023-03-10] MEDS ORDERED: ATROPINE SULFATE 0.1 MG/ML 10ML SYR IV PRN (08:05)
--- NOTE | 2023-03-10 08:30 | History & Physical Bridge Note ---
Date of Service March 10, 2023 History & Physical Bridge Note I have examined the patient, reviewed the History & Physical and in the interval since the performance of the History & Physical I have noted the following changes of clinical significance: no changes noted
[2023-03-10] MEDS ORDERED: ONDANSETRON INJ 2 MG/ML 2 ML VIAL ONE (08:37)
[2023-03-10] MEDS ORDERED: BUPIVACAINE 0.5 % 5 MG/1 ML MPF 30ML VIAL ONE (08:39)
[2023-03-10] MEDS ORDERED: KETAMINE HCL 10MG/ML SYR ONE (08:47)
[2023-03-10] MEDS ORDERED: GLYCOPYRROLATE 0.2 MG/ML VIAL ONE (08:48)
[2023-03-10] MEDS ORDERED: ePHEDrine sulfate 50 MG/5 ML SYR ONE (08:51)
[2023-03-10] MEDS ORDERED: SODIUM CHLORIDE 0.9% PF INJ 10 ML VIAL ONE (09:01)
[2023-03-10] MEDS ORDERED: ceFAZolin 330 MG/ML 1 GM VIAL ONE (09:01)
[2023-03-10] MEDS ORDERED: THROMBIN FOR SOLN 20000 UNIT KIT ONE (09:19)
[2023-03-10] MEDS ORDERED: ceFAZolin 2000MG 2,000 MG/15 ML SYR IV ONE (09:55)
--- NOTE | 2023-03-10 10:18 | Post Operative Brief Note ---
Immediate Post Op Note v1 Date of Surgery March 10, 2023 Pre & Post Diagnosis Operation Date: 03/10/23 07:30 Pre-Op Diagnosis: Right Diabectic Wound Post-Op Diagnosis: Right Diabectic Wound I identified the patient and participated in the time-out.: Yes Procedure Operation Date: 03/10/23 07:30 Actual Procedures p Right Foot Delayed Primary Closure and Right Achilles Lenghtening - Ifeanyi Garcia DPM, MS Surgeon Ifeanyi Garcia DPM, MS Transcript Clerk None Estimated Blood Loss 20 Findings Consistent with Post-Op Diagnosis Specimens Microbiology - right first metatarsal bone Right transmetatarsal amputation - Pathology Drains Beyer Catheter
--- NOTE | 2023-03-10 11:02 | Anesthesiology Progress Note ---
Date of Service March 10, 2023 Anesthesia Post Procedure Vital Signs Vital Signs: Temp Pulse Pulse Pulse Pulse Resp BP 03/10/23 10:58 36.4 C L 70 14 03/10/23 10:15 37.2 C 73 15 03/10/23 10:05 72 13 03/10/23 09:57 37 C 75 14 03/10/23 08:00 37.2 C 73 14 03/10/23 07:33 71 03/10/23 03:15 36.9 C 73 18 135/77 03/10/23 00:33 77 03/09/23 22:00 37.3 C 77 18 03/09/23 20:28 37.2 C 78 18 107/58 L 03/09/23 16:31 36.6 C 59 L 16 03/09/23 15:34 70 03/09/23 11:55 36.7 C 73 16 BP Pulse Ox O2 Del Method O2 Flow Rate 03/10/23 10:58 121/65 96 Room Air 03/10/23 10:15 118/67 96 Room Air 03/10/23 10:05 120/66 98 Nasal Cannula 2 03/10/23 09:57 118/65 98 Nasal Cannula 4 03/10/23 08:00 126/69 98 Room Air 03/10/23 07:33 03/10/23 03:15 95 Room Air 03/10/23 00:33 03/09/23 22:00 104/59 L 95 Room Air 03/09/23 20:28 96 Room Air 03/09/23 16:31 117/58 L 95 Room Air 03/09/23 15:34 03/09/23 11:55 101/57 L 95 Room Air Transfer of Care Handoff Completed per policy Notes Mental Status: alert / awake / arousable Patient Amnestic to Procedure: Yes Nausea / Vomiting: adequately controlled Pain: adequately controlled Airway Patency, RR, SpO2: stable & adequate BP & HR: stable & adequate Hydration State: stable & adequate Anesthetic Complications: no major complications apparent
--- NOTE | 2023-03-10 13:02 | Operative Report ---
Post Operative Report Pre & Post Diagnosis Operation Date: 03/10/23 07:30 Pre-Op Diagnosis: Right Diabectic Wound Post-Op Diagnosis: Right Diabectic Wound I identified the patient and participated in the time-out.: Yes Procedure Operation Date: 03/10/23 07:30 Actual Procedures p Right Foot Delayed Primary Closure and Right Achilles Lenghtening - Ifeanyi Garcia DPM, MS Surgeon Ifeanyi Garcia DPM, MS Soaping Department Supervisor None Estimated Blood Loss 20 Findings Consistent with Post-Op Diagnosis Consistent with pre operative findings Specimens 1.) Right calcaneus bone - microbiology 2.) Right calcaneus bone - pathology 3.) Left calcaneus bone - microbiology 4.) Left calcaneus bone - pathology Drains none Description of Procedure History of present illness: Patient is a type II diabetic, 57 year old male who has extensive history of Left and Right heel wounds. Patient MRI (+) for right and left calcaneal osteomyelitis. He is seen today for Right and Left wound debridement and Right and Left calcaneus ostectomy. I have reviewed the procedure and post operative recovery with Patient in detail. Patient is at high risk for limb loss. All questions answered. All potential risks, benefits, complications, alternatives, rehab, potential for incomplete relief of symptoms, need for further surgery, DVT, PE, , persistent pain, swelling, scarring, weakness, neurovascular, wound complications and potential for amputations were discussed with patient. Unwanted outcomes such as, but not limited to were reviewed including under correction, overcorrection, return of deformity, infection. All questions were answered. Patient has decided to proceed with procedure as indicated. Preoperative diagnosis: 1.) Right diabetic foot ulcer 2.) Right calcaneus Osteomyelitis 3.) Left diabetic foot ulcer 4.) Left calcaneus Osteomyelitis Postoperative diagnosis: Same Name of operation: 1.) Wound debridement with Right partial calcaneus ostectomy 2.) Wound debridement with Left partial calcaneus ostectomy Surgeon: Dr. Garcia Soaping Department Supervisor: None Anesthesia: General Estimated blood loss: Minimal Procedure in detail: Under mild sedation the patient was brought in the operating room placed on the operating table in supine position. Patient was then converted to prone position. Following sedation the right and left foot and ankle were prepped, scrubbed, and draped, in the usual aseptic manner First, attention was directed to the distal aspect of the right heel where a non healing Diabetic full thickness ulcer was located with exposed necrotic bone. The wound measured roughly 6 x 5 x 2 cm. Next, utilizing a sharp, sterile, 15 blade necrotic tissue was excised over the wound bed from the retrocalcaneal aspect of the right heel. The wound was debrided sharply down to necrotic bone. At this time utilizing an oscillating bone saw the osteomyelitis bone from the calcaneus was resected. The bone was removed and placed on the back table. The wound measurements were roughly 6 x 5 x 3 cm. At the interface of the excised bone there was no signs of infection or necrosis. Source control and clear margins were observed. A portion of the excised bone was sent to Pathology for clear margins and a portion was sent to microbiology for culture and sensitives. Next, attention was directed to the distal aspect of the left heel where a non healing Diabetic full thickness ulcer was located with exposed necrotic bone. The wound measured roughly 6 x 6 x 2 cm. Next, utilizing a sharp, sterile, 15 blade necrotic tissue was excised over the wound bed from the retrocalcaneal aspect of the left heel. The wound was debrided sharply down to necrotic bone. At this time utilizing an oscillating bone saw the osteomyelitis bone from the left calcaneus was resected. The bone was removed and placed on the back table. The wound measurements were roughly 6 x 6 x 3 cm. At the interface of the excised bone there was no signs of infection or necrosis. Source control and clear margins were observed. A portion of the excised bone was sent to Pathology for clear margins and a portion was sent to microbiology for culture and sensitives. At this time instrumentation was switched and top gloves were removed. 1 Liter of lactate ringer was perfused low flow over the left and right heel wounds. The wounds were then dressed with Adaptic followed by sterile compressive dressing consisting of 4 x 4's, ABD and Jonathan. An Marko wrap was then applied. The Patient tolerated the procedure and anesthesia well. The Patient was transferred to recovery room with vital signs. Following a period of Postoperative monitoring the Patient will be readmitted to the floor resuming all preoperative orders. I attest to the content of the Intraoperative Record and any orders documented therein. Any exceptions are noted below.
--- NOTE | 2023-03-10 14:20 | Operative Report ---
Post Operative Report Pre & Post Diagnosis Operation Date: 03/10/23 07:30 Pre-Op Diagnosis: Right Diabectic Wound Post-Op Diagnosis: Right Diabectic Wound I identified the patient and participated in the time-out.: Yes Procedure Operation Date: 03/10/23 07:30 Actual Procedures p Right Foot Delayed Primary Closure and Right Achilles Lenghtening - Ifeanyi Garcia DPM, MS Surgeon Ifeanyi Garcia DPM, MS Taper [employer] Layout None Estimated Blood Loss 20 Findings Consistent with Post-Op Diagnosis Consistent with pre operative diagnosis Specimens 1.) metatarsal bones 1, 2, 3, 4, 5 right foot clear margins Right foot - Pathology Description of Procedure History of present illness: Patient is a type II diabetic 57 year old male who is seen for delayed closure of right foot wound. Patient recently had right foot transmetatarsal amputation due to osteomyelitis. Due to infection wound remained open. Soft tissue has now demarcated. All questions answered. Discussed procedure in detail and postoperative recovery. All potential risks, benefits, complications, alternatives, rehab, potential for incomplete relief of symptoms, need for further surgery, DVT, PE, , persistent pain, swelling, scarring, weakness, neurovascular, wound complications and potential for amputations were discussed with patient. Unwanted outcomes such as, but not limited to were reviewed including under correction, overcorrection, return of deformity, infection. All questions were answered. Patient has decided to proceed with procedure as indicated. Preoperative diagnosis: 1.) Diabetic foot wound right 2.) Equinus right foot and ankle Postoperative diagnosis: same Name of operation: 1.) Diabetic foot wound debridement 2.) Secondary closure of surgical wound extensive 3.) Tendo Achilles lengthening right Surgeon: Dr. Garcia [employer] Layout: None Anesthesia: Monitored anesthesia care Hemostasis: dissection Estimated blood loss: minimal Procedure in detail: Under mild sedation the patient was brought in the operating room placed on the operating table in supine position. Following IV sedation the foot was prepped scrubbed and draped in usual aseptic manner. Attention was then directed to the open tranmetatarsal amputation site. The wound measures 10 cm x 4 cm x 4 cm. The wound bed shows 10% necrotic or non viable tissue well demarcated. Utilizing a sharp, sterile, #15 blade the wound is voided of non viable soft tissue. Excision debridement is carried down to and including muscle and tendon to achieve a healthy wound bed. The first, second, third, fourth, and fifth metatarsal were resected further utilizing and oscillating bone saw. The metatarsals were labelled and sent to pathology for confirmation of clear margins. 1 L of lactated Ringer was then irrigated with low flow into the wound. At this time wound is closed in layers. Vertical mattress sutures are applied distal to wound as retention sutures utilizing 2-0 nylon. More proximal to wound edges vertical mattress sutures are applied. Finally wound edges are re- approximated using 3-0 nylon with simple suture technique. Next attention was directed to the posterior aspect of the patient's right lower extremity. Range of motion at ankle showed inability to dorsiflex past 90 degrees. 3 separate velez were made with marking pen 3 cm apart along the posterior aspect of the Tendo Achilles right lower extremity. Utilizing a sharp sterile 15 in blade a 1 cm incision was placed at the 3 separate locations. At this time a sharp sterile 15 deep blade was utilized for the Tendo Achilles lengthening. The lead was placed parallel along the long axis of the Achilles tendon entering the tendon at midline then becoming horizontal and exiting medially at most distal and most proximal incision and laterally at central incision site. Range of motion of right ankle now shows ability to dorsiflex past 10 degrees of 90. Each incision site was closed with 4-0 nylon. Upon completion of the procedure the wound was dressed with sterile dressing consisting of 4 x 4's Jonathan Kerlix, ABD. The Patient tolerated the procedure and anesthesia well. He was transferred to recovery room vital signs stable and vascular status intact all toes of the right foot following. Following a period of postoperative monitoring the patient will be readmitted to floor with the continuation of all preoperative orders. I attest to the content of the Intraoperative Record and any orders documented therein. Any exceptions are noted below.
[2023-03-10] MEDS: ENOXAPARIN INJ 40 MG/0.4 ML SYR SQ SCH (15:46)
[2023-03-10] MEDS: HYDROmorphone INJ 0.5 MG/0.5 ML SYR IV PRN (20:55)
[2023-03-11] MEDS: ceFAZolin 2000MG 2,000 MG/15 ML SYR IV SCH ×3 (01:53→17:31)
[2023-03-11 06:05] LABS: Hemoglobin 10.9 g/dl (14.0-18.0); Mean Corpuscular Hemoglobin 27.3 pg (25.0-34.0); Mean Corpuscular Hgb Conc 32.1 g/dL (32.0-36.0); Mean Corpuscular Volume 85.2 fL (80.0-100.0); Mean Platelet Volume 9.9 fL (9.4-12.4); Platelet Count 303 K/uL (130-400); RDW Coefficient of Variation 13.2 % (11.5-14.5); RDW Standard Deviation 41.2 fL (36.4-46.3); Red Blood Count 3.99 M/uL (4.70-6.10)
[2023-03-11 06:27] LABS: BUN Creatinine Ratio 12.4 (10-20); Calcium 7.9 mg/dl (8.6-10.3); Est GFR (African American) 75.5 ml/min; Est GFR (Non-African American) 65.1 ml/min; Potassium 3.9 mmol/L (3.5-5.1)
--- NOTE | 2023-03-11 07:20 | Hospitalist Progress Note ---
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 Right foot infection w/ necrosis- s/p transmetatarsal amputation (03/06) - Right foot MRI showed fluid collection around great toe proximal phalanx and third toe with edema concerning for osteomyelitis. - Wound cx MSSA. Blood cultures negative. - S/p Transmetatarsal amputation 03/06, with complete closure 03/10 - Duplex studies as above - Vascular consulted, noting no need for vascular surgical intervention at this time (03/11) Abx: s/p 1 dose of ceftriaxone, 3 days of dapto, 2 days of cefepime Narrowed abx coverage to cefazolin 2g q8hr 03/08, would plan Cephalexin upon discharge (until 03/20, 14 days of abx from removal of digits) - continue tylenol, oxycodone, dilaudid PRN for pain control - Podiatry following - appreciate recs for discharge planning --- PT/OT recommending inpatient rehab KUN - Cr upon admission 1.7; baseline appears near 1.0, currently 1.2 - renal US neg - continue to hold lasix and metformin; continue NS at 80 mL/hr - will need to continue to re-evaluate fluid status to determine when lasix should be resumed --- Patient euvolemic on exam, continue Lasix hold w/ NS @ 80 mL/hr as Cr trending down to baseline Uncontrolled type 2 diabetes mellitus - Patient admitted with BSG in the 500s. - HbA1c 16.2. - No signs of acidosis. - Lantus and SSI while inpatient. Holding metformin for now. --- Insulin regimen adjusted to Lantus 20u BID w/ Novolog @ CR of 4 --- Extensive discussion regarding pathogenesis and complications of DM as well as management methods Chronic heart failure with preserved ejection fraction - Last echo 10/2022 showed EF 65-70% with LVH and mild - continues to be euvolemic on exam - lasix held d/t KUN; will continue to monitor Cr to determine when to restart lasix Sleep apnea - continue CPAP/BiPAP Peripheral arterial disease - will continue aspirin Hypertension - stable - continue metoprolol Diet: carb consistent, heart healthy VTE ppx: lovenox Dispo: med/surg with tele Code: full (2) Cellulitis: (3) Right foot infection: (4) Uncontrolled type 2 diabetes mellitus with hyperglycemia, with long-term current use of insulin: (5) PAD (peripheral artery disease): (6) KUN (acute kidney injury): Admission and Anticipated Discharge Date Admission Date: March 05, 2023 Supervising Physician Co-Signing Physician Notes I personally examined the patient and verified all lei points of history and exam, discussed case, and agree with decision making with Dr Cutler feeling OK. extensive discussion on DM. vitals noted nad heent nc at mmm breathing unlabored no accessory muscles good effort skin no rashes no pallor or icterus DM foot infection; markedly uncontrolled DM with most recent A1c 16.2 -appreciate podiatry assistance -continue current abx coverage -extensive discussion of DM and "why to care" ("high sugars clog arteries") and basics of DM self management/basal bolus insulin/"soft carb counting" - expressed understanding otherwise as above Subjective 03/11: Resting comfortably in bed upon arrival. Patient notes 3/10 pain, states it is well controlled. He notes a strong desires to discharge to home. Patient denies fever, chills, nausea, vomiting, or diarrhea. Patient endorses that will be home to help care for him and that he has a wheel chair at home for mobility. Review of Systems Review of Systems: As per HPI Physical Exam Physical Exam: Constitutional: well appearing, no acute distress HEENT: normocephalic, no conjunctival injection CV: RRR, normal S1/S2, no MRG, clinically well perfused Respiratory: CTAB, no increased work of breathing Abd: non-distended, bowel sounds present MSK: right foot dressing clean and dry, 2+ PT pulses, no surrounding erythema Skin: warm, dry, no rashes Neuro: alert, no FND noted Results & Data Results & Data Vital Signs (Past 12 Hours) Vital Signs Temp Pulse Pulse Resp BP Pulse Ox O2 Del Method 03/11/23 04:00 36.9 C 76 18 143/68 H 98 Room Air 03/11/23 00:15 83 03/10/23 22:00 37.1 C 81 18 106/60 95 Room Air Resident Activity Tracking Resident Involvement: Resident Care Provided Care Provided: Adult Hospital Medicine (2) Cellulitis Site of cellulitis: unspecified site Qualified Code(s): L03.90 - Cellulitis, unspecified
--- NOTE | 2023-03-11 08:37 | Communication Note ---
Date of Service: March 11, 2023 BLE arterial US reviewed by Dr Yu. Demonstrates moderate diffuse disease and 3 vessel runoff to R foot. No indications for vascular surgical inte rvention at this time. Please call if needed.
[2023-03-11] MEDS: METOPROLOL TARTRATE 100 MG TAB PO SCH ×2 (09:22→20:36)
[2023-03-11] MEDS: ROSUVASTATIN CALCIUM 20 MG TAB PO SCH (09:22)
[2023-03-11] MEDS: GABAPENTIN 600 MG TAB PO SCH ×2 (09:22→20:36)
[2023-03-11] MEDS: PANTOprazole 40 MG TAB PO SCH (09:23)
[2023-03-11] MEDS: ASPIRIN 81 MG ECTAB PO SCH (09:23)
[2023-03-11] MEDS: buPROPion SR 150 MG TABCR PO SCH (09:23)
[2023-03-11] MEDS: MAGNESIUM CHLORIDE W/CALCIUM 64MG DELAYED REL TAB PO SCH (09:23)
[2023-03-11] MEDS: INSULIN ASPART PER UNIT CHARGE SC SCH ×4 (09:28→20:37)
[2023-03-11] MEDS: LANTUS PER UNIT CHARGE SQ SCH (09:28)
[2023-03-11] MEDS: POTASSIUM CHLORIDE CRTAB 20 MEQ TABCR PO SCH (09:28)
[2023-03-11] MEDS: SODIUM CHLORIDE 0.9% 1,000 ML IV SCH ×2 (11:15→23:53)
[2023-03-11] MEDS ORDERED: Nursing to Pharmacy Communication SCH (11:30)
[2023-03-11] MEDS: oxyCODONE HCL IR 5 MG TAB (IMMEDIATE RELEASE) PO PRN (11:59)
[2023-03-11] MEDS: ENOXAPARIN INJ 40 MG/0.4 ML SYR SQ SCH (15:39)
--- NOTE | 2023-03-11 17:14 | Billing Data ---
Date of Service March 11, 2023 Coding Level of Care Code 67650 SUB INP/OBS CARE MIN
[2023-03-11] MEDS ORDERED: LANTUS PER UNIT CHARGE SQ SCH (21:00)
[2023-03-12] MEDS: ceFAZolin 2000MG 2,000 MG/15 ML SYR IV SCH ×3 (00:20→18:16)
[2023-03-12 06:22] LABS: Hematocrit (blood only) 30.3 % (42.0-52.0); Hemoglobin 9.8 g/dl (14.0-18.0); Mean Corpuscular Hemoglobin 27.5 pg (25.0-34.0); Mean Corpuscular Hgb Conc 32.3 g/dL (32.0-36.0); Mean Corpuscular Volume 84.9 fL (80.0-100.0); Mean Platelet Volume 9.9 fL (9.4-12.4); Platelet Count 336 K/uL (130-400); RDW Coefficient of Variation 12.9 % (11.5-14.5); RDW Standard Deviation 39.7 fL (36.4-46.3); Red Blood Count 3.57 M/uL (4.70-6.10); White Blood Count 14.09 K/ul (4.8-10.8)
[2023-03-12 06:45] LABS: BUN Creatinine Ratio 15.6 (10-20); Calcium 7.8 mg/dl (8.6-10.3); Creatinine Clr Calc Pharmacy 62.8 ml/min; Est GFR (African American) 66.1 ml/min; Est GFR (Non-African American) 57.1 ml/min; Potassium 3.9 mmol/L (3.5-5.1)
--- NOTE | 2023-03-12 06:56 | Hospitalist Progress Note ---
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 Right foot infection w/ necrosis- s/p transmetatarsal amputation (03/06) - Right foot MRI showed fluid collection around great toe proximal phalanx and third toe with edema concerning for osteomyelitis. - Wound cx MSSA. Blood cultures negative. - S/p Transmetatarsal amputation 03/06, with complete closure 03/10 - Duplex studies as above - Vascular consulted, noting no need for vascular surgical intervention at this time (03/11) Abx: s/p 1 dose of ceftriaxone, 3 days of dapto, 2 days of cefepime Narrowed abx coverage to cefazolin 2g q8hr 03/08, would plan Cephalexin upon discharge (until 03/20, 14 days of abx from removal of digits) - Continue tylenol, oxycodone, dilaudid PRN for pain control - Podiatry following - recommending rehab as well as 4 weeks of antibiotic therapy upon discharge --- PT/OT recommending inpatient rehab, placement @ [facility] 03/13 --- Right calf pain noted, Venous Doppler negative KUN - Cr upon admission 1.7; baseline appears near 1.0, currently 1.3 - renal US neg - continue to hold lasix and metformin; continue NS at 80 mL/hr - will need to continue to re-evaluate fluid status to determine when lasix should be resumed --- Patient euvolemic on exam, continue Lasix hold w/ NS @ 80 mL/hr as Cr trending down to baseline Uncontrolled type 2 diabetes mellitus - Patient admitted with BSG in the 500s. - HbA1c 16.2. - No signs of acidosis. - Lantus and SSI while inpatient. Holding metformin for now. - Extensive discussion regarding pathogenesis and complications of DM as well as management methods --- Insulin regimen adjusted to Lantus 25u BID w/ Novolog @ CR of 4 Chronic heart failure with preserved ejection fraction - Last echo 10/2022 showed EF 65-70% with LVH and mild - continues to be euvolemic on exam - lasix held d/t KUN; will continue to monitor Cr to determine when to restart lasix Sleep apnea - continue CPAP/BiPAP Peripheral arterial disease - will continue aspirin Hypertension - stable - continue metoprolol Diet: carb consistent, heart healthy VTE ppx: Lovenox Dispo: med/surg with tele, [place] [facility] 03/13 Code: full (2) Cellulitis: (3) Right foot infection: (4) Uncontrolled type 2 diabetes mellitus with hyperglycemia, with long-term current use of insulin: (5) PAD (peripheral artery disease): (6) KUN (acute kidney injury): Admission and Anticipated Discharge Date Admission Date: March 05, 2023 Supervising Physician Co-Signing Physician Notes I personally examined the patient and verified all lei points of history and exam, discussed case, and agree with decision making with Dr Cutler feeling OK. for rehab. present. revisited extensive discussion on DM. vitals noted nad heent nc at mmm breathing unlabored no accessory muscles good effort skin no rashes no pallor or icterus DM foot infection; markedly uncontrolled DM with most recent A1c 16.2; continue to titrate insulins -appreciate podiatry assistance -continue current abx coverage -> keflex - d/w podiatry - ~4wks total course abx depending on progress at follow up -revisited / recapped extensive discussion of DM and "why to care" ("high sugars clog arteries") and basics of DM self management/basal bolus insulin/"soft carb counting" with pt and - expressed understanding otherwise as above Subjective 03/12: Patient resting in bed upon arrival. Patient notes pain in his right leg/calf, but otherwise is feeling well. He denies fever, chills, nausea, vomiting, or diarrhea. Patient notes that he wants to be home for [place], but is agreeable to receive in patient rehab as recommended. Review of Systems Review of Systems: As per HPI Physical Exam Physical Exam: Constitutional: well appearing, no acute distress HEENT: normocephalic, no conjunctival injection CV: RRR, normal S1/S2, no MRG, clinically well perfused Respiratory: CTAB, no increased work of breathing Abd: non-distended, bowel sounds present MSK: right foot dressing clean and dry, 2+ PT pulses, no surrounding erythema, right calf/escalante TTP Skin: warm, dry, no rashes Neuro: alert, no FND noted Results & Data Results & Data Vital Signs (Past 12 Hours) Vital Signs Temp Pulse Pulse Resp BP Pulse Ox O2 Del Method 03/12/23 02:30 37.4 C 79 18 123/57 L 96 Room Air 03/11/23 22:00 37.6 C H 84 18 110/58 L 95 Room Air 03/11/23 21:53 90 03/11/23 19:24 37.4 C 92 H 16 109/62 95 Room Air Resident Activity Tracking Resident Involvement: Resident Care Provided Care Provided: Adult Hospital Medicine (2) Cellulitis Site of cellulitis: unspecified site Qualified Code(s): L03.90 - Cellulitis, unspecified
[2023-03-12] MEDS: INSULIN ASPART PER UNIT CHARGE SC SCH ×4 (08:52→20:45)
[2023-03-12] MEDS: MAGNESIUM CHLORIDE W/CALCIUM 64MG DELAYED REL TAB PO SCH (08:52)
[2023-03-12] MEDS: POTASSIUM CHLORIDE CRTAB 20 MEQ TABCR PO SCH (08:52)
[2023-03-12] MEDS: METOPROLOL TARTRATE 100 MG TAB PO SCH ×2 (08:52→20:44)
[2023-03-12] MEDS: GABAPENTIN 600 MG TAB PO SCH ×2 (08:52→20:45)
[2023-03-12] MEDS: PANTOprazole 40 MG TAB PO SCH (08:52)
[2023-03-12] MEDS: ROSUVASTATIN CALCIUM 20 MG TAB PO SCH (08:52)
[2023-03-12] MEDS: buPROPion SR 150 MG TABCR PO SCH (08:52)
[2023-03-12] MEDS: ASPIRIN 81 MG ECTAB PO SCH (08:52)
[2023-03-12] MEDS: LANTUS PER UNIT CHARGE SQ SCH ×2 (09:34→20:45)
[2023-03-12] MEDS: oxyCODONE HCL IR 5 MG TAB (IMMEDIATE RELEASE) PO PRN (09:36)
[2023-03-12] MEDS: SODIUM CHLORIDE 0.9% 1,000 ML IV SCH (13:26)
--- NOTE | 2023-03-12 14:27 | Ultrasound Report ---
RIGHT LOWER EXTREMITY VENOUS DOPPLER CLINICAL HISTORY: R/o Clot in RLE s/p surgery, new pain this AM. COMPARISON STUDY: Bilateral lower extremity venous Doppler ultrasound January 01, 2018. TECHNIQUE: Sonography of the deep venous system of the right lower extremity was performed. Compress ion and augmentation were evaluated. FINDINGS: The right common femoral, superficial femoral and popliteal veins were compressible. Augme ntation was normal. Flow was shown within the deep calf vessels. IMPRESSION: No evidence of deep venous thrombus within the right lower extremity. ACT 112: Negative or not required by law. Electronically signed by: Davie Fitzgerald M.D. 03/12/2023 2:25 PM
[2023-03-12] MEDS: ENOXAPARIN INJ 40 MG/0.4 ML SYR SQ SCH (15:42)
--- NOTE | 2023-03-12 17:53 | Billing Data ---
Date of Service March 12, 2023 Coding Level of Care Code 58350 SUB INP/OBS CARE MIN
--- NOTE | 2023-03-12 21:21 | Orthopedic Progress Note ---
Date of Service March 12, 2023 Assessment & Plan (1) Right foot infection: Plan: Patient seen, evaluated, and treated. Patient status post day #2 Right Foot Delayed Primary Closure (DOS: 03/10/23) DSD change. He is awaiting placement at SNF. Patient non weight bearing to surgical foot. Thank you for involving me in the care of this Patient. (2) Cellulitis: (3) PAD (peripheral artery disease): Admission and Anticipated Discharge Date Admission Date: March 05, 2023 Subjective Patient seen at bedside resting comfortably in 262-1. Patient status post day #2 Right Foot Delayed Primary Closure (DOS: 03/10/23) He denies discomfort. Physical Exam Constitutional: cooperative and comfortable Eyes: normal visual garrett by confrontation Neck: normal visual inspection Respiratory: normal respiratory effort Cardiovascular: Rate/Rhythm: regular rate and regular rhythm Vessels: posterior tibial pulses present and dorsalis pedis pulses present Musculoskeletal: Extremities: extremities normal to inspection Skin: + ulcer (Medial right foot. ) and + inci vivi (TMA site well healed. Sutures intact.) Neurologic: moves all extremities (Loss of epicritic sensation) Psychiatric: Orientation: alert and oriented x 3 Results & Data Vital Signs (Past 12 Hours) Vital Signs Temp Pulse Pulse Resp BP Pulse Ox O2 Del Method 03/12/23 19:36 37.1 C 86 18 113/64 94 Room Air 03/12/23 15:25 37.6 C H 80 12 100/62 93 Room Air 03/12/23 15:19 85 03/12/23 11:34 37.1 C 81 13 95/57 L 94 Room Air (2) Cellulitis Site of cellulitis: unspecified site Qualified Code(s): L03.90 - Cellulitis, unspecified
[2023-03-13] MEDS ORDERED: Nursing to Pharmacy Communication SCH (00:15)
[2023-03-13] MEDS: ceFAZolin 2000MG 2,000 MG/15 ML SYR IV SCH ×3 (01:29→16:35)
[2023-03-13] MEDS: SODIUM CHLORIDE 0.9% 1,000 ML IV SCH ×2 (01:30→14:03)
[2023-03-13 06:25] LABS: Hemoglobin 10.3 g/dl (14.0-18.0); Mean Corpuscular Hemoglobin 27.5 pg (25.0-34.0); Mean Corpuscular Hgb Conc 32.2 g/dL (32.0-36.0); Mean Corpuscular Volume 85.3 fL (80.0-100.0); Mean Platelet Volume 9.8 fL (9.4-12.4); Platelet Count 409 K/uL (130-400); RDW Coefficient of Variation 13.7 % (11.5-14.5); RDW Standard Deviation 42.5 fL (36.4-46.3); Red Blood Count 3.75 M/uL (4.70-6.10); White Blood Count 16.89 K/ul (4.8-10.8)
[2023-03-13 06:43] LABS: Albumin Globulin Ratio 0.7 (0.9-2); Albumin Level 2.6 gm/dl (3.4-5.0); BUN Creatinine Ratio 17.5 (10-20); Bilirubin,Total 0.3 mg/dl (0.2-1.0); Creatinine Clr Calc Pharmacy 74.3 ml/min; Est GFR (African American) 81.1 ml/min; Globulin 3.5 gm/dl (2.5-4.0); Total Protein 6.1 gm/dl (6.0-8.3)
--- NOTE | 2023-03-13 07:05 | Hospitalist Progress Note ---
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 Right foot infection w/ necrosis- s/p transmetatarsal amputation (03/06) - Right foot MRI showed fluid collection around great toe proximal phalanx and third toe with edema concerning for osteomyelitis. - Wound cx MSSA. Blood cultures negative. - S/p Transmetatarsal amputation 03/06, with complete closure 03/10 - Duplex studies as above - Vascular consulted, noting no need for vascular surgical intervention at this time (03/11) Abx: s/p 1 dose of ceftriaxone, 3 days of dapto, 2 days of cefepime Narrowed abx coverage to cefazolin 2g q8hr 03/08, would plan Cephalexin upon discharge (until 03/20, 14 days of abx from removal of digits) - Continue tylenol, oxycodone, dilaudid PRN for pain control - Podiatry following - recommending rehab as well as 4 weeks of antibiotic therapy upon discharge --- PT/OT recommending inpatient rehab, placement @ [facility] 03/13 --- Right calf pain noted, Venous Doppler negative KUN - Cr upon admission 1.7; baseline appears near 1.0, currently 1.3 - renal US neg - continue to hold lasix and metformin; continue NS at 80 mL/hr - will need to continue to re-evaluate fluid status to determine when lasix should be resumed --- Patient euvolemic on exam, continue Lasix hold w/ NS @ 80 mL/hr as Cr trending down to baseline Uncontrolled type 2 diabetes mellitus - Patient admitted with BSG in the 500s. - HbA1c 16.2. - No signs of acidosis. - Lantus and SSI while inpatient. Holding metformin for now. - Extensive discussion regarding pathogenesis and complications of DM as well as management methods --- Insulin regimen adjusted to Lantus 25u BID w/ Novolog @ CR of 4 Chronic heart failure with preserved ejection fraction - Last echo 10/2022 showed EF 65-70% with LVH and mild - continues to be euvolemic on exam - lasix held d/t KUN; will continue to monitor Cr to determine when to restart lasix Sleep apnea - continue CPAP/BiPAP Peripheral arterial disease - will continue aspirin Hypertension - stable - continue metoprolol Diet: carb consistent, heart healthy VTE ppx: Lovenox Dispo: med/surg with tele, [facility] 03/13 Code: full (2) Cellulitis: (3) Right foot infection: (4) Uncontrolled type 2 diabetes mellitus with hyperglycemia, with long-term current use of insulin: (5) PAD (peripheral artery disease): (6) KUN (acute kidney injury): Admission and Anticipated Discharge Date Admission Date: March 05, 2023 Subjective 03/12: Patient resting in bed upon arrival. Patient notes pain in his right leg/calf, but otherwise is feeling well. He denies fever, chills, nausea, vomiting, or diarrhea. Patient notes that he wants to be home for [place], but is agreeable to receive in patient rehab as recommended. \ 03/13: Review of Systems Review of Systems: As per HPI Physical Exam Physical Exam: Constitutional: well appearing, no acute distress HEENT: normocephalic, no conjunctival injection CV: RRR, normal S1/S2, no MRG, clinically well perfused Respiratory: CTAB, no increased work of breathing Abd: non-distended, bowel sounds present MSK: right foot dressing clean and dry, 2+ PT pulses, no surrounding erythema, right calf/escalante TTP Skin: warm, dry, no rashes Neuro: alert, no FND noted Results & Data Results & Data Vital Signs (Past 12 Hours) Vital Signs Temp Pulse Pulse Resp BP Pulse Ox O2 Del Method 03/13/23 04:00 37.4 C 74 16 115/67 96 Room Air 03/12/23 23:23 37.3 C 75 16 106/59 L 94 Room Air 03/12/23 21:59 76 03/12/23 19:36 37.1 C 86 18 113/64 94 Room Air (2) Cellulitis Site of cellulitis: unspecified site Qualified Code(s): L03.90 - Cellulitis, unspecified
[2023-03-13 07:58] LABS: C Reactive Protein 7.32 mg/dl (0-0.5)
[2023-03-13] MEDS: INSULIN ASPART PER UNIT CHARGE SC SCH ×4 (09:04→20:54)
[2023-03-13] MEDS: LANTUS PER UNIT CHARGE SQ SCH ×2 (09:04→20:54)
[2023-03-13] MEDS: POTASSIUM CHLORIDE CRTAB 20 MEQ TABCR PO SCH (09:06)
[2023-03-13] MEDS: GABAPENTIN 600 MG TAB PO SCH ×2 (09:06→20:54)
[2023-03-13] MEDS: ASPIRIN 81 MG ECTAB PO SCH (09:07)
[2023-03-13] MEDS: PANTOprazole 40 MG TAB PO SCH (09:07)
[2023-03-13] MEDS: METOPROLOL TARTRATE 100 MG TAB PO SCH ×2 (09:07→20:54)
[2023-03-13] MEDS: buPROPion SR 150 MG TABCR PO SCH (09:07)
[2023-03-13] MEDS: MAGNESIUM CHLORIDE W/CALCIUM 64MG DELAYED REL TAB PO SCH (09:07)
[2023-03-13] MEDS: ROSUVASTATIN CALCIUM 20 MG TAB PO SCH (09:07)
[2023-03-13] MEDS ORDERED: POLYETHYLENE (MIRALAX) 17 GM PACK PO ONE ×2 (10:23→14:01)
--- NOTE | 2023-03-13 10:36 | Discharge Summary ---
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 He remained stable while in the ED. Labs were significant for a WBC WNL, ESR of 48, CRP of 9.31, glucose of 503, corrected sodium of 134, Cr of 1.73 (baseline is near 1.0). Xray of the right foot was read as "1. No acute fracture within the right foot. No radiographic evidence for acute osteomyelitis. 2. Medial right foot soft tissue swelling with possible large blister. 3. Status post right first toe amputation. 4. Extensive vascular calcification.". Prior to admission the patient was given 10 units IV insulin, 1.5L NSS, and a dose of Ceftriaxone. At the time of the exam the patient was lying in bed in no acute distress. He states that he woke up this am in his normal state of health. He already had socks on from last night so he did not see his right foot changes immediately. He later checked his feet and noticed the significant right medial blister and blackened right second and third toes. He states that his foot did not look like that yesterday. He states that his right first toe was amputated by Dr. Chow approximately 2 years ago. He is currently pain free in the right foot unless it is palpated. He denies recent fever, chest pain, SOB, cough, abd pain, nausea, vomiting, diarrhea, dysuria, decreased urine output, hematuria, melena, and recent trauma. I explained that Podiatry will be taking him to the OR tomorrow morning for at least a partial amputation of his right foot, final decisions will be discussed between he and Podiatry tomorrow; he expressed understanding. Please refer to Dr. Baresel's attestation for any changes to the treatment plan. Admission Exam Per Admitting Provider Physical Exam: General: In no acute distress, stated age, chronically ill appearing but non- toxic HEENT: Normocephalic, atraumatic, no scleral icterus, pupils around round, symmetrical, and reactive to light, moist mucus membranes, trachea midline, no thyromegaly Chest/Pulm: No respiratory distress, symmetrical chest expansion, clear breath sounds throughout Cardiac: RRR, no murmurs noted Abdomen: Negative for ascites and bruising, normoactive bowel sounds, soft, non- tender to palpation throughout Musculoskeletal: Patient with previous right great toe amputation; right foot is swollen and erythematous with concern for ischemic right second and third toes, large blister running the length of the medial aspect of the right foot, Extremities: Radial, dorsalis pedis, and posterior tibial pulses are intact, brisk and symmetrical on bedside doppler , 1+ edema in the BL LE's. Skin: as described above; also see attached pictures Neuro: Alert and oriented to person, place, month, year, and president, no tremors noted Psych: No acute distress, calm and cooperative during the exam Principal Diagnosis Diabetic Foot Infection S/p Amputation Uncontrolled T2DM Discharge Exam Constitutional: well appearing, no acute distress HEENT: normocephalic, no conjunctival injection CV: RRR, normal S1/S2, no MRG, clinically well perfused Respiratory: CTAB, no increased work of breathing Abd: non-distended, bowel sounds present MSK: right foot dressing clean and dry, 2+ PT pulses, no surrounding erythema, right calf/escalante TTP (improved) Skin: warm, dry, contact dermatitis to left thigh (no erythema or purulence) Neuro: alert, no FND noted Discharge Data Allergies Allergy/AdvReac Type Severity Reaction Status Date / Time levofloxacin AdvReac Intermediate GI SYMPTOMS Verified 02/01/23 13:37 pneumococcal vaccine AdvReac Intermediate GI Verified 02/01/23 13:37 SYMPTOMS-OK IF MULTIPLE VACCINES GIVEN SEPARATELY tetanus toxoid, adsorbed AdvReac Intermediate TETANUS/DIPTHERIA/PERTUSSIS-GI Verified 02/01/23 13:37 UPSTE/BODY ACHES Consultations 03/05/23 16:34 ED Decision to Admit Stat 03/05/23 19:40 Consult Podiatry Routine 03/07/23 12:43 Consult Vascular Surgery Routine Procedures Performed Operation Date: 03/10/23 07:30 Actual Procedures p Right Foot Delayed Primary Closure and Right Achilles Lenghtening - Ifeanyi Garcia, DPM, MS Ordered Studies 03/05/23 19:31 MRI Foot [MR foot RT wo/w con] Urgent 03/05/23 20:46 US Renal Bladder [US renal/blad retro comp] Urgent 03/08/23 US arterial duplex LE BI Routine 03/12/23 10:43 US venous doppler LE RT Routine Hospital Course (1) Necrotic toes: (2) Cellulitis: (3) Right foot infection: (4) Uncontrolled type 2 diabetes mellitus with hyperglycemia, with long-term current use of insulin: (5) PAD (peripheral artery disease): (6) KUN (acute kidney injury): Plan Pt is a 57 yo male with PMH of uncontrolled DM, ADD, GERD, JENNIFFER, HLD, HTN, and HFpEF 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 Right foot infection w/ necrosis- s/p transmetatarsal amputation (03/06) - Right foot MRI showed fluid collection around great toe proximal phalanx and third toe with edema concerning for osteomyelitis. - Wound cx MSSA. Blood cultures negative. - S/p Transmetatarsal amputation 03/06, with complete closure 03/10 - Duplex studies as above - Vascular consulted, noting no need for vascular surgical intervention at this time (03/11) - Abx: s/p 1 dose of ceftriaxone, 3 days of dapto, 2 days of cefepime Narrowed abx coverage to cefazolin 2g q8hr 03/08, would plan Cephalexin upon discharge Increasing Leukocytosis, downtrending CRP - Continue tylenol, oxycodone, dilaudid PRN for pain control - Right calf pain noted, Venous Doppler negative - Podiatry following - recommending rehab as well as 4 weeks of antibiotic therapy upon discharge --- PT/OT recommending inpatient rehab, placement @ [facility] 03/13 --- Continue Cephalexiin 500 mg PO Q6h for 4 weeks duration per Podiatry recommendations KUN - Cr upon admission 1.7; baseline appears near 1.0, currently 1.3 - renal US neg - continue to hold lasix and metformin; continue NS at 80 mL/hr - will need to continue to re-evaluate fluid status to determine when lasix should be resumed --- Creatinine returned to baseline, return to Furosemide 20 mg PO daily upon discharge --- Recheck BMP w/ PCP at follow up (~ 1 week) Uncontrolled type 2 diabetes mellitus - Patient admitted with BSG in the 500s. - HbA1c 16.2. - No signs of acidosis. - Lantus and SSI while inpatient. Holding metformin for now. - Extensive discussion regarding pathogenesis and complications of DM as well as management methods --- Restart Metformin upon discharge --- Continue Lantus 25u BID and Novolog at CR of 4, discussed generalized adjustments up and down from 25u based on size/carb content of meals --- Strongly encourage continued DM education from PCP Chronic heart failure with preserved ejection fraction - Last echo 10/2022 showed EF 65-70% with LVH and mild - Continues to be euvolemic on exam - Lasix held inpatient for KUN --- Restart Lasix on discharge Sleep apnea - continue CPAP/BiPAP Peripheral arterial disease - will continue aspirin Hypertension - stable - continue metoprolol Contact Dermatitis - Benadryl x 1 - Hydrocortisone Cream x 1 (PRN) Diet: carb consistent, heart healthy VTE ppx: Lovenox Dispo: med/surg with tele, [facility] 03/13 Code: full Total Time Total Time Spent Total Time Spent (In Minutes): <30 Discharge Plan Discharge Items Patient Disposition: Transfer Long Term Fac Reason For Visit: RIGHT FOOT INFECTION, HYPERGLYCEMIA Discharge Diagnosis: Diabetic Foot Infection s/p Amputation Uncontrolled T2DM Activity: Per Instructions section Non-emergency contact: Primary Care Provider Call non-emergency contact if: you have any medication questions and your pain is not controlled Follow-up/Referrals: Kaushal Johnson MD [Primary Care Provider] - Diet: Carb Consistent or DM2 and Heart Healthy Addtl Attending Provider Instructions: for rehab -foot infection: stable, source controlled post op. In discussion with podiatry, right now they did feel that the infection was severe enough to require a prolonged course of antibioticscurrently presumptively 4 weeks of cephalexin (has grown purely pansensitive bacteria here). - Follow clinically, follow wound, ongoing wound care, ongoing podiatry follow- up - CBC/BMP, +/- inflammatory markers 23 times a week for now uncontrolled diabetes: Titrating basal/bolus insulinright now will be on 30 units of Lantus twice daily, carb ratio of 1: 4, although (see below) in discussion with the patient and his , it appears that more of a "soft carb counting" strategy will be something he can follow through with better after discharge. Mild transaminitisincidental finding AST 89. At some point 1-2 weeks, repeat CMP. see discharge summary/chart copy otherwise, thank you! for patient: foot infection -Fortunately, your foot infection is getting better. Unfortunately it did require surgical amputation of part of the infected bone, and obviously there is a wound that will take a while to heal - right now, we are anticipating a need for another 4 weeks of oral antibiotics, obviously the full duration for this will be "up in the air" because it will be far more determined on how you are examining/how you are healing and how you are feeling, but certainly it looks like a prolonged course of antibiotics will be in order - for the wound healing you will need ongoing follow-up with podiatry, as well as ongoing wound care - if anything hurts more, if there is pus coming from the wound, or if there is painful or bright redness spreading from the edges of the woundany of those would necessitate getting seen right away uncontrolled type 2 diabetes - as we discussed, unfortunately the uncontrolled diabetes really is directly why you are here with a foot infection - fundamentally the main problem with diabetes is that "high sugar clogs arteries"the higher you run, and the longer you run high, the more you are knocking off blood vessels that you cannot get back - generally speaking, anyone with an A1c above 7.0 is progressively more and more into the range of "high sugars clogging arteries"and frightening leg your most recent A1c was 16.2 - translating an A1c into "high sugars clog arteries" for day today managementpretty much anytime her sugar is above about 160, there will be some degree of small blood vessel clogging/damage going on - while right now the main problem you are running into with high sugars clogging arteries is the serious/concerning foot infection, and the sort of infections can happen again/get worse/lead to progressive amputations, actually is far more common for uncontrolled diabetes to lead to heart attacks and strokeswhen high sugars clog the arteries to our heart or brain, killing heart muscle or brain tissue. fundamentally, type 2 diabetes is heavily driven by the simple/starchy/sugary carbohydrates that we eatso while much of the instructions below pertaining to revamping/refining your insulin usage, it is absolutely critically important to start to identify simple/starchy/sugary carbohydrates you are eating and minimize those, so that you minimize "how diabetic" you are insulins: - What we are trying to do with insulins is basically mimic normal physiology. A normal pancreas will have a constant slow smolder of insulin when somebody is in a fasting state, to move a little bit of sugar floating around in the bloodstream from when they last ate/the little bit of sugar their liver is dumping out into the bloodstream into their muscles. When we eat, our pancreas makes a surge of insulin proportionate to the carbs that we take in, to get the meal out of our bloodstream and and our muscles fairly quickly - and trying to mimic normal physiology, it requires a few different types of insulingiven that the insulin cannot really work differently based on what your body is doingthe insulin "works how it works" and you learn to "think like a pancreas" in terms of dosing the insulin/controlling the sugar/following your sugars You have 2 different types of insulin: Lantus, and Log (Humalog/NovoLog) - Lantus acts as a "basal" insulinit covers your fasting metabolism. When you inject it slowly kicks in over about 2 hours, never really reaches a peak of activity, and slowly fades between hours 1824. - Log insulin acts as a "bolus" insulinit kicks in 15-30 minutes after you i nject it, reaches a peak about 90 minutes later, and wears off over 3-4 hours. - Generally speaking, you can "grade" the dose of your Lantus based on your fasting sugar (a reasonable goal being between 150526) - similarly, you can "great" the dose of your long insulin based off of the sugar about 2 hours after you have eaten/injected it (with a reasonable goal being between [id number]) - right now, it looks like your Lantus dose is "close to right" at 30 units twice a day. I say "close to right" because your sugars have improved a lot, although they are still not quite at goal, and obviously eating habits are often quite different at home than they are at the hospital. When you follow sugars in a fasting state, that we will allow you/your doctors to better adjust the Lantus dosing. - The main part of the work with this will be learning to adjust your log insulin dosing at meals. Given that each meal will be a bit different and the carbohydrates in it, the "trick" in dosing log insulin will be to try to match up how much log insulin you give yourself with how many carbohydrates you eat. - Since the log insulin reaches a peak at about 90 minutes after you take it, and when you eat your sugars are usually reaches a peak about an hour after you are done eating, checking sugar 2 hours after you have eaten/given your self log insulin becomes a great time to "grade your work" with a goal sugar of about [id number] - there are 2 main methods by which people can learn to adjust their log insulin dosing"hard carb counting" and "soft carb counting" - "hard carb counting" involves weighing and measuring everything that you eat, figuring out how many grams of carbohydrates are in it, and for yougiving yourself 1 unit of insulin for every 4 g of carbohydrates you eat. - "Soft carb counting" works more on educated trial and error and learning from your body. After talking to you, this seems to be what will be the most doable at home (as it would be for me to, if I were on insulin) - with this method, we will have you "center" on about 25 units of log insulin at each meal. At first, while you are learning from your body, basically everything you eat you will give yourself 25 units, check your sugar 2 hours later, and learn from the results. When you see sugars that are still too high, you will look at what you just ate, try to identify the carbohydrates in it, and either the next time: Eat less carbohydrate/sugar, or give yourself more insulin. If you see sugars that are too low, when you eat the same type of food, you will give yourself less insulin. - Generally, a good target to shoot for with this method is seeing sugars 2 hours after you eat between [id number]. (This is a little bit arbitrary, but figuring that we do not want to have you "bottom out" if we target no lower than 100, it should protect you from serious lows, and given that sugar higher than about 160 is where we start to see "high sugars clog arteries", this 1001 50 range keep you pretty safe overall) ----> as an example: When you go home, if you have your honey nut Cheerios and a can of peachesgive yourself 25 units of insulin. Check your sugar 2 hours later. Likely you might see that with the can of peaches/honey nut Cheerios, even with 25 units of log insulin, your sugar 2 hours later might still be 250. When you have breakfast of honey nut Cheerios and a banana, and to give yourself 25 units of insulin, you will likely see sugar 2 hours later much closer to/at goal of about 150. That would tell you 2 things: First, it would show you that the canned peaches have a lot more sugar in it than he realized, and you may want to try to get away from canned fruit if at all possible. Second, it would tell you that if you are going to eat canned fruit, you need to give yourself more insulin to get that sugar out of your bloodstream so it does not clog arteries. This is where the "trial and error" comes inthe next time you eat honey nut Cheerios and a can of peaches, you could try 28 units of insulin, you could try 30 units of insulin. The lei would be checking your sugar 2 hours later and learning from the results. Once you start to get a feel for things, you will be able to have a pretty good judgment call based on foods that are overall pretty similar. (For example, several slices of pizza would require similar insulin to a plate of pasta; chicken and broccoli would require similar insulin to salmon and asparagus). ---> At first, write down what you eat, how much insulin you give yourself, and what your sugar is 2 hours laterthis will help you sort out things that "do not make sense" because in my experience about 99.9% of the time the answer and a confusing question about sugar ends up being a mismatch between the insulin taken and the carbohydrates eaten. ---> It is also critical to check the sugar after you eat. Grading your work "by feel" with mealtime insulin is a little leg driving without a map and hoping you just end up in the right destination. -- Typically, we expect people on insulin to have about 50% of their total insulin on the day be the basal insulin (Lantus), and about 50% of their total insulin on the day being the bolus insulin (the total log insulin you have given yourself in that day). If you start to see things getting way out of balance, talk with your regular doctors to help figure out how to best adjust things back to a 50-50 (more or less). The problem if things get way out of balance is typically harder to figure out/harder to control sugars, or low sugars that seem to be a "surprise". Given that we are sending you out on pretty close to 50/50 (60 units of basal, and about 75 units of bolus) I would expect over the coming weeks, your doctors may need to adjust the basal (Lantus) a bit higher, but that is best figured out based on how you are doing. Again, remember that this is not simply to make numbers look good on a piece of paper. This is absolutely critical to keeping the rest of your foot, and doing the best you can to prevent future heart attacks and strokes. Also remember, I have seen many people improve their A1c by helen and bounds in one 3-month interval. As terrible as your sugar control is/as rapidly as you are corroded/clogging your blood vessels right now, a mild improvement is really like "shooting yourself in the foot is better than shooting yourself in the leg"i.e. there are a lot of people who might see your A1c go from 16-14 and say "good job"I would challenge you to say that that is really because he would have only put in a halfhearted effort. I would fully expect you to be able to make an improvement with an A1c into the single-digit range in 3 months (or better), and under good/perfect control by summer. Again, in my experience, generally speaking whenever people do not achieve such aggressive goals, it is usually because of a mismatch between the insulin they are taking and the carbohydrates they are eating. And again, I lay this challenge down not for me, or for numbers on a piece of paper, but literally to protect you from losing more of your foot, your other foot, or killing off heart muscle with heart attacks/killing brain tissue with strokes. It is critically important. You are absolutely worth taking care of! Pending Studies at Discharge: No Stand-Alone Forms: [facility] Skilled Items Patient informed of condition?: Yes DNR: No Discharge Level of Care: Acute rehab Communicable Disease: No Discharge Prognosis: Stable Lines: None Urinary Catheter: No Medications and DC Order Prescriptions: New insulin aspart U-100 [Novolog U-100 Insulin aspart] 100 unit/mL Solution 25 unit SC ACHS 30 Days Qty: 10 1RF Rx Instructions: Take 1 unit of insulin for ever 4 carbohydrates consumed. Anticipate need for 25 units needed for each meal with adjustments up/down based on carbohydrate content. insulin glargine [Lantus Solostar U-100 Insulin] 100 unit/mL (3 mL) insulin pen 30 unit subcut BID Qty: 15 0RF cephalexin 500 mg capsule 500 mg PO Q6H Qty: 120 0RF Continued aspirin [Adult Aspirin Regimen] 81 mg tablet,delayed release (DR/EC) 81 mg PO DAILY cholecalciferol (vitamin D3) 25 mcg (1,000 unit) capsule 25 mcg PO QAM (DME) [employer] G6 Sensor Device See Rx Instructions .Route Rx Instructions: As directed rosuvastatin 40 mg tablet 40 mg PO QAM (DME) pen needle, diabetic [BD Ultra-Fine Fanny Pen Needle] 32 gauge x 5/32" needle See Rx Instructions .Route Rx Instructions: As directed (DME) blood sugar diagnostic Strip See Rx Instructions .Route Rx Instructions: As directed gabapentin 600 mg Tablet 600 mg PO AMHS cyanocobalamin (vitamin B-12) [Vitamin B-12] 1,000 mcg Tablet 1,000 mcg PO QAM acetaminophen [Tylenol Extra Strength] 500 mg Tablet 500 - 1,000 mg PO Q8 PRN (Reason: Pain) pantoprazole 40 mg tablet,delayed release (DR/EC) 40 mg PO QAM metformin 1,000 mg tablet 1,000 mg PO BID potassium chloride 20 mEq Tablet,Er Particles/Crystals 40 meq PO QAM Qty: 60 0RF furosemide 20 mg tablet 20 mg PO QAM Mag 64 64 mg Tablet,Delayed Release (Dr/Ec) 64 mg PO QAM Qty: 30 1RF metoprolol tartrate 100 mg tablet 100 mg PO BID Qty: 60 0RF (DME) BiPap Machine Misc Rx Instructions: BiPAP 09/02, mask fit patient comfort, heated humidification, compliance download capabilities, [facility] [place], please use 's contact phone number; bupropion HCl [Wellbutrin SR] 200 mg tablet sustained-release 12 hr 300 mg PO QAM Discontinued insulin asp prt-insulin aspart [Novolog Mix 70-30FlexPen U-100] 100 unit/mL (70-30) insulin pen See Rx Instructions subcut BID Qty: 60 3RF Rx Instructions: 40 U with Breakfast, 20 U with supper, subcutaneously twice a day; Discharge Orders: Discharge Order (Routine); Ordered 03/15/23 Ordered By: Chetna Cutler Admission Data Admit Date/Time: 03/05/23 18:36 Attending Provider: Dusty Sofia Admit Provider: Luis Lopez Primary Care Provider: Kaushal Johnson. Other Providers: Ifeanyi Garcia; Milo Yu; [facility]; [facility] Supervising Physician Co-Signing Physician Notes I personally examined the patient and verified all lei points of history and exam, discussed case, and agree with decision making with Dr Cutler (+) BM. for SNF today. vitals noted nad heent nc at mmm breathing unlabored no accessory muscles good effort skin no rashes no pallor or icterus, foot dressed/wrapped, no tracking erythema DM foot infection; markedly uncontrolled DM with most recent A1c 16.2; continue basal/bolus -appreciate podiatry assistance -continue current abx coverage -> keflex - d/w podiatry - ~4wks total course abx depending on progress at follow up. ongoing wound and podiatry follow up - on both 03/11 and 03/12, had extensive discussion of DM and "why to care" ("high sugars clog arteries") and basics of DM self management/basal bolus insulin/"soft carb counting" with pt (both days)and (03/12)- expressed understanding. 03/13 built extensive discharge instructions for patient for home. today re-reviewed the overall ideas and management ConstipationMiraLAX - resolved otherwise as above; for SNF today Resident Activity Tracking Resident Involvement: Resident Care Provided Care Provided: Adult Hospital Medicine
[2023-03-13] MEDS: ENOXAPARIN INJ 40 MG/0.4 ML SYR SQ SCH (15:21)
--- NOTE | 2023-03-13 15:25 | Hospitalist Progress Note ---
Date of Service March 13, 2023 Assessment & Plan (1) Necrotic toes: (2) Cellulitis: (3) Right foot infection: (4) Uncontrolled type 2 diabetes mellitus with hyperglycemia, with long-term current use of insulin: (5) PAD (peripheral artery disease): (6) KUN (acute kidney injury): Plan Pt is a 57 yo male with PMH of uncontrolled DM, ADD, GERD, JENNIFFER, HLD, HTN, and HFpEF presenting from his site planner d/t concern for right foot infection w/ necrosis now s/p TMA on 03/06 with closure of incision on 03/10. Right foot infection w/ necrosis- s/p transmetatarsal amputation (03/06) - Right foot MRI showed fluid collection around great toe proximal phalanx and third toe with edema concerning for osteomyelitis. - Wound cx MSSA. Blood cultures negative. - S/p Transmetatarsal amputation 03/06, with complete closure 03/10 - Duplex studies as above - Vascular consulted, noting no need for vascular surgical intervention at this time (03/11) - Abx: s/p 1 dose of ceftriaxone, 3 days of dapto, 2 days of cefepime Narrowed abx coverage to cefazolin 2g q8hr 03/08 Increasing Leukocytosis, downtrending CRP 03/13 - Continue tylenol, oxycodone, dilaudid PRN for pain control - Right calf pain noted, Venous Doppler negative - Podiatry following - recommending rehab as well as 4 weeks of antibiotic therapy upon discharge --- PT/OT recommending inpatient rehab, placement @ [facility] 03/14 --- Will plan Cephalexin 1000 mg PO Q8h for 4 weeks duration upon discharge per Podiatry recommendations KUN - Cr upon admission 1.7; baseline appears near 1.0, currently 1.3 - renal US neg - continue to hold lasix and metformin; continue NS at 80 mL/hr - will need to continue to re-evaluate fluid status to determine need for Lasix --- Continue to follow creatinine, trending towards baseline Uncontrolled type 2 diabetes mellitus - Patient admitted with BSG in the 500s. - HbA1c 16.2. - No signs of acidosis. - Lantus and SSI while inpatient. Holding metformin for now. - Extensive discussion regarding pathogenesis and complications of DM as well as management methods --- Continue Lantus 25u BID and Novolog at CR of 4, discussed generalized adjustments up and down from 25u based on size/carb content of meals Chronic heart failure with preserved ejection fraction - Last echo 10/2022 showed EF 65-70% with LVH and mild - Continues to be euvolemic on exam - Lasix held inpatient for KUN Sleep apnea - continue CPAP/BiPAP Peripheral arterial disease - will continue aspirin Hypertension - stable - continue metoprolol Diet: carb consistent, heart healthy VTE ppx: Lovenox Dispo: med/surg with tele, [facility] 03/14 Code: full Admission and Anticipated Discharge Date Admission Date: March 05, 2023 Supervising Physician Co-Signing Physician Notes I personally examined the patient and verified all lei points of history and exam, discussed case, and agree with decision making with Dr Cutler Main complaint today is constipation. No nausea or vomiting just feeling bloated and uncomfortable vitals noted nad heent nc at mmm breathing unlabored no accessory muscles good effort skin no rashes no pallor or icterus, abdomen soft but mildly distended mild diffuse tenderness feeling full consistent with constipation. DM foot infection; markedly uncontrolled DM with most recent A1c 16.2; continue to titrate insulins (Raise basal to 30 units twice daily today) -appreciate podiatry assistance -continue current abx coverage -> keflex - d/w podiatry - ~4wks total course abx depending on progress at follow up - on both 03/11 and 03/12, had extensive discussion of DM and "why to care" ("high sugars clog arteries") and basics of DM self management/basal bolus insulin/"soft carb counting" with pt (both days)and (03/12)- expressed understanding. Today built extensive discharge instructions for patient for home. ConstipationMiraLAX otherwise as above Subjective 03/13: Patient resting in bed consuming breakfast upon arrival. Patient noted irritation that he was not yet home. Discussed with patient the recommendations that he transition to inpatient rehab following his inpatient hospital stay, he expressed understanding. He denied pain, fevers, chills, nausea, or bowel/bladder changes. Spoke with patient's who notes that she is unable to care for patient at home without him completing rehab as she herself is currently recovering from a medical procedure. Review of Systems Constitutional: See HPI Physical Exam Physical Exam: Constitutional: well appearing, no acute distress HEENT: normocephalic, no conjunctival injection CV: RRR, normal S1/S2, no MRG, clinically well perfused Respiratory: CTAB, no increased work of breathing Abd: non-distended, bowel sounds present MSK: right foot dressing clean and dry, 2+ PT pulses, no surrounding erythema, right calf/escalante TTP (improved) Skin: warm, dry, no rashes Neuro: alert, no FND noted Results & Data Results & Data Vital Signs (Past 12 Hours) Vital Signs Temp Pulse Pulse Resp BP BP Pulse Ox 03/13/23 10:52 37.4 C 92 H 12 117/66 93 03/13/23 07:59 36.8 C 83 13 112/69 98 03/13/23 07:31 78 03/13/23 04:00 37.4 C 74 16 115/67 96 O2 Del Method 03/13/23 10:52 Room Air 03/13/23 07:59 Room Air 03/13/23 07:31 03/13/23 04:00 Room Air Resident Activity Tracking Resident Involvement: Resident Care Provided Care Provided: Adult Hospital Medicine (2) Cellulitis Site of cellulitis: unspecified site Qualified Code(s): L03.90 - Cellulitis, unspecified
--- NOTE | 2023-03-13 16:48 | Billing Data ---
Date of Service March 13, 2023 Coding Level of Care Code 52461 SUB INP/OBS CARE MIN
[2023-03-14] MEDS: ceFAZolin 2000MG 2,000 MG/15 ML SYR IV SCH ×3 (01:54→18:07)
[2023-03-14] MEDS: SODIUM CHLORIDE 0.9% 1,000 ML IV SCH ×2 (03:28→18:06)
[2023-03-14 07:35] LABS: Hemoglobin 10.9 g/dl (14.0-18.0); Mean Corpuscular Hemoglobin 27.9 pg (25.0-34.0); Mean Corpuscular Hgb Conc 34.1 g/dL (32.0-36.0); Mean Corpuscular Volume 82.1 fL (80.0-100.0); Mean Platelet Volume 9.5 fL (9.4-12.4); Platelet Count 454 K/uL (130-400); RDW Coefficient of Variation 13.2 % (11.5-14.5); RDW Standard Deviation 39.8 fL (36.4-46.3); White Blood Count 15.28 K/ul (4.8-10.8)
[2023-03-14 07:45] LABS: BUN Creatinine Ratio 18.8 (10-20); Calcium 7.9 mg/dl (8.6-10.3); Creatinine Clr Calc Pharmacy 99.7 ml/min; Est GFR (African American) 110.5 ml/min; Est GFR (Non-African American) 95.4 ml/min; Potassium 4.1 mmol/L (3.5-5.1)
[2023-03-14] MEDS: GABAPENTIN 600 MG TAB PO SCH ×2 (07:52→20:41)
[2023-03-14] MEDS: ASPIRIN 81 MG ECTAB PO SCH (07:52)
[2023-03-14] MEDS: buPROPion SR 150 MG TABCR PO SCH (07:52)
[2023-03-14] MEDS: METOPROLOL TARTRATE 100 MG TAB PO SCH ×2 (07:53→20:42)
[2023-03-14] MEDS: PANTOprazole 40 MG TAB PO SCH (07:53)
[2023-03-14] MEDS: POTASSIUM CHLORIDE CRTAB 20 MEQ TABCR PO SCH (07:55)
[2023-03-14] MEDS ORDERED: POLYETHYLENE (MIRALAX) 17 GM PACK PO PRN (08:33)
[2023-03-14] MEDS: INSULIN ASPART PER UNIT CHARGE SC SCH ×4 (08:58→20:41)
[2023-03-14] MEDS: LANTUS PER UNIT CHARGE SQ SCH ×2 (08:59→20:42)
[2023-03-14] MEDS ORDERED: POLYETHYLENE (MIRALAX) 17 GM PACK PO STA (10:45)
[2023-03-14] MEDS: ROSUVASTATIN CALCIUM 20 MG TAB PO SCH (10:47)
[2023-03-14] MEDS: MAGNESIUM CHLORIDE W/CALCIUM 64MG DELAYED REL TAB PO SCH (10:47)
--- NOTE | 2023-03-14 13:16 | Billing Data ---
Date of Service March 14, 2023 Coding Level of Care Code 30286 IN/OBS DISCH 30 MIN/LESS
[2023-03-14] MEDS: ENOXAPARIN INJ 40 MG/0.4 ML SYR SQ SCH (14:45)
--- NOTE | 2023-03-14 16:03 | Hospitalist Progress Note ---
Date of Service March 14, 2023 Assessment & Plan (1) Necrotic toes: (2) Cellulitis: (3) Right foot infection: (4) Uncontrolled type 2 diabetes mellitus with hyperglycemia, with long-term current use of insulin: (5) PAD (peripheral artery disease): (6) KUN (acute kidney injury): Plan Pt is a 57 yo male with PMH of uncontrolled DM, ADD, GERD, JENNIFFER, HLD, HTN, and HFpEF presenting from his outpatient psychiatrist d/t concern for right foot infection w/ necrosis now s/p TMA on 03/06 with closure of incision on 03/10. Right foot infection w/ necrosis- s/p transmetatarsal amputation (03/06) - Right foot MRI showed fluid collection around great toe proximal phalanx and third toe with edema concerning for osteomyelitis. - Wound cx MSSA. Blood cultures negative. - S/p Transmetatarsal amputation 03/06, with complete closure 03/10 - Duplex studies as above - Vascular consulted, noting no need for vascular surgical intervention at this time (03/11) - Abx: s/p 1 dose of ceftriaxone, 3 days of dapto, 2 days of cefepime Narrowed abx coverage to cefazolin 2g q8hr 03/08, would plan Cephalexin upon discharge Increasing Leukocytosis, downtrending CRP - Continue tylenol, oxycodone, dilaudid PRN for pain control - Right calf pain noted, Venous Doppler negative - Podiatry following - recommending rehab as well as 4 weeks of antibiotic therapy upon discharge --- PT/OT recommending inpatient rehab, placement @ [facility] pending auth --- Continue Cephalexin 1000 mg PO Q8h for 4 weeks duration per Podiatry recommendations upon discharge KUN - Cr upon admission 1.7; baseline appears near 1.0, currently 1.3 - renal US neg - continue to hold lasix and metformin; continue NS at 80 mL/hr - will need to continue to re-evaluate fluid status to determine when lasix should be resumed --- Creatinine returned to baseline, return to Furosemide 20 mg PO daily upon discharge --- Recheck BMP w/ PCP at follow up (~ 1 week) Uncontrolled type 2 diabetes mellitus - Patient admitted with BSG in the 500s. - HbA1c 16.2. - No signs of acidosis. - Lantus and SSI while inpatient. Holding metformin for now. - Extensive discussion regarding pathogenesis and complications of DM as well as management methods --- Continue Lantus 25u BID and Novolog at CR of 4, discussed generalized adjustments up and down from 25u based on size/carb content of meals Chronic heart failure with preserved ejection fraction - Last echo 10/2022 showed EF 65-70% with LVH and mild - Continues to be euvolemic on exam - Lasix held inpatient for KUN Sleep apnea - continue CPAP/BiPAP Peripheral arterial disease - will continue aspirin Hypertension - stable - continue metoprolol Constipation - Miralax provided, successful bowel movement Diet: carb consistent, heart healthy VTE ppx: Lovenox Dispo: med/surg with tele, [facility] pending auth Code: full Admission and Anticipated Discharge Date Admission Date: March 05, 2023 Supervising Physician Co-Signing Physician Notes I personally examined the patient and verified all lei points of history and exam, discussed case, and agree with decision making with Dr Cutler still constipated when i see him. later nursing informed resident physician pt had large BM. vitals noted nad heent nc at mmm breathing unlabored no accessory muscles good effort skin no rashes no pallor or icterus, foot dressed/wrapped, no tracking erythema DM foot infection; markedly uncontrolled DM with most recent A1c 16.2; continue to titrate insulins (lantus now 30 bid) -appreciate podiatry assistance -continue current abx coverage -> keflex - d/w podiatry - ~4wks total course abx depending on progress at follow up. ongoing wound and podiatry follow up - on both 03/11 and 03/12, had extensive discussion of DM and "why to care" ("high sugars clog arteries") and basics of DM self management/basal bolus insulin/"soft carb counting" with pt (both days)and (03/12)- expressed u nderstanding. 03/13 built extensive discharge instructions for patient for home. -sugars overall much more reasonable today ConstipationMiraLAX - resolved Subjective 03/14: Patient in bed upon arrival. Patient aggravated by presence in the hospital and need for inpatient rehab, wants to be home for [place]. Patient denies any acute concerns. Review of Systems Constitutional: See HPI Physical Exam Physical Exam: Constitutional:NAD HEENT: NCAT CV: Exam declined Respiratory: Exam declined Abd: non-distended, bowel sounds present MSK: right foot dressing clean and dry, 2+ PT pulses, no surrounding erythema, right calf/escalante TTP (improved) Skin: warm, dry, no rashes Neuro: alert, no FND noted Results & Data Results & Data Vital Signs (Past 12 Hours) Vital Signs Temp Pulse Pulse Resp BP Pulse Ox O2 Del Method 03/14/23 15:43 37.0 C 80 18 113/68 96 Room Air 03/14/23 15:27 83 03/14/23 11:51 37.0 C 73 18 120/67 95 Room Air 03/14/23 08:36 37.3 C 89 18 145/75 H 96 Room Air 03/14/23 07:32 88 Resident Activity Tracking Resident Involvement: Resident Care Provided Care Provided: Adult Hospital Medicine (2) Cellulitis Site of cellulitis: unspecified site Qualified Code(s): L03.90 - Cellulitis, unspecified
--- NOTE | 2023-03-14 16:05 | Billing Data ---
Date of Service March 14, 2023 Coding Level of Care Code 23280 SUB INP/OBS CARE
--- NOTE | 2023-03-14 21:28 | Orthopedic Progress Note ---
Date of Service March 14, 2023 Assessment & Plan (1) Right foot infection: Plan: Patient seen, evaluated, and treated. Patient status post day #4 Right Foot Delayed Primary Closure (DOS: 03/10/23) DSD change. He is awaiting placement at SNF. Patient non weight bearing to surgical foot. Thank you for involving me in the care of this Patient. (2) Cellulitis: (3) PAD (peripheral artery disease): Admission and Anticipated Discharge Date Admission Date: March 05, 2023 Subjective Patient seen at bedside in 262-1. Patient resting comfortably with no complaints. He notes his has been discharged and he would like to be home for [place]. Physical Exam Constitutional: well developed, cooperative and comfortable Eyes: normal visual garrett by confrontation Neck: normal visual inspection and trachea midline Respiratory: normal respiratory effort Cardiovascular: Rate/Rhythm: regular rate and regular rhythm Vessels: posterior tibial pulses present and dorsalis pedis pulses present Musculoskeletal: Extremities: extremities normal to inspection and + amputation noted (Right foot TMA) Skin: + ulcer (Medial right foot. ), + wound ( Right transmetatarsal amputation site open) and + incision (TMA site well healed. Sutures intact.) Neurologic: moves all extremities (Loss of epicritic sensation) Psychiatric: Orientation: alert and oriented x 3 Results & Data Vital Signs (Past 12 Hours) Vital Signs Temp Pulse Pulse Resp BP BP Pulse Ox 03/14/23 19:14 03/14/23 19:00 36.7 C 85 18 125/73 95 03/14/23 15:43 37.0 C 80 18 113/68 96 03/14/23 15:27 83 03/14/23 11:51 37.0 C 73 18 120/67 95 O2 Del Method 03/14/23 19:14 Room Air 03/14/23 19:00 Room Air 03/14/23 15:43 Room Air 03/14/23 15:27 03/14/23 11:51 Room Air (2) Cellulitis Site of cellulitis: unspecified site Qualified Code(s): L03.90 - Cellulitis, unspecified
[2023-03-15] MEDS: ceFAZolin 2000MG 2,000 MG/15 ML SYR IV SCH (00:51)
[2023-03-15] MEDS: SODIUM CHLORIDE 0.9% 1,000 ML IV SCH (04:51)
[2023-03-15] MEDS: oxyCODONE HCL IR 5 MG TAB (IMMEDIATE RELEASE) PO PRN (08:11)
[2023-03-15] MEDS: METOPROLOL TARTRATE 100 MG TAB PO SCH (08:12)
[2023-03-15] MEDS: PANTOprazole 40 MG TAB PO SCH (08:12)
[2023-03-15] MEDS: ASPIRIN 81 MG ECTAB PO SCH (08:12)
[2023-03-15] MEDS: buPROPion SR 150 MG TABCR PO SCH (08:12)
[2023-03-15] MEDS: MAGNESIUM CHLORIDE W/CALCIUM 64MG DELAYED REL TAB PO SCH (08:12)
[2023-03-15] MEDS: ROSUVASTATIN CALCIUM 20 MG TAB PO SCH (08:12)
[2023-03-15] MEDS: GABAPENTIN 600 MG TAB PO SCH (08:12)
[2023-03-15] MEDS: POTASSIUM CHLORIDE CRTAB 20 MEQ TABCR PO SCH (08:15)
[2023-03-15] MEDS ORDERED: BUTT PASTE (ZINC OXIDE 16%) 171 APPLN/57 GM JAR EXT SCH (09:00)
[2023-03-15] MEDS ORDERED: HYDROCORTISONE 1% CRM 30 GM TUBE EXT PRN (09:10)
[2023-03-15] MEDS ORDERED: diphenhydrAMINE Capsule 25 MG CAP PO ONE (09:10)
[2023-03-15] MEDS: INSULIN ASPART PER UNIT CHARGE SC SCH ×2 (09:40→12:59)
[2023-03-15] MEDS: LANTUS PER UNIT CHARGE SQ SCH (09:41)
--- NOTE | 2023-03-15 10:24 | Billing Data ---
Date of Service March 15, 2023 Coding Level of Care Code 95394 IN/OBS DISCH 30 MIN/LESS
== END 2023-03-15 13:36 | DRG 617 ==
LOC: ED 15:04 → EDINP 18:36 → SUATTDRO 18:36 → EDINP 21:24 → 2W 03-06 01:51

== ENCOUNTER 2023-04-30 19:14 | Inpatient (IN) ==
[2023-04-30 19:50] LABS: Base Excess VBG -0.9 mEq/L; HCO3 VBG 26 mmol/L; Oxygen Saturation VBG < 60.0 %; PCO2 VBG 50 mmHg (38-50); PO2 VBG 20 mmHg; pH VBG 7.32 (7.36-7.41)
[2023-04-30 19:53] LABS: Basophils # (auto) 0.04 K/uL (0.00-0.20); Basophils % (auto) 0.4 %; Eosinophils # (auto) 0.15 K/uL (0.00-0.50); Eosinophils % (auto) 1.4 %; Hematocrit (blood only) 36.9 % (42.0-52.0); Hemoglobin 11.8 g/dl (14.0-18.0); Immature Granulocytes # (auto) 0.03 K/uL (0.01-0.20); Immature Granulocytes % (auto) 0.3 %; Lymphocytes # (auto) 0.87 K/uL (1.20-3.40); Lymphocytes % (auto) 8.3 %; Mean Corpuscular Hemoglobin 27.4 pg (25.0-34.0); Mean Corpuscular Volume 85.8 fL (80.0-100.0); Mean Platelet Volume 10.9 fL (9.4-12.4); Monocytes % (auto) 6.7 %; Neutrophils # (auto) 8.63 K/uL (1.40-6.50); Neutrophils % (auto) 82.9 %; Platelet Count 294 K/uL (130-400); White Blood Count 10.42 K/ul (4.8-10.8)
[2023-04-30 20:18] LABS: Albumin Globulin Ratio 1.1 (0.9-2); Albumin Level 4.1 gm/dl (3.4-5.0); Bilirubin,Total 0.5 mg/dl (0.2-1.0); Calcium 9.5 mg/dl (8.6-10.3); Est GFR (African American) 86.6 ml/min; Est GFR (Non-African American) 74.7 ml/min; Globulin 3.7 gm/dl (2.5-4.0); Magnesium 2.2 mg/dl (1.7-2.4); Potassium 5.4 mmol/L (3.5-5.1); Total Protein 7.8 gm/dl (6.0-8.3); Troponin I High Sensitivity 11.6 pg/ml (0-20)
[2023-04-30 20:26] LABS: Partial Thromboplastin Ratio 0.9; Partial Thromboplastin Time 26 Seconds (21-31); Prothrombin Time 11.3 Seconds (9.0-12.0)
[2023-04-30] MEDS ORDERED: VANCOMYCIN CONSULT ACTIVE PRN (21:47)
[2023-04-30] MEDS: SODIUM CHLORIDE 0.9% 1,000 ML IV ONE (21:50)
[2023-04-30] MEDS: VANCOMYCIN HCL 1,750 MG in SODIUM CHLORIDE 0.9% 500 ML IV ONE (22:18)
--- NOTE | 2023-04-30 22:29 | Emergency Department Note ---
Impression & Plan Acute hyperkalemia, Acute confusion ED Provider Note NAME: KY LOMBARDI AGE: 57 SEX: M : 1965 ARRIVES VIA: Ambulance INFORMANT: Patient, ED PROVIDER(S): Lee Ann Mcdaniel MD CHIEF COMPLAINT: HPI: This is a 57-year-old male presenting after syncopal episode. Patient is a longstanding diabetic, recent amputation of his right toes due to infection. He states he does not member where he was whether he was at his house or somebody else's house when he thinks that he passed out. He states he not really sure of how he got here with her was by ambulance some he dropped him off. He states that he does not member why or what he was doing, may be watching TV. As per nursing note, appears that patient upon arrival of EMS, had a blood pressure 67/40 which improved after fluid resuscitation. Patient's blood sugar for EMS was 535. While here it is in the 500s as well. Patient currently has no recollection of where he was. Currently complains of no pain, does appear somewhat confused however. ROS: See above HPI for pertinent positives & negatives. A total of 10 systems reviewed and were otherwise negative. PAST MEDICAL HISTORY: See Below PAST SURGICAL HISTORY: See Below FAMILY HISTORY: See Below SOCIAL HISTORY: See Below HOME MEDICATIONS: See Below ALLERGIES: See Below VITALS: See Below PHYSICAL EXAMINATION: General: resting comfortably in no acute distress Head: Normocephalic and atraumatic Eyes: Normal inspection, extraocular muscles intact Ear, nose, throat: Normal external exam Neck: Normal range of motion Respiratory: lungs clear to auscultation bilaterally Cardiovascular: Regular rate/rhythm, no murmur GI: soft, nontender, no guarding or rebound Extremities: nontender, moves all extremities Neuro: The patient awake and alert, appropriately conversive, no focal deficits, symmetric faces Skin: Warm, dry, and intact MEDICAL DECISION MAKING: This is a 57-year-old male presenting for syncopal episode. Patient was initially hypotensive, requiring fluid resuscitation. Will continue fluids as needed patient still has mild hypotension. Patient is otherwise asymptomatic without clear abnormalities on physical exam. Patient has no abdominal pain or shortness of breath. His left lower extremity is cooler than the right. Otherwise wound is well-healing to the right toes. -Patient has 1+ pulses in left lower extremity, will do Doppler to ensure no arterial clot -Patient blood sugars downtrending while he was fluid sensation, in the low 400s now. -Patient had elevated lactic acid on arrival which is now improved after fluids -Ultrasound reveals no acute clot, does have monophasic signals however in the PT/peroneal arteries otherwise multiphasic -At this time patient's blood work is otherwise reassuring however does show hypokalemia and slight hyponatremia -ECG independently interpreted by me with normal sinus rhythm, rate of 78, first-degree AV block, normal QRS, normal QTc, no ST segment elevations consistent with STEMI criteria, no peaked T waves -Patient required mission for hyperkalemia, confusion, hypotension of unclear etiology, and advised precaution, antibiotics were administered Differential diagnosis: Sepsis, arterial occlusion, cardiac syncope, seizure ER treatment provided: See below Diagnostics interpreted by me: ECG: None Cardiac Monitoring: An order was placed for continuous cardiac monitoring. The monitor shows a rate of 81 with sinus rhythm Laboratory studies: As stated above and show below. Imaging studies: See below. Past Med/Surg History Medical History (Updated 05/01/23 @ 01:12 by Lee Ann Mcdaniel MD) Necrotic toes Infected prosthetic knee joint Diabetic ulcer of right great toe Working with Dr. Campos, now s/p amputation KUN (acute kidney injury) Acute hyperglycemia Elevated troponin Elevated LFTs Gram-negative bacteremia Infection of total left knee replacement Leg swelling Fatigue Venous stasis ulcer Diabetic ulcer of left heel Seizure-like activity History of infection of total joint prosthesis of knee GERD (gastroesophageal reflux disease) Hx MRSA infection 2018> resolved Hx of diabetic foot ulcer Bulging lumbar disc GERD (gastroesophageal reflux disease) History of anemia Attention deficit disorder (ADD) Anxiety and depression History of kidney stones Cardiac murmur FOLLOWS WITH DR. GREENWOOD Serum potassium elevated Osteoarthritis Sleep apnea CPAP Acute on chronic congestive heart failure CHF (congestive heart failure) Obstructive sleep apnea syndrome Hyperlipidemia HTN (hypertension) Acute diastolic congestive heart failure Infection of prosthetic right knee joint Hypokalemia Streptococcal sepsis Hypophosphatemia Hyponatremia Ulcer of left midfoot Acquired bilateral hammer toes Callus Diabetic ulcer of left foot Cellulitis of left leg Pleural effusion DM type 2 (diabetes mellitus, type 2) Acquired claw toe of right foot Testicular pain Low back pain with sciatica History of diabetic ulcer of foot Dysesthesia Diabetic peripheral neuropathy associated with type 2 diabetes mellitus Surgical History History of tooth extraction History of open reduction and internal fixation (ORIF) procedure RT HAND S/P revision of total knee LEFT History of total left knee replacement History of revision of total replacement of knee joint (05/23/12) Amputated great toe of right foot History of colonoscopy History of wisdom tooth extraction Family History Father Family history of diabetes mellitus Other No family history of adverse response to anesthesia No pertinent family history Social History Smoking Status: Never smoker Second Hand Exposure: Yes; Do You Dip or Chew Tobacco: No; Hx Alcohol Use: No Hx Substance Use: No Preferred Language: Greenlandic Communication Ability: Effective Visual Impairment: Limited 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: No Beliefs That Will Affect Care: None marital status: Current Living Situation: Spouse and Family current occupational status: employed current occupation: [email or web address] , 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 How many Children do You have: 2 Feels Safe at Home: Yes Diet: diabetic during the past year weight has: remained stable Assistive Devices: Glasses and Walker Allergies Allergies Allergy/AdvReac Type Severity Reaction Status Date / Time levofloxacin AdvReac Intermediate GI SYMPTOMS Verified 02/01/23 13:37 pneumococcal vaccine AdvReac Intermediate GI Verified 02/01/23 13:37 SYMPTOMS-OK IF MULTIPLE VACCINES GIVEN SEPARATELY tetanus toxoid, adsorbed AdvReac Intermediate TETANUS/DIPTHERIA/PERTUSSIS-GI Verified 02/01/23 13:37 UPSTE/BODY ACHES Home Meds Home Medications Medication Instructions Recorded Confirmed gabapentin 600 mg tablet 600 mg PO AMHS 01/30/22 04/30/23 metformin 1,000 mg tablet 1,000 mg PO AMHS 01/30/22 04/30/23 pantoprazole 40 mg tablet,delayed 40 mg PO QAM 01/30/22 04/30/23 release aspirin 81 mg tablet,delayed 81 mg PO QAM 03/08/22 04/30/23 release (Adult Aspirin Regimen) cholecalciferol (vitamin D3) 25 25 mcg PO QAM 03/08/22 04/30/23 mcg (1,000 unit) capsule furosemide 20 mg tablet 20 mg PO QAM 11/12/22 04/30/23 blood sugar diagnostic 12/07/22 04/30/23 blood-glucose sensor (Dexcom G6 12/07/22 04/30/23 Sensor device) pen needle, diabetic 32 gauge x 12/07/22 04/30/23 5/32" (BD Ultra-Fine Fanny Pen Needle) BiPap Machine 03/05/23 04/30/23 bupropion HCl 300 mg 24 hr tablet, 300 mg PO QAM 04/25/23 04/30/23 extended release insulin aspart U-100 100 unit/mL See Rx Instructions SC ACHS 04/25/23 04/30/23 subcutaneous solution (Novolog U-100 Insulin aspart) lisinopril 2.5 mg tablet 2.5 mg PO DAILY 04/26/23 04/30/23 acetaminophen 325 mg tablet 650 mg PO Q6 PRN pain 1-10 04/30/23 04/30/23 aspirin 325 mg tablet 650 mg PO Q6 PRN temp>100 04/30/23 04/30/23 insulin glargine 100 unit/mL (3 22 unit subcut 04/30/23 04/30/23 mL) subcutaneous pen (Basaglar KwikPen U-100 Insulin) insulin glargine 100 unit/mL (3 30 unit subcut [facility] 04/30/23 04/30/23 mL) subcutaneous pen (Basaglar KwikPen U-100 Insulin) metoprolol tartrate 100 mg tablet 100 mg PO AMHS 04/30/23 04/30/23 rosuvastatin 40 mg tablet 40 mg PO HS 04/30/23 04/30/23 Previous Rx's Medication Instructions Recorded potassium chloride 20 mEq 40 meq (2 x 20 mEq) PO QAM #60 tabs 02/09/22 tablet,extended release(part/cryst) magnesium chloride 64 mg 64 mg PO QAM #30 tabs 11/13/22 (magnesium chloride) tablet,delayed release (Mag 64) cephalexin 500 mg capsule 500 mg PO Q6H #120 caps 03/13/23 Results & Data (ED) Vital Signs Vital Signs - 24 hr 04/30/23 19:21 04/30/23 19:22 04/30/23 19:22 Temperature 36.7 C Temperature Source Oral Pulse Rate 77 79 78 Pulse Rate from SpO2 Sensor 78 Pulse Rhythm Regular Pulse Strength Normal Respiratory Rate 18 23 Respiratory Effort / Characteristics Non-Labored Spontaneous Respiratory Depth Normal Respiratory Pattern Regular Blood Pressure 105/69 Blood Pressure Mean 81 Blood Pressure Position Lying Pulse Oximetry 95 99 Oxygen Delivery Method Room Air Sepsis Recent Fever Within 48 Hours No Sepsis New/Unexplained Change in Mental Status No Sepsis Action Taken by Nursing No Action Required 04/30/23 19:30 04/30/23 19:33 04/30/23 19:33 Temperature Temperature Source Pulse Rate 75 82 Pulse Rate from SpO2 Sensor 81 Pulse Rhythm Pulse Strength Respiratory Rate 16 22 Respiratory Effort / Characteristics Respiratory Depth Respiratory Pattern Blood Pressure 105/59 L Blood Pressure Mean 87 Blood Pressure Position Pulse Oximetry 99 Oxygen Delivery Method Sepsis Recent Fever Within 48 Hours Sepsis New/Unexplained Change in Mental Status Sepsis Action Taken by Nursing 04/30/23 19:38 04/30/23 19:40 04/30/23 19:50 Temperature Temperature Source Pulse Rate 77 81 81 Pulse Rate from SpO2 Sensor 82 81 Pulse Rhythm Regular Pulse Strength Respiratory Rate 16 17 15 Respiratory Effort / Characteristics Respiratory Depth Respiratory Pattern Blood Pressure Blood Pressure Mean Blood Pressure Position Pulse Oximetry 99 100 100 Oxygen Delivery Method Room Air Sepsis Recent Fever Within 48 Hours Sepsis New/Unexplained Change in Mental Status Sepsis Action Taken by Nursing 04/30/23 20:00 04/30/23 20:00 04/30/23 20:10 Temperature Temperature Source Pulse Rate 79 79 Pulse Rate from SpO2 Sensor 79 78 Pulse Rhythm Pulse Strength Respiratory Rate 16 13 Respiratory Effort / Characteristics Respiratory Depth Respiratory Pattern Blood Pressure 94/67 L Blood Pressure Mean 69 Blood Pressure Position Pulse Oximetry 99 99 Oxygen Delivery Method Sepsis Recent Fever Within 48 Hours Sepsis New/Unexplained Change in Mental Status Sepsis Action Taken by Nursing 04/30/23 20:20 04/30/23 20:30 04/30/23 20:30 Temperature Temperature Source Pulse Rate 80 75 Pulse Rate from SpO2 Sensor 80 76 Pulse Rhythm Pulse Strength Respiratory Rate 17 15 Respiratory Effort / Characteristics Respiratory Depth Respiratory Pattern Blood Pressure 96/61 L Blood Pressure Mean 69 Blood Pressure Position Pulse Oximetry 100 97 Oxygen Delivery Method Sepsis Recent Fever Within 48 Hours Sepsis New/Unexplained Change in Mental Status Sepsis Action Taken by Nursing 04/30/23 20:40 04/30/23 20:50 04/30/23 21:00 Temperature 36.7 C Temperature Source Oral Pulse Rate 74 91 H Pulse Rate from SpO2 Sensor 74 Pulse Rhythm Pulse Strength Respiratory Rate 19 12 12 Respiratory Effort / Characteristics Non-Labored Spontaneous Respiratory Depth Normal Respiratory Pattern Regular Blood Pressure Blood Pressure Mean Blood Pressure Position Pulse Oximetry 99 97 Oxygen Delivery Method Room Air Sepsis Recent Fever Within 48 Hours Sepsis New/Unexplained Change in Mental Status Sepsis Action Taken by Nursing 04/30/23 21:00 04/30/23 21:00 04/30/23 21:42 Temperature Temperature Source Pulse Rate 77 Pulse Rate from SpO2 Sensor 77 Pulse Rhythm Pulse Strength Respiratory Rate 12 Respiratory Effort / Characteristics Respiratory Depth Respiratory Pattern Blood Pressure 112/67 110/71 Blood Pressure Mean 82 83 Blood Pressure Position Pulse Oximetry 97 Oxygen Delivery Method Sepsis Recent Fever Within 48 Hours Sepsis New/Unexplained Change in Mental Status Sepsis Action Taken by Nursing 04/30/23 21:42 04/30/23 22:00 04/30/23 22:00 Temperature Temperature Source Pulse Rate 81 80 Pulse Rate from SpO2 Sensor Pulse Rhythm Pulse Strength Respiratory Rate 13 15 Respiratory Effort / Characteristics Respiratory Depth Respiratory Pattern Blood Pressure 111/72 Blood Pressure Mean 83 Blood Pressure Position Pulse Oximetry Oxygen Delivery Method Sepsis Recent Fever Within 48 Hours Sepsis New/Unexplained Change in Mental Status Sepsis Action Taken by Nursing 04/30/23 23:34 Temperature Temperature Source Pulse Rate 81 Pulse Rate from SpO2 Sensor Pulse Rhythm Pulse Strength Respiratory Rate Respiratory Effort / Characteristics Respiratory Depth Respiratory Pattern Blood Pressure Blood Pressure Mean Blood Pressure Position Pulse Oximetry Oxygen Delivery Method Sepsis Recent Fever Within 48 Hours Sepsis New/Unexplained Change in Mental Status Sepsis Action Taken by Nursing Laboratory Data 04/30/23 19:31 04/30/23 19:31 Lab Results 04/30/23 04/30/23 04/30/23 Range/Units 19:24 19:31 19:44 WBC 10.42 (4.8-10.8) K/ul RBC 4.30 L (4.70-6.10) M/uL Hgb 11.8 L (14.0-18.0) g/dl Hct 36.9 L (42.0-52.0) % MCV 85.8 (80.0-100.0) fL MCH 27.4 (25.0-34.0) pg MCHC 32.0 (32.0-36.0) g/dL RDW Std Deviation 47.0 H (36.4-46.3) fL RDW Coeff of Monica 15.0 H (11.5-14.5) % Plt Count 294 (130-400) K/uL MPV 10.9 (9.4-12.4) fL Immature Gran % (Auto) 0.3 % Neut % (Auto) 82.9 % Lymph % (Auto) 8.3 % Bibb % (Auto) 6.7 % Eos % (Auto) 1.4 % Baso % (Auto) 0.4 % Neut # (Auto) 8.63 H (1.40-6.50) K/uL Lymph # (Auto) 0.87 L (1.20-3.40) K/uL Bibb # (Auto) 0.70 H (0.11-0.59) K/uL Eos # (Auto) 0.15 (0.00-0.50) K/uL Baso # (Auto) 0.04 (0.00-0.20) K/uL Immature Gran # (Auto) 0.03 (0.01-0.20) K/uL PT 11.3 (9.0-12.0) Seconds INR 1.0 (0.9-1.1) APTT 26 (21-31) Seconds PTT Ratio 0.9 VBG pH 7.32 L (7.36-7.41) VBG pCO2 50 (38-50) mmHg VBG pO2 20 mmHg VBG HCO3 26 mmol/L VBG O2 Saturation < 60.0 % VBG Base Excess -0.9 mEq/L Sodium 131 L (136-145) mmol/L Potassium 5.4 H (3.5-5.1) mmol/L Chloride 98 (98-107) mmol/L Carbon Dioxide 25 (21-32) mmol/L Anion Gap 8 (3-11) BUN 27 H (6-23) mg/dl Creatinine 1.08 (0.6-1.4) mg/dl Est Cr Clr Drug Dosing 76.0 ml/min Est GFR ( Amer) 86.6 ml/min Est GFR (Non-Af Amer) 74.7 ml/min BUN/Creatinine Ratio 25.0 H (10-20) Glucose 490 H* (70-99(Fasting)) mg/dl POC Glucose 555 H* (70-99) mg/dl Lactate 2.4 H* (0.4-2.0) mmol/L Calcium 9.5 (8.6-10.3) mg/dl Magnesium 2.2 (1.7-2.4) mg/dl Total Bilirubin 0.5 (0.2-1.0) mg/dl AST 25 (13-39) U/L ALT 24 (7-52) U/L Alkaline Phosphatase 144 H (34-104) U/L Troponin I High Sens 11.6 (0-20) pg/ml Total Protein 7.8 (6.0-8.3) gm/dl Albumin 4.1 (3.4-5.0) gm/dl Globulin 3.7 (2.5-4.0) gm/dl Albumin/Globulin Ratio 1.1 (0.9-2) Procalcitonin 0.13 (0-0.5) ng/ml 04/30/23 04/30/23 Range/Units 22:34 23:06 WBC (4.8-10.8) K/ul RBC (4.70-6.10) M/uL Hgb (14.0-18.0) g/dl Hct (42.0-52.0) % MCV (80.0-100.0) fL MCH (25.0-34.0) pg MCHC (32.0-36.0) g/dL RDW Std Deviation (36.4-46.3) fL RDW Coeff of Monica (11.5-14.5) % Plt Count (130-400) K/uL MPV (9.4-12.4) fL Immature Gran % (Auto) % Neut % (Auto) % Lymph % (Auto) % Bibb % (Auto) % Eos % (Auto) % Baso % (Auto) % Neut # (Auto) (1.40-6.50) K/uL Lymph # (Auto) (1.20-3.40) K/uL Bibb # (Auto) (0.11-0.59) K/uL Eos # (Auto) (0.00-0.50) K/uL Baso # (Auto) (0.00-0.20) K/uL Immature Gran # (Auto) (0.01-0.20) K/uL PT (9.0-12.0) Seconds INR (0.9-1.1) APTT (21-31) Seconds PTT Ratio VBG pH (7.36-7.41) VBG pCO2 (38-50) mmHg VBG pO2 mmHg VBG HCO3 mmol/L VBG O2 Saturation % VBG Base Excess mEq/L Sodium (136-145) mmol/L Potassium (3.5-5.1) mmol/L Chloride (98-107) mmol/L Carbon Dioxide (21-32) mmol/L Anion Gap (3-11) BUN (6-23) mg/dl Creatinine (0.6-1.4) mg/dl Est Cr Clr Drug Dosing ml/min Est GFR ( Amer) ml/min Est GFR (Non-Af Amer) ml/min BUN/Creatinine Ratio (10-20) Glucose (70-99(Fasting)) mg/dl POC Glucose 412 H* (70-99) mg/dl Lactate 1.6 (0.4-2.0) mmol/L Calcium (8.6-10.3) mg/dl Magnesium (1.7-2.4) mg/dl Total Bilirubin (0.2-1.0) mg/dl AST (13-39) U/L ALT (7-52) U/L Alkaline Phosphatase (34-104) U/L Troponin I High Sens (0-20) pg/ml Total Protein (6.0-8.3) gm/dl Albumin (3.4-5.0) gm/dl Globulin (2.5-4.0) gm/dl Albumin/Globulin Ratio (0.9-2) Procalcitonin (0-0.5) ng/ml Administered Medications Sodium Chloride (Nss) 1,000 mls @ 100 mls/hr IV .Q10H ALL Stop: 05/30/23 23:44 Last Admin: 04/30/23 23:51 Dose: 100 mls/hr Documented By: ANGELA Discontinued Medications Sodium Chloride (Nss) 1,000 mls @ 999 mls/hr IV .Q1H1M ONE Stop: 04/30/23 22:46 Last Infusion: 04/30/23 22:53 Dose: Infused Documented By: Admin: 04/30/23 21:50 Dose: 999 mls/hr Documented By: ANGELA Vancomycin HCl 1,750 mg/ (Sodium Chloride) 535 mls @ 200 mls/hr IV NOW ONE Stop: 05/01/23 00:27 Last Admin: 04/30/23 22:18 Dose: 200 mls/hr Documented By: ANGELA Insulin Human Regular (Novolin-R Insulin Per Unit Charge) 8 units IV NOW STA Stop: 04/30/23 22:30 Last Admin: 04/30/23 23:46 Dose: 8 units Documented By: ANGELA Co-signed By: [facility] Imaging Data Radiologist's Impression: Duplex Scan Lower Extremity Artery 04/30/23 20:10 Exam(s): US ARTERIAL LEFT LOWER EXTREMITY EXAM: US Duplex Left Lower Extremity Arteries CLINICAL HISTORY: Reason for exam: cold leg, minimal pulses. TECHNIQUE: Real-time duplex ultrasound scan of the left lower extremity arteries integrating B-mode two-dimensional vascular structure, Doppler spectral analysis and color flow Doppler imaging. COMPARISON: No relevant prior studies available. FINDINGS: Left common femoral artery: No acute findings. No occlusion or significant stenosis on color flow and spectral Doppler imaging. Normal waveform. Left superficial femoral artery: No acute findings. No occlusion or significant stenosis on color flow and spectral Doppler imaging. Normal waveform. Left popliteal artery: No acute findings. No occlusion or significant stenosis on color flow and spectral Doppler imaging. Normal waveform. Left calf/foot arteries: Monophasic waveforms within the left posterior tibial and peroneal arteries.. Soft tissues: Unremarkable. IMPRESSION: Multiphasic flow seen throughout the left lower extremity with monophasic flow seen within the posterior tibial and peroneal arteries. Electronically signed by: Dusty Mackenzie MD 04/30/23 22:33 PM Discharge Plan Visit Data Chief Complaint: Syncope Stated Complaint: SYNCOPE, HYPOTENSION ED Provider: Lee Ann Mcdaniel Discharge Problem: Acute hyperkalemia, Acute confusion Forms Stand Alone Forms: My [facility] Prescriptions Prescriptions: No Action aspirin [Adult Aspirin Regimen] 81 mg tablet,delayed release (DR/EC) 81 mg PO QAM cholecalciferol (vitamin D3) 25 mcg (1,000 unit) capsule 25 mcg PO QAM (DME) Dexcom G6 Sensor Device See Rx Instructions .Route Rx Instructions: As directed (DME) pen needle, diabetic [BD Ultra-Fine Fanny Pen Needle] 32 gauge x 5/32" needle See Rx Instructions .Route Rx Instructions: As directed (DME) blood sugar diagnostic Strip See Rx Instructions .Route Rx Instructions: As directed insulin aspart U-100 [Novolog U-100 Insulin aspart] 100 unit/mL solution See Rx Instructions SC ACHS Rx Instructions: per sliding scale Subcutaneously before meals and at bedtime; Take 1 unit of insulin for ever 4 carbohydrates consumed. Anticipate need for 25 units needed for each meal with adjustments up/down based on carbohydrate content. bupropion HCl 300 mg tablet extended release 24 hr 300 mg PO QAM lisinopril 2.5 mg tablet 2.5 mg PO DAILY gabapentin 600 mg Tablet 600 mg PO AMHS pantoprazole 40 mg tablet,delayed release (DR/EC) 40 mg PO QAM metformin 1,000 mg tablet 1,000 mg PO AMHS potassium chloride 20 mEq Tablet,Er Particles/Crystals 40 meq PO QAM Qty: 60 0RF furosemide 20 mg tablet 20 mg PO QAM Mag 64 64 mg Tablet,Delayed Release (Dr/Ec) 64 mg PO QAM Qty: 30 1RF (DME) BiPap Machine Misc Rx Instructions: BiPAP 09/02, mask fit patient comfort, heated humidification, compliance download capabilities, DME aero care, please use 's contact phone number; cephalexin 500 mg capsule 500 mg PO Q6H Qty: 120 0RF acetaminophen 325 mg Tablet 650 mg PO Q6 MDD 3g PRN (Reason: pain 1-10) aspirin 325 mg Tablet 650 mg PO Q6 MDD 3g PRN (Reason: temp>100) Rx Instructions: while awake rosuvastatin 40 mg Tablet 40 mg PO HS metoprolol tartrate 100 mg tablet 100 mg PO AMHS insulin glargine [Basaglar KwikPen U-100 Insulin] 100 unit/mL (3 mL) insulin pen 22 unit SUBCUT HS insulin glargine [Basaglar KwikPen U-100 Insulin] 100 unit/mL (3 mL) insulin pen 30 unit SUBCUT QAM Referrals Referrals: Kaushal Johnson MD [Primary Care Provider] -
--- NOTE | 2023-04-30 22:34 | Ultrasound Report ---
Exam(s): US ARTERIAL LEFT LOWER EXTREMITY EXAM: US Duplex Left Lower Extremity Arteries CLINICAL HISTORY: Reason for exam: cold leg, minimal pulses. TECHNIQUE: Real-time duplex ultrasound scan of the left lower extremity arteries integrating B-mode two-dimensional vascular structure, Doppler spectral analysis and color flow Doppler imaging. COMPARISON: No relevant prior studies available. FINDINGS: Left common femoral artery: No acute findings. No occlusion or significant stenosis on color flow and spectral Doppler imaging. Normal waveform. Left superficial femoral artery: No acute findings. No occlusion or significant stenosis on color flow and spectral Doppler imaging. Normal waveform. Left popliteal artery: No acute findings. No occlusion or significant stenosis on color flow and spectral Doppler imaging. Normal waveform. Left calf/foot arteries: Monophasic waveforms within the left posterior tibial and peroneal arteries.. Soft tissues: Unremarkable. IMPRESSION: Multiphasic flow seen throughout the left lower extremity with monophasic flow seen within the posterior tibial and peroneal arteries. Electronically signed by: Dusty Mackenzie MD 04/30/23 22:33 PM
[2023-04-30] MEDS: NovoLIN-R INSULIN PER UNIT CHARGE IV STA (22:40)
--- NOTE | 2023-04-30 23:45 | History & Physical Report ---
Date of Service April 30, 2023 Assessment & Plan (1) Syncope and collapse: (2) Acute confusion: (3) Osteomyelitis of right foot: (4) Diabetic ulcer of right great toe: (5) PAD (peripheral artery disease): (6) Uncontrolled type 2 diabetes mellitus with hyperglycemia, with long-term current use of insulin: (7) Chronic heart failure with preserved ejection fraction (HFpEF): (8) CKD (chronic kidney disease): (9) Frequent falls: (10) Memory loss: (11) Uncontrolled type 2 diabetes mellitus with diabetic neuropathy, with long- term current use of insulin: Plan Syncope and collapse/history of frequent falls/memory loss/acute confusion- CT scan of head ordered and pending Contributing factors including not limited to hyperglycemia with glucose 412, residual right foot infection, dehydration, progression of underlying previous memory loss Admit to monitored bed Uncontrolled diabetes mellitus with hyperglycemia- Glucose 412 on admission Regular insulin 8 units IV already ordered by the emergency department Unsure if patient is actually taking his glargine at home Reduce glargine from 30-20 in the subcu twice daily, with dose this evening after getting IV regular insulin Placed on Accu-Cheks with NovoLog SSI Status post 1 L normal saline in the ED Continue normal saline at 100 mL/h Hold metformin CBC with differential, chemistry profile and magnesium level in the a.m. MSSA osteomyelitis involving right foot/status post amputation on 03/06/2023- Place on vancomycin IV and Zosyn IV due to uncontrolled diabetes history Order MRI right foot and ankle Hypotension- Blood pressure initially 90/67, has improved to 131/78 with IV fluid rehydration as noted Hold furosemide, and lisinopril Reduce metoprolol to tartrate 100 mg p.o. twice daily to 50 mg p.o. twice daily with hold parameters History of Present Illness Chief Complaint: The patient presents to the emergency department after a syncopal episode followed by confusion, with the patient not remembering where he was when he p assed out, and how he was brought to the emergency department. Primary Care Provider: Kaushal Johnson MD The patient is a 57-year-old male with a past medical history including PAD, right foot osteomyelitis status post toe amputation on 03/06/[address] Garcia, uncontrolled diabetes mellitus type 2 on insulin, HFpEF, V. tach, CKD, neuropathy, hypertension and hyperlipidemia. The patient was most recently admitted to [facility] from 03/05-03/15/2023 due to her right foot MSSA osteomyelitis, and underwent toe amputation. The patient presents to the emergency department today with an episode of syncope, and confusion following. Upon arrival to the emergency department he was noted to be confused, and hypot ensive with blood pressure 94/67. The symptoms improved somewhat with initial emergency department interventions of normal saline 1 L bolus and vancomycin 1750 mg IV. Significant laboratories: Potassium 5.4, glucose 412, lactate 2.4. Allergies Allergy/AdvReac Type Severity Reaction Status Date / Time levofloxacin AdvReac Intermediate GI SYMPTOMS Verified 02/01/23 13:37 pneumococcal vaccine AdvReac Intermediate GI Verified 02/01/23 13:37 SYMPTOMS-OK IF MULTIPLE VACCINES GIVEN SEPARATELY tetanus toxoid, adsorbed AdvReac Intermediate TETANUS/DIPTHERIA/PERTUSSIS-GI Verified 02/01/23 13:37 UPSTE/BODY ACHES Home Medications Medication Instructions Recorded Confirmed Type gabapentin 600 mg tablet 600 mg PO AMHS 01/30/22 04/30/23 History metformin 1,000 mg tablet 1,000 mg PO AMHS 01/30/22 04/30/23 History pantoprazole 40 mg tablet,delayed 40 mg PO QAM 01/30/22 04/30/23 History release potassium chloride 20 mEq 40 meq (2 x 20 mEq) PO QAM #60 tabs 02/09/22 04/30/23 Rx tablet,extended release(part/cryst) aspirin 81 mg tablet,delayed 81 mg PO QAM 03/08/22 04/30/23 History release (Adult Aspirin Regimen) cholecalciferol (vitamin D3) 25 25 mcg PO QAM 03/08/22 04/30/23 History mcg (1,000 unit) capsule furosemide 20 mg tablet 20 mg PO QAM 11/12/22 04/30/23 History magnesium chloride 64 mg 64 mg PO QAM #30 tabs 11/13/22 04/30/23 Rx (magnesium chloride) tablet,delayed release (Mag 64) blood sugar diagnostic 12/07/22 04/30/23 History blood-glucose sensor (Dexcom G6 12/07/22 04/30/23 History Sensor device) pen needle, diabetic 32 gauge x 12/07/22 04/30/23 History 5/32" (BD Ultra-Fine Fanny Pen Needle) BiPap Machine 03/05/23 04/30/23 History cephalexin 500 mg capsule 500 mg PO Q6H #120 caps 03/13/23 04/30/23 Rx bupropion HCl 300 mg 24 hr tablet, 300 mg PO QAM 04/25/23 04/30/23 History extended release insulin aspart U-100 100 unit/mL See Rx Instructions SC ACHS 04/25/23 04/30/23 History subcutaneous solution (Novolog U-100 Insulin aspart) lisinopril 2.5 mg tablet 2.5 mg PO DAILY 04/26/23 04/30/23 History acetaminophen 325 mg tablet 650 mg PO Q6 PRN pain 1-10 04/30/23 04/30/23 History aspirin 325 mg tablet 650 mg PO Q6 PRN temp>100 04/30/23 04/30/23 History insulin glargine 100 unit/mL (3 22 unit subcut HS 04/30/23 04/30/23 History mL) subcutaneous pen (Basaglar KwikPen U-100 Insulin) insulin glargine 100 unit/mL (3 30 unit subcut QAM 04/30/23 04/30/23 History mL) subcutaneous pen (Basaglar KwikPen U-100 Insulin) metoprolol tartrate 100 mg tablet 100 mg PO AMHS 04/30/23 04/30/23 History rosuvastatin 40 mg tablet 40 mg PO HS 04/30/23 04/30/23 History Past Med/Surg History Medical History (Updated 05/01/23 @ 03:04 by Quentin Gray MD) Diabetic ulcer of right great toe Working with Dr. Campos, now s/p amputation Necrotic toes Infected prosthetic knee joint KUN (acute kidney injury) Acute hyperglycemia Elevated troponin Elevated LFTs Gram-negative bacteremia Infection of total left knee replacement Leg swelling Fatigue Venous stasis ulcer Diabetic ulcer of left heel Seizure-like activity History of infection of total joint prosthesis of knee GERD (gastroesophageal reflux disease) Hx MRSA infection 2018> resolved Hx of diabetic foot ulcer Bulging lumbar disc GERD (gastroesophageal reflux disease) History of anemia Attention deficit disorder (ADD) Anxiety and depression History of kidney stones Cardiac murmur FOLLOWS WITH DR. GREENWOOD Serum potassium elevated Osteoarthritis Sleep apnea CPAP Acute on chronic congestive heart failure CHF (congestive heart failure) Obstructive sleep apnea syndrome Hyperlipidemia HTN (hypertension) Acute diastolic congestive heart failure Infection of prosthetic right knee joint Hypokalemia Streptococcal sepsis Hypophosphatemia Hyponatremia Ulcer of left midfoot Acquired bilateral hammer toes Callus Diabetic ulcer of left foot Cellulitis of left leg Pleural effusion DM type 2 (diabetes mellitus, type 2) Acquired claw toe of right foot Testicular pain Low back pain with sciatica History of diabetic ulcer of foot Dysesthesia Diabetic peripheral neuropathy associated with type 2 diabetes mellitus Surgical History History of tooth extraction History of open reduction and internal fixation (ORIF) procedure RT HAND S/P revision of total knee LEFT History of total left knee replacement History of revision of total replacement of knee joint (05/23/12) Amputated great toe of right foot History of colonoscopy History of wisdom tooth extraction Family History Father Family history of diabetes mellitus Other No family history of adverse response to anesthesia No pertinent family history Social History Smoking Status: Never smoker Second Hand Exposure: Yes; Do You Dip or Chew Tobacco: No; Hx Alcohol Use: Yes Alcohol type: beer Hx Substance Use: No Preferred Language: Amharic Communication Ability: Effective Visual Impairment: Limited Multiple Drum Sander Required: No Beliefs That Will Affect Care: None marital status: Current Living Situation: Spouse current occupational status: employed current occupation: [employer] , 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 How many Children do You have: 2 Feels Safe at Home: Yes Safety Concerns: Feels Safe At This Time Diet: diabetic during the past year weight has: remained stable Assistive Devices: Denture - Upper, Glasses, Walker and Wheelchair Review of Systems Review of Systems: The patient denies chest pain, palpitations, shortness of breath, dyspnea on exertion, cough, sore throat, fevers, chills, sweats, weight change, fatigue, nausea, vomiting, diarrhea , constipation, abdominal pain, pelvic pain, blood in urine or stool, dysuria, urinary frequency or urgency, abnormal bruising or bleeding, focal or generalized weakness, numbness or tingling in arms , generalized arthralgias or myalgias, back or neck pain, or night sweats. The review of systems is otherwise negative other than for that already noted above, and at least 10 systems have been reviewed. Physical Exam Physical Exam: The patient is awake, still intermittently confused, normocephalic and atraumatic, lying in bed and in no acute distress. HEENT--PERRL, EOMI, mucous membranes and oropharynx dry. Neck--supple. No JVD. No bruits. Thyroid normal, trachea midline, no gifty opathy. Heart--normal S1 and S2. No murmurs, rubs or gallops. Lungs--clear bilaterally, no respiratory distress, no accessory muscle use. Abdomen--normal bowel sounds and soft. Nontender. Nondistended, no hernias or masses, no organomegaly. Extremities--no cyanosis or clubbing. No edema. There are good distal pulses b/l. Dermatologic--left lower extremity normal. Right lower extremity with well- healed approximated incision. Eschar with mild surrounding edema at heel base, medial malleolar abrasion with mild erythema Neurologic--cranial nerves II through XII grossly intact. Rheumatologic--limited exam due to left ankle and foot wrapping and infection Psychiatric--intermittently confused. Results & Data Results & Data Vital Signs (Past 12 Hours) Vital Signs Temp Pulse Resp BP Pulse Ox O2 Del Method 04/30/23 23:34 81 04/30/23 22:00 80 15 04/30/23 22:00 111/72 04/30/23 21:42 81 13 04/30/23 21:42 110/71 04/30/23 21:00 77 12 97 04/30/23 21:00 112/67 04/30/23 21:00 36.7 C 12 97 Room Air 04/30/23 20:50 91 H 12 04/30/23 20:40 74 19 99 04/30/23 20:30 75 15 97 04/30/23 20:30 96/61 L 04/30/23 20:20 80 17 100 04/30/23 20:10 79 13 99 04/30/23 20:00 79 16 99 04/30/23 20:00 94/67 L 04/30/23 19:50 81 15 100 04/30/23 19:40 81 17 100 04/30/23 19:38 77 16 99 Room Air 04/30/23 19:33 82 22 99 04/30/23 19:33 105/59 L 04/30/23 19:30 75 16 04/30/23 19:22 78 23 99 04/30/23 19:22 79 04/30/23 19:21 36.7 C 77 18 105/69 95 Room Air Laboratory Results Laboratory Results WBC 10.42 K/ul (4.8-10.8) 04/30/23 19:31 RBC 4.30 M/uL (4.70-6.10) L 04/30/23 19:31 Hgb 11.8 g/dl (14.0-18.0) L 04/30/23 19:31 Hct 36.9 % (42.0-52.0) L 04/30/23 19:31 MCV 85.8 fL (80.0-100.0) 04/30/23 19:31 MCH 27.4 pg (25.0-34.0) 04/30/23 19:31 MCHC 32.0 g/dL (32.0-36.0) 04/30/23 19:31 RDW Std Deviation 47.0 fL (36.4-46.3) H 04/30/23 19:31 RDW Coeff of Monica 15.0 % (11.5-14.5) H 04/30/23 19:31 Plt Count 294 K/uL (130-400) 04/30/23 19:31 MPV 10.9 fL (9.4-12.4) 04/30/23 19:31 Immature Gran % (Auto) 0.3 % 04/30/23 19:31 Neut % (Auto) 82.9 % 04/30/23 19:31 Lymph % (Auto) 8.3 % 04/30/23 19:31 [place] % (Auto) 6.7 % 04/30/23 19:31 Eos % (Auto) 1.4 % 04/30/23 19:31 Baso % (Auto) 0.4 % 04/30/23 19:31 Neut # (Auto) 8.63 K/uL (1.40-6.50) H 04/30/23 19:31 Lymph # (Auto) 0.87 K/uL (1.20-3.40) L 04/30/23 19:31 [place] # (Auto) 0.70 K/uL (0.11-0.59) H 04/30/23 19:31 Eos # (Auto) 0.15 K/uL (0.00-0.50) 04/30/23 19:31 Baso # (Auto) 0.04 K/uL (0.00-0.20) 04/30/23 19:31 Immature Gran # (Auto) 0.03 K/uL (0.01-0.20) 04/30/23 19:31 PT 11.3 Seconds (9.0-12.0) 04/30/23 19: INR 1.0 (0.9-1.1) 04/30/23 19: APTT 26 Seconds (21-31) 04/30/23: PTT Ratio 0.9 04/30/23 19:31 VBG pH 7.32 (7.36-7.41) L 04/30/23 19:44 VBG pCO2 50 mmHg (38-50) 04/30/23 19:44 VBG pO2 20 mmHg 04/30/23 19:44 VBG HCO3 26 mmol/L 04/30/23 19:44 VBG O2 Saturation < 60.0 % 04/30/23 19:44 VBG Base Excess -0.9 mEq/L 04/30/23 19:44 Sodium 131 mmol/L (136-145) L 04/30/23 19: Potassium 5.4 mmol/L (3.5-5.1) H 04/30/23 19:31 Chloride 98 mmol/L (98-107) 04/30/23: Carbon Dioxide 25 mmol/L (21-32) 04/30/23 19:31 Anion Gap 8 (3-11) 04/30/23 19:31 BUN 27 mg/dl (6-23) H 04/30/23 19:31 Creatinine 1.08 mg/dl (0.6-1.4) 04/30/23 19: Est Cr Clr Drug Dosing 76.0 ml/min 04/30/23 19:31 Est GFR ( Amer) 86.6 ml/min 04/30/23 19:31 Est GFR (Non-Af Amer) 74.7 ml/min 04/30/23 19:31 BUN/Creatinine Ratio 25.0 (10-20) H 04/30/23 19:31 Glucose 490 mg/dl (70-99(Fasting)) H* 04/30/23 19:31 POC Glucose 317 mg/dl (70-99) H* 05/01/23 01:25 Lactate 1.6 mmol/L (0.4-2.0) 04/30/23 23:06 Calcium 9.5 mg/dl (8.6-10.3) 04/30/23 19:31 Magnesium 2.2 mg/dl (1.7-2.4) 04/30/23 19:31 Total Bilirubin 0.5 mg/dl (0.2-1.0) 04/30/23 19:31 AST 25 U/L (13-39) 04/30/23 19:31 ALT 24 U/L (7-52) 04/30/23 19:31 Alkaline Phosphatase 144 U/L (34-104) H 04/30/23 19:31 Troponin I High Sens 11.6 pg/ml (0-20) 04/30/23 19:31 Total Protein 7.8 gm/dl (6.0-8.3) 04/30/23 19:31 Albumin 4.1 gm/dl (3.4-5.0) 04/30/23 19:31 Globulin 3.7 gm/dl (2.5-4.0) 04/30/23 19:31 Albumin/Globulin Ratio 1.1 (0.9-2) 04/30/23 19:31 Procalcitonin 0.13 ng/ml (0-0.5) 04/30/23 19:31 Urine Color Yellow 05/01/23 Unknown Urine Appearance Clear (Clear) 05/01/23 Unknown Urine pH 6.0 (4.5-7.5) 05/01/23 Unknown Ur Specific [place] 1.023 (1.000-1.030) 05/01/23 Unknown Urine Protein 1+ (Negative) H 05/01/23 Unknown Urine Glucose (UA) 3+ (Negative) H 05/01/23 Unknown Urine Ketones Negative (Negative) 05/01/23 Unknown Urine Blood Negative (Negative) 05/01/23 Unknown Urine Nitrite Negative (Negative) 05/01/23 Unknown Urine Bilirubin Negative (Negative) 05/01/23 Unknown Urine Urobilinogen Negative (Negative) 05/01/23 Unknown Ur Leukocyte Esterase Negative (Negative) 05/01/23 Unknown Urine WBC (Auto) 1-5 /hpf (0-5) 05/01/23 Unknown Urine RBC (Auto) 0-4 /hpf (0-4) 05/01/23 Unknown U Hyaline Cast (Auto) 0 /lpf (0-5) 05/01/23 Unknown U Epithel Cells (Auto) 0-5 /lpf (0-5) 05/01/23 Unknown Urine Bacteria (Auto) Negative (Negative) 05/01/23 Unknown Impressions Duplex Scan Lower Extremity Artery 04/30/23 20:10 Exam(s): US ARTERIAL LEFT LOWER EXTREMITY EXAM: US Duplex Left Lower Extremity Arteries CLINICAL HISTORY: Reason for exam: cold leg, minimal pulses. TECHNIQUE: Real-time duplex ultrasound scan of the left lower extremity arteries integrating B-mode two-dimensional vascular structure, Doppler spectral analysis and color flow Doppler imaging. COMPARISON: No relevant prior studies available. FINDINGS: Left common femoral artery: No acute findings. No occlusion or significant stenosis on color flow and spectral Doppler imaging. Normal waveform. Left superficial femoral artery: No acute findings. No occlusion or significant stenosis on color flow and spectral Doppler imaging. Normal waveform. Left popliteal artery: No acute findings. No occlusion or significant stenosis on color flow and spectral Doppler imaging. Normal waveform. Left calf/foot arteries: Monophasic waveforms within the left posterior tibial and peroneal arteries.. Soft tissues: Unremarkable. IMPRESSION: Multiphasic flow seen throughout the left lower extremity with monophasic flow seen within the posterior tibial and peroneal arteries. Electronically signed by: Dusty Mackenzie MD 04/30/23 22:33 PM Foot MRI 05/01/23 00:29 Exam(s): MRI RIGHT FOOT Without Contrast EXAM: MR Right Lower Extremity Without Intravenous Contrast, Foot CLINICAL HISTORY: Reason for exam: osteo, s/p amputation of toes. TECHNIQUE: Multiplanar magnetic resonance images of the right foot without intravenous contrast. COMPARISON: No relevant prior studies available. FINDINGS: LIGAMENTS: Medial collateral: Unremarkable. Lateral collateral: Unremarkable. Lisfranc: Unremarkable. TENDONS: Flexor: Unremarkable. Extensor: Unremarkable. Peroneal: Unremarkable. Tibialis anterior: Unremarkable. Tibialis posterior: Unremarkable. Muscles: Unremarkable. Fluid: Unremarkable. No joint effusion. Sinus tarsi: Unremarkable as visualized. Tarsal tunnel: Unremarkable. Plantar fascia: Unremarkable. Cartilage: Unremarkable. Bones/joints: Unremarkable. No acute fracture. Soft tissues: Postoperative inflammatory signal within the soft tissues about the foot with minimal amount of marrow edema involving the distal aspects of the residual fifth, fourth, and third metatarsal remnants. IMPRESSION: No acute findings in the right foot. Electronically signed by: Dusty Mackenzie MD 05/01/23 02:17 AM Code Status & VTE Plan Code Status Full code VTE Prophylaxis Plan VTE Prophylaxis will be ordered: Yes PG Care Time/CCT Total # of Minutes Spent Total Time Spent with Patient: Total time spent is greater than 50% in coordination of care (as documented) at patient's floor/unit and/or counseling patient: Coding Level of Care Code 62763 INT INP/OBS CARE 3/75MIN Diagnoses Syncope and collapse R55 Acute confusion R41.0 Osteomyelitis of right foot M86.9 Diabetic ulcer of right great toe E11.621; L97.519 PAD (peripheral artery disease) I73.9 Uncontrolled type 2 diabetes mellitus with hyperglycemia, with long-term current use of insulin E11.65; Z79.4 Chronic heart failure with preserved ejection fraction (HFpEF) I50.32 CKD (chronic kidney disease) N18.9 Frequent falls R29.6 Memory loss R41.3 Uncontrolled type 2 diabetes mellitus with diabetic neuropathy, with long-term current use of insulin E11.40; E11.65; Z79.4
[2023-04-30] MEDS: SODIUM CHLORIDE 0.9% 1,000 ML IV SCH (23:51)
[2023-05-01] MEDS ORDERED: VANCOMYCIN CONSULT ACTIVE PRN (01:19)
[2023-05-01] MEDS ORDERED: GLUCOSE 10 TAB/TUBE PO PRN (01:19)
[2023-05-01] MEDS ORDERED: GLUCAGON FOR INJ 1 MG VIAL SQ PRN (01:19)
[2023-05-01] MEDS ORDERED: CARBOHYDRATES FOR HYPOGLYCEMIA PO PRN (01:19)
[2023-05-01] MEDS ORDERED: ONDANSETRON INJ 2 MG/ML 2 ML VIAL IV PRN (01:19)
[2023-05-01] MEDS ORDERED: GLUCOSE 40% GEL 15 GM TUBE PO PRN (01:19)
[2023-05-01] MEDS ORDERED: DEXTROSE 50% 50 ML SYRINGE IV PRN (01:19)
[2023-05-01 01:56] LABS: Appearance Urine Clear (Clear); Bacteria Urine Automated Negative (Negative); Bilirubin Urine Negative (Negative); Blood Urine Negative (Negative); Cast Urine Automated 0 /lpf (0-5); Color Urine Yellow; Epithelial Cell Urine Auto 0-5 /lpf (0-5); Glucose Urine UA 3+ (Negative); Ketones Urine Negative (Negative); Leukocyte Esterase Urine Negative (Negative); Nitrite Urine Negative (Negative); Protein Urine 1+ (Negative); RBC Urine Automated 0-4 /hpf (0-4); Specific Gravity Urine 1.023 (1.000-1.030); Urobilinogen Urine Negative (Negative)
[2023-05-01] MEDS: LANTUS PER UNIT CHARGE SQ SCH (02:01)
[2023-05-01] MEDS: INSULIN ASPART PER UNIT CHARGE SC SCH (02:01)
[2023-05-01] MEDS: PIPERACILLIN/TAZOBACTAM 4.5 GM/100 ML BAG IV STA (02:08)
--- NOTE | 2023-05-01 02:18 | Magnetic Resonance Report ---
Exam(s): MRI RIGHT FOOT Without Contrast EXAM: MR Right Lower Extremity Without Intravenous Contrast, Foot CLINICAL HISTORY: Reason for exam: osteo, s/p amputation of toes. TECHNIQUE: Multiplanar magnetic resonance images of the right foot without intravenous contrast. COMPARISON: No relevant prior studies available. FINDINGS: LIGAMENTS: Medial collateral: Unremarkable. Lateral collateral: Unremarkable. Lisfranc: Unremarkable. TENDONS: Flexor: Unremarkable. Extensor: Unremarkable. Peroneal: Unremarkable. Tibialis anterior: Unremarkable. Tibialis posterior: Unremarkable. Muscles: Unremarkable. Fluid: Unremarkable. No joint effusion. Sinus tarsi: Unremarkable as visualized. Tarsal tunnel: Unremarkable. Plantar fascia: Unremarkable. Cartilage: Unremarkable. Bones/joints: Unremarkable. No acute fracture. Soft tissues: Postoperative inflammatory signal within the soft tissues about the foot with minimal amount of marrow edema involving the distal aspects of the residual fifth, fourth, and third metatarsal remnants. IMPRESSION: No acute findings in the right foot. Electronically signed by: Dusty Mackenzie MD 05/01/23 02:17 AM
[2023-05-01 03:03] LABS: Basophils # (auto) 0.05 K/uL (0.00-0.20); Basophils % (auto) 0.6 %; Eosinophils # (auto) 0.05 K/uL (0.00-0.50); Eosinophils % (auto) 0.6 %; Hematocrit (blood only) 31.5 % (42.0-52.0); Hemoglobin 10.1 g/dl (14.0-18.0); Immature Granulocytes # (auto) 0.02 K/uL (0.01-0.20); Immature Granulocytes % (auto) 0.2 %; Lymphocytes # (auto) 1.42 K/uL (1.20-3.40); Lymphocytes % (auto) 16.3 %; Mean Corpuscular Hemoglobin 27.5 pg (25.0-34.0); Mean Corpuscular Hgb Conc 32.1 g/dL (32.0-36.0); Mean Corpuscular Volume 85.8 fL (80.0-100.0); Mean Platelet Volume 10.5 fL (9.4-12.4); Monocytes # (auto) 0.58 K/uL (0.11-0.59); Monocytes % (auto) 6.7 %; Neutrophils # (auto) 6.58 K/uL (1.40-6.50); Neutrophils % (auto) 75.6 %; Platelet Count 252 K/uL (130-400); RDW Coefficient of Variation 14.8 % (11.5-14.5); RDW Standard Deviation 46.4 fL (36.4-46.3); Red Blood Count 3.67 M/uL (4.70-6.10)
[2023-05-01 03:27] LABS: Albumin Level 3.4 gm/dl (3.4-5.0); BUN Creatinine Ratio 27.9 (10-20); Calcium 8.9 mg/dl (8.6-10.3); Creatinine Clr Calc Pharmacy 95.5 ml/min; Est GFR (Non-African American) 94.9 ml/min; Phosphorus 3.2 mg/dl (2.5-4.9); Potassium 4.3 mmol/L (3.5-5.1)
[2023-05-01] MEDS ORDERED: Nursing to Pharmacy Communication SCH ×2 (03:45→05:30)
--- NOTE | 2023-05-01 04:03 | CT Scan Report ---
Exam(s): CT HEAD Without Contrast EXAM: CT Head Without Intravenous Contrast CLINICAL HISTORY: Reason for exam: Syncope and collapse, confusion. TECHNIQUE: Axial computed tomography images of the head/brain without intravenous contrast. Automated exposure control was utilized for the study. A dose lowering technique was utilized adhering to the principles of ALARA. COMPARISON:01/30/2022. FINDINGS: Brain: Severe ischemic microangiopathy. Mild cerebral volume loss. No hemorrhage. Ventricles: Unremarkable. No ventriculomegaly. Bones/joints: Unremarkable. No acute fracture. Soft tissues: Unremarkable. Sinuses: Unremarkable as visualized. No acute sinusitis. Mastoid air cells: Unremarkable as visualized. No mastoid effusion. Other findings: IMPRESSION: No acute findings in the head/brain. Electronically signed by: Dusty Mackenzie MD 05/01/23 04:02 AM
[2023-05-01] MEDS: VANCOMYCIN HCL 1,250 MG in SODIUM CHLORIDE 0.9% 250 ML IV SCH (05:40)
--- NOTE | 2023-05-01 06:53 | Hospitalist Progress Note ---
Date of Service May 01, 2023 Assessment & Plan (1) Syncope and collapse: (2) Acute confusion: (3) Osteomyelitis of right foot: (4) Diabetic ulcer of right great toe: (5) PAD (peripheral artery disease): (6) Uncontrolled type 2 diabetes mellitus with hyperglycemia, with long-term current use of insulin: (7) Chronic heart failure with preserved ejection fraction (HFpEF): (8) CKD (chronic kidney disease): (9) Frequent falls: (10) Memory loss: (11) Uncontrolled type 2 diabetes mellitus with diabetic neuropathy, with long- term current use of insulin: Plan Syncope and collapse/history of frequent falls/memory loss/acute confusion- CT scan of head ordered and pending Contributing factors including not limited to hyperglycemia with glucose 412, residual right foot infection, dehydration, progression of underlying previous memory loss Admit to monitored bed Uncontrolled diabetes mellitus with hyperglycemia- Glucose 412 on admission Regular insulin 8 units IV already ordered by the emergency department Unsure if patient is actually taking his glargine at home Reduce glargine from 30-20 in the subcu twice daily, with dose this evening after getting IV regular insulin Placed on Accu-Cheks with NovoLog SSI Status post 1 L normal saline in the ED Continue normal saline at 100 mL/h Hold metformin CBC with differential, chemistry profile and magnesium level in the a.m. MSSA osteomyelitis involving right foot/status post amputation on 03/06/2023- Place on vancomycin IV and Zosyn IV due to uncontrolled diabetes history Order MRI right foot and ankle Hypotension- Blood pressure initially 90/67, has improved to 131/78 with IV fluid rehydration as noted Hold furosemide, and lisinopril Reduce metoprolol to tartrate 100 mg p.o. twice daily to 50 mg p.o. twice daily with hold parameters Admission and Anticipated Discharge Date Admission Date: April 30, 2023 Results & Data Results & Data Vital Signs (Past 12 Hours) Vital Signs Temp Pulse Pulse Resp BP BP Pulse Ox 05/01/23 06:00 79 16 95 05/01/23 06:00 111/64 05/01/23 05:30 78 13 99 05/01/23 05:30 126/69 05/01/23 05:00 77 12 99 05/01/23 05:00 110/59 L 05/01/23 04:30 78 15 98 05/01/23 04:30 108/61 05/01/23 04:00 77 13 99 05/01/23 04:00 108/56 L 05/01/23 03:00 79 11 L 100 05/01/23 03:00 116/65 05/01/23 02:30 131/78 05/01/23 02:30 87 15 99 05/01/23 02:28 37.5 C 89 15 128/71 98 05/01/23 02:00 128/71 05/01/23 02:00 82 13 99 05/01/23 01:30 119/66 05/01/23 01:30 79 12 100 05/01/23 01:21 69 100 05/01/23 01:19 05/01/23 01:19 84 16 131/78 94 05/01/23 00:00 146/82 H 05/01/23 00:00 86 17 98 04/30/23 23:34 81 04/30/23 22:00 80 15 04/30/23 22:00 111/72 04/30/23 21:42 81 13 04/30/23 21:42 110/71 04/30/23 21:00 77 12 97 04/30/23 21:00 112/67 04/30/23 21:00 36.7 C 12 97 04/30/23 20:50 91 H 12 04/30/23 20:40 74 19 99 04/30/23 20:30 75 15 97 04/30/23 20:30 96/61 L 04/30/23 20:20 80 17 100 04/30/23 20:10 79 13 99 04/30/23 20:00 79 16 99 04/30/23 20:00 94/67 L 04/30/23 19:50 81 15 100 04/30/23 19:40 81 17 100 04/30/23 19:38 77 16 99 04/30/23 19:33 82 22 99 04/30/23 19:33 105/59 L 04/30/23 19:30 75 16 04/30/23 19:22 78 23 99 04/30/23 19:22 79 04/30/23 19:21 36.7 C 77 18 105/69 95 Pulse Ox O2 Del Method O2 Del Method 05/01/23 06:00 05/01/23 06:00 05/01/23 05:30 05/01/23 05:30 05/01/23 05:00 05/01/23 05:00 05/01/23 04:30 05/01/23 04:30 05/01/23 04:00 05/01/23 04:00 05/01/23 03:00 05/01/23 03:00 05/01/23 02:30 05/01/23 02:30 05/01/23 02:28 Room Air 05/01/23 02:00 05/01/23 02:00 05/01/23 01:30 05/01/23 01:30 05/01/23 01:21 05/01/23 01:19 94 Room Air 05/01/23 01:19 Room Air 05/01/23 00:00 05/01/23 00:00 04/30/23 23:34 04/30/23 22:00 04/30/23 22:00 04/30/23 21:42 04/30/23 21:42 04/30/23 21:00 04/30/23 21:00 04/30/23 21:00 Room Air 04/30/23 20:50 04/30/23 20:40 04/30/23 20:30 04/30/23 20:30 04/30/23 20:20 04/30/23 20:10 04/30/23 20:00 04/30/23 20:00 04/30/23 19:50 04/30/23 19:40 04/30/23 19:38 Room Air 04/30/23 19:33 04/30/23 19:33 04/30/23 19:30 04/30/23 19:22 04/30/23 19:22 04/30/23 19:21 Room Air
--- NOTE | 2023-05-01 07:02 | XRay Report ---
XR chest 1V not portable CLINICAL HISTORY: Sepsis. COMPARISON STUDY: Chest CT November 12, 2022. Chest radiograph March 05, 2023. FINDINGS: Lung volumes are normal. Lungs are clear. There is no pneumothorax or pleural effusion. Car diac size is normal. Mediastinal contours are normal. There is no evidence for pulmonary edema. IMPRESSION: No acute cardiopulmonary findings. ACT 112: Negative or not required by law. Electronically signed by: Davie Fitzgerald M.D. 05/01/2023 7:00 AM
[2023-05-01] MEDS: CHOLECALCIFEROL 25 MCG (1000 UNITS) TAB PO SCH (09:12)
[2023-05-01] MEDS: buPROPion XL 300 MG TABCR PO SCH (09:12)
[2023-05-01] MEDS: PANTOprazole 40 MG TAB PO SCH (09:12)
[2023-05-01] MEDS: MAGNESIUM CHLORIDE W/CALCIUM 64MG DELAYED REL TAB PO SCH (09:12)
[2023-05-01] MEDS: GABAPENTIN 600 MG TAB PO SCH (09:13)
[2023-05-01] MEDS: METOPROLOL TARTRATE 50 MG TAB PO SCH (09:13)
[2023-05-01] MEDS: CYANOCOBALAMIN (B-12) 500 MCG TABLET PO SCH (09:13)
[2023-05-01] MEDS: ASPIRIN 81 MG ECTAB PO SCH (09:13)
[2023-05-01] MEDS: PIPERACILLIN/TAZOBACTAM 4.5 GM in DEXTROSE 5% MINI-B 100 ML IV SCH (09:15)
[2023-05-01] MEDS: HEPARIN SOD 5,000 UNIT/0.5 ML VIAL SQ SCH (09:18)
--- NOTE | 2023-05-01 10:26 | Hospitalist Progress Note ---
Date of Service May 01, 2023 Assessment & Plan (1) Syncope and collapse: (2) Acute confusion: (3) Osteomyelitis of right foot: (4) Diabetic ulcer of right great toe: (5) PAD (peripheral artery disease): (6) Uncontrolled type 2 diabetes mellitus with hyperglycemia, with long-term current use of insulin: (7) Chronic heart failure with preserved ejection fraction (HFpEF): (8) CKD (chronic kidney disease): (9) Frequent falls: (10) Memory loss: (11) Uncontrolled type 2 diabetes mellitus with diabetic neuropathy, with long- term current use of insulin: Plan 1) Syncope and collapse/history of frequent falls/memory loss/acute confusion- CT scan of head: Brain: Severe ischemic microangiopathy. Mild cerebral volume loss. No acute findings in the head/brain. Contributing factors include: hyperglycemia with glucose 412, residual right foot infection, dehydration, progression of underlying previous memory loss Admit to monitored bed orthostatic hypotensive measurements: pending 2) Uncontrolled diabetes mellitus with hyperglycemia- Glucose 412 on admission Regular insulin 8 units IV already ordered by the emergency department Unsure if patient is actually taking his glargine at home Reduce glargine from 30-20 in the subcu twice daily, with dose this evening after getting IV regular insulin Placed on Accu-Cheks with NovoLog SSI Status post 1 L normal saline in the ED Continue normal saline at 100 mL/h Hold metformin CBC with differential, BMP, magnesium level on AM labs -K, 4.3 <-- 5.4 -Glu, 131 <-- 555 -Ca, Mg, P all normal 3) MSSA osteomyelitis involving right foot/status post amputation on 03/06/2023- Place on vancomycin IV and Zosyn IV due to uncontrolled diabetes history MRI right foot and ankle: no acute findings, only postoperative inflammatory signals with minimal amount of marrow edema 4) Hypotension- Blood pressure initially 90/67, has improved to 131/78 with IV fluid rehydration as noted Hold furosemide, and lisinopril Reduced metoprolol tartrate 100 mg, PO, BID to 50 mg, PO, BID with hold parameters Admission and Anticipated Discharge Date Admission Date: April 30, 2023 Supervising Physician Co-Signing Physician Notes Attending Physician Supervision Note: I independently interviewed and examined the patient and verified the lei history and physical, reviewed labs and image studies and agree with findings and care plan noted above. seen in ED. comfortable in bed. denied any complaints. doesn't recall the event except saying that he felt asleep after passing out as was told by his family. has had problem with sleep in past - stays up for 2-3 days and then can't sleeps in. vitals noted nad heent nc at mmm breathing unlabored no accessory muscles good effort skin no rashes no pallor or icterus neuro no focal deficits. Syncope - systolic BP lower, on metoprolol, long standing DM with hyperglycemia - check orthostatics, monitor on tele, recent echo reviewed. - get collateral history from family. - reassess in am. Subjective Primary Care Provider: Kaushal Johnson MD The patient is a 57-year-old male with a past medical history including PAD, right foot osteomyelitis status post toe amputation on 03/06/[address] Garcia, uncontrolled diabetes mellitus type 2 on insulin, HFpEF, V. tach, CKD, neuropathy, hypertension and hyperlipidemia. The patient was most recently admitted to [facility] from 03/05-03/15/2023 due to her right foot MSSA osteomyelitis, and underwent toe amputation. The patient presents to the emergency department today with an episode of syncope, and confusion following. Upon arrival to the emergency department he was noted to be confused, and hypotensive with blood pressure 94/67. The patient presents to the emergency department after a syncopal episode followed by confusion, with the patient not remembering where he was when he passed out, and how he was brought to the emergency department. The symptoms improved somewhat with initial emergency department interventions of normal saline 1 L bolus and vancomycin 1750 mg IV. Significant laboratories: Potassium 5.4, glucose 412, lactate 2.4. I saw the patient this morning and he continues to have no memory of the event, and also did not endorse ever having a similar event where he passed out before, whether it be syncopal or otherwise. Patient's longer term memory seems to be largely intact, as he remembers facts, names, etc about current events and topics of interest like football. Patient Review of Systems Constitutional: no fever, no chills, no sweats, no fatigue and no weakness Respiratory: no cough and no dyspnea Cardiovascular: + lightheadedness and + syncope (doesn't remember feeling this way); no chest pain and no palpitations Gastrointestinal: no nausea, no vomiting and no diarrhea/loose stools Genitourinary: no dysuria, no urinary frequency or no hematuria Neurologic: + tingling (baseline tingling in hands) Physical Exam Constitutional: WD/WN, vitals as above Eyes: + eyelid abnormality (ptosis of r. eye), PERRL, normal accommodation, EOM intact bilaterally and reactive pupils Respiratory: normal respiratory effort, lungs clear to auscultation Cardiovascular: RRR, no murmur, no edema Extremities: normal capillary refill and + calf tenderness (r. calf muscle) Gastrointestinal (Abdomen): normal bowel sounds, soft, nontender, no hepatosplenomegaly Neurologic: patellar DTR's 2+ bilat, sensation intact and PERRL, EOMI, accommodation nl, no face palsy, no dysarthria ptosis of the r. eyelid noted (patient states he has had this "as long as he can remember" Psychiatric: Orientation: oriented to person and oriented to place; + not oriented to time (said Mar, 2022) Results & Data Results & Data Vital Signs (Past 12 Hours) Vital Signs Temp Pulse Pulse Resp BP BP Pulse Ox 05/01/23 09:23 36.6 C 88 16 148/78 H 100 05/01/23 07:18 75 05/01/23 06:00 79 16 95 05/01/23 06:00 111/64 05/01/23 05:30 78 13 99 05/01/23 05:30 126/69 05/01/23 05:00 77 12 99 05/01/23 05:00 110/59 L 05/01/23 04:30 78 15 98 05/01/23 04:30 108/61 05/01/23 04:00 77 13 99 05/01/23 04:00 108/56 L 05/01/23 03:00 79 11 L 100 05/01/23 03:00 116/65 05/01/23 02:30 131/78 05/01/23 02:30 87 15 99 05/01/23 02:28 37.5 C 89 15 128/71 98 05/01/23 02:00 128/71 05/01/23 02:00 82 13 99 05/01/23 01:30 119/66 05/01/23 01:30 79 12 100 05/01/23 01:21 69 100 02/07/24 01:19 05/01/23 01:19 84 16 131/78 94 05/01/23 00:00 146/82 H 05/01/23 00:00 86 17 98 04/30/23 23:34 81 Pulse Ox O2 Del Method O2 Del Method 05/01/23 09:23 Room Air 05/01/23 07:18 05/01/23 06:00 05/01/23 06:00 05/01/23 05:30 05/01/23 05:30 05/01/23 05:00 05/01/23 05:00 05/01/23 04:30 05/01/23 04:30 05/01/23 04:00 05/01/23 04:00 05/01/23 03:00 05/01/23 03:00 05/01/23 02:30 05/01/23 02:30 05/01/23 02:28 Room Air 05/01/23 02:00 05/01/23 02:00 05/01/23 01:30 05/01/23 01:30 05/01/23 01:21 05/01/23 01:19 94 Room Air 05/01/23 01:19 Room Air 05/01/23 00:00 05/01/23 00:00 04/30/23 23:34
--- NOTE | 2023-05-01 10:48 | Pharmacy Report ---
Pharmacy PK ABX Note - Date of Service May 01, 2023 - Assessment and Plan Assessment * 57 year old M receiving VANCOMYCIN + ZOSYN for treatment of residual R foot osteomyelitis / diabetic foot infxn. * Patient presented to ED with syncope, hyperglycemia. No fever, no leukocyt osis. * Patient admitted to [facility] 02/2023 for diabetic foot infection. Required transmetatarsal amputation 03/06, IV abx while admitted and discharged on Keflex x 4 wks per Podiatry. * Pertinent microbiologic data includes: R foot cultures from 02/2023 grew MSSA and group G strep - both of which were pansensitive; "No acute findings" on MRI report of R foot. * Day # 1 of antimicrobial therapy. Plan Vancomycin * Loading dose: 1750 mg IV x 1 * Maintenance dose: 1250 mg IV every 12 hours * Regimen is predicted to achieve target AUC/AALIYAH of 400-600 mg/L.hr * Trough level ordered for: 28/24 AM prior to 3rd maint dose. Pharmacy will continue to follow and will adjust dose/frequency as necessary. Thank you. Pharmacy has transitioned to AUC monitoring for vancomycin. AUC/AALIYAH is the preferred PK/PD target and is associated with decreased risk of nephrotoxicity compared to traditional trough targets.
--- NOTE | 2023-05-01 11:30 | Electrocardiogram Report ---
Test Reason : Blood Pressure : / mmHG Vent. 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
--- NOTE | 2023-05-02 05:41 | Ultrasound Report ---
Exam(s): US VENOUS RIGHT LOWER EXTREMITY EXAM: US Duplex Right Lower Extremity Veins CLINICAL HISTORY: Reason for exam: right calf tenderness. TECHNIQUE: Real-time duplex ultrasound scan of the right lower extremity veins integrating B-mode two-dimensional vascular structure, Doppler spectral analysis, color flow Doppler imaging and compression. COMPARISON: No relevant prior studies available. FINDINGS: Deep veins: Unremarkable. No DVT in the visualized common femoral, femoral, proximal deep femoral or popliteal veins. The veins demonstrate normal color flow, are normally compressible, with normal phasic flow and/or augmentation response. Superficial veins: Unremarkable. No thrombus in the visualized great saphenous vein. Soft tissues: No acute findings. No popliteal cyst. IMPRESSION: Normal right lower extremity duplex venous ultrasound. Electronically signed by: Nicholas Roa MD 05/02/23 05:40 AM
[2023-05-02] MEDS: VANCOMYCIN LEVEL ONE (06:28)
--- NOTE | 2023-05-02 07:02 | Discharge Summary ---
Date of Service May 02, 2023 Admission HPI Per Admitting Provider The patient is a 57-year-old male with a past medical history including PAD, right foot osteomyelitis status post toe amputation on 03/06/[address] Garcia, uncontrolled diabetes mellitus type 2 on insulin, HFpEF, V. tach, CKD, neuropathy, hypertension and hyperlipidemia. The patient was most recently admitted to [facility] from 03/05-03/15/2023 due to her right foot MSSA osteomyelitis, and underwent toe amputation. The patient presents to the emergency department today with an episode of syncope, and confusion following. Upon arrival to the emergency department he was noted to be confused, and hypotensive with blood pressure 94/67. The symptoms improved somewhat with initial emergency department interventions of normal saline 1 L bolus and vancomycin 1750 mg IV. Significant laboratories: Potassium 5.4, glucose 412, lactate 2.4. Admission Exam Per Admitting Provider Physical Exam: The patient is awake, still intermittently confused, normocephalic and atraumatic, lying in bed and in no acute distress. HEENT--PERRL, EOMI, mucous membranes and oropharynx dry. Neck--supple. No JVD. No bruits. Thyroid normal, trachea midline, no adenopathy. Heart--normal S1 and S2. No murmurs, rubs or gallops. Lungs--clear bilaterally, no respiratory distress, no accessory muscle use. Abdomen--normal bowel sounds and soft. Nontender. Nondistended, no hernias or masses, no organomegaly. Extremities--no cyanosis or clubbing. No edema. There are good distal pulses b/l. Dermatologic--left lower extremity normal. Right lower extremity with well- healed approximated incision. Eschar with mild surrounding edema at heel base, medial malleolar abrasion with mild erythema Neurologic--cranial nerves II through XII grossly intact. Rheumatologic--limited exam due to left ankle and foot wrapping and infection Psychiatric--intermittently confused. Principal Diagnosis syncope Discharge Exam Constitutional WD/WN, vitals as above Eyes + eyelid abnormality (ptosis of r. eye), PERRL, normal accommodation, EOM intact bilaterally and reactive pupils Respiratory normal respiratory effort, lungs clear to auscultation Cardiovascular RRR, no murmur, no edema Extremities: normal capillary refill and + calf tenderness (r. calf muscle) Gastrointestinal (Abdomen) normal bowel sounds, soft, nontender, no hepatosplenomegaly Neurologic patellar DTR's 2+ bilat, sensation intact and PERRL, EOMI, accommodation nl, no face palsy, no dysarthria Psychiatric A+Ox3, euthymic affect Orientation: oriented to person and oriented to place; + not oriented to time (said Mar, 2022) Discharge Data Allergies Allergy/AdvReac Type Severity Reaction Status Date / Time levofloxacin AdvReac Intermediate GI SYMPTOMS Verified 02/01/23 13:37 pneumococcal vaccine AdvReac Intermediate GI Verified 02/01/23 13:37 SYMPTOMS-OK IF MULTIPLE VACCINES GIVEN SEPARATELY tetanus toxoid, adsorbed AdvReac Intermediate TETANUS/DIPTHERIA/PERTUSSIS-GI Verified 02/01/23 13:37 UPSTE/BODY ACHES Consultations 04/30/23 23:05 ED Decision to Admit Stat Ordered Studies 04/30/23 20:10 US arterial duplex LE LT Stat 05/01/23 00:29 MRI Foot [MR foot RT w/o con] Stat 05/01/23 03:05 CT head/brain wo con Stat 05/01/23 17:01 US venous doppler LE RT Stat Hospital Course (1) Syncope and collapse: (2) Acute confusion: (3) Osteomyelitis of right foot: (4) Diabetic ulcer of right great toe: (5) PAD (peripheral artery disease): (6) Uncontrolled type 2 diabetes mellitus with hyperglycemia, with long-term current use of insulin: (7) Chronic heart failure with preserved ejection fraction (HFpEF): (8) CKD (chronic kidney disease): (9) Frequent falls: (10) Memory loss: (11) Uncontrolled type 2 diabetes mellitus with diabetic neuropathy, with long- term current use of insulin: Plan Patient seems to be more alert and aware this morning and is able to give names of last four Presidents, initiating conversations about politics and seems to remember more about his own interests. Pt says he's been religiously taking metformin for last 6 mos. 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 He has no problems w/ insulin, no needle phobia. Doesn't think he misses his insulin doses. Pt did endorse having one other episode where he passes out before to me this morning. That time pt felt like he saw flash of light before previous episode. When questioned, pt thinks he had last diabetic retinal exam 3 mos ago. eye doctor is Dr bynum. Pt feels like when he stands up feels weak for about 30 sec before "getting his feet back", which would be consistent with orthostatic hypotension. Pt blames [facility] for sepsis that caused his osteomyelitis. no F/C, no fatigue, body aches at baseline Resp: no cough, SOB, or chest noam Card: no cp or palps GI: no N/V/D/AP Neuro: no dizziness, residual tingling in hands 1) Syncope and collapse/history of frequent falls/memory loss/acute confusion- CT scan of head: Brain: Severe ischemic microangiopathy. Mild cerebral volume loss. No acute findings in the head/brain. Contributing factors include: hyperglycemia with glucose 412, residual right foot infection, dehydration, progression of underlying previous memory loss Admit to monitored bed orthostatic hypotensive measurements: sitting 108/63, standing 96/49 --> meets criteria w/ > 10 mm Hg change in diastolic pressure repeat orthostatic measurements: sitting 139/75, standing 96/67 --> meets criteria w/ > 20 mm Hg change in systolic pressure and > 10 mm Hg change in diastolic pressure 2) Uncontrolled diabetes mellitus with hyperglycemia- Glucose 412 on admission Regular insulin 8 units IV already ordered by the emergency department Unsure if patient is actually taking his glargine at home Reduce glargine from 30-20 in the subcu twice daily, with dose this evening after getting IV regular insulin Placed on Accu-Cheks with NovoLog SSI Status post 1 L normal saline in the ED Continue normal saline at 100 mL/h Hold metformin CBC with differential, BMP, magnesium level on AM labs -K, 4.3 <-- 5.4 -Glu, 131 <-- 555 -Ca, Mg, P all normal 3) MSSA osteomyelitis involving right foot/status post amputation on 03/06/2023- Place on vancomycin IV and Zosyn IV due to uncontrolled diabetes history MRI right foot and ankle: no acute findings, only postoperative inflammatory signals with minimal amount of marrow edema 4) Hypotension- Blood pressure initially 90/67, has improved to 131/78 with IV fluid rehydration as noted Hold furosemide, and lisinopril Reduced metoprolol tartrate 100 mg, PO, BID to 50 mg, PO, BID with hold parameters Discharge Plan Discharge Items Reason For Visit: SYNCOPE, CONFUSION, HYPEERGLYCEMIA IN DM/LEFT FOOT Follow-up/Referrals: Kaushal Johnson MD [Primary Care Provider] - Medications and DC Order Prescriptions: No Action aspirin [Adult Aspirin Regimen] 81 mg tablet,delayed release (DR/EC) 81 mg PO QAM cholecalciferol (vitamin D3) 25 mcg (1,000 unit) capsule 25 mcg PO QAM (DME) Dexcom G6 Sensor Device See Rx Instructions .Route Rx Instructions: As directed (DME) pen needle, diabetic [BD Ultra-Fine Fanny Pen Needle] 32 gauge x 5/32" needle See Rx Instructions .Route Rx Instructions: As directed (DME) blood sugar diagnostic Strip See Rx Instructions .Route Rx Instructions: As directed insulin aspart U-100 [Novolog U-100 Insulin aspart] 100 unit/mL solution See Rx Instructions SC ACHS Rx Instructions: per sliding scale Subcutaneously before meals and at bedtime; Take 1 unit of insulin for ever 4 carbohydrates consumed. Anticipate need for 25 units needed for each meal with adjustments up/down based on carbohydrate content. bupropion HCl 300 mg tablet extended release 24 hr 300 mg PO QAM lisinopril 2.5 mg tablet 2.5 mg PO DAILY gabapentin 600 mg Tablet 600 mg PO AMHS pantoprazole 40 mg tablet,delayed release (DR/EC) 40 mg PO QAM metformin 1,000 mg tablet 1,000 mg PO AMHS potassium chloride 20 mEq Tablet,Er Particles/Crystals 40 meq PO QAM Qty: 60 0RF furosemide 20 mg tablet 20 mg PO QAM Mag 64 64 mg Tablet,Delayed Release (Dr/Ec) 64 mg PO QAM Qty: 30 1RF (DME) BiPap Machine Misc Rx Instructions: BiPAP 09/02, mask fit patient comfort, heated humidification, compliance onur nload capabilities, [facility] aero care, please use 's contact phone number; cephalexin 500 mg capsule 500 mg PO Q6H Qty: 120 0RF acetaminophen 325 mg Tablet 650 mg PO Q6 MDD 3g PRN (Reason: pain 1-10) aspirin 325 mg Tablet 650 mg PO Q6 MDD 3g PRN (Reason: temp>100) Rx Instructions: while awake rosuvastatin 40 mg Tablet 40 mg PO HS metoprolol tartrate 100 mg tablet 100 mg PO AMHS insulin glargine [Basaglar KwikPen U-100 Insulin] 100 unit/mL (3 mL) insulin pen 22 unit SUBCUT HS insulin glargine [Basaglar KwikPen U-100 Insulin] 100 unit/mL (3 mL) insulin pen 30 unit SUBCUT QAM Admission Data Admit Date/Time: 04/30/23 23:44 Attending Provider: Makenna Bravo Admit Provider: Quentin Gray Primary Care Provider: Kaushal Johnson Other Providers: Quentin Gray; [facility] Supervising Physician Co-Signing Physician Notes Attending Physician Supervision Note: I independently interviewed and examined the patient and verified the lei history and physical, reviewed labs and image studies and agree with findings and care plan noted above. alert this am. denies any dizziness/chest pain/shortness of breath. vitals noted nad heent nc at mmm breathing unlabored no accessory muscles good effort skin no rashes no pallor or icterus neuro no focal deficits. Syncope with hypotension on admission due to ?dka in setting of Type 2DM Metabolic encephalopathy Repleted with IVF. Improved blood sugars while hospitalized. Discussed medication compliance and more support outpatient with diabetes care. Mentation clear on day of discharge.
[2023-05-02 07:04] LABS: Basophils # (auto) 0.06 K/uL (0.00-0.20); Basophils % (auto) 0.8 %; Eosinophils # (auto) 0.27 K/uL (0.00-0.50); Eosinophils % (auto) 3.4 %; Hematocrit (blood only) 29.9 % (42.0-52.0); Hemoglobin 9.7 g/dl (14.0-18.0); Immature Granulocytes # (auto) 0.02 K/uL (0.01-0.20); Immature Granulocytes % (auto) 0.3 %; Lymphocytes % (auto) 21.6 %; Mean Corpuscular Hemoglobin 27.6 pg (25.0-34.0); Mean Corpuscular Hgb Conc 32.4 g/dL (32.0-36.0); Mean Corpuscular Volume 84.9 fL (80.0-100.0); Mean Platelet Volume 10.7 fL (9.4-12.4); Monocytes # (auto) 0.68 K/uL (0.11-0.59); Monocytes % (auto) 8.6 %; Neutrophils # (auto) 5.14 K/uL (1.40-6.50); Neutrophils % (auto) 65.3 %; Platelet Count 238 K/uL (130-400); RDW Standard Deviation 46.7 fL (36.4-46.3); Red Blood Count 3.52 M/uL (4.70-6.10); White Blood Count 7.87 K/ul (4.8-10.8)
[2023-05-02 07:11] LABS: Albumin Level 3.1 gm/dl (3.4-5.0); BUN Creatinine Ratio 17.8 (10-20); Calcium 8.4 mg/dl (8.6-10.3); Creatinine Clr Calc Pharmacy 91.3 ml/min; Est GFR (Non-African American) 93.2 ml/min; Magnesium 1.8 mg/dl (1.7-2.4); Phosphorus 3.4 mg/dl (2.5-4.9); Potassium 3.8 mmol/L (3.5-5.1)
[2023-05-02] MEDS: VANCOMYCIN HCL 1,000 MG in SODIUM CHLORIDE 0.9% 250 ML IV SCH (21:01)
--- NOTE | 2023-05-02 21:40 | Hospitalist Progress Note ---
Date of Service May 02, 2023 Assessment & Plan (1) Syncope and collapse: (2) Acute confusion: (3) Osteomyelitis of right foot: (4) Diabetic ulcer of right great toe: (5) PAD (peripheral artery disease): (6) Uncontrolled type 2 diabetes mellitus with hyperglycemia, with long-term current use of insulin: (7) Chronic heart failure with preserved ejection fraction (HFpEF): (8) CKD (chronic kidney disease): (9) Frequent falls: (10) Memory loss: (11) Uncontrolled type 2 diabetes mellitus with diabetic neuropathy, with long- term current use of insulin: Plan Patient seems to be more alert and aware this morning and is able to give names of last four Presidents, initiating conversations about politics and seems to remember more about his own interests. Pt says he's been religiously taking metformin for last 6 mos. but worried about roasterman side effect of cancer. He has no problems w/ insulin, no needle phobia. Doesn't think he misses his insulin doses. Pt did endorse having one other episode where he passes out before to me this morning. That time pt felt like he saw flash of light before previous episode. When questioned, pt thinks he had last diabetic retinal exam 3 mos ago. eye doctor is Dr bynum. Pt feels like when he stands up feels weak for about 30 sec before "getting his feet back", which would be consistent with orthostatic hypotension. Pt blames [facility] for sepsis that caused his osteomyelitis. no F/C, no fatigue, body aches at baseline Resp: no cough, SOB, or chest noam Card: no cp or palps GI: no N/V/D/AP Neuro: no dizziness, residual tingling in hands 1) Syncope and collapse/history of frequent falls/memory loss/acute confusion- CT scan of head: Brain: Severe ischemic microangiopathy. Mild cerebral volume loss. No acute findings in the head/brain. Contributing factors include: hyperglycemia with glucose 412, residual right foot infection, dehydration, progression of underlying previous memory loss Admit to monitored bed orthostatic hypotensive measurements: sitting 108/63, standing 96/49 --> meets criteria w/ > 10 mm Hg change in diastolic pressure repeat orthostatic measurements: sitting 139/75, standing 96/67 --> meets criteria w/ > 20 mm Hg change in systolic pressure and > 10 mm Hg change in diastolic pressure - patient's orthostatic hypotension, in the context of uncontrolled T2DM, would be consistent with neurogenic etiology 2) Uncontrolled diabetes mellitus with hyperglycemia- Glucose 412 on admission Regular insulin 8 units IV already ordered by the emergency department Unsure if patient is actually taking his glargine at home Reduce glargine from 30-20 in the subcu twice daily, with dose this evening after getting IV regular insulin Placed on Accu-Cheks with NovoLog SSI Continue normal saline at 100 mL/h Hold metformin CBC with differential, BMP, magnesium level on AM labs -K, 4.3 <-- 5.4 -Glu, 131 <-- 555 -Ca, Mg, P all normal 3) MSSA osteomyelitis involving right foot/status post amputation on 03/06/2023- Discontinued vancomycin IV and Zosyn IV MRI right foot and ankle: no acute findings, only postoperative inflammatory signals with minimal amount of marrow edema 4) Hypotension- Blood pressure initially 90/67, has improved to 131/78 with IV fluid rehydration as noted Hold furosemide, and lisinopril Reduced metoprolol tartrate 100 mg, PO, BID to 50 mg, PO, BID with hold parameters Admission and Anticipated Discharge Date Admission Date: April 30, 2023 Supervising Physician Co-Signing Physician Notes Attending Physician Supervision Note: I independently interviewed and examined the patient and verified the lei history and physical, reviewed labs and image studies and agree with findings and care plan noted above. no new concerns. was remembering that he was told he passed out in chair and family couldn't wake him up. vitals noted nad heent nc at mmm breathing unlabored no accessory muscles good effort skin no rashes no pallor or icterus neuro no focal deficits. Syncope - sec to ? DKA d/t uncontrolled type DM - Also with underlying orthostatic hypotension - symptomatically better with IVF. Blood sugars better controlled. - follow in am. Uncontrolled DM - already has CGM. to contact outpatient care management team. MSSA osteomyelitis involving right foot/status post amputation on 03/06/2023- - MRI right foot and ankle: no acute findings, only postoperative inflammatory signals with minimal amount of marrow edema - was given IV abx on admit. with no sign of new infection - abx d/c. has finished 4 wk course of abx after surgery. Subjective Primary Care Provider: Kasuhal Johnson MD The patient is a 57-year-old male with a past medical history including PAD, right foot osteomyelitis status post toe amputation on 03/06/[address] Garcia, uncontrolled diabetes mellitus type 2 on insulin, HFpEF, V. tach, CKD, neuropathy, hypertension and hyperlipidemia. The patient was most recently admitted to [facility] from 03/05-03/15/2023 due to her right foot MSSA osteomyelitis, and underwent toe amputation. The patient presents to the emergency department today with an episode of syncope, and confusion following. Upon arrival to the emergency department he was noted to be confused, and hypotensive with blood pressure 94/67. The patient presents to the emergency department after a syncopal episode followed by confusion, with the patient not remembering where he was when he passed out, and how he was brought to the emergency department. The symptoms improved somewhat with initial emergency department interventions of normal saline 1 L bolus and vancomycin 1750 mg IV. Significant laboratories: Potassium 5.4, glucose 412, lactate 2.4. I saw the patient this morning and he continues to have no memory of the event, and also did not endorse ever having a similar event where he passed out before, whether it be syncopal or otherwise. Patient's longer term memory seems to be largely intact, as he remembers facts, names, etc about current events and topics of interest like football. Patient Review of Systems Constitutional: no fever, no chills, no sweats, no fatigue and no weakness Respiratory: no cough and no dyspnea Cardiovascular: + lightheadedness and + syncope (doesn't remember feeling this way); no chest pain and no palpitations Gastrointestinal: no nausea, no vomiting and no diarrhea/loose stools Genitourinary: no dysuria, no urinary frequency or no hematuria Neurologic: + tingling (baseline tingling in hands) Physical Exam Constitutional: WD/WN, vitals as above Eyes: + eyelid abnormality (ptosis of r. eye), PERRL, normal accommodation, EOM intact bilaterally and reactive pupils Respiratory: normal respiratory effort, lungs clear to auscultation Cardiovascular: RRR, no murmur, no edema Extremities: normal capillary refill and + calf tenderness (r. calf muscle) Gastrointestinal (Abdomen): normal bowel sounds, soft, nontender, no hepatosplenomegaly Neurologic: patellar DTR's 2+ bilat, sensation intact and PERRL, EOMI, accommodation nl, no face palsy, no dysarthria Psychiatric: A+Ox3, euthymic affect Orientation: oriented to person and oriented to place; + not oriented to time (said Mar, 2022) Results & Data Results & Data Vital Signs (Past 12 Hours) Vital Signs Temp Pulse Pulse Resp BP Pulse Ox O2 Del Method 05/02/23 19:30 36.7 C 110 H 18 107/66 97 Room Air 05/02/23 15:41 37.1 C 100 H 17 142/70 H Room Air 05/02/23 15:10 106 H 05/02/23 11:23 Free Flow/Blow-by 05/02/23 11:17 36.6 C 92 H 17 128/76 93 Room Air O2 Flow Rate 05/02/23 19:30 05/02/23 15:41 05/02/23 15:10 05/02/23 11:23 7 05/02/23 11:17
[2023-05-03 06:48] LABS: Basophils # (auto) 0.06 K/uL (0.00-0.20); Basophils % (auto) 0.9 %; Eosinophils # (auto) 0.43 K/uL (0.00-0.50); Eosinophils % (auto) 6.2 %; Hematocrit (blood only) 31.5 % (42.0-52.0); Hemoglobin 10.3 g/dl (14.0-18.0); Immature Granulocytes # (auto) 0.02 K/uL (0.01-0.20); Immature Granulocytes % (auto) 0.3 %; Lymphocytes % (auto) 25.9 %; Mean Corpuscular Hgb Conc 32.7 g/dL (32.0-36.0); Mean Corpuscular Volume 85.6 fL (80.0-100.0); Mean Platelet Volume 10.7 fL (9.4-12.4); Monocytes % (auto) 10.1 %; Neutrophils # (auto) 3.95 K/uL (1.40-6.50); Neutrophils % (auto) 56.6 %; Platelet Count 265 K/uL (130-400); RDW Coefficient of Variation 15.1 % (11.5-14.5); RDW Standard Deviation 47.3 fL (36.4-46.3); Red Blood Count 3.68 M/uL (4.70-6.10); White Blood Count 6.96 K/ul (4.8-10.8)
[2023-05-03 07:02] LABS: Albumin Level 3.2 gm/dl (3.4-5.0); BUN Creatinine Ratio 14.9 (10-20); Calcium 8.5 mg/dl (8.6-10.3); Creatinine Clr Calc Pharmacy 87.4 ml/min; Est GFR (African American) 102.4 ml/min; Est GFR (Non-African American) 88.4 ml/min; Magnesium 1.9 mg/dl (1.7-2.4); Phosphorus 3.7 mg/dl (2.5-4.9); Potassium 3.9 mmol/L (3.5-5.1)
--- NOTE | 2023-05-03 07:51 | Discharge Summary ---
Date of Service May 03, 2023 Admission HPI Per Admitting Provider Chief Complaint: The patient presents to the emergency department after a syncopal episode followed by confusion, with the patient not remembering where he was when he passed out, and how he was brought to the emergency department. Primary Care Provider: Kaushal Johnson MD The patient is a 57-year-old male with a past medical history including PAD, right foot osteomyelitis status post toe amputation on 03/06/[address] Garcia, uncontrolled diabetes mellitus type 2 on insulin, HFpEF, V. tach, CKD, neuropathy, hypertension and hyperlipidemia. The patient was most recently admitted to [facility] from 03/05-03/15/2023 due to her right foot MSSA osteomyelitis, and underwent toe amputation. The patient presents to the emergency department today with an episode of syncope, and confusion following. Upon arrival to the emergency department he was noted to be confused, and hypotensive with blood pressure 94/67. The symptoms improved somewhat with initial emergency department interventions of normal saline 1 L bolus and vancomycin 1750 mg IV. Significant laboratories: Potassium 5.4, glucose 412, lactate 2.4. Admission Exam Per Admitting Provider Physical Exam: The patient is awake, still intermittently confused, normocephalic and atraumatic, lying in bed and in no acute distress. HEENT--PERRL, EOMI, mucous membranes and oropharynx dry. Neck--supple. No JVD. No bruits. Thyroid normal, trachea midline, no adenopathy. Heart--normal S1 and S2. No murmurs, rubs or gallops. Lungs--clear bilaterally, no respiratory distress, no accessory muscle use. Abdomen--normal bowel sounds and soft. Nontender. Nondistended, no hernias or masses, no organomegaly. Extremities--no cyanosis or clubbing. No edema. There are good distal pulses b/l. Dermatologic--left lower extremity normal. Right lower extremity with well- healed approximated incision. Eschar with mild surrounding edema at heel base, medial malleolar abrasion with mild erythema Neurologic--cranial nerves II through XII grossly intact. Rheumatologic--limited exam due to left ankle and foot wrapping and infection Psychiatric--intermittently confused. Principal Diagnosis syncope, orthostatic hypotension Discharge Exam Constitutional WD/WN, vitals as above Eyes + eyelid abnormality (ptosis of r. eye), PERRL, normal accommodation and EOM intact bilaterally Respiratory normal respiratory effort, lungs clear to auscultation Cardiovascular RRR, no murmur, no edema Extremities: normal capillary refill and + calf tenderness (r. calf muscle) Gastrointestinal (Abdomen) normal bowel sounds, soft, nontender, no hepatosplenomegaly Neurologic CN's II-XI intact bilaterally, moves all extremities and awake Psychiatric A+Ox3, euthymic affect Discharge Data Allergies Allergy/AdvReac Type Severity Reaction Status Date / Time levofloxacin AdvReac Intermediate GI SYMPTOMS Verified 02/01/23 13:37 pneumococcal vaccine AdvReac Intermediate GI Verified 02/01/23 13:37 SYMPTOMS-OK IF MULTIPLE VACCINES GIVEN SEPARATELY tetanus toxoid, adsorbed AdvReac Intermediate TETANUS/DIPTHERIA/PERTUSSIS-GI Verified 02/01/23 13:37 UPSTE/BODY ACHES Consultations 04/30/23 23:05 ED Decision to Admit Stat Ordered Studies 04/30/23 20:10 US arterial duplex LE LT Stat 05/01/23 00:29 MRI Foot [MR foot RT w/o con] Stat 05/01/23 03:05 CT head/brain wo con Stat 05/01/23 17:01 US venous doppler LE RT Stat Hospital Course (1) Syncope and collapse: (2) Acute confusion: (3) Osteomyelitis of right foot: (4) Diabetic ulcer of right great toe: (5) PAD (peripheral artery disease): (6) Uncontrolled type 2 diabetes mellitus with hyperglycemia, with long-term current use of insulin: (7) Chronic heart failure with preserved ejection fraction (HFpEF): (8) CKD (chronic kidney disease): (9) Frequent falls: (10) Memory loss: (11) Uncontrolled type 2 diabetes mellitus with diabetic neuropathy, with long- term current use of insulin: (12) Orthostatic hypotension: Plan 1) Syncope and collapse/history of frequent falls/memory loss/acute confusion- CT scan of head: Brain: Severe ischemic microangiopathy. Mild cerebral volume loss. No acute findings in the head/brain. Contributing factors include: hyperglycemia with glucose 412, residual right foot infection, dehydration, progression of underlying previous memory loss Admit to monitored bed orthostatic hypotensive measurements: sitting 108/63, standing 96/49 --> meets criteria w/ > 10 mm Hg change in diastolic pressure repeat orthostatic measurements: sitting 139/75, standing 96/67 --> meets criteria w/ > 20 mm Hg change in systolic pressure and > 10 mm Hg change in diastolic pressure - patient's orthostatic hypotension, in the context of uncontrolled T2DM, would be consistent with neurogenic etiology 2) Uncontrolled diabetes mellitus with hyperglycemia- Glucose 412 on admission Regular insulin 8 units IV already ordered by the emergency department Unsure if patient is actually taking his glargine at home Reduce glargine from 30-20 in the subcu twice daily, with dose this evening after getting IV regular insulin Placed on Accu-Cheks with NovoLog SSI Continue normal saline at 100 mL/h Hold metformin CBC with differential, BMP, magnesium level on AM labs -K, 4.3 <-- 5.4 -Glu, 131 <-- 555 -Ca, Mg, P all normal 3) MSSA osteomyelitis involving right foot/status post amputation on 03/06/2023- Discontinued vancomycin IV and Zosyn IV MRI right foot and ankle: no acute findings, only postoperative inflammatory signals with minimal amount of marrow edema 4) Hypotension- Blood pressure initially 90/67, has improved to 131/78 with IV fluid rehydration as noted Hold furosemide, and lisinopril Reduced metoprolol tartrate 100 mg, PO, BID to 50 mg, PO, BID with hold parameters Total Time Total Time Spent Total Time Spent (In Minutes): see attending attestation Discharge Plan Discharge Items Patient Disposition: Home - Self-Care Reason For Visit: SYNCOPE, CONFUSION, HYPEERGLYCEMIA IN DM/LEFT FOOT Discharge Diagnosis: syncope, orthostatic hypotension, uncontrolled type II diabetes Activity: Resume your previous activity Activity Comment: increase daily activity in gradual way to improve conditioning Non-emergency contact: Primary Care Provider Call non-emergency contact if: you have any medication questions and your symptoms worsen Follow-up/Referrals: Kaushal Johnson MD [Primary Care Provider] - Diet: Carb Consistent or DM2 and Heart Healthy Addtl Attending Provider Instructions: You were admitted to the hospital for [_]. You were treated with [_]. A discharge summary will be sent to your primary care physician to ensure continuity of care. Please bring this discharge summary with you to your next office appointment so that your provider can review it at that time. Follow-up appointments: [ Make a follow-up appointment with your PCP within the next week. It is very important that you follow up with them shortly after discharge from the hospital.] [ We have requested a follow-up appointment with your primary care physician within one week of discharge. Please call their office if you do not hear from them.] [ You have an appointment with _ on _ at _. If you are unable to make this appointment, or have any other questions, their office can be reached at _.] Keep all your follow-up appointments as already scheduled. If you cannot make an appointment, notify your provider. Medications: Your medication list has been reviewed and reconciled upon discharge to ensure accuracy and continuity of care. An updated list of all your medications is included with your hospital discharge paperwork. Please review this list closely, and make note of any changes. We sent a new medication called [med name] to your pharmacy. Take [med name] ([_]mg) [one tablet] [daily] [for _ days]. We sent a new medication called [med name] to your pharmacy. Take [med name] ([_]mg) [one tablet] [daily] [for _ days]. Take your medications as instructed; do not skip a dose of your medicines. Make sure all of your doctors know every medicine you are taking (including orju-gjl-[id number] medicines, vitamins, and supplements). Call your primary care provider before taking any new medicines (including kkjq-yra-ecesfam medicines, vitamins, and supplements), because some of these may interact with your current medications, or may make your symptoms worse. Tell your primary care provider if you cannot afford your medications. CONTACT YOUR PRIMARY CARE PROVIDER if you experience any of the following: [_] [_] Difficulty following your treatment plan, or difficulty taking medications CALL 911 OR GO TO THE EMERGENCY DEPARTMENT if you experience any of the following: Sudden, severe abdominal pain or nausea/vomiting Severe chest pain, or chest pain that radiates (moves) to your jaw or arm Sudden, severe shortness of breath or difficulty breathing Thank you for allowing us to participate in your care Stand-Alone Forms: My [facility] [place], Smoking Cessation Medications and DC Order Prescriptions: No Action aspirin [Adult Aspirin Regimen] 81 mg tablet,delayed release (DR/EC) 81 mg PO QAM cholecalciferol (vitamin D3) 25 mcg (1,000 unit) capsule 25 mcg PO QAM (DME) Dexcom G6 Sensor Device See Rx Instructions .Route Rx Instructions: As directed (DME) pen needle, diabetic [BD Ultra-Fine Fanny Pen Needle] 32 gauge x 5/32" needle See Rx Instructions .Route Rx Instructions: As directed (DME) blood sugar diagnostic Strip See Rx Instructions .Route Rx Instructions: As directed insulin aspart U-100 [Novolog U-100 Insulin aspart] 100 unit/mL solution See Rx Instructions SC ACHS Rx Instructions: per sliding scale Subcutaneously before meals and at bedtime; Take 1 unit of insulin for ever 4 carbohydrates consumed. Anticipate need for 25 units needed for each meal with adjustments up/down based on carbohydrate content. bupropion HCl 300 mg tablet extended release 24 hr 300 mg PO QAM lisinopril 2.5 mg tablet 2.5 mg PO DAILY gabapentin 600 mg Tablet 600 mg PO AMHS pantoprazole 40 mg tablet,delayed release (DR/EC) 40 mg PO QAM metformin 1,000 mg tablet 1,000 mg PO AMHS potassium chloride 20 mEq Tablet,Er Particles/Crystals 40 meq PO QAM Qty: 60 0RF furosemide 20 mg tablet 20 mg PO QAM Mag 64 64 mg Tablet,Delayed Release (Dr/Ec) 64 mg PO QAM Qty: 30 1RF (DME) BiPap Machine Misc Rx Instructions: BiPAP 09/02, mask fit patient comfort, heated humidification, compliance download capabilities, [facility] care, please use 's contact phone number; cephalexin 500 mg capsule 500 mg PO Q6H Qty: 120 0RF acetaminophen 325 mg Tablet 650 mg PO Q6 MDD 3g PRN (Reason: pain 1-10) aspirin 325 mg Tablet 650 mg PO Q6 MDD 3g PRN (Reason: temp>100) Rx Instructions: while awake rosuvastatin 40 mg Tablet 40 mg PO HS metoprolol tartrate 100 mg tablet 100 mg PO AMHS insulin glargine [Basaglar KwikPen U-100 Insulin] 100 unit/mL (3 mL) insulin pen 22 unit SUBCUT HS insulin glargine [Basaglar KwikPen U-100 Insulin] 100 unit/mL (3 mL) insulin pen 30 unit SUBCUT QAM Admission Data Admit Date/Time: 04/30/23 23:44 Attending Provider: Makenna Bravo Admit Provider: Quentin Gray Primary Care Provider: Kaushal Johnson Other Providers: Quentin Gray; [facility]
[2023-05-03] MEDS ORDERED: cephALEXin 500 MG CAP PO SCH (17:00)
--- NOTE | 2023-05-03 19:31 | Hospitalist Progress Note ---
Date of Service May 03, 2023 Assessment & Plan (1) Syncope and collapse: (2) Acute confusion: (3) Osteomyelitis of right foot: (4) Diabetic ulcer of right great toe: (5) PAD (peripheral artery disease): (6) Uncontrolled type 2 diabetes mellitus with hyperglycemia, with long-term current use of insulin: (7) Chronic heart failure with preserved ejection fraction (HFpEF): (8) CKD (chronic kidney disease): (9) Frequent falls: (10) Memory loss: (11) Uncontrolled type 2 diabetes mellitus with diabetic neuropathy, with long- term current use of insulin: (12) Orthostatic hypotension: Plan 1) Syncope and collapse/history of frequent falls/memory loss/acute confusion- CT scan of head: Brain: Severe ischemic microangiopathy. Mild cerebral volume loss. No acute findings in the head/brain. Contributing factors include: hyperglycemia with glucose 412, residual right foot infection, dehydration, progression of underlying previous memory loss Admit to monitored bed orthostatic hypotensive measurements: sitting 108/63, standing 96/49 --> meets criteria w/ > 10 mm Hg change in diastolic pressure repeat orthostatic measurements: sitting 139/75, standing 96/67 --> meets criteria w/ > 20 mm Hg change in systolic pressure and > 10 mm Hg change in diastolic pressure - patient's orthostatic hypotension, in the context of uncontrolled T2DM, would be consistent with neurogenic etiology 2) Uncontrolled diabetes mellitus with hyperglycemia- Glucose 412 on admission Regular insulin 8 units IV already ordered by the emergency department Unsure if patient is actually taking his glargine at home Reduce glargine from 30-20 in the subcu twice daily, with dose this evening after getting IV regular insulin Placed on Accu-Cheks with NovoLog SSI Continue normal saline at 100 mL/h Hold metformin CBC with differential, BMP, magnesium level on AM labs -K, 4.3 <-- 5.4 -Glu, 131 <-- 555 -Ca, Mg, P all normal 3) MSSA osteomyelitis involving right foot/status post amputation on 03/06/2023- Discontinued vancomycin IV and Zosyn IV MRI right foot and ankle: no acute findings, only postoperative inflammatory signals with minimal amount of marrow edema 4) Eschar on r. heel - patient apparently has had it for weeks, has been wearing a shoe to prevent a pressure ulcer - only mildly tender w/ palpation, pain 2/10 at edges, maybe a 4/10 in center of eschar - consult w/ Podiatry placed, awaiting recommendations 4) Hypotension- Blood pressure initially 90/67, has improved to 131/78 with IV fluid rehydration as noted Hold furosemide, and lisinopril Reduced metoprolol tartrate 100 mg, PO, BID to 50 mg, PO, BID with hold parameters Admission and Anticipated Discharge Date Admission Date: April 30, 2023 Supervising Physician Co-Signing Physician Notes Attending Physician Supervision Note: I independently interviewed and examined the patient and verified the lei history and physical, reviewed labs and image studies and agree with findings and care plan noted above. noted by nursing to have right heel deep wound with eschar. vitals noted nad heent nc at mmm breathing unlabored no accessory muscles good effort skin no rashes no pallor or icterus neuro no focal deficits. left heel - 2-3cm wide deep with black eschar. no drainage. Syncope - sec to ? DKA d/t uncontrolled type DM - Also with underlying orthostatic hypotension - symptomatically better with IVF. Blood sugars better controlled. Right heel wound - wound care and podiatry consult placed. Uncontrolled DM - already has CGM. to contact outpatient care management team. MSSA osteomyelitis involving right foot/status post amputation on 03/06/2023- - MRI right foot and ankle: no acute findings, only postoperative inflammatory signals with minimal amount of marrow edema - was given IV abx on admit. with no sign of new infection - abx d/c. has finished 4 wk course of abx after surgery. Subjective Primary Care Provider: Kaushal Johnson MD The patient is a 57-year-old male with a past medical history including PAD, right foot osteomyelitis status post toe amputation on 03/06/[address] Garcia, uncontrolled diabetes mellitus type 2 on insulin, HFpEF, V. tach, CKD, neuropathy, hypertension and hyperlipidemia. The patient was most recently admi tted to [facility] from 03/05-03/15/2023 due to her right foot MSSA osteomyelitis, and underwent toe amputation. The patient presents to the emergency department today with an episode of syncope, and confusion following. Upon arrival to the emergency department he was noted to be confused, and hypotensive with blood pressure 94/67. The patient presents to the emergency department after a syncopal episode followed by confusion, with the patient not remembering where he was when he passed out, and how he was brought to the emergency department. The symptoms improved somewhat with initial emergency department interventions of normal saline 1 L bolus and vancomycin 1750 mg IV. Significant laboratories: Potassium 5.4, glucose 412, lactate 2.4. I saw the patient this morning and he continues to have no memory of the event, and also did not endorse ever having a similar event where he passed out before, whether it be syncopal or otherwise. Patient's longer term memory seems to be largely intact, as he remembers facts, names, etc about current events and topics of interest like football. Patient Review of Systems Constitutional: no fever, no chills, no sweats, no fatigue and no weakness Respiratory: no cough and no dyspnea Cardiovascular: + lightheadedness and + syncope (doesn't remember feeling this way); no chest pain and no palpitations Gastrointestinal: no nausea, no vomiting and no diarrhea/loose stools Genitourinary: no dysuria, no urinary frequency or no hematuria Neurologic: + tingling (baseline tingling in hands) Physical Exam Constitutional: WD/WN, vitals as above Eyes: + eyelid abnormality (ptosis of r. eye), PERRL, normal accommodation and EOM intact bilaterally Respiratory: normal respiratory effort, lungs clear to auscultation Cardiovascular: RRR, no murmur, no edema Extremities: normal capillary refill and + calf tenderness (r. calf muscle) Gastrointestinal (Abdomen): normal bowel sounds, soft, nontender, no hepatosplenomegaly Neurologic: CN's II-XI intact bilaterally, moves all extremities and awake Psychiatric: A+Ox3, euthymic affect Results & Data Results & Data Vital Signs (Past 12 Hours) Vital Signs Temp Pulse Pulse Resp BP Pulse Ox O2 Del Method 05/03/23 15:00 77 05/03/23 14:51 36.7 C 79 18 134/72 99 Room Air 05/03/23 11:51 36.3 C L 71 18 109/67 99 Room Air 05/03/23 07:32 81 Resident Activity Tracking Resident Involvement: Resident Care Provided Care Provided: Adult [facility]
[2023-05-03] MEDS: ACETAMINOPHEN 325 MG TAB PO PRN (21:36)
--- NOTE | 2023-05-04 06:49 | Hospitalist Progress Note ---
Date of Service May 04, 2023 Assessment & Plan (1) Syncope and collapse: (2) Acute confusion: (3) Osteomyelitis of right foot: (4) Diabetic ulcer of right great toe: (5) Eschar of heel: (6) PAD (peripheral artery disease): (7) Uncontrolled type 2 diabetes mellitus with hyperglycemia, with long-term current use of insulin: (8) Chronic heart failure with preserved ejection fraction (HFpEF): (9) CKD (chronic kidney disease): (10) Frequent falls: (11) Memory loss: (12) Uncontrolled type 2 diabetes mellitus with diabetic neuropathy, with long- term current use of insulin: (13) Orthostatic hypotension: Plan 1) Syncope and collapse: (2) Acute confusion: (3) Osteomyelitis of right foot: (4) Diabetic ulcer of right great toe: (5) PAD (peripheral artery disease): (6) Uncontrolled type 2 diabetes mellitus with hyperglycemia, with long-term current use of insulin: (7) Chronic heart failure with preserved ejection fraction (HFpEF): (8) CKD (chronic kidney disease): (9) Frequent falls: (10) Memory loss: (11) Uncontrolled type 2 diabetes mellitus with diabetic neuropathy, with long- term current use of insulin: Plan 1) Syncope and collapse/history of frequent falls/memory loss/acute confusion- CT scan of head: Brain: Severe ischemic microangiopathy. Mild cerebral volume loss. No acute findings in the head/brain. Contributing factors include: hyperglycemia with glucose 412, residual right fo ot infection, dehydration, progression of underlying previous memory loss Admit to monitored bed orthostatic hypotensive measurements: sitting 108/63, standing 96/49 --> meets criteria w/ > 10 mm Hg change in diastolic pressure repeat orthostatic measurements: sitting 139/75, standing 96/67 --> meets criteria w/ > 20 mm Hg change in systolic pressure and > 10 mm Hg change in diastolic pressure - patient's orthostatic hypotension, in the context of uncontrolled T2DM, would be consistent with neurogenic etiology 2) Uncontrolled diabetes mellitus with hyperglycemia- Glucose 412 on admission Regular insulin 8 units IV already ordered by the emergency department Unsure if patient is actually taking his glargine at home Reduce glargine from 30-20 in the subcu twice daily, with dose this evening after getting IV regular insulin Placed on Accu-Cheks with NovoLog SSI Continue normal saline at 100 mL/h Hold metformin CBC with differential, BMP, magnesium level on AM labs -K, 4.3 <-- 5.4 -Glu, 131 <-- 555 -Ca, Mg, P all normal 3) MSSA osteomyelitis involving right foot/status post amputation on 03/06/2023- Discontinued vancomycin IV and Zosyn IV MRI right foot and ankle: no acute findings, only postoperative inflammatory signals with minimal amount of marrow edema 4) 1) Syncope and collapse: (2) Acute confusion: (3) Osteomyelitis of right foot: (4) Diabetic ulcer of right great toe: (5) PAD (peripheral artery disease): (6) Uncontrolled type 2 diabetes mellitus with hyperglycemia, with long-term current use of insulin: (7) Chronic heart failure with preserved ejection fraction (HFpEF): (8) CKD (chronic kidney disease): (9) Frequent falls: (10) Memory loss: (11) Uncontrolled type 2 diabetes mellitus with diabetic neuropathy, with long- term current use of insulin: Admission and Anticipated Discharge Date Admission Date: April 30, 2023 Subjective Primary Care Provider: Kaushal Johnson MD The patient is a 57-year-old male with a past medical history including PAD, right foot osteomyelitis status post toe amputation on 03/06/[address] Garcia, uncontrolled diabetes mellitus type 2 on insulin, HFpEF, V. tach, CKD, neuropathy, hypertension and hyperlipidemia. The patient was most recently admitted to [facility] from 03/05-03/15/2023 due to her right foot MSSA osteomyelitis, and underwent toe amputation. The patient presents to the emergency department today with an episode of syncope, and confusion following. Upon arrival to the emergency department he was noted to be confused, and hypotensive with blood pressure 94/67. The patient presents to the emergency department after a syncopal episode followed by confusion, with the patient not remembering where he was when he passed out, and how he was brought to the emergency department. The symptoms improved somewhat with initial emergency department interventions of normal saline 1 L bolus and vancomycin 1750 mg IV. Significant laboratories: Potassium 5.4, glucose 412, lactate 2.4. I saw the patient this morning and he appears back to baseline. Though he initially denied similar "passing out" events, syncopal or otherwise, patient has since endorsed at least one other episode during which he felt like he saw a 'flash of light' before passing out. Patient's longer term memory is intact, as he remembers facts, names, trivia about current events, topics of interest like football. Pt says he's been religiously taking metformin for last 6 mos. 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 Regarding insulin doses: no needle phobia, doesn't endorse missing doses. When questioned, pt thinks he had last diabetic retinal exam 3 mos ago w/ eye doctor, Dr Ramos. Pt feels like when he stands up feels weak for about 30 sec before "getting his feet back" (seems consistent with orthostatic hypotension). Counseled pt that a lot of his recent hospitalizations seem to stem from uncontrolled diabetes and progression of his diabetes to which he agreed. Review of Systems Constitutional: no fever, no chills, no sweats, no fatigue and no weakness Respiratory: no cough and no dyspnea Cardiovascular: + lightheadedness and + syncope (doesn't remember feeling this way); no chest pain and no palpitations Gastrointestinal: no nausea, no vomiting and no diarrhea/loose stools Genitourinary: no dysuria, no urinary frequency or no hematuria Neurologic: + tingling (baseline tingling in hands) Physical Exam Constitutional: WD/WN, vitals as above Respiratory: normal respiratory effort, lungs clear to auscultation Cardiovascular: RRR, no murmur, no edema Gastrointestinal (Abdomen): normal bowel sounds, soft, nontender, no hep atosplenomegaly Neurologic: PERRL, EOMI, accommodation nl, no face palsy, no dysarthria CN's II-XI intact bilaterally Speech / Cognition: normal speech Psychiatric: A+Ox3, euthymic affect Eye Contact: good eye contact Speech: normal rate/rhythm/volume of speech Results & Data Results & Data Vital Signs (Past 12 Hours) Vital Signs Temp Pulse Pulse Resp BP BP Pulse Ox 05/04/23 04:00 05/04/23 03:41 36.8 C 74 18 107/66 96 05/04/23 01:00 05/04/23 00:00 82 05/03/23 22:27 36.7 C 78 18 129/70 97 05/03/23 19:16 36.8 C 83 18 130/75 100 O2 Del Method O2 Del Method 05/04/23 04:00 Room Air 05/04/23 03:41 Room Air 05/04/23 01:00 Room Air 05/04/23 00:00 05/03/23 22:27 Room Air 05/03/23 19:16 Room Air
[2023-05-04 09:30] LABS: Creatinine Clr Calc Pharmacy 92.3 ml/min; Est GFR (African American) 108.5 ml/min; Est GFR (Non-African American) 93.6 ml/min
--- NOTE | 2023-05-04 11:34 | Orthopedic Consultation ---
Date of Consultation May 04, 2023 Assessment & Plan (1) Eschar of heel: Patient seen, evaluated, and treated. Reviewed MRI, Duplex lower extremity artery scan, and Venous doppler. Off loading is an important part of this Patient management. Patient's heel resting on bed at ulcer site. Order for waffle off loading boots. No other intervention at this time. Will continue to follow while Patient remains in house. Thank you for allowing me to participate in the care of this Patient. (2) Osteomyelitis of right foot: (3) Uncontrolled type 2 diabetes mellitus with hyperglycemia, with long-term current use of insulin: History of Present Illness Attending Physician: Makenna Bravo MD History of Present Illness Patient is a 57-year-old male who is seen at bedside in room S243-1 for right heel wound. Patient has a past medical history significant for PAD, and right foot osteomyelitis status post transmetatarsal amputation on 03/06/2023, uncontrolled diabetes mellitus type 2 on insulin, HFpEF, V. tach, CKD, neuropathy, hypertension and hyperlipidemia. The patient was admitted to [facility] from the emergency on 04/30/22 after an episode of syncope, and confusion following. Allergies Allergy/AdvReac Type Severity Reaction Status Date / Time levofloxacin AdvReac Intermediate GI SYMPTOMS Verified 02/01/23 13:37 pneumococcal vaccine AdvReac Intermediate GI Verified 02/01/23 13:37 SYMPTOMS-OK IF MULTIPLE VACCINES GIVEN SEPARATELY tetanus toxoid, adsorbed AdvReac Intermediate TETANUS/DIPTHERIA/PERTUSSIS-GI Verified 02/01/23 13:37 UPSTE/BODY ACHES Home Medications Medication Instructions Recorded Confirmed Type gabapentin 600 mg tablet 600 mg PO AMHS 01/30/22 04/30/23 History metformin 1,000 mg tablet 1,000 mg PO AMHS 01/30/22 04/30/23 History pantoprazole 40 mg tablet,delayed 40 mg PO QAM 01/30/22 04/30/23 History release potassium chloride 20 mEq 40 meq (2 x 20 mEq) PO QAM #60 tabs 02/09/22 04/30/23 Rx tablet,extended release(part/cryst) aspirin 81 mg tablet,delayed 81 mg PO QAM 03/08/22 04/30/23 History release (Adult Aspirin Regimen) cholecalciferol (vitamin D3) 25 25 mcg PO QAM 03/08/22 04/30/23 History mcg (1,000 unit) capsule furosemide 20 mg tablet 20 mg PO QAM 11/12/22 04/30/23 History magnesium chloride 64 mg 64 mg PO QAM #30 tabs 11/13/22 04/30/23 Rx (magnesium chloride) tablet,delayed release (Mag 64) blood sugar diagnostic 12/07/22 04/30/23 History blood-glucose sensor (Dexcom G6 12/07/22 04/30/23 History Sensor device) pen needle, diabetic 32 gauge x 12/07/22 04/30/23 History 5/32" (BD Ultra-Fine Fanny Pen Needle) BiPap Machine 03/05/23 04/30/23 History bupropion HCl 300 mg 24 hr tablet, 300 mg PO QAM 04/25/23 04/30/23 History extended release insulin aspart U-100 100 unit/mL See Rx Instructions [facility] 04/25/23 04/30/23 History subcutaneous solution (Novolog U-100 Insulin aspart) lisinopril 2.5 mg tablet 2.5 mg PO DAILY 04/26/23 04/30/23 History acetaminophen 325 mg tablet 650 mg PO Q6 PRN pain 1-10 04/30/23 04/30/23 History aspirin 325 mg tablet 650 mg PO Q6 PRN temp>100 04/30/23 04/30/23 History insulin glargine 100 unit/mL (3 22 unit subcut HS 04/30/23 04/30/23 History mL) subcutaneous pen (Basaglar KwikPen U-100 Insulin) insulin glargine 100 unit/mL (3 30 unit subcut [facility] 04/30/23 04/30/23 History mL) subcutaneous pen (Basaglar KwikPen U-100 Insulin) metoprolol tartrate 100 mg tablet 100 mg PO [facility] 04/30/23 04/30/23 History rosuvastatin 40 mg tablet 40 mg PO HS 04/30/23 04/30/23 History blood-glucose meter (OneTouch #1 ea 05/04/23 Rx Ultra2 Meter) lancets 30 gauge (OneTouch #200 ea 05/04/23 Rx UltraSoft 2 Lancet) Patient History Medical History Diabetic ulcer of right great toe Working with Dr. Campos, now s/p amputation Necrotic toes Infected prosthetic knee joint KUN (acute kidney injury) Acute hyperglycemia Elevated troponin Elevated LFTs Gram-negative bacteremia Infection of total left knee replacement Leg swelling Fatigue Venous stasis ulcer Diabetic ulcer of left heel Seizure-like activity History of infection of total joint prosthesis of knee GERD (gastroesophageal reflux disease) Hx MRSA infection 2017> resolved Hx of diabetic foot ulcer Bulging lumbar disc GERD (gastroesophageal reflux disease) History of anemia Attention deficit disorder (ADD) Anxiety and depression History of kidney stones Cardiac murmur FOLLOWS WITH DR. GREENWOOD Serum potassium elevated Osteoarthritis Sleep apnea CPAP Acute on chronic congestive heart failure CHF (congestive heart failure) Obstructive sleep apnea syndrome Hyperlipidemia HTN (hypertension) Acute diastolic congestive heart failure Infection of prosthetic right knee joint Hypokalemia Streptococcal sepsis Hypophosphatemia Hyponatremia Ulcer of left midfoot Acquired bilateral hammer toes Callus Diabetic ulcer of left foot Cellulitis of left leg Pleural effusion DM type 2 (diabetes mellitus, type 2) Acquired claw toe of right foot Testicular pain Low back pain with sciatica History of diabetic ulcer of foot Dysesthesia Diabetic peripheral neuropathy associated with type 2 diabetes mellitus Surgical History History of tooth extraction History of open reduction and internal fixation (ORIF) procedure RT HAND S/P revision of total knee LEFT History of total left knee replacement History of revision of total replacement of knee joint (05/23/12) Amputated great toe of right foot History of colonoscopy History of wisdom tooth extraction Family History Father Family history of diabetes mellitus Other No family history of adverse response to anesthesia No pertinent family history Social History Smoking Status: Never smoker Second Hand Exposure: Yes; Do You Dip or Chew Tobacco: No; Hx Alcohol Use: Yes Alcohol type: beer Hx Substance Use: No Preferred Language: Moldovan Communication Ability: Effective Visual Impairment: Limited Hardwood Sawyer Required: No Beliefs That Will Affect Care: None marital status: Current Living Situation: Spouse current occupational status: employed 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 , 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 How many Children do You have: 2 Feels Safe at Home: Yes Diet: diabetic during the past year weight has: remained stable Assistive Devices: Walker and Wheelchair Review of Systems Review of Systems: All systems reviewed & are unremarkable except as noted in HPI & below Physical Exam Constitutional: + frail appearing, cooperative and comfo rtable Eyes: normal visual garrett by confrontation Neck: normal visual inspection Respiratory: normal respiratory effort Cardiovascular: Vessels: posterior tibial pulses present and dorsalis pedis pulses present Musculoskeletal: Extremities: + amputation noted (Right TMA) Skin: + eschar (Right heel. Dry, intact, no dr manley, no erythema.) Neurologic: Absent epicritic sensation Psychiatric: Orientation: alert and oriented x 3 Results & Data Vital Signs (Past 12 Hours) Vital Signs Temp Pulse Pulse Resp BP BP Pulse Ox 05/04/23 07:30 36.8 C 75 18 126/70 95 05/04/23 07:00 72 05/04/23 04:00 05/04/23 03:41 36.8 C 74 18 107/66 96 05/04/23 01:00 05/04/23 00:00 82 O2 Del Method O2 Del Method 05/04/23 07:30 Room Air 05/04/23 07:00 05/04/23 04:00 Room Air 05/04/23 03:41 Room Air 05/04/23 01:00 Room Air 05/04/23 00:00 Diagnostic Findings [place], [place] [phone] Magnetic Resonance Report Patient: KY LOMBARDI Admit Date: 04/30/23 MR#: [id number] Address1: [address] [place] [address] Acct ID:[id number] Address2: Date: 1965 [facility] Zip: [place] [address] Age: 57 Location: [facility] Sex: M Room/Bed: [place] [id number] Att Phy: Quentin Gray MD Diagnosis: SYNCOPE, CONFUSION, HYPEERGLYCEMIA IN DM/LEFT FOOT Kadi Phy: Kaushal Johnson MD Service Date: 05/01/23 Fam Phy: Interpreting Phy: Dusty Mackenzie MDAdmit Phy: Quentin Gray MD Ordering Phy: Quentin Gray MD cc: ~ ADDENDUM ADDENDUM: Exam(s): MRI RIGHT FOOT Without Contrast EXAM: MR Right Lower Extremity Without Intravenous Contrast, Foot CLINICAL HISTORY: Reason for exam: osteo, s/p amputation of toes. TECHNIQUE: Multiplanar magnetic resonance images of the right foot without intravenous contrast. COMPARISON: No relevant prior studies available. FINDINGS: : Postoperative inflammatory signal within the soft tissues about the foot with minimal amount of marrow edema involving the distal aspects of the residual fifth, fourth, and third metatarsal remnants. IMPRESSION: No acute findings in the right foot. Electronically signed by: Dusty Mackenzie MD 05/01/23 02:18 AM ADDENDUM END Exam(s): MRI RIGHT FOOT Without Contrast EXAM: MR Right Lower Extremity Without Intravenous Contrast, Foot CLINICAL HISTORY: Reason for exam: osteo, s/p amputation of toes. TECHNIQUE: Multiplanar magnetic resonance images of the right foot without intravenous contrast. COMPARISON: No relevant prior studies available. FINDINGS: LIGAMENTS: Medial collateral: Unremarkable. Lateral collateral: Unremarkable. Lisfranc: Unremarkable. TENDONS: Flexor: Unremarkable. Extensor: Unremarkable. Peroneal: Unremarkable. Tibialis anterior: Unremarkable. Tibialis posterior: Unremarkable. Muscles: Unremarkable. Fluid: Unremarkable. No joint effusion. Sinus tarsi: Unremarkable as visualized. Tarsal tunnel: Unremarkable. Plantar fascia: Unremarkable. Cartilage: Unremarkable. Bones/joints: Unremarkable. No acute fracture. Soft tissues: Postoperative inflammatory signal within the soft tissues about the foot with minimal amount of marrow edema involving the distal aspects of the residual fifth, fourth, and third metatarsal remnants. IMPRESSION: No acute findings in the right foot. Electronically signed by: Dusty Mackenzie MD 05/01/23 02:17 AM Dictated: 05/01/23216 Transcribed: 05/01/23216 KY LOMBARDI [id number] Allergy/Adv: levofloxacin, pneumococcal vaccine, tetanus toxoid, adsorbed (More) Close Venous Doppler Study (Signed) Nicholas Rao - 05/01/[address] (Signed) Dusty Mackenzie - 05/01/23 Foot MRI (Signed) Dusty Mackenzie - 05/01/23 Duplex Scan Lower Extremity Artery (Signed) Dusty Mackenzie - 04/30/23 Chest X-Ray (Signed) Davie Fitzgerald - 04/30/23 Venous Doppler Study (Signed) Davie Fitzgerald - 03/12/23 Duplex Scan Lower Extremity Artery (Signed) Blaise Vinson - 03/08/23 Renal Ultrasound (Signed) Alban,Tim - 03/05/23 Chest X-Ray (Signed) Blaise Vinson - 03/05/23 Foot MRI (Signed) Alban,Tim - 03/05/23 Foot X-Ray (Signed) Davie Fitzgerald - 03/05/23 Hepatobiliary Scan Nuclear Medicine (Signed) Gus Haider - 11/12/22 Chest CTA (Signed) Milly Schmidt - 11/12/22 Chest X-Ray (Signed) Carl Deras - 11/12/22 Abdomen/Pelvis CT (Signed) Milly Schmidt - 11/12/[address] (Signed) Carl Deras - 01/30/22 Abdomen/Pelvis CT (Signed) Carl Deras - 01/30/22 Chest X-Ray (Signed) Blaise Vinson - 01/30/22 Knee X-Ray (Signed) Gus Haider - 01/04/22 Ankle MRI (Signed) Nilton Mchugh - 01/01/22 Chest X-Ray (Signed) Gus Haider - 12/31/21 Venous Doppler Study (Signed) Gus Haider - 12/31/21 Knee X-Ray (Signed) Gus Haider - 12/31/[address] (Signed) Gus Haider - 12/31/21 Arterial Duplex Lower Extremity Bilat 11/07/21 Vascular Duplex Study Rpt Kaushal Braga MD Jones, Christopher R., MD - 11/07/21 Calcaneus X-Ray (Signed) Indio Chauhan - 10/17/21 Brain MRI (Signed) Nilton Mchugh - 08/04/[address] (Signed) Nilton Mchugh - 08/04/21 Abdomen/Pelvis CT (Signed) Davie Fitzgerald - 08/04/21 Chest X-Ray (Signed) Nilton Mchugh - 08/04/21 Guidance Fluoroscopy 07/20/[address] (Signed) Carl Deras - 07/04/21 Chest X-Ray (Signed) Carl Deras - 07/04/21 Lumbar Spine X-Ray 07/04/21 Abdomen/Pelvis CT (Signed) GisselBorjas - 05/28/21 Guidance Fluoroscopy 02/13/21 Neck Magnetic Resonance Angiography (Signed) Nilton Mchugh - 11/09/20 Head Magnetic Resonance Angiography (Signed) Nilton Mchugh - 11/09/20 Brain MRI (Signed) Nilton Mchugh - 11/09/20 Chest X-Ray (Signed) Gus Haider - 11/09/[address] (Signed) Gus Haider - 11/09/20 Guidance Fluoroscopy 10/10/20 Abdomen/Pelvis CT (Signed) Davie Fitzgerald - 01/07/20 Chest X-Ray (Signed) Blaise Vinson - 12/11/19 Chest X-Ray (Signed) Blaise Vinson - 12/09/19 Lumbar Spine MRI (Signed) Luis Woods - 07/17/19 Cervical Spine X-Ray (Signed) Nilton Mchugh - 03/28/19 Foot X-Ray (Signed) Shaun Das - 10/14/18 Venous Doppler Study (Signed) Jared Lux - 02/17/18 Knee X-Ray (Signed) Nilton Mchugh - 01/30/18 Chest X-Ray (Signed) Nilton Mchugh - 01/30/18 Knee X-Ray (Signed) Gus Haider - 01/07/18 Chest X-Ray (Signed) Nilton Mchugh - 01/05/18 Chest X-Ray (Signed) Luis Woods - 01/03/18 Chest X-Ray (Signed) Luis Woods - 01/01/18 Chest CTA (Signed) Luis Woods - 01/01/18 Venous Doppler Study (Signed) Gus Haider - 01/01/18 Knee X-Ray (Signed) Blaise Vinson - 01/01/18 Chest X-Ray (Signed) Gus Haider - 01/01/18 [place], [place] [phone] Ultrasound Report Patient: KY LOMBARDI Admit Date: 04/30/23 MR#: [id number] Address1: [address] [place] [address] Acct ID:[id number] Address2: Date: 1965 [facility] Zip: [place] [address] Age: 57 Location: 2S Sex: M Room/Bed: [facility] Att Phy: Makenna Bravo MD Diagnosis: SYNCOPE, CONFUSION, HYPEERGLYCEMIA IN DM/LEFT FOOT Kadi Phy: Kaushal Johnson MD Service Date: 05/01/23 Fam Phy: Interpreting Phy: Nicholas Roa DOAdmit Phy: Quentin Gray MD Ordering Phy: Kaushal Alvarado MD cc: ~ Exam(s): US VENOUS RIGHT LOWER EXTREMITY EXAM: US Duplex Right Lower Extremity Veins CLINICAL HISTORY: Reason for exam: right calf tenderness. TECHNIQUE: Real-time duplex ultrasound scan of the right lower extremity veins integrating B-mode two-dimensional vascular structure, Doppler spectral analysis, color flow Doppler imaging and compression. COMPARISON: No relevant prior studies available. FINDINGS: Deep veins: Unremarkable. No DVT in the visualized common femoral, femoral, proximal deep femoral or popliteal veins. The veins demonstrate normal color flow, are normally compressible, with normal phasic flow and/or augmentation response. Superficial veins: Unremarkable. No thrombus in the visualized great saphenous vein. Soft tissues: No acute findings. No popliteal cyst. IMPRESSION: Normal right lower extremity duplex venous ultrasound. Electronically signed by: Nicholas Roa MD 05/02/23 05:40 AM Dictated: 05/02/23539 Transcribed: 05/02/23539
--- NOTE | 2023-05-04 11:54 | Discharge Summary ---
Date of Service May 04, 2023 Admission HPI Per Admitting Provider The patient is a 57-year-old male with a past medical history including PAD, right foot osteomyelitis status post toe amputation on 03/06/[address] Garcia, uncontrolled diabetes mellitus type 2 on insulin, HFpEF, V. tach, CKD, neuropathy, hypertension and hyperlipidemia. The patient was most recently admitted to [facility] from 03/05-03/15/2023 due to her right foot MSSA osteomyelitis, and underwent toe amputation. The patient presents to the emergency department today with an episode of syncope, and confusion following. Upon arrival to the emergency department he was noted to be confused, and hypotensive with blood pressure 94/67. The symptoms improved somewhat with initial emergency department interventions of normal saline 1 L bolus and vancomycin 1750 mg IV. Significant laboratories: Potassium 5.4, glucose 412, lactate 2.4. Admission Exam Per Admitting Provider Physical Exam: The patient is awake, still intermittently confused, normocephalic and atraumatic, lying in bed and in no acute distress. HEENT--PERRL, EOMI, mucous membranes and oropharynx dry. Neck--supple. No JVD. No bruits. Thyroid normal, trachea midline, no adenopathy. Heart--normal S1 and S2. No murmurs, rubs or gallops. Lungs--clear bilaterally, no respiratory distress, no accessory muscle use. Abdomen--normal bowel sounds and soft. Nontender. Nondistended, no hernias or masses, no organomegaly. Extremities--no cyanosis or clubbing. No edema. There are good distal pulses b/l. Dermatologic--left lower extremity normal. Right lower extremity with well- healed approximated incision. Eschar with mild surrounding edema at heel base, medial malleolar abrasion with mild erythema Neurologic--cranial nerves II through XII grossly intact. Rheumatologic--limited exam due to left ankle and foot wrapping and infection Psychiatric--intermittently confused. Principal Diagnosis syncope, orthostatic hypotension Discharge Exam Constitutional WD/WN, vitals as above Respiratory normal respiratory effort, lungs clear to auscultation Cardiovascular RRR, no murmur, no edema Gastrointestinal (Abdomen) normal bowel sounds, soft, nontender, no hepatosplenomegaly Neurologic PERRL, EOMI, accommodation nl, no face palsy, no dysarthria CN's II-XI intact bilaterally Speech / Cognition: normal speech Psychiatric A+Ox3, euthymic affect Eye Contact: good eye contact Speech: normal rate/rhythm/volume of speech Discharge Data Allergies Allergy/AdvReac Type Severity Reaction Status Date / Time levofloxacin AdvReac Intermediate GI SYMPTOMS Verified 02/01/23 13:37 pneumococcal vaccine AdvReac Intermediate GI Verified 02/01/23 13:37 SYMPTOMS-OK IF MULTIPLE VACCINES GIVEN SEPARATELY tetanus toxoid, adsorbed AdvReac Intermediate TETANUS/DIPTHERIA/PERTUSSIS-GI Verified 02/01/23 13:37 UPSTE/BODY ACHES Consultations 04/30/23 23:05 ED Decision to Admit Stat 05/03/23 11:36 Consult Podiatry Routine 05/03/23 13:20 Consult Patient Rep [Consult Patient Services] Routine Ordered Studies 04/30/23 20:10 US arterial duplex LE LT Stat 05/01/23 00:29 MRI Foot [MR foot RT w/o con] Stat 05/01/23 03:05 CT head/brain wo con Stat 05/01/23 17:01 US venous doppler LE RT Stat Hospital Course (1) Syncope and collapse: (2) Orthostatic hypotension: (3) Acute confusion: (4) Uncontrolled type 2 diabetes mellitus with hyperglycemia, with long-term current use of insulin: (5) Osteomyelitis of right foot: (6) Diabetic ulcer of right great toe: (7) Eschar of heel: (8) PAD (peripheral artery disease): (9) Chronic heart failure with preserved ejection fraction (HFpEF): (10) CKD (chronic kidney disease): (11) Frequent falls: (12) Memory loss: (13) Uncontrolled type 2 diabetes mellitus with diabetic neuropathy, with long- term current use of insulin: Plan 1) Syncope and collapse: (2) Acute confusion: (3) Osteomyelitis of right foot: (4) Diabetic ulcer of right great toe: (5) PAD (peripheral artery disease): (6) Uncontrolled type 2 diabetes mellitus with hyperglycemia, with long-term current use of insulin: (7) Chronic heart failure with preserved ejection fraction (HFpEF): (8) CKD (chronic kidney disease): (9) Frequent falls: (10) Memory loss: (11) Uncontrolled type 2 diabetes mellitus with diabetic neuropathy, with long- term current use of insulin: Plan 1) Syncope and collapse/history of frequent falls/memory loss/acute confusion/orthostatic hypotension CT scan of head: Brain: Severe ischemic microangiopathy. Mild cerebral volume loss. No acute findings in the head/brain. Contributing factors include: hyperglycemia with glucose 412, residual right foot infection, dehydration, progression of underlying previous memory loss Admit to monitored bed orthostatic hypotensive measurements: sitting 108/63, standing 96/49 --> meets criteria w/ > 10 mm Hg change in diastolic pressure repeat orthostatic measurements: sitting 139/75, standing 96/67 --> meets criteria w/ > 20 mm Hg change in systolic pressure and > 10 mm Hg change in diastolic pressure - patient's orthostatic hypotension, in the context of uncontrolled T2DM, would be consistent with neurogenic etiology 2) Uncontrolled diabetes mellitus with hyperglycemia- Glucose 412 on admission Regular insulin 8 units IV already ordered by the emergency department Patient endorses taking his insulin at home Reduce glargine from 30-20 in the subcu twice daily, with dose this evening after getting IV regular insulin Placed on Accu-Cheks with NovoLog SSI Restart metformin as outpatient ordered OneTouch glucose meter and lancet strips with it for outpt use 3) MSSA osteomyelitis involving right foot/status post amputation on 03/06/2023- Discontinued vancomycin IV and Zosyn IV MRI right foot and ankle: no acute findings, only postoperative inflammatory signals with minimal amount of marrow edema 4) Eschar on r. heel - patient has had it for weeks, has been wearing a cushioned shoe to prevent a pressure ulcer - only mildly tender w/ palpation, pain 2/10 at edges, maybe a 4/10 in center of eschar - consult w/ Podiatry placed: Their assessment was that wound is stable, no intervention besides pressure reduction/offloading recommended. Recommend a waffle boot. 5) Hypotension- -resolved Blood pressure initially 90/67, improved to 131/78 with IV fluid rehydration as noted Held furosemide, and lisinopril, reduced metoprolol tartrate 100 mg to 50 mg, PO, BID Total Time Total Time Spent Total Time Spent (In Minutes): see attending attestation Discharge Plan Discharge Items Patient Disposition: Home - Self-Care Reason For Visit: SYNCOPE, CONFUSION, HYPEERGLYCEMIA IN DM/LEFT FOOT Discharge Diagnosis: syncope, orthostatic hypotension, uncontrolled type II diabetes Activity: Resume your previous activity Activity Comment: increase daily activity in gradual way to improve conditioning Non-emergency contact: Primary Care Provider Call non-emergency contact if: you have any medication questions and your symptoms worsen Follow-up/Referrals: Kaushal Johnson MD [Primary Care Provider] - Diet: Carb Consistent or DM2 and Heart Healthy Addtl Attending Provider Instructions: You were admitted to the hospital for syncope, hyperglycemia, in context of T2DM diagnosis. You were treated with different types of insulin, fluids, and some home medications. A discharge summary will be sent to your primary care physician to ensure continuity of care. Please bring this discharge summary with you to your next office appointment so that your provider can review it at that time. Follow-up appointments: We have requested a follow-up appointment with your primary care physician within one week of discharge. Please call their office if you do not hear from them. Keep all your follow-up appointments as already scheduled. If you cannot make an appointment, notify your provider. Medications: Your medication list has been reviewed and reconciled upon discharge to ensure accuracy and continuity of care. An updated list of all your medications is included with your hospital discharge paperwork. Please review this list closely, and make note of any changes. We sent a prescription for a glucose meter called OneTouch Ultra 2 Meter to your pharmacy. We sent a prescription for OneTouch UltraSoft 2 Lancets to your pharmacy. Take your medications as instructed; do not skip a dose of your medicines. Make sure all of your doctors know every medicine you are taking (including rdiw-chy-zzscaki medicines, vitamins, and supplements). Call your primary care provider before taking any new medicines (including kcud-nyg-zlvypzz medicines, vitamins, and supplements), because some of these may interact with your current medications, or may make your symptoms worse. Tell your primary care provider if you cannot afford your medications. CONTACT YOUR PRIMARY CARE PROVIDER if you experience any of the following: syncope (passing out), dizziness upon standing falls, episodes of blacking out/loss of consciousness Difficulty following your treatment plan, or difficulty taking medications CALL 911 OR GO TO THE EMERGENCY DEPARTMENT if you experience any of the following: Sudden, severe abdominal pain or nausea/vomiting Severe chest pain, or chest pain that radiates (moves) to your jaw or arm Sudden, severe shortness of breath or difficulty breathing Thank you for allowing us to participate in your care Pending Studies at Discharge: No Stand-Alone Forms: [facility], Smoking Cessation Medications and DC Order Prescriptions: New (DME) blood-glucose meter [OneTouch Ultra2 Meter] Misc See Rx Instructions .Route Qty: 1 0RF Rx Instructions: As directed (DME) lancets [OneTouch UltraSoft 2 Lancet] 30 gauge misc See Rx Instructions .Route Qty: 200 0RF Rx Instructions: As directed Continued aspirin [Adult Aspirin Regimen] 81 mg tablet,delayed release (DR/EC) 81 mg PO QAM cholecalciferol (vitamin D3) 25 mcg (1,000 unit) capsule 25 mcg PO QAM (DME) Dexcom G6 Sensor Device See Rx Instructions .Route Rx Instructions: As directed (DME) pen needle, diabetic [BD Ultra-Fine Fanny Pen Needle] 32 gauge x 5/32" needle See Rx Instructions .Route Rx Instructions: As directed (DME) blood sugar diagnostic Strip See Rx Instructions .Route Rx Instructions: As directed insulin aspart U-100 [Novolog U-100 Insulin aspart] 100 unit/mL solution See Rx Instructions SC ACHS Rx Instructions: per sliding scale Subcutaneously before meals and at bedtime; Take 1 unit of insulin for ever 4 carbohydrates consumed. Anticipate need for 25 units needed for each meal with adjustments up/down based on carbohydrate content. bupropion HCl 300 mg tablet extended release 24 hr 300 mg PO QAM lisinopril 2.5 mg tablet 2.5 mg PO DAILY gabapentin 600 mg Tablet 600 mg PO AMHS pantoprazole 40 mg tablet,delayed release (DR/EC) 40 mg PO QAM metformin 1,000 mg tablet 1,000 mg PO AMHS potassium chloride 20 mEq Tablet,Er Particles/Crystals 40 meq PO QAM Qty: 60 0RF furosemide 20 mg tablet 20 mg PO QAM Mag 64 64 mg Tablet,Delayed Release (Dr/Ec) 64 mg PO QAM Qty: 30 1RF (DME) BiPap Machine Misc Rx Instructions: BiPAP 09/02, mask fit patient comfort, heated humidification, compliance download capabilities, [facility], please use 's contact phone number; acetaminophen 325 mg Tablet 650 mg PO Q6 MDD 3g PRN (Reason: pain 1-10) aspirin 325 mg Tablet 650 mg PO Q6 MDD 3g PRN (Reason: temp>100) Rx Instructions: while awake rosuvastatin 40 mg Tablet 40 mg PO HS metoprolol tartrate 100 mg tablet 100 mg PO AMHS insulin glargine [Basaglar KwikPen U-100 Insulin] 100 unit/mL (3 mL) insulin pen 22 unit SUBCUT HS insulin glargine [Basaglar KwikPen U-100 Insulin] 100 unit/mL (3 mL) insulin pen 30 unit SUBCUT QAM Discontinued cephalexin 500 mg capsule 500 mg PO Q6H Qty: 120 0RF Discharge Orders: Discharge Order (Routine); Ordered 05/04/23 Ordered By: Kaushal Alvarado Admission Data Admit Date/Time: 04/30/23 23:44 Attending Provider: Makenna Bravo Admit Provider: Quentin Gray Primary Care Provider: Kaushal Johnson Other Providers: Quentin Gray; [facility]; Ifeanyi Garica Other Interventions: Discharge Summary Assessment (RN) Last Done: 05/04/23 15:04 Supervising Physician Co-Signing Physician Notes Attending Physician Supervision Note: I independently interviewed and examined the patient and verified the lei history and physical, reviewed labs and image studies and agree with findings and care plan noted above. denies any concerns. no dizziness with standing. no pain in foot. vitals noted nad heent nc at mmm breathing unlabored no accessory muscles good effort skin no rashes no pallor or icterus neuro no focal deficits. left heel - 2-3cm wide deep with black eschar. no drainage. Syncope - sec to DKA d/t uncontrolled type DM - Also with underlying orthostatic hypotension - symptomatically better with IVF. Blood sugars better controlled. Uncontrolled DM - already has CGM - but sensor not working - to get it arranged on discharge. - Seen by gift shop manager - to use glucometer while waiting to get CGM sensor - rx given on discharge. Right heel wound/eshcar - New finding during this hospital stay. Seen by podiatry - no inpatient intervention needed. To follow up with podiatry as outpatient. Recent h/o MSSA osteomyelitis involving right foot/status post amputation on 03/06/2023- - Had finished 4 wk course of abx in March 2023. - Had MRI right foot and ankle this admission: no acute findings, only postoperative inflammatory signals with minimal amount of marrow edema - was given IV abx on admit. with no concern of new infection - abx d/c. Resident Activity Tracking Resident Involvement: Resident Care Provided Care Provided: [facility]
--- NOTE | 2023-05-15 13:03 | Coding Query ---
CHRONIC KIDNEY DISEASE To promote full compliance with coding requirements relating to patient care, physician participation is requested in all cases of breakdown worker uncertainty. Please assist us with the question(s) below: Coding Question(s): The record reflects the following clinical findings: CKD documented without stage, unable to take NSAIDs Please specify the known or suspected type by placing an "X" within the parenthesis (x). If other, please document type. Please document Staging if known: ( x) Stage I >90 Kidney damage with normal or elevated GFR. ( ) Stage II 60-89 Kidney damage with mildly decreased kidney function Stage III 30-59 Moderately decreased kidney function ( ) Stage IIIA 45-59 ( ) Stage IIIB 30-44 ( ) Stage III, unspecified ( ) Stage IV 15-29 Severely decreased kidney function ( ) Stage V <15 Renal failure (or dialysis) ( ) End Stage ( ) Unknown Thank you Anita CARUSO
== END 2023-05-04 15:31 | disposition home health service (06) | DRG 638 ==
LOC: SUATTDRO → ED 19:14 → EDINP 23:44 → SUATTDRO 23:44 → 2S 05-01 15:13